=== PATIENT | male | born 1980 | race Caucasian/White ===

== ENCOUNTER 2019-08-28 22:25 | Emergency (ER) | payer MEDICARE, SELFPAY ==
--- NOTE | ~2019-08-28 | XR_ITS ---
XR chest 2V 08/28/2019 23:34 Indication: Cough and fever Procedure: 2 view chest Comparison: No prior studies for comparison. Findings: Patchy left-sided airspace disease, consistent with pneumonia. No pleural effusion. Heart s ize normal. No edema or pneumothorax. No acute osseous abnormality. There are cholecystectomy clips. Impression: 1: Patchy left-sided pneumonia. Reviewed, dictated and finalized at location A. Impression: 1: Patchy left-sided pneumonia.
[2019-08-28 22:31] VITALS: BP 158/85; PULSE 86; RESP 18; TEMP 37.4; O2SAT 100
[2019-08-28 22:55] LABS: Basophils Percent Auto 0.3 % (0.2-1.2); Eosinophils Percent Auto 0.3 % (0-4.4); Hematocrit 23.8 % (42.0-52.0); Hemoglobin 8.3 g/dL (14.0-18.0); Immature Granulocyte Absolute 0.06 K/mm3 (0.00-0.031); Immature Granulocyte Percent A 0.5 % (0-0.5); Lymphocytes Percent Auto 7.5 % (18.3-44.2); Mean Corpuscular HGB Conc 34.9 g/dl (32-36); Mean Corpuscular Hemoglobin 30.5 pg (26-34); Mean Corpuscular Volume 87.5 fl (80-100); Monocytes Absolute Auto 1.1 K/mm3 (0.1-0.6); Monocytes Percent Auto 9.4 % (2.6-8.5); Neutrophils Absolute Auto 9.9 K/mm3 (1.3-6.7); Platelet Count Result 229 k/mm3 (150-375); Red Blood Count 2.72 M/mm3 (4.6-6.20); Red Cell Distribution Width 12.7 % (11.5-14.5)
[2019-08-28 23:05] LABS: Alanine Aminotransferase 24 U/L (4-50); Alkaline Phosphatase 93 U/L (38-126); Aspartate Amino Transferase 25 U/L (17-59); Bilirubin,Total 0.4 mg/dL (0.2-1.3); Blood Urea Nitrogen 46 mg/dL (9-20); Calcium 8.3 mg/dL (8.4-10.2); Carbon Dioxide 28 mmol/L (22-30); Chloride 101 mmol/L (98-107); Estimated CRCL calculation 14 ml/min; Estimated Glomerular Filt Rate 10; Glucose 85 mg/dL (75-110); Potassium 3.9 mmol/L (3.4-5.0); Sodium 137 mmol/L (137-145)
[2019-08-28 23:06] LABS: Lactic Acid 1.2 mmol/L (0.7-2.1)
--- NOTE | 2019-08-29 00:08 | ED.FEVER ---
HPI - Fever General Chief Complaint: Fever Stated Complaint: fever Time Seen by Provider: 08/28/19 22:52 History of Present Illness HPI Narrative: Patient is a 38-year-old male who presents the ER with fever beginning yesterday. Associated with sinus congestion as well as productive cough. No dyspnea. Reports he has an 8-month-old son who recently had a URI and an ear infection. Patient has been practicing intense social distancing as there is a child in the home who is currently undergoing cancer treatments. Patient has not been treating his fevers because he does not know what medicine he can take. He is currently on peritoneal dialysis for end-stage renal disease related to diabetes. Related Data Allergies Allergy/AdvReac Type Severity Reaction Status Date / Time fluorescein Allergy Severe HIVES, BP Verified 05/30/16 17:43 DROPPED, SWELLING TONGUE Penicillins Allergy Unknown Unknown Verified 08/28/19 22:34 Sulfa (Sulfonamide Allergy Unknown Unknown Verified 08/28/19 22:34 Antibiotics) Review of Systems Review of Systems: All systems reviewed & are unremarkable except as noted in HPI and below Constitutional: Constitutional: Denies chills, Denies fatigue and Reports fever(s) ENT: Reports nasal congestion and Denies sore throat Cardiovascular: Cardiovascular: Denies chest pain and Denies radiating jaw, neck or arm pain Respiratory: Respiratory: Reports cough, Denies dyspnea and Denies wheezing PMFSH Past Medical History Medical History (Updated 08/29/19 @ 00:14 by Pascual Arevalo MD) End stage renal disease Type 1 diabetes Surgical History Surgical History (Updated 08/29/19 @ 00:13 by Pascual Arevalo MD) Presence of peritoneal dialysis catheter Previous back surgery Social History Social History (Updated 08/29/19 @ 00:13 by Pascual Arevalo MD) Smoking status: Never smoker Exam Narrative: Exam Narrative: GENERAL: Well-appearing, well-nourished, and in no acute distress. HEAD: Normocephalic, atraumatic. ENT: Mucous membranes moist. Pharyngeal erythema tonsillar exam. TMs normal bilaterally. CHEST: Clear to auscultation. No respiratory distress. HEART: Regular rate and rhythm. Normal peripheral pulses. ABDOMEN: Soft, nontender, nondistended, right side peritoneal dialysis catheter without tenderness. EXTREMITIES: Normal range of motion. No edema. SKIN: Warm, dry, no rash. NEURO: Alert and oriented x3. 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 Will prescribe azithromycin. Recommend Tylenol for fever. Vital Signs Vital signs: Vital Signs Temperature 99.4 F 08/28/19 22:31 Pulse Rate 86 08/28/19 22:31 Respiratory Rate 18 08/28/19 22:31 Blood Pressure 158/85 H 08/28/19 22:31 Pulse Oximetry 100 08/28/19 22:31 Temperature 99.4 F 08/28/19 22:31 Pulse Rate 86 08/28/19 22:31 Respiratory Rate 18 08/28/19 22:31 Blood Pressure 158/85 H 08/28/19 22:31 Pulse Oximetry 100 08/28/19 22:31 MDM - Fever Lab Data Result diagrams: 08/28/19 22:46 08/28/19 22:46 Labs: Lab Results 08/28/19 08/28/19 08/28/19 Range/Units 22:46 22:46 22:46 WBC 12.0 H (4.5-10.0) K/mm3 RBC 2.72 L (4.6-6.20) M/mm3 Hgb 8.3 L (14.0-18.0) g/dL Hct 23.8 L (42.0-52.0) % MCV 87.5 (80-100) fl MCH 30.5 (26-34) pg MCHC 34.9 (32-36) g/dl RDW 12.7 (11.5-14.5) % Plt Count 229 (150-375) k/mm3 MPV 10.0 (7.4-10.4) fl Immature Gran % (Auto) 0.5 (0-0.5) % Neut % (Auto) 82.0 H (45.5-73.1) % Lymph % (Auto) 7.5 L (18.3-44.2) % [place] % (Auto) 9.4 H (2.6-8.5) % Eos % (Auto) 0.3 (0-4.4) % Baso % (Auto) 0.3 (0.2-1.2) % Lymph # (Auto) 0.90 (0.9-3.2) K/mm3 [place] # (Auto) 1.1 H (0.1-0.6) K/mm3 Eos # (Auto) 0.0 (0-0.3) K/mm3 Baso # (Auto) 0.0 (0.0-0.1) K/mm3 Abs Immat Gran (auto) 0.06 H (0.00-0.031) K/mm3 Absolute Neuts (auto) 9.9 H
[2019-08-29] MEDS: ACETAMINOPHEN 500 MG TABLET PO (00:09)
[2019-08-29 00:13] VITALS: BP 149/84; PULSE 85; RESP 18; O2SAT 98
== END 2019-08-29 00:22 | disposition home or self-care (01) ==
PROVIDERS: Emergency Provider Emergency Medicine; PCP Physician Assistant
DX: E10.22 Type 1 diabetes mellitus with diabetic chronic kidney disease (principal); N18.6 End stage renal disease; Z99.2 Dependence on renal dialysis; J18.9 Pneumonia, unspecified organism
CPT/HCPCS: 36415; 71046; 80053; 83605; 85025; 99283; A9270

== ENCOUNTER 2019-11-04 16:36 | Emergency (ER) | payer MEDICARE, SELFPAY ==
[2019-11-04 16:48] VITALS: BP 142/88; PULSE 72; RESP 17; TEMP 36.3; O2SAT 96
[2019-11-04] MEDS: diphenhydrAMINE HCl INJ 50 MG/ML VIAL 25 MG IV PUSH (17:32)
[2019-11-04] MEDS: METOCLOPRAMIDE HCL INJ 10 MG/2 ML VIAL 5 MG IV PUSH (17:32)
[2019-11-04] MEDS: SODIUM CHLORIDE 0.9% IV 100 ML 400 ML (17:33)
--- NOTE | 2019-11-04 18:11 | ED.HA ---
HPI - Headache General Chief Complaint: Headache Stated Complaint: headaches x 2 weeks Time Seen by Provider: 11/04/19 16:56 History of Present Illness HPI Narrative: Patient is a 39-year-old male who presents the ER with headache. Reports he has had a headache since 10/18 when he had surgery on his diabetic eye. Symptoms worse over the last few days. He has been prescribed Fioricet which caused him to have diarrhea. No relief with Tylenol. No fevers or chills or sweats. Reports he has had some difficulty with depth perception over the last 24 hours but no flashers/floaters/blurred vision. No trauma to the eye. Headache is left-sided and aching but is occasionally sharp. Radiates backwards. Sensitive to light Related Data Home Medications Medication Instructions Recorded Confirmed albuterol sulfate [Ventolin HFA] INHALATION 11/04/19 alprazolam 11/04/19 amlodipine 11/04/19 frkuquaodq-axagksquubdoy-rfik cap 11/04/19 ergocalciferol (vitamin D2) 11/04/19 11/04/19 [Vitamin D2] escitalopram oxalate mg 11/04/19 furosemide 11/04/19 hydralazine 11/04/19 insulin lispro [Humalog U-100 11/04/19 Insulin] irbesartan mg 11/04/19 labetalol 11/04/19 metoprolol tartrate 11/04/19 naloxone [Narcan] INTRANASAL 11/04/19 terazosin mg 11/04/19 tramadol mg 11/04/19 Allergies Allergy/AdvReac Type Severity Reaction Status Date / Time fluorescein Allergy Severe HIVES, BP Verified 11/04/19 16:45 DROPPED, SWELLING TONGUE Penicillins Allergy Unknown Unknown Verified 11/04/19 16:45 Sulfa (Sulfonamide Allergy Unknown Unknown Verified 11/04/19 16:45 Antibiotics) Review of Systems Review of Systems: All systems reviewed & are unremarkable except as noted in HPI and below Constitutional: Constitutional: Denies chills, Denies fever(s) and Denies weakness Eyes: Eyes: Denies change in vision and Reports photophobia Neurologic: Reports headache(s), Denies focal weakness and Denies numbness PMFSH Past Medical History Medical History (Updated 11/04/19 @ 18:21 by Pascual Arevalo MD) End stage renal disease Type 1 diabetes Surgical History Surgical History (Updated 08/29/19 @ 00:13 by Pascual Arevalo MD) Presence of peritoneal dialysis catheter Previous back surgery Social History Social History (Updated 08/29/19 @ 00:13 by Pascual Arevalo MD) Smoking status: Never smoker Gender identity (if verbalized by the patient): Male Exam Narrative: Exam Narrative: GENERAL: Well-appearing, well-nourished, and in no acute distress. HEAD: Normocephalic, atraumatic. EYES: PERRL, EOMI ENT: Mucous membranes moist. CHEST: Clear to auscultation. No respiratory distress. HEART: Regular rate and rhythm. Normal peripheral pulses. EXTREMITIES: Normal range of motion. No edema. NEURO: Alert and oriented x3. Course Course Emergency Course: Headache is gone from 10/01 to 06/01 after Tylenol, Reglan, and Benadryl. Vital Signs Vital signs: Vital Signs Temperature 97.3 F L 11/04/19 16:48 Pulse Rate 72 11/04/19 16:48 Respiratory Rate 17 11/04/19 16:48 Blood Pressure 142/88 H 11/04/19 16:48 Pulse Oximetry 96 11/04/19 16:48 Temperature 97.3 F L 11/04/19 16:48 Pulse Rate 72 11/04/19 16:48 Respiratory Rate 17 11/04/19 16:48 Blood Pressure 142/88 H 11/04/19 16:48 Pulse Oximetry 96 11/04/19 16:48 Discharge Plan Discharge Clinical Impression: Headache Patient Disposition: Home, Self-Care Condition: Stable Instructions: Migraine Headache (ED) Additional Instructions: Return the ER if you have fever over 100.4 ?F, you cannot keep down food or water, you have chest pain with shortness of breath, you have additional concerns. Prescriptions: New metoclopramide HCl [Reglan] 5 mg tablet 5 mg PO BID Qty: 7 RF: 0 No Action labetalol 200 mg tablet RF: 0 tramadol 50 mg tablet RF: 0 alprazolam 0.5 mg tablet
[2019-11-04 18:38] VITALS: BP 139/90; PULSE 88; RESP 16; O2SAT 98
== END 2019-11-04 18:39 | disposition home or self-care (01) ==
PROVIDERS: Emergency Provider Emergency Medicine; PCP Physician Assistant
DX: R51 Headache (principal); E10.22 Type 1 diabetes mellitus with diabetic chronic kidney disease; N18.6 End stage renal disease; Z99.2 Dependence on renal dialysis
CPT/HCPCS: 96361; 96374; 96375; 99284; J0131; J1200; J2765

== ENCOUNTER 2019-11-08 10:27 | Emergency (ER) | payer MEDICARE, MEDICAID, SELFPAY ==
[2019-11-08] VITALS (9 sets, daily range): BP systolic 187–228; BP diastolic 94–122; PULSE 81–103; RESP 16–19; TEMP 36.7; O2SAT 95–97
--- NOTE | ~2019-11-08 | XR_ITS ---
EXAMINATION: XR chest 1V portable EXAM DATE: 11/08/2019 10:59 INDICATION: Chest pain, vomiting. Hiccups for 2 days. TECHNIQUE: Portable AP frontal chest x-ray was obtained. Comparison is made to prior examination from 08/28/2019. FINDINGS: Previously seen patchy left upper lobe infiltrate has resolved. The lungs are clear. There are no pleural effusions. The cardiomediastinal silhouette is within normal limits. There is no pn eumothorax suspected. The bones and soft tissues are unremarkable. IMPRESSION: No acute cardiopulmonary findings. Reviewed, dictated and finalized at location A.
--- NOTE | 2019-11-08 10:43 | ECG_ITS ---
Measurements Intervals [place] Rate: 88 P: 62 TN: 137 QRS: 27 QRSD: 93 T: 65 QT: 373 QTc: 454 Interpretive Statements SINUS RHYTHM LEFT ATRIAL ENLARGEMENT BORDERLINE R WAVE PROGRESSION, ANTERIOR LEADS BORDERLINE ECG Electronically Signed On 11-08-2019 11:20:52 CDT by Lokesh Luna D.O.
[2019-11-08] MEDS: FAMOTIDINE 20 MG/2 ML VIAL IV PUSH (10:59)
[2019-11-08] MEDS: METOCLOPRAMIDE HCL INJ 10 MG/2 ML VIAL IV PUSH (10:59)
[2019-11-08] MEDS: SODIUM CHLORIDE 0.9% IV 500 ML 999 ML IV CONT ×2 (10:59→13:56)
[2019-11-08 11:02] LABS: Alanine Aminotransferase 34 U/L (4-50); Albumin Level 3.2 g/dL (3.5-5.1); Alkaline Phosphatase 133 U/L (38-126); Anion Gap 10 mmol/L (8-16); Aspartate Amino Transferase 29 U/L (17-59); Basophils Percent Auto 0.3 % (0.2-1.2); Bilirubin,Total 0.5 mg/dL (0.2-1.3); Blood Urea Nitrogen 61 mg/dL (9-20); Calcium 8.6 mg/dL (8.4-10.2); Carbon Dioxide 29 mmol/L (22-30); Chloride 91 mmol/L (98-107); Eosinophils Absolute Auto 0.1 K/mm3 (0-0.3); Eosinophils Percent Auto 0.9 % (0-4.4); Estimated CRCL calculation 14 ml/min; Estimated Glomerular Filt Rate 9; Glucose 418 mg/dL (75-110); Hematocrit 50.5 % (42.0-52.0); Hemoglobin 17.2 g/dL (14.0-18.0); Immature Granulocyte Absolute 0.02 K/mm3 (0.00-0.031); Immature Granulocyte Percent A 0.2 % (0-0.5); Lipase 38 U/L (23-300); Lymphocytes Absolute Auto 0.82 K/mm3 (0.9-3.2); Lymphocytes Percent Auto 9.5 % (18.3-44.2); Mean Corpuscular HGB Conc 34.1 g/dl (32-36); Mean Corpuscular Hemoglobin 29.9 pg (26-34); Mean Corpuscular Volume 87.8 fl (80-100); Mean Platelet Volume 11.1 fl (7.4-10.4); Monocytes Absolute Auto 0.6 K/mm3 (0.1-0.6); Monocytes Percent Auto 6.6 % (2.6-8.5); Neutrophils Absolute Auto 7.1 K/mm3 (1.3-6.7); Neutrophils Percent Auto 82.5 % (45.5-73.1); Platelet Count Result 201 k/mm3 (150-375); Potassium 4.1 mmol/L (3.4-5.0); Red Blood Count 5.75 M/mm3 (4.6-6.20); Red Cell Distribution Width 13.4 % (11.5-14.5); Sodium 130 mmol/L (137-145); White Blood Count 8.6 K/mm3 (4.5-10.0)
[2019-11-08 11:06] LABS: INR 0.9; Prothrombin Time 11.9 Seconds (11.1-14.7)
[2019-11-08 11:07] LABS: Partial Thromboplastin Time 26.1 SECONDS (22.3-36.8)
[2019-11-08 11:13] LABS: Troponin I 0.025 ng/mL (0.000-0.034)
[2019-11-08] MEDS: METOPROLOL TARTRATE INJ 5 MG/5 ML VIAL IV PUSH ×2 (11:47→12:34)
[2019-11-08] MEDS: hydrALAZINE HCL 20 MG/ML VIAL 10 MG IV PUSH (11:47)
[2019-11-08 11:52] LABS: Lactic Acid Reflex 0.8 mmol/L (0.7-2.1)
--- NOTE | 2019-11-08 13:25 | ED.GENADULT ---
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 Patient notes some discomfort across the upper chest worse with hiccuping. Patient denies rectal bleeding or hematemesis. Patient denies any abdominal pain. Patient was seen yesterday at an urgent care and given Zofran which has not helped. Related Data Home Medications Medication Instructions Recorded Confirmed albuterol sulfate [Ventolin HFA] INHALATION 11/04/19 alprazolam 11/04/19 amlodipine 11/04/19 hthlncaymg-icbvnlicwqbaw-eqqb cap 11/04/19 ergocalciferol (vitamin D2) 11/04/19 11/04/19 [Vitamin D2] escitalopram oxalate mg 11/04/19 furosemide 11/04/19 hydralazine 11/04/19 insulin lispro [Humalog U-100 11/04/19 Insulin] irbesartan mg 11/04/19 labetalol 11/04/19 metoprolol tartrate 11/04/19 naloxone [Narcan] INTRANASAL 11/04/19 terazosin mg 11/04/19 tramadol mg 11/04/19 Allergies Allergy/AdvReac Type Severity Reaction Status Date / Time fluorescein Allergy Severe HIVES, BP Verified 11/08/19 11:12 DROPPED, SWELLING TONGUE Penicillins Allergy Unknown Unknown Verified 11/08/19 11:12 Sulfa (Sulfonamide Allergy Unknown Unknown Verified 11/08/19 11:12 Antibiotics) Review of Systems Review of Systems: All systems reviewed & are unremarkable except as noted in HPI and below PMFSH Past Medical History Medical History End stage renal disease Type 1 diabetes Surgical History Surgical History Presence of peritoneal dialysis catheter Previous back surgery Social History Social History Smoking status: Never smoker Gender identity (if verbalized by the patient): Male Exam Narrative: Exam Narrative: GENERAL: Well-appearing, well-nourished, and in no acute distress. HEAD: Normocephalic, atraumatic. EYES: PERRLA and EOMI. ENT: Nares clear, no rhinorrhea or epistaxis. Mucous membranes moist. CHEST: Clear to auscultation. No respiratory distress. No wheezes rales or rhonchi HEART: Regular rate and rhythm. No murmur heard. Normal peripheral pulses. ABDOMEN: Soft, nontender, nondistended EXTREMITIES: Normal range of motion. No edema. SKIN: Warm, dry, no rash. NEURO: No focal deficits. Alert and oriented x3. Cranial nerves II through XII grossly intact PSYCH: Normal mood and affect. Course Course Emergency Course: Patient in the room at this time in no distress feeling much better with interventions afebrile nontoxic-appearing aware of discussions and recommendations of his hand method lasting machine operator patient notes that his hiccups have resolved psoas is emesis blood pressure is much improved and he is tolerating p.o. intake Consultations Consultation #1: Discussed case with Dr. sourav schultz the hand method lasting machine operator who feels it is safe to send the patient home with outpatient follow-up Date: 11/08/19 Time: 14:09 Vital Signs Vital signs: Vital Signs Temperature 98.0 F 11/08/19 10:38 Pulse Rate 91 11/08/19 10:38 Respiratory Rate 18 11/08/19 10:38 Blood Pressure 213/119 H 11/08/19 10:38 Pulse Oximetry 97 11/08/19 10:38 Temperature 98.0 F 11/08/19 10:38 Pulse Rate 81 11/08/19 14:04 Respiratory Rate 16 11/08/19 14:04 Blood Pressure 191/94 H 11/08/19 14:04 Pulse Oximetry 95 11/08/19 14:04 Medical
[2019-11-08] MEDS: chlorproMAZINE HCL 25 MG TABLET PO (13:26)
== END 2019-11-08 15:04 | disposition home or self-care (01) ==
PROVIDERS: Emergency Medicine Emergency Medical Services; Emergency Provider Emergency Medicine; PCP Physician Assistant
DX: R11.2 Nausea with vomiting, unspecified (principal); E11.22 Type 2 diabetes mellitus with diabetic chronic kidney disease; N18.6 End stage renal disease; Z79.4 Long term (current) use of insulin; Z99.2 Dependence on renal dialysis
CPT/HCPCS: 36415; 71045; 80048; 80076; 83605; 83690; 84484; 85025; 85610; 85730; 87040; 93005; 96361; 96374; 96375; 96376; 99284; A9270; J0131; J0360; J2765; J7040

== ENCOUNTER 2019-11-12 20:53 | Emergency (ER) | payer MEDICARE, MEDICAID, SELFPAY ==
--- NOTE | ~2019-11-12 | XR_ITS ---
EXAMINATION: XR chest 2V DATE: 11/12/2019 21:39 INDICATION: Mid chest pain. Hiccups. TECHNIQUE: Frontal and lateral views of the chest were obtained. COMPARISON: Chest single view 11/08/2019, CT abdomen and pelvis 12/01/2015 FINDINGS: The chest demonstrates clear lungs without pneumonia, pleural effusion, or pneumothorax. Th e heart size is normal. Surgical clips in the right upper quadrant are likely from cholecystectomy. IMPRESSION: 1. No acute cardiopulmonary disease. Reviewed, dictated and finalized at location A.
[2019-11-12 20:56] VITALS: BP 194/103; PULSE 89; RESP 18; TEMP 36.8; O2SAT 98
--- NOTE | 2019-11-12 21:24 | ECG_ITS ---
Measurements Intervals [place] Rate: 82 P: 54 [place]: 144 QRS: 15 QRSD: 93 T: 50 QT: 400 QTc: 469 Interpretive Statements SINUS RHYTHM LEFT ATRIAL ENLARGEMENT BORDERLINE R WAVE PROGRESSION, ANTERIOR LEADS BASELINE ARTIFACT- I, II, III, V4-V6 BORDERLINE ECG Electronically Signed On 11-13-2019 6:52:30 CDT by Lokesh Luna D.O.
--- NOTE | 2019-11-12 21:33 | ED.GENADULT ---
HPI - General Adult General Chief complaint: Unspecified Stated complaint: indigestion real bad Time Seen by Provider: 11/12/19 21:03 Source: patient Mode of arrival: ambulatory Limitations: no limitations History of Present Illness HPI narrative: 49 years old white male presents with a cup for the last 7 days. Get better sometimes with vomiting, nothing make it worse. Patient denies any fever, chills, chest pain, shortness of breath, abdominal pain, back pain, headache, or similar symptoms. History of type 1 diabetes, hypertension, peritoneal dialysis. Patient denies smoking, drinking or using marijuana. Related Data Home Medications Medication Instructions Recorded Confirmed albuterol sulfate [Ventolin HFA] INHALATION 11/04/19 alprazolam 11/04/19 amlodipine 11/04/19 crkpixtevi-ioktcvdjqases-yuua cap 11/04/19 ergocalciferol (vitamin D2) 11/04/19 11/04/19 [Vitamin D2] escitalopram oxalate mg 11/04/19 furosemide 11/04/19 hydralazine 11/04/19 insulin lispro [Humalog U-100 11/04/19 Insulin] irbesartan mg 11/04/19 labetalol 11/04/19 metoprolol tartrate 11/04/19 naloxone [Narcan] INTRANASAL 11/04/19 terazosin mg 11/04/19 tramadol mg 11/04/19 Allergies Allergy/AdvReac Type Severity Reaction Status Date / Time fluorescein Allergy Severe HIVES, BP Verified 11/12/19 21:03 DROPPED, SWELLING TONGUE Penicillins Allergy Unknown Unknown Verified 11/12/19 21:03 Sulfa (Sulfonamide Allergy Unknown Unknown Verified 11/12/19 21:03 Antibiotics) Review of Systems Review of Systems: Narrative: CONSTITUTIONAL: Denies fever, chills, or sweats. EYES: Denies visual changes, redness, or discharge. ENT: Denies rhinorrhea, congestion, sore throat, or otalgia. CARDIOVASCULAR: Denies chest pain, palpitations, or edema. RESPIRATORY: Denies cough or dyspnea. GASTROINTESTINAL: Denies abdominal pain, nausea, vomiting, or diarrhea. GENITOURINARY: Denies dysuria or hematuria. SKIN: Denies rash or itching. MUSCULOSKELETAL: Denies back pain, joint pain, or myalgia. NEUROLOGIC: Denies headache, numbness, or weakness. PSYCHIATRIC: Denies anxiety or depression. [facility] Past Medical History Medical History End stage renal disease Type 1 diabetes Surgical History Surgical History Presence of peritoneal dialysis catheter Previous back surgery Social History Social History Smoking status: Never smoker Gender identity (if verbalized by the patient): Male Exam Narrative: Exam Narrative: General appearance: Well-developed, well-nourished Skin: Normal color Head: Normocephalic, nontraumatic Eyes: Clear conjunctiva ENT: Oropharynx normal, ears normal, nose normal Neck: Supple, nontender Chest and respiratory: Airway patent, no respiratory distress, no accessory muscle use Heart: Regular rate/rhythm Abdomen: Soft, nontender, no organomegaly, quiet bowel sounds Vascular: Normal peripheral pulses, normal capillary refill. Musculoskeletal: Normal range of motion, nontender back Neurologic: Alert and oriented ?3, SVP is normal as tested, no gross motor deficit Course Course Emergency Course: Stable Consultations Consultation #1: DR PANCHAL Date: 11/12/19 Time: 22:34 Vital Signs Vital signs: Vital Signs Temperature 36.8 C 11/12/19 20:56 Pulse Rate 89 11/12/19 20:56 Respiratory Rate 18 11/12/19 20:56 Blood Pressure 194/103 H 11/12/19 20:56 Pulse Oximetry 98 11/12/19 20:56 Temperature 36.8 C 11/12/19 20:56 Pulse Rate 89 11/12/19 20:56 R
[2019-11-12 21:39] LABS: Basophils Percent Auto 0.5 % (0.2-1.2); Eosinophils Absolute Auto 0.2 K/mm3 (0-0.3); Eosinophils Percent Auto 2.4 % (0-4.4); Hematocrit 48.1 % (42.0-52.0); Hemoglobin 16.5 g/dL (14.0-18.0); Immature Granulocyte Absolute 0.02 K/mm3 (0.00-0.031); Immature Granulocyte Percent A 0.3 % (0-0.5); Lymphocytes Absolute Auto 1.05 K/mm3 (0.9-3.2); Lymphocytes Percent Auto 13.8 % (18.3-44.2); Mean Corpuscular HGB Conc 34.3 g/dl (32-36); Mean Corpuscular Hemoglobin 29.8 pg (26-34); Mean Corpuscular Volume 86.8 fl (80-100); Mean Platelet Volume 10.2 fl (7.4-10.4); Monocytes Absolute Auto 0.7 K/mm3 (0.1-0.6); Monocytes Percent Auto 9.3 % (2.6-8.5); Neutrophils Absolute Auto 5.6 K/mm3 (1.3-6.7); Neutrophils Percent Auto 73.7 % (45.5-73.1); Platelet Count Result 253 k/mm3 (150-375); Red Blood Count 5.54 M/mm3 (4.6-6.20); Red Cell Distribution Width 13.2 % (11.5-14.5); White Blood Count 7.6 K/mm3 (4.5-10.0)
[2019-11-12 21:42] LABS: Add Urine Microscopic? YES; Appearance Urine Clear (Clear); Bacteria Urine Trace /hpf; Bilirubin Urine Negative (Negative); Blood Urine Negative (Negative); Color Urine Yellow (Yellow); Glucose Urine UA 3+ mg/dL (Negative); Ketones Urine Negative (Negative); Leukocyte Esterase Ur Negative LEU/UL (Negative); Mucus Urine Rare /lpf; Nitrate Urine Negative (Negative); Protein Urine 3+ mg/dL (Negative); RBC Urine 0-2 /hpf (0-2); Specific Grav Ur 1.013 (1.001-1.035); Squamous Epithelial Cell Urine Rare /hpf (Few); Urobilinogen Urine Negative mg/dL (<2.0); WBC Urine 0-3 /hpf
[2019-11-12] MEDS: METOCLOPRAMIDE HCL INJ 10 MG/2 ML VIAL IV PUSH (21:46)
[2019-11-12 21:50] LABS: Alanine Aminotransferase 35 U/L (4-50); Albumin Level 2.6 g/dL (3.5-5.1); Alkaline Phosphatase 101 U/L (38-126); Amylase 52 U/L (30-110); Anion Gap 4 mmol/L (8-16); Aspartate Amino Transferase 42 U/L (17-59); Bilirubin,Total 0.5 mg/dL (0.2-1.3); Blood Urea Nitrogen 54 mg/dL (9-20); Calcium 8.5 mg/dL (8.4-10.2); Carbon Dioxide 33 mmol/L (22-30); Chloride 95 mmol/L (98-107); Estimated CRCL calculation 13 ml/min; Estimated Glomerular Filt Rate 9; Glucose 153 mg/dL (75-110); Lipase 37 U/L (23-300); Potassium 3.1 mmol/L (3.4-5.0); Sodium 132 mmol/L (137-145)
[2019-11-12 22:09] LABS: Erythrocyte Sedimentation Rate 5 mm/hr (0-20)
[2019-11-12] MEDS: chlorproMAZINE HCL INJ 50 MG/2 ML AMP IM (22:47)
[2019-11-12 23:11] VITALS: BP 193/105; PULSE 88; RESP 18; O2SAT 98
== END 2019-11-12 23:12 | disposition home or self-care (01) ==
PROVIDERS: Emergency Provider Emergency Medicine; PCP Physician Assistant
DX: R06.6 Hiccough (principal); E10.22 Type 1 diabetes mellitus with diabetic chronic kidney disease; N18.6 End stage renal disease; Z79.4 Long term (current) use of insulin; Z99.2 Dependence on renal dialysis; E10.43 Type 1 diabetes mellitus with diabetic autonomic (poly)neuropathy; K31.84 Gastroparesis; R94.31 Abnormal electrocardiogram [ECG] [EKG]
CPT/HCPCS: 36415; 71046; 80053; 81001; 82150; 83690; 85025; 85652; 93005; 96372; 96374; 99284; J2765; J3230

== ENCOUNTER 2019-11-18 10:24 | Inpatient (IN) | payer MEDICARE, MEDICAID, SELFPAY ==
[2019-11-18] VITALS (19 sets, daily range): BP systolic 156–214; BP diastolic 88–114; PULSE 95–122; RESP 12–20; TEMP 36.1–37.2; O2SAT 94–100; BMI 21.3
--- NOTE | ~2019-11-18 | CT_ITS ---
EXAMINATION: CT BRAIN W/O DATE: 11/19/2019 06:34 INDICATION: Seizure TECHNIQUE: Computed tomography (CT) of the head was performed without intravenous contrast. The dose- length product was 605.33 mGy-cm. The mA was adjusted according to patient size. Iterative reconstruc tion technique was employed. COMPARISON: CT dated 05/30/2016 FINDINGS: Study degraded by motion artifact. Normal brain parenchymal volume for age. Normal kiser-whi te differentiation. No acute intracranial hemorrhage, infarction, mass or mass effect. No ventriculomegaly or midline shift. Midline sagittal images demonstrate a normal corpus callosum, c raniovertebral junction and sella turcica. Basilar cisterns are patent. Paranasal sinuses and mastoids are pneumatized. No depressed skull fractures. IMPRESSION: 1. No acute intracranial abnormality. Reviewed, dictated and finalized at location A.
--- NOTE | ~2019-11-18 | XR_ITS ---
EXAMINATION: XR chest 1V portable 11/18/2019 15:15 INDICATION: Chest pain. Leukocytosis. PROCEDURE: AP portable chest COMPARISON: 11/12/2019 FINDINGS: The lungs are clear. The cardiomediastinal silhouette is within normal limits. There are no pleural effusions. There is no pneumothorax suspected. IMPRESSION: 1: NO ACUTE CARDIOPULMONARY DISEASE. Reviewed, dictated and finalized at location A.
[2019-11-18 10:44] LABS: Glucose Point of Care > 500 (65-105)
--- NOTE | 2019-11-18 10:50 | ED.NAVMDI ---
HPI - Nausea/Vomiting/Diarrhea General Chief complaint: Nausea/Vomiting/Diarrhea Stated complaint: elevated blood suger, n/v Time Seen by Provider: 11/18/19 10:50 Source: patient Mode of arrival: ambulatory Limitations: no limitations History of Present Illness HPI Narrative: Pt c/o elev blood sugar accompanied by n/v and fatigue started yesterday. Pt denies any cp, sob, abd pain, diarrhea or fever. Related Data Home Medications Medication Instructions Recorded Confirmed albuterol sulfate [Ventolin HFA] INHALATION 11/04/19 alprazolam 11/04/19 amlodipine 11/04/19 qjstwjbsvc-rdijlngfczzzs-rvvz cap 11/04/19 ergocalciferol (vitamin D2) 11/04/19 11/04/19 [Vitamin D2] escitalopram oxalate mg 11/04/19 furosemide 11/04/19 hydralazine 11/04/19 insulin lispro [Humalog U-100 11/04/19 Insulin] irbesartan mg 11/04/19 labetalol 11/04/19 metoprolol tartrate 11/04/19 naloxone [Narcan] INTRANASAL 11/04/19 terazosin mg 11/04/19 tramadol mg 11/04/19 Allergies Allergy/AdvReac Type Severity Reaction Status Date / Time fluorescein Allergy Severe HIVES, BP Verified 11/18/19 10:34 DROPPED, SWELLING TONGUE Penicillins Allergy Unknown Unknown Verified 11/18/19 10:34 Sulfa (Sulfonamide Allergy Unknown Unknown Verified 11/18/19 10:34 Antibiotics) Review of Systems Review of Systems: All systems reviewed & are unremarkable except as noted in HPI and below Constitutional: Constitutional: Denies body ache(s), Denies chills, Denies excessive sweating, Denies fatigue, Denies fever(s), Denies headache(s), Denies lethargy, Denies malaise, Denies weakness and Denies weight loss Eyes: Eyes: Denies blurry vision, Denies change in vision and Denies loss of vision ENT: Denies dizziness, Denies ear discharge, Denies headache(s), Denies lip swelling, Denies epistaxis, Denies nasal congestion, Denies neck pain, Denies throat swelling and Denies tongue swelling Cardiovascular: Cardiovascular: Denies chest pain, Denies chest pain at rest, Denies chest pain with activity, Denies diaphoresis, Denies rapid heart rate, Denies edema, Denies irregular heart rhythm, Denies lightheadedness, Denies palpitations, Denies dyspnea and Denies dyspnea on exertion Respiratory: Respiratory: Denies chest congestion, Denies cough, Denies hemoptysis, Denies dyspnea and Denies dyspnea on exertion Gastrointestinal: Gastrointestinal: Denies abdominal pain, Denies melena, Denies hematochezia, Denies diarrhea and Denies hematemesis Musculoskeletal: Musculoskeletal: Denies abnormal gait, Denies deformity, Denies joint swelling, Denies limited range of motion, Denies neck pain and Denies numbness Neurologic: Denies Abnormal speech present, Denies abnormal gait, Denies confusion, Denies dizziness, Denies headache(s), Denies focal weakness, Denies loss of vision, Denies numbness, Denies Other visual disturbances, Denies Sensory deficit (Neuro) and Denies weakness Psychiatric: Psychiatric: Denies confusion, Denies depression, Denies auditory hallucinations, Denies homicidal ideation and Denies suicidal ideation Endocrine: Endocrine: Denies cold intolerance, Denies excessive sweating, Denies fatigue, Denies heat intolerance and Denies palpitations Hematologic/Lymphatic: Hematologic/Lymphatic: Denies easy bleeding and Denies easy bruising Allergic/Immunologic: Allergic/Immunologic: Denies lip swelling, Denies throat swelling and Denies tongue swelling PMF Social History Social History Smoking status: Never smoker Gender identity (if verbalized by the patient): Male Exam Const: General: cooperative, healthy appearing, comfortable, no acute distress, well developed, alert and awake; No confusion Orientation/consciousness: oriented to person, oriented to place, oriented to time, patient oriented x3 and No confusion Limitations: no limitations HENMT: Head: normal to inspection,
[2019-11-18 10:57] LABS: Basophils Percent Auto 0.3 % (0.2-1.2); Eosinophils Percent Auto 0.1 % (0-4.4); Hematocrit 44.5 % (42.0-52.0); Hemoglobin 15.5 g/dL (14.0-18.0); Immature Granulocyte Absolute 0.05 K/mm3 (0.00-0.031); Immature Granulocyte Percent A 0.4 % (0-0.5); Lymphocytes Absolute Auto 0.78 K/mm3 (0.9-3.2); Lymphocytes Percent Auto 6.5 % (18.3-44.2); Mean Corpuscular HGB Conc 34.8 g/dl (32-36); Mean Corpuscular Hemoglobin 29.2 pg (26-34); Mean Platelet Volume 10.6 fl (7.4-10.4); Monocytes Absolute Auto 0.8 K/mm3 (0.1-0.6); Monocytes Percent Auto 6.6 % (2.6-8.5); Neutrophils Absolute Auto 10.3 K/mm3 (1.3-6.7); Neutrophils Percent Auto 86.1 % (45.5-73.1); Platelet Count Result 264 k/mm3 (150-375); Red Cell Distribution Width 13.2 % (11.5-14.5); White Blood Count 11.9 K/mm3 (4.5-10.0)
[2019-11-18 11:04] LABS: Alveolar/Arterial O2 Gradient 15.6 mmHg; Base Excess ABG 4.6 mEq/l (+/-2.0); Carboxyhemoglobin 1.5 % THb (0-2.0); Fractional Inspired Oxygen 21 %; HCO3 ABG 28.2 mEq/l (22.0-26.0); Methemoglobin ABG 0.2 %THb (0-1.5); Oxygen Content ABG 20.4 %vol (16.0-22.0); Oxygen Saturation ABG 97.3 % (95.0-100.0); Oxyhemoglobin 95.1 % THb (90.0-100.0); PCO2 ABG 38.5 mmHg (35.0-45.0); PO2 FiO2 Ratio Arterial Blood 4.19 %; Reduced Hemoglobin 3.2 %THb (0-5.0); Total Hemoglobin 15.2 g/dL (12.0-18.0); pH ABG 7.483 (7.350-7.450)
[2019-11-18 11:05] LABS: Device ROOM AIR; Modified Allen's Test Pass; Site Drawn RIGHT RADIAL
[2019-11-18 11:18] LABS: Albumin Level 2.7 g/dL (3.5-5.1); Alkaline Phosphatase 107 U/L (38-126); Anion Gap 9 mmol/L (8-16); Aspartate Amino Transferase 47 U/L (17-59); Bilirubin,Total 0.5 mg/dL (0.2-1.3); Blood Urea Nitrogen 69 mg/dL (9-20); Calcium 8.8 mg/dL (8.4-10.2); Carbon Dioxide 33 mmol/L (22-30); Chloride 82 mmol/L (98-107); Estimated CRCL calculation 14 ml/min; Estimated Glomerular Filt Rate 9; Glucose 619 mg/dL (75-110); Magnesium 1.7 mg/dL (1.6-2.3); Phosphorus 4.3 mg/dL (2.5-4.5); Sodium 124 mmol/L (137-145)
[2019-11-18 11:20] LABS: Beta-Hydroxybutyrate/Acetoacetate 0.09 mmol/L (0.02-0.27)
[2019-11-18 11:21] LABS: Alanine Aminotransferase 42 U/L (4-50)
[2019-11-18] MEDS: METOCLOPRAMIDE HCL INJ 10 MG/2 ML VIAL IV PUSH (11:31)
[2019-11-18] MEDS: LACTATED RINGERS 1,000 ML 999 ML IV CONT (11:35)
--- NOTE | 2019-11-18 12:12 | PC.NURSE ---
Per verbal order of Dr. Archibald, only 500ml of lactated ringers was infused. Patient tolerated well.
[2019-11-18 12:25] LABS: Glucose Point of Care 452 (65-105)
[2019-11-18] MEDS: LABETALOL HCL INJ 100 MG/20 ML VIAL 20 MG IV PUSH ×2 (13:41→17:22)
[2019-11-18] MEDS: SODIUM CHLORIDE 0.9% IV 1,000 ML 100 ML IV CONT (13:43)
[2019-11-18 13:45] LABS: Add Urine Microscopic? YES; Appearance Urine Clear (Clear); Bilirubin Urine Negative (Negative); Blood Urine 1+ (Negative); Color Urine Yellow (Yellow); Glucose Urine UA 3+ mg/dL (Negative); Ketones Urine Negative (Negative); Leukocyte Esterase Ur Negative LEU/UL (Negative); Nitrate Urine Negative (Negative); Protein Urine 3+ mg/dL (Negative); RBC Urine 0-2 /hpf (0-2); Specific Grav Ur 1.015 (1.001-1.035); Urobilinogen Urine Negative mg/dL (<2.0); WBC Urine 0-3 /hpf
--- NOTE | 2019-11-18 14:17 | PM.IMHP ---
H&P: HPI History of Present Illness Date/Time: 11/18/19 14:17 Chief complaint: Severe Hyperglycemia/HTN URGENCY ESRD ON DIALYSIS Narrative: Ari Zuniga is a 39 year old male Who has end-stage renal disease. The patient does peritoneal dialysis. The patient does zone dialysis at home. On a nightly basis. The patient has diabetes type 1 that was diagnosed when he was about 10 years old. The patient stated he is on a list for a kidney transplant as well as a pancreas transplant. The patient came here with nausea vomiting and diarrhea. The patient has been very fatigued since yesterday. The patient has insulin pump and has been managing his own insulin until today. The patient stated that he feels too ill to be able to manage his insulin pump today. He has an anion gap of 9 and his blood sugar was greater than 500. His sodium was noted to be 124. His glucose was noted to be 452 with the last check. Creatinine 6.7 BUN 69 GFR is 14. The patient states that he does see Dr. Carmichael. Potassium was 3.0. He was not given any insulin but was given 2 500 mL boluses of LR in the emergency room. He was not given any insulin in ER due to fear of dropping his potassium even more. Patient's blood pressures are also running high. For 156/100 to 204/110 213/112 and last reading was 202/101. He was given Reglan IV push, IV potassium and oral potassium, and IV labetalol . Patient's beta hydroxybutyrate was noted to be normal at 0.09. Date of service 11/18/2019 Review of Systems Review of Systems: All systems reviewed & are unremarkable except as noted in HPI and below Constitutional: Constitutional: Reports as per HPI and Reports no additional constitutional complaints Eyes: Eyes: Reports as per HPI and Reports no additional eye complaints ENT: Reports system reviewed and no additional complaints, except as documented and Reports Normal hearing present Cardiovascular: Cardiovascular: Reports no additional cardiovascular complaints Respiratory: Respiratory: Reports as per HPI and Reports no additional respiratory complaints Gastrointestinal: Gastrointestinal: Reports as per HPI and Reports no additional gastrointestinal complaints Musculoskeletal: Musculoskeletal: Reports no additional musculoskeletal complaints Integumentary/Breasts: Skin/Breast: Reports system reviewed and no additional complaints, except as docu Neurologic: Reports system reviewed and no additional complaints, except as documented and Reports Normal hearing present Psychiatric: Psychiatric: Reports no additional psychiatric complaints and Reports as per HPI Endocrine: Endocrine: Reports no additional endocrine complaints Hematologic/Lymphatic: Hematologic/Lymphatic: Reports no additional hematologic/lymphatic complaints Allergic/Immunologic: Allergic/Immunologic: Reports no additional allergic/immunologic complaints [facility] Past Medical History Medical History (Updated 11/18/19 @ 14:43 by Savi Oleary NP) Anxiety Depression End stage renal disease End stage renal disease on dialysis peritoneal dialysis Hypertension Migraines Type 1 diabetes diagnosis at the age of 10 and has an insulin pump Surgical History Surgical History Presence of peritoneal dialysis catheter Previous back surgery Family History Family History (Updated 11/18/19 @ 14:44 by Savi Oleary NP) Mother Diabetes mellitus Social History Social History (Updated 11/18/19 @ 14:45 by Savi Oleary NP) Social History: the patient lives with his fiancee. He is disabled. The patient stated that he is on a transplant list for a kidney as well as pancreas. He has no biological children but is fiance has 1 child that he is raising. The patient is a lifelong nonsmoker. He denies any alcohol marijuana or illicit drug use. His fiancee is the durable power biological science technician fish for healthcare. He desires to be a full code. Smoking status:
[2019-11-18] MEDS: PROMETHAZINE HCL 25 MG/ML AMPUL 12.5 MG IV PUSH (15:02)
--- NOTE | 2019-11-18 15:10 | PC.NURSE ---
Receiving RN notified that patient is going to xray on the way to the floor. She is also notified that patient was given medication for nausea and vomiting.
--- NOTE | 2019-11-18 15:42 | ADMGEN ---
This patient, Ari Zuniga, was admitted to IMU Room 214-01. Patient/family oriented to hospital policies and general routines including ID bracelet, bed and alarms, visiting hours, pain management, procedures, bathroom and other care routines, personal items, smoking policy, room service/diet, and visiting hours. Valuables list has been completed. Information on how to activate the Rapid Response Team has been discussed. Patient/Family are encouraged to report perceived risks to care and to ask questions if they do not understand what they are told or what they should do.
[2019-11-18] MEDS: chlorproMAZINE HCL 10 MG TABLET PO (15:51)
[2019-11-18 16:21] LABS: Anion Gap 9 mmol/L (8-16); Blood Urea Nitrogen 71 mg/dL (9-20); Calcium 8.4 mg/dL (8.4-10.2); Carbon Dioxide 37 mmol/L (22-30); Chloride 82 mmol/L (98-107); Estimated CRCL calculation 14 ml/min; Estimated Glomerular Filt Rate 9; Glucose 534 mg/dL (75-110); Lipase 29 U/L (23-300); Potassium 3.1 mmol/L (3.4-5.0); Sodium 128 mmol/L (137-145)
[2019-11-18] MEDS: hydrALAZINE HCL 20 MG/ML VIAL 10 MG IV PUSH (16:35)
[2019-11-18 17:11] LABS: Glucose Point of Care > 500 (65-105)
--- NOTE | 2019-11-18 17:13 | ECG_ITS ---
Measurements Intervals Moore Rate: 112 P: 64 RI: 124 QRS: 51 QRSD: 93 T: 73 QT: 370 QTc: 507 Interpretive Statements SINUS TACHYCARDIA POSSIBLE LEFT ATRIAL ENLARGEMENT ABNORMAL ECG Electronically Signed On 11-19-2019 7:42:01 CDT by Lokesh Luna D.O.
[2019-11-18] MEDS: diphenhydrAMINE HCl INJ 50 MG/ML VIAL 25 MG IV PUSH (17:21)
[2019-11-18] MEDS: INSULIN ASPART (*BKC) 100 UNITS/ML 10 UNITS SUB-Q ×2 (17:22→19:25)
[2019-11-18 18:41] LABS: Glucose Point of Care > 500 (65-105)
[2019-11-18] MEDS: INSULIN GLARGINE (*BKC) 100 UNITS/ML 10 UNITS SUB-Q (19:26)
[2019-11-18] MEDS: ONDANSETRON INJ 4 MG/2 ML VIAL IV PUSH (20:04)
[2019-11-18 20:39] LABS: Glucose Point of Care 428 (65-105)
[2019-11-18] MEDS: METOPROLOL TARTRATE 50 MG TAB PO (21:04)
[2019-11-18] MEDS: hydrALAZINE HCL 50 MG TABLET PO (21:04)
[2019-11-18] MEDS: TERAZOSIN HCL 1 MG CAPSULE 2 MG PO (21:05)
[2019-11-18] MEDS: POTASSIUM CHLORIDE 20 MEQ TABLET 40 MEQ PO (21:05)
[2019-11-19] VITALS (22 sets, daily range): BP systolic 137–200; BP diastolic 63–110; PULSE 92–151; RESP 15–24; TEMP 36.3–37.7; O2SAT 78–99
[2019-11-19 00:03] LABS: Glucose Point of Care 329 (65-105)
[2019-11-19] MEDS: hydrALAZINE HCL 20 MG/ML VIAL 10 MG IV PUSH ×2 (00:16→08:39)
[2019-11-19] MEDS: ONDANSETRON INJ 4 MG/2 ML VIAL IV PUSH ×5 (00:17→18:04)
[2019-11-19 00:51] LABS: Anion Gap 4.99999 mmol/L (8-16); Blood Urea Nitrogen 68 mg/dL (9-20); Calcium 8.8 mg/dL (8.4-10.2); Carbon Dioxide > 40 mmol/L (22-30); Chloride 86 mmol/L (98-107); Estimated CRCL calculation 15 ml/min; Estimated Glomerular Filt Rate 10; Glucose 369 mg/dL (75-110); Potassium 3.1 mmol/L (3.4-5.0); Sodium 131 mmol/L (137-145)
[2019-11-19] MEDS: INSULIN ASPART (*BKC) 100 UNITS/ML 8 UNITS SUB-Q (01:14)
[2019-11-19] MEDS: LABETALOL HCL INJ 100 MG/20 ML VIAL 20 MG IV PUSH ×2 (01:14→04:46)
[2019-11-19] MEDS: KCL 20 MEQ/SW 100 ML 100 ML 50 MEQ IVPB (01:18)
[2019-11-19 04:23] LABS: Glucose Point of Care 337 (65-105)
[2019-11-19 05:34] LABS: Alanine Aminotransferase 42 U/L (4-50); Albumin Level 2.9 g/dL (3.5-5.1); Alkaline Phosphatase 100 U/L (38-126); Anion Gap 9.99999 mmol/L (8-16); Aspartate Amino Transferase 66 U/L (17-59); Bilirubin,Total 0.5 mg/dL (0.2-1.3); Blood Urea Nitrogen 70 mg/dL (9-20); Calcium 8.8 mg/dL (8.4-10.2); Carbon Dioxide > 40 mmol/L (22-30); Chloride 86 mmol/L (98-107); Estimated CRCL calculation 14 ml/min; Estimated Glomerular Filt Rate 10; Glucose 322 mg/dL (75-110); Magnesium 1.8 mg/dL (1.6-2.3); Potassium 3.3 mmol/L (3.4-5.0); Sodium 136 mmol/L (137-145)
[2019-11-19] MEDS: LORazepam INJ (*CRX) 2 MG/ML VIAL (06:14)
[2019-11-19 06:25] LABS: Glucose Point of Care 324 (65-105)
--- NOTE | 2019-11-19 06:38 | PM.EVENT ---
Event Note Event Note Event Note: Rapid Response Note This is a 39 year old male who is known to have ESRD on PD and who was admitted yesterday for hypertensive urgency and nursing staff found the patient seizing this morning around 6:02 am. Rapid Response was called and on my arrival to bedside the patient was exhibiting tonic-clonic generalized seizure activity, diaphoretic, grinding his teeth, and saturating in the mid 80s. The patient was placed on supplemental oxygen and Ativan 2 mg IV x 1 was administered. He stopped seizing shortly afterwards. I obtained a STAT CT brain. The patient will also be loaded with IV Depacon. I have consulted Neurology, Dr. Pritchard. Seizure precautions. Close monitoring. I have discussed the case in detail with the daytime provider today who will be taking care of him.
[2019-11-19 06:51] LABS: Phosphorus 4.3 mg/dL (2.5-4.5)
[2019-11-19 07:15] LABS: Free T4 Free Thyroxine Reflex 1.81 ng/dL (0.78-2.19)
[2019-11-19 07:58] LABS: Total Triiodothyronine (T3) 0.95 NG/ML (0.97-1.69)
[2019-11-19 08:28] LABS: Glucose Point of Care 400 (65-105)
[2019-11-19] MEDS: TERAZOSIN HCL 1 MG CAPSULE 2 MG PO ×2 (08:38→18:04)
[2019-11-19] MEDS: METOPROLOL TARTRATE 50 MG TAB PO ×2 (08:38→18:04)
[2019-11-19] MEDS: amLODIPine BESYLATE 5 MG TABLET 10 MG PO (08:39)
[2019-11-19] MEDS: hydrALAZINE HCL 50 MG TABLET PO ×2 (08:39→18:05)
[2019-11-19] MEDS: ESCITALOPRAM OXALATE 10 MG TABLET 20 MG PO (08:39)
[2019-11-19] MEDS: IRBESARTAN 150 MG TABLET 300 MG PO (08:39)
[2019-11-19] MEDS: INSULIN ASPART (*BKC) 100 UNITS/ML SUB-Q ×2 (08:40→12:05)
--- NOTE | 2019-11-19 08:42 | PC.NURSE ---
0601-Josselyn, CCT arrived to room to check Pt's blood sugar level per Dr. Hobbs's request. Upon CCTs arrival, Pt noted to be seizing. 0602-Rapid response called. Pt noted to be postictal upon arrival and noted to be grinding his teeth, LS-coarse, O2 sats 73% on RA. Pt placed on 5L NC with O2 sats increasing to 95-98%. Pt orally and endoesophageal suctioned. BP-200/91, HR-151 bmp, sinus tachycardia, blood sugar-324. Dr. Hobbs ordered 2mg IVP ativan x1 dose stat. Medication given as ordered. Stat brain CT w/o ordered. 0620-Pt's family called and updated with Pt's condition. 0625-Dr. Hobbs returned to bedside to assess Pt. 0650-Neurology consult called to exchange. Report and Pt care handed off to GISELLE Allan.
[2019-11-19 11:44] LABS: Glucose Point of Care 249 (65-105)
--- NOTE | 2019-11-19 11:52 | WPDNEURCNPN ---
Assessment and Plan Assessment and plan (1) Hyponatremia: Code(s): E87.1 - Hypo-osmolality and hyponatremia Status: Acute (2) End stage renal disease on dialysis: Code(s): N18.6 - End stage renal disease; Z99.2 - Dependence on renal dialysis Status: Chronic (3) Seizures due to metabolic disorder: Code(s): R56.9 - Unspecified convulsions; E88.9 - Metabolic disorder, unspecified Status: Acute Additional Plan considering that after the admission he was found to be seizing in the morning around 6:02 a.m. and was observed to have tonic clonic activity and was started on IV Depacon after the telephone conversation Consult date: 11/19/19 Time Seen: 11:15 HPI: Ari Zuniga is a 39 year old male has been admitted to the hospital with the ongoing diagnosis of 1. End-stage renal disease with peritoneal dialysis at home on nightly basis 2. Type 1 diabetes mellitus since the age of 10 years and 3. History of being on the list for the renal transplant as well as pancreas transplant. Patient reportedly came to the hospital with the complaint of nausea vomiting diarrhea generalized fatigue he was documented to have anion gap of 9 blood sugar of 500 sodium of 124 creatinine of 6.7 with BUN 69 GFR 14 he is under the care of juice packaging machines setter he received the bolus of IV fluids that is lactated Ringer's lactate in the emergency room no insulin was seen to have high blood pressure and did receive Reglan IV potassium oral potassium and IV labetalol Review of Systems Review of Systems: All systems reviewed & are unremarkable except as noted in HPI and below PMFSH Past Medical History Medical History (Updated 11/19/19 @ 11:59 by Gilles Pritchard MD) Anxiety Depression End stage renal disease End stage renal disease on dialysis peritoneal dialysis Hypertension Migraines Type 1 diabetes diagnosis at the age of 10 and has an insulin pump Surgical History Surgical History Presence of peritoneal dialysis catheter Previous back surgery Family History Family History (Updated 11/18/19 @ 15:38 by Sanjana Canas RN) Mother Diabetes mellitus Cerebrovascular accident Father Hypertension Social History Social History (Updated 11/18/19 @ 14:45 by Savi Oleary NP) Social History: the patient lives with his fiancee. He is disabled. The patient stated that he is on a transplant list for a kidney as well as pancreas. He has no biological children but is fiance has 1 child that he is raising. The patient is a lifelong nonsmoker. He denies any alcohol marijuana or illicit drug use. His fiancee is the durable power family law attorney for healthcare. He desires to be a full code. Smoking status: Never smoker Alcohol intake: never Substance use: never Substance use type: does not use Living arrangements: with family Occupation/Education: other Gender identity (if verbalized by the patient): Male Spiritual care concerns: No Meds Home Medications and Allergies Home Medications Medication Instructions Recorded Confirmed Type albuterol sulfate [Ventolin HFA] 2 puff INHALATION Q6H PRN 11/04/19 11/18/19 History alprazolam 0.5 mg PO BID PRN 11/04/19 11/18/19 History amlodipine 10 mg PO DAILY 11/04/19 11/18/19 History ergocalciferol (vitamin D2) 50,000 mcg PO WEEKLY 11/04/19 11/18/19 History [Vitamin D2] escitalopram oxalate 20 mg PO DAILY 11/04/19 11/18/19 History hydralazine 50 mg PO BID 11/04/19 11/18/19 History insulin lispro [Humalog U-100 See Rx Instructions .ROUTE .COMPLEX 11/04/19 11/18/19 History Insulin] irbesartan 300 mg PO DAILY 11/04/19 11/18/19 History metoprolol tartrate 50 mg PO BID 11/04/19 11/18/19 History terazosin 2 mg PO BID 11/04/19 11/18/19 History tramadol 50 mg PO BID PRN 11/04/19 11/18/19 History Allergies Allergy/AdvReac Type Severity Reaction Status Date / Time fluorescein Allergy Severe HIVES, BP Verified
[2019-11-19] MEDS: ALPRAZolam (*CRX) 0.5 MG TABLET PO (12:05)
--- NOTE | 2019-11-19 14:04 | PM.CNNEP ---
Assessment and Plan Assessment and plan (1) End stage renal disease: Code(s): N18.6 - End stage renal disease Status: Chronic Assessment and Plan: continue CCPD while hospitalized follow electroltyes, volume status, and clearance (2) Seizure disorder: Code(s): G40.909 - Epilepsy, unspecified, not intractable, without status epilepticus Status: Acute Assessment and Plan: etiology?? Neurology evaluating CT of head negative (3) Hypertension: Code(s): I10 - Essential (primary) hypertension Status: Chronic Assessment and Plan: quite elevated on admission doing better at this time (4) Hyponatremia: Code(s): E87.1 - Hypo-osmolality and hyponatremia Status: Acute Assessment and Plan: doing better suspect admission value was pseudohyponatremia given his elevated blood sugar follow trend (5) Hypokalemia: Code(s): E87.6 - Hypokalemia Status: Acute Assessment and Plan: due to poor intake, hyperglycemia, and dialysis replete as needed check magnesium (6) Hyperglycemia: Code(s): R73.9 - Hyperglycemia, unspecified Status: Acute Assessment and Plan: due to inability to manage insulin pump follow accuchecks on SSI Greater than 20 minutes was spent in detail discussion with the patient as well as his significant other at bedside with regard to the above medical issues and problems including his nausea/vomiting (suspected gastroparesis) and his recent seizure earlier today and ongoing neurological evaluation/follow-up. Will continue to follow. History of Present Illness Reason for Consult Consult date: 11/19/19 Reason for consult: end stage renal disease Chief Complaint Chief complaint: Severe Hyperglycemia/HTN URGENCY ESRD ON DIALYSIS History of Present Illness Narrative: The patient is a 39-year-old male with a past medical history as outlined below who presented to [facility] Emergency room with complaints of persistent nausea + vomiting and associated fatigue. The patient has had several ER visits to [facility] Emergency room for the same symptoms but usually they improve with supportive measures in the form of IV fluids, IV antiemetics, IV Reglan...etc. However, this time, he also noted significant hyperglycemia as he has been unable to manage his insulin pump given the symptoms. He denied any other subjective symptoms with regard to fevers, chills, palpitations, dizziness, lightheadedness, diarrhea, shortness of breath, or chest pain. Workup and evaluation emergency room demonstrated the patient to be quite hypertensive (presumably due to his inability to take his blood pressure medications) with routine blood test demonstrated labs consistent with his known history of end-stage renal disease but was significant for hyponatremia, hypokalemia, and significant hyperglycemia. He was given a combination of IV potassium as well as IV antihypertensives and was subsequent admitted to the hospital for further evaluation and therapy. Since admission, he received peritoneal dialysis overnight but he apparently had a seizure earlier this morning that responded to IV Ativan. He was started on IV Depakote with Neurology consultation and a CT scan of his head was done which demonstrated no acute inter cranial pathology. Renal consultation was requested due to his end-stage renal disease. The patient is quite familiar to me as I take care of his end-stage renal disease needs. He currently does peritoneal dialysis every evening via [facility] under my care. He was initiated on renal replacement therapy about a year ago with hemodialysis prior to transitioning over to peritoneal dialysis. He is currently being evaluated for both a kidney and pancreas transplant given his type 1 diabetes and his end-stage renal disease. The etiology of his kidney disease is likely du
[2019-11-19] MEDS: VALPROIC ACID INJ 500 MG in DEXTROSE 5% 100 ML 100 MG IVPB ×2 (14:57→21:06)
[2019-11-19] MEDS: traMADol HCL (*CRX) 50 MG TABLET PO (14:57)
[2019-11-19 16:48] LABS: Glucose Point of Care 159 (65-105)
--- NOTE | 2019-11-19 17:55 | PM.IMPN ---
Progress Note: A&P Assessment and Plan (1) Hypertensive urgency: Code(s): I16.0 - Hypertensive urgency Status: Acute Assessment and Plan: Patient was given a dose of labetalol in the emergency room. I did order some p.r.n. hydralazine. patient received his usual home medications this a.m. including ARB, beta-daria, hydralazine, amlodipine, and terazosin blood pressures come down nicely (2) Hypokalemia: Code(s): E87.6 - Hypokalemia Status: Acute Assessment and Plan: Patient is being supplement with potassium. So will go ahead and start him on some insulin. K 3.3 this a.m. (3) Anxiety: Code(s): F41.9 - Anxiety disorder, unspecified Status: Chronic Assessment and Plan: Patient is on Lexapro and alprazolam at home will continue with his home medications. (4) Depression: Code(s): F32.9 - Major depressive disorder, single episode, unspecified Status: Chronic Assessment and Plan: Continue with his home medications. (5) End stage renal disease on dialysis: Code(s): N18.6 - End stage renal disease; Z99.2 - Dependence on renal dialysis Status: Chronic Assessment and Plan: The patient sees Dr. Carmichael. He has peritoneal dialysis. seen by nephrology (6) Type 1 diabetes: Code(s): E10.9 - Type 1 diabetes mellitus without complications Status: Chronic Assessment and Plan: I will check his A1c. The patient has an insulin pump but feels too ill to be able to manage his blood sugars at this time. Will do a sliding scale insulin. Patient has Humalog and his insulin pump and has a basal rate. He stated that he would increase his basal rate if he were going to manage it but he would prefer to take his pump off at this time. His blood sugars of slowly fallen throughout the day (7) Hyponatremia: Code(s): E87.1 - Hypo-osmolality and hyponatremia Status: Acute Assessment and Plan: Dr. Carmichael has been consulted. Patient had nausea vomiting and diarrhea earlier. The patient could be dehydrated. He was given at least to 500 cc boluses of LR in the emergency room. at least part of the low sodium was pseudo hyponatremia from the elevated blood sugar (8) Seizure disorder: Code(s): G40.909 - Epilepsy, unspecified, not intractable, without status epilepticus Status: Acute Assessment and Plan: probably multifactorial, electrolyte abnormalities, hyperglycemia, and hypertension. CT negative. Continue antiseizure medication and neurology following Subjective Date/time seen: 11/19/19 17:55 Interval history: date of visit 11/18. 39-year-old type 1 diabetic with end-stage renal disease on peritoneal dialysis presented with elevated blood sugar, nausea vomiting diarrhea, and elevated blood pressure. Today early had grand mal seizure, feels slightly better at present time Exam Narrative: Exam Narrative: blood pressure 138/62 pulse is 92 saturating 93% on 2 L afebrile pupils equal reactive to light sclera anicteric lungs clear CV regular rate rhythm abdomen is soft nontender bowel sounds normal active Neuro alert coherent with no focal deficits Objective Data Vital Signs Vital Signs: Vital Signs - 24 hr 11/18/19 18:06 11/18/19 18:35 11/18/19 20:00 Temperature 36.3 C L Pulse Rate 111 H 114 H Respiratory Rate 20 Blood Pressure 197/97 H 194/91 H Pulse Oximetry 97 11/18/19 21:04 11/18/19 21:42 11/18/19 23:49 Temperature 36.2 C L Pulse Rate 118 H 106 H 109 H Respiratory Rate 16 Blood Pressure 214/114 H Pulse Oximetry 96 11/19/19 00:00 11/19/19 01:14 11/19/19 01:41 Temperature Pulse Rate 108 H 116 H 109 H Respiratory Rate 16 Blood Pressure Pulse Oximetry 96 11/19/19 04:00 11/19/19 04:46 11/19/19 06:00 Temperature 37.0 C Pulse Rate 114 H 118 H 110 H Respiratory Rate 16 Blood Pressure 188/102 H Pulse Oxim
[2019-11-19 20:04] LABS: Glucose Point of Care 276 (65-105)
[2019-11-20] VITALS (23 sets, daily range): BP systolic 95–198; BP diastolic 56–108; PULSE 74–107; RESP 12–24; TEMP 36–36.7; O2SAT 95–99
[2019-11-20 03:52] LABS: Amphetamine Screen Urine Negative (Negative); Barbiturate Screen Urine Negative (Negative); Benzodiazepines Screen Urine Positive (Negative); Cannabinoid Screen Urine Negative (Negative); Cocaine Screen Urine Negative (Negative); Methadone Screen Urine Negative (Negative); Opiate Screen Urine Negative (Negative); Phencyclidine Screen Urine Negative (Negative)
[2019-11-20 05:15] LABS: Basophils Percent Auto 0.1 % (0.2-1.2); Eosinophils Percent Auto 0.1 % (0-4.4); Hemoglobin 13.7 g/dL (14.0-18.0); Immature Granulocyte Absolute 0.05 K/mm3 (0.00-0.031); Immature Granulocyte Percent A 0.3 % (0-0.5); Lymphocytes Absolute Auto 0.88 K/mm3 (0.9-3.2); Lymphocytes Percent Auto 6.2 % (18.3-44.2); Mean Corpuscular HGB Conc 33.4 g/dl (32-36); Mean Corpuscular Hemoglobin 29.1 pg (26-34); Mean Corpuscular Volume 87.2 fl (80-100); Mean Platelet Volume 10.2 fl (7.4-10.4); Monocytes Percent Auto 7.3 % (2.6-8.5); Neutrophils Absolute Auto 12.3 K/mm3 (1.3-6.7); Platelet Count Result 230 k/mm3 (150-375); White Blood Count 14.3 K/mm3 (4.5-10.0)
[2019-11-20 05:28] LABS: Anion Gap 5 mmol/L (8-16); Blood Urea Nitrogen 64 mg/dL (9-20); Calcium 7.9 mg/dL (8.4-10.2); Carbon Dioxide 39 mmol/L (22-30); Chloride 86 mmol/L (98-107); Estimated CRCL calculation 12 ml/min; Estimated Glomerular Filt Rate 9; Glucose 463 mg/dL (75-110); Potassium 3.1 mmol/L (3.4-5.0); Sodium 130 mmol/L (137-145)
[2019-11-20] MEDS: VALPROIC ACID INJ 500 MG in DEXTROSE 5% 100 ML 100 MG IVPB ×3 (05:40→21:12)
[2019-11-20 08:27] LABS: Glucose Point of Care 450 (65-105)
[2019-11-20] MEDS: INSULIN GLARGINE (*BKC) 100 UNITS/ML 25 UNITS SUB-Q (09:30)
[2019-11-20] MEDS: INSULIN ASPART (*BKC) 100 UNITS/ML SUB-Q ×3 (09:30→18:38)
[2019-11-20] MEDS: amLODIPine BESYLATE 5 MG TABLET 10 MG PO (09:37)
[2019-11-20] MEDS: ESCITALOPRAM OXALATE 10 MG TABLET 20 MG PO (09:37)
[2019-11-20] MEDS: hydrALAZINE HCL 50 MG TABLET PO ×2 (09:37→18:33)
[2019-11-20] MEDS: METOPROLOL TARTRATE 50 MG TAB PO ×2 (09:37→18:33)
[2019-11-20] MEDS: IRBESARTAN 150 MG TABLET 300 MG PO (09:38)
[2019-11-20] MEDS: TERAZOSIN HCL 1 MG CAPSULE 2 MG PO ×2 (09:38→18:33)
--- NOTE | 2019-11-20 10:58 | WPDGICN ---
Assessment and Plan Assessment and plan (1) Nausea and vomiting in adult: Code(s): R11.2 - Nausea with vomiting, unspecified Status: Acute Assessment and Plan: improved but also persistent hiccups now will proceed with egd he never had gastric emptying study, probably can do one as outpatient to assess if dysmotility (2) Hiccups: Code(s): R06.6 - Hiccough Status: Acute Assessment and Plan: egd, consider bx (3) Seizures due to metabolic disorder: Code(s): R56.9 - Unspecified convulsions; E88.9 - Metabolic disorder, unspecified Status: Acute Assessment and Plan: probably multifactorial neurology on board and he is on medication now (4) End stage renal disease on dialysis: Code(s): N18.6 - End stage renal disease; Z99.2 - Dependence on renal dialysis Status: Chronic Assessment and Plan: on PD (5) Hypertension: Code(s): I10 - Essential (primary) hypertension Status: Chronic Assessment and Plan: better controlled, he came in with htn urgency (6) Severe hyperglycemia due to diabetes mellitus: Code(s): E11.65 - Type 2 diabetes mellitus with hyperglycemia Status: Acute Assessment and Plan: had several er visits, on insulin pump GI Consult Note Consult date/time: 11/20/19 10:58 Reason for consult: nausea, vomiting and diarrhea HPI: Ari Zuniga is a 39 year old male with history of end-stage renal disease about 1 year ago on hemodialysis then transitioned to peritoneal dialysis for last few months, diabetes type 1 that was diagnosed when he was about 12 years old on insulin pump. He came to the hospital with few days of nausea, vomiting and diarrhea. He was feeling too ill to be able to manage his insulin pump, on admission had anion gap of 9 and his blood sugar was greater than 500. Now diarrhea almost gone, nausea improved but he now has hiccup. Never had scopes. He also had an episode of seizure and now is seeing by neurologist (on admission had HTN urgency, hyponatremia, uncontrolled DM). CT head negative. Review of Systems Constitutional: Constitutional: Denies headache(s) and Denies weakness Eyes: Eyes: Denies blurry vision ENT: Reports Normal hearing present, Denies headache(s) and Denies neck pain Cardiovascular: Cardiovascular: Denies chest pain and Denies dyspnea Respiratory: Respiratory: Denies dyspnea Gastrointestinal: Gastrointestinal: Reports nausea and Reports vomiting Genitourinary: Genitourinary: Denies dysuria Musculoskeletal: Musculoskeletal: Denies neck pain Integumentary/Breasts: Skin/Breast: Denies dry skin Neurologic: Reports Normal hearing present and Denies weakness Comments: one episode of seizure Psychiatric: Psychiatric: Reports anxiety Endocrine: Endocrine: Denies change in body appearance Hematologic/Lymphatic: Hematologic/Lymphatic: Denies easy bleeding Allergic/Immunologic: Allergic/Immunologic: Denies urticaria PMFSH Past Medical History Medical History (Updated 11/20/19 @ 11:03 by Wilber Pop MD) Anxiety Depression End stage renal disease End stage renal disease on dialysis peritoneal dialysis Hiccups Hypertension Migraines Nausea and vomiting in adult Type 1 diabetes diagnosis at the age of 10 and has an insulin pump Surgical History Surgical History Presence of peritoneal dialysis catheter Previous back surgery Family History Family History (Updated 11/18/19 @ 15:38 by Sanjana Canas RN) Mother Diabetes mellitus Cerebrovascular accident Father Hypertension Social History Social History (Updated 11/18/19 @ 14:45 by Savi Oleary NP) Social History: the patient lives with his fiancee. He is disabled. The patient stated that he is on a transplant list for a kidney as well as pancreas. He has no biological children but is fiance has 1 child that he is raising.
[2019-11-20 11:51] LABS: Glucose Point of Care 390 (65-105)
[2019-11-20 12:45] LABS: Glucose Point of Care 331 (65-105)
[2019-11-20] MEDS: SODIUM CHLORIDE 0.9% IV 500 ML 10 ML IV CONT (12:46)
--- NOTE | 2019-11-20 12:46 | WPDANESEPPF ---
Anes - Initial Pre Proc Eval Procedure: Operation Date: 11/20/19 14:45 Proposed Procedures p Esophagogastroduodenoscopy - Wilber Pop MD Date/Time: 11/20/19 12:46 Surgeon: Sandeep Menon MD Pre Op Diagnosis: Severe Hyperglycemia/HTN URGENCY ESRD ON DIALYSIS Patient Data Age: 39 Gender: M Height: 5 ft 11 in Weight: 64.1 kg Last Vital Signs Temp 97.4 F L 11/20/19 12:35 Pulse 85 11/20/19 12:35 Resp 20 11/20/19 12:35 BP 152/81 H 11/20/19 12:35 Pulse Ox 99 11/20/19 12:35 Allergies Allergy/AdvReac Type Severity Reaction Status Date / Time fluorescein Allergy Severe HIVES, BP Verified 11/20/19 12:17 DROPPED, SWELLING TONGUE Penicillins Allergy Unknown Unknown Verified 11/20/19 12:17 Sulfa (Sulfonamide Allergy Unknown Unknown Verified 11/20/19 12:17 Antibiotics) chlorpromazine Allergy Rash Verified 11/20/19 12:17 [From Thorazine] Home Medications Medication Instructions Recorded Confirmed Type albuterol sulfate [Ventolin HFA] 2 puff INHALATION Q6H PRN 11/04/19 11/18/19 History alprazolam 0.5 mg PO BID PRN 11/04/19 11/18/19 History amlodipine 10 mg PO DAILY 11/04/19 11/18/19 History ergocalciferol (vitamin D2) 50,000 mcg PO WEEKLY 11/04/19 11/18/19 History [Vitamin D2] escitalopram oxalate 20 mg PO DAILY 11/04/19 11/18/19 History hydralazine 50 mg PO BID 11/04/19 11/18/19 History insulin lispro [Humalog U-100 See Rx Instructions .ROUTE .COMPLEX 11/04/19 11/18/19 History Insulin] irbesartan 300 mg PO DAILY 11/04/19 11/18/19 History metoprolol tartrate 50 mg PO BID 11/04/19 11/18/19 History terazosin 2 mg PO BID 11/04/19 11/18/19 History tramadol 50 mg PO BID PRN 11/04/19 11/18/19 History Laboratory Tests 11/19/19 11/19/1920 16:29 20:01 03:23 WBC RBC Hgb Hct MCV MCH MCHC RDW Plt Count MPV Immature Gran % (Auto) Neut % (Auto) Lymph % (Auto) [place] % (Auto) Eos % (Auto) Baso % (Auto) Lymph # (Auto) [place] # (Auto) Eos # (Auto) Baso # (Auto) Abs Immat Gran (auto) Absolute Neuts (auto) Absolute Nucleated RBC Nucleated RBC % Sodium Potassium Chloride Carbon Dioxide Anion Gap BUN Creatinine Estim Creat Clear Calc Estimated GFR Glucose POC Capillary Glucose 159 mg/dl H mg/dl 276 mg/dl H mg/dl (65-105) (65-105) Calcium Urine Opiates Screen Negative (Negative) Urine Methadone Screen Negative (Negative) Ur Barbiturates Screen Negative (Negative) Ur Phencyclidine Scrn Negative (Negative) Ur Amphetamine Screen Negative (Negative) U Benzodiazepines Scrn Positive A (Negative) Urine Cocaine Screen Negative (Negative) U Cannabinoids Screen Negative (Negative) 11/20/19 11/20/19 11/20/19 04:54 04:55 08:25 WBC 14.3 K/mm3 H K/mm3 (4.5-10.0) RBC 4.70 M/mm3 M/mm3 (4.6-6.20) Hgb 13.7 g/dL L g/dL (14.0-18.0) Hct 41.0 % L % (42.0-52.0) MCV 87.2 fl fl (80-100) MCH 29.1 pg pg (26-34) MCHC 33.4 g/dl g/dl (32-36) RDW 13.0 % % (11.5-14.5) Plt Count 230 k/mm3 k/mm3 (150-375) MPV 10.2 fl fl (7.4-10.4) Immature Gran % (Auto) 0.3 % % (0-0.5) Neut % (Auto) 86.0 % H % (45.5-73.1) Lymph % (Auto) 6.2 % L % (18.3-44.2) [place] % (Auto) 7.3 % % (2.6-8.5) Eos % (Auto) 0.1 % % (0-4.4) Baso % (Auto) 0.1 % L % (0.2-1.2) Lymph # (Auto) 0.88 K/mm
[2019-11-20 13:39] LABS: Glucose Point of Care 249 (65-105)
[2019-11-20 16:09] LABS: Glucose Point of Care 217 (65-105)
--- NOTE | 2019-11-20 17:39 | P.PNNP_ITS ---
Progress Note: A&P Assessment and Plan (1) End stage renal disease: Code(s): N18.6 - End stage renal disease Status: Chronic Assessment and Plan: * continue CCPD while hospitalized * follow electroltyes, volume status, and clearance * replete K+ PRN (2) Seizure disorder: Code(s): G40.909 - Epilepsy, unspecified, not intractable, without status epilepticus Status: Acute Assessment and Plan: * etiology?? * Neurology evaluating * CT of head negative (3) Hypertension: Code(s): I10 - Essential (primary) hypertension Status: Chronic Assessment and Plan: * quite elevated on admission * doing better at this time (4) Esophagitis with gastritis: Code(s): K29.70 - Gastritis, unspecified, without bleeding; K20.9 - Esophagitis, unspecified Status: Acute Assessment and Plan: * as noted by EGD * Gastroenterology following * etiology of hiccups? * follow-up on biopsies (5) Hyponatremia: Code(s): E87.1 - Hypo-osmolality and hyponatremia Status: Acute Assessment and Plan: * doing better * suspect admission value was pseudohyponatremia given his elevated blood sugar * follow trend (6) Hypokalemia: Code(s): E87.6 - Hypokalemia Status: Acute Assessment and Plan: * due to poor intake, hyperglycemia, and dialysis * replete as needed * check magnesium (7) Hyperglycemia: Code(s): R73.9 - Hyperglycemia, unspecified Status: Acute Assessment and Plan: * due to inability to manage insulin pump * follow accuchecks * on SSI Will continue to follow. Subjective Date/time seen: 11/20/19 17:39 Tolerated CCPD overnight without any issues or problems; see by Gastroenterology earlier today and now s/p EGD with findings noted; still with on/off nausea complicated by hiccups; Exam Narrative: Exam Narrative: General: WD/WN male in NAD Heart: normal S1 and S2; no rub Lungs: clear to auscultation Abdomen: soft, nontender, nondistended, positive bowel sounds Extremities: no cyanosis or clubbing; no edema Skin: warm and dry Objective Data Vital Signs Vital Signs: Vital Signs Temp Pulse Resp BP Pulse Ox 11/20/19 16:00 36.2 C L 89 12 149/77 H 95 11/20/19 14:31 97 11/20/19 14:00 82 11/20/19 13:51 105 H 11/20/19 13:35 80 21 H 104/67 98 11/20/19 13:25 76 21 H 107/66 97 11/20/19 13:15 74 24 H 110/66 95 11/20/19 12:35 36.3 C L 85 20 152/81 H 99 11/20/19 11:54 36.0 C L 90 14 169/89 H 98 11/20/19 10:00 107 H 11/20/19 09:37 107 H 11/20/19 08:00 36.4 C 105 H 20 198/108 H 99 11/20/19 06:00 103 H 11/20/19 04:00 36.4 C 98 18 174/92 H 96 11/20/19 02:00 88 11/20/19 00:00 36.1 C L 96 18 152/78 H 96 11/19/19 22:59 98 11/19/19 22:00 96 11/19/19 20:20 36.9 C 98 20 141/69 H 98 11/19/19 20:00 97 20 98 11/19/19 18:06 36.3 C L 98 20 137/63 11/19/19 18:04 106 H 11/19/19 18:00 108 H Intake/Output Intake/Output: Intake & Output 11/17/19 11/18/19 11/19/19 11/20/19 23:59 23:59 23:59 23:59 Intake Total 1655 310 505 Output
--- NOTE | 2019-11-20 17:39 | PM.PNNEP ---
Progress Note: A&P Assessment and Plan (1) End stage renal disease: Code(s): N18.6 - End stage renal disease Status: Chronic Assessment and Plan: continue CCPD while hospitalized follow electroltyes, volume status, and clearance replete K+ PRN (2) Seizure disorder: Code(s): G40.909 - Epilepsy, unspecified, not intractable, without status epilepticus Status: Acute Assessment and Plan: etiology?? Neurology evaluating CT of head negative (3) Hypertension: Code(s): I10 - Essential (primary) hypertension Status: Chronic Assessment and Plan: quite elevated on admission doing better at this time (4) Esophagitis with gastritis: Code(s): K29.70 - Gastritis, unspecified, without bleeding; K20.9 - Esophagitis, unspecified Status: Acute Assessment and Plan: as noted by EGD Gastroenterology following etiology of hiccups? follow-up on biopsies (5) Hyponatremia: Code(s): E87.1 - Hypo-osmolality and hyponatremia Status: Acute Assessment and Plan: doing better suspect admission value was pseudohyponatremia given his elevated blood sugar follow trend (6) Hypokalemia: Code(s): E87.6 - Hypokalemia Status: Acute Assessment and Plan: due to poor intake, hyperglycemia, and dialysis replete as needed check magnesium (7) Hyperglycemia: Code(s): R73.9 - Hyperglycemia, unspecified Status: Acute Assessment and Plan: due to inability to manage insulin pump follow accuchecks on SSI Will continue to follow. Subjective Date/time seen: 11/20/19 17:39 Tolerated CCPD overnight without any issues or problems; see by Gastroenterology earlier today and now s/p EGD with findings noted; still with on/off nausea complicated by hiccups; Exam Narrative: Exam Narrative: General: WD/WN male in NAD Heart: normal S1 and S2; no rub Lungs: clear to auscultation Abdomen: soft, nontender, nondistended, positive bowel sounds Extremities: no cyanosis or clubbing; no edema Skin: warm and dry Objective Data Vital Signs Vital Signs: Vital Signs Temp Pulse Resp BP Pulse Ox 11/20/19 16:00 36.2 C L 89 12 149/77 H 95 11/20/19 14:31 97 09/28/20 14:00 82 11/20/19 13:51 105 H 11/20/19 13:35 80 21 H 104/67 98 11/20/19 13:25 76 21 H 107/66 97 11/20/19 13:15 74 24 H 110/66 95 11/20/19 12:35 36.3 C L 85 20 152/81 H 99 11/20/19 11:54 36.0 C L 90 14 169/89 H 98 11/20/19 10:00 107 H 11/20/19 09:37 107 H 11/20/19 08:00 36.4 C 105 H 20 198/108 H 99 11/20/19 06:00 103 H 11/20/19 04:00 36.4 C 98 18 174/92 H 96 11/20/19 02:00 88 11/20/19 00:00 36.1 C L 96 18 152/78 H 96 11/19/19 22:59 98 11/19/19 22:00 96 11/19/19 20:20 36.9 C 98 20 141/69 H 98 11/19/19 20:00 97 20 98 11/19/19 18:06 36.3 C L 98 20 137/63 11/19/19 18:04 106 H 11/19/19 18:00 108 H Intake/Output Intake/Output: Intake & Output 11/17/19 11/18/19 11/19/19 11/20/19 23:59 23:59 23:59 23:59 Intake Total 1655 310 505 Output Total 695 333 6619 Balance 9089 -807 -928 Meds/Results Medications: Active Medications Generic Name Dose Route Start Last Admin Trade Name Freq PRN Reason Stop Dose Admin Albuterol 2 puff 11/18/19 18:38 Proventil Hfa INHALATION Q6H PRN Wheezing Alprazolam 0.5 mg 11/18/19 18:38 11/19/19 12:05 Xanax PO 0.5 mg BID PRN Administration Anxiety Amlodipine Besylate 10 mg 11/19/19 09:00 11/20/19 09:37 Norvasc PO 10 mg DAILY [facility] Administration Benzocaine 1 lozenge 11/19/19 15:36 Chloraseptic Lozenge PO PRN PRN Sore Throat Dextrose 12.5 gm 11/18/19 14:32 Dextrose 50% Syringe IV PUSH PRN PRN Hypoglycemia Protocol Ergocalciferol 50,000 unit 11/24/19 09:00 Drisdol PO
[2019-11-20] MEDS: SUCRALFATE SUSP 100 MG/ML 10 ML UDC 1000 MG PO ×2 (18:32→21:12)
[2019-11-20 20:47] LABS: Glucose Point of Care 45 (65-105)
[2019-11-20 21:05] LABS: Glucose Point of Care 35 (65-105)
[2019-11-20] MEDS: ONDANSETRON INJ 4 MG/2 ML VIAL IV PUSH (21:12)
[2019-11-20] MEDS: PANTOPRAZOLE SODIUM IV 40 MG VIAL IV PUSH (21:12)
[2019-11-20 21:28] LABS: Glucose Point of Care 144 (65-105)
--- NOTE | 2019-11-20 22:36 | P.PNIM_ITS ---
Progress Note: A&P Assessment and Plan (1) Hypertensive urgency: Code(s): I16.0 - Hypertensive urgency Status: Acute Assessment and Plan: Patient was given a dose of labetalol in the emergency room. I did order some p.r.n. hydralazine. patient receiving his usual home medications . including ARB, beta-adria, hydralazine, amlodipine, and terazosin blood pressures come down nicely (2) Hypokalemia: Code(s): E87.6 - Hypokalemia Status: Acute Assessment and Plan: Patient is being supplement with potassium. . K 3.1 this a.m. (3) Anxiety: Code(s): F41.9 - Anxiety disorder, unspecified Status: Chronic Assessment and Plan: Patient is on Lexapro and alprazolam at home will continue with his home medications. (4) Depression: Code(s): F32.9 - Major depressive disorder, single episode, unspecified Status: Chronic Assessment and Plan: Continue with his home medications. (5) End stage renal disease on dialysis: Code(s): N18.6 - End stage renal disease; Z99.2 - Dependence on renal dialysis Status: Chronic Assessment and Plan: The patient sees Dr. Carmichael. He has peritoneal dialysis. seen by nephrology (6) Type 1 diabetes: Code(s): E10.9 - Type 1 diabetes mellitus without complications Status: Chronic Assessment and Plan: his A1c.9.0 The patient has an insulin pump but feels too ill to be able to manage his blood sugars at this time.and he dose not know his basal rate Will do a sliding scale insulin. Gave 25 units of lantus this am with bs >400 again but has slowly fallen throughout the day and after EGD clear liquids so decrease to 15 units 11/20 (7) Hyponatremia: Code(s): E87.1 - Hypo-osmolality and hyponatremia Status: Acute Assessment and Plan: Dr. Carmichael has been consulted. Patient had nausea vomiting and diarrhea earlier. The patient could be dehydrated. He was given at least to 500 cc boluses of LR in the emergency room. at least part of the low sodium was pseudo hyponatremia from the elevated blood sugar. 130 again today with elevated bs (8) Seizure disorder: Code(s): G40.909 - Epilepsy, unspecified, not intractable, without status epilepticus Status: Acute Assessment and Plan: probably multifactorial, electrolyte abnormalities, hyperglycemia, and hypertension. CT negative. Continue antiseizure medication and neurology following (9) Esophagitis with gastritis: Code(s): K29.70 - Gastritis, unspecified, without bleeding; K20.9 - Esophagitis, unspecified Status: Acute Assessment and Plan: found at EGD today , may be source of hiccups. PPI started and clear liquids Subjective Date/time seen: 11/20/19 22:36 Interval history: date of visit 11/19. 39-year-old type 1 diabetic with end- stage renal disease on peritoneal dialysis presented with elevated blood sugar, nausea vomiting diarrhea, and elevated blood pressure. 11/18 early am had grand mal seizure, feels slightly better at present time. Still hiccups and sore throat but overall better Exam Narrative: Exam Narrative: blood pressure 152/84 pulse is 74 saturating 95% on 2 L afebrile pupils equal reactive to light sclera anicteric lungs clear CV regular rate rhythm abdomen is soft nontender bowel sounds normal active Neuro alert coherent with no focal deficits Objective Data Vital Signs Vital Signs: Vital Signs - 24 hr 11/19/19 22:59 11/20/19 00:0
--- NOTE | 2019-11-20 22:46 | PM.IMPN ---
Progress Note: A&P Assessment and Plan (1) Hypertensive urgency: Code(s): I16.0 - Hypertensive urgency Status: Acute Assessment and Plan: Patient was given a dose of labetalol in the emergency room. I did order some p.r.n. hydralazine. patient receiving his usual home medications . including ARB, beta-daria, hydralazine, amlodipine, and terazosin blood pressures come down nicely (2) Hypokalemia: Code(s): E87.6 - Hypokalemia Status: Acute Assessment and Plan: Patient is being supplement with potassium. . K 3.1 this a.m. (3) Anxiety: Code(s): F41.9 - Anxiety disorder, unspecified Status: Chronic Assessment and Plan: Patient is on Lexapro and alprazolam at home will continue with his home medications. (4) Depression: Code(s): F32.9 - Major depressive disorder, single episode, unspecified Status: Chronic Assessment and Plan: Continue with his home medications. (5) End stage renal disease on dialysis: Code(s): N18.6 - End stage renal disease; Z99.2 - Dependence on renal dialysis Status: Chronic Assessment and Plan: The patient sees Dr. Carmichael. He has peritoneal dialysis. seen by nephrology (6) Type 1 diabetes: Code(s): E10.9 - Type 1 diabetes mellitus without complications Status: Chronic Assessment and Plan: his A1c.9.0 The patient has an insulin pump but feels too ill to be able to manage his blood sugars at this time.and he dose not know his basal rate Will do a sliding scale insulin. Gave 25 units of lantus this am with bs >400 again but has slowly fallen throughout the day and after EGD clear liquids so decrease to 15 units 11/20 (7) Hyponatremia: Code(s): E87.1 - Hypo-osmolality and hyponatremia Status: Acute Assessment and Plan: Dr. Carmichael has been consulted. Patient had nausea vomiting and diarrhea earlier. The patient could be dehydrated. He was given at least to 500 cc boluses of LR in the emergency room. at least part of the low sodium was pseudo hyponatremia from the elevated blood sugar. 130 again today with elevated bs (8) Seizure disorder: Code(s): G40.909 - Epilepsy, unspecified, not intractable, without status epilepticus Status: Acute Assessment and Plan: probably multifactorial, electrolyte abnormalities, hyperglycemia, and hypertension. CT negative. Continue antiseizure medication and neurology following (9) Esophagitis with gastritis: Code(s): K29.70 - Gastritis, unspecified, without bleeding; K20.9 - Esophagitis, unspecified Status: Acute Assessment and Plan: found at EGD today , may be source of hiccups. PPI started with carafate and clear liquids Subjective Date/time seen: 11/20/19 22:46 Interval history: date of visit 11/19. 39-year-old type 1 diabetic with end-stage renal disease on peritoneal dialysis presented with elevated blood sugar, nausea vomiting diarrhea, and elevated blood pressure. 11/18 early am had grand mal seizure, feels slightly better at present time. Still hiccups and sore throat but overall better Exam Narrative: Exam Narrative: blood pressure 152/84 pulse is 74 saturating 95% on 2 L afebrile pupils equal reactive to light sclera anicteric lungs clear CV regular rate rhythm abdomen is soft nontender bowel sounds normal active Neuro alert coherent with no focal deficits Objective Data Vital Signs Vital Signs: Vital Signs - 24 hr 11/19/19 22:59 11/20/19 00:00 11/20/19 02:00 Temperature 36.1 C L Pulse Rate 96 88 Respiratory Rate 18 Blood Pressure 152/78 H Pulse Oximetry 98 96 11/20/19 04:00 11/20/19 06:00 11/20/19 08:00 Temperature 36.4 C 36.4 C Pulse Rate 98 103 H 105 H Respiratory Rate 18 20 Blood Pressure 174/92 H 198/108 H Pulse Oximetry 96 99 11/20/19 08:14 11/20/19 09:37 11/20/19 10:00 Temperature 36.3 C L Pulse Rate 9
[2019-11-20 23:27] LABS: Glucose Point of Care 151 (65-105)
[2019-11-21] VITALS (17 sets, daily range): BP systolic 122–146; BP diastolic 61–74; PULSE 72–103; RESP 17–20; TEMP 36.2–36.7; O2SAT 95–99
[2019-11-21] MEDS: VALPROIC ACID INJ 500 MG in DEXTROSE 5% 100 ML 100 MG IVPB ×3 (05:24→21:14)
[2019-11-21] MEDS: SUCRALFATE SUSP 100 MG/ML 10 ML UDC 1000 MG PO ×2 (05:24→12:59)
[2019-11-21 05:32] LABS: Basophils Percent Auto 0.1 % (0.2-1.2); Eosinophils Absolute Auto 0.1 K/mm3 (0-0.3); Eosinophils Percent Auto 0.6 % (0-4.4); Hematocrit 38.7 % (42.0-52.0); Hemoglobin 12.9 g/dL (14.0-18.0); Immature Granulocyte Percent A 0.7 % (0-0.5); Lymphocytes Absolute Auto 0.75 K/mm3 (0.9-3.2); Lymphocytes Percent Auto 5.2 % (18.3-44.2); Mean Corpuscular HGB Conc 33.3 g/dl (32-36); Mean Platelet Volume 9.6 fl (7.4-10.4); Monocytes Absolute Auto 0.9 K/mm3 (0.1-0.6); Monocytes Percent Auto 6.2 % (2.6-8.5); Neutrophils Absolute Auto 12.6 K/mm3 (1.3-6.7); Neutrophils Percent Auto 87.2 % (45.5-73.1); Platelet Count Result 231 k/mm3 (150-375); Red Blood Count 4.45 M/mm3 (4.6-6.20); Red Cell Distribution Width 12.8 % (11.5-14.5); White Blood Count 14.5 K/mm3 (4.5-10.0)
[2019-11-21 05:56] LABS: Anion Gap 5.99999 mmol/L (8-16); Blood Urea Nitrogen 74 mg/dL (9-20); Calcium 7.5 mg/dL (8.4-10.2); Carbon Dioxide > 40 mmol/L (22-30); Chloride 88 mmol/L (98-107); Estimated CRCL calculation 11 ml/min; Estimated Glomerular Filt Rate 8; Glucose 237 mg/dL (75-110); Potassium 3.1 mmol/L (3.4-5.0); Sodium 134 mmol/L (137-145)
[2019-11-21 07:42] LABS: Glucose Point of Care 261 (65-105)
[2019-11-21] MEDS: IRBESARTAN 150 MG TABLET 300 MG PO (10:16)
[2019-11-21] MEDS: METOPROLOL TARTRATE 50 MG TAB PO ×2 (10:16→18:12)
[2019-11-21] MEDS: amLODIPine BESYLATE 5 MG TABLET 10 MG PO (10:17)
[2019-11-21] MEDS: ESCITALOPRAM OXALATE 10 MG TABLET 20 MG PO (10:17)
[2019-11-21] MEDS: hydrALAZINE HCL 50 MG TABLET PO ×2 (10:18→18:14)
[2019-11-21] MEDS: TERAZOSIN HCL 1 MG CAPSULE 2 MG PO ×2 (10:18→18:13)
[2019-11-21] MEDS: PANTOPRAZOLE SODIUM IV 40 MG VIAL IV PUSH ×2 (10:19→21:14)
[2019-11-21] MEDS: INSULIN GLARGINE (*BKC) 100 UNITS/ML 15 UNITS SUB-Q (10:20)
[2019-11-21] MEDS: INSULIN ASPART (*BKC) 100 UNITS/ML SUB-Q (10:22)
[2019-11-21 12:21] LABS: Glucose Point of Care 192 (65-105)
[2019-11-21] MEDS: ALPRAZolam (*CRX) 0.5 MG TABLET PO (13:39)
[2019-11-21 16:21] LABS: Glucose Point of Care 91 (65-105)
--- NOTE | 2019-11-21 16:39 | WPDGIPROGNO ---
Progress Note: A&P Assessment and Plan (1) Esophagitis with gastritis: Code(s): K29.70 - Gastritis, unspecified, without bleeding; K20.9 - Esophagitis, unspecified Status: Acute Assessment and Plan: severe esophagitis, also had small DU without bleeding he will need alf PPI bid, he is eating more and feeling better will discontinue carafate because it is making him feel sick (2) Nausea and vomiting in adult: Code(s): R11.2 - Nausea with vomiting, unspecified Status: Acute Assessment and Plan: improving he may also have dysmotility, probably as outpatient he can have gastric emptying study after resolution of esophagitis antiemetics prn (3) End stage renal disease: Code(s): N18.6 - End stage renal disease Status: Chronic Assessment and Plan: on PD (4) Type 1 diabetes: Code(s): E10.9 - Type 1 diabetes mellitus without complications Status: Chronic (5) Hypertensive urgency: Code(s): I16.0 - Hypertensive urgency Status: Acute Assessment and Plan: improved with medical treatment Subjective Date/time seen: 11/21/19 16:39 Interval history: he thinks that is feeling better but still nauseous, no more diarrhea EGD yesterday with severe esophagitis, also ulcer duodenum noted that carafate is making him more nauseous. Review of Systems Review of Systems: All systems reviewed & are unremarkable except as noted in HPI and below Exam Const: General: comfortable and no acute distress HENMT: General nose exam: Normal nares present Eyes: General: appearance normal, both eyes and all related structures Neck: Neck: no JVD Resp: Auscultation: clear to auscultation bilaterally Cardio: Rate: regular rate Rhythm: regular rhythm GI: Inspection: non-distended GI Palp: Yes Soft to palpation Auscultation: normal bowel sounds Other: PD catheter in place Skin: General skin exam: normal color Neuro: General: gait normal Speech: normal speech Extrem: General: normal to inspection Psych: Mental Status: mental status grossly normal Objective Data Vital Signs Vital Signs: Vital Signs - 24 hr 11/20/19 18:00 11/20/19 18:33 11/20/19 19:59 Temperature 98.0 F Pulse Rate 76 85 75 Respiratory Rate 18 Blood Pressure 95/56 L Pulse Oximetry 99 11/20/19 20:00 11/20/19 22:00 11/20/19 23:36 Temperature 97.7 F Pulse Rate 75 75 81 Respiratory Rate 18 18 Blood Pressure 108/59 L Pulse Oximetry 99 99 11/21/19 00:00 11/21/19 02:00 11/21/19 04:00 Temperature 97.9 F Pulse Rate 78 88 91 Respiratory Rate 18 20 Blood Pressure 144/74 H Pulse Oximetry 99 97 11/21/19 05:39 11/21/19 08:25 11/21/19 08:30 Temperature 98.1 F Pulse Rate 88 93 88 Respiratory Rate 17 Blood Pressure 138/68 Pulse Oximetry 96 11/21/19 10:00 11/21/19 10:16 11/21/19 12:00 Temperature 97.2 F L Pulse Rate 95 103 H 85 Respiratory Rate 18 Blood Pressure 128/61 Pulse Oximetry 96 Intake/Output Intake/Output: Intake & Output 11/18/19 11/19/19 11/20/19 11/21/19 23:59 23:59 23:59 23:59 Intake Total 1655 764 543 4478 Output Total 136 201 5868 3728 Balance 2585 -395 -1012 -2663 Meds/Results Medications: Active Medications Generic Name Dose Route Start Last Admin Trade Name Freq PRN Reason Stop Dose Admin Albuterol 2 puff 11/18/19 18:38 Proventil Hfa INHALATION Q6H PRN Wheezing Alprazolam 0.5 mg 11/18/19 18:38 11/21/19 13:39 Xanax PO 0.5 mg BID PRN Administration Anxiety Amlodipine Besylate 10 mg 11/19/19 09:00 11/21/19 10:17 Norvasc PO 10 mg DAILY [facility] Administration Benzocaine 1 lozenge 11/19/19 15:36 Chloraseptic Lozenge PO PRN PRN Sore Throat Dextrose 12.5 gm 11/18/19 14:32 Dextrose 50% Syringe IV PUSH PRN PRN Hypoglycemia Protocol Ergocalciferol 50,000 unit 11/24/19 09:00 Drisdol PO Fr@0900 [facility]
[2019-11-21 17:00] LABS: Glucose Point of Care 74 (65-105)
--- NOTE | 2019-11-21 17:14 | P.PNNP_ITS ---
Progress Note: A&P Assessment and Plan (1) End stage renal disease: Code(s): N18.6 - End stage renal disease Status: Chronic Assessment and Plan: * continue CCPD while hospitalized * follow electroltyes, volume status, and clearance (2) Hypokalemia: Code(s): E87.6 - Hypokalemia Status: Acute Assessment and Plan: * presumably due to a combination of GI loss, total body store depletion, and dialysis * replete K+ PRN - if this persists, would not be opposed to liberalizing diet * magnesium okay * follow trend (3) Seizure disorder: Code(s): G40.909 - Epilepsy, unspecified, not intractable, without status epilepticus Status: Acute Assessment and Plan: * etiology?? * Neurology evaluating * related to tramadol -- has since been discontinued... * CT of head negative (4) Hypertension: Code(s): I10 - Essential (primary) hypertension Status: Chronic Assessment and Plan: * quite elevated on admission * doing better at this time (5) Esophagitis with gastritis: Code(s): K29.70 - Gastritis, unspecified, without bleeding; K20.9 - Esophagitis, unspecified Status: Acute Assessment and Plan: * as noted by EGD * Gastroenterology following * etiology of hiccups? * follow-up on biopsies * on IV PPI (6) Hyponatremia: Code(s): E87.1 - Hypo-osmolality and hyponatremia Status: Acute Assessment and Plan: * doing better * suspect admission value was pseudohyponatremia given his elevated blood sugar * follow trend (7) Hyperglycemia: Code(s): R73.9 - Hyperglycemia, unspecified Status: Acute Assessment and Plan: * due to inability to manage insulin pump * follow accuchecks * on SSI Will continue to follow. Subjective Date/time seen: 11/21/19 17:14 Appears to be doing better; diet being advanced slowly; still with some mild nausea/vomiting but doing significantly better with current therapy; no acute distress noted. Exam Narrative: Exam Narrative: General: WD/WN male in NAD Heart: normal S1 and S2; no rub Lungs: clear to auscultation Abdomen: soft, nontender, nondistended, positive bowel sounds Extremities: no cyanosis or clubbing; no edema Skin: warm and intact Objective Data Vital Signs Vital Signs: Vital Signs Temp Pulse Resp BP Pulse Ox 11/21/19 16:46 36.3 C L 85 20 146/68 H 95 11/21/19 16:00 90 11/21/19 12:00 36.2 C L 88 18 128/61 96 11/21/19 10:16 103 H 11/21/19 10:00 95 11/21/19 08:30 88 11/21/19 08:25 36.7 C 93 17 138/68 96 11/21/19 05:39 88 11/21/19 04:00 36.6 C 91 20 144/74 H 97 11/21/19 02:00 88 11/21/19 00:00 78 18 99 11/20/19 23:36 36.5 C 81 18 108/59 L 99 11/20/19 22:00 75 11/20/19 20:00 75 18 99 11/20/19 19:59 36.7 C 75 18 95/56 L 99 11/20/19 18:33 85 11/20/19 18:00 76 Intake/Output Intake/Output: Intake & Output 11/18/19 11/19/19 11/20/19 11/21/19 23:59 23:59 23:59 23:59 Intake Total 1655 993 253 5686 Output Total 290 831 9702 3726 Balance 4827 -334 -3470 -3913 Meds/Results Medications: Active Medi
--- NOTE | 2019-11-21 17:14 | PM.PNNEP ---
Progress Note: A&P Assessment and Plan (1) End stage renal disease: Code(s): N18.6 - End stage renal disease Status: Chronic Assessment and Plan: continue CCPD while hospitalized follow electroltyes, volume status, and clearance (2) Hypokalemia: Code(s): E87.6 - Hypokalemia Status: Acute Assessment and Plan: presumably due to a combination of GI loss, total body store depletion, and dialysis replete K+ PRN - if this persists, would not be opposed to liberalizing diet magnesium okay follow trend (3) Seizure disorder: Code(s): G40.909 - Epilepsy, unspecified, not intractable, without status epilepticus Status: Acute Assessment and Plan: etiology?? Neurology evaluating related to tramadol -- has since been discontinued... CT of head negative (4) Hypertension: Code(s): I10 - Essential (primary) hypertension Status: Chronic Assessment and Plan: quite elevated on admission doing better at this time (5) Esophagitis with gastritis: Code(s): K29.70 - Gastritis, unspecified, without bleeding; K20.9 - Esophagitis, unspecified Status: Acute Assessment and Plan: as noted by EGD Gastroenterology following etiology of hiccups? follow-up on biopsies on IV PPI (6) Hyponatremia: Code(s): E87.1 - Hypo-osmolality and hyponatremia Status: Acute Assessment and Plan: doing better suspect admission value was pseudohyponatremia given his elevated blood sugar follow trend (7) Hyperglycemia: Code(s): R73.9 - Hyperglycemia, unspecified Status: Acute Assessment and Plan: due to inability to manage insulin pump follow accuchecks on SSI Will continue to follow. Subjective Date/time seen: 11/21/19 17:14 Appears to be doing better; diet being advanced slowly; still with some mild nausea/vomiting but doing significantly better with current therapy; no acute distress noted. Exam Narrative: Exam Narrative: General: WD/WN male in NAD Heart: normal S1 and S2; no rub Lungs: clear to auscultation Abdomen: soft, nontender, nondistended, positive bowel sounds Extremities: no cyanosis or clubbing; no edema Skin: warm and intact Objective Data Vital Signs Vital Signs: Vital Signs Temp Pulse Resp BP Pulse Ox 11/21/19 16:46 36.3 C L 85 20 146/68 H 95 11/21/19 16:00 90 11/21/19 12:00 36.2 C L 88 18 128/61 96 11/21/19 10:16 103 H 11/21/19 10:00 95 11/21/19 08:30 88 11/21/19 08:25 36.7 C 93 17 138/68 96 11/21/19 05:39 88 11/21/19 04:00 36.6 C 91 20 144/74 H 97 11/21/19 02:00 88 11/21/19 00:00 78 18 99 11/20/19 23:36 36.5 C 81 18 108/59 L 99 11/20/19 22:00 75 11/20/19 20:00 75 18 99 11/20/19 19:59 36.7 C 75 18 95/56 L 99 11/20/19 18:33 85 11/20/19 18:00 76 Intake/Output Intake/Output: Intake & Output 11/18/19 11/19/19 11/20/19 11/21/19 23:59 23:59 23:59 23:59 Intake Total 1655 550 625 0250 Output Total 640 685 8962 3728 Balance 6362 [phone] Meds/Results Medications: Active Medications Generic Name Dose Route Start Last Admin Trade Name Freq PRN Reason Stop Dose Admin Albuterol 2 puff 11/18/19 18:38 Proventil Hfa INHALATION Q6H PRN Wheezing Alprazolam 0.5 mg 11/18/19 18:38 11/21/19 13:39 Xanax PO 0.5 mg BID PRN Administration Anxiety Amlodipine Besylate 10 mg 11/19/19 09:00 11/21/19 10:17 Norvasc PO 10 mg DAILY BELKYS Administration Benzocaine 1 lozenge 11/19/19 15:36 Chloraseptic Lozenge PO PRN PRN Sore Throat Dextrose 12.5 gm 11/18/19 14:32 Dextrose 50% Syringe IV PUSH PRN PRN Hypoglycemia Protocol Ergocalciferol 50,000 unit 11/24/19 09:00 Drisdol PO Fr@0900 BELKYS Escitalopram Oxalate 20 mg 11/19/19 09:00 11/21/19 10:17 Lexapro PO
--- NOTE | 2019-11-21 19:12 | PM.IMPN ---
Progress Note: A&P Assessment and Plan (1) Seizure disorder: Code(s): G40.909 - Epilepsy, unspecified, not intractable, without status epilepticus Status: Acute Assessment and Plan: Probably multifactorial with electrolyte abnormalities, hyperglycemia, and hypertension. Hx of alcohol use but none for over 1 year. He is on Tramadol. CT braini negative. Continue valproate. Neurology following and appreciate their input. Increase activity level. Continue seizure precautions. Stop tramadol. (2) Esophagitis with gastritis: Code(s): K29.70 - Gastritis, unspecified, without bleeding; K20.9 - Esophagitis, unspecified Status: Acute Assessment and Plan: EGD on 11/20/2019 showing severe diffuse esophagitis involving most of the esophagus. Esophagus had severe erythema edema and was friable. Biopsies were taken. There is evidence of moderate amount of clear fluid in the stomach which was suctioned; possible gastroparesis. Also was noted to have a few superficial benign-appearing duodenal ulcers without active bleeding. Patient was on Carafate but this is been stopped. He continues on the Protonix. GI is following. Appreciate their input. Patient to advance his diet as he tolerates. (3) Hypertensive urgency: Code(s): I16.0 - Hypertensive urgency Status: Acute Assessment and Plan: Patient was given a dose of labetalol in the emergency room. PRN hydralazine ordered. Patient started on his home medications including ARB, beta-daria, hydralazine, amlodipine, and terazosin. BP better controlled with just his home medications. Continue to follow. (4) Hypokalemia: Code(s): E87.6 - Hypokalemia Status: Acute Assessment and Plan: Potassium low at times. Nephrology following. May need adjustment of dialysate. (5) Anxiety: Code(s): F41.9 - Anxiety disorder, unspecified Status: Chronic Assessment and Plan: Patient is on Lexapro and alprazolam at home which was continued here. Mood stable. (6) Depression: Code(s): F32.9 - Major depressive disorder, single episode, unspecified Status: Chronic Assessment and Plan: As above (7) End stage renal disease on dialysis: Code(s): N18.6 - End stage renal disease; Z99.2 - Dependence on renal dialysis Status: Chronic Assessment and Plan: Stable. Continue peritoneal dialysis. Nephrology following. Appreciate their input. (8) Type 1 diabetes: Code(s): E10.9 - Type 1 diabetes mellitus without complications Status: Chronic Assessment and Plan: A1c.9.0 The patient has an insulin pump but feels too ill to be able to manage his blood sugars at this time and he dose not know his basal rate. Patient started on Lantus 15 units and sliding scale. The patient's blood glucose was reviewed on 11/20 Glucose remains well controlled related to his poor oral intake. Watch for low glucoses. (9) Hyponatremia: Code(s): E87.1 - Hypo-osmolality and hyponatremia Status: Acute Assessment and Plan: Sodium 124 on admission. Patient had nausea vomiting and diarrhea earlier. The patient could be dehydrated and/or SIADH. Consider also pseudo-hyponatremia. He was given at least to 500 cc boluses of LR in the emergency room. Sodium has improved up to 134 today. Appreciate Nephrology input. (10) DVT prophylaxis: Code(s): Z29.9 - Encounter for prophylactic measures, unspecified Status: Acute Assessment and Plan: Heparin Subjective Date/time seen: 11/21/19 19:13 Interval history: Date of visit 11/20 39yo male with Type 1 DM and ESRD on peritoneal dialysis here for elevated blood sugar, nausea, vomiting, diarrhea, and elevated blood pressure. In the hat binder 11/18, patient had a grand mal seizure. Assuming care. Chart reviewed. Patient denies alcohol use. He quit 1 year ago. No histor
[2019-11-21 20:44] LABS: Glucose Point of Care 150 (65-105)
[2019-11-21] MEDS: HEPARIN SODIUM 5,000 UNITS/ML VIAL 5000 UNITS SUB-Q (21:14)
[2019-11-22] VITALS (18 sets, daily range): BP systolic 115–161; BP diastolic 64–92; PULSE 63–96; RESP 18–22; TEMP 36.1–36.6; O2SAT 96–97
[2019-11-22] MEDS: VALPROIC ACID INJ 500 MG in DEXTROSE 5% 100 ML 100 MG IVPB ×2 (05:19→13:40)
[2019-11-22 06:32] LABS: Hemoglobin 13.5 g/dL (14.0-18.0); Mean Corpuscular HGB Conc 32.9 g/dl (32-36); Mean Corpuscular Hemoglobin 28.5 pg (26-34); Mean Corpuscular Volume 86.5 fl (80-100); Platelet Count Result 266 k/mm3 (150-375); Red Blood Count 4.74 M/mm3 (4.6-6.20); Red Cell Distribution Width 12.6 % (11.5-14.5); White Blood Count 10.5 K/mm3 (4.5-10.0)
[2019-11-22 06:53] LABS: Alanine Aminotransferase 29 U/L (4-50); Albumin Level 2.4 g/dL (3.5-5.1); Alkaline Phosphatase 93 U/L (38-126); Anion Gap 7.99999 mmol/L (8-16); Aspartate Amino Transferase 30 U/L (17-59); Bilirubin,Total 0.3 mg/dL (0.2-1.3); Blood Urea Nitrogen 68 mg/dL (9-20); Calcium 7.6 mg/dL (8.4-10.2); Carbon Dioxide > 40 mmol/L (22-30); Chloride 89 mmol/L (98-107); Estimated CRCL calculation 10 ml/min; Estimated Glomerular Filt Rate 7; Glucose 138 mg/dL (75-110); Magnesium 2.3 mg/dL (1.6-2.3); Phosphorus 5.2 mg/dL (2.5-4.5); Potassium 2.4 mmol/L (3.4-5.0); Sodium 137 mmol/L (137-145)
[2019-11-22 07:57] LABS: Glucose Point of Care 126 (65-105)
[2019-11-22] MEDS: POTASSIUM CHLORIDE 20 MEQ TABLET 40 MEQ PO ×2 (08:29→21:02)
[2019-11-22] MEDS: ESCITALOPRAM OXALATE 10 MG TABLET 20 MG PO (08:30)
[2019-11-22] MEDS: METOPROLOL TARTRATE 50 MG TAB PO ×2 (08:30→17:39)
[2019-11-22] MEDS: IRBESARTAN 150 MG TABLET 300 MG PO (08:30)
[2019-11-22] MEDS: HEPARIN SODIUM 5,000 UNITS/ML VIAL 5000 UNITS SUB-Q ×2 (08:31→21:03)
[2019-11-22] MEDS: amLODIPine BESYLATE 5 MG TABLET 10 MG PO (08:31)
[2019-11-22] MEDS: PANTOPRAZOLE SODIUM IV 40 MG VIAL IV PUSH ×2 (08:32→21:03)
[2019-11-22] MEDS: hydrALAZINE HCL 50 MG TABLET PO ×2 (08:32→17:40)
[2019-11-22] MEDS: TERAZOSIN HCL 1 MG CAPSULE 2 MG PO ×2 (08:32→17:38)
[2019-11-22] MEDS: INSULIN GLARGINE (*BKC) 100 UNITS/ML 15 UNITS SUB-Q (08:35)
[2019-11-22] MEDS: KCL 20 MEQ/SW 100 ML 100 ML 50 MEQ IVPB ×2 (09:11→21:01)
[2019-11-22 11:39] LABS: Glucose Point of Care 238 (65-105)
[2019-11-22] MEDS: INSULIN ASPART (*BKC) 100 UNITS/ML SUB-Q (12:25)
--- NOTE | 2019-11-22 15:23 | WPDGIPROGNO ---
Progress Note: A&P Assessment and Plan (1) Esophagitis with gastritis: Code(s): K29.70 - Gastritis, unspecified, without bleeding; K20.9 - Esophagitis, unspecified Status: Acute Assessment and Plan: severe esophagitis, also had small DU without bleeding continue care home PPI bid, he is feeling better he did not like carafate therefore discontinued can go home soon by gi standpoint will need egd in 6 months to assess for healing (2) Nausea and vomiting in adult: Code(s): R11.2 - Nausea with vomiting, unspecified Status: Acute Assessment and Plan: improving he may also have dysmotility, probably as outpatient he can have gastric emptying study after resolution of esophagitis antiemetics prn (3) End stage renal disease: Code(s): N18.6 - End stage renal disease Status: Chronic Assessment and Plan: on PD (4) Type 1 diabetes: Code(s): E10.9 - Type 1 diabetes mellitus without complications Status: Chronic (5) Hypertensive urgency: Code(s): I16.0 - Hypertensive urgency Status: Acute Assessment and Plan: improved with medical treatment Subjective Date/time seen: 11/22/19 15:23 Interval history: he is feeling better, eating more and less nauseous Review of Systems Review of Systems: All systems reviewed & are unremarkable except as noted in HPI and below Exam Const: General: comfortable and no acute distress HENMT: General nose exam: Normal nares present Eyes: General: appearance normal, both eyes and all related structures Neck: Neck: no JVD Resp: Auscultation: clear to auscultation bilaterally Cardio: Rate: regular rate Rhythm: regular rhythm GI: Inspection: non-distended GI Palp: Yes Soft to palpation Auscultation: normal bowel sounds Other: PD catheter in place Skin: General skin exam: normal color Neuro: General: gait normal Speech: normal speech Extrem: General: normal to inspection Psych: Mental Status: mental status grossly normal Objective Data Vital Signs Vital Signs: Vital Signs - 24 hr 11/21/19 16:00 11/21/19 16:46 11/21/19 18:00 Temperature 97.4 F L Pulse Rate 90 85 84 Respiratory Rate 20 Blood Pressure 146/68 H Pulse Oximetry 95 11/21/19 18:12 11/21/19 19:51 11/21/19 20:00 Temperature 97.7 F Pulse Rate 82 75 75 Respiratory Rate 20 20 Blood Pressure 122/67 Pulse Oximetry 97 97 11/21/19 21:38 11/21/19 23:49 11/22/19 00:00 Temperature 97.7 F Pulse Rate 77 72 71 Respiratory Rate 18 18 Blood Pressure 125/68 Pulse Oximetry 97 97 11/22/19 02:00 11/22/19 04:00 11/22/19 06:00 Temperature 97.8 F Pulse Rate 76 84 86 Respiratory Rate 20 Blood Pressure 155/81 H Pulse Oximetry 97 11/22/19 08:00 11/22/19 08:30 11/22/19 10:00 Temperature 97.2 F L Pulse Rate 87 89 79 Respiratory Rate 20 Blood Pressure 161/92 H Pulse Oximetry 97 11/22/19 12:08 Temperature 97.4 F L Pulse Rate 78 Respiratory Rate 22 H Blood Pressure 143/86 H Pulse Oximetry 96 Intake/Output Intake/Output: Intake & Output 11/19/19 11/20/19 11/21/19 11/22/19 23:59 23:59 23:59 23:59 Intake Total 559 541 2928 1125 Output Total 705 1378 5300 9736 [facility] [place] -[phone] Meds/Results Medications: Active Medications Generic Name Dose Route Start Last Admin Trade Name Freq PRN Reason Stop Dose Admin Albuterol 2 puff 11/18/19 18:38 Proventil Hfa INHALATION Q6H PRN Wheezing Alprazolam 0.5 mg 11/18/19 18:38 11/21/19 13:39 Xanax PO 0.5 mg BID PRN Administration Anxiety Amlodipine Besylate 10 mg 11/19/19 09:00 11/22/19 08:31 Norvasc PO 10 mg DAILY BELKYS Administration Benzocaine 1 lozenge 11/19/19 15:36 Chloraseptic Lozenge PO PRN PRN Sore Throat Dextrose 12.5 gm 11/18/19 14:32 Dextrose 50% Syringe IV PUSH PRN PRN Hypoglycemia Protocol Ergocalciferol 50,000 unit
--- NOTE | 2019-11-22 15:25 | P.PNNP_ITS ---
Progress Note: A&P Assessment and Plan (1) End stage renal disease: Code(s): N18.6 - End stage renal disease Status: Chronic Assessment and Plan: * continue CCPD while hospitalized * follow electroltyes, volume status, and clearance (2) Hypokalemia: Code(s): E87.6 - Hypokalemia Status: Acute Assessment and Plan: * presumably due to a combination of GI loss, total body store depletion, and dialysis * replete K+ PRN - if this persists, would not be opposed to liberalizing diet - may need chronic po supplementation * magnesium okay * follow trend (3) Seizure disorder: Code(s): G40.909 - Epilepsy, unspecified, not intractable, without status epilepticus Status: Acute Assessment and Plan: * etiology?? * Neurology evaluating * related to tramadol(?) -- has since been discontinued... * CT of head negative (4) Hypertension: Code(s): I10 - Essential (primary) hypertension Status: Chronic Assessment and Plan: * quite elevated on admission * doing better at this time * continue home BP medications (5) Esophagitis with gastritis: Code(s): K29.70 - Gastritis, unspecified, without bleeding; K20.9 - Esophagitis, unspecified Status: Acute Assessment and Plan: * as noted by EGD * Gastroenterology following * etiology of hiccups? * follow-up on biopsies * on IV PPI (6) Hyponatremia: Code(s): E87.1 - Hypo-osmolality and hyponatremia Status: Acute Assessment and Plan: * doing better * suspect admission value was pseudohyponatremia given his elevated blood sugar * follow trend (7) Hyperglycemia: Code(s): R73.9 - Hyperglycemia, unspecified Status: Acute Assessment and Plan: * due to inability to manage insulin pump * follow accuchecks * on SSI Will continue to follow. Subjective Date/time seen: 11/22/19 15:25 Continues to tolerated CCPD well overnight without any problems or issues; still with some on/off nausea/emesis; K+ low again and getting replaced; asking me about going home. Exam Narrative: Exam Narrative: General: WD/WN male in NAD Heart: normal S1 and S2; no rub Lungs: clear to auscultation Abdomen: soft, nontender, nondistended, positive bowel sounds Extremities: no cyanosis or clubbing; no edema Skin: no nodules Objective Data Vital Signs Vital Signs: Vital Signs Temp Pulse Resp BP Pulse Ox 11/22/19 12:08 36.3 C L 78 22 H 143/86 H 96 11/22/19 10:00 79 11/22/19 08:30 36.2 C L 89 20 161/92 H 97 11/22/19 08:00 87 11/22/19 06:00 86 11/22/19 04:00 36.6 C 84 20 155/81 H 97 11/22/19 02:00 76 11/22/19 00:00 71 18 97 11/21/19 23:49 36.5 C 72 18 125/68 97 11/21/19 21:38 77 11/21/19 20:00 75 20 97 11/21/19 19:51 36.5 C 75 20 122/67 97 11/21/19 18:12 82 11/21/19 18:00 84 11/21/19 16:46 36.3 C L 85 20 146/68 H 95 11/21/19 16:00 90 Intake/Output Intake/Output: Intake & Output 11/19/19 11/20/19 11/21/19 11/22/19 23:59 23:59 23:59 23:59 Intake Total 818 338 4579 1125 Output Total 180 3174 8811 3272 [facility] [phone]
--- NOTE | 2019-11-22 15:25 | PM.PNNEP ---
Progress Note: A&P Assessment and Plan (1) End stage renal disease: Code(s): N18.6 - End stage renal disease Status: Chronic Assessment and Plan: continue CCPD while hospitalized follow electroltyes, volume status, and clearance (2) Hypokalemia: Code(s): E87.6 - Hypokalemia Status: Acute Assessment and Plan: presumably due to a combination of GI loss, total body store depletion, and dialysis replete K+ PRN - if this persists, would not be opposed to liberalizing diet - may need chronic po supplementation magnesium okay follow trend (3) Seizure disorder: Code(s): G40.909 - Epilepsy, unspecified, not intractable, without status epilepticus Status: Acute Assessment and Plan: etiology?? Neurology evaluating related to tramadol(?) -- has since been discontinued... CT of head negative (4) Hypertension: Code(s): I10 - Essential (primary) hypertension Status: Chronic Assessment and Plan: quite elevated on admission doing better at this time continue home BP medications (5) Esophagitis with gastritis: Code(s): K29.70 - Gastritis, unspecified, without bleeding; K20.9 - Esophagitis, unspecified Status: Acute Assessment and Plan: as noted by EGD Gastroenterology following etiology of hiccups? follow-up on biopsies on IV PPI (6) Hyponatremia: Code(s): E87.1 - Hypo-osmolality and hyponatremia Status: Acute Assessment and Plan: doing better suspect admission value was pseudohyponatremia given his elevated blood sugar follow trend (7) Hyperglycemia: Code(s): R73.9 - Hyperglycemia, unspecified Status: Acute Assessment and Plan: due to inability to manage insulin pump follow accuchecks on SSI Will continue to follow. Subjective Date/time seen: 11/22/19 15:25 Continues to tolerated CCPD well overnight without any problems or issues; still with some on/off nausea/emesis; K+ low again and getting replaced; asking me about going home. Exam Narrative: Exam Narrative: General: WD/WN male in NAD Heart: normal S1 and S2; no rub Lungs: clear to auscultation Abdomen: soft, nontender, nondistended, positive bowel sounds Extremities: no cyanosis or clubbing; no edema Skin: no nodules Objective Data Vital Signs Vital Signs: Vital Signs Temp Pulse Resp BP Pulse Ox 11/22/19 12:08 36.3 C L 78 22 H 143/86 H 96 11/22/19 10:00 79 11/22/19 08:30 36.2 C L 89 20 161/92 H 97 11/22/19 08:00 87 11/22/19 06:00 86 11/22/19 04:00 36.6 C 84 20 155/81 H 97 11/22/19 02:00 76 11/22/19 00:00 71 18 97 11/21/19 23:49 36.5 C 72 18 125/68 97 11/21/19 21:38 77 11/21/19 20:00 75 20 97 11/21/19 19:51 36.5 C 75 20 122/67 97 11/21/19 18:12 82 11/21/19 18:00 84 11/21/19 16:46 36.3 C L 85 20 146/68 H 95 11/21/19 16:00 90 Intake/Output Intake/Output: Intake & Output 11/19/19 11/20/19 11/21/19 11/22/19 23:59 23:59 23:59 23:59 Intake Total 946 786 2645 1125 Output Total 708 7991 6130 2793 [facility] -[phone] Meds/Results Medications: Active Medications Generic Name Dose Route Start Last Admin Trade Name Freq PRN Reason Stop Dose Admin Albuterol 2 puff 11/18/19 18:38 Proventil Hfa INHALATION Q6H PRN Wheezing Alprazolam 0.5 mg 11/18/19 18:38 11/21/19 13:39 Xanax PO 0.5 mg BID PRN Administration Anxiety Amlodipine Besylate 10 mg 11/19/19 09:00 11/22/19 08:31 Norvasc PO 10 mg DAILY BELKYS Administration Benzocaine 1 lozenge 11/19/19 15:36 Chloraseptic Lozenge PO PRN PRN Sore Throat Dextrose 12.5 gm 11/18/19 14:32 Dextrose 50% Syringe IV PUSH PRN PRN Hypoglycemia Protocol Ergocalciferol 50,000 unit 11/24/19 09:00 Drisdol PO Fr@0900 BELKYS Escitalopram O
[2019-11-22 16:26] LABS: Glucose Point of Care 113 (65-105)
--- NOTE | 2019-11-22 18:41 | PM.IMPN ---
Progress Note: A&P Assessment and Plan (1) Seizure disorder: Code(s): G40.909 - Epilepsy, unspecified, not intractable, without status epilepticus Status: Acute Assessment and Plan: Probably multifactorial with electrolyte abnormalities, hyperglycemia, and hypertension. Hx of alcohol use but none for over 1 year. He is on Tramadol which was stopped. CT brain negative. Continue valproate but change to oral. Neurology following and appreciate their input. Increase activity level. Continue seizure precautions. (2) Esophagitis with gastritis: Code(s): K29.70 - Gastritis, unspecified, without bleeding; K20.9 - Esophagitis, unspecified Status: Acute Assessment and Plan: EGD on 11/20/2019 showing severe diffuse esophagitis involving most of the esophagus. Esophagus had severe erythema edema and was friable. Biopsies were taken showing benign acute ulcer and negative for fungal elements. There is evidence of moderate amount of clear fluid in the stomach which was suctioned; possible gastroparesis. Also was noted to have a few superficial benign-appearing duodenal ulcers without active bleeding. Patient was on Carafate but this was stopped. He continues on the Protonix. GI is following. Appreciate their input. Patient continues to eat poorly. Will have dietary consulted. (3) Hypertensive urgency: Code(s): I16.0 - Hypertensive urgency Status: Acute Assessment and Plan: Patient was given a dose of labetalol in the emergency room. PRN hydralazine ordered. Patient started on his home medications including ARB, beta-daria, hydralazine, amlodipine, and terazosin. BP reviewed on 11/21 and is better controlled with just his home medications. Continue to follow. (4) Hypokalemia: Code(s): E87.6 - Hypokalemia Status: Acute Assessment and Plan: Potassium low again today. Nephrology informed with plans to adjust dialysis. (5) Anxiety: Code(s): F41.9 - Anxiety disorder, unspecified Status: Chronic Assessment and Plan: Patient is on Lexapro and alprazolam at home which was continued here. Mood stable. (6) Depression: Code(s): F32.9 - Major depressive disorder, single episode, unspecified Status: Chronic Assessment and Plan: As above (7) End stage renal disease on dialysis: Code(s): N18.6 - End stage renal disease; Z99.2 - Dependence on renal dialysis Status: Chronic Assessment and Plan: Stable. Continue peritoneal dialysis. Nephrology following. Appreciate their input. (8) Type 1 diabetes: Code(s): E10.9 - Type 1 diabetes mellitus without complications Status: Chronic Assessment and Plan: A1c.9.0 The patient has an insulin pump but feels too ill to be able to manage his blood sugars at this time and he dose not know his basal rate. Patient started on Lantus 15 units and sliding scale. The patient's blood glucose was reviewed on 11/21 Glucose remains reasonably well controlled related to his poor oral intake. Watch for low glucoses. Intensive Care Unit Registered Nurse to see (9) Hyponatremia: Code(s): E87.1 - Hypo-osmolality and hyponatremia Status: Acute Assessment and Plan: Sodium 124 on admission. Patient had nausea, vomiting and diarrhea earlier. The patient could be dehydrated and/or SIADH. Consider also pseudo-hyponatremia. He was given at least to 500 cc boluses of LR in the emergency room. Sodium has normalized to 137 today. Appreciate Nephrology input. (10) DVT prophylaxis: Code(s): Z29.9 - Encounter for prophylactic measures, unspecified Status: Acute Assessment and Plan: Heparin Subjective Date/time seen: 11/22/19 18:41 Interval history: Date of visit 11/21 39yo male with Type 1 DM and ESRD on peritoneal dialysis here for elevated blood sugar, nausea, vomiting, diarrhea, and elevated blood pressure. In
[2019-11-22 20:06] LABS: Glucose Point of Care 174 (65-105)
[2019-11-22 20:13] LABS: Potassium 2.7 mmol/L (3.4-5.0)
[2019-11-23] VITALS (9 sets, daily range): BP systolic 165–174; BP diastolic 81–101; PULSE 77–88; RESP 18–20; TEMP 36.1–36.3; O2SAT 98–99
[2019-11-23 05:29] LABS: Albumin Level 2.3 g/dL (3.5-5.1); Anion Gap 7 mmol/L (8-16); Blood Urea Nitrogen 75 mg/dL (9-20); Carbon Dioxide 34 mmol/L (22-30); Chloride 89 mmol/L (98-107); Estimated CRCL calculation 10 ml/min; Estimated Glomerular Filt Rate 7; Glucose 208 mg/dL (75-110); Magnesium 2.2 mg/dL (1.6-2.3); Sodium 130 mmol/L (137-145)
[2019-11-23 07:38] LABS: Glucose Point of Care 182 (65-105)
--- NOTE | 2019-11-23 09:42 | P.PNNP_ITS ---
Progress Note: A&P Assessment and Plan (1) End stage renal disease: Code(s): N18.6 - End stage renal disease Status: Chronic Assessment and Plan: * continue CCPD while hospitalized - resume tonight * follow electroltyes, volume status, and clearance (2) Hypokalemia: Code(s): E87.6 - Hypokalemia Status: Acute Assessment and Plan: * presumably due to a combination of GI loss, total body store depletion, and dialysis * replete K+ PRN - if this persists, would not be opposed to liberalizing diet - may need chronic po supplementation * magnesium okay * follow trend (3) Seizure disorder: Code(s): G40.909 - Epilepsy, unspecified, not intractable, without status epilepticus Status: Acute Assessment and Plan: * etiology?? * Neurology evaluating * related to tramadol(?) -- has since been discontinued... * CT of head negative (4) Hypertension: Code(s): I10 - Essential (primary) hypertension Status: Chronic Assessment and Plan: * quite elevated on admission * doing better at this time * continue home BP medications (5) Esophagitis with gastritis: Code(s): K29.70 - Gastritis, unspecified, without bleeding; K20.9 - Esophagitis, unspecified Status: Acute Assessment and Plan: * as noted by EGD * Gastroenterology following * etiology of hiccups? * follow-up on biopsies * on IV PPI (6) Hyponatremia: Code(s): E87.1 - Hypo-osmolality and hyponatremia Status: Acute Assessment and Plan: * doing better * suspect admission value was pseudohyponatremia given his elevated blood sugar * follow trend (7) Hyperglycemia: Code(s): R73.9 - Hyperglycemia, unspecified Status: Acute Assessment and Plan: * due to inability to manage insulin pump * follow accuchecks * on SSI Will continue to follow - not opposed to discharge from renal perspective if otherwise medically stable. Subjective Date/time seen: 11/23/19 09:42 Held CCPD treatment last night due to ongoing issues with hypokalemia; up and walking around; tolerating oral intake; no distress voiced. Exam Narrative: Exam Narrative: General: WD/WN male in NAD Heart: normal S1 and S2; no rub Lungs: clear to auscultation Abdomen: soft, nontender, nondistended, positive bowel sounds Extremities: no cyanosis or clubbing; no edema Skin: warm and dry Objective Data Vital Signs Vital Signs: Vital Signs Temp Pulse Resp BP Pulse Ox 11/23/19 08:19 36.1 C L 81 20 173/101 H 99 11/23/19 06:00 78 11/23/19 04:00 77 11/23/19 03:46 36.3 C L 77 18 165/81 H 99 11/23/19 00:00 80 11/22/19 23:57 36.1 C L 82 20 154/86 H 97 11/22/19 22:00 82 11/22/19 20:00 77 11/22/19 19:50 36.6 C 77 18 115/64 97 11/22/19 18:00 83 11/22/19 17:39 89 11/22/19 16:20 82 11/22/19 16:00 36.3 C L 81 20 148/64 H 97 11/22/19 14:00 78 11/22/19 12:30 63 11/22/19 12:08 36.3 C L 78 22 H 143/86 H 96 11/22/19 10:00 79 Intake/Output Intake/Output: Intake & Output 11/20/19 11/21/19 11/22/19 11/23/19 23:59 23:59 23:59 23:59 Intake Total 715 1994 1365 810 Output
--- NOTE | 2019-11-23 09:42 | PM.PNNEP ---
Progress Note: A&P Assessment and Plan (1) End stage renal disease: Code(s): N18.6 - End stage renal disease Status: Chronic Assessment and Plan: continue CCPD while hospitalized - resume tonight follow electroltyes, volume status, and clearance (2) Hypokalemia: Code(s): E87.6 - Hypokalemia Status: Acute Assessment and Plan: presumably due to a combination of GI loss, total body store depletion, and dialysis replete K+ PRN - if this persists, would not be opposed to liberalizing diet - may need chronic po supplementation magnesium okay follow trend (3) Seizure disorder: Code(s): G40.909 - Epilepsy, unspecified, not intractable, without status epilepticus Status: Acute Assessment and Plan: etiology?? Neurology evaluating related to tramadol(?) -- has since been discontinued... CT of head negative (4) Hypertension: Code(s): I10 - Essential (primary) hypertension Status: Chronic Assessment and Plan: quite elevated on admission doing better at this time continue home BP medications (5) Esophagitis with gastritis: Code(s): K29.70 - Gastritis, unspecified, without bleeding; K20.9 - Esophagitis, unspecified Status: Acute Assessment and Plan: as noted by EGD Gastroenterology following etiology of hiccups? follow-up on biopsies on IV PPI (6) Hyponatremia: Code(s): E87.1 - Hypo-osmolality and hyponatremia Status: Acute Assessment and Plan: doing better suspect admission value was pseudohyponatremia given his elevated blood sugar follow trend (7) Hyperglycemia: Code(s): R73.9 - Hyperglycemia, unspecified Status: Acute Assessment and Plan: due to inability to manage insulin pump follow accuchecks on SSI Will continue to follow - not opposed to discharge from renal perspective if otherwise medically stable. Subjective Date/time seen: 11/23/19 09:42 Held CCPD treatment last night due to ongoing issues with hypokalemia; up and walking around; tolerating oral intake; no distress voiced. Exam Narrative: Exam Narrative: General: WD/WN male in NAD Heart: normal S1 and S2; no rub Lungs: clear to auscultation Abdomen: soft, nontender, nondistended, positive bowel sounds Extremities: no cyanosis or clubbing; no edema Skin: warm and dry Objective Data Vital Signs Vital Signs: Vital Signs Temp Pulse Resp BP Pulse Ox 11/23/19 08:19 36.1 C L 81 20 173/101 H 99 11/23/19 06:00 78 11/23/19 04:00 77 11/23/19 03:46 36.3 C L 77 18 165/81 H 99 11/23/19 00:00 80 11/22/19 23:57 36.1 C L 82 20 154/86 H 97 11/22/19 22:00 82 11/22/19 20:00 77 11/22/19 19:50 36.6 C 77 18 115/64 97 11/22/19 18:00 83 11/22/19 17:39 89 11/22/19 16:20 82 11/22/19 16:00 36.3 C L 81 20 148/64 H 97 11/22/19 14:00 78 11/22/19 12:30 63 11/22/19 12:08 36.3 C L 78 22 H 143/86 H 96 11/22/19 10:00 79 Intake/Output Intake/Output: Intake & Output 11/20/19 11/21/19 11/22/19 11/23/19 23:59 23:59 23:59 23:59 Intake Total 715 1488 1365 810 Output Total 7378 6804 0285 600 [facility]6494 [phone] [id number] Meds/Results Medications: Active Medications Generic Name Dose Route Start Last Admin Trade Name Freq PRN Reason Stop Dose Admin Albuterol 2 puff 11/18/19 18:38 Proventil Hfa INHALATION Q6H PRN Wheezing Alprazolam 0.5 mg 11/18/19 18:38 11/21/19 13:39 Xanax PO 0.5 mg BID PRN Administration Anxiety Amlodipine Besylate 10 mg 11/19/19 09:00 11/22/19 08:31 Norvasc PO 10 mg DAILY BELKYS Administration Benzocaine 1 lozenge 11/19/19 15:36 Chloraseptic Lozenge PO PRN PRN Sore Throat Dextrose 12.5 gm 11/18/19 14:32 Dextrose 50% Syringe IV PUSH PRN PRN Hypoglycemia Protocol Ergocalciferol
[2019-11-23] MEDS: POTASSIUM CHLORIDE 20 MEQ TABLET 40 MEQ PO (09:52)
[2019-11-23] MEDS: hydrALAZINE HCL 50 MG TABLET PO (09:53)
[2019-11-23] MEDS: METOPROLOL TARTRATE 50 MG TAB PO (09:53)
[2019-11-23] MEDS: amLODIPine BESYLATE 5 MG TABLET 10 MG PO (09:53)
[2019-11-23] MEDS: ESCITALOPRAM OXALATE 10 MG TABLET 20 MG PO (09:53)
[2019-11-23] MEDS: TERAZOSIN HCL 1 MG CAPSULE 2 MG PO (09:53)
[2019-11-23] MEDS: IRBESARTAN 150 MG TABLET 300 MG PO (09:53)
[2019-11-23] MEDS: INSULIN GLARGINE (*BKC) 100 UNITS/ML 15 UNITS SUB-Q (09:54)
[2019-11-23] MEDS: PANTOPRAZOLE SODIUM IV 40 MG VIAL IV PUSH (09:54)
--- NOTE | 2019-11-23 11:11 | PM.DS ---
DS: Admitting Diagnosis Admitting Diagnosis Admitting Diagnosis: Severe Hyperglycemia/HTN URGENCY ESRD ON DIALYSIS DS: Discharge Diagnosis Discharge Diagnosis (1) Seizure disorder: Code(s): G40.909 - Epilepsy, unspecified, not intractable, without status epilepticus Status: Acute Assessment and Plan: Probably multifactorial with electrolyte abnormalities, hyperglycemia, and hypertension. Hx of alcohol use but none for over 1 year. He is on Tramadol. CT braini negative. He was started on valproate. Neurology was involved in his care. Tramadol was stopped. No further seizure activity. Patient was instructed not to drive and he voiced understanding of this. (2) Esophagitis with gastritis: Code(s): K29.70 - Gastritis, unspecified, without bleeding; K20.9 - Esophagitis, unspecified Status: Acute Assessment and Plan: GI consulted and had EGD on 11/20/2019 showing severe diffuse esophagitis involving most of the esophagus. Esophagus had severe erythema, edema and was friable. Biopsies were taken. There is evidence of moderate amount of clear fluid in the stomach which was suctioned; possible gastroparesis. Also was noted to have a few superficial benign-appearing duodenal ulcers without active bleeding. Patient was on Carafate but had trouble tolerating this so this it was stopped. He was started on Protonix. Biopsies results showing benign acute ulcer and negative for fungal elements. (3) Hypertensive urgency: Code(s): I16.0 - Hypertensive urgency Status: Acute Assessment and Plan: Patient was given a dose of labetalol in the emergency room. PRN hydralazine ordered. Patient started on his home medications including ARB, beta-daria, hydralazine, amlodipine, and terazosin. BP rmonitored closely and became better controlled with just his home medications. (4) Hypokalemia: Code(s): E87.6 - Hypokalemia Status: Acute Assessment and Plan: Potassium low at times. Not uncommon for patients on peritoneal dialysis. Discussed with Nephrology. Potassium supplemented with improvement. Plan for continued daily PD at home with yellow bag and oral supplementation - patient informed. . (5) Anxiety: Code(s): F41.9 - Anxiety disorder, unspecified Status: Chronic Assessment and Plan: Patient is on Lexapro and alprazolam at home which was continued here. Mood stable. (6) Depression: Code(s): F32.9 - Major depressive disorder, single episode, unspecified Status: Chronic Assessment and Plan: As above (7) End stage renal disease on dialysis: Code(s): N18.6 - End stage renal disease; Z99.2 - Dependence on renal dialysis Status: Chronic Assessment and Plan: Stable. We continued peritoneal dialysis. (8) Type 1 diabetes: Code(s): E10.9 - Type 1 diabetes mellitus without complications Status: Chronic Assessment and Plan: A1c.9.0 The patient has an insulin pump but feels too ill to be able to manage his blood sugars at this time and he dose not know his basal rate. Patient started on Lantus 15 units and sliding scale. The patient's blood glucose was monitored closely. Glucose remained reasonably well controlled related to his poor oral intake. He is eating better. he plans to resume his insulin pump. He did receive Lantus today so he can resume pump tomorrow nmorning. He voices understanding. He will have insulin needles to provide slidinig scale for later today. (9) Hyponatremia: Code(s): E87.1 - Hypo-osmolality and hyponatremia Status: Acute Assessment and Plan: Sodium 124 on admission. Patient had nausea, vomiting and diarrhea earlier. The patient could be dehydrated and/or SIADH. Consider also pseudo-hyponatremia. He was given at least to 500 cc boluses of LR in the emergency room. Sodium improved. DS: Summary Ho
[2019-11-23 12:21] LABS: Glucose Point of Care 267 (65-105)
[2019-11-23] MEDS: hydrALAZINE HCL 25 MG TABLET PO (12:24)
[2019-11-23] MEDS: POTASSIUM CHLORIDE 20 MEQ TABLET PO (12:24)
[2019-11-23] MEDS: INSULIN ASPART (*BKC) 100 UNITS/ML SUB-Q (12:24)
--- NOTE | 2019-11-23 13:14 | PC.NURSE ---
I was going through discharge paperwork with the patient after administering his noon medications when he suddenly vomited. Emesis output was 500mL. The patient stated he felt much better and I informed Dr. Foley who reported to the room to assess the patient. Dr. Foley spoke with the patient and agreed to continue with discharge. Patient informed by MD to call Dr. Thomas and schedule an appointment to followup for his gastroparesis and to return to the hospital if he had further worrisome symptoms. The patient stated understanding.
== END 2019-11-23 12:40 | disposition home or self-care (01) | DRG 304 ==
LOC: ANHED 13:14 → ANHIMU 13:40
PROVIDERS: Family Medicine; Internal Medicine; Internal Medicine Gastroenterology; Nurse Practitioner; Admitting Provider Family Medicine; Emergency Provider Emergency Medicine; PCP Physician Assistant; Visit Provider Internal Medicine
PROC: 0DJ08ZZ Inspection of Upper Intestinal Tract, Via Natural or Artificial Opening Endoscopic (ICD-10-PCS; CPT 43235; principal; 2019-11-20 14:45)
DX: I16.0 Hypertensive urgency (principal); N18.6 End stage renal disease; E87.1 Hypo-osmolality and hyponatremia; E10.22 Type 1 diabetes mellitus with diabetic chronic kidney disease; I12.0 Hypertensive chronic kidney disease with stage 5 chronic kidney disease or end stage renal disease; K20.90 Esophagitis, unspecified without bleeding; K31.89 Other diseases of stomach and duodenum; K26.9 Duodenal ulcer, unspecified as acute or chronic, without hemorrhage or perforation; K29.70 Gastritis, unspecified, without bleeding; R06.6 Hiccough; E10.65 Type 1 diabetes mellitus with hyperglycemia; Z99.2 Dependence on renal dialysis; G40.909 Epilepsy, unspecified, not intractable, without status epilepticus; E87.6 Hypokalemia; E88.9 Metabolic disorder, unspecified; F41.9 Anxiety disorder, unspecified; F32.9 Major depressive disorder, single episode, unspecified; Z96.41 Presence of insulin pump (external) (internal); Z79.4 Long term (current) use of insulin; Z79.899 Other long term (current) drug therapy
CPT/HCPCS: 36415; 36600; 70450; 71045; 80048; 80053; 80069; 80307; 81001; 82010; 82375; 82805; 82948; 83036; 83050; 83690; 83735; 84100; 84132; 84439; 84443; 84480; 85025; 85027; 87081; 88305; 88312; 90945; 93005; 96361; 96365; 96366; 96375; 96376; 99285; A9270; C9113; G0378; J0360; J1200; J1644; J1815; J2060; J2405; J2550; J2704; J2765; J3480; J7030; J7040; J7120

== ENCOUNTER 2020-06-01 14:23 | Observation (INO) | payer MEDICARE, MEDICAID, SELFPAY ==
[2020-06-01] VITALS (39 sets, daily range): BP systolic 125–194; BP diastolic 78–117; PULSE 91–99; RESP 10–20; TEMP 35.9–36.5; O2SAT 96–100
[2020-06-01 15:25] LABS: Basophils Absolute Auto 0.1 K/mm3 (0.0-0.1); Basophils Percent Auto 0.4 % (0.2-1.2); Eosinophils Absolute Auto 0.3 K/mm3 (0-0.3); Eosinophils Percent Auto 2.5 % (0-4.4); Immature Granulocyte Absolute 0.44 K/mm3 (0.00-0.031); Immature Granulocyte Percent A 3.6 % (0-0.5); Lymphocytes Percent Auto 9.8 % (18.3-44.2); Mean Corpuscular HGB Conc 31.3 g/dl (32-36); Mean Corpuscular Hemoglobin 30.8 pg (26-34); Mean Corpuscular Volume 98.5 fl (80-100); Mean Platelet Volume 9.2 fl (7.4-10.4); Monocytes Absolute Auto 0.8 K/mm3 (0.1-0.6); Monocytes Percent Auto 6.4 % (2.6-8.5); Neutrophils Absolute Auto 9.4 K/mm3 (1.3-6.7); Neutrophils Percent Auto 77.3 % (45.5-73.1); Platelet Count Result 305 k/mm3 (150-375); Red Blood Count 1.98 M/mm3 (4.6-6.20); White Blood Count 12.2 K/mm3 (4.5-10.0)
[2020-06-01 15:29] LABS: Hematocrit 19.5 % (42.0-52.0); Hemoglobin 6.1 g/dL (14.0-18.0)
[2020-06-01 15:37] LABS: Alanine Aminotransferase 89 U/L (4-50); Albumin Level 3.2 g/dL (3.5-5.1); Alkaline Phosphatase 377 U/L (38-126); Anion Gap 4 mmol/L (8-16); Aspartate Amino Transferase 80 U/L (17-59); Bilirubin,Total 0.2 mg/dL (0.2-1.3); Blood Urea Nitrogen 28 mg/dL (9-20); Calcium 8.4 mg/dL (8.4-10.2); Carbon Dioxide 33 mmol/L (22-30); Chloride 99 mmol/L (98-107); Estimated Glomerular Filt Rate 19; Glucose 118 mg/dL (75-110); Potassium 3.7 mmol/L (3.4-5.0); Sodium 136 mmol/L (137-145)
[2020-06-01 15:42] LABS: Platelet Estimate Adequate (Adequate)
[2020-06-01 15:43] LABS: Anisocytosis 2+ (NORMAL); Hypochromasia 1+ (NORMAL)
--- NOTE | 2020-06-01 15:46 | ED.GENADULT ---
HPI - General Adult General Chief complaint: Recheck/Abnormal Lab/Rx <Berto Courtney PA-C - Last Filed: 06/01/20 17:48> Stated complaint: need blood transfusion <Berto Courtney PA-C - Last Filed: 06/01/20 17:48> Time Seen by Provider: 06/01/20 15:43 <Berto Courtney PA-C - Last Filed: 06/01/20 17:48> History of Present Illness HPI narrative: Patient is a 39 YO male with ESRD on HD sent in for low blood counts. His HD center was doing routine blood work which they do frequently. Patient reports he has been SOB recently and also feeling anxious for about a week. Having orthopnea and HUSSEIN. Getting fatigued easily. He has need a transfusion once before and that was about 5 months ago. Admits to diarrhea - it stopped 2 days ago but before that he had diarrhea about a week, he was having 6-7 bowel movments a day. No blood in stool. Black stools. No vomiting. No abdominal pain. He does have diarrhea often for the last 3-4 years though - he is followed by GI Dr. Mcclure out of [facility]. HD schedule - , , Wed. He had HD this morning. Laundry Routeman to Dr. Carmichael. <Berto Courtney PA-C - Last Filed: 06/01/20 17:48> Related Data Home medications: Home Medications Medication Instructions Recorded Confirmed albuterol sulfate [Ventolin HFA] 2 puff INHALATION Q6H PRN 11/04/19 11/18/19 alprazolam 0.5 mg PO BID PRN 11/04/19 11/18/19 amlodipine 10 mg PO DAILY 11/04/19 11/18/19 ergocalciferol (vitamin D2) 50,000 mcg PO WEEKLY 11/04/19 11/18/19 [Vitamin D2] escitalopram oxalate 20 mg PO DAILY 11/04/19 11/18/19 hydralazine 50 mg PO BID 11/04/19 11/18/19 insulin lispro [Humalog U-100 See Rx Instructions .ROUTE .COMPLEX 11/04/19 11/18/19 Insulin] irbesartan 300 mg PO DAILY 11/04/19 11/18/19 metoprolol tartrate 50 mg PO BID 11/04/19 11/18/19 terazosin 2 mg PO BID 11/04/19 11/18/19 <SABAS Galdamez Last Filed: 06/01/20 17:48> Allergies/adverse reactions: Allergies Allergy/AdvReac Type Severity Reaction Status Date / Time fluorescein Allergy Severe HIVES, BP Verified 06/01/20 15:12 DROPPED, SWELLING TONGUE Penicillins Allergy Unknown Unknown Verified 06/01/20 15:12 Sulfa (Sulfonamide Allergy Unknown Unknown Verified 06/01/20 15:12 Antibiotics) chlorpromazine Allergy Rash Verified 06/01/20 15:12 [From Thorazine] <SABAS Galdamez Last Filed: 06/01/20 17:48> Review of Systems Constitutional: Constitutional: Reports as per HPI, Denies fever(s), Denies night sweats and Denies weakness <SABAS Galdamez Last Filed: 06/01/20 17:48> Cardiovascular: Cardiovascular: Denies chest pain, Denies edema, Denies leg edema, Denies dyspnea and Denies orthopnea <SABAS Galdamez Last Filed: 06/01/20 17:48> Respiratory: Respiratory: Reports cough, Reports dyspnea and Reports dyspnea on exertion <SABAS Galdamez Last Filed: 06/01/20 17:48> Gastrointestinal: Gastrointestinal: Reports as per HPI, Denies abdominal pain, Denies constipation, Reports diarrhea, Denies nausea and Denies vomiting <SABAS Galdamez Last Filed: 06/01/20 17:48> Musculoskeletal: Musculoskeletal: Denies abnormal gait, Denies back pain, Denies numbness and Denies tingling <SABAS Galdamez Last Filed: 06/01/20 17:48> Neurologic: Denies Abnormal speech present, Denies abnormal gait, Denies numbness, Denies tingling and Denies weakness <SABAS Galdamez Last Filed: 06/01/20 17:48> Psychiatric: Psychiatric: Denies homicidal ideation and Denies suicidal ideation <Berto Courtney PA-C - Last Filed: 06/01/20 17:48> [facility], [facility] Past Medical History Medical History: Medical History (Updated 06/01/20 @ 17:48 by Berto Courtney PA-C) Anxiety Depression End stage renal disease End stage renal disease on dialysis peritoneal dialysis Hiccups Hypertension Migraines Nausea and vomiting i
[2020-06-01 17:42] LABS: Immature Reticulocyte Fraction 31.7 % (3.0-15.9); Reticulocyte Percent 2.91 % (0.7-4.3); Reticulocytes Absolute 0.06 B/L (32.2-175.7)
[2020-06-01 17:48] LABS: Iron 97 ug/dL (49-181)
[2020-06-01 17:57] LABS: Percent Iron Saturation 38 % (20-50)
[2020-06-01] MEDS: hydrALAZINE HCL 20 MG/ML VIAL 10 MG IV PUSH (19:25)
--- NOTE | 2020-06-01 20:45 | PC.NURSE ---
This patient, Ari Zuniga, was admitted to 3 [facility] Surg Room 322-01. Patient/family oriented to hospital policies and general routines including ID bracelet, bed and alarms, visiting hours, pain management, procedures, bathroom and other care routines, personal items, smoking policy, room service/diet, and visiting hours. Information on how to activate the Rapid Response Team has been discussed. Patient/Family are encouraged to report perceived risks to care and to ask questions if they do not understand what they are told or what they should do.
[2020-06-01 21:27] LABS: Glucose Point of Care 96 (65-105)
[2020-06-02] VITALS (11 sets, daily range): BP systolic 164–203; BP diastolic 94–110; PULSE 96–106; RESP 14–20; TEMP 36.9–37.1; O2SAT 91–96; BMI 24.6
--- NOTE | 2020-06-02 01:17 | PM.IMHP ---
H&P: HPI History of Present Illness Date/Time: 06/02/20 01:17 this is a 39-year-old male patient who has end-stage renal disease and is on hemodialysis Wednesday. The patient stated that he did have dialysis on this Wednesday. The patient said that he was sent into the emergency room due to low blood counts. He is on room air and is not complaining of any chest pain or shortness of breath. 19.5. His white count is 12.2. His blood pressure is 183/105. His glucose was 19. His TIBC is 254. AST is 80 ALT is 89 alkaline phosphatase is 377. The patient stated that he had a blood transfusion approximately 5 months ago. He also stated that he received Epogen shots in the past. 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 2 units of packed red blood cells has been ordered For the patient and the patient has received 1 so far. The patient stated that he just feels cold and that is normal for him. To ER that he had been short of breath recently and feeling anxious for the last week. He had orthopnea and dyspnea on exertion.. The patient did not notice any blood in his stool and he sees a GI specialist and [place] by the name of Dr. Mcclure. In the emergency room. Patient is being admitted to observation the date of service that I saw the patient was 06/03/2019 Chief Complaint: Abnormal labs Review of Systems Review of Systems: All systems reviewed & are unremarkable except as noted in HPI and below Constitutional: Constitutional: Reports as per HPI and Reports no additional constitutional complaints Eyes: Eyes: Reports as per HPI and Reports no additional eye complaints ENT: Reports system reviewed and no additional complaints, except as documented and Reports Normal hearing present Cardiovascular: Cardiovascular: Reports no additional cardiovascular complaints Respiratory: Respiratory: Reports no additional respiratory complaints and Reports no additional respiratory complaints Gastrointestinal: Gastrointestinal: Reports as per HPI and Reports no additional gastrointestinal complaints Musculoskeletal: Musculoskeletal: Reports no additional musculoskeletal complaints Integumentary/Breasts: Skin/Breast: Reports system reviewed and no additional complaints, except as docu and Reports as per HPI Neurologic: Reports system reviewed and no additional complaints, except as documented, Reports as per HPI and Reports Normal hearing present Psychiatric: Psychiatric: Reports no additional psychiatric complaints and Reports as per HPI Endocrine: Endocrine: Reports no additional endocrine complaints Hematologic/Lymphatic: Hematologic/Lymphatic: Reports no additional hematologic/lymphatic complaints Allergic/Immunologic: Allergic/Immunologic: Reports no additional allergic/immunologic complaints [facility] Past Medical History Medical History (Updated 06/02/20 @ 01:32 by Savi Oleary NP) Anemia requiring transfusions Anxiety Asthma Depression End stage renal disease End stage renal disease on dialysis peritoneal dialysis Hiccups Hypertension Migraines Nausea and vomiting in adult Type 1 diabetes diagnosis at the age of 14 and has an insulin pump Surgical History Surgical History (Updated 06/02/20 @ 01:24 by Savi Oleary NP) History of appendectomy Hx of cholecystectomy Presence of peritoneal dialysis catheter Previous back surgery S/P dialysis catheter insertion Right upper chest Status post LASIK surgery of both eyes Family History Family History Mother Diabetes mellitus Cerebrovascular accident Father Hypertension Social History Social History (Updated 06/02/20 @ 01:25 by Savi Oleary NP) Social History: the patient lives with his . He is disabled. The patient stated that he is on a transplant list for a kidney as well as pancreas but is currently on hold due to his illness. He has no biological children but is has
[2020-06-02 02:44] LABS: Hemoglobin A1C 7.5 % (<5.7)
[2020-06-02 03:08] LABS: Phenytoin Dilantin < 3 ug/mL (10-20)
[2020-06-02 03:22] LABS: Valproic Acid 14.6 ug/mL (50-120)
[2020-06-02] MEDS: PHENYTOIN SODIUM 100 MG CAP PO ×3 (03:34→14:30)
[2020-06-02] MEDS: SODIUM CHLORIDE 0.9% IV 250 ML 30 ML IV CONT (03:35)
[2020-06-02] MEDS: TUBING, BLOOD PLUM PUMP TUBING 1 EACH XX (03:36)
[2020-06-02] MEDS: METOPROLOL TARTRATE 50 MG TAB PO (06:34)
[2020-06-02] MEDS: hydrALAZINE HCL 50 MG TABLET PO (06:34)
[2020-06-02 07:25] LABS: Glucose Point of Care 276 (65-105)
[2020-06-02] MEDS: INSULIN ASPART (*BKC) 100 UNITS/ML SUB-Q (07:26)
[2020-06-02] MEDS: INSULIN ASPART (*BKC) 100 UNITS/ML 15 UNITS SUB-Q ×2 (07:27→12:23)
[2020-06-02 08:37] LABS: Basophils Absolute Auto 0.1 K/mm3 (0.0-0.1); Basophils Percent Auto 0.6 % (0.2-1.2); Eosinophils Absolute Auto 0.3 K/mm3 (0-0.3); Eosinophils Percent Auto 2.8 % (0-4.4); Hematocrit 26.8 % (42.0-52.0); Hemoglobin 8.7 g/dL (14.0-18.0); Immature Granulocyte Absolute 0.18 K/mm3 (0.00-0.031); Immature Granulocyte Percent A 1.8 % (0-0.5); Lymphocytes Absolute Auto 0.82 K/mm3 (0.9-3.2); Lymphocytes Percent Auto 8.4 % (18.3-44.2); Mean Corpuscular HGB Conc 32.5 g/dl (32-36); Mean Corpuscular Hemoglobin 31.1 pg (26-34); Mean Corpuscular Volume 95.7 fl (80-100); Mean Platelet Volume 9.4 fl (7.4-10.4); Monocytes Absolute Auto 0.5 K/mm3 (0.1-0.6); Monocytes Percent Auto 5.2 % (2.6-8.5); Neutrophils Percent Auto 81.2 % (45.5-73.1); Nucleated Red Blood Cells Perc 0.2 % (0.0-0.2); Platelet Count Result 277 k/mm3 (150-375); Red Cell Distribution Width 15.2 % (11.5-14.5); White Blood Count 9.8 K/mm3 (4.5-10.0)
[2020-06-02 08:53] LABS: Alanine Aminotransferase 62 U/L (4-50); Albumin Level 2.8 g/dL (3.5-5.1); Alkaline Phosphatase 301 U/L (38-126); Anion Gap 5 mmol/L (8-16); Aspartate Amino Transferase 43 U/L (17-59); Bilirubin,Total 0.2 mg/dL (0.2-1.3); Blood Urea Nitrogen 41 mg/dL (9-20); Calcium 8.1 mg/dL (8.4-10.2); Carbon Dioxide 27 mmol/L (22-30); Chloride 104 mmol/L (98-107); Estimated CRCL calculation 22 ml/min; Estimated Glomerular Filt Rate 14; Glucose 260 mg/dL (75-110); Magnesium 1.9 mg/dL (1.6-2.3); Sodium 136 mmol/L (137-145)
--- NOTE | 2020-06-02 09:03 | PM.IMPN ---
Progress Note: A&P Assessment and Plan (1) Anemia requiring transfusions: Code(s): D64.9 - Anemia, unspecified Status: Chronic Assessment and Plan: Likely anemia chronic disease. Normocytic. No s/sx of blood loss per patient. He does have history of severe esophagitis from EGD on 11/20/19; he has been compliant with his BID PPI. Stool occult negative. Iron panel shows normal iron, mildly low TIBC, normal %sat. Received 2 u pRBC since arrival. Hgb now up to 8.7 this morning. Symptoms have overall improved. Eager to be discharged Will check H&H this afternoon Possibly discharged if H&H stable and BP improved F/u with PCP and GI specialist, Dr. Mcclure at [place] [facility] for now (2) Asthma: Code(s): J45.909 - Unspecified asthma, uncomplicated Status: Chronic Assessment and Plan: No acute issues Continue with home albuterol (3) End stage renal disease: Code(s): N18.6 - End stage renal disease Status: Chronic Assessment and Plan: Recently started HD TTS; was on PD prior to this. Follows Dr. Carmichael. Dr. Sage consulted but may discharge prior to need of HD F/u with Dr. Carmichael Continue HD TTS Will d/c Nephrology consultation (4) Anxiety: Code(s): F41.9 - Anxiety disorder, unspecified Status: Chronic Assessment and Plan: No acute issues Continue home medications (5) Depression: Code(s): F32.9 - Major depressive disorder, single episode, unspecified Status: Chronic Assessment and Plan: No acute issues Continue home medications (6) Hypertension: Code(s): I10 - Essential (primary) hypertension Status: Chronic Assessment and Plan: BP elevated into 200s prior to morning medications; these have been given at around 0700. Recheck BP Continue home antihypertensives (7) Elevated liver enzymes: Code(s): R74.8 - Abnormal levels of other serum enzymes Status: Acute Assessment and Plan: Unclear etiology; possibly poor liver perfusion due to severe anemia? Improving today F/u with PCP (8) Type 1 diabetes: Code(s): E10.9 - Type 1 diabetes mellitus without complications Status: Chronic Assessment and Plan: A1c 7.5 Continue home regimen Accuchecks ACHS, hypoglycemia protocol, correctional insulin, diabetic diet (9) Seizures due to metabolic disorder: Code(s): R56.9 - Unspecified convulsions; E88.9 - Metabolic disorder, unspecified Status: Acute Assessment and Plan: No acute issues Continue with home regimen Subjective Date/time seen: 06/02/20 09:03 Interval history: Patient is a 39 yo M with history of ESRD now on HD TTS, HTN, DMI, anxiety, and anemia requiring transfusions who is seen in follow up for symptomatic anemia; he has received 2 u pRBC since arrival. Patient states he feels much better today, less fatigued, less SOB and nursing notes he has been walking the halls today with ease. He again denies any s/sx of blood loss including hematuria, bloody stools, melena. He is eager to be discharged today if blood counts are stable. No other complaints. Denies f/c/s, headaches, dizziness, lightheadedness, cp/palpitations, current sob, n/v/d/c, abd pain, changes in BMs, dysuria, cloudy urine, calf pain/swelling. Review of Systems Review of Systems: All systems reviewed & are unremarkable except as noted in HPI and below Exam Narrative: Exam Narrative: General: Patient sleeping on left side in bed in no acute distress. Easily arousable to verbal stimuli. HEENT: Normocephalic, EOMI, oral mucosa moist. Cardiovascular
[2020-06-02 09:13] LABS: IFOB Positive Control Positive; Immunochemical Fecal Occult Bl Negative (N)
[2020-06-02] MEDS: FUROSEMIDE 80 MG TABLET PO (09:58)
[2020-06-02] MEDS: LOSARTAN POTASSIUM 100 MG TABLET PO (09:58)
[2020-06-02] MEDS: PANTOPRAZOLE 40 MG TABLET PO (09:58)
[2020-06-02] MEDS: VITAMIN B CMPLX/VIT C/FOLIC AC 1 CAPSULE 1 CAP PO (09:58)
[2020-06-02] MEDS: CALCIUM ACETATE 667 MG TABLET 1334 MG PO (09:59)
[2020-06-02] MEDS: ESCITALOPRAM OXALATE 10 MG TABLET 20 MG PO (09:59)
[2020-06-02] MEDS: diazePAM (*CRX) 5 MG TABLET PO (10:02)
[2020-06-02] MEDS: METOCLOPRAMIDE HCL 10 MG TABLET PO ×2 (10:03→14:30)
[2020-06-02] MEDS: INSULIN GLARGINE (*BKC) 100 UNITS/ML 15 UNITS SUB-Q (10:07)
[2020-06-02] MEDS: TERAZOSIN HCL 1 MG CAPSULE 4 MG PO (10:19)
[2020-06-02 11:51] LABS: Glucose Point of Care 104 (65-105)
[2020-06-02] MEDS: SEVELAMER CARBONATE 800 MG TABLET PO (12:35)
[2020-06-02 14:20] LABS: Glucose Point of Care 51 (65-105)
[2020-06-02] MEDS: GLUCOSE ORAL GEL 15 GM OF GLUCSE IN 37.5 GM TUBE PO (14:29)
[2020-06-02 14:36] LABS: Hematocrit 27.7 % (42.0-52.0); Hemoglobin 9.2 g/dL (14.0-18.0)
--- NOTE | 2020-06-02 14:52 | PM.DS ---
DS: Admitting Diagnosis Admitting Diagnosis Admitting Diagnosis: Anemia requiring transfusions DS: Discharge Diagnosis Discharge Diagnosis (1) Anemia requiring transfusions: Code(s): D64.9 - Anemia, unspecified Status: Chronic Assessment and Plan: Likely anemia chronic disease. Normocytic. No s/sx of blood loss per patient. He does have history of severe esophagitis from EGD on 11/20/19; he has been compliant with his BID PPI. Stool occult negative. Iron panel shows normal iron, mildly low TIBC, normal %sat. Received 2 u pRBC since arrival. Hgb now up to 8.7 this morning; repeat 9.2 this afternoon. Symptoms have overall improved. Eager to be discharged. F/u with PCP and GI specialist, [facility] next week (2) Asthma: Code(s): J45.909 - Unspecified asthma, uncomplicated Status: Chronic Assessment and Plan: No acute issues Continue with home albuterol (3) End stage renal disease: Code(s): N18.6 - End stage renal disease Status: Chronic Assessment and Plan: Recently started HD TTS; was on PD prior to this. Follows Dr. Carmichael. Dr. Sage consulted but may discharge prior to need of HD F/u with Dr. Carmichael Continue HD TTS Will d/c Nephrology consultation (4) Anxiety: Code(s): F41.9 - Anxiety disorder, unspecified Status: Chronic Assessment and Plan: No acute issues Continue home medications (5) Depression: Code(s): F32.9 - Major depressive disorder, single episode, unspecified Status: Chronic Assessment and Plan: No acute issues Continue home medications (6) Hypertension: Code(s): I10 - Essential (primary) hypertension Status: Chronic Assessment and Plan: BP better but still elevated; 170s sys most recently. BP to be monitored at home F/u with PCP Continue home antihypertensives (7) Elevated liver enzymes: Code(s): R74.8 - Abnormal levels of other serum enzymes Status: Acute Assessment and Plan: Unclear etiology; possibly poor liver perfusion due to severe anemia? Improving today F/u with PCP (8) Type 1 diabetes: Code(s): E10.9 - Type 1 diabetes mellitus without complications Status: Chronic Assessment and Plan: A1c 7.5 Continue home regimen Accuchecks ACHS, hypoglycemia protocol, correctional insulin, diabetic diet (9) Seizures due to metabolic disorder: Code(s): R56.9 - Unspecified convulsions; E88.9 - Metabolic disorder, unspecified Status: Acute Assessment and Plan: No acute issues Continue with home regimen DS: Summary Hospital Course Reason for hospitalization: Anemia requiring transfusions Hospital Course: Date of arrival: 06/01/20 Date of discharge: 06/02/20 Patient is a 39 yo M with history of ESRD now on HD TTS, HTN, DMI, anxiety, and anemia requiring transfusions who presented to the ED from his HD center on 06/01 with reports of low blood counts on routine labs that day. Patient reported recent increasing SOB, with HUSSEIN and orthopnea, as well as, associated fatigue. He denied any blood in stool/black stool or any other reports of signs/symptoms of blood loss. Hgb at HD center was reportedly 5.9; on arrival to ED, Hgb was 6.1. 2 u pRBC were ordered; 1 was transfused in ED. Nephrology consulted from the ED. After admission, Patient received his second pRBC. He underwent his normal HD on 06/01. His symptoms largely resolved with the 2 u pRBC. His Hgb was stable at 9.2 on 06/02. His blood pressure was noted to be elevated into 200s systolic, however, this was prior to his morning me
[2020-06-02 15:04] LABS: Glucose Point of Care 108 (65-105)
[2020-06-04 14:46] LABS: Red Blood Cell Folate >1000 ng/mL RBC (>280)
== END 2020-06-02 15:40 | disposition home or self-care (01) ==
LOC: ANHED 17:48 → ANH3MEDSUR 19:11
PROVIDERS: Emergency Medicine; Nurse Practitioner; Physician Assistant; Physician Assistant Medical; Admitting Provider Internal Medicine; Emergency Provider General Practice; PCP Physician Assistant; Visit Provider Internal Medicine
DX: D64.9 Anemia, unspecified (principal); R06.09 Other forms of dyspnea; J45.909 Unspecified asthma, uncomplicated; I12.0 Hypertensive chronic kidney disease with stage 5 chronic kidney disease or end stage renal disease; E10.22 Type 1 diabetes mellitus with diabetic chronic kidney disease; N18.6 End stage renal disease; Z99.2 Dependence on renal dialysis; R74.8 Abnormal levels of other serum enzymes; R56.9 Unspecified convulsions; E88.9 Metabolic disorder, unspecified; Z79.4 Long term (current) use of insulin; F41.8 Other specified anxiety disorders; Z96.41 Presence of insulin pump (external) (internal); Z79.51 Long term (current) use of inhaled steroids
CPT/HCPCS: 36415; 36430; 80053; 80164; 80185; 82274; 82607; 82747; 82948; 83036; 83540; 83550; 83735; 85014; 85018; 85025; 85046; 86850; 86900; 86901; 86923; 96374; 99285; A9270; G0378; J0360; J1815; J7050; P9016

== ENCOUNTER 2020-07-08 15:27 | Inpatient (IN) | payer MEDICARE, MEDICAID, SELFPAY ==
[2020-07-08] VITALS (18 sets, daily range): BP systolic 175–214; BP diastolic 101–123; PULSE 88–104; RESP 9–22; TEMP 36.5–36.8; O2SAT 90–99; BMI 23.4
--- NOTE | ~2020-07-08 | US_ITS ---
EXAMINATION: US venous doppler [facility] DATE: 07/08/2020 17:12 INDICATION: Lower extremity pain TECHNIQUE: Garcia scale images without and with compression and Doppler images of the bilateral lower e xtremity veins were obtained. COMPARISON: None FINDINGS: The right common femoral vein, profunda femoral vein, femoral vein, popliteal vein, peroneal trunk, p osterior tibial veins, and greater saphenous vein are patent. The left common femoral vein, profunda femoral vein, femoral vein, popliteal vein, peroneal trunk, po sterior tibial veins, and greater saphenous vein are patent. IMPRESSION: 1. Patent bilateral lower extremity veins. No evidence of deep venous thrombosis. Reviewed, dictated and finalized at location A. IMPRESSION: 1. Patent bilateral lower extremity veins. No evidence of deep venous thrombosi s.
--- NOTE | ~2020-07-08 | XR_ITS ---
EXAMINATION: XR chest 2V EXAM DATE: 07/09/2020 15:36 INDICATION: Shortness of breath. TECHNIQUE: Frontal and lateral projections of the chest obtained and reviewed. Comparison is made to prior examination from 07/08/2020. FINDINGS: There is a right-sided double-lumen dialysis catheter, tip projecting over the cavoatrial junction. There are small bilateral pleural effusions. Bibasilar posterior sulcus airspace disease wh ich is nonspecific, unchanged compared to prior study. Mild cardiomegaly. No pneumothorax. IMPRESSION: 1. Cardiomegaly, small pleural effusions. 2. Bibasilar atelectasis, edema or pneumonia. Reviewed, dictated and finalized at location A.
--- NOTE | ~2020-07-08 | XR_ITS ---
EXAMINATION: XR chest 2V DATE: 07/08/2020 16:40 INDICATION: Cough and shortness of breath TECHNIQUE: PA and lateral views of the chest are obtained. COMPARISON: 11/18/2019 FINDINGS: There is a mild interstitial pattern. Minimal opacities are present in the lung bases. Ther e are small pleural effusions. No pneumothorax is identified. Cardiomegaly is noted. The visualized b ones and soft tissues are unremarkable. A large bore right internal jugular catheter ends with its ti p in the distal superior vena cava. IMPRESSION: 1. Cardiomegaly with mild pulmonary edema. 2. Small pleural effusions. 3. Normal bibasilar airspace opacities, likely atelectasis. Reviewed, dictated and finalized at location A.
--- NOTE | 2020-07-08 15:33 | ECG_ITS ---
Measurements Intervals [place] Rate: 103 P: 57 WA: 136 QRS: 29 QRSD: 94 T: 117 QT: 373 QTc: 489 Interpretive Statements SINUS TACHYCARDIA LEFT ATRIAL ENLARGEMENT DELAYED PRECORDIAL R/S TRANSITION NONSPECIFIC ST & T-WAVE ABNORMALITY- HIGH LATERAL LEADS BORDERLINE ECG Electronically Signed On 07-08-2020 18:53:05 CDT by Lokesh Luna D.O.
[2020-07-08 16:00] LABS: Basophils Absolute Auto 0.1 K/mm3 (0.0-0.1); Basophils Percent Auto 0.8 % (0.2-1.2); Eosinophils Absolute Auto 0.3 K/mm3 (0-0.3); Eosinophils Percent Auto 4.4 % (0-4.4); Hematocrit 32.8 % (42.0-52.0); Hemoglobin 10.7 g/dL (14.0-18.0); Immature Granulocyte Absolute 0.01 K/mm3 (0.00-0.031); Immature Granulocyte Percent A 0.2 % (0-0.5); Lymphocytes Absolute Auto 0.55 K/mm3 (0.9-3.2); Lymphocytes Percent Auto 8.7 % (18.3-44.2); Mean Corpuscular HGB Conc 32.6 g/dl (32-36); Mean Corpuscular Hemoglobin 33.1 pg (26-34); Mean Corpuscular Volume 101.5 fl (80-100); Mean Platelet Volume 9.3 fl (7.4-10.4); Monocytes Absolute Auto 0.6 K/mm3 (0.1-0.6); Neutrophils Absolute Auto 4.8 K/mm3 (1.3-6.7); Neutrophils Percent Auto 75.9 % (45.5-73.1); Platelet Count Result 234 k/mm3 (150-375); Red Blood Count 3.23 M/mm3 (4.6-6.20); Red Cell Distribution Width 15.5 % (11.5-14.5); White Blood Count 6.3 K/mm3 (4.5-10.0)
[2020-07-08 16:10] LABS: Anion Gap 2 mmol/L (8-16); Blood Urea Nitrogen 25 mg/dL (9-20); Calcium 8.8 mg/dL (8.4-10.2); Carbon Dioxide 37 mmol/L (22-30); Chloride 95 mmol/L (98-107); Estimated CRCL calculation 23 ml/min; Estimated Glomerular Filt Rate 15; Glucose 130 mg/dL (75-110); INR 0.9; Potassium 4.7 mmol/L (3.4-5.0); Prothrombin Time 12.6 Seconds (11.1-14.7); Sodium 134 mmol/L (137-145)
[2020-07-08 16:11] LABS: Partial Thromboplastin Time 24.5 SECONDS (22.3-36.8)
[2020-07-08 16:22] LABS: NT Pro B Type Natriuretic Pept > 35000 pg/mL (5-100); Troponin I 0.034 ng/mL (0.000-0.034)
--- NOTE | 2020-07-08 17:01 | PC.NURSE ---
pt to ultrasound via stretcher.
--- NOTE | 2020-07-08 17:04 | ED.SOB ---
HPI - SOB/Dyspnea General Chief Complaint: Shortness of Breath/Dyspnea Stated Complaint: sob Time Seen by Provider: 07/08/20 16:36 Source: patient, RN notes reviewed and old records reviewed Mode of arrival: ambulatory Limitations: no limitations History of Present Illness HPI Narrative: This is a 39 year old male with history hypertension, DM, ESRD on dialysis who presents for evaluation of shortness of breath. He states he has been having difficulty breathing for the past 3-4 weeks. He states he is unable to lay flat at night due to shortness of breath. He denies fever, chest pain or cough. He states he has been going to dialysis Wednesday, wednesday, Wednesday as scheduled. He states he has gained 20 pounds over the past 3-4 months. He denies increase fluid in his legs. He was evaluated at [facility] yesterday and he was told he had an elevated d dimer and fluid on his lungs. He states they wanted to admit him and get him dialysis but he left. He went to dialysis today and he states he was unable to tolerate the entire treatment because he developed severe body cramping. His study lead is Dr. Page. Related Data Home Medications Medication Instructions Recorded Confirmed albuterol sulfate [Ventolin HFA] 2 puff INHALATION Q6H PRN 11/04/19 07/08/20 hydralazine 50 mg PO BID 11/04/19 07/08/20 metoprolol tartrate 50 mg PO BID 11/04/19 07/08/20 terazosin 2 mg PO BID 11/04/19 07/08/20 Lantus U-100 Insulin 15 unit SUBCUT QA 06/01/20 07/08/20 Lexapro 20 mg PO DAILY 06/01/20 07/08/20 Zoie-Zhanna Rx 1 tablet PO DAILY 06/01/20 07/08/20 amitriptyline 50 mg PO HS 06/01/20 07/08/20 calcium acetate 2 tablet PO TIDWMEAL 06/01/20 07/08/20 diazepam 5 mg PO DAILY 06/01/20 07/08/20 famotidine 20 mg PO BID 06/01/20 07/08/20 furosemide 80 mg PO BID 06/01/20 07/08/20 losartan 100 mg PO DAILY 06/01/20 07/08/20 metoclopramide HCl 5 mg PO TIDWMEAL 06/01/20 07/08/20 diazepam 5 mg PO HS 06/02/20 07/08/20 ergocalciferol (vitamin D2) 1,250 mcg PO WEEKLY 06/02/20 07/08/20 insulin lispro [Humalog U-100 See Rx Instructions .ROUTE .COMPLEX 06/02/20 07/08/20 Insulin] phenytoin sodium extended 100 mg PO TID 06/02/20 07/08/20 [Dilantin Extended] sevelamer HCl 800 mg PO TID 06/02/20 07/08/20 Allergies Allergy/AdvReac Type Severity Reaction Status Date / Time fluorescein Allergy Severe HIVES, BP Verified 06/01/20 15:12 DROPPED, SWELLING TONGUE Penicillins Allergy Unknown Unknown Verified 06/01/20 15:12 Sulfa (Sulfonamide Allergy Unknown Unknown Verified 06/01/20 15:12 Antibiotics) chlorpromazine Allergy Rash Verified 06/01/20 15:12 [From Thorazine] divalproex sodium AdvReac Confusion Verified 06/01/20 20:55 [From Depakote] Review of Systems Review of Systems: All systems reviewed & are unremarkable except as noted in HPI and below PMFSH Past Medical History Medical History (Updated 07/09/20 @ 01:17 by Mouna Ulrich MD) Anemia requiring transfusions Anxiety Asthma Depression End stage renal disease End stage renal disease on dialysis peritoneal dialysis Hiccups Hypertension Migraines Nausea and vomiting in adult Type 1 diabetes diagnosis at the age of 14 and has an insulin pump Surgical History Surgical History (Updated 06/02/20 @ 01:24 by Savi Oleary NP) History of appendectomy Hx of cholecystectomy Presence of peritoneal dialysis catheter Previous back surgery S/P dialysis catheter insertion Right upper chest Status post LASIK surgery of both eyes Family History Family History Mother Diabetes mellitus Cerebrovascular accident Father Hypertension Social History Social History (Updated 06/02/20 @ 01:25 by Savi Oleary NP) Social History: the patient lives with his . He is disabled. The patient stated that he is on a transplant list for a kidney as well as pancreas but is currently on hold due to hi
[2020-07-08] MEDS: hydrALAZINE HCL 20 MG/ML VIAL IV PUSH (17:59)
[2020-07-08] MEDS: METOPROLOL TARTRATE 50 MG TAB PO (18:00)
[2020-07-08] MEDS: ENOXAPARIN 80 MG/0.8 ML SYRINGE SUB-Q (18:33)
[2020-07-08] MEDS: FUROSEMIDE INJ 40 MG/4 ML VIAL IV PUSH (19:24)
[2020-07-08] MEDS: hydrALAZINE HCL 50 MG TABLET PO (19:42)
--- NOTE | 2020-07-08 21:20 | ADMGEN ---
This patient, Ari Zuniga, was admitted to IMU Room 205-02. Patient/family oriented to hospital policies and general routines including ID bracelet, bed and alarms, visiting hours, pain management, procedures, bathroom and other care routines, personal items, smoking policy, room service/diet, and visiting hours. Information on how to activate the Rapid Response Team has been discussed. Patient/Family are encouraged to report perceived risks to care and to ask questions if they do not understand what they are told or what they should do.
[2020-07-08] MEDS: TERAZOSIN HCL 1 MG CAPSULE 2 MG PO (21:27)
[2020-07-09] VITALS (33 sets, daily range): BP systolic 140–247; BP diastolic 47–125; PULSE 73–99; RESP 14–20; TEMP 36–37.1; O2SAT 90–99
--- NOTE | 2020-07-09 | ECHO_ITS ---
Patient Info Name: Ari Zuniga Age: 39 years : 1980 Gender: Male Ht: 73 in Wt: 177 lbs BSA: 2.03 m2 HR: 95 bpm BP: 210 / 82 mmHg Heart Rhythm: Sinus Rhythm Technical Quality: Good Exam Date: 07/09/2020 2:48 PM Exam Location: [facility] Pulmonary Patient Status: Inpatient Admit Date: 07/08/2020 Staff Ordering Physician: Antonio Sage MD Material Control Supervisor: Duke Calvin RDCS, RT Attending Provider: Sadneep Menon MD Referring Physician: Chu STEWART; Exam Type: CA echo doppler color flow Study Info Indications R06.02 - Shortness of breath Complete two-dimensional, color flow and Doppler transthoracic echocardiogram is performed. Strain analysis performed. Summary 1. Complete two-dimensional, color flow and Doppler transthoracic echocardiogram is performed. 2. Left ventricular systolic function is normal, estimated at 55%. 3. There is moderately increased left ventricular wall thickness. 4. The left ventricular diastolic function is normal. 5. Left ventricular chamber dimension is normal. 6. Left atrial chamber dimension is mildly enlarged. 7. There is trace mitral valve regurgitation. 8. There is trace tricuspid valve regurgitation. 9. Unable to estimate PA systolic pressure due to poor spectral resolution of tricuspid regurgitant jet velocity. 10. There is small pericardial effusion with slight invagination of the right atrial free wall suggestive of increased intrapericardial pressures. No evidence for tamponade physiology with mitral or tricuspid valve inflow velocity variation. Left Ventricle Left ventricular chamber dimension is normal. Left ventricular systolic function is normal, estimated at 55%. There is moderately increased left ventricular wall thickness. The left ventricular diastolic function is normal. Global longitudinal strain is mildly elevated at -13 %. Right Ventricle Right ventricular chamber dimension is normal. Right ventricular systolic function is normal. Left Atria Left atrial chamber dimension is mildly enlarged. Right Atria Right atrial chamber dimension is normal. Aortic Valve The aortic valve is trileaflet. There is no aortic valve stenosis. There is no aortic valve regurgitation. Pulmonic Valve The pulmonic valve is normal. There is trace pulmonic regurgitation. Mitral Valve The mitral valve has normal leaflets. There is trace mitral valve regurgitation. Tricuspid Valve The tricuspid valve leaflets are normal. There is trace tricuspid valve regurgitation. Unable to estimate PA systolic pressure due to poor spectral resolution of tricuspid regurgitant jet velocity. Pericardium/Pleural The pericardium appears normal. There is small pericardial effusion with slight invagination of the right atrial free wall suggestive of increased intrapericardial pressures. No evidence for tamponade physiology with mitral or tricuspid valve inflow velocity variation. Inferior Vena Cava Normal inferior vena cava with >50% collapse upon inspiration consistent with normal right atrial pressure, 5 mmHg. Aorta The aortic root size at the sinus of Valsalva is normal. Left Ventricular Outflow Tract Name Value Normal LVOT 2D LVOT Diameter
[2020-07-09] MEDS: METOPROLOL TARTRATE 50 MG TAB PO ×2 (01:18→08:15)
[2020-07-09] MEDS: PHENYTOIN SODIUM 100 MG CAP PO ×4 (01:18→20:44)
[2020-07-09] MEDS: hydrALAZINE HCL 50 MG TABLET PO ×2 (01:18→08:14)
[2020-07-09] MEDS: AMITRIPTYLINE HCL 25 MG TABLET 50 MG PO ×2 (01:19→20:44)
--- NOTE | 2020-07-09 01:33 | PM.IMHP ---
H&P: HPI History of Present Illness Date/Time: 07/09/20 01:33 Chief Complaint: Shortness of breath Narrative: This is a 39-year-old male with past medical history significant for end-stage renal disease on hemodialysis Wednesday, hypertension, insulin-dependent diabetes mellitus peripheral diabetic neuropathy. Patient had dialysis yesterday however he came to the emergency room complaining of shortness of breath according to patient this has been present for the last month or so patient has been compliant with his dialysis treatments he states that he has felt chills but no fevers no rigors no cough no sputum production. Preliminary workup was essentially nonrevealing for any acute abnormality. Patient was at [facility] where a D-dimer was elevated however due to patient's still been able to make some urine it was decided against CT angio for PE protocol to avoid contrast nephropathy. Bilateral lower extremity venous Dopplers were negative for DVTs. A V/Q scan will be done in the morning. Review of Systems Review of Systems: Narrative: Patient presented to the emergency room due to shortness of breath. Constitutional: Constitutional: Reports chills, Reports fatigue, Denies fever(s), Reports lethargy and Reports weakness Eyes: Eyes: Denies change in vision ENT: Denies nasal congestion, Denies nasal discharge and Denies nasal obstruction Cardiovascular: Cardiovascular: Denies rapid heart rate, Denies edema, Denies palpitations and Reports dyspnea Respiratory: Respiratory: Denies cough, Denies hemoptysis, Reports dyspnea and Denies wheezing Gastrointestinal: Gastrointestinal: Denies abdominal pain and Denies nausea Genitourinary: Genitourinary: Denies dysuria Musculoskeletal: Musculoskeletal: Denies deformity, Denies arthralgias and Denies joint swelling Integumentary/Breasts: Skin/Breast: Denies rash Neurologic: Denies focal weakness, Denies Sensory deficit (Neuro) and Reports paresthesias Psychiatric: Psychiatric: Denies no additional psychiatric complaints Endocrine: Endocrine: Denies no additional endocrine complaints Hematologic/Lymphatic: Hematologic/Lymphatic: Denies no additional hematologic/lymphatic complaints Allergic/Immunologic: Allergic/Immunologic: Denies no additional allergic/immunologic complaints [facility] Past Medical History Medical History (Updated 07/09/20 @ 01:17 by Mouna Ulrich MD) Anemia requiring transfusions Anxiety Asthma Depression End stage renal disease End stage renal disease on dialysis peritoneal dialysis Hiccups Hypertension Migraines Nausea and vomiting in adult Type 1 diabetes diagnosis at the age of 14 and has an insulin pump Surgical History Surgical History (Updated 06/02/20 @ 01:24 by Savi Oleary NP) History of appendectomy Hx of cholecystectomy Presence of peritoneal dialysis catheter Previous back surgery S/P dialysis catheter insertion Right upper chest Status post LASIK surgery of both eyes Family History Family History Mother Diabetes mellitus Cerebrovascular accident Father Hypertension Social History Social History (Updated 06/02/20 @ 01:25 by Savi Oleary NP) Social History: the patient lives with his . He is disabled. The patient stated that he is on a transplant list for a kidney as well as pancreas but is currently on hold due to his illness. He has no biological children but is has 1 child that he is raising. He adopted a child. The patient is a lifelong nonsmoker. He denies any alcohol marijuana or illicit drug use. His is the durable power deputy county attorney for healthcare. He desires to be a full code. Smoking status: Never smoker Alcohol intake: never Substance use: never Substance use type: does not use Last use: 04/23/2019 Gender identity (if verbalized by the patient): Male Spiritual care concerns: No Meds Home Medica
[2020-07-09] MEDS: ALPRAZolam (*CRX) 0.5 MG TABLET PO ×2 (02:27→20:45)
[2020-07-09 05:29] LABS: Potassium 5.5 mmol/L (3.4-5.0)
[2020-07-09 05:30] LABS: Basophils Absolute Auto 0.1 K/mm3 (0.0-0.1); Eosinophils Absolute Auto 0.3 K/mm3 (0-0.3); Hematocrit 31.5 % (42.0-52.0); Hemoglobin 10.2 g/dL (14.0-18.0); Immature Granulocyte Absolute 0.02 K/mm3 (0.00-0.031); Immature Granulocyte Percent A 0.4 % (0-0.5); Lymphocytes Absolute Auto 0.77 K/mm3 (0.9-3.2); Lymphocytes Percent Auto 15.3 % (18.3-44.2); Mean Corpuscular HGB Conc 32.4 g/dl (32-36); Mean Corpuscular Hemoglobin 32.8 pg (26-34); Mean Corpuscular Volume 101.3 fl (80-100); Mean Platelet Volume 9.7 fl (7.4-10.4); Monocytes Absolute Auto 0.6 K/mm3 (0.1-0.6); Monocytes Percent Auto 11.7 % (2.6-8.5); Neutrophils Absolute Auto 3.3 K/mm3 (1.3-6.7); Neutrophils Percent Auto 65.6 % (45.5-73.1); Platelet Count Result 214 k/mm3 (150-375); Red Blood Count 3.11 M/mm3 (4.6-6.20); Red Cell Distribution Width 15.3 % (11.5-14.5)
[2020-07-09 05:34] LABS: Anion Gap 2 mmol/L (8-16); Blood Urea Nitrogen 31 mg/dL (9-20); Calcium 8.5 mg/dL (8.4-10.2); Carbon Dioxide 37 mmol/L (22-30); Chloride 95 mmol/L (98-107); Estimated CRCL calculation 19 ml/min; Estimated Glomerular Filt Rate 11; Glucose 192 mg/dL (75-110); Sodium 134 mmol/L (137-145)
--- NOTE | 2020-07-09 06:49 | PM.CNNEP ---
Assessment and Plan Assessment and plan (1) End stage renal disease: Code(s): N18.6 - End stage renal disease Status: Chronic Assessment and Plan: Ari has end-stage renal disease. He gets dialysis Wednesdays and Fridays. He received dialysis yesterday but did not get to his dry weight. He needs more fluid off today. I have arranged for dialysis to come in and do a treatment. Because he cramps he might do better with dry ultrafiltration to get extra fluid off; however, his potassium is 5.5 this morning so will do a regular treatment. He is in a difficult situation because he cramps so much that they cannot get to his dry weight. Perhaps he needs a 4th treatment per week. He does make some urine and so is already on furosemide 80 mg b.i.d.. To see if we can get a little extra fluid off using his kidneys. His potassium is high so we will use a 2 potassium bath. (2) Pulmonary edema: Code(s): J81.1 - Chronic pulmonary edema Status: Acute Assessment and Plan: The patient has volume overload. Most likely this is because he is not getting to his dry weight in dialysis. We will check a 2D echo be sure he does not have heart failure as well. He has a positive D-dimer. It is relatively unlikely that he has a pulmonary embolus. He did receive some Lovenox from the ER last night to tide him over. Will check another chest x-ray this afternoon after dialysis. If it is cleared substantially then we can get a V/Q scan. Be nice if we could avoid giving contrast because he still makes urine and preserving residual renal function is important for dialysis patients. (3) Hypertension: Code(s): I10 - Essential (primary) hypertension Status: Chronic Assessment and Plan: The patient has hypertension. This is mostly because of his volume overload. Will get him back on his home medication regimen and remove fluid in dialysis today. (4) Elevated liver enzymes: Code(s): R74.8 - Abnormal levels of other serum enzymes Status: Acute Assessment and Plan: Patient has an elevated AST. This is probably related to volume overload. (5) Hyponatremia: Code(s): E87.1 - Hypo-osmolality and hyponatremia Status: Acute Assessment and Plan: Sodium is slightly low. This is due to his high sugar. (6) Erythropoietin deficiency anemia: Code(s): D63.1 - Anemia in chronic kidney disease Status: Acute Assessment and Plan: The patient has a hemoglobin just above 10. This is target. Because his blood pressure is high will hold off on Epogen today. (7) Renal osteodystrophy: Code(s): N25.0 - Renal osteodystrophy Status: Acute Assessment and Plan: Will check a phosphorus level in the morning (8) Type 1 diabetes: Code(s): E10.9 - Type 1 diabetes mellitus without complications Status: Chronic Assessment and Plan: On Accu-Cheks and sliding-scale insulin History of Present Illness Reason for Consult Consult date: 07/09/20 Chief Complaint Chief complaint: Malignant hypertension, ESRD on dialysis, History of Present Illness Narrative: Ari is a very pleasant 39-year-old gentleman who has multiple medical problems including diabetes, hypertension, end-stage renal disease on dialysis 3 times a week, anemia, renal osteodystrophy, who came into the hospital because of shortness of breath. He has had problems with shortness of breath often on over the last few months. Dialysis has a problem getting fluid off enough to get to his dry weight because he cramps frequently. He went to dialysis on Wednesday and was feeling fine. He then became will short of breath over the weekend gradually. He went to dialysis Wednesday. They tried to get fluid off but did not get down to his dry weight. He was still short of breath after dialysis so decided to come to the emergency room. He has not had any fevers chills or cough. No ch
[2020-07-09 08:00] LABS: Glucose Point of Care 198 (65-105)
[2020-07-09] MEDS: FUROSEMIDE INJ 100 MG/10 ML VIAL 80 MG IV PUSH ×2 (08:13→17:22)
[2020-07-09] MEDS: METOCLOPRAMIDE HCL 5 MG TABLET PO ×3 (08:14→17:22)
[2020-07-09] MEDS: ESCITALOPRAM OXALATE 10 MG TABLET 20 MG PO (08:14)
[2020-07-09] MEDS: PANTOPRAZOLE 40 MG TABLET PO ×2 (08:14→20:45)
[2020-07-09] MEDS: CALCIUM ACETATE 667 MG TABLET 1334 MG PO ×3 (08:14→16:04)
[2020-07-09] MEDS: FAMOTIDINE 20 MG TABLET PO ×2 (08:14→17:22)
[2020-07-09] MEDS: INSULIN GLARGINE (*BKC) 100 UNITS/ML 15 UNITS SUB-Q (08:15)
[2020-07-09] MEDS: LOSARTAN POTASSIUM 100 MG TABLET PO (08:15)
--- NOTE | 2020-07-09 08:38 | PC.NURSE ---
Patient to dialysis via bed. Report given to GISELLE Crocker.
[2020-07-09 10:19] LABS: Hepatitis B Surface Antigen Negative (Negative)
[2020-07-09 10:41] LABS: Hepatitis B Surface Anti Res Positive
[2020-07-09 12:30] LABS: Glucose Point of Care 93 (65-105)
--- NOTE | 2020-07-09 12:37 | PC.NURSE ---
Patient returned from dialysis via bed. Report received from GISELLE Crocker.
[2020-07-09 14:04] LABS: D Dimer 1.58 ug/mL (<0.48)
[2020-07-09] MEDS: VITAMIN B CMPLX/VIT C/FOLIC AC 1 CAPSULE 1 CAP PO (14:15)
[2020-07-09] MEDS: TERAZOSIN HCL 1 MG CAPSULE 2 MG PO ×2 (14:15→20:44)
[2020-07-09] MEDS: cloNIDine HCL 0.2 MG TABLET PO (14:15)
[2020-07-09 15:54] LABS: Glucose Point of Care 115 mg/dl (65-105)
--- NOTE | 2020-07-09 16:38 | PM.IMPN ---
Progress Note: A&P Assessment and Plan (1) Dyspnea: Code(s): R06.00 - Dyspnea, unspecified Status: Acute Assessment and Plan: Patient is compliant with his hemodialysis Last hemodialysis treatment was on Wednesday had 4 L removed Venous Dopplers negative for DVT V/Q scan in am Supportive care 07/09/20 16:38 Chief Complaint: Shortness of breath Narrative: This is a 39-year-old male with past medical history significant for end-stage renal disease on hemodialysis Wednesday, hypertension, insulin-dependent diabetes mellitus peripheral diabetic neuropathy. Patient had dialysis yesterday however he came to the emergency room complaining of shortness of breath according to patient this has been present for the last month or so patient has been compliant with his dialysis treatments he states that he has felt chills but no fevers no rigors no cough no sputum production. Preliminary workup was essentially nonrevealing for any acute abnormality. Patient was at [facility] where a D-dimer was elevated however due to patient's still been able to make some urine it was decided against CT angio for PE protocol to avoid contrast nephropathy. Bilateral lower extremity venous Dopplers were negative for DVTs. A V/Q scan will be done in the morning. 07/09 Patient with end-stage renal disease on hemodialysis Wednesday and Wednesday, patient had received hemodialysis yesterday however he presented emergency department with a complaint shortness of breath, patient is seen by ice crusher, patient develops cramping during dialysis and unable to complete his dialysis, his ice crusher recommending ultrafiltration and remove the fluid no electrolyte however today's potassium is 5.5 and patient will have regular hemodialysis, because of his persistent shortness of breath there was a concerned patient may have a PE, his is D-dimer is elevated, unable to do CTA as patient is making some urine and did not want to expose him to contrast, his lower extremity Doppler are negative for DVT, however today patient on room air, does not appear any respiratory distress I do not suspect patient has a PE. Is checks x-ray is clear, If needed we could do V/Q which will order and further recommendation to follow. (2) End stage renal disease: Code(s): N18.6 - End stage renal disease Status: Chronic Assessment and Plan: On hemodialysis Wednesday Nephrology consult Continue to monitor Supportive care (3) Asthma: Code(s): J45.909 - Unspecified asthma, uncomplicated Status: Chronic Assessment and Plan: Patient not actively wheezing On albuterol sulfate puffs Q 6 p.r.n. Continue to monitor (4) Hypertension: Code(s): I10 - Essential (primary) hypertension Status: Chronic Assessment and Plan: Restart home meds Continue to monitor (5) Type 1 diabetes: Code(s): E10.9 - Type 1 diabetes mellitus without complications Status: Chronic Assessment and Plan: Continue insulin patient is on lispro on Lantus Accu-Cheks AC and HS 1800 calorie restricted diet carb consistent (6) Anemia requiring transfusions: Code(s): D64.9 - Anemia, unspecified Status: Chronic Assessment and Plan: Transfuse as needed Likely secondary to kidney disease Continue to monitor Subjective Date/time seen: 07/09/20 16:38 Chief Complaint: Shortness of breath Narrative: This is a 39-year-old male with past medical history significant for end-stage renal disease on hemodialysis Wednesday, hypertension, insulin-dependent diabetes mellitus peripheral diabetic neuropathy. Patient had dialysis yesterday however he came to the emergency room complaining of shortness of breath according to patient this has been present for the last month or so patient has been compliant with his dialysis treatments he states that he has felt chills but no fevers no rigors no cough no
[2020-07-09] MEDS: hydrALAZINE HCL 50 MG TABLET 100 MG PO (17:22)
[2020-07-09 19:54] LABS: Glucose Point of Care 122 mg/dl (65-105)
[2020-07-09] MEDS: METOPROLOL TARTRATE 50 MG TAB 100 MG PO (20:48)
[2020-07-10] VITALS (29 sets, daily range): BP systolic 144–195; BP diastolic 85–122; PULSE 77–92; RESP 16–20; TEMP 35.9–37; O2SAT 92–100
[2020-07-10 05:32] LABS: Hematocrit 30.9 % (42.0-52.0); Hemoglobin 9.9 g/dL (14.0-18.0); Mean Corpuscular Hemoglobin 32.2 pg (26-34); Mean Corpuscular Volume 100.7 fl (80-100); Mean Platelet Volume 9.5 fl (7.4-10.4); Platelet Count Result 233 k/mm3 (150-375); Red Blood Count 3.07 M/mm3 (4.6-6.20); White Blood Count 4.6 K/mm3 (4.5-10.0)
[2020-07-10 05:45] LABS: Albumin Level 2.8 g/dL (3.5-5.1); Anion Gap 4 mmol/L (8-16); Blood Urea Nitrogen 22 mg/dL (9-20); Calcium 8.6 mg/dL (8.4-10.2); Carbon Dioxide 36 mmol/L (22-30); Chloride 96 mmol/L (98-107); Estimated CRCL calculation 23 ml/min; Estimated Glomerular Filt Rate 14; Glucose 175 mg/dL (75-110); Phosphorus 5.3 mg/dL (2.5-4.5); Potassium 4.8 mmol/L (3.4-5.0); Sodium 136 mmol/L (137-145)
[2020-07-10] MEDS: PHENYTOIN SODIUM 100 MG CAP PO ×3 (08:53→20:56)
[2020-07-10] MEDS: PANTOPRAZOLE 40 MG TABLET PO ×2 (08:53→20:56)
[2020-07-10] MEDS: ESCITALOPRAM OXALATE 10 MG TABLET 20 MG PO (08:54)
[2020-07-10] MEDS: CALCIUM ACETATE 667 MG TABLET 1334 MG PO ×3 (08:54→16:59)
[2020-07-10] MEDS: TERAZOSIN HCL 1 MG CAPSULE 2 MG PO ×2 (08:54→20:56)
[2020-07-10] MEDS: VITAMIN B CMPLX/VIT C/FOLIC AC 1 CAPSULE 1 CAP PO (08:54)
[2020-07-10] MEDS: FUROSEMIDE INJ 100 MG/10 ML VIAL 80 MG IV PUSH ×2 (08:54→17:00)
[2020-07-10] MEDS: METOCLOPRAMIDE HCL 5 MG TABLET PO ×3 (08:54→17:01)
[2020-07-10] MEDS: hydrALAZINE HCL 50 MG TABLET 100 MG PO ×3 (08:55→17:00)
[2020-07-10] MEDS: FAMOTIDINE 20 MG TABLET PO ×2 (08:55→17:01)
[2020-07-10] MEDS: INSULIN GLARGINE (*BKC) 100 UNITS/ML 15 UNITS SUB-Q (08:55)
[2020-07-10] MEDS: LOSARTAN POTASSIUM 100 MG TABLET PO (08:55)
[2020-07-10] MEDS: METOPROLOL TARTRATE 50 MG TAB 100 MG PO ×2 (08:57→20:53)
[2020-07-10 09:14] LABS: Glucose Point of Care 178 mg/dl (65-105)
--- NOTE | 2020-07-10 10:54 | PM.PNNEP ---
Progress Note: A&P Assessment and Plan (1) End stage renal disease: Code(s): N18.6 - End stage renal disease Status: Chronic Assessment and Plan: Ari has end-stage renal disease. He gets dialysis Wednesdays and Fridays. due for dialysis today. Potassium okay. Will use a 3K bath. (2) Pulmonary edema: Code(s): J81.1 - Chronic pulmonary edema Status: Acute Assessment and Plan: The patient has volume overload. Most likely this is because he is not getting to his dry weight in dialysis. He had an echocardiogram which showed normal LV function however he does have some diastolic dysfunction and a small pericardial effusion. Discussed with the patient at length. He had the nurse stop taking fluid off after 2L were removed. This is because he tends to cramp because of fluid removal. The patient still has swelling and still has fluid on his chest x-ray. In addition his blood pressure is high. These are all signs of volume overload. He came in the hospital because of fluid and so we should try to get as much office possible. Will give some albumin to see if we can get more fluid off. Perhaps 4 days a week dialysis might be prudent in this patient if he cannot get enough fluid off with the 3 days a week schedule he is on. (3) Hypertension: Code(s): I10 - Essential (primary) hypertension Status: Chronic Assessment and Plan: The patient has hypertension. This is mostly because of his volume overload. He had meds adjusted to what his true outpatient doses are. Will remove more fluid today. We may need a dry ultrafiltration tomorrow. (4) Elevated liver enzymes: Code(s): R74.8 - Abnormal levels of other serum enzymes Status: Acute Assessment and Plan: Patient has an elevated AST. This is probably related to volume overload. Check another tomorrow. (5) Hyponatremia: Code(s): E87.1 - Hypo-osmolality and hyponatremia Status: Acute Assessment and Plan: Sodium is slightly low. This is due to his high sugar. (6) Erythropoietin deficiency anemia: Code(s): D63.1 - Anemia in chronic kidney disease Status: Acute Assessment and Plan: The patient has a hemoglobin just above 10. This is target. Because his blood pressure is high will hold off on Epogen today again. (7) Renal osteodystrophy: Code(s): N25.0 - Renal osteodystrophy Status: Acute Assessment and Plan: Will check a phosphorus level in the morning (8) Type 1 diabetes: Code(s): E10.9 - Type 1 diabetes mellitus without complications Status: Chronic Assessment and Plan: On Accu-Cheks and sliding-scale insulin Subjective Date/time seen: 07/10/20 10:54 Interval history: Patient is comfortably sitting up at the side of the bed. No shortness of breath due for dialysis today Review of Systems Cardiovascular: Cardiovascular: Reports no additional cardiovascular complaints Respiratory: Respiratory: Reports no additional respiratory complaints Gastrointestinal: Gastrointestinal: Reports no additional gastrointestinal complaints Genitourinary: Genitourinary: Reports no additional male genitourinary complaints Exam Narrative: Exam Narrative: WDWN in NAD skin no rash or subcu nodules head ncat lungs clear cor reg no rub or gallop abd BS+ nontender and soft ext 1+ edema. Objective Data Vital Signs Vital Signs: Vital Signs - 24 hr 07/09/20 11:00 07/09/20 11:15 07/09/20 11:30 Temperature Pulse Rate 87 94 93 Respiratory Rate Blood Pressure 202/87 H 164/123 H 204/81 H Pulse Oximetry 07/09/20 12:00 07/09/20 12:30 07/09/20 12:39 Temperature 36.9 C 37.0 C Pulse Rate 93 92 Respiratory Rate 18 20 Blood Pressure 199/106 H 210/82 H Pulse Oximetry 91 94 07/09/20 14:00 07/09/20 16:00 07/09/20 16:20 Temperature 36.8 C 36.8 C Pulse Rate 95 94 97 Respi
[2020-07-10 11:30] LABS: Glucose Point of Care 266 mg/dl (65-105)
[2020-07-10] MEDS: INSULIN ASPART (*BKC) 100 UNITS/ML SUB-Q (11:48)
--- NOTE | 2020-07-10 13:31 | PM.EVENT ---
Event Note Event Note Event Note: Patient is on dialysis and tolerating it well. fluid coming off well so far. He was seen at 12:50 p.m.
--- NOTE | 2020-07-10 14:58 | P.PNIM_ITS ---
Progress Note: A&P Assessment and Plan (1) Dyspnea: Qualifiers: Dyspnea type: shortness of breath Qualified Code(s): R06.02 - Shortness of breath Code(s): R06.00 - Dyspnea, unspecified Status: Acute Assessment and Plan: * Patient is compliant with his hemodialysis * Last hemodialysis treatment was on today and 2.5L was removed * Venous Dopplers negative for DVT * 2L for shortness of breath * keep sats above 92% * Patient stated that the shortness of breath is getting better with dialysis * Trend saturation * Supportive care (2) End stage renal disease: Code(s): N18.6 - End stage renal disease Status: Chronic Assessment and Plan: * On hemodialysis Wednesday * Nephrology consult, recommendations appreciated * Trend labs * Labs in the am * Dialysis to be managed by nephrology * Continue home lasix 80mg PO BID * Tamsulosin 0.2 PO daily * Supportive care (3) Hypertension: Qualifiers: Hypertension type: essential hypertension Qualified Code(s): I10 - Essential (primary) hypertension Code(s): I10 - Essential (primary) hypertension Status: Chronic Assessment and Plan: * Current blood pressure 158/90 * Blood pressure getting better with fluid removal * Continue home losartan 100mg PO daily * Continue home metoprolol 100 PO daily, * Trend blood pressures * Make medication adjustments as needed (4) Type 1 diabetes: Qualifiers: Chronic kidney disease stage: on chronic dialysis Diabetes mellitus complication detail: with chronic kidney disease Diabetes mellitus complication status: with kidney complications Qualified Code(s): E10.22 - Type 1 diabetes mellitus with diabetic chronic kidney disease; N18.6 - End stage renal disease; Z99.2 - Dependence on renal dialysis Code(s): E10.9 - Type 1 diabetes mellitus without complications Status: Chronic Assessment and Plan: * Glucose on labs is 175 * Continue insulin patient is on lispro on Lantus * Accu-Cheks AC and HS * Sliding scale and lantus ordered * 1800 calorie restricted diet carb consistent (5) Anemia requiring transfusions: Code(s): D64.9 - Anemia, unspecified Status: Chronic Assessment and Plan: * Hgb 9.9 and HCt 30.9 today on labs * Transfuse as needed * Likely secondary to kidney disease * Trend H&H * Labs in the am (6) Asthma: Qualifiers: Asthma complication type: uncomplicated Asthma persistence: intermittent Asthma severity: mild Qualified Code(s): J45.20 - Mild intermittent asthma, uncomplicated Code(s): J45.909 - Unspecified asthma, uncomplicated Status: Chronic Assessment and Plan: * Patient not actively wheezing * On albuterol sulfate puffs Q 6 p.r.n. (7) Anxiety and depression: Code(s): F41.9 - Anxiety disorder, unspecified; F32.9 - Major depressive disorder, single episode, unspecified Status: Acute Assessment and Plan: * Continue home Elavil 50 mg p.o. * Alprazolam 0.5mg Po HS * Trend mood Time Spent With Patient Time with patient: 25 - 35 minutes Subjective Date/time seen: 07/10/20 14:58 patient is a 39-year-old male with history of diabetes, hypertension, end-stage renal disease who was seen in the ED for shortness of breath. Patient stated that he goes to [facility]
--- NOTE | 2020-07-10 14:58 | PM.IMPN ---
Progress Note: A&P Assessment and Plan (1) Dyspnea: Qualifiers: Dyspnea type: shortness of breath Qualified Code(s): R06.02 - Shortness of breath Code(s): R06.00 - Dyspnea, unspecified Status: Acute Assessment and Plan: Patient is compliant with his hemodialysis Last hemodialysis treatment was on today and 2.5L was removed Venous Dopplers negative for DVT 2L for shortness of breath keep sats above 92% Patient stated that the shortness of breath is getting better with dialysis Trend saturation Supportive care (2) End stage renal disease: Code(s): N18.6 - End stage renal disease Status: Chronic Assessment and Plan: On hemodialysis Wednesday Nephrology consult, recommendations appreciated Trend labs Labs in the am Dialysis to be managed by nephrology Continue home lasix 80mg PO BID Tamsulosin 0.2 PO daily Supportive care (3) Hypertension: Qualifiers: Hypertension type: essential hypertension Qualified Code(s): I10 - Essential (primary) hypertension Code(s): I10 - Essential (primary) hypertension Status: Chronic Assessment and Plan: Current blood pressure 158/90 Blood pressure getting better with fluid removal Continue home losartan 100mg PO daily Continue home metoprolol 100 PO daily, Trend blood pressures Make medication adjustments as needed (4) Type 1 diabetes: Qualifiers: Chronic kidney disease stage: on chronic dialysis Diabetes mellitus complication detail: with chronic kidney disease Diabetes mellitus complication status: with kidney complications Qualified Code(s): E10.22 - Type 1 diabetes mellitus with diabetic chronic kidney disease; N18.6 - End stage renal disease; Z99.2 - Dependence on renal dialysis Code(s): E10.9 - Type 1 diabetes mellitus without complications Status: Chronic Assessment and Plan: Glucose on labs is 175 Continue insulin patient is on lispro on Lantus Accu-Cheks AC and HS Sliding scale and lantus ordered 1800 calorie restricted diet carb consistent (5) Anemia requiring transfusions: Code(s): D64.9 - Anemia, unspecified Status: Chronic Assessment and Plan: Hgb 9.9 and HCt 30.9 today on labs Transfuse as needed Likely secondary to kidney disease Trend H&H Labs in the am (6) Asthma: Qualifiers: Asthma complication type: uncomplicated Asthma persistence: intermittent Asthma severity: mild Qualified Code(s): J45.20 - Mild intermittent asthma, uncomplicated Code(s): J45.909 - Unspecified asthma, uncomplicated Status: Chronic Assessment and Plan: Patient not actively wheezing On albuterol sulfate puffs Q 6 p.r.n. (7) Anxiety and depression: Code(s): F41.9 - Anxiety disorder, unspecified; F32.9 - Major depressive disorder, single episode, unspecified Status: Acute Assessment and Plan: Continue home Elavil 50 mg p.o. Alprazolam 0.5mg Po HS Trend mood Time Spent With Patient Time with patient: 25 - 35 minutes Subjective Date/time seen: 07/10/20 14:58 patient is a 39-year-old male with history of diabetes, hypertension, end-stage renal disease who was seen in the ED for shortness of breath. Patient stated that he goes to dialysis Wednesday. His last dialysis session he was having severe cramping in his legs, he contributed that to them trying to take off too much fluid. He stated they were trying to take off 4 L. He has not had a cramping when they are trying to take off 2 L. patient told me that they are trying to take off just 2.5 L today. Patient also stated that he is on a fluid restriction that was started about 5 weeks ago. He does not know the amount of the fluid restriction but does it is low. Patient also stated that he used to do PD at home and was [facility]
[2020-07-10 17:04] LABS: Glucose Point of Care 72 mg/dl (65-105)
[2020-07-10] MEDS: AMITRIPTYLINE HCL 25 MG TABLET 50 MG PO (20:56)
[2020-07-10] MEDS: ALPRAZolam (*CRX) 0.5 MG TABLET PO (20:56)
[2020-07-10 21:28] LABS: Glucose Point of Care 149 mg/dl (65-105)
[2020-07-11] VITALS (25 sets, daily range): BP systolic 140–199; BP diastolic 90–122; PULSE 68–91; RESP 16–18; TEMP 35.8–36.8; O2SAT 95–99
[2020-07-11 05:43] LABS: Hematocrit 31.3 % (42.0-52.0); Hemoglobin 10.1 g/dL (14.0-18.0); Mean Corpuscular HGB Conc 32.3 g/dl (32-36); Mean Corpuscular Hemoglobin 32.8 pg (26-34); Mean Corpuscular Volume 101.6 fl (80-100); Mean Platelet Volume 9.4 fl (7.4-10.4); Platelet Count Result 218 k/mm3 (150-375); Red Blood Count 3.08 M/mm3 (4.6-6.20); Red Cell Distribution Width 14.7 % (11.5-14.5); White Blood Count 4.9 K/mm3 (4.5-10.0)
[2020-07-11 06:01] LABS: Alanine Aminotransferase 33 U/L (4-50); Alkaline Phosphatase 240 U/L (38-126); Anion Gap 2 mmol/L (8-16); Aspartate Amino Transferase 29 U/L (17-59); Bilirubin,Total 0.2 mg/dL (0.2-1.3); Blood Urea Nitrogen 22 mg/dL (9-20); Calcium 8.4 mg/dL (8.4-10.2); Carbon Dioxide 35 mmol/L (22-30); Chloride 96 mmol/L (98-107); Estimated CRCL calculation 25 ml/min; Estimated Glomerular Filt Rate 16; Glucose 228 mg/dL (75-110); Phosphorus 4.6 mg/dL (2.5-4.5); Potassium 4.8 mmol/L (3.4-5.0); Sodium 133 mmol/L (137-145)
--- NOTE | 2020-07-11 07:32 | PM.IMPN ---
Progress Note: A&P Assessment and Plan (1) Dyspnea: Qualifiers: Dyspnea type: shortness of breath Qualified Code(s): R06.02 - Shortness of breath Code(s): R06.00 - Dyspnea, unspecified Status: Acute Assessment and Plan: Patient is compliant with his hemodialysis Last hemodialysis treatment was on yesterday and 2.5L was removed Venous Dopplers negative for DVT On room air saturation were 98% Supplemental oxygen to keep sats above 92% Patient stated that the shortness of breath is getting better with dialysis Trend saturation Supportive care (2) End stage renal disease: Code(s): N18.6 - End stage renal disease Status: Chronic Assessment and Plan: On hemodialysis Wednesday Nephrology consult, recommendations appreciated Trend labs Labs in the am Dialysis to be managed by nephrology Continue home lasix 80mg PO BID Tamsulosin 0.2 PO daily Supportive care (3) Hypertension: Qualifiers: Hypertension type: essential hypertension Qualified Code(s): I10 - Essential (primary) hypertension Code(s): I10 - Essential (primary) hypertension Status: Chronic Assessment and Plan: Current blood pressure 165/98 Blood pressure getting better with fluid removal Continue home losartan 100mg PO daily Continue home metoprolol 100 PO daily, Trend blood pressures Make medication adjustments as needed (4) Type 1 diabetes: Qualifiers: Diabetes mellitus complication status: with kidney complications Diabetes mellitus complication detail: with chronic kidney disease Chronic kidney disease stage: on chronic dialysis Qualified Code(s): E10.22 - Type 1 diabetes mellitus with diabetic chronic kidney disease; N18.6 - End stage renal disease; Z99.2 - Dependence on renal dialysis Code(s): E10.9 - Type 1 diabetes mellitus without complications Status: Chronic Assessment and Plan: Glucose on labs is elevated at 228 Continue insulin patient is on lispro on Lantus Accu-Cheks AC and HS Sliding scale and lantus ordered Renal dialysis diet (5) Anemia requiring transfusions: Code(s): D64.9 - Anemia, unspecified Status: Chronic Assessment and Plan: Hgb 10.1 and HCt 31.3 today on labs Been stable this admission Transfuse as needed Likely secondary to kidney disease Trend H&H Labs in the am (6) Asthma: Qualifiers: Asthma severity: mild Asthma persistence: intermittent Asthma complication type: uncomplicated Qualified Code(s): J45.20 - Mild intermittent asthma, uncomplicated Code(s): J45.909 - Unspecified asthma, uncomplicated Status: Chronic Assessment and Plan: Patient not actively wheezing On albuterol sulfate puffs Q 6 p.r.n. Productive cough with clear sputum (7) Anxiety and depression: Code(s): F41.9 - Anxiety disorder, unspecified; F32.9 - Major depressive disorder, single episode, unspecified Status: Acute Assessment and Plan: Continue home Elavil 50 mg p.o. Alprazolam 0.5mg Po HS Trend mood (8) Seizure disorder: Code(s): G40.909 - Epilepsy, unspecified, not intractable, without status epilepticus Status: Acute Assessment and Plan: Patient stated that the seizures started about 3 months ago Continue home Depakene 250mg Q8hr and Dilantin 100mg PO TID Monitor for seizure activity Subjective Date/time seen: 07/11/20 07:32 patient is a 39-year-old male with history of diabetes, hypertension, end-stage renal disease who was seen in the ED for shortness of breath. Patient stated that he goes to dialysis Wednesday. Yesterday were able to take off 2.5 L. He is sating okay current blood pressure and dialysis was 165/98. Patient also stated he was having cough with sputum production that is clear in
[2020-07-11] MEDS: CALCIUM ACETATE 667 MG TABLET 1334 MG PO ×2 (07:53→13:15)
[2020-07-11 07:54] LABS: Glucose Point of Care 242 mg/dl (65-105)
[2020-07-11] MEDS: hydrALAZINE HCL 50 MG TABLET 100 MG PO ×2 (07:55→13:15)
[2020-07-11] MEDS: FAMOTIDINE 20 MG TABLET PO (07:55)
[2020-07-11] MEDS: TERAZOSIN HCL 1 MG CAPSULE 2 MG PO (07:55)
[2020-07-11] MEDS: PANTOPRAZOLE 40 MG TABLET PO (07:55)
[2020-07-11] MEDS: PHENYTOIN SODIUM 100 MG CAP PO ×2 (07:55→13:15)
[2020-07-11] MEDS: ESCITALOPRAM OXALATE 10 MG TABLET 20 MG PO (07:55)
[2020-07-11] MEDS: METOCLOPRAMIDE HCL 5 MG TABLET PO ×2 (07:55→13:15)
[2020-07-11] MEDS: LOSARTAN POTASSIUM 100 MG TABLET PO (07:56)
[2020-07-11] MEDS: METOPROLOL TARTRATE 50 MG TAB 100 MG PO (07:58)
[2020-07-11] MEDS: VITAMIN B CMPLX/VIT C/FOLIC AC 1 CAPSULE 1 CAP PO (07:58)
[2020-07-11] MEDS: INSULIN GLARGINE (*BKC) 100 UNITS/ML 15 UNITS SUB-Q (08:01)
[2020-07-11] MEDS: INSULIN ASPART (*BKC) 100 UNITS/ML SUB-Q (08:02)
[2020-07-11] MEDS: FUROSEMIDE INJ 100 MG/10 ML VIAL 80 MG IV PUSH (08:16)
--- NOTE | 2020-07-11 08:30 | PC.NURSE ---
Health Technician called [facility] answering service to schedule dialysis as ordered today.
--- NOTE | 2020-07-11 08:45 | PC.NURSE ---
Pt to dialysis per bed report given to Obi DESAI
--- NOTE | 2020-07-11 09:01 | PM.PNNEP ---
Progress Note: A&P Assessment and Plan (1) End stage renal disease: Code(s): N18.6 - End stage renal disease Status: Chronic Assessment and Plan: Ari has end-stage renal disease. He gets dialysis Wednesdays and Fridays. he still seems to have excess volume. His blood pressure still a bit high. Will do a dry ultrafiltration today. (2) Pulmonary edema: Code(s): J81.1 - Chronic pulmonary edema Status: Acute Assessment and Plan: The patient has volume overload. Will do another dry ultrafiltration today. After this he can be discharged if okay with everybody else. (3) Hypertension: Qualifiers: Hypertension type: essential hypertension Qualified Code(s): I10 - Essential (primary) hypertension Code(s): I10 - Essential (primary) hypertension Status: Chronic Assessment and Plan: The patient has hypertension. This is mostly because of his volume overload. He had meds adjusted to what his true outpatient doses are. Will remove more fluid today. (4) Elevated liver enzymes: Code(s): R74.8 - Abnormal levels of other serum enzymes Status: Acute Assessment and Plan: Patient had an elevated AST. Improved with fluid removal (5) Hyponatremia: Code(s): E87.1 - Hypo-osmolality and hyponatremia Status: Acute Assessment and Plan: Sodium is slightly low. This is due to his high sugar. (6) Erythropoietin deficiency anemia: Code(s): D63.1 - Anemia in chronic kidney disease Status: Acute Assessment and Plan: will give some EPO today. (7) Renal osteodystrophy: Code(s): N25.0 - Renal osteodystrophy Status: Acute Assessment and Plan: Phosphorus in range for dialysis patient. (8) Type 1 diabetes: Qualifiers: Diabetes mellitus complication status: with kidney complications Diabetes mellitus complication detail: with chronic kidney disease Chronic kidney disease stage: on chronic dialysis Qualified Code(s): E10.22 - Type 1 diabetes mellitus with diabetic chronic kidney disease; N18.6 - End stage renal disease; Z99.2 - Dependence on renal dialysis Code(s): E10.9 - Type 1 diabetes mellitus without complications Status: Chronic Assessment and Plan: On Accu-Cheks and sliding-scale insulin Subjective Date/time seen: 07/11/20 09:01 Interval history: Patient is comfortably sitting up at the side of the bed. No shortness of breath The still has some swelling eager for discharge Exam Narrative: Exam Narrative: WDWN in NAD skin no rash or subcu nodules head ncat lungs decreased breath sounds at the bases cor reg no rub or gallop abd BS+ nontender and soft ext 1+ edema. Objective Data Vital Signs Vital Signs: Vital Signs - 24 hr 07/10/20 10:00 07/10/20 10:23 07/10/20 12:00 Temperature 35.9 C L Pulse Rate 88 84 Pulse Rate [Right] Respiratory Rate 18 Blood Pressure 192/122 H Pulse Oximetry 93 100 07/10/20 12:15 07/10/20 12:30 07/10/20 12:45 Temperature Pulse Rate 82 81 80 Pulse Rate [Right] Respiratory Rate Blood Pressure 184/112 H 184/115 H 187/108 H Pulse Oximetry 07/10/20 13:00 07/10/20 13:13 07/10/20 13:15 Temperature 36.7 C Pulse Rate 78 79 Pulse Rate [Right] 83 Respiratory Rate 20 Blood Pressure 165/96 H 160/92 H Pulse Oximetry 07/10/20 13:19 07/10/20 13:25 07/10/20 13:30 Temperature 36.7 C 36.7 C Pulse Rate 83 78 Pulse Rate [Right] Respiratory Rate 20 Blood Pressure 179/116 H 165/92 H Pulse Oximetry 07/10/20 13:45 07/10/20 14:00 07/10/20 14:15 Temperature Pulse Rate 78 78 78 Pulse Rate [Right] Respiratory Rate Blood Pressure 159/90 H 147/88 H 161/88 H Pulse Oximetry 07/10/20 14:30 07/10/20 14:45 07/10/20 15:00 Temperature Pulse Rate 78 77 78 Pulse Rate [Right] Respiratory Rate
--- NOTE | 2020-07-11 12:30 | PC.NURSE ---
Pt returned from Dialysis reports received from Obi who reports 2Liters was taken off, pt tolerated well.
[2020-07-11 12:44] LABS: Glucose Point of Care 197 mg/dl (65-105)
--- NOTE | 2020-07-11 15:23 | P.DS_ITS ---
DS: Admitting Diagnosis Admitting Diagnosis Admitting Diagnosis: Shortness of breath DS: Discharge Diagnosis Discharge Diagnosis (1) Dyspnea: Qualifiers: Dyspnea type: shortness of breath Qualified Code(s): R06.02 - Shortness of breath Code(s): R06.00 - Dyspnea, unspecified Status: Acute Assessment and Plan: * Patient is compliant with his hemodialysis * Last hemodialysis treatment was on yesterday and 2.5L was removed * Venous Dopplers negative for DVT * On room air saturation were 98% * Supplemental oxygen to keep sats above 92% * Patient stated that the shortness of breath is getting better with dialysis * Trend saturation * Supportive care (2) End stage renal disease: Code(s): N18.6 - End stage renal disease Status: Chronic Assessment and Plan: * On hemodialysis Wednesday * Nephrology consult, recommendations appreciated * Trend labs * Labs in the am * Dialysis to be managed by nephrology * Continue home lasix 80mg PO BID * Tamsulosin 0.2 PO daily * Supportive care (3) Hypertension: Qualifiers: Hypertension type: essential hypertension Qualified Code(s): I10 - Essential (primary) hypertension Code(s): I10 - Essential (primary) hypertension Status: Chronic Assessment and Plan: * Current blood pressure 165/98 * Blood pressure getting better with fluid removal * Continue home losartan 100mg PO daily * Continue home metoprolol 100 PO daily, * Trend blood pressures * Make medication adjustments as needed (4) Type 1 diabetes: Qualifiers: Diabetes mellitus complication status: with kidney complications Diabetes mellitus complication detail: with chronic kidney disease Chronic kidney disease stage: on chronic dialysis Qualified Code(s): E10.22 - Type 1 diabetes mellitus with diabetic chronic kidney disease; N18.6 - End stage renal disease; Z99.2 - Dependence on renal dialysis Code(s): E10.9 - Type 1 diabetes mellitus without complications Status: Chronic Assessment and Plan: * Glucose on labs is elevated at 228 * Continue insulin patient is on lispro on Lantus * Accu-Cheks AC and HS * Sliding scale and lantus ordered * Renal dialysis diet (5) Anemia requiring transfusions: Code(s): D64.9 - Anemia, unspecified Status: Chronic Assessment and Plan: * Hgb 10.1 and HCt 31.3 today on labs * Been stable this admission * Transfuse as needed * Likely secondary to kidney disease * Trend H&H * Labs in the am (6) Asthma: Qualifiers: Asthma severity: mild Asthma persistence: intermittent Asthma complication type: uncomplicated Qualified Code(s): J45.20 - Mild intermittent asthma, uncomplicated Code(s): J45.909 - Unspecified asthma, uncomplicated Status: Chronic Assessment and Plan: * Patient not actively wheezing * On albuterol sulfate puffs Q 6 p.r.n. * Productive cough with clear sputum (7) Anxiety and depression: Code(s): F41.9 - Anxiety disorder, unspecified; F32.9 - Major depressive disorder, single episode, unspecified Status: Acute Assessment and Plan: * Continue home Elavil 50 mg p.o. * Alprazolam 0.5mg Po HS * Trend mood (8) Seizure disorder: Code(s): G40.909 - Epilepsy, unspecified, not intractable, without s
--- NOTE | 2020-07-11 15:23 | PM.DS ---
DS: Admitting Diagnosis Admitting Diagnosis Admitting Diagnosis: Shortness of breath DS: Discharge Diagnosis Discharge Diagnosis (1) Dyspnea: Qualifiers: Dyspnea type: shortness of breath Qualified Code(s): R06.02 - Shortness of breath Code(s): R06.00 - Dyspnea, unspecified Status: Acute Assessment and Plan: Patient is compliant with his hemodialysis Last hemodialysis treatment was on yesterday and 2.5L was removed Venous Dopplers negative for DVT On room air saturation were 98% Supplemental oxygen to keep sats above 92% Patient stated that the shortness of breath is getting better with dialysis Trend saturation Supportive care (2) End stage renal disease: Code(s): N18.6 - End stage renal disease Status: Chronic Assessment and Plan: On hemodialysis Wednesday Nephrology consult, recommendations appreciated Trend labs Labs in the am Dialysis to be managed by nephrology Continue home lasix 80mg PO BID Tamsulosin 0.2 PO daily Supportive care (3) Hypertension: Qualifiers: Hypertension type: essential hypertension Qualified Code(s): I10 - Essential (primary) hypertension Code(s): I10 - Essential (primary) hypertension Status: Chronic Assessment and Plan: Current blood pressure 165/98 Blood pressure getting better with fluid removal Continue home losartan 100mg PO daily Continue home metoprolol 100 PO daily, Trend blood pressures Make medication adjustments as needed (4) Type 1 diabetes: Qualifiers: Diabetes mellitus complication status: with kidney complications Diabetes mellitus complication detail: with chronic kidney disease Chronic kidney disease stage: on chronic dialysis Qualified Code(s): E10.22 - Type 1 diabetes mellitus with diabetic chronic kidney disease; N18.6 - End stage renal disease; Z99.2 - Dependence on renal dialysis Code(s): E10.9 - Type 1 diabetes mellitus without complications Status: Chronic Assessment and Plan: Glucose on labs is elevated at 228 Continue insulin patient is on lispro on Lantus Accu-Cheks AC and HS Sliding scale and lantus ordered Renal dialysis diet (5) Anemia requiring transfusions: Code(s): D64.9 - Anemia, unspecified Status: Chronic Assessment and Plan: Hgb 10.1 and HCt 31.3 today on labs Been stable this admission Transfuse as needed Likely secondary to kidney disease Trend H&H Labs in the am (6) Asthma: Qualifiers: Asthma severity: mild Asthma persistence: intermittent Asthma complication type: uncomplicated Qualified Code(s): J45.20 - Mild intermittent asthma, uncomplicated Code(s): J45.909 - Unspecified asthma, uncomplicated Status: Chronic Assessment and Plan: Patient not actively wheezing On albuterol sulfate puffs Q 6 p.r.n. Productive cough with clear sputum (7) Anxiety and depression: Code(s): F41.9 - Anxiety disorder, unspecified; F32.9 - Major depressive disorder, single episode, unspecified Status: Acute Assessment and Plan: Continue home Elavil 50 mg p.o. Alprazolam 0.5mg Po HS Trend mood (8) Seizure disorder: Code(s): G40.909 - Epilepsy, unspecified, not intractable, without status epilepticus Status: Acute Assessment and Plan: Patient stated that the seizures started about 3 months ago Continue home Depakene 250mg Q8hr and Dilantin 100mg PO TID Monitor for seizure activity DS: Summary Hospital Course Hospital Course: patient is a 39-year-old male with history of diabetes, hypertension, end-stage renal disease who was seen in the ED for shortness of breath. Patient stated that he goes to dialysis Wednesday. Yesterday were able to take off 2.5 L. He is sating okay current blood pressure and estefani
[2020-07-11] MEDS: hydrALAZINE HCL 20 MG/ML VIAL IV PUSH (16:08)
== END 2020-07-11 17:00 | disposition home or self-care (01) | DRG 640 ==
LOC: ANHED 17:20 → ANHIMU 19:39 → ANH2MED 07-11 10:31 → ANHIMU 07-15 09:57
PROVIDERS: Emergency Medicine; Internal Medicine Nephrology; Admitting Provider Family Medicine; Emergency Provider General Practice; PCP Physician Assistant; Visit Provider Nurse Practitioner
DX: E87.79 Other fluid overload (principal); N18.6 End stage renal disease; I12.0 Hypertensive chronic kidney disease with stage 5 chronic kidney disease or end stage renal disease; J81.1 Chronic pulmonary edema; E87.1 Hypo-osmolality and hyponatremia; E10.22 Type 1 diabetes mellitus with diabetic chronic kidney disease; J45.909 Unspecified asthma, uncomplicated; F41.9 Anxiety disorder, unspecified; F32.9 Major depressive disorder, single episode, unspecified; G40.909 Epilepsy, unspecified, not intractable, without status epilepticus; Z99.2 Dependence on renal dialysis; D63.1 Anemia in chronic kidney disease; N25.0 Renal osteodystrophy
CPT/HCPCS: 36415; 71046; 80048; 80053; 80069; 82948; 83735; 83880; 84100; 84484; 85025; 85027; 85380; 85610; 85730; 86706; 87040; 87340; 93005; 93306; 93970; 96372; 96374; 96375; 96376; 99285; A9270; G0257; G0378; J0360; J1644; J1650; J1815; J1940; J7030; P9047

== ENCOUNTER 2020-08-09 21:38 | Emergency (ER) | payer MEDICARE, MEDICAID, SELFPAY ==
[2020-08-09 21:57] VITALS: BP 168/95; PULSE 88; RESP 18; TEMP 36.6; O2SAT 97
--- NOTE | 2020-08-09 22:29 | ED.GENADULT ---
HPI - General Adult General Chief complaint: Unspecified Stated complaint: Trouble sleeping- delirious Time Seen by Provider: 08/09/20 22:29 History of Present Illness HPI narrative: 39 yo dialysis patient presents to the ED for insomnia and confusion. He reports that he has been anxious and unable to sleep for 4-5 days. He has apparently been acting confused and got pulled over for driving erratically earlier today and was reportedly having trouble using the phone this evening. He reports similar issues when he had low potassium in the past. He las had dialysis today. Related Data Home Medications Medication Instructions Recorded Confirmed albuterol sulfate [Ventolin HFA] 2 puff INHALATION Q6H PRN 11/04/19 07/08/20 hydralazine 100 mg PO TID 11/04/19 07/09/20 metoprolol tartrate 100 mg PO BID 11/04/19 07/09/20 terazosin 2 mg PO BID 11/04/19 07/08/20 Lantus U-100 Insulin 15 unit SUBCUT QAM 06/01/20 07/08/20 Zoie-Zhanna Rx 1 tablet PO DAILY 06/01/20 07/08/20 amitriptyline 50 mg PO HS 06/01/20 07/08/20 calcium acetate 2 tablet PO TIDWMEAL 06/01/20 07/08/20 diazepam 5 mg PO DAILY 06/01/20 07/08/20 escitalopram oxalate 20 mg PO DAILY #0 06/01/20 07/08/20 famotidine 20 mg PO BID 06/01/20 07/08/20 furosemide 80 mg PO BID 06/01/20 07/08/20 losartan 100 mg PO DAILY 06/01/20 07/08/20 metoclopramide HCl 5 mg PO TIDWMEAL 06/01/20 07/08/20 diazepam 5 mg PO HS 06/02/20 07/08/20 ergocalciferol (vitamin D2) 1,250 mcg PO WEEKLY 06/02/20 07/08/20 insulin lispro [Humalog U-100 See Rx Instructions .ROUTE .COMPLEX 06/02/20 07/08/20 Insulin] phenytoin sodium extended 100 mg PO TID 06/02/20 07/08/20 [Dilantin Extended] sevelamer HCl 800 mg PO TID 06/02/20 07/08/20 alprazolam 0.5 mg PO HS 07/09/20 07/09/20 Allergies Allergy/AdvReac Type Severity Reaction Status Date / Time fluorescein Allergy Severe HIVES, BP Verified 08/09/20 21:40 DROPPED, SWELLING TONGUE Penicillins Allergy Unknown Unknown Verified 08/09/20 21:40 Sulfa (Sulfonamide Allergy Unknown Unknown Verified 08/09/20 21:40 Antibiotics) chlorpromazine Allergy Rash Verified 08/09/20 21:40 [From Thorazine] divalproex sodium AdvReac Confusion Verified 08/09/20 21:40 [From Depakote] Review of Systems Review of Systems: All systems reviewed & are unremarkable except as noted in HPI and below Constitutional: Constitutional: Denies fever(s) Eyes: Eyes: Reports as per HPI Cardiovascular: Cardiovascular: Denies chest pain Respiratory: Respiratory: Reports dyspnea Gastrointestinal: Gastrointestinal: Reports diarrhea and Denies nausea Genitourinary: Genitourinary: Reports no additional male genitourinary complaints Musculoskeletal: Musculoskeletal: Reports no additional musculoskeletal complaints FORMERLY [facility], [facility] Past Medical History Medical History (Updated 08/11/20 @ 00:01 by Jose Arredondo) Anemia requiring transfusions Anxiety Anxiety and depression Asthma Depression End stage renal disease End stage renal disease on dialysis peritoneal dialysis Erythropoietin deficiency anemia Hiccups Hypertension Migraines Nausea and vomiting in adult Renal osteodystrophy Type 1 diabetes diagnosis at the age of 14 and has an insulin pump Surgical History Surgical History History of appendectomy Hx of cholecystectomy Presence of peritoneal dialysis catheter Previous back surgery S/P dialysis catheter insertion Right upper chest Status post LASIK surgery of both eyes Family History Family History Mother Diabetes mellitus Cerebrovascular accident Father Hypertension Social History Social History Social History: the patient lives with his . He is disabled. The patient stated that he is on a transplant list for a kidney as well as pancreas but is currently on hold due to his illne
[2020-08-09 23:17] LABS: Basophils Percent Auto 0.4 % (0.2-1.2); Eosinophils Absolute Auto 0.4 K/mm3 (0-0.3); Eosinophils Percent Auto 6.2 % (0-4.4); Hematocrit 31.9 % (42.0-52.0); Hemoglobin 10.4 g/dL (14.0-18.0); Immature Granulocyte Absolute 0.02 K/mm3 (0.00-0.031); Immature Granulocyte Percent A 0.3 % (0-0.5); Lymphocytes Absolute Auto 1.34 K/mm3 (0.9-3.2); Lymphocytes Percent Auto 18.8 % (18.3-44.2); Mean Corpuscular HGB Conc 32.6 g/dl (32-36); Mean Corpuscular Hemoglobin 32.8 pg (26-34); Mean Corpuscular Volume 100.6 fl (80-100); Mean Platelet Volume 9.9 fl (7.4-10.4); Monocytes Absolute Auto 0.8 K/mm3 (0.1-0.6); Monocytes Percent Auto 11.1 % (2.6-8.5); Neutrophils Absolute Auto 4.5 K/mm3 (1.3-6.7); Neutrophils Percent Auto 63.2 % (45.5-73.1); Platelet Count Result 228 k/mm3 (150-375); Red Blood Count 3.17 M/mm3 (4.6-6.20); Red Cell Distribution Width 15.5 % (11.5-14.5); White Blood Count 7.1 K/mm3 (4.5-10.0)
[2020-08-09 23:38] LABS: INR 0.8; Prothrombin Time 12.1 Seconds (11.1-14.7)
[2020-08-09 23:39] LABS: Partial Thromboplastin Time 26.6 SECONDS (22.3-36.8)
[2020-08-09 23:42] LABS: Alanine Aminotransferase 29 U/L (4-50); Albumin Level 3.6 g/dL (3.5-5.1); Alkaline Phosphatase 166 U/L (38-126); Anion Gap 7 mmol/L (8-16); Aspartate Amino Transferase 31 U/L (17-59); Bilirubin,Total 0.3 mg/dL (0.2-1.3); Blood Urea Nitrogen 34 mg/dL (9-20); Calcium 9.1 mg/dL (8.4-10.2); Carbon Dioxide 35 mmol/L (22-30); Chloride 95 mmol/L (98-107); Estimated Glomerular Filt Rate 15; Glucose 95 mg/dL (75-110); Lipase 58 U/L (23-300); Potassium 4.7 mmol/L (3.4-5.0); Sodium 137 mmol/L (137-145)
[2020-08-09 23:49] LABS: Valproic Acid 18.6 ug/mL (50-120)
[2020-08-10] MEDS: LORazepam (*CRX) 1 MG TABLET 2 MG PO (00:42)
[2020-08-10 00:45] VITALS: BP 150/81; PULSE 75; RESP 16; O2SAT 98
== END 2020-08-10 00:47 | disposition home or self-care (01) ==
PROVIDERS: Emergency Provider Emergency Medicine; PCP Physician Assistant
DX: G47.00 Insomnia, unspecified (principal); E10.22 Type 1 diabetes mellitus with diabetic chronic kidney disease; I12.0 Hypertensive chronic kidney disease with stage 5 chronic kidney disease or end stage renal disease; N18.6 End stage renal disease; Z99.2 Dependence on renal dialysis; J45.909 Unspecified asthma, uncomplicated; F41.9 Anxiety disorder, unspecified; F32.9 Major depressive disorder, single episode, unspecified; Z79.4 Long term (current) use of insulin; N25.0 Renal osteodystrophy
CPT/HCPCS: 36415; 80053; 80164; 83690; 85025; 85610; 85730; 99283; A9270

== ENCOUNTER 2020-08-16 13:31 | Emergency (ER) | payer MEDICARE, MEDICAID, SELFPAY ==
[2020-08-16 14:00] VITALS: BP 181/105; PULSE 77; RESP 18; TEMP 36.6; O2SAT 99
[2020-08-16 14:42] LABS: Basophils Percent Auto 0.4 % (0.2-1.2); Eosinophils Absolute Auto 0.3 K/mm3 (0-0.3); Eosinophils Percent Auto 5.7 % (0-4.4); Hemoglobin 9.5 g/dL (14.0-18.0); Immature Granulocyte Absolute 0.03 K/mm3 (0.00-0.031); Immature Granulocyte Percent A 0.5 % (0-0.5); Lymphocytes Absolute Auto 0.83 K/mm3 (0.9-3.2); Lymphocytes Percent Auto 14.8 % (18.3-44.2); Mean Corpuscular HGB Conc 32.8 g/dl (32-36); Mean Corpuscular Hemoglobin 32.5 pg (26-34); Mean Corpuscular Volume 99.3 fl (80-100); Mean Platelet Volume 9.6 fl (7.4-10.4); Monocytes Absolute Auto 0.4 K/mm3 (0.1-0.6); Monocytes Percent Auto 7.8 % (2.6-8.5); Neutrophils Percent Auto 70.8 % (45.5-73.1); Platelet Count Result 208 k/mm3 (150-375); Red Blood Count 2.92 M/mm3 (4.6-6.20); Red Cell Distribution Width 14.4 % (11.5-14.5); White Blood Count 5.6 K/mm3 (4.5-10.0)
[2020-08-16 15:00] LABS: Alanine Aminotransferase 23 U/L (4-50); Albumin Level 3.5 g/dL (3.5-5.1); Alkaline Phosphatase 134 U/L (38-126); Anion Gap 7 mmol/L (8-16); Aspartate Amino Transferase 32 U/L (17-59); Bilirubin,Total 0.3 mg/dL (0.2-1.3); Blood Urea Nitrogen 45 mg/dL (9-20); Calcium 8.7 mg/dL (8.4-10.2); Carbon Dioxide 32 mmol/L (22-30); Chloride 95 mmol/L (98-107); Estimated CRCL calculation 16 ml/min; Estimated Glomerular Filt Rate 10; Glucose 138 mg/dL (75-110); Lipase 70 U/L (23-300); Potassium 4.6 mmol/L (3.4-5.0); Sodium 134 mmol/L (137-145)
== END 2020-08-16 14:00 | disposition left against medical advice (07) ==
PROVIDERS: Emergency Provider Emergency Medicine; PCP Physician Assistant
DX: Z53.21 Procedure and treatment not carried out due to patient leaving prior to being seen by health care provider (principal)
CPT/HCPCS: 36415; 80053; 83690; 85025; 99199

== ENCOUNTER 2020-08-25 15:50 | Inpatient (IN) | payer MEDICARE, MEDICAID, SELFPAY ==
[2020-08-25] VITALS (29 sets, daily range): BP systolic 170–237; BP diastolic 116–138; PULSE 86–98; RESP 7–23; TEMP 36.3–37.4; O2SAT 90–99; BMI 24.5
--- NOTE | ~2020-08-25 | US_ITS ---
EXAMINATION: US venous doppler [facility] DATE: 08/26/2020 13:11 INDICATION: Bilateral lower limb edema TECHNIQUE: Garcia scale images without and with compression and Doppler images of the bilateral lower e xtremity veins were obtained. COMPARISON: 07/08/2020 FINDINGS: The right common femoral vein, profunda femoral vein, femoral vein, popliteal vein, peroneal trunk, p osterior tibial veins, and greater saphenous vein are patent. The left common femoral vein, profunda femoral vein, femoral vein, popliteal vein, peroneal trunk, po sterior tibial veins, and greater saphenous vein are patent. IMPRESSION: 1. Patent bilateral lower extremity veins. No evidence of deep venous thrombosis. Reviewed, dictated and finalized at location A. IMPRESSION: 1. Patent bilateral lower extremity veins. No evidence of deep venous thrombosi s.
--- NOTE | ~2020-08-25 | XR_ITS ---
EXAMINATION: XR chest 2V EXAM DATE: 08/25/2020 16:19 INDICATION: Shortness of breath. TECHNIQUE: Portable AP frontal chest x-ray was obtained. Comparison is made to prior examination from 07/09/2020. FINDINGS: Double-lumen dialysis catheter in position. There is cardiomegaly. There is indistinct reti culation with a bibasal predominance which may indicate pulmonary edema. No confluent consolidation, pneumothorax or pleural effusion suspected. There are no osseous abnormalities identified. IMPRESSION: Cardiomegaly and indistinct basilar reticulation most contrast with pulmonary edema. Pneu monia not excludable. Reviewed, dictated and finalized at location A. IMPRESSION: Cardiomegaly and indistinct basilar reticulation most contrast with pulmonary edema. Pneumonia not excludable.
--- NOTE | 2020-08-25 16:00 | ECG_ITS ---
Measurements Intervals [place] Rate: 92 P: 55 CA: 149 QRS: 25 QRSD: 95 T: 81 QT: 381 QTc: 472 Interpretive Statements SINUS RHYTHM POSSIBLE LEFT ATRIAL ENLARGEMENT BORDERLINE ECG Electronically Signed On 08-25-2020 21:47:41 CDT by Lokesh Luna D.O.
[2020-08-25 16:12] LABS: Basophils Percent Auto 0.3 % (0.2-1.2); Eosinophils Absolute Auto 0.3 K/mm3 (0-0.3); Eosinophils Percent Auto 4.9 % (0-4.4); Hematocrit 28.5 % (42.0-52.0); Hemoglobin 9.2 g/dL (14.0-18.0); Immature Granulocyte Absolute 0.02 K/mm3 (0.00-0.031); Immature Granulocyte Percent A 0.3 % (0-0.5); Lymphocytes Absolute Auto 0.77 K/mm3 (0.9-3.2); Lymphocytes Percent Auto 11.8 % (18.3-44.2); Mean Corpuscular HGB Conc 32.3 g/dl (32-36); Mean Corpuscular Hemoglobin 32.6 pg (26-34); Mean Corpuscular Volume 101.1 fl (80-100); Mean Platelet Volume 9.4 fl (7.4-10.4); Monocytes Absolute Auto 0.4 K/mm3 (0.1-0.6); Monocytes Percent Auto 6.5 % (2.6-8.5); Neutrophils Percent Auto 76.2 % (45.5-73.1); Platelet Count Result 258 k/mm3 (150-375); Red Blood Count 2.82 M/mm3 (4.6-6.20); Red Cell Distribution Width 14.7 % (11.5-14.5); White Blood Count 6.5 K/mm3 (4.5-10.0)
[2020-08-25 16:20] LABS: INR 0.9
[2020-08-25 16:21] LABS: Partial Thromboplastin Time 26.1 SECONDS (22.3-36.8)
[2020-08-25 16:22] LABS: Anion Gap 15 mmol/L (8-16); Blood Urea Nitrogen 71 mg/dL (9-20); Calcium 8.6 mg/dL (8.4-10.2); Carbon Dioxide 26 mmol/L (22-30); Chloride 92 mmol/L (98-107); Estimated CRCL calculation 13 ml/min; Estimated Glomerular Filt Rate 7; Glucose 337 mg/dL (75-110); Potassium 5.6 mmol/L (3.4-5.0); Sodium 133 mmol/L (137-145)
[2020-08-25 16:37] LABS: NT Pro B Type Natriuretic Pept > 35000 pg/mL (5-100); Troponin I 0.046 ng/mL (0.000-0.034)
--- NOTE | 2020-08-25 17:18 | ED.GENADULT ---
HPI - General Adult General Chief complaint: Shortness of Breath/Dyspnea Stated complaint: fluid overload Time Seen by Provider: 08/25/20 16:00 Source: patient History of Present Illness HPI narrative: Patient is a 39 y/o male complaining of moderate bilateral leg swelling for last 2 days. He states that he may have had too much fluid intake causing his swelling to worse. He also has some SOB. He denies any chest pain. Related Data Home Medications Medication Instructions Recorded Confirmed albuterol sulfate [Ventolin HFA] 2 puff INHALATION Q6H PRN 11/04/19 07/08/20 hydralazine 100 mg PO TID 11/04/19 07/09/20 metoprolol tartrate 100 mg PO BID 11/04/19 07/09/20 terazosin 2 mg PO BID 11/04/19 07/08/20 Lantus U-100 Insulin 15 unit SUBCUT QAM 06/01/20 07/08/20 Zoie-Zhanna Rx 1 tablet PO DAILY 06/01/20 07/08/20 amitriptyline 50 mg PO HS 06/01/20 07/08/20 calcium acetate 2 tablet PO TIDWMEAL 06/01/20 07/08/20 diazepam 5 mg PO DAILY 06/01/20 07/08/20 escitalopram oxalate 20 mg PO DAILY #0 06/01/20 07/08/20 famotidine 20 mg PO BID 06/01/20 07/08/20 furosemide 80 mg PO BID 06/01/20 07/08/20 losartan 100 mg PO DAILY 06/01/20 07/08/20 metoclopramide HCl 5 mg PO TIDWMEAL 06/01/20 07/08/20 diazepam 5 mg PO HS 06/02/20 07/08/20 ergocalciferol (vitamin D2) 1,250 mcg PO WEEKLY 06/02/20 07/08/20 insulin lispro [Humalog U-100 See Rx Instructions .ROUTE .COMPLEX 06/02/20 07/08/20 Insulin] phenytoin sodium extended 100 mg PO TID 06/02/20 07/08/20 [Dilantin Extended] sevelamer HCl 800 mg PO TID 06/02/20 07/08/20 alprazolam 0.5 mg PO HS 05/18/21 05/18/21 Allergies Allergy/AdvReac Type Severity Reaction Status Date / Time fluorescein Allergy Severe HIVES, BP Verified 08/25/20 18:59 DROPPED, SWELLING TONGUE Penicillins Allergy Unknown Unknown Verified 08/25/20 18:59 Sulfa (Sulfonamide Allergy Unknown Unknown Verified 08/25/20 18:59 Antibiotics) chlorpromazine Allergy Rash Verified 08/25/20 18:59 [From Thorazine] divalproex sodium AdvReac Confusion Verified 08/25/20 18:59 [From Depakote] Review of Systems Constitutional: Constitutional: Denies chills, Denies fever(s), Denies headache(s) and Denies weakness Eyes: Eyes: Denies blurry vision ENT: Denies headache(s) and Denies neck pain Cardiovascular: Cardiovascular: Denies chest pain, Reports leg edema and Reports dyspnea Respiratory: Respiratory: Denies cough and Reports dyspnea Gastrointestinal: Gastrointestinal: Denies abdominal pain, Denies diarrhea, Denies nausea and Denies vomiting Genitourinary: Genitourinary: Denies hematuria and Denies dysuria Musculoskeletal: Musculoskeletal: Denies back pain and Denies neck pain Neurologic: Denies headache(s) and Denies weakness PMFSH Past Medical History Medical History Anemia requiring transfusions Anxiety Anxiety and depression Asthma Depression End stage renal disease End stage renal disease on dialysis peritoneal dialysis Erythropoietin deficiency anemia Hiccups Hypertension Migraines Nausea and vomiting in adult Renal osteodystrophy Type 1 diabetes diagnosis at the age of 14 and has an insulin pump Surgical History Surgical History History of appendectomy Hx of cholecystectomy Presence of peritoneal dialysis catheter Previous back surgery S/P dialysis catheter insertion Right upper chest Status post LASIK surgery of both eyes Family History Family History Mother Diabetes mellitus Cerebrovascular accident Father Hypertension Social History Social History Social History: the patient lives with his . He is disabled. The patient stated that he is on a transplant list for a kidney as well as pancreas but is currently on hold due to his illness. He has no biological childr
[2020-08-25] MEDS: cloNIDine HCL 0.1 MG TABLET PO (18:31)
--- NOTE | 2020-08-25 18:52 | ADMGEN ---
This patient, Ari Zuniga, was admitted to IMU Room 213-01. Patient/family oriented to hospital policies and general routines including ID bracelet, bed and alarms, visiting hours, pain management, procedures, bathroom and other care routines, personal items, smoking policy, room service/diet, and visiting hours. Information on how to activate the Rapid Response Team has been discussed. Patient/Family are encouraged to report perceived risks to care and to ask questions if they do not understand what they are told or what they should do.
--- NOTE | 2020-08-25 21:33 | PM.IMHP ---
H&P: HPI History of Present Illness Date/Time: 08/25/20 21:33 this is a 39-year-old male patient who has diabetes type 1 and end-stage renal disease. He has been on dialysis since January of 2019. The patient typically goes to dialysis on Wednesday. His last dialysis was on Wednesday. The patient stated that he has had swelling for 2 days. He feels like he consumed To many fluids. He is on p.o. Lasix but does not urinate. He is an uric. the patient has anasarca and is short of breath. He denies any chest pain. Nephrology has been consulted. The patient does have a PermCath to the right side of his chest. The patient was diagnosed with diabetes type 1 at the age of 14 and does not have an insulin Pump at this time. chest x-ray was read as cardiomegaly and indistinct basilar reticulation Mohs contrast with pulmonary edema. Pneumonia not excluded. Patient was given Catapres x1 in the emergency room. The patient is being admitted to observation status on the date of service of 08/25/2020. Chief Complaint: Edema to lower extremity Review of Systems Review of Systems: All systems reviewed & are unremarkable except as noted in HPI and below Constitutional: Constitutional: Reports as per HPI and Reports no additional constitutional complaints Eyes: Eyes: Reports as per HPI and Reports no additional eye complaints ENT: Reports system reviewed and no additional complaints, except as documented and Reports Normal hearing present Cardiovascular: Cardiovascular: Reports no additional cardiovascular complaints Respiratory: Respiratory: Reports no additional respiratory complaints and Reports no additional respiratory complaints Gastrointestinal: Gastrointestinal: Reports as per HPI and Reports no additional gastrointestinal complaints Musculoskeletal: Musculoskeletal: Reports no additional musculoskeletal complaints Integumentary/Breasts: Skin/Breast: Reports system reviewed and no additional complaints, except as docu and Reports as per HPI Neurologic: Reports system reviewed and no additional complaints, except as documented, Reports as per HPI and Reports Normal hearing present Psychiatric: Psychiatric: Reports no additional psychiatric complaints and Reports as per HPI Endocrine: Endocrine: Reports no additional endocrine complaints Hematologic/Lymphatic: Hematologic/Lymphatic: Reports no additional hematologic/lymphatic complaints Allergic/Immunologic: Allergic/Immunologic: Reports no additional allergic/immunologic complaints [facility] Past Medical History Medical History (Updated 08/25/20 @ 21:47 by Savi A. Benhoff, FOREIGN POLICY OFFICER) Anemia requiring transfusions Anxiety Anxiety and depression Asthma Depression End stage renal disease End stage renal disease on dialysis peritoneal dialysis Erythropoietin deficiency anemia Hiccups Hypertension Migraines Nausea and vomiting in adult Renal osteodystrophy Type 1 diabetes diagnosis at the age of 14 Surgical History Surgical History History of appendectomy Hx of cholecystectomy Presence of peritoneal dialysis catheter Previous back surgery S/P dialysis catheter insertion Right upper chest Status post LASIK surgery of both eyes Family History Family History Mother Diabetes mellitus Cerebrovascular accident Father Hypertension Social History Social History Social History: the patient lives with his . He is disabled. The patient stated that he is on a transplant list for a kidney as well as pancreas but is currently on hold due to his illness. He has no biological children but is has 1 child that he is raising. He adopted a child. The patient is a lifelong nonsmoker. He denies any alcohol marijuana or illicit drug use. His is the durable power civil rights attorney for healthcare. He desires to be
[2020-08-25] MEDS: HEPARIN SODIUM 5,000 UNITS/ML VIAL 5000 UNITS SUB-Q (22:37)
[2020-08-25] MEDS: hydrALAZINE HCL 50 MG TABLET 100 MG PO (22:37)
[2020-08-25] MEDS: FUROSEMIDE INJ 40 MG/4 ML VIAL 20 MG IV PUSH (22:37)
[2020-08-25] MEDS: AMITRIPTYLINE HCL 25 MG TABLET 50 MG PO (22:38)
[2020-08-25] MEDS: METOPROLOL TARTRATE 50 MG TAB 100 MG PO (22:38)
[2020-08-25] MEDS: VALPROIC ACID 250 MG CAPSULE PO (22:39)
[2020-08-25] MEDS: ALPRAZolam (*CRX) 0.5 MG TABLET PO (22:39)
[2020-08-25] MEDS: ERGOCALCIFEROL 50,000 UNIT CAPSULE 50000 UNITS PO (22:39)
[2020-08-26] VITALS (36 sets, daily range): BP systolic 167–215; BP diastolic 96–151; PULSE 75–97; RESP 16–22; TEMP 35.5–36.6; O2SAT 97–100
[2020-08-26] MEDS: ALPRAZolam (*CRX) 0.5 MG TABLET PO (01:37)
[2020-08-26] MEDS: MELATONIN 5 MG TABLET PO ×2 (01:37→22:21)
--- NOTE | 2020-08-26 02:22 | PC.NURSE ---
called dr garcia to inform him that the patient is still having extreme anxiety. unable to lie down because of it. patient denies any chest pain, sob, or pain of any kind. requested dr garcia to come see the patient. dr garcia asked questions and gave orders for meds.
[2020-08-26] MEDS: FUROSEMIDE INJ 100 MG/10 ML VIAL 80 MG IV PUSH (02:37)
[2020-08-26] MEDS: MORPHINE SULFATE (*CRX) 2 MG/ML INJ IV PUSH (02:59)
[2020-08-26] MEDS: hydrALAZINE HCL 20 MG/ML VIAL 10 MG IV PUSH (03:00)
--- NOTE | 2020-08-26 03:00 | PC.NURSE ---
patient is having severe muscle crams, all over his body. dr garcia is aware and has seen the patient.
--- NOTE | 2020-08-26 03:09 | PC.NURSE ---
patient was incontinent of stool earlier, patient did not want staff to know and tried to hide it. patient is cleaned up now.
[2020-08-26 03:17] LABS: Basophils Percent Auto 0.3 % (0.2-1.2); Eosinophils Absolute Auto 0.3 K/mm3 (0-0.3); Eosinophils Percent Auto 4.4 % (0-4.4); Hematocrit 28.6 % (42.0-52.0); Hemoglobin 9.2 g/dL (14.0-18.0); Immature Granulocyte Absolute 0.04 K/mm3 (0.00-0.031); Immature Granulocyte Percent A 0.6 % (0-0.5); Lymphocytes Absolute Auto 0.97 K/mm3 (0.9-3.2); Lymphocytes Percent Auto 13.7 % (18.3-44.2); Mean Corpuscular HGB Conc 32.2 g/dl (32-36); Mean Corpuscular Hemoglobin 32.4 pg (26-34); Mean Corpuscular Volume 100.7 fl (80-100); Mean Platelet Volume 9.7 fl (7.4-10.4); Monocytes Absolute Auto 0.4 K/mm3 (0.1-0.6); Monocytes Percent Auto 5.8 % (2.6-8.5); Neutrophils Absolute Auto 5.3 K/mm3 (1.3-6.7); Neutrophils Percent Auto 75.2 % (45.5-73.1); Platelet Count Result 220 k/mm3 (150-375); Red Blood Count 2.84 M/mm3 (4.6-6.20); Red Cell Distribution Width 14.6 % (11.5-14.5); White Blood Count 7.1 K/mm3 (4.5-10.0)
--- NOTE | 2020-08-26 03:20 | PC.NURSE ---
patient still having lots of muscle spasm/cramping, extremely restless. cannot stay in one place. is consistently standing and sitting and trying to lie down.
[2020-08-26 03:27] LABS: Alanine Aminotransferase 30 U/L (4-50); Albumin Level 3.6 g/dL (3.5-5.1); Alkaline Phosphatase 159 U/L (38-126); Anion Gap 14 mmol/L (8-16); Aspartate Amino Transferase 34 U/L (17-59); Bilirubin,Total 0.3 mg/dL (0.2-1.3); Blood Urea Nitrogen 76 mg/dL (9-20); Calcium 8.4 mg/dL (8.4-10.2); Carbon Dioxide 24 mmol/L (22-30); Chloride 93 mmol/L (98-107); Estimated CRCL calculation 12 ml/min; Estimated Glomerular Filt Rate 7; Glucose 435 mg/dL (75-110); Magnesium 2.1 mg/dL (1.6-2.3); Phosphorus 8.8 mg/dL (2.5-4.5); Potassium 5.9 mmol/L (3.4-5.0); Sodium 131 mmol/L (137-145)
[2020-08-26 03:28] LABS: Lactic Acid Reflex 0.8 mmol/L (0.7-2.1)
[2020-08-26 03:30] LABS: Hemoglobin A1C 7.4 % (<5.7)
[2020-08-26 03:45] LABS: Troponin I 0.044 ng/mL (0.000-0.034)
[2020-08-26] MEDS: INSULIN ASPART (*BKC) 100 UNITS/ML 10 UNITS SUB-Q (03:50)
[2020-08-26] MEDS: SODIUM POLYSTYRENE SULFONONATE 15 GM/60 ML BTL PO (03:50)
[2020-08-26 05:12] LABS: Hepatitis B Surface Antigen Negative (Negative)
[2020-08-26 05:18] LABS: HAV RESULT Negative (Negative); Hepatitis B Core IgM Result Negative (Negative)
[2020-08-26 05:41] LABS: Hepatitis B Surface Anti Res Positive
[2020-08-26] MEDS: HEPARIN SODIUM 5,000 UNITS/ML VIAL 5000 UNITS SUB-Q ×3 (06:20→22:21)
[2020-08-26] MEDS: VALPROIC ACID 250 MG CAPSULE PO ×3 (06:20→22:23)
[2020-08-26 07:42] LABS: Hepatitis C Virus Antibody Negative (Negative)
[2020-08-26 07:49] LABS: Free T4 Free Thyroxine Reflex 1.31 ng/dL (0.78-2.19)
[2020-08-26] MEDS: hydrALAZINE HCL 50 MG TABLET 100 MG PO ×3 (08:30→16:31)
[2020-08-26] MEDS: LOSARTAN POTASSIUM 100 MG TABLET PO (08:31)
[2020-08-26] MEDS: TERAZOSIN HCL 1 MG CAPSULE 2 MG PO ×2 (08:31→16:31)
[2020-08-26] MEDS: CALCIUM ACETATE 667 MG TABLET 1334 MG PO ×3 (08:31→16:31)
[2020-08-26] MEDS: ESCITALOPRAM OXALATE 10 MG TABLET 20 MG PO (08:31)
[2020-08-26] MEDS: METOCLOPRAMIDE HCL 5 MG TABLET PO ×3 (08:31→16:31)
[2020-08-26] MEDS: PHENYTOIN SODIUM 100 MG CAP PO ×3 (08:31→22:22)
[2020-08-26] MEDS: FAMOTIDINE 20 MG TABLET PO ×2 (08:31→16:31)
[2020-08-26] MEDS: PANTOPRAZOLE 40 MG TABLET PO ×2 (08:32→22:21)
[2020-08-26] MEDS: FUROSEMIDE 80 MG TABLET PO ×2 (08:32→16:31)
[2020-08-26] MEDS: VITAMIN B CMPLX/VIT C/FOLIC AC 1 CAPSULE 1 CAP PO (08:32)
[2020-08-26] MEDS: INSULIN ASPART (*BKC) 100 UNITS/ML SUB-Q ×2 (08:32→12:17)
[2020-08-26] MEDS: METOPROLOL TARTRATE 50 MG TAB 100 MG PO ×2 (08:32→22:22)
[2020-08-26] MEDS: diazePAM (*CRX) 5 MG TABLET PO (08:34)
[2020-08-26] MEDS: INSULIN GLARGINE (*BKC) 100 UNITS/ML 15 UNITS SUB-Q (08:34)
[2020-08-26 08:35] LABS: Glucose Point of Care 328 mg/dl (65-105)
[2020-08-26 08:43] LABS: Total Triiodothyronine (T3) 0.96 NG/ML (0.97-1.69)
--- NOTE | 2020-08-26 09:56 | PM.CNNEP ---
Assessment and Plan Assessment and plan (1) ESRD (end stage renal disease) on dialysis: Code(s): N18.6 - End stage renal disease; Z99.2 - Dependence on renal dialysis Status: Acute Assessment and Plan: the patient has end-stage renal disease. He has been on dialysis since 2019. This is due to hypertension and diabetes. He has gone to dialysis routinely. Will get dialysis today. (2) Severe hypertension: Code(s): I10 - Essential (primary) hypertension Status: Acute Assessment and Plan: Blood pressure is very high. Part of this is volume overload. He is currently on losartan, metoprolol. will remove fluid with dialysis today. If his blood pressure does not come down we can add amlodipine. (3) Volume overload: Qualifiers: Hypervolemia type: unspecified Qualified Code(s): E87.70 - Fluid overload, unspecified Code(s): E87.70 - Fluid overload, unspecified Status: Acute Assessment and Plan: The patient has volume overload. Chest x-ray shows pulmonary edema. Echocardiogram showed normal LV systolic function but he does have some diastolic dysfunction. He drink too much over the weekend. He has too much fluid on. (4) Erythropoietin deficiency anemia: Code(s): D63.1 - Anemia in chronic kidney disease Status: Acute Assessment and Plan: Hemoglobin is 9.2 which is below target. His blood pressure is very high though so we might hold EPO and give him a subcu dose tomorrow if the blood pressure is better. He did get a dose yesterday. Will check iron levels as well. (5) Renal osteodystrophy: Code(s): N25.0 - Renal osteodystrophy Status: Acute Assessment and Plan: Will check a phosphorus level in the morning (6) Type 1 diabetes: Qualifiers: Diabetes mellitus complication status: with kidney complications Diabetes mellitus complication detail: with chronic kidney disease Chronic kidney disease stage: on chronic dialysis Qualified Code(s): E10.22 - Type 1 diabetes mellitus with diabetic chronic kidney disease; N18.6 - End stage renal disease; Z99.2 - Dependence on renal dialysis Code(s): E10.9 - Type 1 diabetes mellitus without complications Status: Chronic Assessment and Plan: on Accu-Cheks and sliding-scale insulin. History of Present Illness Reason for Consult Consult date: 08/26/20 Chief Complaint Chief complaint: volume overload, elevated troponin History of Present Illness Narrative: Ari is a very pleasant 39-year-old gentleman who has multiple medical problems including end-stage renal disease on dialysis Wednesdays and Fridays under Dr. Carmichael, diabetes, renal osteodystrophy, anemia of chronic kidney disease, depression, asthma, anxiety and depression, migraines. patient went to dialysis on Wednesday and apparently had a good treatment. He gained a lot a weight over the weekend because of the holidays. He had gradually worsening shortness of breath over the last couple of days and came into the ER last night. He was seen and evaluated. He is found to be volume overloaded. He does not make any urine. He received some oxygen and feels better. He has no cough fever or chest pain. He does not smoke or drink. Review of Systems Constitutional: Constitutional: Reports no additional constitutional complaints Eyes: Eyes: Reports no additional eye complaints ENT: Reports system reviewed and no additional complaints, except as documented Cardiovascular: Cardiovascular: Reports no additional cardiovascular complaints Respiratory: Respiratory: Reports no additional respiratory complaints Gastrointestinal: Gastrointestinal: Reports no additional gastrointestinal complaints Genitourinary: Genitourinary: Reports no additional male genitourinary complaints Musculoskeletal: Musculoskeletal: Reports no additional musculoskeletal com
--- NOTE | 2020-08-26 10:59 | PM.IMPN ---
Progress Note: A&P Assessment and Plan (1) Volume overload: Qualifiers: Hypervolemia type: unspecified Qualified Code(s): E87.70 - Fluid overload, unspecified Code(s): E87.70 - Fluid overload, unspecified Status: Acute Assessment and Plan: continue to monitor intake and output The patient is on Lasix at home. And will continue with that and will give him a little bit extra Lasix tonight IV as well. The patient does void very little. Nephrology has been consulted. The patient has dialysis on Wednesday. The patient has anasarca at this time has some pulmonary edema. Patient is admitted to observation and hopefully will received dialysis in the morning. The patient admits to taking in too much oral fluids. (2) ESRD (end stage renal disease) on dialysis: Code(s): N18.6 - End stage renal disease; Z99.2 - Dependence on renal dialysis Status: Acute Assessment and Plan: continue hemodialysis The patient has end-stage renal disease and has dialysis on Wednesday and Wednesday. The last time he had dialysis was on Wednesday. Continue with patient's Renvela (3) Severe hypertension: Code(s): I10 - Essential (primary) hypertension Status: Acute Assessment and Plan: continue to monitor continue with patient's metoprolol and hydralazine. He was given clonidine x1 in the emergency room. He is also on Lasix. continue losartan. Continue with Hytrin (4) Anxiety and depression: Code(s): F41.9 - Anxiety disorder, unspecified; F32.9 - Major depressive disorder, single episode, unspecified Status: Acute Assessment and Plan: continue to monitor Continue with patient's home medications Continue with Lexapro and Elavil (5) Asthma: Qualifiers: Asthma severity: mild Asthma persistence: intermittent Asthma complication type: uncomplicated Qualified Code(s): J45.20 - Mild intermittent asthma, uncomplicated Code(s): J45.909 - Unspecified asthma, uncomplicated Status: Chronic Assessment and Plan: continue with albuterol. stable (6) Seizure disorder: Code(s): G40.909 - Epilepsy, unspecified, not intractable, without status epilepticus Status: Acute Assessment and Plan: continue with home medications of Dilantin. stable continue to monitor (7) Type 1 diabetes: Qualifiers: Diabetes mellitus complication status: with kidney complications Diabetes mellitus complication detail: with chronic kidney disease Chronic kidney disease stage: on chronic dialysis Qualified Code(s): E10.22 - Type 1 diabetes mellitus with diabetic chronic kidney disease; N18.6 - End stage renal disease; Z99.2 - Dependence on renal dialysis Code(s): E10.9 - Type 1 diabetes mellitus without complications Status: Chronic Assessment and Plan: Continue patient's Lantus and do sliding scale insulin. The patient no longer has an insulin pump. The patient was diagnosed with diabetes at the age of 14. Will check A1c. Accu-Cheks AC and HS insulin sliding scale as needed Subjective Date/time seen: 08/26/20 10:59 I feel much better Review of Systems Review of Systems: All systems reviewed & are unremarkable except as noted in HPI and below Constitutional: Constitutional: Reports as per HPI and Reports no additional constitutional complaints Eyes: Eyes: Reports as per HPI and Reports no additional eye complaints ENT: Reports system reviewed and no additional complaints, except as documented and Reports Normal hearing present Cardiovascular: Cardiovascular: Reports no additional cardiovascular complaints Respiratory: Respiratory: Reports no additional respiratory complaints and Reports no additional respiratory complaints Gastrointestinal: Gastrointestinal: Reports as per HPI and Reports no additional gastrointestinal complaints Musculoskeletal: Musculoskeletal: Reports no
[2020-08-26 12:01] LABS: Glucose Point of Care 216 mg/dl (65-105)
[2020-08-26 16:40] LABS: Glucose Point of Care 131 mg/dl (65-105)
--- NOTE | 2020-08-26 18:34 | PC.NURSE ---
Patient to dialysis via bed.
[2020-08-26] MEDS: SODIUM CHLORIDE 0.9% IV 1,000 ML 999 ML IV CONT (19:27)
[2020-08-26] MEDS: EPOETIN ALFA-EPBX 10,000 UNITS/ML VIAL 10000 UNITS IV PUSH (20:28)
[2020-08-26] MEDS: LORazepam INJ (*CRX) 2 MG/ML VIAL 0.5 MG IV PUSH (22:20)
[2020-08-26] MEDS: ACETAMINOPHEN 325 MG TABLET 650 MG PO (22:21)
[2020-08-26] MEDS: AMITRIPTYLINE HCL 25 MG TABLET 50 MG PO (22:21)
[2020-08-26 22:22] LABS: Glucose Point of Care 96 mg/dl (65-105)
[2020-08-27] VITALS (16 sets, daily range): BP systolic 157–203; BP diastolic 79–116; PULSE 76–97; RESP 12–22; TEMP 36.5–36.7; O2SAT 93–99
[2020-08-27 04:56] LABS: Hematocrit 27.8 % (42.0-52.0); Hemoglobin 8.9 g/dL (14.0-18.0); Mean Corpuscular Hemoglobin 32.4 pg (26-34); Mean Corpuscular Volume 101.1 fl (80-100); Mean Platelet Volume 9.7 fl (7.4-10.4); Platelet Count Result 204 k/mm3 (150-375); Red Blood Count 2.75 M/mm3 (4.6-6.20); Red Cell Distribution Width 14.9 % (11.5-14.5); White Blood Count 5.4 K/mm3 (4.5-10.0)
[2020-08-27 05:13] LABS: Albumin Level 3.4 g/dL (3.5-5.1); Anion Gap 10 mmol/L (8-16); Blood Urea Nitrogen 42 mg/dL (9-20); Calcium 8.8 mg/dL (8.4-10.2); Carbon Dioxide 30 mmol/L (22-30); Chloride 99 mmol/L (98-107); Estimated CRCL calculation 17 ml/min; Estimated Glomerular Filt Rate 11; Glucose 89 mg/dL (75-110); Phosphorus 6.4 mg/dL (2.5-4.5); Potassium 4.1 mmol/L (3.4-5.0); Sodium 139 mmol/L (137-145)
[2020-08-27] MEDS: VALPROIC ACID 250 MG CAPSULE PO ×3 (05:52→20:31)
[2020-08-27] MEDS: HEPARIN SODIUM 5,000 UNITS/ML VIAL 5000 UNITS SUB-Q ×3 (05:52→20:31)
[2020-08-27 05:53] LABS: Iron 41 ug/dL (49-181)
[2020-08-27 06:02] LABS: Percent Iron Saturation 17 % (20-50)
[2020-08-27 07:48] LABS: Glucose Point of Care 113 mg/dl (65-105)
[2020-08-27] MEDS: CALCIUM ACETATE 667 MG TABLET 1334 MG PO ×3 (08:31→17:06)
[2020-08-27] MEDS: hydrALAZINE HCL 50 MG TABLET 100 MG PO ×3 (08:32→17:07)
[2020-08-27] MEDS: METOCLOPRAMIDE HCL 5 MG TABLET PO ×3 (08:33→17:08)
[2020-08-27] MEDS: LOSARTAN POTASSIUM 100 MG TABLET PO (08:33)
[2020-08-27] MEDS: PHENYTOIN SODIUM 100 MG CAP PO ×3 (08:33→20:32)
[2020-08-27] MEDS: PANTOPRAZOLE 40 MG TABLET PO ×2 (08:33→20:31)
[2020-08-27] MEDS: TERAZOSIN HCL 1 MG CAPSULE 2 MG PO ×2 (08:34→17:08)
[2020-08-27] MEDS: ESCITALOPRAM OXALATE 10 MG TABLET 20 MG PO (08:34)
[2020-08-27] MEDS: FUROSEMIDE 80 MG TABLET PO ×2 (08:34→17:07)
[2020-08-27] MEDS: METOPROLOL TARTRATE 50 MG TAB 100 MG PO ×2 (08:35→20:31)
[2020-08-27] MEDS: VITAMIN B CMPLX/VIT C/FOLIC AC 1 CAPSULE 1 CAP PO (08:35)
[2020-08-27] MEDS: FAMOTIDINE 20 MG TABLET PO ×2 (08:35→17:07)
[2020-08-27] MEDS: INSULIN GLARGINE (*BKC) 100 UNITS/ML 15 UNITS SUB-Q (08:36)
[2020-08-27] MEDS: diazePAM (*CRX) 5 MG TABLET PO (08:46)
[2020-08-27] MEDS: minoxidiL 2.5 MG TABLET PO (10:33)
[2020-08-27] MEDS: IRON SUCROSE COMPLEX 200 MG in SODIUM CHLORIDE 0.9% IV 50 ML 120 MG IVPB (10:33)
[2020-08-27 12:19] LABS: Glucose Point of Care 157 mg/dl (65-105)
--- NOTE | 2020-08-27 14:39 | PM.IMPN ---
Progress Note: A&P Assessment and Plan (1) Volume overload: Qualifiers: Hypervolemia type: unspecified Qualified Code(s): E87.70 - Fluid overload, unspecified Code(s): E87.70 - Fluid overload, unspecified Status: Acute Assessment and Plan: PATIENT DIALYZES Wednesday AND WEDNESDAY HAD DIALYSIS YESTERDAY STARTED ON MINOXIDIL LONGSTANDING UNCONTROLLED HYPERTENSION BLOOD PRESSURE IS BETTER CONTROLLED continue to monitor intake and output The patient is on Lasix at home. And will continue with that and will give him a little bit extra Lasix tonight IV as well. The patient does void very little. Nephrology has been consulted. The patient has dialysis on Wednesday. The patient has anasarca at this time has some pulmonary edema. Patient is admitted to observation and hopefully will received dialysis in the morning. The patient admits to taking in too much oral fluids. (2) ESRD (end stage renal disease) on dialysis: Code(s): N18.6 - End stage renal disease; Z99.2 - Dependence on renal dialysis Status: Acute Assessment and Plan: continue hemodialysis The patient has end-stage renal disease and has dialysis on Wednesday and Wednesday. The last time he had dialysis was on Wednesday. Continue with patient's Renvela (3) Severe hypertension: Code(s): I10 - Essential (primary) hypertension Status: Acute Assessment and Plan: continue to monitor continue with patient's metoprolol and hydralazine. He was given clonidine x1 in the emergency room. He is also on Lasix. continue losartan. Continue with Hytrin IS STARTED ON MINOXIDIL (4) Anxiety and depression: Code(s): F41.9 - Anxiety disorder, unspecified; F32.9 - Major depressive disorder, single episode, unspecified Status: Acute Assessment and Plan: continue to monitor Continue with patient's home medications Continue with Lexapro and Elavil (5) Asthma: Qualifiers: Asthma severity: mild Asthma persistence: intermittent Asthma complication type: uncomplicated Qualified Code(s): J45.20 - Mild intermittent asthma, uncomplicated Code(s): J45.909 - Unspecified asthma, uncomplicated Status: Chronic Assessment and Plan: continue with albuterol. stable NOT ACTIVELY WHEEZING (6) Seizure disorder: Code(s): G40.909 - Epilepsy, unspecified, not intractable, without status epilepticus Status: Acute Assessment and Plan: continue with home medications of Dilantin. stable continue to monitor (7) Type 1 diabetes: Qualifiers: Diabetes mellitus complication status: with kidney complications Diabetes mellitus complication detail: with chronic kidney disease Chronic kidney disease stage: on chronic dialysis Qualified Code(s): E10.22 - Type 1 diabetes mellitus with diabetic chronic kidney disease; N18.6 - End stage renal disease; Z99.2 - Dependence on renal dialysis Code(s): E10.9 - Type 1 diabetes mellitus without complications Status: Chronic Assessment and Plan: Continue patient's Lantus and do sliding scale insulin. The patient no longer has an insulin pump. The patient was diagnosed with diabetes at the age of 14. Will check A1c. Accu-Cheks AC and HS insulin sliding scale as needed Subjective Date/time seen: 08/27/20 14:39 I FEEL WELL Review of Systems Review of Systems: All systems reviewed & are unremarkable except as noted in HPI and below Constitutional: Constitutional: Reports as per HPI and Reports no additional constitutional complaints Eyes: Eyes: Reports as per HPI and Reports no additional eye complaints ENT: Reports system reviewed and no additional complaints, except as documented and Reports Normal hearing present Cardiovascular: Cardiovascular: Reports no additional cardiovascular complaints Respiratory: Respiratory: Reports no additional resp
[2020-08-27 17:02] LABS: Glucose Point of Care 161 mg/dl (65-105)
[2020-08-27 20:30] LABS: Glucose Point of Care 202 mg/dl (65-105)
[2020-08-27] MEDS: MELATONIN 5 MG TABLET PO (20:32)
[2020-08-27] MEDS: AMITRIPTYLINE HCL 25 MG TABLET 50 MG PO (20:32)
[2020-08-28] VITALS (19 sets, daily range): BP systolic 150–192; BP diastolic 85–113; PULSE 75–95; RESP 16–20; TEMP 36–37; O2SAT 95–100
[2020-08-28 05:35] LABS: Hematocrit 29.4 % (42.0-52.0); Hemoglobin 9.2 g/dL (14.0-18.0); Mean Corpuscular HGB Conc 31.3 g/dl (32-36); Mean Corpuscular Hemoglobin 32.7 pg (26-34); Mean Corpuscular Volume 104.6 fl (80-100); Platelet Count Result 195 k/mm3 (150-375); Red Blood Count 2.81 M/mm3 (4.6-6.20); White Blood Count 5.4 K/mm3 (4.5-10.0)
[2020-08-28] MEDS: HEPARIN SODIUM 5,000 UNITS/ML VIAL 5000 UNITS SUB-Q ×2 (05:45→14:06)
[2020-08-28] MEDS: VALPROIC ACID 250 MG CAPSULE PO ×2 (05:45→14:02)
[2020-08-28 06:05] LABS: Albumin Level 3.5 g/dL (3.5-5.1); Anion Gap 13 mmol/L (8-16); Blood Urea Nitrogen 53 mg/dL (9-20); Calcium 9.1 mg/dL (8.4-10.2); Carbon Dioxide 24 mmol/L (22-30); Chloride 98 mmol/L (98-107); Estimated CRCL calculation 14 ml/min; Estimated Glomerular Filt Rate 8; Glucose 185 mg/dL (75-110); Phosphorus 7.9 mg/dL (2.5-4.5); Potassium 4.8 mmol/L (3.4-5.0); Sodium 135 mmol/L (137-145)
[2020-08-28 07:24] LABS: Glucose Point of Care 189 mg/dl (65-105)
--- NOTE | 2020-08-28 08:09 | PM.PNNEP ---
Progress Note: A&P Assessment and Plan (1) ESRD (end stage renal disease) on dialysis: Code(s): N18.6 - End stage renal disease; Z99.2 - Dependence on renal dialysis Status: Acute Assessment and Plan: the patient has end-stage renal disease. He has been on dialysis since 2019. This is due to hypertension and diabetes. He has gone to dialysis routinely. Will get dialysis tomorrow. Continue Wednesday treatments. (2) Severe hypertension: Code(s): I10 - Essential (primary) hypertension Status: Acute Assessment and Plan: Blood pressure is very high. Part of this is volume overload. He is currently on losartan, terazosin, hydralazine,metoprolol. (3) Volume overload: Qualifiers: Hypervolemia type: unspecified Qualified Code(s): E87.70 - Fluid overload, unspecified Code(s): E87.70 - Fluid overload, unspecified Status: Acute Assessment and Plan: this is improved with fluid removal last night. Will take off more fluid today. (4) Erythropoietin deficiency anemia: Code(s): D63.1 - Anemia in chronic kidney disease Status: Acute Assessment and Plan: Once blood pressure is down we can restart the EPO. (5) Renal osteodystrophy: Code(s): N25.0 - Renal osteodystrophy Status: Acute Assessment and Plan: Phosphorus was 6.4. Not too bad for this patient. He is getting Calcium Acetate and is on a renal diet now. (6) Type 1 diabetes: Qualifiers: Diabetes mellitus complication status: with kidney complications Diabetes mellitus complication detail: with chronic kidney disease Chronic kidney disease stage: on chronic dialysis Qualified Code(s): E10.22 - Type 1 diabetes mellitus with diabetic chronic kidney disease; N18.6 - End stage renal disease; Z99.2 - Dependence on renal dialysis Code(s): E10.9 - Type 1 diabetes mellitus without complications Status: Chronic Assessment and Plan: on Accu-Cheks and sliding-scale insulin. Subjective Date/time seen: 08/28/20 08:09 Interval history: this is a late entry. I was unable to get in to the system remotely to do my note last evening. Patient was seen at 7:50 a.m. on 08/27/2020 the patient feels better today. He is still tired but not as sleepy. He slept well last night. He had dialysis last evening and they removed some fluid. He feels better today. He is due for another treatment tomorrow Review of Systems Cardiovascular: Cardiovascular: Reports no additional cardiovascular complaints Respiratory: Respiratory: Reports no additional respiratory complaints Gastrointestinal: Gastrointestinal: Reports no additional gastrointestinal complaints Genitourinary: Genitourinary: Reports no additional male genitourinary complaints Exam Narrative: Exam Narrative: WDWN in NAD skin no rash head ncat lungs clear cor reg no rub abd BS+ nontender and soft ext 1+ edema. Objective Data Vital Signs Vital Signs: Vital Signs - 24 hr 08/27/20 08:35 08/27/20 10:00 08/27/20 12:00 Temperature 36.6 C Pulse Rate 93 81 76 Respiratory Rate 16 Blood Pressure 157/79 H Pulse Oximetry 93 96 08/27/20 14:00 08/27/20 16:00 08/27/20 18:00 Temperature 36.6 C Pulse Rate 83 90 92 Respiratory Rate 16 Blood Pressure 175/107 H Pulse Oximetry 95 08/27/20 19:31 08/27/20 20:00 08/27/20 20:31 Temperature 36.5 C Pulse Rate 95 97 95 Respiratory Rate 18 18 Blood Pressure 179/101 H Pulse Oximetry 95 95 08/27/20 22:00 08/27/20 23:25 08/28/20 00:00 Temperature 36.7 C Pulse Rate 77 80 81 Respiratory Rate 20 20 Blood Pressure 175/108 H Pulse Oximetry 96 96 08/28/20 02:00 08/28/20 04:00 08/28/20 06:00 Temperature 36.7 C Pulse Rate 83 81 83 Respiratory Rate 18 Blood Pressure 150/95 H Pulse Oximetry 100 Intake/Output Intake/Output: Intake & Output
[2020-08-28] MEDS: ESCITALOPRAM OXALATE 10 MG TABLET 20 MG PO (08:11)
[2020-08-28] MEDS: PHENYTOIN SODIUM 100 MG CAP PO ×2 (08:11→14:03)
[2020-08-28] MEDS: FAMOTIDINE 20 MG TABLET PO ×2 (08:11→17:52)
[2020-08-28] MEDS: diazePAM (*CRX) 5 MG TABLET PO (08:11)
[2020-08-28] MEDS: hydrALAZINE HCL 50 MG TABLET 100 MG PO ×3 (08:12→17:54)
[2020-08-28] MEDS: PANTOPRAZOLE 40 MG TABLET PO (08:12)
[2020-08-28] MEDS: CALCIUM ACETATE 667 MG TABLET 1334 MG PO ×3 (08:12→17:52)
[2020-08-28] MEDS: TERAZOSIN HCL 1 MG CAPSULE 2 MG PO ×2 (08:12→17:57)
[2020-08-28] MEDS: METOCLOPRAMIDE HCL 5 MG TABLET PO ×3 (08:12→17:54)
[2020-08-28] MEDS: minoxidiL 2.5 MG TABLET PO ×2 (08:12→17:55)
[2020-08-28] MEDS: VITAMIN B CMPLX/VIT C/FOLIC AC 1 CAPSULE 1 CAP PO (08:12)
[2020-08-28] MEDS: LOSARTAN POTASSIUM 100 MG TABLET PO (08:13)
[2020-08-28] MEDS: FUROSEMIDE 80 MG TABLET PO ×2 (08:13→17:54)
[2020-08-28] MEDS: METOPROLOL TARTRATE 50 MG TAB 100 MG PO (08:13)
[2020-08-28] MEDS: INSULIN GLARGINE (*BKC) 100 UNITS/ML 15 UNITS SUB-Q (08:18)
[2020-08-28] MEDS: IRON SUCROSE COMPLEX 200 MG in SODIUM CHLORIDE 0.9% IV 50 ML 120 MG IVPB (08:18)
[2020-08-28 13:32] LABS: Glucose Point of Care 100 mg/dl (65-105)
--- NOTE | 2020-08-28 13:32 | PM.PNNEP ---
Progress Note: A&P Assessment and Plan (1) ESRD (end stage renal disease) on dialysis: Code(s): N18.6 - End stage renal disease; Z99.2 - Dependence on renal dialysis Status: Acute Assessment and Plan: the patient has end-stage renal disease. He has been on dialysis since 2019. This is due to hypertension and diabetes. He has gone to dialysis routinely. on dialysis now. (2) Severe hypertension: Code(s): I10 - Essential (primary) hypertension Status: Acute Assessment and Plan: Blood pressure is very high. Part of this is volume overload. He is currently on losartan, terazosin, hydralazine,metoprolol. Will add minoxidil (3) Volume overload: Qualifiers: Hypervolemia type: unspecified Qualified Code(s): E87.70 - Fluid overload, unspecified Code(s): E87.70 - Fluid overload, unspecified Status: Acute Assessment and Plan: this is improved with fluid removal last night. Will take off more fluid today. (4) Erythropoietin deficiency anemia: Code(s): D63.1 - Anemia in chronic kidney disease Status: Acute Assessment and Plan: Once blood pressure is down we can restart the EPO. hemoglobin is stable (5) Renal osteodystrophy: Code(s): N25.0 - Renal osteodystrophy Status: Acute Assessment and Plan: Phosphorus was 6.4. Not too bad for this patient. He is getting Calcium Acetate and is on a renal diet now. (6) Type 1 diabetes: Qualifiers: Diabetes mellitus complication status: with kidney complications Diabetes mellitus complication detail: with chronic kidney disease Chronic kidney disease stage: on chronic dialysis Qualified Code(s): E10.22 - Type 1 diabetes mellitus with diabetic chronic kidney disease; N18.6 - End stage renal disease; Z99.2 - Dependence on renal dialysis Code(s): E10.9 - Type 1 diabetes mellitus without complications Status: Chronic Assessment and Plan: on Accu-Cheks and sliding-scale insulin. Subjective Date/time seen: 08/28/20 13:32 Interval history: On dialysis and tolerating it well. His blood pressures come down some and is in the 160s now. He was seen at 12:10 p.m. breathing is better. No cramps or shortness of breath. Exam Narrative: Exam Narrative: WDWN in NAD skin no rash or subcu nodules head ncat lungs clear bilaterally cor reg no rub abd BS+ nontender and soft ext 1+ edema. Objective Data Vital Signs Vital Signs: Vital Signs - 24 hr 08/27/20 14:00 08/27/20 16:00 08/27/20 18:00 Temperature 36.6 C Pulse Rate 83 90 92 Pulse Rate [Bilateral] Respiratory Rate 16 Blood Pressure 175/107 H Pulse Oximetry 95 08/27/20 19:31 08/27/20 20:00 08/27/20 20:31 Temperature 36.5 C Pulse Rate 95 97 95 Pulse Rate [Bilateral] Respiratory Rate 18 18 Blood Pressure 179/101 H Pulse Oximetry 95 95 08/27/20 22:00 08/27/20 23:25 08/28/20 00:00 Temperature 36.7 C Pulse Rate 77 80 81 Pulse Rate [Bilateral] Respiratory Rate 20 20 Blood Pressure 175/108 H Pulse Oximetry 96 96 08/28/20 02:00 08/28/20 04:00 08/28/20 06:00 Temperature 36.7 C Pulse Rate 83 81 83 Pulse Rate [Bilateral] Respiratory Rate 18 Blood Pressure 150/95 H Pulse Oximetry 100 08/28/20 08:00 08/28/20 08:13 08/28/20 09:10 Temperature 36.8 C 36.6 C Pulse Rate 87 90 76 Pulse Rate [Bilateral] 76 Respiratory Rate 18 16 Blood Pressure 183/108 H 184/108 H Pulse Oximetry 96 08/28/20 10:00 08/28/20 11:06 08/28/20 12:00 Temperature Pulse Rate 95 76 79 Pulse Rate [Bilateral] Respiratory Rate Blood Pressure 184/108 H Pulse Oximetry 08/28/20 13:24 Temperature 36.9 C Pulse Rate 87 Pulse Rate [Bilateral] Respiratory Rate 17 Blood Pressure 178/99 H Pulse Oximetry 97 Intake/Output Intake/Output: Intake & Output 08/25/20 08/26/20 08/27/20 08/28/20 23:5
--- NOTE | 2020-08-28 15:51 | PM.IMPN ---
Progress Note: A&P Assessment and Plan (1) Volume overload: Qualifiers: Hypervolemia type: unspecified Qualified Code(s): E87.70 - Fluid overload, unspecified Code(s): E87.70 - Fluid overload, unspecified Status: Acute Assessment and Plan: PATIENT DIALYZES Wednesday AND WEDNESDAY HAVING DIALYSIS STARTED ON MINOXIDIL LONGSTANDING UNCONTROLLED HYPERTENSION BLOOD PRESSURE IS BETTER CONTROLLED IMPROVED continue to monitor intake and output The patient is on Lasix at home. And will continue with that and will give him a little bit extra Lasix tonight IV as well. The patient does void very little. Nephrology has been consulted. The patient has dialysis on Wednesday. The patient has anasarca at this time has some pulmonary edema. Patient is admitted to observation and hopefully will received dialysis in the morning. The patient admits to taking in too much oral fluids. (2) ESRD (end stage renal disease) on dialysis: Code(s): N18.6 - End stage renal disease; Z99.2 - Dependence on renal dialysis Status: Acute Assessment and Plan: continue hemodialysis UNDERGOING DIALYSIS FOLLOW NEPHROLOGY RECOMMENDATIONS The patient has end-stage renal disease and has dialysis on Wednesday and Wednesday. The last time he had dialysis was on Wednesday. Continue with patient's Renvela (3) Severe hypertension: Code(s): I10 - Essential (primary) hypertension Status: Acute Assessment and Plan: continue to monitor continue with patient's metoprolol and hydralazine. He was given clonidine x1 in the emergency room. He is also on Lasix. continue losartan. Continue with Hytrin STARTED ON MINOXIDIL IMPROVED (4) Anxiety and depression: Code(s): F41.9 - Anxiety disorder, unspecified; F32.9 - Major depressive disorder, single episode, unspecified Status: Acute Assessment and Plan: continue to monitor Continue with patient's home medications Continue with Lexapro and Elavil (5) Asthma: Qualifiers: Asthma severity: mild Asthma persistence: intermittent Asthma complication type: uncomplicated Qualified Code(s): J45.20 - Mild intermittent asthma, uncomplicated Code(s): J45.909 - Unspecified asthma, uncomplicated Status: Chronic Assessment and Plan: continue with albuterol. stable NOT ACTIVELY WHEEZING (6) Seizure disorder: Code(s): G40.909 - Epilepsy, unspecified, not intractable, without status epilepticus Status: Acute Assessment and Plan: continue with home medications of Dilantin. stable continue to monitor (7) Type 1 diabetes: Qualifiers: Diabetes mellitus complication status: with kidney complications Diabetes mellitus complication detail: with chronic kidney disease Chronic kidney disease stage: on chronic dialysis Qualified Code(s): E10.22 - Type 1 diabetes mellitus with diabetic chronic kidney disease; N18.6 - End stage renal disease; Z99.2 - Dependence on renal dialysis Code(s): E10.9 - Type 1 diabetes mellitus without complications Status: Chronic Assessment and Plan: Continue patient's Lantus and do sliding scale insulin. The patient no longer has an insulin pump. The patient was diagnosed with diabetes at the age of 14. Will check A1c. Accu-Cheks AC and HS insulin sliding scale as needed CONTINUE TO MONITOR Subjective Date/time seen: 08/28/20 15:51 I AM OKAY Interval history: On dialysis and tolerating it well. His blood pressures come down some and is in the 160s now. He was seen at 12:10 p.m. breathing is better. No cramps or shortness of breath. Review of Systems Review of Systems: All systems reviewed & are unremarkable except as noted in HPI and below Constitutional: Constitutional: Reports as per HPI and Reports no additional constitutional complaints Eyes: Eyes: Reports as per HPI
[2020-08-28 16:27] LABS: Glucose Point of Care 111 mg/dl (65-105)
--- NOTE | 2020-09-24 18:39 | PM.DS ---
DS: Admitting Diagnosis Admitting Diagnosis (1) Volume overload: Qualifiers: Hypervolemia type: unspecified Qualified Code(s): E87.70 - Fluid overload, unspecified Code(s): E87.70 - Fluid overload, unspecified Status: Acute Assessment and Plan: The patient is on Lasix at home. And will continue with that and will give him a little bit extra Lasix tonight IV as well. The patient does void very little. Nephrology has been consulted. The patient has dialysis on Wednesday. The patient has anasarca at this time has some pulmonary edema. Patient is admitted to observation and hopefully will received dialysis in the morning. The patient admits to taking in too much oral fluids. (2) ESRD (end stage renal disease) on dialysis: Code(s): N18.6 - End stage renal disease; Z99.2 - Dependence on renal dialysis Status: Acute Assessment and Plan: The patient has end-stage renal disease and has dialysis on Wednesday and Wednesday. The last time he had dialysis was on Wednesday. Continue with patient's Renvela (3) Severe hypertension: Code(s): I10 - Essential (primary) hypertension Status: Acute Assessment and Plan: continue with patient's metoprolol and hydralazine. He was given clonidine x1 in the emergency room. He is also on Lasix. continue losartan. Continue with Hytrin (4) Anxiety and depression: Code(s): F41.9 - Anxiety disorder, unspecified; F32.9 - Major depressive disorder, single episode, unspecified Status: Acute Assessment and Plan: Continue with patient's home medications Continue with Lexapro and Elavil (5) Asthma: Qualifiers: Asthma severity: mild Asthma persistence: intermittent Asthma complication type: uncomplicated Qualified Code(s): J45.20 - Mild intermittent asthma, uncomplicated Code(s): J45.909 - Unspecified asthma, uncomplicated Status: Chronic Assessment and Plan: continue with albuterol. (6) Seizure disorder: Code(s): G40.909 - Epilepsy, unspecified, not intractable, without status epilepticus Status: Acute Assessment and Plan: continue with home medications of Dilantin. (7) Type 1 diabetes: Qualifiers: Diabetes mellitus complication status: with kidney complications Diabetes mellitus complication detail: with chronic kidney disease Chronic kidney disease stage: on chronic dialysis Qualified Code(s): E10.22 - Type 1 diabetes mellitus with diabetic chronic kidney disease; N18.6 - End stage renal disease; Z99.2 - Dependence on renal dialysis Code(s): E10.9 - Type 1 diabetes mellitus without complications Status: Chronic Assessment and Plan: Continue patient's Lantus and do sliding scale insulin. The patient no longer has an insulin pump. The patient was diagnosed with diabetes at the age of 14. Will check A1c. DS: Discharge Diagnosis Discharge Diagnosis (1) Volume overload: Qualifiers: Hypervolemia type: unspecified Qualified Code(s): E87.70 - Fluid overload, unspecified Code(s): E87.70 - Fluid overload, unspecified Status: Acute Assessment and Plan: PATIENT DIALYZES Wednesday AND WEDNESDAY HAVING DIALYSIS STARTED ON MINOXIDIL LONGSTANDING UNCONTROLLED HYPERTENSION BLOOD PRESSURE IS BETTER CONTROLLED IMPROVED continue to monitor intake and output The patient is on Lasix at home. And will continue with that and will give him a little bit extra Lasix tonight IV as well. The patient does void very little. Nephrology has been consulted. The patient has dialysis on Wednesday. The patient has anasarca at this time has some pulmonary edema. Patient is admitted to observation and hopefully will received dialysis in the morning. The patient admits to taking in too much oral fluids. (2) ESRD (end stage renal disease) on dialysis: Code(s): N18.6 - End stage
== END 2020-08-28 07:02 | disposition home or self-care (01) | DRG 682 ==
LOC: ANHED 17:07 → ANHIMU 18:30
PROVIDERS: Emergency Medicine; Internal Medicine; Internal Medicine Nephrology; Nurse Practitioner; Admitting Provider Internal Medicine; Emergency Provider Emergency Medicine; PCP Physician Assistant; Visit Provider Family Medicine
DX: I12.0 Hypertensive chronic kidney disease with stage 5 chronic kidney disease or end stage renal disease (principal); N18.6 End stage renal disease; R77.8 Other specified abnormalities of plasma proteins; E87.70 Fluid overload, unspecified; E10.22 Type 1 diabetes mellitus with diabetic chronic kidney disease; Z99.2 Dependence on renal dialysis; D63.1 Anemia in chronic kidney disease; N25.0 Renal osteodystrophy; F41.9 Anxiety disorder, unspecified; F32.9 Major depressive disorder, single episode, unspecified; J45.20 Mild intermittent asthma, uncomplicated; G40.909 Epilepsy, unspecified, not intractable, without status epilepticus; Z79.4 Long term (current) use of insulin; Z79.899 Other long term (current) drug therapy; Z87.891 Personal history of nicotine dependence
CPT/HCPCS: 36415; 71046; 80048; 80053; 80069; 80074; 82948; 83036; 83540; 83550; 83605; 83735; 83880; 84100; 84439; 84443; 84480; 84484; 85025; 85027; 85610; 85730; 86706; 93005; 93970; 96372; 96374; 96375; 96376; 99285; A9270; G0257; G0378; J0360; J1644; J1756; J1815; J1940; J2060; J2270; J7030; Q5106

== ENCOUNTER 2020-09-23 12:36 | Inpatient (IN) | payer MEDICARE, MEDICAID, SELFPAY ==
[2020-09-23] VITALS (14 sets, daily range): BP systolic 169–220; BP diastolic 97–113; PULSE 79–100; RESP 13–22; TEMP 36.6–38.2; O2SAT 86–99
--- NOTE | ~2020-09-23 | XR_ITS ---
EXAMINATION: XR chest 2V DATE: 09/23/2020 13:28 INDICATION: Weakness, shortness of breath TECHNIQUE: AP and lateral views of the chest are obtained. COMPARISON: 08/25/2020 FINDINGS: A large bore right internal jugular catheter ends with its tip in the proximal right atrium . There are patchy bilateral interstitial opacities. Cardiomegaly is noted. There is no pleural effus ion or pneumothorax. IMPRESSION: 1. Cardiomegaly. 2. Patchy bilateral interstitial opacities, favor pulmonary edema over pneumonia. Reviewed, dictated and finalized at location A. IMPRESSION: 1. Cardiomegaly. 2. Patchy bilateral interstitial opacities, favor pulmonary edema over pneumoni a.
--- NOTE | ~2020-09-23 | XR_ITS ---
EXAMINATION: XR chest 1V portable INDICATION: Shortness of breath TECHNIQUE: Portable AP chest at 1451 hours COMPARISON: 09/23/2020 FINDINGS: A large bore right internal jugular catheter ends with its tip in the proximal right atrium . Cardiomegaly is noted. A mild diffuse interstitial pattern persists but has improved. There is no p leural effusion or pneumothorax. IMPRESSION: 1. Improving diffuse interstitial pattern, likely resolving pulmonary edema. 2. Cardiomegaly. Reviewed, dictated and finalized at location A.
--- NOTE | 2020-09-23 13:11 | ECG_ITS ---
Measurements Intervals [place] Rate: 97 P: 60 CA: 141 QRS: 38 QRSD: 96 T: 94 QT: 380 QTc: 484 Interpretive Statements SINUS RHYTHM POSSIBLE LEFT ATRIAL ENLARGEMENT DELAYED PRECORDIAL R/S TRANSITION BORDERLINE ST-T WAVE ABNORMALITY- HIGH LATERA LEADS BASELINE ARTIFACT- I, III, AVL, V4 BORDERLINE ECG Electronically Signed On 09-23-2020 13:15:12 CDT by Lokesh Luna D.O.
[2020-09-23 13:20] LABS: Basophils Percent Auto 0.4 % (0.2-1.2); Eosinophils Percent Auto 0.8 % (0-4.4); Hematocrit 27.7 % (42.0-52.0); Hemoglobin 9.1 g/dL (14.0-18.0); Immature Granulocyte Absolute 0.03 K/mm3 (0.00-0.031); Immature Granulocyte Percent A 0.6 % (0-0.5); Lymphocytes Absolute Auto 0.26 K/mm3 (0.9-3.2); Lymphocytes Percent Auto 5.1 % (18.3-44.2); Mean Corpuscular HGB Conc 32.9 g/dl (32-36); Mean Corpuscular Hemoglobin 32.3 pg (26-34); Mean Corpuscular Volume 98.2 fl (80-100); Mean Platelet Volume 9.5 fl (7.4-10.4); Monocytes Absolute Auto 0.4 K/mm3 (0.1-0.6); Neutrophils Absolute Auto 4.4 K/mm3 (1.3-6.7); Neutrophils Percent Auto 85.1 % (45.5-73.1); Platelet Count Result 175 k/mm3 (150-375); Red Blood Count 2.82 M/mm3 (4.6-6.20); White Blood Count 5.1 K/mm3 (4.5-10.0)
[2020-09-23 13:50] LABS: Alanine Aminotransferase 42 U/L (4-50); Albumin Level 3.8 g/dL (3.5-5.1); Alkaline Phosphatase 220 U/L (38-126); Anion Gap 11 mmol/L (8-16); Aspartate Amino Transferase 68 U/L (17-59); Bilirubin,Total 0.6 mg/dL (0.2-1.3); Blood Urea Nitrogen 33 mg/dL (9-20); Calcium 9.5 mg/dL (8.4-10.2); Carbon Dioxide 33 mmol/L (22-30); Chloride 89 mmol/L (98-107); Estimated CRCL calculation 21 ml/min; Estimated Glomerular Filt Rate 13; Glucose 185 mg/dL (65-110); Potassium 4.3 mmol/L (3.4-5.0); Sodium 133 mmol/L (137-145)
[2020-09-23] MEDS: ACETAMINOPHEN 325 MG TABLET 650 MG PO (14:17)
[2020-09-23 14:57] LABS: Add Urine Microscopic? YES; Appearance Urine Clear (Clear); Bilirubin Urine Negative (Negative); Blood Urine Negative (Negative); Color Urine Yellow (Yellow); Glucose Urine UA 3+ mg/dL (Negative); Ketones Urine 1+ mg/dL (Negative); Leukocyte Esterase Ur Negative LEU/UL (Negative); Nitrate Urine Negative (Negative); Protein Urine 3+ mg/dL (Negative); Specific Grav Ur 1.024 (1.001-1.035); Urobilinogen Urine Negative mg/dL (<2.0); WBC Urine 0-3 /hpf
[2020-09-23 15:23] LABS: Glucose Point of Care 211 mg/dl (65-105)
--- NOTE | 2020-09-23 15:40 | ED.GENADULT ---
HPI - General Adult General Chief complaint: Dizziness Stated complaint: lightheaded Time Seen by Provider: 09/23/20 13:08 History of Present Illness HPI narrative: Patient is a 40-year-old male who presents ER with lightheadedness and dizziness after dialysis. Patient also found to be hypoxic and febrile. Reports he had his Covid vaccination for the first time 2 days ago. Denies chest pain or chest pressure. Patient is falling asleep regularly. Apparently he had some anxiety and took a Valium prior to his arrival here. No known sick contacts. No chest pain or chest pressure. Related Data Home Medications Medication Instructions Recorded Confirmed albuterol sulfate [Ventolin HFA] 2 puff INHALATION Q6H PRN 11/04/19 09/23/20 hydralazine 100 mg PO TID 11/04/19 09/23/20 metoprolol tartrate 100 mg PO BID 11/04/19 09/23/20 terazosin 2 mg PO BID 11/04/19 09/23/20 Lantus U-100 Insulin 15 unit SUBCUT QA 06/01/20 09/23/20 Zoie-Zhanna Rx 1 tablet PO DAILY 06/01/20 09/23/20 amitriptyline 50 mg PO HS 06/01/20 09/23/20 calcium acetate 2 tablet PO TIDWMEAL 06/01/20 09/23/20 diazepam 5 mg PO DAILY 06/01/20 09/23/20 escitalopram oxalate 20 mg PO DAILY #0 06/01/20 09/23/20 famotidine 20 mg PO BID 06/01/20 09/23/20 furosemide 80 mg PO BID 06/01/20 09/23/20 losartan 100 mg PO DAILY 06/01/20 09/23/20 metoclopramide HCl 5 mg PO TIDWMEAL 06/01/20 09/23/20 ergocalciferol (vitamin D2) 1,250 mcg PO WEEKLY 06/02/20 09/23/20 insulin lispro [Humalog U-100 See Rx Instructions .ROUTE .COMPLEX 06/02/20 09/23/20 Insulin] phenytoin sodium extended 100 mg PO TID 06/02/20 09/23/20 [Dilantin Extended] alprazolam 0.5 mg PO HS 07/09/20 09/23/20 Allergies Allergy/AdvReac Type Severity Reaction Status Date / Time fluorescein Allergy Severe HIVES, BP Verified 09/23/20 15:30 DROPPED, SWELLING TONGUE Penicillins Allergy Unknown Unknown Verified 09/23/20 15:30 Sulfa (Sulfonamide Allergy Unknown Unknown Verified 09/23/20 15:30 Antibiotics) chlorpromazine Allergy Rash Verified 09/23/20 15:30 [From Thorazine] divalproex sodium AdvReac Confusion Verified 09/23/20 15:30 [From Depakote] Review of Systems Review of Systems: All systems reviewed & are unremarkable except as noted in HPI and below Constitutional: Constitutional: Denies chills, Reports fatigue, Reports fever(s) and Reports weakness ENT: Denies nasal congestion and Denies sore throat Cardiovascular: Cardiovascular: Denies chest pain, Denies rapid heart rate and Denies radiating jaw, neck or arm pain Respiratory: Respiratory: Denies cough, Denies dyspnea and Denies wheezing Gastrointestinal: Gastrointestinal: Denies abdominal pain, Denies nausea and Denies vomiting PMFSH Past Medical History Medical History Anemia requiring transfusions Anxiety Anxiety and depression Asthma Depression End stage renal disease End stage renal disease on dialysis peritoneal dialysis Erythropoietin deficiency anemia Hiccups Hypertension Migraines Nausea and vomiting in adult Renal osteodystrophy Type 1 diabetes diagnosis at the age of 14 Surgical History Surgical History History of appendectomy Hx of cholecystectomy Presence of peritoneal dialysis catheter Previous back surgery S/P dialysis catheter insertion Right upper chest Status post LASIK surgery of both eyes Family History Family History Mother Diabetes mellitus Cerebrovascular accident Father Hypertension Social History Social History Social History: the patient lives with his . He is disabled. The patient stated that he is on a transplant list for a kidney as well as pancreas but is currently on hold due to his illness. He has no biological children but is has 1 child that h
[2020-09-23 16:06] LABS: NT Pro B Type Natriuretic Pept > 35000 pg/mL (5-100)
--- NOTE | 2020-09-23 19:14 | PC.NURSE ---
Pt given dinner tray
--- NOTE | 2020-09-23 19:54 | PCDIET ---
This patient, Ari Zuniga, was admitted to [address] [facility] Surg Room 302-01. Patient/family oriented to hospital policies and general routines including ID bracelet, bed and alarms, visiting hours, pain management, procedures, bathroom and other care routines, personal items, smoking policy, room service/diet, and visiting hours. Information on how to activate the Rapid Response Team has been discussed. Patient/Family are encouraged to report perceived risks to care and to ask questions if they do not understand what they are told or what they should do.
--- NOTE | 2020-09-23 23:20 | PM.IMHP ---
H&P: HPI History of Present Illness Date/Time: 09/23/20 23:20 Chief Complaint: weakness Narrative: Source of information is ER records and past medical records. The patient was difficult to arouse in a poor historian. 40-year-old male with past medical history of end-stage renal disease due to uncontrolled type 1 diabetes mellitus and hypertension who presented to the ER via private vehicle after hemodialysis due to weakness , lightheadedness and dizziness. The patient had approximately 4 L of fluid removed during hemodialysis. Patient's had reported the patient had not been sleeping well at night and had been more anxious during the day so he took a dose of volume prior to coming to the ER. Since that time the patient had been lethargic. The patient reported that he has been having a cough for about 24 hours with some increased shortness of breath. When the patient arrived to the ER his oxygen saturations were ranging between 80-91% on room air. The patient was noted to be febrile with a temperature of 100.8?. The patient had received his 2nd COVID vaccine 2 days ago. he denied having any chest pain or chest pressure. He reported that his cough was nonproductive. He does not produce much urine. Review of Systems Review of Systems: 12 systems were reviewed with pertinent positives and negatives per HPI. Except as documented in the HPI, all other systems were reviewed and are negative. however the patient was a poor historian due to somnolence. [facility] Past Medical History Medical History (Updated 09/24/20 @ 00:08 by Shannon Dorado DO) Anemia requiring transfusions Anxiety Anxiety and depression Asthma Depression End stage renal disease on dialysis Erythropoietin deficiency anemia Hiccups Hypertension Migraines Nausea and vomiting in adult Renal osteodystrophy Seizure disorder (10/2019) Type 1 diabetes diagnosis at the age of 14 Surgical History Surgical History History of appendectomy Hx of cholecystectomy Presence of peritoneal dialysis catheter Previous back surgery S/P dialysis catheter insertion Right upper chest Status post LASIK surgery of both eyes Family History Family History Mother Diabetes mellitus Cerebrovascular accident Father Hypertension Social History Social History (Updated 09/23/20 @ 23:22 by Shannon Dorado DO) Social History: The patient lives with his . He is disabled. The patient stated that he is on a transplant list for a kidney as well as pancreas but is currently on hold due to his illness. He has no biological children but is has 1 child that he is raising. He adopted a child. The patient is a lifelong nonsmoker. He denies any alcohol marijuana or illicit drug use. His is the durable power county attorney for healthcare. He desires to be a full code. Smoking packs per day: 0.5 Smoking cigarettes per day: 10.0 Years smoked: 6 Smoking pack-years: 3.00 Smoking status: Former smoker Tobacco type: cigarettes Smokeless tobacco user: chewing tobacco Second hand tobacco smoke exposure: Yes Alcohol intake: former Drinks per week: 10 Substance use: never Substance use type: does not use Last use: 04/23/2019 Gender identity (if verbalized by the patient): Male Spiritual care concerns: No Meds Home Medications and Allergies Home Medications Medication Instructions Recorded Confirmed Type albuterol sulfate [Ventolin HFA] 2 puff INHALATION Q6H PRN 11/04/19 09/23/20 History hydralazine 100 mg PO TID 11/04/19 09/23/20 History terazosin 2 mg PO BID 11/04/19 09/23/20 History pantoprazole 40 mg PO Q12HR #60 tablet 11/23/19 09/23/20 Rx valproic acid 250 mg PO Q8HR #90 cap 11/23/19 09/23/20 Rx Lantus U-100 Insulin 15 unit SUBCUT QAM 06/01/20 09/23/20 History Zoie-Zhanna Rx 1 tablet PO DAILY 06/01/20 09/23/20 History ami
[2020-09-23] MEDS: carvediloL 25 MG TABLET PO (23:53)
[2020-09-23] MEDS: VALPROIC ACID 250 MG CAPSULE PO (23:53)
[2020-09-23] MEDS: AMITRIPTYLINE HCL 25 MG TABLET 50 MG PO (23:53)
[2020-09-23] MEDS: PANTOPRAZOLE 40 MG TABLET PO (23:54)
[2020-09-23] MEDS: PHENYTOIN SODIUM 100 MG CAP PO (23:54)
[2020-09-23] MEDS: TERAZOSIN HCL 1 MG CAPSULE 2 MG PO (23:54)
[2020-09-24] VITALS (14 sets, daily range): BP systolic 149–182; BP diastolic 65–110; PULSE 61–96; RESP 18–20; TEMP 0–37.2; O2SAT 93–100
[2020-09-24] MEDS: ALPRAZolam (*CRX) 0.5 MG TABLET PO ×2 (00:06→20:30)
[2020-09-24] MEDS: INSULIN GLARGINE (*BKC) 100 UNITS/ML 10 UNITS SUB-Q (00:07)
[2020-09-24] MEDS: INSULIN ASPART (*BKC) 100 UNITS/ML 6 UNITS SUB-Q (00:07)
[2020-09-24 01:37] LABS: Glucose Point of Care 325 mg/dl (65-105)
[2020-09-24] MEDS: VALPROIC ACID 250 MG CAPSULE PO ×3 (05:54→20:30)
--- NOTE | 2020-09-24 07:36 | PM.CNNEP ---
Assessment and Plan Assessment and plan (1) ESRD (end stage renal disease) on dialysis: Code(s): N18.6 - End stage renal disease; Z99.2 - Dependence on renal dialysis Status: Acute Assessment and Plan: Ari has end-stage renal disease. He gets dialysis 3 times a week. He has a lot of trouble with fluids and salt intake and so has large weight gains between treatments. He has not been to his dry weight for a little while. It has never really clear if the dry weight is really accurate or not because he always has some swelling. Currently he looks volume overloaded. We will take fluid off today. (2) Person under investigation for COVID-19: Code(s): Z20.822 - Contact with and (suspected) exposure to COVID-19 Status: Acute Assessment and Plan: The patient had a temperature a 100.8? and he has chills with infiltrates. This could be traditional pneumonia but could also be COVID. He is on isolation right now. (3) Hypoxia: Code(s): R09.02 - Hypoxemia Status: Acute Assessment and Plan: His O2 sats dropped below 90 a couple of times overnight. He is on oxygen now. (4) Uncontrolled hypertension: Code(s): I10 - Essential (primary) hypertension Status: Acute Assessment and Plan: His blood pressure has been difficult to control. Part of this might be the volume overload. He will get his routine medications and we will take more fluid off today and reassess tomorrow. (5) Volume overload: Qualifiers: Hypervolemia type: unspecified Qualified Code(s): E87.70 - Fluid overload, unspecified Code(s): E87.70 - Fluid overload, unspecified Status: Acute Assessment and Plan: The patient has volume overload. He left 2 kilos above his dry weight from dialysis yesterday. We will take more fluid off today and do a dialysis again tomorrow to keep him on schedule. (6) Renal osteodystrophy: Code(s): N25.0 - Renal osteodystrophy Status: Acute Assessment and Plan: Will check a renal panel in the morning (7) Erythropoietin deficiency anemia: Code(s): D63.1 - Anemia in chronic kidney disease Status: Acute Assessment and Plan: hemoglobin is 9.1. He will get Epogen On Wednesday. (8) Type 1 diabetes mellitus: Qualifiers: Diabetes mellitus complication status: with kidney complications Diabetes mellitus complication detail: with chronic kidney disease Chronic kidney disease stage: on chronic dialysis Qualified Code(s): E10.22 - Type 1 diabetes mellitus with diabetic chronic kidney disease; N18.6 - End stage renal disease; Z99.2 - Dependence on renal dialysis Code(s): E10.9 - Type 1 diabetes mellitus without complications Status: Acute Assessment and Plan: on Accu-Cheks and sliding-scale insulin History of Present Illness Reason for Consult Consult date: 09/24/20 Chief Complaint Chief complaint: COVID PUI, Hypoxia, Pneumonia History of Present Illness Narrative: Ari is a very pleasant 40-year-old gentleman who has multiple medical problems including diabetes type 1 with frequent episodes of DKA and general poor control of his sugars, end-stage renal disease on dialysis 3 times a week, chronic volume overload because of excessive water drinking and salt intake, anemia, anxiety, depression, anemia, renal osteodystrophy, seizure disorder in the past, migraines, hypertension. The patient went to dialysis yesterday. He was 6L over his dry weight. They were able to get 4L off but still left above his dry weight. On the way home the patient was still short of breath and he developed some chilling. His drove him to the emergency room. He had a temperature a 100.8?. Chest x-ray showed infiltrates. He was swabbed for COVID and admitted to the floor. He is on respiratory isolation. Patient is chilling right now. He says he is not short of og
[2020-09-24 08:24] LABS: Glucose Point of Care 324 mg/dl (65-105)
[2020-09-24] MEDS: diazePAM (*CRX) 5 MG TABLET PO (09:08)
[2020-09-24] MEDS: HEPARIN SODIUM 5,000 UNITS/ML VIAL 5000 UNITS SUB-Q ×2 (09:09→20:31)
[2020-09-24] MEDS: PHENYTOIN SODIUM 100 MG CAP PO ×3 (09:09→20:30)
[2020-09-24] MEDS: TERAZOSIN HCL 1 MG CAPSULE 2 MG PO ×2 (09:09→20:30)
[2020-09-24] MEDS: carvediloL 25 MG TABLET PO ×2 (09:09→20:30)
[2020-09-24] MEDS: FUROSEMIDE 80 MG TABLET PO ×2 (09:10→17:46)
[2020-09-24] MEDS: ESCITALOPRAM OXALATE 10 MG TABLET 20 MG PO (09:10)
[2020-09-24] MEDS: METOCLOPRAMIDE HCL 5 MG TABLET PO ×3 (09:10→17:46)
[2020-09-24] MEDS: hydrALAZINE HCL 50 MG TABLET 100 MG PO ×3 (09:10→17:45)
[2020-09-24] MEDS: PANTOPRAZOLE 40 MG TABLET PO ×2 (09:10→20:30)
[2020-09-24] MEDS: CALCIUM ACETATE 667 MG TABLET 1334 MG PO ×3 (09:10→17:51)
[2020-09-24] MEDS: LOSARTAN POTASSIUM 100 MG TABLET PO (09:11)
[2020-09-24] MEDS: VITAMIN B CMPLX/VIT C/FOLIC AC 1 CAPSULE 1 CAP PO (09:11)
[2020-09-24] MEDS: INSULIN ASPART (*BKC) 100 UNITS/ML SUB-Q (09:16)
[2020-09-24] MEDS: INSULIN ASPART (*BKC) 100 UNITS/ML 15 UNITS SUB-Q ×2 (09:16→12:16)
[2020-09-24] MEDS: INSULIN GLARGINE (*BKC) 100 UNITS/ML 15 UNITS SUB-Q (09:17)
[2020-09-24] MEDS: FAMOTIDINE 20 MG TABLET PO ×2 (09:18→17:46)
[2020-09-24 12:15] LABS: Glucose Point of Care 135 mg/dl (65-105)
--- NOTE | 2020-09-24 13:55 | PC.NURSE ---
patient to dialysis room 308 by bed
[2020-09-24] MEDS: DEXTROSE 50% 25 GM/50 ML SYRINGE IV PUSH (16:22)
--- NOTE | 2020-09-24 16:26 | PM.IMPN ---
Progress Note: A&P Assessment and Plan (1) Pneumonia: Qualifiers: Laterality: bilateral Lung location: unspecified part of lung Pneumonia type: due to unspecified organism Qualified Code(s): J18.9 - Pneumonia, unspecified organism Code(s): J18.9 - Pneumonia, unspecified organism Status: Acute Assessment and Plan: patient's x-ray demonstrated pneumonia versus pulmonary edema. Radiology interpretation suggest more pulmonary edema but given the patient's presence of fever clinical picture favors pneumonia. The patient could certainly be having fever from his recent 2nd COVID vaccine. Either way of treat the patient with empiric antibiotic therapy with Rocephin and doxycycline. Patient did not receive azithromycin due to his QTC that was at the upper limit of normal. Blood cultures are pending. (2) Person under investigation for COVID-19: Code(s): Z20.822 - Contact with and (suspected) exposure to COVID-19 Status: Acute Assessment and Plan: 09/24/20 16:26 patient with history of end-stage renal disease on hemodialysis, type 1 diabetes,being tired more fatigue and anxious, and shortness of breath, with concern the patient may COVID-19 as his oxygen saturation 80-19 room, patient seen in dialysis currently remains stable has no complaint, follow-up on COVID-19 test and further recommendation to follow. (3) Hypoxia: Code(s): R09.02 - Hypoxemia Status: Acute Assessment and Plan: Likely multifactorial due to the patient taking his home volume prior to coming to the ER in addition to pneumonia and or volume overload. Will treat empirically for pneumonia. Nephrology has been consulted for dialysis management. The patient does have generalized anasarca and may still be volume overloaded despite having 4 L removed in hemodialysis today. Will defer management to Nephrology. (4) ESRD (end stage renal disease) on dialysis: Code(s): N18.6 - End stage renal disease; Z99.2 - Dependence on renal dialysis Status: Acute Assessment and Plan: Nephrology has been consulted for dialysis management. (5) Uncontrolled hypertension: Code(s): I10 - Essential (primary) hypertension Status: Acute Assessment and Plan: it is unclear if the patient had his antihypertensive prior to hemodialysis. Will resume the patient's home antihypertensive regimen. Will provide p.r.n. IV hydralazine. (6) Type 1 diabetes mellitus: Qualifiers: Diabetes mellitus complication status: with kidney complications Diabetes mellitus complication detail: with chronic kidney disease Chronic kidney disease stage: on chronic dialysis Qualified Code(s): E10.22 - Type 1 diabetes mellitus with diabetic chronic kidney disease; N18.6 - End stage renal disease; Z99.2 - Dependence on renal dialysis Code(s): E10.9 - Type 1 diabetes mellitus without complications Status: Acute Assessment and Plan: patient is significantly hyperglycemic. Will give the patient 1 extra dose of Lantus 10 units subq now and will resume patient's home Lantus in a.m.. Will resume mealtime bolus insulin as well as sliding scale insulin with meals. Accu-Cheks and hypoglycemia protocol have been ordered. Time Spent With Patient Time with patient: 15 - 25 minutes Subjective Date/time seen: 09/24/20 16:26 patient with history of end-stage renal disease on hemodialysis, type 1 diabetes,being tired more fatigue and anxious, and shortness of breath, with concern the patient may COVID-19 as his oxygen saturation 80-19 room, patient seen in dialysis currently remains stable has no complaint, follow-up on COVID-19 test and further recommendation to follow. Review of Systems Review of Systems: All systems reviewed & are unremarkable except as noted in HPI and below Exam Narrative: Patient is comfortable, NAD HEENT: eyes are clear and none icter
[2020-09-24 16:30] LABS: Glucose Point of Care 35 mg/dl (65-105)
--- NOTE | 2020-09-24 16:41 | PC.NURSE ---
Patient in dialysis. The RN called to check blood sugar since patient felt low . blood sugar was 35. Gave dextrose IVP per protocol.
[2020-09-24 16:44] LABS: Glucose Point of Care 93 mg/dl (65-105)
[2020-09-24 17:27] LABS: Glucose Point of Care 88 mg/dl (65-105)
[2020-09-24 18:17] LABS: SARS-CoV-2 RNA PCR Negative
[2020-09-24] MEDS: AMITRIPTYLINE HCL 25 MG TABLET 50 MG PO (20:30)
[2020-09-24 20:37] LABS: Glucose Point of Care 115 mg/dl (65-105)
[2020-09-25] VITALS (20 sets, daily range): BP systolic 160–191; BP diastolic 85–111; PULSE 68–98; RESP 16–20; TEMP 36–36.7; O2SAT 96–100
[2020-09-25] MEDS: VALPROIC ACID 250 MG CAPSULE PO ×2 (04:29→14:23)
[2020-09-25 06:48] LABS: Hematocrit 27.2 % (42.0-52.0); Hemoglobin 8.9 g/dL (14.0-18.0); Mean Corpuscular HGB Conc 32.7 g/dl (32-36); Mean Corpuscular Hemoglobin 32.2 pg (26-34); Mean Corpuscular Volume 98.6 fl (80-100); Mean Platelet Volume 10.4 fl (7.4-10.4); Platelet Count Result 186 k/mm3 (150-375); Red Blood Count 2.76 M/mm3 (4.6-6.20); Red Cell Distribution Width 13.7 % (11.5-14.5); White Blood Count 3.5 K/mm3 (4.5-10.0)
[2020-09-25 07:13] LABS: Anion Gap 10 mmol/L (8-16); Blood Urea Nitrogen 61 mg/dL (9-20); Calcium 8.7 mg/dL (8.4-10.2); Carbon Dioxide 29 mmol/L (22-30); Chloride 92 mmol/L (98-107); Estimated CRCL calculation 14 ml/min; Estimated Glomerular Filt Rate 8; Glucose 104 mg/dL (65-110); Phosphorus 7.6 mg/dL (2.5-4.5); Potassium 4.8 mmol/L (3.4-5.0); Sodium 131 mmol/L (137-145)
[2020-09-25 07:43] LABS: Glucose Point of Care 173 mg/dl (65-105)
[2020-09-25] MEDS: CALCIUM ACETATE 667 MG TABLET 1334 MG PO ×2 (08:43→11:36)
[2020-09-25] MEDS: LOSARTAN POTASSIUM 100 MG TABLET PO (08:43)
[2020-09-25] MEDS: PANTOPRAZOLE 40 MG TABLET PO (08:43)
[2020-09-25] MEDS: ESCITALOPRAM OXALATE 10 MG TABLET 20 MG PO (08:43)
[2020-09-25] MEDS: hydrALAZINE HCL 50 MG TABLET 100 MG PO ×2 (08:43→11:36)
[2020-09-25] MEDS: METOCLOPRAMIDE HCL 5 MG TABLET PO ×2 (08:43→11:36)
[2020-09-25] MEDS: FUROSEMIDE 80 MG TABLET PO (08:43)
[2020-09-25] MEDS: TERAZOSIN HCL 1 MG CAPSULE 2 MG PO (08:43)
[2020-09-25] MEDS: carvediloL 25 MG TABLET PO (08:44)
[2020-09-25] MEDS: diazePAM (*CRX) 5 MG TABLET PO (08:44)
[2020-09-25] MEDS: PHENYTOIN SODIUM 100 MG CAP PO ×2 (08:44→14:23)
[2020-09-25] MEDS: INSULIN GLARGINE (*BKC) 100 UNITS/ML 15 UNITS SUB-Q (08:44)
[2020-09-25] MEDS: HEPARIN SODIUM 5,000 UNITS/ML VIAL 5000 UNITS SUB-Q (08:45)
[2020-09-25] MEDS: minoxidiL 2.5 MG TABLET PO (10:11)
[2020-09-25] MEDS: VITAMIN B CMPLX/VIT C/FOLIC AC 1 CAPSULE 1 CAP PO (10:11)
--- NOTE | 2020-09-25 11:09 | PM.PNNEP ---
Progress Note: A&P Assessment and Plan (1) ESRD (end stage renal disease) on dialysis: Code(s): N18.6 - End stage renal disease; Z99.2 - Dependence on renal dialysis Status: Acute Assessment and Plan: Ari has end-stage renal disease. He gets dialysis 3 times a week. he has had a lot of fluid taken off. We will do another dialysis today and take more fluid off. (2) Person under investigation for COVID-19: Code(s): Z20.822 - Contact with and (suspected) exposure to COVID-19 Status: Acute Assessment and Plan: This was negative (3) Hypoxia: Code(s): R09.02 - Hypoxemia Status: Acute Assessment and Plan: His O2 sats dropped below 90 a couple of times overnight. He is on oxygen now. (4) Uncontrolled hypertension: Code(s): I10 - Essential (primary) hypertension Status: Acute Assessment and Plan: His blood pressure has been difficult to control. fluid removal did not help although he still has a little bit to go. Will start minoxidil 2.5 mg twice a day. If the blood pressure goes too low we can always stop something else that he is on. (5) Volume overload: Qualifiers: Hypervolemia type: unspecified Qualified Code(s): E87.70 - Fluid overload, unspecified Code(s): E87.70 - Fluid overload, unspecified Status: Acute Assessment and Plan: The patient has volume overload. Continued to encourage patient not to drink as much fluid and eat as much salt between treatments. (6) Renal osteodystrophy: Code(s): N25.0 - Renal osteodystrophy Status: Acute Assessment and Plan: phosphorus level very high. We discussed low phosphorus diet and compliance with binders. He is on calcium acetate two pills with each meal. (7) Erythropoietin deficiency anemia: Code(s): D63.1 - Anemia in chronic kidney disease Status: Acute Assessment and Plan: hemoglobin is 9.1. He will get Epogen on Wednesday. (8) Type 1 diabetes mellitus: Qualifiers: Diabetes mellitus complication status: with kidney complications Diabetes mellitus complication detail: with chronic kidney disease Chronic kidney disease stage: on chronic dialysis Qualified Code(s): E10.22 - Type 1 diabetes mellitus with diabetic chronic kidney disease; N18.6 - End stage renal disease; Z99.2 - Dependence on renal dialysis Code(s): E10.9 - Type 1 diabetes mellitus without complications Status: Acute Assessment and Plan: on Accu-Cheks and sliding-scale insulin Subjective Date/time seen: 09/25/20 11:09 Interval history: Ari feels better today. No more chills overnight. His breathing is better. Review of Systems Cardiovascular: Cardiovascular: Reports no additional cardiovascular complaints Respiratory: Respiratory: Reports no additional respiratory complaints Gastrointestinal: Gastrointestinal: Reports no additional gastrointestinal complaints Genitourinary: Genitourinary: Reports no additional male genitourinary complaints Exam Narrative: WDWN in NAD skin no rash head ncat lungs clear cor reg no rub or gallop abd BS+ nontender and soft ext One to 2+ bilateral edema. Objective Data Vital Signs Vital Signs: Vital Signs - 24 hr 09/24/20 12:00 09/24/20 13:55 09/24/20 14:00 Temperature 37.2 C 36.8 C Pulse Rate 78 71 73 Respiratory Rate 20 20 Blood Pressure 151/88 H 166/73 H 158/74 H Pulse Oximetry 98 09/24/20 15:00 09/24/20 16:00 09/24/20 16:30 Temperature 36.3 C L Pulse Rate 70 66 64 Respiratory Rate 20 Blood Pressure 178/65 H 161/71 H 164/71 H Pulse Oximetry 100 09/24/20 17:00 09/24/20 17:41 09/24/20 20:00 Temperature 37.0 C 36.4 C L Pulse Rate 62 61 64 Respiratory Rate 20 18 Blood Pressure 161/75 H 164/70 H 149/90 H Pulse Oximetry 100 09/24/20 20:30 09/25/20 00:00 09/25/20 06:00 Temperature 36.3
[2020-09-25 11:16] LABS: Glucose Point of Care 228 mg/dl (65-105)
[2020-09-25] MEDS: INSULIN GLARGINE (*BKC) 100 UNITS/ML SUB-Q (11:34)
[2020-09-25] MEDS: INSULIN ASPART (*BKC) 100 UNITS/ML 10 UNITS SUB-Q (11:34)
--- NOTE | 2020-09-25 12:35 | PCCDE ---
Chart reviewed due notification received of BG <40mg/dl yesterday. Pt with T1DM and ESRD. Weight is 85.6kg. Current insulin orders: 09/23 moderate dose correction 09/24 15 units Lantus AM, 15 units Novolog TID WM Using 0.3 units/kg for ESRD to calculate Total daily insulin dose. TDD=25 units, 50% basal=13 units, other 50% divided for meals=4 units Novolog. Called and spoke to Dr Menon with recommendations and he agreed to decrease Novolog to 4 units TID WM. Also discussed with GISELLE Olmos.
[2020-09-25 14:49] LABS: Glucose Point of Care 222 mg/dl (65-105)
--- NOTE | 2020-09-25 15:23 | PM.DS ---
DS: Admitting Diagnosis Admitting Diagnosis Chief Complaint: weakness DS: Discharge Diagnosis Discharge Diagnosis (1) Pneumonia: Qualifiers: Laterality: bilateral Lung location: unspecified part of lung Pneumonia type: due to unspecified organism Qualified Code(s): J18.9 - Pneumonia, unspecified organism Code(s): J18.9 - Pneumonia, unspecified organism Status: Acute Assessment and Plan: patient's x-ray demonstrated pneumonia versus pulmonary edema. Radiology interpretation suggest more pulmonary edema but given the patient's presence of fever clinical picture favors pneumonia. The patient could certainly be having fever from his recent 2nd COVID vaccine. Either way of treat the patient with empiric antibiotic therapy with Rocephin and doxycycline. Patient did not receive azithromycin due to his QTC that was at the upper limit of normal. Blood cultures are pending. (2) Person under investigation for COVID-19: Code(s): Z20.822 - Contact with and (suspected) exposure to COVID-19 Status: Acute Assessment and Plan: 09/24/20 16:26 patient with history of end-stage renal disease on hemodialysis, type 1 diabetes,being tired more fatigue and anxious, and shortness of breath, with concern the patient may COVID-19 as his oxygen saturation 80-19 room, patient seen in dialysis currently remains stable has no complaint, follow-up on COVID-19 test and further recommendation to follow. (3) Hypoxia: Code(s): R09.02 - Hypoxemia Status: Acute Assessment and Plan: Likely multifactorial due to the patient taking his home volume prior to coming to the ER in addition to pneumonia and or volume overload. Will treat empirically for pneumonia. Nephrology has been consulted for dialysis management. The patient does have generalized anasarca and may still be volume overloaded despite having 4 L removed in hemodialysis today. Will defer management to Nephrology. (4) ESRD (end stage renal disease) on dialysis: Code(s): N18.6 - End stage renal disease; Z99.2 - Dependence on renal dialysis Status: Acute Assessment and Plan: Nephrology has been consulted for dialysis management. (5) Uncontrolled hypertension: Code(s): I10 - Essential (primary) hypertension Status: Acute Assessment and Plan: it is unclear if the patient had his antihypertensive prior to hemodialysis. Will resume the patient's home antihypertensive regimen. Will provide p.r.n. IV hydralazine. (6) Type 1 diabetes mellitus: Qualifiers: Diabetes mellitus complication status: with kidney complications Diabetes mellitus complication detail: with chronic kidney disease Chronic kidney disease stage: on chronic dialysis Qualified Code(s): E10.22 - Type 1 diabetes mellitus with diabetic chronic kidney disease; N18.6 - End stage renal disease; Z99.2 - Dependence on renal dialysis Code(s): E10.9 - Type 1 diabetes mellitus without complications Status: Acute Assessment and Plan: patient is significantly hyperglycemic. Will give the patient 1 extra dose of Lantus 10 units subq now and will resume patient's home Lantus in a.m.. Will resume mealtime bolus insulin as well as sliding scale insulin with meals. Accu-Cheks and hypoglycemia protocol have been ordered. DS: Summary Hospital Course Reason for hospitalization: Chief Complaint: weakness Narrative: Source of information is ER records and past medical records. The patient was difficult to arouse in a poor historian. 40-year-old male with past medical history of end-stage renal disease due to uncontrolled type 1 diabetes mellitus and hypertension who presented to the ER via private vehicle after hemodialysis due to weakness , lightheadedness and dizziness. The patient had approximately 4 L of fluid removed during hemodialysis. Patient's had reported the patient had
[2020-09-25] MEDS: EPOETIN ALFA-EPBX 10,000 UNITS/ML VIAL 10000 UNITS IV PUSH (16:25)
--- NOTE | 2020-09-25 16:59 | PM.EVENT ---
Event Note Event Note Event Note: on HD deb it well. bp still high. will continue to remove fluid. seen at 4:40pm
== END 2020-09-25 19:45 | disposition home or self-care (01) | DRG 193 ==
LOC: ANHED 13:26 → ANH3MEDSUR 17:45
PROVIDERS: Internal Medicine Nephrology; Admitting Provider Internal Medicine; Emergency Provider Emergency Medicine; PCP Physician Assistant; Visit Provider Family Medicine
DX: J18.9 Pneumonia, unspecified organism (principal); N18.6 End stage renal disease; I12.0 Hypertensive chronic kidney disease with stage 5 chronic kidney disease or end stage renal disease; Z20.822 Contact with and (suspected) exposure to COVID-19; R09.02 Hypoxemia; E10.22 Type 1 diabetes mellitus with diabetic chronic kidney disease; D63.1 Anemia in chronic kidney disease; E10.65 Type 1 diabetes mellitus with hyperglycemia; Z99.2 Dependence on renal dialysis; E87.70 Fluid overload, unspecified; N25.0 Renal osteodystrophy; F17.220 Nicotine dependence, chewing tobacco, uncomplicated; F41.9 Anxiety disorder, unspecified; F32.9 Major depressive disorder, single episode, unspecified; G40.909 Epilepsy, unspecified, not intractable, without status epilepticus; G43.909 Migraine, unspecified, not intractable, without status migrainosus; J45.909 Unspecified asthma, uncomplicated; Z79.4 Long term (current) use of insulin; Z79.899 Other long term (current) drug therapy
CPT/HCPCS: 36415; 71045; 71046; 80053; 80069; 81001; 82948; 83880; 85025; 85027; 86140; 87040; 93005; 96365; 96368; 99285; A9270; C9803; G0257; G0378; J0696; J1644; J1815; J7030; Q5106; U0003; U0005

== ENCOUNTER 2020-11-06 17:21 | Inpatient (IN) | payer MEDICARE, MEDICAID, SELFPAY ==
--- NOTE | ~2020-11-06 | XR_ITS ---
XR chest 1V portable DATE: 11/06/2020 18:21 INDICATION: Pneumonia. Asthma. Hypertension. Diabetes mellitus. TECHNIQUE: Portable AP chest on 11/06/2020 at 1813 hours COMPARISON: 09/25/2020 portable AP chest on 1451 hours FINDINGS: There is a right central venous line with distal tip overlying the upper right atrium. No pneumothorax. There are patchy bilateral pulmonary infiltrates of the mid and lower lung zones. No pleural effusi on. Borderline heart size. IMPRESSION: Patchy bilateral pulmonary infiltrates, increased since 09/22/2020 Reviewed, dictated and finalized at location A.
[2020-11-06 17:31] VITALS: BMI 26.0
[2020-11-06 17:32] VITALS: BP 167/97; PULSE 92; RESP 20; TEMP 37.9; O2SAT 92
[2020-11-06 17:55] VITALS: BMI 26.2
--- NOTE | 2020-11-06 17:57 | ADMGEN ---
This patient, Ari Zuniga, was admitted to 3 [facility] Surg Room 330-01. Patient/family oriented to hospital policies and general routines including ID bracelet, bed and alarms, visiting hours, pain management, procedures, bathroom and other care routines, personal items, smoking policy, room service/diet, and visiting hours. Information on how to activate the Rapid Response Team has been discussed. Patient/Family are encouraged to report perceived risks to care and to ask questions if they do not understand what they are told or what they should do.
--- NOTE | 2020-11-06 18:00 | PM.IMHP ---
H&P: HPI History of Present Illness Date/Time: 11/06/20 18:00 this is a 40-year-old female patient who has end-stage renal disease and is typically on dialysis Wednesday and Wednesday. The patient went to [facility] and complained of shortness of breath. The patient has been lethargic. The patient had his last dialysis on Wednesday but did not go to dialysis today because he was so short of breath. The patient had a low white count of 4.1. Glucose 134. BUN 38 creatinine 7.49. Potassium 4.4. Magnesium 2.2 CT of the brain at [facility] no is suggestion of acute intracranial bleed. White matter changes old lacunar infarct left central basal ganglia. Paranasal sinus disease. Chest x-ray was read as cardiomegaly right IJ dialysis catheter tip at the caval atrial junction. Patchy infiltrates in the orifice of the left lung cannot exclude underlining pneumonia. No significant pleural effusion no pneumothorax. Lactic was normal bowel pork acid 19.9 and fentanyl 2.2 which both are low. The patient was given antibiotics at [facility] for possibility of pneumonia. Patient was requiring oxygen at 2 L at [facility] [place]. Nephrology had been consulted. Nephrology agreed to consult on the patient if he was brought to [facility]. The patient was given Tylenol, hydralazine and Lasix at [facility]. The patient is being admitted to inpatient status on the date of service of 11/06/2020. Chief Complaint: Shortness of breath Review of Systems Review of Systems: All systems reviewed & are unremarkable except as noted in HPI and below Constitutional: Constitutional: Reports as per HPI and Reports no additional constitutional complaints Eyes: Eyes: Reports as per HPI and Reports no additional eye complaints ENT: Reports system reviewed and no additional complaints, except as documented and Reports Normal hearing present Cardiovascular: Cardiovascular: Reports no additional cardiovascular complaints Respiratory: Respiratory: Reports no additional respiratory complaints and Reports no additional respiratory complaints Gastrointestinal: Gastrointestinal: Reports as per HPI and Reports no additional gastrointestinal complaints Musculoskeletal: Musculoskeletal: Reports no additional musculoskeletal complaints Integumentary/Breasts: Skin/Breast: Reports system reviewed and no additional complaints, except as docu and Reports as per HPI Neurologic: Reports system reviewed and no additional complaints, except as documented, Reports as per HPI and Reports Normal hearing present Psychiatric: Psychiatric: Reports no additional psychiatric complaints and Reports as per HPI Endocrine: Endocrine: Reports no additional endocrine complaints Hematologic/Lymphatic: Hematologic/Lymphatic: Reports no additional hematologic/lymphatic complaints Allergic/Immunologic: Allergic/Immunologic: Reports no additional allergic/immunologic complaints PMFSH Past Medical History Medical History Anemia requiring transfusions Anxiety Anxiety and depression Asthma Depression End stage renal disease on dialysis 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
[2020-11-06 18:19] VITALS: O2SAT 92
[2020-11-06 19:08] LABS: Anion Gap 18 mmol/L (8-16); Blood Urea Nitrogen 48 mg/dL (9-20); Calcium 8.7 mg/dL (8.4-10.2); Carbon Dioxide 24 mmol/L (22-30); Chloride 92 mmol/L (98-107); Estimated CRCL calculation 13 ml/min; Estimated Glomerular Filt Rate 8; Glucose 150 mg/dL (65-110); Lactic Acid Reflex 0.7 mmol/L (0.7-2.1); Magnesium 2.2 mg/dL (1.6-2.3); Phosphorus 8.1 mg/dL (2.5-4.5); Potassium 4.9 mmol/L (3.4-5.0); Sodium 134 mmol/L (137-145)
[2020-11-06 20:00] VITALS: BP 186/96; PULSE 91; RESP 20; TEMP 36.5; O2SAT 90
[2020-11-06] MEDS: VALPROIC ACID 250 MG CAPSULE PO (21:28)
[2020-11-06] MEDS: PHENYTOIN SODIUM 100 MG CAP PO (21:28)
[2020-11-06] MEDS: AMITRIPTYLINE HCL 25 MG TABLET 50 MG PO (21:28)
[2020-11-06 21:51] LABS: Hemoglobin A1C 6.6 % (<5.7)
[2020-11-06 22:33] LABS: Glucose Point of Care 146 mg/dl (65-105)
[2020-11-07] VITALS (27 sets, daily range): BP systolic 160–205; BP diastolic 80–108; PULSE 87–111; RESP 20–24; TEMP 35.8–37.2; O2SAT 90–97
[2020-11-07] MEDS: VALPROIC ACID 250 MG CAPSULE PO ×3 (05:32→21:10)
[2020-11-07 07:02] LABS: Basophils Percent Auto 0.4 % (0.2-1.2); Eosinophils Absolute Auto 0.1 K/mm3 (0-0.3); Eosinophils Percent Auto 1.9 % (0-4.4); Hemoglobin 8.2 g/dL (14.0-18.0); Immature Granulocyte Absolute 0.03 K/mm3 (0.00-0.031); Immature Granulocyte Percent A 0.6 % (0-0.5); Lymphocytes Absolute Auto 0.42 K/mm3 (0.9-3.2); Lymphocytes Percent Auto 7.9 % (18.3-44.2); Mean Corpuscular HGB Conc 32.8 g/dl (32-36); Mean Corpuscular Hemoglobin 32.4 pg (26-34); Mean Corpuscular Volume 98.8 fl (80-100); Mean Platelet Volume 9.5 fl (7.4-10.4); Monocytes Absolute Auto 0.4 K/mm3 (0.1-0.6); Monocytes Percent Auto 7.2 % (2.6-8.5); Neutrophils Absolute Auto 4.4 K/mm3 (1.3-6.7); Platelet Count Result 173 k/mm3 (150-375); Red Blood Count 2.53 M/mm3 (4.6-6.20); Red Cell Distribution Width 15.5 % (11.5-14.5); White Blood Count 5.3 K/mm3 (4.5-10.0)
[2020-11-07 07:30] LABS: Anion Gap 19 mmol/L (8-16); Blood Urea Nitrogen 54 mg/dL (9-20); Calcium 8.4 mg/dL (8.4-10.2); Carbon Dioxide 24 mmol/L (22-30); Chloride 93 mmol/L (98-107); Estimated CRCL calculation 12 ml/min; Estimated Glomerular Filt Rate 7; Glucose 170 mg/dL (65-110); Lactate Dehydrogenase 690 U/L (313-618); Phosphorus 8.2 mg/dL (2.5-4.5); Potassium 5.1 mmol/L (3.4-5.0); Sodium 136 mmol/L (137-145)
[2020-11-07 08:00] LABS: Glucose Point of Care 182 mg/dl (65-105)
--- NOTE | 2020-11-07 08:16 | P.PNIM_ITS ---
Progress Note: A&P Assessment and Plan (1) Person under investigation for COVID-19: Code(s): Z20.822 - Contact with and (suspected) exposure to COVID-19 Status: Acute Assessment and Plan: * rapid COVID at [facility] was negative. * PCR here pending * contact and droplet isolation until results to rule out * Complaints of SOB * Chest xray shows patchy bilateral infiltrates increased since 10/12 * Supplemental oxygen to maintain saturations >92% (2) Volume overload: Qualifiers: Hypervolemia type: unspecified Qualified Code(s): E87.70 - Fluid overload, unspecified Code(s): E87.70 - Fluid overload, unspecified Status: Acute Assessment and Plan: * dialysis on Wednesday. * Nephrology has been consulted thank you * Trend electrolytes. * IV Lasix, p.o. Lasix at home * makes very little urine * Strict I&Os (3) Type 1 diabetes mellitus: Qualifiers: Chronic kidney disease stage: on chronic dialysis Diabetes mellitus complication detail: with chronic kidney disease Diabetes mellitus complication status: with kidney complications Qualified Code(s): E10.22 - Type 1 diabetes mellitus with diabetic chronic kidney disease; N18.6 - End stage renal disease; Z99.2 - Dependence on renal dialysis Code(s): E10.9 - Type 1 diabetes mellitus without complications Status: Acute Assessment and Plan: * Current glucose 170 * Accu-Cheks AC and HS. * Sliding scale insulin. * A1c 6.6 * Continue home Lantus 15 units HS, hold lispro for now * Trend labs * Adjust medications as needed (4) Asthma: Qualifiers: Asthma complication type: uncomplicated Asthma persistence: intermittent Asthma severity: mild Qualified Code(s): J45.20 - Mild intermittent asthma, uncomplicated Code(s): J45.909 - Unspecified asthma, uncomplicated Status: Chronic Assessment and Plan: * Continue with albuterol PRN (5) Seizure disorder: Code(s): G40.909 - Epilepsy, unspecified, not intractable, without status epilepticus Status: Acute Assessment and Plan: * Continue home medications valproic acid 250mg PO Q8hr, phenytoin 100mg PO TID * Lab indicate levels are low. * follow-up neurology outpatient * Seizure precautions * possible medication adjustments (6) End stage renal disease: Code(s): N18.6 - End stage renal disease Status: Chronic Assessment and Plan: * dialysis Wednesday and Wednesday missed 11/06/20 * Last treatment 11/04/20 * repeat his chest x-ray shows increase infiltrates. * Nephrology consulted thank you * K 5.1, PHos 8.2, BUN 54, Creatinine 8.50 (11/07/20) * Trend labs (7) Anxiety: Code(s): F41.9 - Anxiety disorder, unspecified Status: Chronic Assessment and Plan: * Continue with patient's home medications * Alprazolam filled in July will continue this (8) Depression: Code(s): F32.9 - Major depressive disorder, single episode, unspecified Status: Chronic Assessment and Plan: * Continue with home medication of Lexapro (9) Hypertension: Qualifiers: Hypertension type: essential hypertension Qualified Code(s): I10 - Essential (primary) hypertension Code(s): I10 - Essential (primary) hypertension Status: Chronic As
--- NOTE | 2020-11-07 08:16 | PM.IMPN ---
Progress Note: A&P Assessment and Plan (1) Person under investigation for COVID-19: Code(s): Z20.822 - Contact with and (suspected) exposure to COVID-19 Status: Acute Assessment and Plan: rapid COVID at [facility] was negative. PCR here pending contact and droplet isolation until results to rule out Complaints of SOB Chest xray shows patchy bilateral infiltrates increased since 10/12 Supplemental oxygen to maintain saturations >92% (2) Volume overload: Qualifiers: Hypervolemia type: unspecified Qualified Code(s): E87.70 - Fluid overload, unspecified Code(s): E87.70 - Fluid overload, unspecified Status: Acute Assessment and Plan: dialysis on Wednesday. Nephrology has been consulted thank you Trend electrolytes. IV Lasix, p.o. Lasix at home makes very little urine Strict I&Os (3) Type 1 diabetes mellitus: Qualifiers: Chronic kidney disease stage: on chronic dialysis Diabetes mellitus complication detail: with chronic kidney disease Diabetes mellitus complication status: with kidney complications Qualified Code(s): E10.22 - Type 1 diabetes mellitus with diabetic chronic kidney disease; N18.6 - End stage renal disease; Z99.2 - Dependence on renal dialysis Code(s): E10.9 - Type 1 diabetes mellitus without complications Status: Acute Assessment and Plan: Current glucose 170 Accu-Cheks AC and HS. Sliding scale insulin. A1c 6.6 Continue home Lantus 15 units HS, hold lispro for now Trend labs Adjust medications as needed (4) Asthma: Qualifiers: Asthma complication type: uncomplicated Asthma persistence: intermittent Asthma severity: mild Qualified Code(s): J45.20 - Mild intermittent asthma, uncomplicated Code(s): J45.909 - Unspecified asthma, uncomplicated Status: Chronic Assessment and Plan: Continue with albuterol PRN (5) Seizure disorder: Code(s): G40.909 - Epilepsy, unspecified, not intractable, without status epilepticus Status: Acute Assessment and Plan: Continue home medications valproic acid 250mg PO Q8hr, phenytoin 100mg PO TID Lab indicate levels are low. follow-up neurology outpatient Seizure precautions possible medication adjustments (6) End stage renal disease: Code(s): N18.6 - End stage renal disease Status: Chronic Assessment and Plan: dialysis Wednesday and Wednesday missed 11/06/20 Last treatment 11/04/20 repeat his chest x-ray shows increase infiltrates. Nephrology consulted thank you K 5.1, PHos 8.2, BUN 54, Creatinine 8.50 (11/07/20) Trend labs (7) Anxiety: Code(s): F41.9 - Anxiety disorder, unspecified Status: Chronic Assessment and Plan: Continue with patient's home medications Alprazolam filled in July will continue this (8) Depression: Code(s): F32.9 - Major depressive disorder, single episode, unspecified Status: Chronic Assessment and Plan: Continue with home medication of Lexapro (9) Hypertension: Qualifiers: Hypertension type: essential hypertension Qualified Code(s): I10 - Essential (primary) hypertension Code(s): I10 - Essential (primary) hypertension Status: Chronic Assessment and Plan: Current BP 196/103 Continue with home medication looks like he is on amlodipine 10mg, hydralazine 50mg, labetalol 300mg, carvedilol 25mg, minoxidil 2.5, clonidine 0.2mg trend BP adjust medication Time Spent With Patient Time with patient: 25 - 35 minutes Subjective Date/time seen: 11/07/20 08:16 Interval history: Patient is a 40 year old male who is here for fluid overload. Patient stated that he is feeling better today. He stated that he is ready to go home and does not know why he is got admitted. He does com
[2020-11-07] MEDS: hydrALAZINE HCL 20 MG/ML VIAL 10 MG IV PUSH (08:31)
[2020-11-07] MEDS: PHENYTOIN SODIUM 100 MG CAP PO ×3 (08:32→21:10)
[2020-11-07] MEDS: TERAZOSIN HCL 1 MG CAPSULE 2 MG PO ×2 (08:32→21:10)
[2020-11-07] MEDS: ESCITALOPRAM OXALATE 10 MG TABLET 20 MG PO (08:33)
[2020-11-07] MEDS: CALCIUM ACETATE 667 MG TABLET 1334 MG PO ×2 (08:33→13:01)
[2020-11-07] MEDS: hydrALAZINE HCL 50 MG TABLET 100 MG PO ×2 (08:34→13:00)
[2020-11-07] MEDS: FUROSEMIDE INJ 100 MG/10 ML VIAL 80 MG IV PUSH (08:34)
[2020-11-07] MEDS: FAMOTIDINE 20 MG TABLET PO (08:35)
[2020-11-07] MEDS: minoxidiL 2.5 MG TABLET PO (08:35)
[2020-11-07 09:11] LABS: Glucose Point of Care 175 mg/dl (65-105)
--- NOTE | 2020-11-07 10:11 | PCAUD ---
Md Carmichael informed for HTN, all b/p meds and prn's given @ 830am b/p still elevated 209/115, awaiting orders. N.o for dialysis recieved, MD Carmichael reviewing b/p meds now.
[2020-11-07] MEDS: cloNIDine HCL 0.2 MG TABLET PO (11:25)
[2020-11-07 11:37] LABS: Glucose Point of Care 158 mg/dl (65-105)
--- NOTE | 2020-11-07 13:23 | PCAUD ---
Messaged left with dialysis nurse Cookie Philip.
[2020-11-07 15:57] LABS: Glucose Point of Care 174 mg/dl (65-105)
--- NOTE | 2020-11-07 17:00 | PM.PNNEP ---
Progress Note: A&P Assessment and Plan (1) End stage renal disease: Code(s): N18.6 - End stage renal disease Status: Chronic Assessment and Plan: HD today and likely tomorrow to resume his M/W/F schedule follow electrolytes, volume, status, and clearance (2) Hypertension: Qualifiers: Hypertension type: essential hypertension Qualified Code(s): I10 - Essential (primary) hypertension Code(s): I10 - Essential (primary) hypertension Status: Chronic Assessment and Plan: poor control at baseline several hospitalizations with multiple medication changes in the last several months suspect some compliance issues per last hospitalization at [facility] in [place] - he was discharged on labetalol, hydralazine, clonidine, and nifedipine perhaps an element of rebound HTN from missing clonidine.... FULL CONSULT to follow Subjective Date/time seen: 11/07/20 17:00 Tolerating dialysis at the time of my visit (seen on HD at 4:55pm); sleeping comfortably when seen; BP has been quite high/erratic since admission (BP control has been difficult as an outpatient as well). Exam Narrative: General: WD/WN male in NAD Heart: normal S1 and S2; no rub Lungs: coarse and decreased at bases Abdomen: soft, nontender, nondistended, positive bowel sounds Extremities: no cyanosis or clubbing; 1+ edema Skin: warm and dry Objective Data Vital Signs Vital Signs: Vital Signs Temp Pulse Resp BP Pulse Ox 11/07/20 17:00 88 177/98 H 11/07/20 16:45 88 184/99 H 11/07/20 16:36 88 187/103 H 11/07/20 16:30 36.8 C 88 22 H 186/101 H 11/07/20 16:00 35.8 C L 89 24 H 160/95 H 97 11/07/20 12:00 36.4 C 104 H 24 H 176/96 H 91 11/07/20 08:00 36.9 C 111 H 24 H 204/107 H 96 11/07/20 04:00 37.2 C 105 H 20 196/103 H 96 11/07/20 00:00 36.6 C 103 H 20 170/90 H 90 11/06/20 20:00 36.5 C 91 20 186/96 H 90 Intake/Output Intake/Output: Intake & Output 11/04/20 11/05/20 11/06/20 11/07/20 23:59 23:59 23:59 23:59 Intake Total 1780 Balance 1780 Meds/Results Medications: Active Medications Generic Name Dose Route Start Last Admin Trade Name Freq PRN Reason Stop Dose Admin Albuterol 2 puff 11/06/20 20:00 Albuterol Sulfate (*Sp) Aerosol 1 Puff INHALATION Q6H PRN Wheezing Alprazolam 0.5 mg 11/06/20 20:00 Alprazolam (*Crx) 0.5 Mg Tablet PO HS PRN Sleep Amitriptyline HCl 50 mg 11/06/20 21:00 11/06/20 21:28 Amitriptyline Hcl 25 Mg Tablet PO 50 mg HS BELKYS Administration Calcium Acetate 1,334 mg 11/07/20 08:00 11/07/20 17:22 Calcium Acetate 667 Mg Tablet PO Not Given TIDWM BELKYS Dextrose 12.5 gm 11/06/20 17:55 Dextrose 50% 25 Gm/50 Ml Syringe IV PUSH PRN PRN Hypoglycemia Protocol Epoetin Damion-epbx 10,000 units 11/07/20 19:05 11/07/20 18:06 Epoetin Damion-Epbx 10,000 Units/Ml Vial IV PUSH 11/07/20 19:06 10,000 units ONCE ONE Administration Escitalopram Oxalate 20 mg 11/07/20 09:00 11/07/20 08:33 Escitalopram Oxalate 10 Mg Tablet PO 20 mg DAILY BELKYS Administration Famotidine 20 mg 11/07/20 09:00 11/07/20 17:22 Famotidine 20 Mg Tablet PO Not Given BID BELKYS Furosemide 80 mg 11/07/20 09:00 11/07/20 17:22 Furosemide Inj 100 Mg/10 Ml Vial IV PUSH Not Given BID BELKYS Glucagon 1 mg 11/06/20 17:55 Glucagon For Inj 1 Mg Vial IM PRN PRN Hypoglycemia Protocol Glucose 15 gm 11/06/20 17:55 Glucose Oral Gel 15 Gm Of Glucse In 37.5 Gm Tube PO PRN PRN Hypoglycemia Protocol Hydralazine HCl 10 mg 11/06/20 18:19 11/07/20 08:31 Hydralazine Hcl 20 Mg/Ml Vial IV PUSH 10 mg Q8H PRN Administration Blood Pressure - High Hydralazine HCl 100 mg 11/07/20 09:00 11/07/20 13:00 Hydralazine Hcl 50 Mg Tablet PO 100 mg TID BELKYS Administration Dextrose 1,000 mls @ 100 mls/hr 11/06/20 1
[2020-11-07] MEDS: EPOETIN ALFA-EPBX 10,000 UNITS/ML VIAL 10000 UNITS IV PUSH (18:06)
[2020-11-07 19:41] LABS: Hepatitis B Surface Antigen Negative (Negative)
[2020-11-07 19:52] LABS: SARS-CoV-2 RNA PCR Negative
[2020-11-07] MEDS: AMITRIPTYLINE HCL 25 MG TABLET 50 MG PO (21:10)
[2020-11-07 21:28] LABS: Glucose Point of Care 116 mg/dl (65-105)
[2020-11-08] VITALS (16 sets, daily range): BP systolic 141–204; BP diastolic 81–104; PULSE 78–104; RESP 18–20; TEMP 36.7–37; O2SAT 92–100
--- NOTE | 2020-11-08 03:41 | PC.NURSE ---
2100 medications were logged under wrong nurse. Stuart Fuller RN passed and logged medications from 2100 on 11/07/2020 until 0700 on 11/08/2020.
[2020-11-08] MEDS: VALPROIC ACID 250 MG CAPSULE PO ×2 (05:51→14:32)
[2020-11-08 06:50] LABS: Basophils Percent Auto 0.7 % (0.2-1.2); Eosinophils Absolute Auto 0.3 K/mm3 (0-0.3); Eosinophils Percent Auto 8.2 % (0-4.4); Hematocrit 25.4 % (42.0-52.0); Hemoglobin 7.9 g/dL (14.0-18.0); Immature Granulocyte Absolute 0.03 K/mm3 (0.00-0.031); Immature Platelet Fraction Pct 2.5 % (0.9-11.2); Lymphocytes Absolute Auto 0.67 K/mm3 (0.9-3.2); Mean Corpuscular HGB Conc 31.1 g/dl (32-36); Mean Corpuscular Hemoglobin 32.6 pg (26-34); Mean Platelet Volume 10.5 fl (7.4-10.4); Monocytes Absolute Auto 0.3 K/mm3 (0.1-0.6); Monocytes Percent Auto 8.6 % (2.6-8.5); Neutrophils Absolute Auto 1.8 K/mm3 (1.3-6.7); Neutrophils Percent Auto 59.5 % (45.5-73.1); Platelet Count Result 205 k/mm3 (150-375); Red Blood Count 2.42 M/mm3 (4.6-6.20); Red Cell Distribution Width 15.5 % (11.5-14.5)
[2020-11-08 07:14] LABS: Alanine Aminotransferase 34 U/L (4-50); Albumin Level 3.4 g/dL (3.5-5.1); Alkaline Phosphatase 145 U/L (38-126); Anion Gap 12 mmol/L (8-16); Aspartate Amino Transferase 48 U/L (17-59); Bilirubin,Total 0.7 mg/dL (0.2-1.3); Blood Urea Nitrogen 31 mg/dL (9-20); Calcium 8.4 mg/dL (8.4-10.2); Carbon Dioxide 25 mmol/L (22-30); Chloride 100 mmol/L (98-107); Estimated CRCL calculation 18 ml/min; Estimated Glomerular Filt Rate 11; Glucose 246 mg/dL (65-110); Magnesium 2.4 mg/dL (1.6-2.3); Phosphorus 5.6 mg/dL (2.5-4.5); Potassium 4.4 mmol/L (3.4-5.0); Sodium 137 mmol/L (137-145)
[2020-11-08 07:52] LABS: Glucose Point of Care 234 mg/dl (65-105)
[2020-11-08] MEDS: TERAZOSIN HCL 1 MG CAPSULE 2 MG PO (08:32)
[2020-11-08] MEDS: hydrALAZINE HCL 50 MG TABLET 100 MG PO ×2 (08:32→12:37)
[2020-11-08] MEDS: PHENYTOIN SODIUM 100 MG CAP PO ×2 (08:33→12:34)
[2020-11-08] MEDS: FUROSEMIDE INJ 100 MG/10 ML VIAL 80 MG IV PUSH (08:33)
[2020-11-08] MEDS: ESCITALOPRAM OXALATE 10 MG TABLET 20 MG PO (08:33)
[2020-11-08] MEDS: FAMOTIDINE 20 MG TABLET PO (08:33)
[2020-11-08] MEDS: minoxidiL 2.5 MG TABLET PO (08:34)
[2020-11-08] MEDS: CALCIUM ACETATE 667 MG TABLET 1334 MG PO ×2 (08:34→12:33)
[2020-11-08] MEDS: INSULIN ASPART (*BKC) 100 UNITS/ML SUB-Q ×2 (09:32→12:52)
[2020-11-08] MEDS: METOPROLOL TARTRATE 50 MG TAB 100 MG PO (11:36)
[2020-11-08 11:47] LABS: Platelet Estimate Adequate (Adequate)
[2020-11-08 11:48] LABS: Acanthocytes 1+ (NORMAL); Anisocytosis 1+ (NORMAL); Hypochromasia 2+ (NORMAL)
[2020-11-08 12:03] LABS: Glucose Point of Care 257 mg/dl (65-105)
[2020-11-08 12:12] LABS: Glucose Point of Care 258 mg/dl (65-105)
[2020-11-08 12:28] LABS: Glucose Point of Care 252 mg/dl (65-105)
--- NOTE | 2020-11-08 13:28 | P.CONNP_ITS ---
Assessment and Plan Assessment and plan (1) End stage renal disease: Code(s): N18.6 - End stage renal disease Status: Chronic Assessment and Plan: * HD today to resume his M// schedule * follow electrolytes, volume, status, and clearance (2) Hypertension: Qualifiers: Hypertension type: essential hypertension Qualified Code(s): I10 - Essential (primary) hypertension Code(s): I10 - Essential (primary) hypertension Status: Chronic Assessment and Plan: * poor control at baseline * several hospitalizations with multiple medication changes in the last several months * suspect some compliance issues may be playing a role * per last hospitalization at [facility] - he was discharged on labetalol, hydralazine, clonidine, and nifedipine; however, he was started on hydralazine, terazosin, minoxidil...unclear what regimen he was taking at home - perhaps an element of rebound HTN from missing clonidine also playing a role with high BP * will need to clarify home regimen of BP meds and adjust as necessary (3) Hypoxia: Code(s): R09.02 - Hypoxemia Status: Acute Assessment and Plan: * presented to OSH with shortness of breath * apparently hypoxic but improved with supplemental oxygen * COVID-19 testing at OSH ER and here is negative * clinically better at this time (4) Volume overload: Qualifiers: Hypervolemia type: unspecified Qualified Code(s): E87.70 - Fluid overload, unspecified Code(s): E87.70 - Fluid overload, unspecified Status: Acute Assessment and Plan: * apparently 11kg about his dry weight per his outpatient dialysis unit * fluid removal challenging due to issues with severe cramping * HD yesterday with 4L fluid removal * HD with further fluid removal as tolerated today (5) Seizure disorder: Code(s): G40.909 - Epilepsy, unspecified, not intractable, without status epilepticus Status: Chronic Assessment and Plan: * likely needs Neurology follow-up * continue home antiepileptics * known history of CVA with last hospitalization at [facility] (6) Type 1 diabetes mellitus: Qualifiers: Chronic kidney disease stage: on chronic dialysis Diabetes mellitus complication detail: with chronic kidney disease Diabetes mellitus complication status: with kidney complications Qualified Code(s): E10.22 - Type 1 diabetes mellitus with diabetic chronic kidney disease; N18.6 - End stage renal disease; Z99.2 - Dependence on renal dialysis Code(s): E10.9 - Type 1 diabetes mellitus without complications Status: Acute Assessment and Plan: * follow accuchecks * glycemic control Will continue to follow. History of Present Illness Reason for Consult Consult date: 11/08/20 Reason for consult: end stage renal disease Chief Complaint Chief complaint: Fluid overload; PUI History of Present Illness Narrative: The patient is a 40-year-old male with a past medical history as outlined below who was transferred from [facility] for further treatment of his shortness of breath / fluid overload. The patient issue presented to [facility] with shortness of breath and lethargy. He was due for dialysis on the day of admission presented to the hospital emergency room for further evaluation of the symptoms. Routine blood test done in the emergency room demonstrated labs consistent with his known history of end-stage renal disease and no other significant fin
--- NOTE | 2020-11-08 13:28 | PM.CNNEP ---
Assessment and Plan Assessment and plan (1) End stage renal disease: Code(s): N18.6 - End stage renal disease Status: Chronic Assessment and Plan: HD today to resume his M/W/ schedule follow electrolytes, volume, status, and clearance (2) Hypertension: Qualifiers: Hypertension type: essential hypertension Qualified Code(s): I10 - Essential (primary) hypertension Code(s): I10 - Essential (primary) hypertension Status: Chronic Assessment and Plan: poor control at baseline several hospitalizations with multiple medication changes in the last several months suspect some compliance issues may be playing a role per last hospitalization at [facility] - he was discharged on labetalol, hydralazine, clonidine, and nifedipine; however, he was started on hydralazine, terazosin, minoxidil...unclear what regimen he was taking at home - perhaps an element of rebound HTN from missing clonidine also playing a role with high BP will need to clarify home regimen of BP meds and adjust as necessary (3) Hypoxia: Code(s): R09.02 - Hypoxemia Status: Acute Assessment and Plan: presented to OSH with shortness of breath apparently hypoxic but improved with supplemental oxygen COVID-19 testing at OSH ER and here is negative clinically better at this time (4) Volume overload: Qualifiers: Hypervolemia type: unspecified Qualified Code(s): E87.70 - Fluid overload, unspecified Code(s): E87.70 - Fluid overload, unspecified Status: Acute Assessment and Plan: apparently 11kg about his dry weight per his outpatient dialysis unit fluid removal challenging due to issues with severe cramping HD yesterday with 4L fluid removal HD with further fluid removal as tolerated today (5) Seizure disorder: Code(s): G40.909 - Epilepsy, unspecified, not intractable, without status epilepticus Status: Chronic Assessment and Plan: likely needs Neurology follow-up continue home antiepileptics known history of CVA with last hospitalization at [facility] (6) Type 1 diabetes mellitus: Qualifiers: Chronic kidney disease stage: on chronic dialysis Diabetes mellitus complication detail: with chronic kidney disease Diabetes mellitus complication status: with kidney complications Qualified Code(s): E10.22 - Type 1 diabetes mellitus with diabetic chronic kidney disease; N18.6 - End stage renal disease; Z99.2 - Dependence on renal dialysis Code(s): E10.9 - Type 1 diabetes mellitus without complications Status: Acute Assessment and Plan: follow accuchecks glycemic control Will continue to follow. History of Present Illness Reason for Consult Consult date: 11/08/20 Reason for consult: end stage renal disease Chief Complaint Chief complaint: Fluid overload; PUI History of Present Illness Narrative: The patient is a 40-year-old male with a past medical history as outlined below who was transferred from [facility] for further treatment of his shortness of breath / fluid overload. The patient issue presented to [facility] with shortness of breath and lethargy. He was due for dialysis on the day of admission presented to the hospital emergency room for further evaluation of the symptoms. Routine blood test done in the emergency room demonstrated labs consistent with his known history of end-stage renal disease and no other significant findings. CT scan of his head did not demonstrate any type of acute intracranial pathology and his chest x-ray demonstrated cardiomegaly with patchy infiltrates in the left lung but no significant pleural effusions or pneumothorax. appropriate cultures were obtained on the concern for the possibility of pneumonia and he was started on IV antibiotic therapy. As they do not have dialysis cap
--- NOTE | 2020-11-08 13:59 | P.DS_ITS ---
DS: Admitting Diagnosis Discharge Date Date of service 11/08/2020 at 10:30 a.m. Admitting Diagnosis weakness and fatigue DS: Discharge Diagnosis Discharge Diagnosis (1) Person under investigation for COVID-19: Code(s): Z20.822 - Contact with and (suspected) exposure to COVID-19 Status: Acute Assessment and Plan: * rapid COVID at [facility] was negative. * PCR here negative * contact and droplet isolation until results to rule out * Complaints of SOB * Chest xray shows patchy bilateral infiltrates increased since 10/12 * Supplemental oxygen to maintain saturations >92% (2) Volume overload: Qualifiers: Hypervolemia type: unspecified Qualified Code(s): E87.70 - Fluid overload, unspecified Code(s): E87.70 - Fluid overload, unspecified Status: Acute Assessment and Plan: * dialysis on Wednesday. * Nephrology has been consulted thank you * Trend electrolytes. * IV Lasix, p.o. Lasix at home * makes very little urine * Strict I&Os * patient received dialysis on 11/07 and 11/08/2020 (3) Type 1 diabetes mellitus: Qualifiers: Chronic kidney disease stage: on chronic dialysis Diabetes mellitus complication detail: with chronic kidney disease Diabetes mellitus complication status: with kidney complications Qualified Code(s): E10.22 - Type 1 diabetes mellitus with diabetic chronic kidney disease; N18.6 - End stage renal disease; Z99.2 - Dependence on renal dialysis Code(s): E10.9 - Type 1 diabetes mellitus without complications Status: Acute Assessment and Plan: * Current glucose 246 * Accu-Cheks AC and HS. * Sliding scale insulin. * A1c 6.6 * Continue home Lantus 15 units HS, hold lispro for now * Trend labs * Adjust medications as needed (4) Asthma: Qualifiers: Asthma complication type: uncomplicated Asthma persistence: intermi ttent Asthma severity: mild Qualified Code(s): J45.20 - Mild intermittent asthma, uncomplicated Code(s): J45.909 - Unspecified asthma, uncomplicated Status: Chronic Assessment and Plan: * Continue with albuterol PRN (5) Seizure disorder: Code(s): G40.909 - Epilepsy, unspecified, not intractable, without status epilepticus Status: Chronic Assessment and Plan: * Continue home medications valproic acid 250mg PO Q8hr, phenytoin 100mg PO TID * Lab indicate levels are low. * follow-up neurology outpatient * Seizure precautions * possible medication adjustments (6) End stage renal disease: Code(s): N18.6 - End stage renal disease Status: Chronic Assessment and Plan: * dialysis Wednesday and Wednesday missed 11/06/20 * Last treatment 11/04/20 * repeat his chest x-ray shows increase infiltrates. * Nephrology consulted thank you * K 5.1, PHos 8.2, BUN 54, Creatinine 8.50 (11/07/20) * Trend labs (7) Anxiety: Code(s): F41.9 - Anxiety disorder, unspecified Status: Chronic Assessment and Plan: * Continue with patient's home medications * Alprazolam filled in July will continue this (8) Depression: Code(s): F32.9 - Major depressive disorder, single episode, unspecified Status: Chronic Assessment and Plan: * Continue with home medication of Lexapro (9) Hypertension: Qualifiers:
--- NOTE | 2020-11-08 13:59 | PM.DS ---
DS: Admitting Diagnosis Discharge Date Date of service 11/08/2020 at 10:30 a.m. Admitting Diagnosis weakness and fatigue DS: Discharge Diagnosis Discharge Diagnosis (1) Person under investigation for COVID-19: Code(s): Z20.822 - Contact with and (suspected) exposure to COVID-19 Status: Acute Assessment and Plan: rapid COVID at [facility] was negative. PCR here negative contact and droplet isolation until results to rule out Complaints of SOB Chest xray shows patchy bilateral infiltrates increased since 10/12 Supplemental oxygen to maintain saturations >92% (2) Volume overload: Qualifiers: Hypervolemia type: unspecified Qualified Code(s): E87.70 - Fluid overload, unspecified Code(s): E87.70 - Fluid overload, unspecified Status: Acute Assessment and Plan: dialysis on Wednesday. Nephrology has been consulted thank you Trend electrolytes. IV Lasix, p.o. Lasix at home makes very little urine Strict I&Os patient received dialysis on 11/07 and 11/08/2020 (3) Type 1 diabetes mellitus: Qualifiers: Chronic kidney disease stage: on chronic dialysis Diabetes mellitus complication detail: with chronic kidney disease Diabetes mellitus complication status: with kidney complications Qualified Code(s): E10.22 - Type 1 diabetes mellitus with diabetic chronic kidney disease; N18.6 - End stage renal disease; Z99.2 - Dependence on renal dialysis Code(s): E10.9 - Type 1 diabetes mellitus without complications Status: Acute Assessment and Plan: Current glucose 246 Accu-Cheks AC and HS. Sliding scale insulin. A1c 6.6 Continue home Lantus 15 units HS, hold lispro for now Trend labs Adjust medications as needed (4) Asthma: Qualifiers: Asthma complication type: uncomplicated Asthma persistence: intermittent Asthma severity: mild Qualified Code(s): J45.20 - Mild intermittent asthma, uncomplicated Code(s): J45.909 - Unspecified asthma, uncomplicated Status: Chronic Assessment and Plan: Continue with albuterol PRN (5) Seizure disorder: Code(s): G40.909 - Epilepsy, unspecified, not intractable, without status epilepticus Status: Chronic Assessment and Plan: Continue home medications valproic acid 250mg PO Q8hr, phenytoin 100mg PO TID Lab indicate levels are low. follow-up neurology outpatient Seizure precautions possible medication adjustments (6) End stage renal disease: Code(s): N18.6 - End stage renal disease Status: Chronic Assessment and Plan: dialysis Wednesday and Wednesday missed 11/06/20 Last treatment 11/04/20 repeat his chest x-ray shows increase infiltrates. Nephrology consulted thank you K 5.1, PHos 8.2, BUN 54, Creatinine 8.50 (11/07/20) Trend labs (7) Anxiety: Code(s): F41.9 - Anxiety disorder, unspecified Status: Chronic Assessment and Plan: Continue with patient's home medications Alprazolam filled in July will continue this (8) Depression: Code(s): F32.9 - Major depressive disorder, single episode, unspecified Status: Chronic Assessment and Plan: Continue with home medication of Lexapro (9) Hypertension: Qualifiers: Hypertension type: essential hypertension Qualified Code(s): I10 - Essential (primary) hypertension Code(s): I10 - Essential (primary) hypertension Status: Chronic Assessment and Plan: Current BP 196/103 Continue with home medication looks like he is on amlodipine 10mg, hydralazine 50mg, labetalol 300mg, carvedilol 25mg, minoxidil 2.5, clonidine 0.2mg trend BP adjust medication DS: Summary Hospital Course Hospital Course: patient is a 40-year-old male who is here for shortness of breath. Patient stated that he
[2020-11-08] MEDS: EPOETIN ALFA-EPBX 10,000 UNITS/ML VIAL 10000 UNITS IV PUSH (17:45)
== END 2020-11-08 21:40 | disposition home or self-care (01) | DRG 640 ==
PROVIDERS: Internal Medicine Nephrology; Nurse Practitioner; Admitting Provider Internal Medicine; PCP Physician Assistant; Visit Provider Internal Medicine
DX: E87.79 Other fluid overload (principal); N18.6 End stage renal disease; I12.0 Hypertensive chronic kidney disease with stage 5 chronic kidney disease or end stage renal disease; Z91.15 Patient's noncompliance with renal dialysis; Z91.14 Patient's other noncompliance with medication regimen; E10.22 Type 1 diabetes mellitus with diabetic chronic kidney disease; Z20.822 Contact with and (suspected) exposure to COVID-19; J45.909 Unspecified asthma, uncomplicated; G40.909 Epilepsy, unspecified, not intractable, without status epilepticus; F41.9 Anxiety disorder, unspecified; F32.9 Major depressive disorder, single episode, unspecified; N25.0 Renal osteodystrophy; R07.89 Other chest pain; Z99.2 Dependence on renal dialysis; Z90.49 Acquired absence of other specified parts of digestive tract; Z87.891 Personal history of nicotine dependence
CPT/HCPCS: 36415; 71045; 80048; 80053; 82728; 82948; 83036; 83605; 83615; 83735; 84100; 85025; 85055; 87040; 87070; 87205; 87340; A9270; C9803; G0257; J0360; J1644; J1815; J1940; J7030; Q5106; U0003; U0005

== ENCOUNTER 2021-01-15 01:01 | Emergency (ER) | payer MEDICARE, MEDICAID, SELFPAY ==
[2021-01-15 01:06] VITALS: BP 197/100; PULSE 101; RESP 18; TEMP 36.4; O2SAT 93
[2021-01-15 01:15] VITALS: BP 183/96; PULSE 89; RESP 18; O2SAT 96
--- NOTE | 2021-01-15 01:22 | ED.SKABFB ---
HPI - Skin/Abscess/Foreign Bdy General Chief complaint: Skin/Abscess/Foreign Body Stated complaint: sores on ankles, itching Time Seen by Provider: 01/15/21 01:21 Source: patient Mode of arrival: ambulatory Limitations: no limitations History of Present Illness HPI narrative: Patient is a 40-year-old type I diabetic, hypertension, end-stage renal disease with Wednesday, Wednesday, Wednesday dialysis, presenting for evaluation of bleeding to the bilateral lower extremities. Patient has had a 1 month history of worsening itching to his lower legs, states that tonight he was soaking in a hot bath with increased itching, thus started to scratch both legs, causing open wounds to these areas. Patient denies fever, chills, nausea, vomiting. No purulent drainage. Patient has been applying bandages without much improvement in his symptoms. Patient states he has been seen by his primary care provider who has put him on hydrocortisone cream without much improvement. States that they are trying to not use steroids due to the patient's history of diabetes. Patient denies any headache, chest pain, shortness of breath. No lesions to the upper extremities. Patient's significant other in the room also states they have been treating him for scabies over the past month without much improvement in his symptoms. Patient denies any abdominal pain. No bloating. No jaundice. Related Data Allergies Allergy/AdvReac Type Severity Reaction Status Date / Time divalproex sodium Allergy Unknown Verified 01/15/21 01:13 [From Depakote] Penicillins Allergy Unknown Verified 01/15/21 01:13 Sulfa (Sulfonamide Allergy Unknown Verified 01/15/21 01:13 Antibiotics) valproic acid Allergy Unknown Verified 01/15/21 01:13 Review of Systems Review of Systems: CONSTITUTIONAL: Denies fever, chills, or sweats. EYES: Denies visual changes, redness, or discharge. ENT: Denies rhinorrhea, congestion, sore throat, or otalgia. CARDIOVASCULAR: Denies chest pain, palpitations, or edema. RESPIRATORY: Denies cough or dyspnea. GASTROINTESTINAL: Denies abdominal pain, nausea, vomiting, or diarrhea. GENITOURINARY: Denies dysuria or hematuria. SKIN: Reports itching, open wounds to posterior aspect bilateral lower extremity MUSCULOSKELETAL: Denies back pain, joint pain, or myalgia. NEUROLOGIC: Denies headache, numbness, or weakness. PSYCHIATRIC: Denies anxiety or depression. [facility] Social History Social History (Updated 01/15/21 @ 01:53 by Mabel Finnegan MD) Alcohol intake: never Substance use: never Living arrangements: with family Gender identity (if verbalized by the patient): Male Exam Narrative: GENERAL: Awake, alert, conversant HEAD: Normocephalic, atraumatic. EYES: PERRLA and EOMI. ENT: Nares clear, no rhinorrhea or epistaxis. Mucous membranes moist. NECK: Supple. CHEST: No respiratory distress, breathing even and non labored HEART: Regular rate, sinus rhythm ABDOMEN:Non distended, non tender EXTREMITIES: Normal range of motion. Pitting edema to the bilateral lower extremities, there is mild erythema to the posterior aspect of bilateral lower extremities, with open abrasions, weeping fluid. No purulence. No significant induration. No streaking erythema. SKIN: Warm NEURO:No focal deficits. Alert and oriented x3 Course Vital Signs Vital signs: Vital Signs Temperature 36.4 C L 01/15/21 01:06 Pulse Rate 101 H 01/15/21 01:06 Respiratory Rate 18 01/15/21 01:06 Blood Pressure 197/100 H 01/15/21 01:06 Pulse Oximetry 93 01/15/21 01:06 Temperature 36.4 C L 01/15/21 01:06 Pulse Rate 89 01/15/21 01:15 Respiratory Rate 18 01/15/21 01:15 Blood Pressure 183/96 H 01/15/21 01:15 Pulse Oximetry 96 01/15/21 01:15 MDM - Skin/Abscess/Foreign Bdy MDM Narrative Medical decision making narrative: Patient presenting for evaluation of wounds to bilateral lower extremities secondary to chronic itching over the past 4 weeks. Patient has
[2021-01-15] MEDS: CEPHALEXIN 500 MG CAPSULE PO (02:30)
[2021-01-15] MEDS: diphenhydrAMINE HCl CAP 25 MG CAPSULE PO (02:30)
[2021-01-15 02:35] VITALS: BP 197/106; PULSE 93; RESP 18; O2SAT 97
== END 2021-01-15 02:35 | disposition home or self-care (01) ==
PROVIDERS: Emergency Provider Emergency Medicine; PCP Physician Assistant
DX: S81.802A Unspecified open wound, left lower leg, initial encounter (principal); S81.801A Unspecified open wound, right lower leg, initial encounter; L29.9 Pruritus, unspecified; E10.22 Type 1 diabetes mellitus with diabetic chronic kidney disease; I12.0 Hypertensive chronic kidney disease with stage 5 chronic kidney disease or end stage renal disease; N18.6 End stage renal disease; Z99.2 Dependence on renal dialysis; X58.XXXA Exposure to other specified factors, initial encounter
CPT/HCPCS: 99283; A9270

== ENCOUNTER 2021-01-31 08:26 | Observation (INO) | payer MEDICARE, MEDICAID, SELFPAY ==
[2021-01-31] VITALS (15 sets, daily range): BP systolic 144–176; BP diastolic 80–103; PULSE 96–105; RESP 16–21; TEMP 36.5–37.1; O2SAT 94–100
--- NOTE | ~2021-01-31 | XR_ITS ---
EXAMINATION: XR chest 2V DATE: 01/31/2021 09:40 INDICATION: Shortness of breath. TECHNIQUE: Frontal and lateral views of the chest were obtained. COMPARISON: Chest single view 11/06/2020 FINDINGS: There are airspace opacities in the mid and lower lung zones. There are small pleural effus ions. No pneumothorax or cardiomegaly is noted. A right internal jugular central venous catheter is s een with tip in the proximal right atrium. IMPRESSION: 1. Worsened airspace opacities in the mid and lower lung zones, consistent with pulmonary edema versu s pneumonia. 2. Small pleural effusions. 3. Cardiomegaly. Reviewed, dictated and finalized at location A. [employer] IMPRESSION: 1. Worsened airspace opacities in the mid and lower lung zones, consistent with pulmonary edema versus pneumonia. 2. Small pleural effusions. 3. Cardiomegaly.
--- NOTE | 2021-01-31 09:26 | ECG_ITS ---
Measurements Intervals [place] Rate: 101 P: 53 DC: 136 QRS: 33 QRSD: 107 T: 98 QT: 362 QTc: 471 Interpretive Statements SINUS TACHYCARDIA POSSIBLE LEFT ATRIAL ENLARGEMENT BORDERLINE R WAVE PROGRESSION, ANTERIOR LEADS NONSPECIFIC ST & T-WAVE ABNORMALITY- HIGH LATERAL LEADS BASELINE WANDER- V6 BORDERLINE ECG Electronically Signed On 01-31-2021 16:27:30 IT SECURITY ADMINISTRATOR by Lokesh Luna D.O.
[2021-01-31 10:16] LABS: Basophils Percent Auto 0.3 % (0.2-1.2); Eosinophils Absolute Auto 0.7 K/mm3 (0-0.3); Eosinophils Percent Auto 11.1 % (0-4.4); Hematocrit 22.2 % (42.0-52.0); Hemoglobin 7.3 g/dL (14.0-18.0); Immature Granulocyte Absolute 0.02 K/mm3 (0.00-0.031); Immature Granulocyte Percent A 0.3 % (0-0.5); Lymphocytes Absolute Auto 0.62 K/mm3 (0.9-3.2); Lymphocytes Percent Auto 10.6 % (18.3-44.2); Mean Corpuscular HGB Conc 32.9 g/dl (32-36); Mean Corpuscular Hemoglobin 33.5 pg (26-34); Mean Corpuscular Volume 101.8 fl (80-100); Mean Platelet Volume 9.4 fl (7.4-10.4); Monocytes Absolute Auto 0.5 K/mm3 (0.1-0.6); Monocytes Percent Auto 8.9 % (2.6-8.5); Neutrophils Percent Auto 68.8 % (45.5-73.1); Platelet Count Result 154 k/mm3 (150-375); Red Blood Count 2.18 M/mm3 (4.6-6.20); Red Cell Distribution Width 14.6 % (11.5-14.5); White Blood Count 5.8 K/mm3 (4.5-10.0)
[2021-01-31 10:42] LABS: Alanine Aminotransferase 71 U/L (4-50); Albumin Level 4.3 g/dL (3.5-5.1); Alkaline Phosphatase 219 U/L (38-126); Anion Gap 13 mmol/L (8-16); Aspartate Amino Transferase 59 U/L (17-59); Bilirubin,Total 0.5 mg/dL (0.2-1.3); Blood Urea Nitrogen 71 mg/dL (9-20); Calcium 9.8 mg/dL (8.4-10.2); Carbon Dioxide 31 mmol/L (22-30); Chloride 90 mmol/L (98-107); Estimated CRCL calculation 16 ml/min; Estimated Glomerular Filt Rate 10; Glucose 115 mg/dL (65-110); Potassium 4.3 mmol/L (3.4-5.0); Sodium 134 mmol/L (137-145)
[2021-01-31 11:40] LABS: NT Pro B Type Natriuretic Pept > 35000 pg/mL (5-100)
--- NOTE | 2021-01-31 11:54 | PC.NURSE ---
Patient reports feeling anxious and requesting medication for this. Provider made aware.
--- NOTE | 2021-01-31 12:28 | ED.SOB ---
HPI - SOB/Dyspnea General Chief Complaint: Shortness of Breath/Dyspnea Stated Complaint: fluid retention, sob at dialysis Time Seen by Provider: 01/31/21 09:47 History of Present Illness HPI Narrative: Patient is a 40-year-old male who presents ER with shortness of breath. Patient was receiving dialysis when he became acutely dyspneic. They discontinue dialysis after 1 hour before our treatment. Patient reports he is currently up 20 pounds. Denies fevers or chills or sweats. No chest pain or pressure. He sees Dr. Carmichael to manage his renal disease. Reports he makes only minimal amount of urine. Related Data Home Medications Medication Instructions Recorded Confirmed albuterol sulfate [Ventolin HFA] 2 puff INHALATION Q6H PRN 11/04/19 11/06/20 hydralazine 100 mg PO TID 11/04/19 11/06/20 terazosin 2 mg PO BID 11/04/19 11/06/20 Lantus U-100 Insulin 15 unit SUBCUT HS 06/01/20 11/06/20 amitriptyline 50 mg PO HS 06/01/20 11/06/20 calcium acetate 2 tablet PO TIDWMEAL 06/01/20 11/06/20 escitalopram oxalate 20 mg PO DAILY #0 06/01/20 11/06/20 famotidine 20 mg PO BID 06/01/20 11/06/20 furosemide 80 mg PO BID 06/01/20 11/06/20 insulin lispro [Humalog U-100 See Rx Instructions .ROUTE .COMPLEX 06/02/20 11/06/20 Insulin] phenytoin sodium extended 100 mg PO TID 06/02/20 11/06/20 [Dilantin Extended] alprazolam 0.5 mg PO HS PRN 07/09/20 11/06/20 Allergies Allergy/AdvReac Type Severity Reaction Status Date / Time fluorescein Allergy Severe HIVES, BP Verified 11/06/20 18:09 DROPPED, SWELLING TONGUE Penicillins Allergy Unknown Unknown Verified 11/06/20 18:09 Sulfa (Sulfonamide Allergy Unknown Unknown Verified 11/06/20 18:09 Antibiotics) chlorpromazine Allergy Rash Verified 11/06/20 18:09 [From Thorazine] divalproex sodium AdvReac Confusion Verified 11/06/20 18:09 [From Depakote] Review of Systems Review of Systems: All systems reviewed & are unremarkable except as noted in HPI and below Constitutional: Constitutional: Denies chills, Denies fever(s) and Denies weakness ENT: Denies nasal congestion and Denies sore throat Cardiovascular: Cardiovascular: Denies chest pain, Denies rapid heart rate and Denies radiating jaw, neck or arm pain Respiratory: Respiratory: Denies cough, Reports dyspnea and Denies wheezing Gastrointestinal: Gastrointestinal: Denies abdominal pain, Denies nausea and Denies vomiting Neurologic: Denies syncope, Denies focal weakness and Denies numbness PMFSH Past Medical History Medical History Anemia requiring transfusions Anxiety Anxiety and depression Asthma Depression End stage renal disease on dialysis 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 He is disabled. The patient stated that he is on a transplant list for a kidney as well as pancreas but is currently on hold due to his illness. He has no biological children but is has 1 child that he is raising. He adopted a child. The patient is a lifelong nonsmoker. He denies any alcohol marijuana or illicit drug use. 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 He desires to be a full code.
[2021-01-31] MEDS: FUROSEMIDE INJ 100 MG/10 ML VIAL 80 MG IV PUSH (12:49)
[2021-01-31] MEDS: ONDANSETRON INJ 4 MG/2 ML VIAL IV PUSH (13:39)
[2021-01-31] MEDS: SODIUM CHLORIDE 0.9% IV 1,000 ML 999 ML IV CONT (13:40)
--- NOTE | 2021-01-31 13:55 | PC.NURSE ---
Patient was in bed and SPo2 monitor had gone down and patient became increasingly lethargic, and patient vomited in the sink. PRN medication given and he was temporarily placed on O2.
--- NOTE | 2021-01-31 13:57 | PC.NURSE ---
[facility] [phone]. states they will page out dialysis nurse.
[2021-01-31] MEDS: LORazepam INJ (*CRX) 2 MG/ML VIAL 0.5 MG IV PUSH (14:37)
--- NOTE | 2021-01-31 14:39 | PC.NURSE ---
Patient refusing to keep the bipap in place. Requested anxiety meds. Ordered and given. Will attempt to place it back on shortly.
--- NOTE | 2021-01-31 16:03 | PC.NURSE ---
Attempted to place bipap back on patient. Continues to refuse to wear it. Will continue to monitor. SPo2 continues to read WNL on 3L.
[2021-01-31 16:09] LABS: Iron 33 ug/dL (49-181)
[2021-01-31 16:18] LABS: Percent Iron Saturation 12 % (20-50)
--- NOTE | 2021-01-31 16:32 | PM.CNNEP ---
Assessment and Plan Assessment and plan (1) ESRD (end stage renal disease) on dialysis: Code(s): N18.6 - End stage renal disease; Z99.2 - Dependence on renal dialysis Status: Acute Assessment and Plan: The patient has end-stage renal disease. He has been on dialysis for a while. He frequently gains large amounts of weight. Then it is difficult to get the fluid off, for number reasons. Certainly not because his blood pressure is low. But rather due to cramping or possibly signing off early. He leaves above his dry weight and then comes on with even more fluid ultimately ending up like he is currently. Unfortunately he does not make very much urine so that does not help us with his weight gains. He is only on furosemide 20mg b.i.d.. Will increase this to80mg b.i.d. to see if that can help reduce some of the weight gain. His sodium level is mildly low. This tells us that he does eat a lot of salt which makes some thirsty and drinks fluid as a consequence. In addition however because of the low sodium he is drinking water beyond his thirst. Dr. Carmichael and I and the nurses at dialysis have talked to him at length about not gaining as much weight between treatments. Unfortunately because of his anxiety he did not stay on the machine today. Now he is still short of breath but has not gotten his dialysis yet because the nurses are short handed and were at other hospitals finishing off dialysis patients there. They will be here in anothercouple of hours they have assured me. (2) Volume overload: Qualifiers: Hypervolemia type: unspecified Qualified Code(s): E87.70 - Fluid overload, unspecified Code(s): E87.70 - Fluid overload, unspecified Status: Acute Assessment and Plan: The patient is volume overloaded by exam and by chest x-ray. Will try ir to remove some fluid this evening. (3) Severe hypertension: Code(s): I10 - Essential (primary) hypertension Status: Acute Assessment and Plan: Blood pressure is very high because of all the fluid. We will continue his outpatient medications. He does have high blood pressure apart from the fluid as well because when he is in the hospital and we have gotten all the fluid off his blood pressure is still high. (4) Erythropoietin deficiency anemia: Code(s): D63.1 - Anemia in chronic kidney disease Status: Acute Assessment and Plan: His hemoglobin is low. He does get Epogen. Give him [id number] tonight. (5) Hyponatremia: Code(s): E87.1 - Hypo-osmolality and hyponatremia Status: Acute Assessment and Plan: This is from drinking water (6) Renal osteodystrophy: Code(s): N25.0 - Renal osteodystrophy Status: Acute Assessment and Plan: Will check a phosphorus level in the morning (7) Anxiety and depression: Code(s): F41.9 - Anxiety disorder, unspecified; F32.9 - Major depressive disorder, single episode, unspecified Status: Acute Assessment and Plan: He is on medications for this (8) Type 1 diabetes mellitus: Qualifiers: Diabetes mellitus complication status: with kidney complications Diabetes mellitus complication detail: with chronic kidney disease Chronic kidney disease stage: on chronic dialysis Qualified Code(s): E10.22 - Type 1 diabetes mellitus with diabetic chronic kidney disease; N18.6 - End stage renal disease; Z99.2 - Dependence on renal dialysis Code(s): E10.9 - Type 1 diabetes mellitus without complications Status: Acute Assessment and Plan: He is on Accu-Cheks and sliding-scale insulin History of Present Illness Reason for Consult Consult date: 01/31/21 Chief Complaint Chief complaint: chf exacerbation/esrd with volume overload History of Present Illness Narrative: Ari is an unfortunate 40-year-old gentleman who has multiple medical problems including end-stage renal disease, hypertension, anemia of c
--- NOTE | 2021-01-31 17:30 | PM.IMHP ---
H&P: HPI History of Present Illness Date/Time: 01/31/21 17:30 Chief Complaint: Shortness of breath. Narrative: This is a 40-year-old male with end-stage renal disease on hemodialysis, insulin-dependent diabetes, and hypertension who presented to the emergency department earlier today via EMS from dialysis for evaluation of shortness of breath. About 1 hour into dialysis this morning he became acutely short of breath and very anxious and he was thus sent to the emergency department. He was started on BiPAP on arrival but has been able to come off of that and he reports feeling a bit better at this time. He is being admitted tonight for dialysis. Patient tells me that he is up approximately 20 lb from dry weight and he reports that he drinks quite a bit of water. It is my understanding that this is been a problem for the patient, gaining too much weight to get off with 1 dialysis session. He denies fever, chills, sweats, sinus congestion, rhinorrhea, otalgia, odynophagia, cough, nausea, vomiting, diarrhea, chest pain, pleuritic pain, palpitations, syncope, near syncope, and sick contacts. Review of Systems Review of Systems: Twelve systems were reviewed with pertinent positives and negatives as per HPI. Denies history of sleep apnea though he had witnessed apneic episodes while I was in the room. Denies hypersomnolence. Except as documented, all other systems were reviewed and are negative. [facility] Past Medical History Medical History (Updated 02/01/21 @ 00:14 by Shonna Nieto PA-C) Anemia requiring transfusions Anxiety and depression Asthma End stage renal disease on dialysis Erythropoietin deficiency anemia Hypertension Migraines Renal osteodystrophy Seizure disorder (10/2019) Type 1 diabetes Diagnosed at the age of 14. Hemoglobin A1c was 6.6% on 11/06/2020. Surgical History Surgical History (Updated 02/01/21 @ 00:07 by Shonna Nieto PA-C) History of appendectomy History of cholecystectomy Previous back surgery Status post creation of arteriovenous fistula Status post insertion of dialysis catheter Status post LASIK surgery of both eyes Family History Family History Mother Diabetes mellitus Cerebrovascular accident Father Hypertension Social History Social History (Updated 02/01/21 @ 00:08 by Shonna Nieto PA-C) Social History: The patient lives with his . He is disabled. The patient stated that he is on a transplant list for a kidney as well as pancreas but is currently on hold due to his illness. He has no biological children but is has 1 child that he is raising, he adopted a child. The patient is a lifelong nonsmoker. He denies any alcohol marijuana or illicit drug use. His is the durable power criminal defense attorney for healthcare. He desires to be a full code. Smoking packs per day: 0.5 Smoking cigarettes per day: 10.0 Years smoked: 6 Smoking pack-years: 3.00 Smoking status: Former smoker Tobacco type: cigarettes Smokeless tobacco user: chewing tobacco Second hand tobacco smoke exposure: Yes Alcohol intake: never Drinks per week: 10 Substance use: never Substance use type: does not use Last use: 04/23/2019 Gender identity (if verbalized by the patient): Male Spiritual care concerns: No Meds Home Medications and Allergies Home Medications Medication Instructions Recorded Confirmed Type albuterol sulfate [Ventolin HFA] 2 puff INHALATION Q6H PRN 11/04/19 11/06/20 History hydralazine 100 mg PO TID 11/04/19 11/06/20 History terazosin 2 mg PO BID 11/04/19 11/06/20 History valproic acid 250 mg PO Q8HR #90 cap 11/23/19 11/06/20 Rx Lantus U-100 Insulin 15 unit SUBCUT HS 06/01/20 11/06/20 History amitriptyline 50 mg PO HS 06/01/20 11/06/20 History calcium acetate 2 tablet PO TIDWMEAL 06/01/20 11/06/20 History escitalopram oxalate 20 mg PO DAILY #0 06/01/20 11/06/20 History famotidine 20 mg PO BID
[2021-01-31] MEDS: EPOETIN ALFA-EPBX 20,000 UNITS/ML VIAL 20000 UNITS SUB-Q (18:33)
--- NOTE | 2021-01-31 18:42 | PC.NURSE ---
Patient continues to rest in bed. Continues to be drowsy in bed, but awakens to verbal stimuli and responds appropriately to questions. Patient continues to refuse to wear bipap. SPo2 WNL on 3L nasal canula. Will continue to monitor.
--- NOTE | 2021-01-31 20:14 | PC.NURSE ---
Report given to equipment coordinator. pt taken to room 308 for dialysis treatment.
--- NOTE | 2021-01-31 21:14 | PC.NURSE ---
pt vomiting while receiving Dialysis. butcher helper called for PRN Zofran. administered 4mg of Zofran IV push.
--- NOTE | 2021-01-31 21:52 | PC.NURSE ---
pt still in dialysis at this time.
--- NOTE | 2021-01-31 23:57 | ADMGEN ---
This patient, Ari Zuniga, was admitted to IMU Room 206-01 on 01/31/21 at 2350. Patient/family oriented to hospital policies and general routines including ID bracelet, bed and alarms, visiting hours, pain management, procedures, bathroom and other care routines, personal items, smoking policy, room service/diet, and visiting hours. Report received from dialysis nurse but not ER nurse. Information on how to activate the Rapid Response Team has been discussed. Patient/Family are encouraged to report perceived risks to care and to ask questions if they do not understand what they are told or what they should do.
[2021-02-01] VITALS (9 sets, daily range): BP systolic 121–171; BP diastolic 53–122; PULSE 92–104; RESP 12–24; TEMP 36.2–37.1; O2SAT 90–100
[2021-02-01 03:47] LABS: Glucose Point of Care 206 mg/dl (65-105)
[2021-02-01 05:07] LABS: Hematocrit 24.4 % (42.0-52.0); Hemoglobin 7.7 g/dL (14.0-18.0); Mean Corpuscular HGB Conc 31.6 g/dl (32-36); Mean Corpuscular Hemoglobin 33.2 pg (26-34); Mean Corpuscular Volume 105.2 fl (80-100); Mean Platelet Volume 10.1 fl (7.4-10.4); Platelet Count Result 165 k/mm3 (150-375); Red Blood Count 2.32 M/mm3 (4.6-6.20); White Blood Count 6.9 K/mm3 (4.5-10.0)
[2021-02-01 05:25] LABS: Alanine Aminotransferase 110 U/L (4-50); Albumin Level 4.1 g/dL (3.5-5.1); Alkaline Phosphatase 246 U/L (38-126); Anion Gap 19 mmol/L (8-16); Aspartate Amino Transferase 161 U/L (17-59); Bilirubin,Total 0.8 mg/dL (0.2-1.3); Blood Urea Nitrogen 47 mg/dL (9-20); Calcium 9.4 mg/dL (8.4-10.2); Carbon Dioxide 25 mmol/L (22-30); Chloride 95 mmol/L (98-107); Estimated CRCL calculation 20 ml/min; Estimated Glomerular Filt Rate 13; Glucose 217 mg/dL (65-110); Magnesium 2.3 mg/dL (1.6-2.3); Phosphorus 6.8 mg/dL (2.5-4.5); Potassium 5.4 mmol/L (3.4-5.0); Sodium 139 mmol/L (137-145)
--- NOTE | 2021-02-01 09:46 | PM.IMPN ---
Progress Note: A&P Assessment and Plan (1) Volume overload: Qualifiers: Hypervolemia type: unspecified Qualified Code(s): E87.70 - Fluid overload, unspecified Code(s): E87.70 - Fluid overload, unspecified Status: Acute Assessment and Plan: 02/01 DOING MUCH BETTER AFTER DIALYSIS LIKELY HOME AFTER DIALYSIS TODAY (2) End-stage renal disease on hemodialysis: Code(s): N18.6 - End stage renal disease; Z99.2 - Dependence on renal dialysis Status: Acute Assessment and Plan: D/W PT COMPLETING EACH DIALYSIS SESSION (3) Anxiety: Code(s): F41.9 - Anxiety disorder, unspecified Status: Acute Assessment and Plan: HE WILL D/W PCP POSSIBLE CBT VS PHARMACEUTICAL TX OF HIS ANXIETY (4) Hypertension: Qualifiers: Hypertension type: essential hypertension Qualified Code(s): I10 - Essential (primary) hypertension Code(s): I10 - Essential (primary) hypertension Status: Chronic Assessment and Plan: IMPROVED AFTER DIALYSIS (5) Chronic anemia: Code(s): D64.9 - Anemia, unspecified Status: Acute Assessment and Plan: H/H STABLE (6) Type 1 diabetes mellitus: Qualifiers: Diabetes mellitus complication status: with kidney complications Diabetes mellitus complication detail: with chronic kidney disease Chronic kidney disease stage: on chronic dialysis Qualified Code(s): E10.22 - Type 1 diabetes mellitus with diabetic chronic kidney disease; N18.6 - End stage renal disease; Z99.2 - Dependence on renal dialysis Code(s): E10.9 - Type 1 diabetes mellitus without complications Status: Acute Assessment and Plan: AM BS 217 Subjective Date/time seen: 02/01/21 09:46 Interval history: 02/01 visit: Feels much better after dialysis last night. Still with leg and hand swelling. Would like another treatment prior to going home. Review of Systems Review of Systems: swelling in hands and legs All systems reviewed & are unremarkable except as noted in HPI and below Exam Narrative: HEENT: EOMI, PERRL, sclerae nonicteric, pharyngeal mucosa pink and intact NECK: No JVD, adenopathy, or thyromegaly CHEST: Clear to auscultation. Normal effort. HEART: NL S1/S2, regular, no murmur ABDOMEN: BS+, soft, nontender, no mass, no bruits EXTREMITIES: No cyanosis, TRACE PITTING EDEMA OF ANKLES, 1+ PITTING EDEMA OF THIGHS, NONPITTING PUFFINESS OF HANDS NEUROLOGIC: CN intact and symmetric to inspection. MUSCULOSKELETAL: Tone and strength symmetric. PSYCH: Alert. Oriented to person, place, and time. Objective Data Vital Signs Vital Signs: Vital Signs - 24 hr 01/31/21 10:45 01/31/21 14:40 01/31/21 16:33 Temperature Pulse Rate 104 H 97 96 Respiratory Rate 18 20 16 Blood Pressure 155/87 H 144/80 H Pulse Oximetry 94 100 99 01/31/21 17:57 01/31/21 19:49 01/31/21 20:13 Temperature 98.7 F Pulse Rate 100 101 H 105 H Respiratory Rate 16 17 20 Blood Pressure 170/90 H 165/103 H 166/96 H Pulse Oximetry 100 98 97 01/31/21 20:15 01/31/21 20:30 01/31/21 21:00 Temperature Pulse Rate 102 H 100 102 H Respiratory Rate Blood Pressure 161/93 H 164/90 H 153/89 H Pulse Oximetry 01/31/21 21:30 01/31/21 22:00 01/31/21 22:30 Temperature Pulse Rate 100 99 100 Respiratory Rate Blood Pressure 164/92 H 144/83 H 171/89 H Pulse Oximetry 01/31/21 23:00 01/31/21 23:15 02/01/21 00:00 Temperature 98.2 F 98.7 F Pulse Rate 96 98 97 Respiratory Rate 21 H 16 Blood Pressure 171/90 H 176/102 H 158/87 H Pulse Oximetry 98 99 02/01/21 02:00 02/01/21 03:41 02/01/21 04:00 Temperature 98.7 F Pulse Rate 103 H 101 H 103 H Respiratory Rate 12 Blood Pressure 121/53 L Pulse Oximetry 99 99 02/01/21 06:00 Temperature Pulse Rate 104 H Respiratory Rate Blood Pressure Pulse Oximetry Intake/Output Intake/Output: Intake & Output 01/29/21 01/30/21 01/31/21 02/01/21 23:5
[2021-02-01] MEDS: SODIUM POLYSTYRENE SULFONONATE 15 GM/60 ML BTL 30 GM PO (11:01)
--- NOTE | 2021-02-01 11:33 | PM.DS ---
DS: Admitting Diagnosis Discharge Date 02/01/2021 Admitting Diagnosis volume overload due to inadequate hemodialysis DS: Discharge Diagnosis Discharge Diagnosis (1) Volume overload: Qualifiers: Hypervolemia type: unspecified Qualified Code(s): E87.70 - Fluid overload, unspecified Code(s): E87.70 - Fluid overload, unspecified Status: Acute Assessment and Plan: 02/01 DOING MUCH BETTER AFTER DIALYSIS UNABLE TO GET HD TODAY DUE TO HD RN SHORTAGE PATIENT WISHES TO GO HOME WITH RESTRICTED FLUIDS AND GET HD OUTPATIENT ON WEDNESDAY (2) End-stage renal disease on hemodialysis: Code(s): N18.6 - End stage renal disease; Z99.2 - Dependence on renal dialysis Status: Acute Assessment and Plan: D/W PT COMPLETING EACH DIALYSIS SESSION (3) Anxiety: Code(s): F41.9 - Anxiety disorder, unspecified Status: Acute Assessment and Plan: HE WILL D/W PCP POSSIBLE CBT VS PHARMACEUTICAL TX OF HIS ANXIETY (4) Hypertension: Qualifiers: Hypertension type: essential hypertension Qualified Code(s): I10 - Essential (primary) hypertension Code(s): I10 - Essential (primary) hypertension Status: Chronic Assessment and Plan: IMPROVED AFTER DIALYSIS (5) Chronic anemia: Code(s): D64.9 - Anemia, unspecified Status: Acute Assessment and Plan: H/H STABLE (6) Type 1 diabetes mellitus: Qualifiers: Diabetes mellitus complication status: with kidney complications Diabetes mellitus complication detail: with chronic kidney disease Chronic kidney disease stage: on chronic dialysis Qualified Code(s): E10.22 - Type 1 diabetes mellitus with diabetic chronic kidney disease; N18.6 - End stage renal disease; Z99.2 - Dependence on renal dialysis Code(s): E10.9 - Type 1 diabetes mellitus without complications Status: Acute Assessment and Plan: AM BS 217 DS: Summary Hospital Course Reason for hospitalization: dyspnea and edema Hospital Course: Admitted with dyspnea, incomplete HD sessions, increasing dry weight of over 20 pounds. Underlying issues seems to be anxiety. Patient is willing to participate in CBT if PCP will refer. Improved sx's with HD session 01/31 with removal of 3 L. Unable to dialyze 02/01 but patient wished to discharge and f/u as outpatient. He has home oxygen and currently uses prn. He currently requires 4 L by NC. Status at Discharge Functional status at discharge: independent ambulation Overall status at discharge: patient is progressing back to baseline Time Spent with Patient Time attestation: Total time spent providing and/or coordinating discharge services: Time spent: Greater than 30 minutes Exam Narrative: HEENT: PERRL, sclerae nonicteric, pharyngeal mucosa pink and intact NECK: No JVD, adenopathy, or thyromegaly CHEST: Clear to auscultation. Normal effort. HEART: NL S1/S2, regular, no murmur ABDOMEN: BS+, soft, nontender, no mass, no bruits EXTREMITIES: No cyanosis, TRACE PITTING EDEMA OF ANKLES, 1+ PITTING EDEMA OF THIGHS, NONPITTING PUFFINESS OF HANDS NEUROLOGIC: CN intact and symmetric to inspection. MUSCULOSKELETAL: Tone and strength symmetric. PSYCH: Alert. Oriented to person, place, and time. DS: Data Data Completed and Pending Labs on day of discharge: Labs from last 24 hours 02/01/21 02/01/21 02/01/21 04:49 04:49 03:39 WBC 6.9 RBC 2.32 L Hgb 7.7 L Hct 24.4 L MCV 105.2 H MCH 33.2 MCHC 31.6 L RDW 15.0 H Plt Count 165 MPV 10.1 Sodium 139 Potassium 5.4 H Chloride 95 L Carbon Dioxide 25 Anion Gap 19 H BUN 47 H D Creatinine 5.10 H Estim Creat Clear Calc 20 Estimated GFR 13 L Glucose 217 H POC Capillary Glucose 206 H Calcium 9.4 Phosphorus 6.8 H Magnesium 2.3 Iron TIBC % Saturation Ferritin Total Bilirubin 0.8 AST 161 H ALT 110 H Alkaline Phosphatase 24
--- NOTE | 2021-02-01 12:14 | PM.PNNEP ---
Progress Note: A&P Assessment and Plan (1) ESRD (end stage renal disease) on dialysis: Code(s): N18.6 - End stage renal disease; Z99.2 - Dependence on renal dialysis Status: Acute Assessment and Plan: The patient has end-stage renal disease. He has been on dialysis for a while. We discussed at length his weight gains. He says that he drinks fluid because he is bored. We discuss that when he drinks that much fluid it stresses his heart and so he could develop congestive heart failure. At that point just gaining a L between treatment would make him more short of breath. So now is the time to cut back on the fluids so that he can be easier on his heart. I suggested he take an empty 2L bottle and draw line at the 1.5L viky. Feel that with water every morning and put it in the refrigerator. Any time he drinks water he should drink out of that. This way he can keep track of how much he is drinking and be mindful of where he is for his fluid restriction. If he does drink a cup of coffee then he would take that same cup and put water in it out of that bottle, poor that water out, then filled the cup with cough the and that keeps track of his overall fluid intake. He seem to like this idea. I told him it 1st that he will probably realize that he is drinking all 1.5L by noon but hopefully he can improve and slowly get more compliant with fluid intake. Dialysis nurses are short staffed and are taking care of ICU patient's here and at other hospitals. I do not think we can get to a dialysis today. Ari understands this and wants to go home if her just going to wait till Wednesday for another dialysis anyway. He will be extra careful with his water. (2) Volume overload: Qualifiers: Hypervolemia type: unspecified Qualified Code(s): E87.70 - Fluid overload, unspecified Code(s): E87.70 - Fluid overload, unspecified Status: Acute Assessment and Plan: The patient is volume overloaded by exam and by chest x-ray. This is much better today. (3) Severe hypertension: Code(s): I10 - Essential (primary) hypertension Status: Acute Assessment and Plan: Blood pressure is Much better today after fluid removal. (4) Erythropoietin deficiency anemia: Code(s): D63.1 - Anemia in chronic kidney disease Status: Acute Assessment and Plan: His hemoglobin is low. He does get Epogen. Give him [id number] tonight. (5) Hyponatremia: Code(s): E87.1 - Hypo-osmolality and hyponatremia Status: Acute Assessment and Plan: This is from drinking water . Sodium is better after dialysis. (6) Renal osteodystrophy: Code(s): N25.0 - Renal osteodystrophy Status: Acute Assessment and Plan: Phosphorus high at 6.8. He takes calcium acetate at home. (7) Anxiety and depression: Code(s): F41.9 - Anxiety disorder, unspecified; F32.9 - Major depressive disorder, single episode, unspecified Status: Acute Assessment and Plan: He is on medications for this (8) Type 1 diabetes mellitus: Qualifiers: Diabetes mellitus complication status: with kidney complications Diabetes mellitus complication detail: with chronic kidney disease Chronic kidney disease stage: on chronic dialysis Qualified Code(s): E10.22 - Type 1 diabetes mellitus with diabetic chronic kidney disease; N18.6 - End stage renal disease; Z99.2 - Dependence on renal dialysis Code(s): E10.9 - Type 1 diabetes mellitus without complications Status: Acute Assessment and Plan: He is on Accu-Cheks and sliding-scale insulin Subjective Date/time seen: 02/01/21 12:14 Interval history: the patient is feeling much better today. Coughing is less. Breathing is much better. He still has some swelling. Review of Systems Cardiovascular: Cardiovascular: Reports no additional cardiovascular complaints Respiratory: Respiratory: Re
[2021-02-01] MEDS: FUROSEMIDE INJ 100 MG/10 ML VIAL 60 MG IV PUSH ×2 (12:59→13:48)
== END 2021-02-01 13:57 | disposition home or self-care (01) ==
LOC: ANHED 11:48 → ANHICU 13:55 → ANHIMU 02-01 11:43 → ANHICU 02-04 11:03 → ANHIMU 02-04 11:03
PROVIDERS: Internal Medicine Nephrology; Physician Assistant; Admitting Provider Internal Medicine; Emergency Provider Emergency Medicine; PCP Physician Assistant; Visit Provider Internal Medicine
DX: E10.22 Type 1 diabetes mellitus with diabetic chronic kidney disease (principal); I12.0 Hypertensive chronic kidney disease with stage 5 chronic kidney disease or end stage renal disease; N18.6 End stage renal disease; Z99.2 Dependence on renal dialysis; R06.02 Shortness of breath; D63.1 Anemia in chronic kidney disease; E87.1 Hypo-osmolality and hyponatremia; E87.70 Fluid overload, unspecified; G40.909 Epilepsy, unspecified, not intractable, without status epilepticus; F41.9 Anxiety disorder, unspecified; N25.0 Renal osteodystrophy; Z79.4 Long term (current) use of insulin; Z99.81 Dependence on supplemental oxygen; Z87.891 Personal history of nicotine dependence; Z90.49 Acquired absence of other specified parts of digestive tract
CPT/HCPCS: 36415; 71046; 80053; 82728; 82948; 83540; 83550; 83735; 83880; 84100; 85025; 85027; 93005; 96372; 96374; 96375; 96376; 99285; A9270; G0257; G0378; J1940; J2060; J2405; J7030; Q5105

== ENCOUNTER 2021-04-14 09:30 | Inpatient (IN) | payer MEDICARE, MEDICAID, SELFPAY ==
[2021-04-14] VITALS (19 sets, daily range): BP systolic 166–197; BP diastolic 91–118; PULSE 62–98; RESP 13–27; TEMP 35.8–37; O2SAT 94–100; BMI 26.3
--- NOTE | ~2021-04-14 | XR_ITS ---
EXAMINATION: XR chest 1V portable DATE: 04/14/2021 10:32 INDICATION: Fluid overload TECHNIQUE: frontal view of the chest was obtained. COMPARISON: Chest radiograph dated 01/31/2021 FINDINGS: Increasing opacities in the bilateral lower lung zones consistent with enlarging small bilateral pleu ral effusions with bibasilar atelectasis and/or pneumonia. Pulmonary vascular congestion without defi nitive pulmonary edema. No pneumothorax. Cardiomegaly. IMPRESSION: 1. Enlarging small bilateral pleural effusions with associated basilar atelectasis and/or pneumonia. 2. Cardiomegaly with pulmonary vascular congestion but without definitive pulmonary edema. Reviewed, dictated and finalized at location A. ENTRY SPECIALIST IMPRESSION: 1. Enlarging small bilateral pleural effusions with associated basilar atelecta sis and/or pneumonia. 2. Cardiomegaly with pulmonary vascular congestion but without definitive pulmo nary edema.
--- NOTE | ~2021-04-14 | XR_ITS ---
EXAMINATION: XR chest 1V portable DATE: 04/16/2021 16:11 INDICATION: Tachypnea. Hypothermic. TECHNIQUE: frontal view of the chest was obtained. COMPARISON: Chest radiograph dated 04/14/2021 FINDINGS: Gradient of hazy basilar predominant airspace opacities throughout both lungs with more dense consoli dation at the lung bases. No pneumothorax. Prominent enlargement of the cardiac silhouette with globu lar silhouette which could be due to cardiomegaly and/or the presence of a pericardial effusion. Oblo ng density projecting over the left pectoral region likely representing an implantable cardiac monito r. IMPRESSION: 1. Moderate-sized bilateral pleural effusions with associated lung disease which could represent atel ectasis, pneumonia, pulmonary edema or some combination thereof. 2. Enlarged globular cardiac silhouette which could be due to cardiomegaly and/or pericardial effusio n. Reviewed, dictated and finalized at location A. H RECORDS CLERK IMPRESSION: 1. Moderate-sized bilateral pleural effusions with associated lung disease whic h could represent atelectasis, pneumonia, pulmonary edema or some combination t hereof. 2. Enlarged globular cardiac silhouette which could be due to cardiomegaly and/ or pericardial effusion.
--- NOTE | 2021-04-14 09:55 | ECG_ITS ---
Measurements Intervals [place] Rate: 91 P: 53 KS: 129 QRS: 19 QRSD: 101 T: 91 QT: 389 QTc: 479 Interpretive Statements SINUS RHYTHM DELAYED PRECORDIAL R/S TRANSITION LOW QRS VOLTAGE IN LIMB LEADS BORDERLINE ST-T WAVE ABNORMALITY- HIGH LATERAL LEADS BORDERLINE ECG Electronically Signed On 04-14-2021 13:05:33 HAND I THERMAL CUTTER by Lokesh Luna D.O.
--- NOTE | 2021-04-14 09:57 | ED.GENADULT ---
HPI - General Adult General Chief complaint: Weakness <Angel Shepard DO - Last Filed: 04/14/21 11:32> Stated complaint: weakness <Angel Shepard DO - Last Filed: 04/14/21 11:32> Time Seen by Provider: 04/14/21 09:45 <Angel Shepard DO - Last Filed: 04/14/21 11:32> Related Data Home medications: Home Medications Medication Instructions Recorded Confirmed albuterol sulfate [Ventolin HFA] 2 puff INHALATION Q6H PRN 11/04/19 11/06/20 hydralazine 100 mg PO TID 11/04/19 11/06/20 terazosin 2 mg PO BID 11/04/19 11/06/20 Lantus U-100 Insulin 15 unit SUBCUT HS 06/01/20 11/06/20 amitriptyline 50 mg PO HS 06/01/20 11/06/20 calcium acetate 2 tablet PO TIDWMEAL 06/01/20 11/06/20 escitalopram oxalate 20 mg PO DAILY #0 06/01/20 11/06/20 famotidine 20 mg PO BID 06/01/20 11/06/20 insulin lispro [Humalog U-100 See Rx Instructions .ROUTE .COMPLEX 06/02/20 11/06/20 Insulin] phenytoin sodium extended 100 mg PO TID 06/02/20 11/06/20 [Dilantin Extended] <Angel Shepard DO - Last Filed: 04/14/21 11:32> Allergies/adverse reactions: Allergies Allergy/AdvReac Type Severity Reaction Status Date / Time fluorescein Allergy Severe HIVES, BP Verified 04/14/21 10:09 DROPPED, SWELLING TONGUE Penicillins Allergy Unknown Unknown Verified 04/14/21 10:09 Sulfa (Sulfonamide Allergy Unknown Unknown Verified 04/14/21 10:09 Antibiotics) chlorpromazine Allergy Rash Verified 04/14/21 10:09 [From Thorazine] divalproex sodium AdvReac Confusion Verified 04/14/21 10:09 [From Depakote] <Angel Shepard DO - Last Filed: 04/14/21 11:32> [facility] Past Medical History Medical History: Medical History (Updated 02/01/21 @ 00:14 by Shonna Nieto PA-C) Anemia requiring transfusions Anxiety and depression Asthma End stage renal disease on dialysis Erythropoietin deficiency anemia Hypertension Migraines Renal osteodystrophy Seizure disorder (10/2019) Type 1 diabetes Diagnosed at the age of 14. Hemoglobin A1c was 6.6% on 11/06/2020. <DO Tal Hayden Last Filed: 04/14/21 11:32> Surgical History Surgical History: Surgical History (Updated 02/01/21 @ 00:07 by Shonna Nieto PA-C) History of appendectomy History of cholecystectomy Previous back surgery Status post creation of arteriovenous fistula Status post insertion of dialysis catheter Status post LASIK surgery of both eyes <DO Tal Hayden Last Filed: 04/14/21 11:32> Family History Family History: Family History Mother Diabetes mellitus Cerebrovascular accident Father Hypertension <DO Tal Hayden Last Filed: 04/14/21 11:32> Social History Social History: Social History (Updated 02/01/21 @ 00:08 by Shonna Nieto PA-C) Social History: The patient lives with his . He is disabled. The patient stated that he is on a transplant list for a kidney as well as pancreas but is currently on hold due to his illness. He has no biological children but is has 1 child that he is raising, he adopted a child. The patient is a lifelong nonsmoker. He denies any alcohol marijuana or illicit drug use. His is the durable power patent attorney for healthcare. He desires to be a full code. Smoking packs per day: 0.5 Smoking cigarettes per day: 10.0 Years smoked: 6 Smoking pack-years: 3.00 Smoking status: Former smoker Tobacco type: cigarettes Smokeless tobacco user: chewing tobacco Second hand tobacco smoke exposure: Yes Alcohol intake: never Drinks per week: 10 Substance use: never Substance use type: does not use Last use: 04/23/2019 Gender identity (if verbalized by the patient): Male Spiritual care concerns: No <DO Tal Hayden Last Filed: 04/14/21 11:32> Course [employer]/PA Physician Supervision For this encounter, I have reviewed the [employer] urine doc
[2021-04-14] MEDS: HYDROmorphone HCL INJ (*CRX) 1 MG/ML SYR 0.5 MG IV PUSH ×3 (10:11→21:31)
--- NOTE | 2021-04-14 10:14 | ED.GENADULT ---
HPI - General Adult General Chief complaint: Weakness Stated complaint: weakness Time Seen by Provider: 04/14/21 09:45 Source: patient Mode of arrival: EMS Limitations: no limitations History of Present Illness HPI narrative: 40 y/o male presents to the ER today for complaints of fluid overload. He is renal failure HD patient. He says that he has had problems with fluid overoload for several weeks. He missed a dialysis when we had a bad snow and he has struggled with fluid overload since then. He says that he went to all of his treatments last week but on Wednesday, he only recieved half of his dialysis treatment due to not feeling well. He was seen at [facility] on Wednesday and they discharged him from the ER so that he could go get his dialysis. He went home from dialysis and has been home over the weekend. He is due for his dialysis today but he is feeling poorly and he has increased swelling all the way up his legs and into his abdominal wall. He wears oxygen at home. He has some shortness of breath that is chronic but says that this is no worse than his normal. He denies having any chest pain. No cough or congestion. No fever or chills. He had left hip ORIF about 8 weeks ago. He had hip fracture related to fall. He says that he has been falling frequently lately. He has ongoing chronic pain in his left hip and is requesting something for pain. States that morphine does not help but dilaudid normally does. Related Data Home Medications Medication Instructions Recorded Confirmed albuterol sulfate [Ventolin HFA] 2 puff INHALATION Q6H PRN 11/04/19 11/06/20 hydralazine 100 mg PO TID 11/04/19 11/06/20 terazosin 2 mg PO BID 11/04/19 11/06/20 Lantus U-100 Insulin 15 unit SUBCUT HS 06/01/20 11/06/20 amitriptyline 50 mg PO HS 06/01/20 11/06/20 calcium acetate 2 tablet PO TIDWMEAL 06/01/20 11/06/20 escitalopram oxalate 20 mg PO DAILY #0 06/01/20 11/06/20 famotidine 20 mg PO BID 06/01/20 11/06/20 insulin lispro [Humalog U-100 See Rx Instructions .ROUTE .COMPLEX 06/02/20 11/06/20 Insulin] phenytoin sodium extended 100 mg PO TID 06/02/20 11/06/20 [Dilantin Extended] Allergies Allergy/AdvReac Type Severity Reaction Status Date / Time fluorescein Allergy Severe HIVES, BP Verified 04/14/21 10:09 DROPPED, SWELLING TONGUE Penicillins Allergy Unknown Unknown Verified 04/14/21 10:09 Sulfa (Sulfonamide Allergy Unknown Unknown Verified 04/14/21 10:09 Antibiotics) chlorpromazine Allergy Rash Verified 04/14/21 10:09 [From Thorazine] divalproex sodium AdvReac Confusion Verified 04/14/21 10:09 [From Depakote] Review of Systems Constitutional: Constitutional: Denies chills, Denies fever(s) and Reports weakness Cardiovascular: Cardiovascular: Denies chest pain, Denies rapid heart rate, Denies radiating jaw, neck or arm pain and Denies slow heart rate Respiratory: Respiratory: Denies chest congestion, Denies cough, Reports dyspnea and Denies wheezing Gastrointestinal: Gastrointestinal: Denies abdominal pain, Denies diarrhea, Denies nausea and Denies vomiting Musculoskeletal: Musculoskeletal: Denies myalgias Neurologic: Denies dizziness, Denies headache(s), Denies focal weakness and Denies numbness Psychiatric: Psychiatric: Reports no additional psychiatric complaints Endocrine: Endocrine: Denies polydipsia and Denies polyuria Hematologic/Lymphatic: Hematologic/Lymphatic: Reports no additional hematologic/lymphatic complaints Allergic/Immunologic: Allergic/Immunologic: Reports no additional allergic/immunologic complaints [facility] Past Medical History Medical History (Updated 04/14/21 @ 14:10 by Daphney Dacosta, RYNE) Anemia requiring transfusions Anxiety and depression Asthma End stage renal disease on dialysis Erythropoietin deficiency anemia Hypertension Migraines Renal osteodystrophy Seizure disorder (10/2019) Type 1 diabetes Diagnosed at the age of 14. Hemoglobin A1c was 6.6% on 11/06/2020. Melany
[2021-04-14 10:17] LABS: Basophils Percent Auto 0.5 % (0.2-1.2); Eosinophils Absolute Auto 0.5 K/mm3 (0-0.3); Eosinophils Percent Auto 8.9 % (0-4.4); Hematocrit 22.9 % (42.0-52.0); Hemoglobin 7.4 g/dL (14.0-18.0); Immature Granulocyte Absolute 0.01 K/mm3 (0.00-0.031); Immature Granulocyte Percent A 0.2 % (0-0.5); Lymphocytes Absolute Auto 0.65 K/mm3 (0.9-3.2); Lymphocytes Percent Auto 11.4 % (18.3-44.2); Mean Corpuscular HGB Conc 32.3 g/dl (32-36); Mean Corpuscular Hemoglobin 31.6 pg (26-34); Mean Corpuscular Volume 97.9 fl (80-100); Mean Platelet Volume 9.4 fl (7.4-10.4); Monocytes Absolute Auto 0.5 K/mm3 (0.1-0.6); Monocytes Percent Auto 9.1 % (2.6-8.5); Neutrophils Percent Auto 69.9 % (45.5-73.1); Platelet Count Result 207 k/mm3 (150-375); Red Blood Count 2.34 M/mm3 (4.6-6.20); Red Cell Distribution Width 15.3 % (11.5-14.5); White Blood Count 5.7 K/mm3 (4.5-10.0)
[2021-04-14 10:27] LABS: Alanine Aminotransferase 24 U/L (4-50); Alkaline Phosphatase 183 U/L (38-126); Anion Gap 16 mmol/L (8-16); Aspartate Amino Transferase 40 U/L (17-59); Bilirubin,Total 0.5 mg/dL (0.2-1.3); Blood Urea Nitrogen 85 mg/dL (9-20); Calcium 8.9 mg/dL (8.4-10.2); Carbon Dioxide 29 mmol/L (22-30); Chloride 95 mmol/L (98-107); Estimated CRCL calculation 13 ml/min; Estimated Glomerular Filt Rate 8; Glucose 181 mg/dL (65-110); Lipase 46 U/L (23-300); Potassium 4.6 mmol/L (3.4-5.0); Sodium 140 mmol/L (137-145)
[2021-04-14 10:30] LABS: INR 1.1; Prothrombin Time 13.6 Seconds (11.1-14.7)
[2021-04-14 10:31] LABS: Partial Thromboplastin Time 32.6 SECONDS (22.3-36.8)
[2021-04-14 10:36] LABS: NT Pro B Type Natriuretic Pept > 35000 pg/mL (5-100)
[2021-04-14 10:44] LABS: Troponin I 0.066 ng/mL (0.000-0.034)
[2021-04-14] MEDS: hydrALAZINE HCL 20 MG/ML VIAL 10 MG IV PUSH ×2 (11:45→14:32)
--- NOTE | 2021-04-14 13:56 | PM.IMHP ---
H&P: HPI History of Present Illness Date/Time: 04/14/21 13:56 Chief Complaint: Fluid overload Narrative: This is a 40-year-old male with end-stage renal disease on hemodialysis, insulin-dependent diabetes, and hypertension who presented to the emergency department for shortness of breath, leg swelling, weight gain. The patient states he had been doing well with his fluid restriction since his last hospitalization in January. Then on Wednesday04/09/2021 he had missed his dialysis due to the winter weather and began having some symptoms of leg swelling, shortness of breath and weight gain. He went to dialysis like normal on Wednesday but states he only had half of the treatment because he was having diarrhea. He states diarrhea is chronic for him to have. Since he was feeling so poorly he went to [place] [facility] on Wednesday and they discharged him home. Over the weekend, his symptoms became worse and finally today his dad went to pick him up to take him to dialysis and he was so weak and fatigued that he came to the emergency room for further evaluation instead. Patient also complains of having a productive cough with yellow phlegm production and some associated post-tussive emesis. Patient states he broke his hip after falling about 8 weeks ago and had surgery in [facility]. He still having home health work with him with therapy but states he sustained another fall on April 05, 2021. He went to the emergency room in [place] for further evaluation and they told him his x-ray was negative at that time. He also states he had a 2nd x-ray at [place] emergency room on 04/11/2021 which was also negative for fracture. Patient states he has been able to walk around with his walker without any increased pain or issues. Review of Systems Review of Systems: All systems reviewed & are unremarkable except as noted in HPI and below PMFSH Past Medical History Medical History Anemia requiring transfusions Anxiety and depression Asthma End stage renal disease on dialysis Erythropoietin deficiency anemia Hypertension Migraines Renal osteodystrophy Seizure disorder (10/2019) Type 1 diabetes Diagnosed at the age of 14. Hemoglobin A1c was 6.6% on 11/06/2020. Surgical History Surgical History History of appendectomy History of cholecystectomy Previous back surgery Status post creation of arteriovenous fistula Status post insertion of dialysis catheter Status post LASIK surgery of both eyes Family History Family History Mother Diabetes mellitus Cerebrovascular accident Father Hypertension Social History Social History (Updated 04/14/21 @ 14:12 by Kat Hoyos PA-C) Social History: The patient lives on his own and his parents live right next door. He is disabled. The patient stated that he is on a transplant list for a kidney as well as pancreas but is currently on hold due to his illness. He has no biological children but is has 1 child that he is raising, he adopted a child. The patient states he smoked cigarettes in the past but it was infrequent and not for a long period of time. He denies any alcohol marijuana or illicit drug use. His [id number] is his cousin's Marbella Zuniga and Father Oscar Zuniga. The patient wishes to be a full code. The patient also wishes that his not be informed of any of his medical information during hospitalization. Smoking packs per day: 0.5 Smoking cigarettes per day: 10.0 Years smoked: 6 Smoking pack-years: 3.00 Smoking status: Former smoker Tobacco type: cigarettes Smokeless tobacco user: chewing tobacco Second hand tobacco smoke exposure: Yes Alcohol intake: never Drinks per week: 10 Substance use: never Substance use type: does not use Last use:
--- NOTE | 2021-04-14 13:57 | PC.NURSE ---
mechanical unit repairer ordered room tray at [id number]
[2021-04-14] MEDS: HYDROmorphone HCL INJ (*CRX) 1 MG/ML SYR 0.25 MG IV PUSH (14:18)
[2021-04-14 14:58] LABS: Glucose Point of Care 205 mg/dl (65-105)
[2021-04-14] MEDS: INSULIN ASPART (*BKC) 100 UNITS/ML SUB-Q ×3 (15:01→18:30)
--- NOTE | 2021-04-14 16:22 | PM.CNNEP ---
Assessment and Plan Assessment and plan (1) End-stage renal disease (ESRD): Code(s): N18.6 - End stage renal disease Status: Acute Assessment and Plan: HD tomorrow and continue dialysis 3x/week follow electrolytes, volume status, and clearance (2) Fluid overload: Code(s): E87.70 - Fluid overload, unspecified Status: Acute Assessment and Plan: aggressive fluid removal with HD/DUF as tolerated on IV diuretics as well follow respiratory status (3) Hypertension: Qualifiers: Hypertension type: essential hypertension Qualified Code(s): I10 - Essential (primary) hypertension Code(s): I10 - Essential (primary) hypertension Status: Chronic Assessment and Plan: poor control at baseline question compliance with medications suspect volume overload not helping this issue follow trend with aggressive fluid intake PRN IV hydralazine titrate home medications as needed (4) Anemia: Code(s): D64.9 - Anemia, unspecified Status: Chronic Assessment and Plan: due to ESRD but recent hospitalizations playing a role H/H reading may be dilutional as well given fluid overload status Epogen with HD follow trend H/H PRBC transfusion per protocol (5) Type 1 diabetes: Qualifiers: Diabetes mellitus complication status: with kidney complications Diabetes mellitus complication detail: with chronic kidney disease Chronic kidney disease stage: on chronic dialysis Qualified Code(s): E10.22 - Type 1 diabetes mellitus with diabetic chronic kidney disease; N18.6 - End stage renal disease; Z99.2 - Dependence on renal dialysis Code(s): E10.9 - Type 1 diabetes mellitus without complications Status: Chronic Assessment and Plan: etiology of ESRD brittle control at baseline glycemic control Will continue to follow. History of Present Illness Reason for Consult Consult date: 04/14/21 Reason for consult: end stage renal disease Chief Complaint Chief complaint: Fluid overload History of Present Illness Narrative: The patient is a 40-year-old male with an extensive past medical history as outlined below who presented to [facility] Emergency room with complaints of shortness of breath and swelling/edema everywhere. Next Last week, he missed a session of dialysis due to the weather and since that time he has been having issues and problems with increasing shortness of breath associated with worsening edema in his face, legs, and arms as well as his abdomen. He did go to his dialysis treatment the following Wednesday but was unable to complete his full treatment as he had issues and problems with diarrhea. Following his partial treatment on Wednesday, he did go to [facility] in [place] ER for evaluation but they did not feel he required inpatient care and was discharged home. Subsequently, over the weekend, his shortness of breath and edema continued to deteriorate. He was scheduled to go to his outpatient dialysis treatment today but came to [facility] Emergency room for evaluation as he continued to feel quite poorly. Workup and evaluation in the emergency room demonstrated the patient to be hemodynamically stable ( he was actually quite hypertensive ) with routine blood tests that were consistent with his known history of end-stage renal disease although he was a bit more anemic than usual. However, his physical exam was quite significant for diffuse anasarca particularly with increased swelling/ edema in his face, arms, lower extremities, and abdomen. Not surprisingly, he had an elevated BNP as well. He also had increased pain in his hip and it should be noted that approximately eight weeks ago he broke his hip and had surgical repair of it while he was hospitalized at [place], [place]. He does report subsequent falls on that hip but repeat imaging on prior ER visits at [facility]
[2021-04-14 16:41] LABS: Glucose Point of Care 229 mg/dl (65-105)
--- NOTE | 2021-04-14 16:41 | PC.NURSE ---
Received report from Alissa, room 211 is not clean, charge nurse changed room to 212. Patient is AOX3, c/o left upper leg pain 11/01. Dr Foley informed.
[2021-04-14] MEDS: BUMETANIDE INJ 2.5 MG/10 ML VIAL 3 MG IV PUSH (18:28)
[2021-04-14] MEDS: hydrALAZINE HCL 50 MG TABLET 100 MG PO (18:30)
[2021-04-14] MEDS: PHENYTOIN SODIUM 100 MG EXTENDED RELEASE CAP PO (18:31)
[2021-04-14 18:53] LABS: Troponin I 0.066 ng/mL (0.000-0.034)
[2021-04-14 20:02] LABS: Glucose Point of Care 212 mg/dl (65-105)
[2021-04-14] MEDS: HYDROcodone/acetaminophen (*CRX) 5-325 MG TABLET 1 TAB PO (20:34)
[2021-04-14] MEDS: AMITRIPTYLINE HCL 25 MG TABLET 50 MG PO (22:24)
[2021-04-14] MEDS: INSULIN GLARGINE (*BKC) 100 UNITS/ML 15 UNITS SUB-Q (22:24)
[2021-04-14] MEDS: PANTOPRAZOLE SODIUM IV 40 MG VIAL IV PUSH (22:24)
[2021-04-14] MEDS: ATORVASTATIN 40 MG TABLET PO (22:24)
[2021-04-14] MEDS: VALPROIC ACID 250 MG CAPSULE PO (22:58)
[2021-04-15] VITALS (32 sets, daily range): BP systolic 125–202; BP diastolic 64–105; PULSE 84–115; RESP 14–22; TEMP 35–36.5; O2SAT 92–100
[2021-04-15] MEDS: HYDROmorphone HCL INJ (*CRX) 1 MG/ML SYR 0.5 MG IV PUSH ×3 (00:20→22:23)
[2021-04-15] MEDS: LEVOTHYROXINE SODIUM 50 MCG TABLET PO (05:43)
[2021-04-15] MEDS: VALPROIC ACID 250 MG CAPSULE PO ×3 (05:43→22:24)
--- NOTE | 2021-04-15 07:42 | PCOTNOTE ---
Attempted OT evaluation, per RN patient is off the unit at this time. Will follow and attempt at later time.
[2021-04-15] MEDS: EPOETIN ALFA-EPBX 20,000 UNITS/ML VIAL 20000 UNITS IV PUSH (09:17)
[2021-04-15] MEDS: SODIUM CHLORIDE 0.9% IV 1,000 ML 999 ML IV CONT (09:18)
--- NOTE | 2021-04-15 10:08 | P.PNNP_ITS ---
Progress Note: A&P Assessment and Plan (1) End-stage renal disease (ESRD): Code(s): N18.6 - End stage renal disease Status: Acute Assessment and Plan: * HD today and continue dialysis 3x/week * follow electrolytes, volume status, and clearance (2) Fluid overload: Code(s): E87.70 - Fluid overload, unspecified Status: Acute Assessment and Plan: * aggressive fluid removal with HD/DUF as tolerated * on IV diuretics as well * plan DUF treatment tomorrow for further fluid removal * follow respiratory status (3) Hypertension: Qualifiers: Hypertension type: essential hypertension Qualified Code(s): I10 - Essential (primary) hypertension Code(s): I10 - Essential (primary) hypertension Status: Chronic Assessment and Plan: * poor control at baseline * question compliance with medications as an outpatient * suspect volume overload not helping this issue * follow trend with aggressive fluid intake * would clonidine to PRN (high risk for rebound HTN given compliance issues) * favor titration of terazosin and/or minoxidil * follow trend of hemodynamics (4) Anemia: Code(s): D64.9 - Anemia, unspecified Status: Chronic Assessment and Plan: * due to ESRD but recent hospitalizations playing a role * H/H reading may be dilutional as well given fluid overload status * Epogen with HD * follow trend H/H * PRBC transfusion per protocol (5) Type 1 diabetes: Qualifiers: Diabetes mellitus complication status: with kidney complications Diabetes mellitus complication detail: with chronic kidney disease Chronic kidney disease stage: on chronic dialysis Qualified Code(s): E10.22 - Type 1 diabetes mellitus with diabetic chronic kidney disease; N18.6 - End stage renal disease; Z99.2 - Dependence on renal dialysis Code(s): E10.9 - Type 1 diabetes mellitus without complications Status: Chronic Assessment and Plan: * etiology of ESRD * follow accuchecks * on Lantus and SSI Will continue to follow. Subjective Date/time seen: 04/15/21 10:08 Tolerating dialysis treatment at the time of my visit (seen on HD at ~ 9:40AM); sleeping comfortably and apparently just received some pain medications; no other issues/events overnight or earlier this AM aside from hip pain in association with some anxiety; BP doing a bit better at thsi time. Exam Narrative: General: WD/WN Caucasain male in NAD Heart: normal S1 and S2; no rub Lungs: coarse with bivasilar crackles Abdomen: soft, nontender, nondistended, positive bowel sounds Extremities: no cyanosis or clubbing; 2 - 3+ edema Skin: warm and dry Objective Data Vital Signs Vital Signs: Vital Signs Temp Pulse Resp BP Pulse Ox 04/15/21 10:00 95 164/82 H 04/15/21 09:45 96 159/80 H 04/15/21 09:35 96 167/86 H 04/15/21 09:15 96 173/93 H 04/15/21 09:00 95 164/87 H 04/15/21 08:45 95 156/90 H 04/15/21 08:30 95 160/89 H 04/15/21 08:15 93 176/92 H 04/15/21 08:00 96 169/85 H 04/15/21 07:45 95 175/92 H 04/15/21 07:30 95 172/95 H 04/15/21 07:15 96 176/96 H 04/15/21 07:05 97 188/100 H 04/15/21 06:50 36.4 C L 96 16 193/105 H 04/15/21 06:00 98 04/15/21 04:40 36.3 C L 97 14 175/102 H 97
--- NOTE | 2021-04-15 10:08 | PM.PNNEP ---
Progress Note: A&P Assessment and Plan (1) End-stage renal disease (ESRD): Code(s): N18.6 - End stage renal disease Status: Acute Assessment and Plan: HD today and continue dialysis 3x/week follow electrolytes, volume status, and clearance (2) Fluid overload: Code(s): E87.70 - Fluid overload, unspecified Status: Acute Assessment and Plan: aggressive fluid removal with HD/DUF as tolerated on IV diuretics as well plan DUF treatment tomorrow for further fluid removal follow respiratory status (3) Hypertension: Qualifiers: Hypertension type: essential hypertension Qualified Code(s): I10 - Essential (primary) hypertension Code(s): I10 - Essential (primary) hypertension Status: Chronic Assessment and Plan: poor control at baseline question compliance with medications as an outpatient suspect volume overload not helping this issue follow trend with aggressive fluid intake would clonidine to PRN (high risk for rebound HTN given compliance issues) favor titration of terazosin and/or minoxidil follow trend of hemodynamics (4) Anemia: Code(s): D64.9 - Anemia, unspecified Status: Chronic Assessment and Plan: due to ESRD but recent hospitalizations playing a role H/H reading may be dilutional as well given fluid overload status Epogen with HD follow trend H/H PRBC transfusion per protocol (5) Type 1 diabetes: Qualifiers: Diabetes mellitus complication status: with kidney complications Diabetes mellitus complication detail: with chronic kidney disease Chronic kidney disease stage: on chronic dialysis Qualified Code(s): E10.22 - Type 1 diabetes mellitus with diabetic chronic kidney disease; N18.6 - End stage renal disease; Z99.2 - Dependence on renal dialysis Code(s): E10.9 - Type 1 diabetes mellitus without complications Status: Chronic Assessment and Plan: etiology of ESRD follow accuchecks on Lantus and SSI Will continue to follow. Subjective Date/time seen: 04/15/21 10:08 Tolerating dialysis treatment at the time of my visit (seen on HD at ~ 9:40AM); sleeping comfortably and apparently just received some pain medications; no other issues/events overnight or earlier this AM aside from hip pain in association with some anxiety; BP doing a bit better at thsi time. Exam Narrative: General: WD/WN Caucasain male in NAD Heart: normal S1 and S2; no rub Lungs: coarse with bivasilar crackles Abdomen: soft, nontender, nondistended, positive bowel sounds Extremities: no cyanosis or clubbing; 2 - 3+ edema Skin: warm and dry Objective Data Vital Signs Vital Signs: Vital Signs Temp Pulse Resp BP Pulse Ox 04/15/21 10:00 95 164/82 H 04/15/21 09:45 96 159/80 H 04/15/21 09:35 96 167/86 H 04/15/21 09:15 96 173/93 H 04/15/21 09:00 95 164/87 H 04/15/21 08:45 95 156/90 H 04/15/21 08:30 95 160/89 H 04/15/21 08:15 93 176/92 H 04/15/21 08:00 96 169/85 H 04/15/21 07:45 95 175/92 H 04/15/21 07:30 95 172/95 H 04/15/21 07:15 96 176/96 H 04/15/21 07:05 97 188/100 H 04/15/21 06:50 36.4 C L 96 16 193/105 H 04/15/21 06:00 98 04/15/21 04:40 36.3 C L 97 14 175/102 H 97 04/15/21 04:00 97 15 100 04/15/21 02:00 96 04/15/21 00:00 96 15 100 04/14/21 23:08 36.5 C 69 20 166/103 H 94 04/14/21 22:00 81 04/14/21 20:00 37.0 C 97 18 188/92 H 96 04/14/21 18:00 95 04/14/21 16:39 35.8 C L 95 22 H 197/108 H 100 04/14/21 16:06 97 18 180/99 H 100 04/14/21 14:31 98 21 H 176/95 H 04/14/21 14:30 96 18 04/14/21 14:19 95 13 185/100 H 95 04/14/21 14:16 95 15 189/105 H 04/14/21 14:01 97 17 171/101 H 04/14/21 13:46 187/102 H 04/14/21 13:31 96 17 180/104 H 04/14/21 13:30 96 21 H 04/14/21 11:27 99 04/14/21
[2021-04-15] MEDS: DEXTROSE 50% 25 GM/50 ML SYRINGE IV PUSH ×2 (11:15→13:18)
[2021-04-15] MEDS: PHENYTOIN SODIUM 100 MG EXTENDED RELEASE CAP PO ×3 (11:22→18:14)
[2021-04-15] MEDS: CALCIUM ACETATE 667 MG TABLET 1334 MG PO ×3 (11:22→18:18)
[2021-04-15] MEDS: BUMETANIDE INJ 2.5 MG/10 ML VIAL 3 MG IV PUSH ×2 (11:28→18:13)
--- NOTE | 2021-04-15 11:29 | PM.IMPN ---
Progress Note: A&P Assessment and Plan (1) Volume overload: Qualifiers: Hypervolemia type: unspecified Qualified Code(s): E87.70 - Fluid overload, unspecified Code(s): E87.70 - Fluid overload, unspecified Status: Acute Assessment and Plan: Due to the patient missing dialysis and only having a half of the treatment after that. Talked to the patient's pan reclaim processor who recommended trying IV Bumex 3 mg b.i.d. to help with removing fluid Continue dialysis at this time in as ordered by the pan reclaim processor Monitor weight daily Fluid restriction 1500 cc daily Strict intake and output Continue monitoring. Appreciate Nephrology's input (2) End-stage renal disease on hemodialysis: Code(s): N18.6 - End stage renal disease; Z99.2 - Dependence on renal dialysis Status: Acute Assessment and Plan: Received dialysis Wednesday. Creatinine is up to 7.8, BUN 85, but he has normal electrolytes Will recheck his labs after dialysis today Nephrology is consulted for further evaluation and dialysis orders (3) Uncontrolled hypertension: Code(s): I10 - Essential (primary) hypertension Status: Acute Assessment and Plan: Patient's blood pressure is elevated 164/82. Most likely due to fluid overload status Continuous home medications P.r.n. hydralazine as needed for systolic greater than 170 or diastolic greater than 100 Continue monitoring make adjustments if needed. (4) Type 1 diabetes mellitus: Qualifiers: Diabetes mellitus complication status: with kidney complications Diabetes mellitus complication detail: with chronic kidney disease Chronic kidney disease stage: on chronic dialysis Qualified Code(s): E10.22 - Type 1 diabetes mellitus with diabetic chronic kidney disease; N18.6 - End stage renal disease; Z99.2 - Dependence on renal dialysis Code(s): E10.9 - Type 1 diabetes mellitus without complications Status: Acute Assessment and Plan: Patient is an insulin-dependent diabetic and states his insulin dosing depends on his glucose reading. Normally his Lantus is 15-20 units depending on his glucose reading. He states sliding scale Humalog is 5 units to 20 units depending on his glucose reading. I will restart Lantus at 15 units HS Scheduled Novolog 4 Units TIDWM + SSI Continue monitoring glucose a.c. HS. Hypoglycemic protocol in place. Sliding scale insulin ordered. (5) Chronic anemia: Code(s): D64.9 - Anemia, unspecified Status: Acute Assessment and Plan: H&H is chronically low given his end-stage renal disease and dialysis. Hemoglobin of 7.4, hematocrit 22%. Appears to be at his baseline. No signs of acute bleeding at this time. Continue monitoring H&H and if hemoglobin gets below 7 will need transfusion. (6) Elevated troponin: Code(s): R77.8 - Other specified abnormalities of plasma proteins Status: Acute Assessment and Plan: Most likely due to a type 2 infarction because of his fluid overload status. Patient is not currently having any chest pain at this time. Review EKG from 01/31/2021 and today shows no acute change to ST T-waves, normal sinus rhythm with rate 91 beats per minute Continue monitoring for any chest pain or other concerns. Time Spent With Patient Time with patient: 25 - 35 minutes Subjective Date/time seen: 04/15/21 11:29 Interval history: Date of service 04/15/2021: Patient is a poor historian. He was evaluated while undergoing dialysis and was sleeping. He is arousable to touch and his name, but then quickly falls right back asleep after answering her question. Suppos
[2021-04-15 12:14] LABS: Albumin Level 3.6 g/dL (3.5-5.1); Anion Gap 13 mmol/L (8-16); Blood Urea Nitrogen 64 mg/dL (9-20); Calcium 8.3 mg/dL (8.4-10.2); Carbon Dioxide 29 mmol/L (22-30); Chloride 97 mmol/L (98-107); Estimated CRCL calculation 17 ml/min; Estimated Glomerular Filt Rate 10; Glucose 93 mg/dL (65-110); Phosphorus 8.2 mg/dL (2.5-4.5); Potassium 4.6 mmol/L (3.4-5.0); Sodium 139 mmol/L (137-145)
[2021-04-15 12:18] LABS: Glucose Point of Care 34 mg/dl (65-105)
[2021-04-15 12:18] LABS: Glucose Point of Care 84 mg/dl (65-105)
[2021-04-15 12:18] LABS: Glucose Point of Care 78 mg/dl (65-105)
[2021-04-15 12:21] LABS: Hematocrit 23.7 % (42.0-52.0); Hemoglobin 7.7 g/dL (14.0-18.0); Mean Corpuscular HGB Conc 32.5 g/dl (32-36); Mean Corpuscular Hemoglobin 31.6 pg (26-34); Mean Corpuscular Volume 97.1 fl (80-100); Mean Platelet Volume 9.4 fl (7.4-10.4); Platelet Count Result 206 k/mm3 (150-375); Red Blood Count 2.44 M/mm3 (4.6-6.20); Red Cell Distribution Width 15.4 % (11.5-14.5); White Blood Count 7.1 K/mm3 (4.5-10.0)
[2021-04-15 13:07] LABS: Glucose Point of Care 71 mg/dl (65-105)
[2021-04-15] MEDS: diphenhydrAMINE HCl CAP 25 MG CAPSULE 50 MG PO ×2 (15:52→22:23)
[2021-04-15] MEDS: ASPIRIN 81 MG CHEWABLE TABLET PO (15:52)
[2021-04-15] MEDS: LORATADINE/PSEUDOEPHEDRINE (*CRX) 10/240 MG TABLET ER 24 HR 1 TAB PO (15:53)
[2021-04-15] MEDS: hydrALAZINE HCL 50 MG TABLET 100 MG PO ×2 (15:55→18:18)
[2021-04-15] MEDS: HYDROcodone/acetaminophen (*CRX) 5-325 MG TABLET 1 TAB PO ×2 (16:07→20:11)
[2021-04-15 16:43] LABS: Glucose Point of Care 118 mg/dl (65-105)
[2021-04-15] MEDS: minoxidiL 2.5 MG TABLET PO (18:14)
[2021-04-15] MEDS: carvediloL 25 MG TABLET PO (18:18)
[2021-04-15] MEDS: cloNIDine HCL 0.1 MG TABLET 0.3 MG PO (18:20)
[2021-04-15] MEDS: TERAZOSIN HCL 1 MG CAPSULE 2 MG PO (18:21)
[2021-04-15] MEDS: SEVELAMER CARBONATE 800 MG TABLET PO (18:22)
[2021-04-15 19:49] LABS: Glucose Point of Care 135 mg/dl (65-105)
[2021-04-15] MEDS: AMITRIPTYLINE HCL 25 MG TABLET 50 MG PO (20:12)
[2021-04-15] MEDS: PANTOPRAZOLE SODIUM IV 40 MG VIAL IV PUSH (20:12)
[2021-04-15] MEDS: ATORVASTATIN 40 MG TABLET PO (20:12)
[2021-04-16] VITALS (40 sets, daily range): BP systolic 111–156; BP diastolic 60–96; PULSE 58–87; RESP 12–22; TEMP 34.3–36.6; O2SAT 95–100
[2021-04-16] MEDS: INSULIN GLARGINE (*BKC) 100 UNITS/ML SUB-Q
[2021-04-16 00:04] LABS: Glucose Point of Care 164 mg/dl (65-105)
[2021-04-16] MEDS: HYDROcodone/acetaminophen (*CRX) 5-325 MG TABLET 1 TAB PO ×4 (00:08→22:42)
[2021-04-16] MEDS: HYDROmorphone HCL INJ (*CRX) 1 MG/ML SYR 0.5 MG IV PUSH ×6 (01:40→23:43)
[2021-04-16] MEDS: diphenhydrAMINE HCl CAP 25 MG CAPSULE 50 MG PO (04:41)
[2021-04-16] MEDS: LEVOTHYROXINE SODIUM 50 MCG TABLET PO (05:43)
[2021-04-16] MEDS: VALPROIC ACID 250 MG CAPSULE PO ×3 (05:43→22:13)
[2021-04-16 06:51] LABS: Hematocrit 21.2 % (42.0-52.0); Mean Corpuscular HGB Conc 32.1 g/dl (32-36); Mean Corpuscular Hemoglobin 31.6 pg (26-34); Mean Corpuscular Volume 98.6 fl (80-100); Platelet Count Result 148 k/mm3 (150-375); Red Blood Count 2.15 M/mm3 (4.6-6.20); Red Cell Distribution Width 15.5 % (11.5-14.5); White Blood Count 6.2 K/mm3 (4.5-10.0)
[2021-04-16 07:05] LABS: Albumin Level 3.4 g/dL (3.5-5.1); Anion Gap 11 mmol/L (8-16); Blood Urea Nitrogen 67 mg/dL (9-20); Calcium 8.8 mg/dL (8.4-10.2); Carbon Dioxide 32 mmol/L (22-30); Chloride 96 mmol/L (98-107); Estimated CRCL calculation 14 ml/min; Estimated Glomerular Filt Rate 8; Glucose 123 mg/dL (65-110); Phosphorus 9.3 mg/dL (2.5-4.5); Potassium 4.6 mmol/L (3.4-5.0); Sodium 139 mmol/L (137-145)
[2021-04-16 07:42] LABS: Hemoglobin 6.8 g/dL (14.0-18.0)
[2021-04-16 08:13] LABS: Glucose Point of Care 97 mg/dl (65-105)
[2021-04-16] MEDS: carvediloL 25 MG TABLET PO ×2 (08:58→16:28)
[2021-04-16] MEDS: CALCIUM ACETATE 667 MG TABLET 1334 MG PO ×3 (08:58→16:27)
[2021-04-16] MEDS: SEVELAMER CARBONATE 800 MG TABLET PO ×3 (09:05→16:31)
[2021-04-16] MEDS: cloNIDine HCL 0.1 MG TABLET 0.3 MG PO ×2 (09:06→16:28)
[2021-04-16] MEDS: BUMETANIDE INJ 2.5 MG/10 ML VIAL 3 MG IV PUSH ×2 (09:06→16:26)
[2021-04-16] MEDS: ESCITALOPRAM OXALATE 10 MG TABLET 20 MG PO (09:07)
[2021-04-16] MEDS: ENOXAPARIN 30 MG/0.3 ML SYRINGE SUB-Q (09:07)
[2021-04-16] MEDS: minoxidiL 2.5 MG TABLET PO ×2 (09:08→16:29)
[2021-04-16] MEDS: hydrALAZINE HCL 50 MG TABLET 100 MG PO ×3 (09:08→16:29)
[2021-04-16] MEDS: PHENYTOIN SODIUM 100 MG EXTENDED RELEASE CAP PO ×3 (09:08→16:30)
[2021-04-16] MEDS: PANTOPRAZOLE SODIUM IV 40 MG VIAL IV PUSH ×2 (09:08→22:13)
[2021-04-16] MEDS: TERAZOSIN HCL 1 MG CAPSULE 2 MG PO ×2 (09:09→16:30)
[2021-04-16] MEDS: ASPIRIN 81 MG CHEWABLE TABLET PO (09:12)
[2021-04-16] MEDS: INSULIN ASPART (*BKC) 100 UNITS/ML SUB-Q ×2 (09:29→12:46)
--- NOTE | 2021-04-16 11:32 | P.CDI_ITS ---
CDI Query Clarification Request -04/14/21 ECG data in ER shows: Ischemic changes: acute NSTEMI, ST elevation and t wave inversions EKG Interpretation: sinus rhythm, no ectopy and NL axis -04/14/21 provider documented: Elevated troponin: Code(s): R77.8 - Other specified abnormalities of plasma proteins Status: Acute Assessment and Plan: Most likely due to a type 2 infarction because of his fluid overload status. Patient is not currently having any chest pain at this time. Review EKG from 01/31/2021 and today shows no acute change to ST T- waves, normal sinus rhythm with rate 91 beats per minute Please clarify if NSTEMI ruled in or ruled out or unable to determine Please clarify if type 2 infarct is corresponding diagnosis or unable to determine <Olya Denis - Last Filed: 04/16/21 11:43> Unable to determine. Pt's enzymes are elevated, but there has been no Cardiology evaluation. They are elevated chronically as a result of his ESRD. <SOM Erazo - Last Filed: 04/16/21 16:00>
[2021-04-16 13:18] LABS: Glucose Point of Care 106 mg/dl (65-105)
--- NOTE | 2021-04-16 13:47 | PM.PNNEP ---
Progress Note: A&P Assessment and Plan (1) End-stage renal disease (ESRD): Code(s): N18.6 - End stage renal disease Status: Acute Assessment and Plan: HD yesterday and continue dialysis 3x/week follow electrolytes, volume status, and clearance likely next HD treatment on Wednesday (2) Fluid overload: Code(s): E87.70 - Fluid overload, unspecified Status: Acute Assessment and Plan: aggressive fluid removal with HD/DUF as tolerated on IV diuretics as well plan DUF treatment today for further fluid removal follow respiratory status (3) Hypertension: Qualifiers: Hypertension type: essential hypertension Qualified Code(s): I10 - Essential (primary) hypertension Code(s): I10 - Essential (primary) hypertension Status: Chronic Assessment and Plan: poor control at baseline suspect volume overload not helping this issue follow trend with aggressive fluid intake changed clonidine to PRN (high risk for rebound HTN given compliance issues) favor titration of terazosin and/or minoxidil follow trend of hemodynamics (4) Anemia: Code(s): D64.9 - Anemia, unspecified Status: Chronic Assessment and Plan: due to ESRD but recent hospitalizations playing a role H/H reading may be dilutional as well given fluid overload status Epogen with HD follow trend H/H PRBC transfusion per protocol (5) Type 1 diabetes: Qualifiers: Diabetes mellitus complication status: with kidney complications Diabetes mellitus complication detail: with chronic kidney disease Chronic kidney disease stage: on chronic dialysis Qualified Code(s): E10.22 - Type 1 diabetes mellitus with diabetic chronic kidney disease; N18.6 - End stage renal disease; Z99.2 - Dependence on renal dialysis Code(s): E10.9 - Type 1 diabetes mellitus without complications Status: Chronic Assessment and Plan: etiology of ESRD follow accuchecks on Lantus and SSI Will continue to follow. Subjective Date/time seen: 04/16/21 13:47 Tolerated dialysis/DUF yesterday without any issue or problems; more fatigued today and noted to be hypothermic this afternoon as well - José hugger is in place now; shortness of breath seems to be doing better; scheduled for DUF treatment today for further fluid removal. Exam Narrative: General: WD/WN Caucasain male in NAD Heart: normal S1 and S2; no rub Lungs: coarse with a few basilar crackles Abdomen: soft, nontender, nondistended, positive bowel sounds Extremities: no cyanosis or clubbing; 2+ edema Skin: warm and intact Objective Data Vital Signs Vital Signs: Vital Signs Temp Pulse Resp BP Pulse Ox 04/16/21 13:38 34.9 C L 64 111/74 100 04/16/21 08:58 78 04/16/21 08:00 36.3 C L 74 18 150/96 H 98 04/16/21 06:00 58 L 04/16/21 04:00 35.6 C L 79 20 119/66 99 04/16/21 02:00 79 04/16/21 00:00 87 98 04/15/21 23:40 88 04/15/21 23:30 36.4 C 88 20 129/76 97 04/15/21 22:00 84 04/15/21 20:00 90 100 04/15/21 19:58 36.5 C 90 20 153/83 H 100 04/15/21 18:18 115 H Intake/Output Intake/Output: Intake & Output 04/13/21 04/14/21 04/15/21 04/16/21 23:59 23:59 23:59 23:59 Intake Total 240 1210 830 Output Total 0 5250 0 Balance 240 -4040 830 Meds/Results Medications: Active Medications Generic Name Dose Route Start Last Admin Trade Name Freq PRN Reason Stop Dose Admin Acetaminophen 650 mg 04/14/21 14:02 Acetaminophen 325 Mg Tablet PO Q4H PRN Mild Pain (1-3) or Fever Hydrocodone Bitart/Acetaminophen 1 tab 04/14/21 14:02 04/16/21 17:07 Hydrocodone/Acetaminophen (*Crx) 5-325 Mg Tablet PO 1 tab Q4H PRN Administration Pain Rated 4-6 Albuterol 2 puff 04/14/21 17:49 Albuterol Sulfate (*Sp) Aerosol 1 Puff INHALATION Q6H PRN Wheezing Amitriptyline HCl 50 mg 04/14/21 21:00
--- NOTE | 2021-04-16 13:47 | P.PNNP_ITS ---
Progress Note: A&P Assessment and Plan (1) End-stage renal disease (ESRD): Code(s): N18.6 - End stage renal disease Status: Acute Assessment and Plan: * HD yesterday and continue dialysis 3x/week * follow electrolytes, volume status, and clearance * likely next HD treatment on Wednesday (2) Fluid overload: Code(s): E87.70 - Fluid overload, unspecified Status: Acute Assessment and Plan: * aggressive fluid removal with HD/DUF as tolerated * on IV diuretics as well * plan DUF treatment today for further fluid removal * follow respiratory status (3) Hypertension: Qualifiers: Hypertension type: essential hypertension Qualified Code(s): I10 - Essential (primary) hypertension Code(s): I10 - Essential (primary) hypertension Status: Chronic Assessment and Plan: * poor control at baseline * suspect volume overload not helping this issue * follow trend with aggressive fluid intake * changed clonidine to PRN (high risk for rebound HTN given compliance issues) * favor titration of terazosin and/or minoxidil * follow trend of hemodynamics (4) Anemia: Code(s): D64.9 - Anemia, unspecified Status: Chronic Assessment and Plan: * due to ESRD but recent hospitalizations playing a role * H/H reading may be dilutional as well given fluid overload status * Epogen with HD * follow trend H/H * PRBC transfusion per protocol (5) Type 1 diabetes: Qualifiers: Diabetes mellitus complication status: with kidney complications Diabetes mellitus complication detail: with chronic kidney disease Chronic kidney disease stage: on chronic dialysis Qualified Code(s): E10.22 - Type 1 diabetes mellitus with diabetic chronic kidney disease; N18.6 - End stage renal disease; Z99.2 - Dependence on renal dialysis Code(s): E10.9 - Type 1 diabetes mellitus without complications Status: Chronic Assessment and Plan: * etiology of ESRD * follow accuchecks * on Lantus and SSI Will continue to follow. Subjective Date/time seen: 04/16/21 13:47 Tolerated dialysis/DUF yesterday without any issue or problems; more fatigued today and noted to be hypothermic this afternoon as well - José hugger is in place now; shortness of breath seems to be doing better; scheduled for DUF treatment today for further fluid removal. Exam Narrative: General: WD/WN Caucasain male in NAD Heart: normal S1 and S2; no rub Lungs: coarse with a few basilar crackles Abdomen: soft, nontender, nondistended, positive bowel sounds Extremities: no cyanosis or clubbing; 2+ edema Skin: warm and intact Objective Data Vital Signs Vital Signs: Vital Signs Temp Pulse Resp BP Pulse Ox 04/16/21 13:38 34.9 C L 64 111/74 100 04/16/21 08:58 78 04/16/21 08:00 36.3 C L 74 18 150/96 H 98 04/16/21 06:00 58 L 04/16/21 04:00 35.6 C L 79 20 119/66 99 04/16/21 02:00 79 04/16/21 00:00 87 98 04/15/21 23:40 88 04/15/21 23:30 36.4 C 88 20 129/76 97 04/15/21 22:00 84 04/15/21 20:00 90 100 04/15/21 19:58 36.5 C 90 20 153/83 H 100 04/15/21 18:18 115 H Intake/Output Intake/Output: Intake & Output 04/13/21 04/14/21 04/15/21 04/16/21 23:59 23:59 23:59 23:59
--- NOTE | 2021-04-16 14:20 | PCOTNOTE ---
Hold OT services this date per RN due to low temps. Continue per POC.
--- NOTE | 2021-04-16 16:00 | PM.IMPN ---
Progress Note: A&P Assessment and Plan (1) Hypothermia: Onset Date: ~04/16/21 Qualifiers: Encounter type: initial encounter Qualified Code(s): T68.XXXA - Hypothermia, initial encounter Code(s): T68.XXXA - Hypothermia, initial encounter Status: Acute Assessment and Plan: - Etiology unknown. - Remainder of VSS. - José Hugger ordered with rectal temperatures. - CBC, CMP, Lactic Acid, Blood Cultures x2 ordered to be drawn in Dialysis this evening. Stat Portable CXR ordered. - Continue to monitor labs and vitals. - Elevated TSH at >8, but preserved T4. This will need to be remotely followed upon discharge. Additional Plan Assessment and Plan (1) Volume overload: Qualifiers: Hypervolemia type: unspecified Qualified Code(s): E87.70 - Fluid overload, unspecified Code(s): E87.70 - Fluid overload, unspecified Status: Acute Assessment and Plan: - Due to the patient missing dialysis and only having a half of the treatment after that. 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 to help with removing fluid - Continue dialysis at this time in as ordered by the after school program director - Monitor weight daily - Fluid restriction 1500 cc daily - Strict intake and output - Nephrology covering. (2) End-stage renal disease on hemodialysis: Code(s): N18.6 - End stage renal disease; Z99.2 - Dependence on renal dialysis Status: Acute Assessment and Plan: - Received dialysis Wednesday. - Nephrology is consulted for further evaluation and dialysis orders (3) Uncontrolled hypertension: Code(s): I10 - Essential (primary) hypertension Status: Acute Assessment and Plan: - Poorly controlled likely due to poorly controlled Renal status and incomplete filtering from dialysis. - Continue home medications - P.r.n. hydralazine as needed for systolic greater than 170 or diastolic greater than 100 - Continue monitoring make adjustments if needed. (4) Type 1 diabetes mellitus: Qualifiers: Diabetes mellitus complication status: with kidney complications Diabetes mellitus complication detail: with chronic kidney disease Chronic kidney disease stage: on chronic dialysis Qualified Code(s): E10.22 - Type 1 diabetes mellitus with diabetic chronic kidney disease; N18.6 - End stage renal disease; Z99.2 - Dependence on renal dialysis Code(s): E10.9 - Type 1 diabetes mellitus without complications Status: Acute Assessment and Plan: - Patient is an insulin-dependent diabetic and states his insulin dosing depends on his glucose reading. Normally his Lantus is 15-20 units depending on his glucose reading. He states sliding scale Humalog is 5 units to 20 units depending on his glucose reading. - Continue home dose of Lantus at 15 units. - Scheduled Novolog 4 Units TIDWM + SSI - Continue monitoring glucose a.c. HS. Hypoglycemic protocol in place. Sliding scale insulin ordered. (5) Chronic anemia: Code(s): D64.9 - Anemia, unspecified Status: Acute Assessment and Plan: - H&H is chronically low given his end-stage renal disease and dialysis. - No signs of acute bleeding at this time. - Continue monitoring H&H and if hemoglobin gets below 7 will need transfusion. - Low Hgb today, so pt. will be transfused two units PRBC's. (6) Elevated troponin: Code(s): R77.8 - Other specified abnormalities of plasma proteins Status: Acute Assessment and Plan: - Likely due to ischemic demand from ESRD and chronic dialysis. - Asymptomatic of any Cardiac etiology. Low threshold for cardiac causation. - Review EKG from 01/31/2021 and today shows no ac
[2021-04-16 16:13] LABS: Basophils Percent Auto 0.4 % (0.2-1.2); Eosinophils Absolute Auto 0.5 K/mm3 (0-0.3); Eosinophils Percent Auto 10.1 % (0-4.4); Hematocrit 22.9 % (42.0-52.0); Hemoglobin 7.2 g/dL (14.0-18.0); Immature Granulocyte Absolute 0.01 K/mm3 (0.00-0.031); Immature Granulocyte Percent A 0.2 % (0-0.5); Lymphocytes Absolute Auto 0.49 K/mm3 (0.9-3.2); Lymphocytes Percent Auto 10.1 % (18.3-44.2); Mean Corpuscular HGB Conc 31.4 g/dl (32-36); Mean Corpuscular Hemoglobin 31.7 pg (26-34); Mean Corpuscular Volume 100.9 fl (80-100); Mean Platelet Volume 9.1 fl (7.4-10.4); Monocytes Absolute Auto 0.4 K/mm3 (0.1-0.6); Monocytes Percent Auto 7.2 % (2.6-8.5); Neutrophils Absolute Auto 3.5 K/mm3 (1.3-6.7); Platelet Count Result 140 k/mm3 (150-375); Red Blood Count 2.27 M/mm3 (4.6-6.20); Red Cell Distribution Width 15.7 % (11.5-14.5); White Blood Count 4.8 K/mm3 (4.5-10.0)
[2021-04-16] MEDS: DEXTROSE 50% 25 GM/50 ML SYRINGE IV PUSH (16:23)
[2021-04-16 16:27] LABS: Magnesium 2.3 mg/dL (1.6-2.3)
[2021-04-16] MEDS: SODIUM CHLORIDE 0.9% IV 250 ML 30 ML IV CONT (16:52)
[2021-04-16] MEDS: TUBING, BLOOD PLUM PUMP TUBING 1 EACH XX (16:52)
[2021-04-16 17:00] LABS: Glucose Point of Care 39 mg/dl (65-105)
[2021-04-16 17:00] LABS: Glucose Point of Care 35 mg/dl (65-105)
[2021-04-16 17:00] LABS: Lactic Acid Reflex < 0.5 mmol/L (0.7-2.1)
[2021-04-16 17:08] LABS: Glucose Point of Care 56 mg/dl (65-105)
[2021-04-16 17:50] LABS: Glucose Point of Care 117 mg/dl (65-105)
[2021-04-16] MEDS: SODIUM CHLORIDE 0.9% IV 1,000 ML 100 ML IV CONT (18:10)
[2021-04-16 18:49] LABS: Influenza A QL RT-PCR Negative (Negative); Influenza B QL RT-PCR Negative (Negative); SARS-CoV-2 RNA PCR Negative
--- NOTE | 2021-04-16 18:51 | PC.NURSE ---
Pt taken to dialysis with PRBC infusing, temp 97.2 at time of transfer, glu 117. Bedside report given to HD RN, states pt is not able to eat dinner in dialysis room.
[2021-04-16] MEDS: EPOETIN ALFA-EPBX 10,000 UNITS/ML VIAL 10000 UNITS IV PUSH (20:43)
[2021-04-16] MEDS: levETIRAcetam 500 MG TABLET PO (22:48)
[2021-04-16] MEDS: ATORVASTATIN 40 MG TABLET PO (22:49)
[2021-04-16] MEDS: AMITRIPTYLINE HCL 25 MG TABLET 50 MG PO (22:49)
[2021-04-16 23:25] LABS: Glucose Point of Care 100 mg/dl (65-105)
[2021-04-17] VITALS (8 sets, daily range): BP systolic 128–152; BP diastolic 71–87; PULSE 80–90; RESP 14–20; TEMP 36.3–36.8; O2SAT 90–97
[2021-04-17] MEDS: HYDROmorphone HCL INJ (*CRX) 1 MG/ML SYR 0.5 MG IV PUSH ×3 (02:46→09:27)
[2021-04-17 02:51] LABS: Vancomycin Trough < 5.0 ug/mL (10.0-20.0)
[2021-04-17] MEDS: diphenhydrAMINE HCl CAP 25 MG CAPSULE 50 MG PO (02:56)
[2021-04-17 04:48] LABS: Glucose Point of Care 143 mg/dl (65-105)
[2021-04-17 05:19] LABS: Basophils Percent Auto 0.3 % (0.2-1.2); Eosinophils Absolute Auto 0.8 K/mm3 (0-0.3); Eosinophils Percent Auto 13.1 % (0-4.4); Hematocrit 26.7 % (42.0-52.0); Hemoglobin 8.6 g/dL (14.0-18.0); Immature Granulocyte Absolute 0.03 K/mm3 (0.00-0.031); Immature Granulocyte Percent A 0.5 % (0-0.5); Lymphocytes Absolute Auto 0.94 K/mm3 (0.9-3.2); Mean Corpuscular HGB Conc 32.2 g/dl (32-36); Mean Corpuscular Hemoglobin 31.3 pg (26-34); Mean Corpuscular Volume 97.1 fl (80-100); Mean Platelet Volume 9.1 fl (7.4-10.4); Monocytes Absolute Auto 0.6 K/mm3 (0.1-0.6); Monocytes Percent Auto 9.4 % (2.6-8.5); Neutrophils Absolute Auto 3.6 K/mm3 (1.3-6.7); Neutrophils Percent Auto 60.7 % (45.5-73.1); Platelet Count Result 146 k/mm3 (150-375); Red Blood Count 2.75 M/mm3 (4.6-6.20); White Blood Count 5.9 K/mm3 (4.5-10.0)
[2021-04-17 05:42] LABS: Alanine Aminotransferase 16 U/L (4-50); Albumin Level 3.6 g/dL (3.5-5.1); Alkaline Phosphatase 172 U/L (38-126); Anion Gap 13 mmol/L (8-16); Aspartate Amino Transferase 24 U/L (17-59); Bilirubin,Total 0.5 mg/dL (0.2-1.3); Blood Urea Nitrogen 68 mg/dL (9-20); Calcium 8.7 mg/dL (8.4-10.2); Carbon Dioxide 27 mmol/L (22-30); Chloride 97 mmol/L (98-107); Estimated CRCL calculation 13 ml/min; Estimated Glomerular Filt Rate 8; Glucose 143 mg/dL (65-110); Magnesium 2.2 mg/dL (1.6-2.3); Potassium 4.8 mmol/L (3.4-5.0); Sodium 137 mmol/L (137-145)
[2021-04-17] MEDS: VALPROIC ACID 250 MG CAPSULE PO ×3 (06:05→20:15)
[2021-04-17] MEDS: LEVOTHYROXINE SODIUM 50 MCG TABLET PO (06:05)
[2021-04-17] MEDS: SEVELAMER CARBONATE 800 MG TABLET PO ×3 (09:29→16:56)
[2021-04-17] MEDS: cloNIDine HCL 0.1 MG TABLET 0.3 MG PO (09:29)
[2021-04-17] MEDS: INSULIN ASPART (*BKC) 100 UNITS/ML SUB-Q (09:29)
[2021-04-17] MEDS: BUMETANIDE INJ 2.5 MG/10 ML VIAL 3 MG IV PUSH ×2 (09:30→16:55)
[2021-04-17] MEDS: ENOXAPARIN 30 MG/0.3 ML SYRINGE SUB-Q (09:30)
[2021-04-17] MEDS: CALCIUM ACETATE 667 MG TABLET 1334 MG PO ×3 (09:31→16:56)
[2021-04-17] MEDS: hydrALAZINE HCL 50 MG TABLET 100 MG PO ×3 (09:31→16:56)
[2021-04-17] MEDS: TERAZOSIN HCL 1 MG CAPSULE 2 MG PO (09:31)
[2021-04-17] MEDS: minoxidiL 2.5 MG TABLET PO ×2 (09:31→16:56)
[2021-04-17] MEDS: PANTOPRAZOLE SODIUM IV 40 MG VIAL IV PUSH ×2 (09:31→20:15)
[2021-04-17] MEDS: ESCITALOPRAM OXALATE 10 MG TABLET 20 MG PO (09:32)
[2021-04-17] MEDS: carvediloL 25 MG TABLET PO ×2 (09:32→16:56)
[2021-04-17] MEDS: PHENYTOIN SODIUM 100 MG EXTENDED RELEASE CAP PO ×3 (09:32→16:56)
[2021-04-17] MEDS: LORATADINE/PSEUDOEPHEDRINE (*CRX) 10/240 MG TABLET ER 24 HR 1 TAB PO (10:33)
[2021-04-17] MEDS: ASPIRIN 81 MG CHEWABLE TABLET PO (10:33)
[2021-04-17] MEDS: HYDROcodone/acetaminophen (*CRX) 5-325 MG TABLET 1 TAB PO ×2 (10:34→20:16)
--- NOTE | 2021-04-17 11:30 | PC.NURSE ---
This patient, Ari Zuniga, was transferred to [facility] on 04/17/21 at 1120. Personal belongings sent with patient. Report given to Tenisha DESAI. Appropriate documentation sent with patient.
--- NOTE | 2021-04-17 11:45 | PM.PNNEP ---
Progress Note: A&P Assessment and Plan (1) End-stage renal disease (ESRD): Code(s): N18.6 - End stage renal disease Status: Acute Assessment and Plan: HD tomorrow and continue dialysis 3x/week follow electrolytes, volume status, and clearance continue to push fluid removal as tolerated (2) Fluid overload: Code(s): E87.70 - Fluid overload, unspecified Status: Acute Assessment and Plan: aggressive fluid removal with HD/DUF as tolerated on IV diuretics as well follow respiratory status (3) Hypothermia: Onset Date: ~04/16/21 Qualifiers: Encounter type: initial encounter Qualified Code(s): T68.XXXA - Hypothermia, initial encounter Code(s): T68.XXXA - Hypothermia, initial encounter Status: Acute Assessment and Plan: resolved but etiology unclear follow culture data empirically on antibiotics (4) Hypertension: Qualifiers: Hypertension type: essential hypertension Qualified Code(s): I10 - Essential (primary) hypertension Code(s): I10 - Essential (primary) hypertension Status: Chronic Assessment and Plan: poor control at baseline suspect volume overload status not helping this issue follow trend with aggressive fluid removal changed clonidine to PRN (high risk for rebound HTN given compliance issues) favor titration of terazosin and/or minoxidil follow trend of hemodynamics (5) Anemia: Code(s): D64.9 - Anemia, unspecified Status: Chronic Assessment and Plan: due to ESRD but recent hospitalizations playing a role H/H reading may be partly dilutional as well given fluid overload status Epogen with HD follow trend H/H PRBC transfusion per protocol (6) Type 1 diabetes: Qualifiers: Chronic kidney disease stage: on chronic dialysis Diabetes mellitus complication detail: with chronic kidney disease Diabetes mellitus complication status: with kidney complications Qualified Code(s): E10.22 - Type 1 diabetes mellitus with diabetic chronic kidney disease; N18.6 - End stage renal disease; Z99.2 - Dependence on renal dialysis Code(s): E10.9 - Type 1 diabetes mellitus without complications Status: Chronic Assessment and Plan: etiology of ESRD follow accuchecks - issues with hypoglycemia noted on Lantus and SSI Will continue to follow. Subjective Date/time seen: 04/17/21 11:45 Tolerated dry ultrafiltration treatment yesterday evening with approximately 5L fluid removal; blood pressures doing better; temperature appears to have normalized following dialysis treatment yesterday; s/p PRBC transfusion yesterday as well; no apparent distress voiced on my visit with him today. Exam Narrative: General: WD/WN Caucasain male in NAD Heart: normal S1 and S2; no rub Lungs: coarse with bivasilar crackles Abdomen: soft, nontender, nondistended, positive bowel sounds Extremities: no cyanosis or clubbing; 2+ edema Skin: warm and dry Objective Data Vital Signs Vital Signs: Vital Signs Temp Pulse Resp BP Pulse Ox 04/17/21 09:32 89 04/17/21 08:00 36.8 C 90 14 152/87 H 97 04/17/21 04:00 36.6 C 88 20 135/84 92 04/16/21 23:36 36.4 C 81 16 139/84 97 04/16/21 23:32 36.5 C 83 20 136/72 97 04/16/21 22:45 36.5 C 79 16 121/63 96 04/16/21 22:15 36.4 C 81 16 149/84 H 04/16/21 22:03 82 133/74 04/16/21 21:45 36.5 C 82 18 133/74 96 04/16/21 21:30 81 137/72 04/16/21 21:15 82 143/76 H 04/16/21 21:00 36.4 C 81 147/78 H 04/16/21 20:45 36.5 C 82 16 138/81 97 04/16/21 20:30 36.5 C 82 126/72 04/16/21 20:27 36.4 C L 80 18 156/68 H 96 04/16/21 20:15 80 156/68 H 04/16/21 20:00 36.5 C 80 134/71 04/16/21 19:45 81 129/76 04/16/21 19:30 81 139/74 04/16/21 19:15 81 142/82 H 04/16/21 19:03 80 136/79 04/16/21 18:56 36.4 C L 82 18 145/77 H
--- NOTE | 2021-04-17 11:45 | P.PNNP_ITS ---
Progress Note: A&P Assessment and Plan (1) End-stage renal disease (ESRD): Code(s): N18.6 - End stage renal disease Status: Acute Assessment and Plan: * HD tomorrow and continue dialysis 3x/week * follow electrolytes, volume status, and clearance * continue to push fluid removal as tolerated (2) Fluid overload: Code(s): E87.70 - Fluid overload, unspecified Status: Acute Assessment and Plan: * aggressive fluid removal with HD/DUF as tolerated * on IV diuretics as well * follow respiratory status (3) Hypothermia: Onset Date: ~04/16/21 Qualifiers: Encounter type: initial encounter Qualified Code(s): T68.XXXA - Hypothermia, initial encounter Code(s): T68.XXXA - Hypothermia, initial encounter Status: Acute Assessment and Plan: * resolved but etiology unclear * follow culture data * empirically on antibiotics (4) Hypertension: Qualifiers: Hypertension type: essential hypertension Qualified Code(s): I10 - Essential (primary) hypertension Code(s): I10 - Essential (primary) hypertension Status: Chronic Assessment and Plan: * poor control at baseline * suspect volume overload status not helping this issue * follow trend with aggressive fluid removal * changed clonidine to PRN (high risk for rebound HTN given compliance issues) * favor titration of terazosin and/or minoxidil * follow trend of hemodynamics (5) Anemia: Code(s): D64.9 - Anemia, unspecified Status: Chronic Assessment and Plan: * due to ESRD but recent hospitalizations playing a role * H/H reading may be partly dilutional as well given fluid overload status * Epogen with HD * follow trend H/H * PRBC transfusion per protocol (6) Type 1 diabetes: Qualifiers: Chronic kidney disease stage: on chronic dialysis Diabetes mellitus complication detail: with chronic kidney disease Diabetes mellitus complication status: with kidney complications Qualified Code(s): E10.22 - Type 1 diabetes mellitus with diabetic chronic kidney disease; N18.6 - End stage renal disease; Z99.2 - Dependence on renal dialysis Code(s): E10.9 - Type 1 diabetes mellitus without complications Status: Chronic Assessment and Plan: * etiology of ESRD * follow accuchecks - issues with hypoglycemia noted * on Lantus and SSI Will continue to follow. Subjective Date/time seen: 04/17/21 11:45 Tolerated dry ultrafiltration treatment yesterday evening with approximately 5L fluid removal; blood pressures doing better; temperature appears to have normalized following dialysis treatment yesterday; s/p PRBC transfusion yesterday as well; no apparent distress voiced on my visit with him today. Exam Narrative: General: WD/WN Caucasain male in NAD Heart: normal S1 and S2; no rub Lungs: coarse with bivasilar crackles Abdomen: soft, nontender, nondistended, positive bowel sounds Extremities: no cyanosis or clubbing; 2+ edema Skin: warm and dry Objective Data Vital Signs Vital Signs: Vital Signs Temp Pulse Resp BP Pulse Ox 04/17/21 09:32 89 04/17/21 08:00 36.8 C 90 14 152/87 H 97 04/17/21 04:00 36.6 C 88 20 135/84 92 04/16/21 23:36 36.4 C 81 16 139/84 97 04/16/21 23:32 36.5 C 83 20 136/72 97 04/16/21 22:45 36.5 C 79 16 121/63 96 04/16/21 22:15 36.4
[2021-04-17 12:16] LABS: Glucose Point of Care 169 mg/dl (65-105)
[2021-04-17 12:28] LABS: Glucose Point of Care 134 mg/dl (65-105)
--- NOTE | 2021-04-17 13:48 | PM.IMPN ---
Progress Note: A&P Additional Plan Assessment and Plan (1) Hypothermia: Onset Date: ~04/16/21 Qualifiers: Encounter type: initial encounter Qualified Code(s): T68.XXXA - Hypothermia, initial encounter Code(s): T68.XXXA - Hypothermia, initial encounter Status: Acute Assessment and Plan: - Etiology unknown. - Remainder of VSS. - José Hugger ordered with rectal temperatures. - CBC, CMP, Lactic Acid, Blood Cultures x2 ordered to be drawn in Dialysis this evening. Stat Portable CXR ordered. - Continue to monitor labs and vitals. - Elevated TSH at >8, but preserved T4. This will need to be remotely followed upon discharge. - Now resolved. Pt is normothermic. - Septic workup negative with BCx2 still pending. - Continue Imipenem and Vanc for a few days and review BC. Additional Plan Assessment and Plan (1) Volume overload: Qualifiers: Hypervolemia type: unspecified Qualified Code(s): E87.70 - Fluid overload, unspecified Code(s): E87.70 - Fluid overload, unspecified Status: Acute Assessment and Plan: - Due to the patient missing dialysis and only having a half of the treatment after that. - Talked to the patient's fire equipment inspector who recommended trying IV Bumex 3 mg b.i.d. to help with removing fluid - Continue dialysis at this time in as ordered by the fire equipment inspector - Monitor weight daily - Fluid restriction 1500 cc daily - Strict intake and output - Nephrology covering. - Dialyzed last evening with dry ultrafiltration. Pt. tolerated. (2) End-stage renal disease on hemodialysis: Code(s): N18.6 - End stage renal disease; Z99.2 - Dependence on renal dialysis Status: Acute Assessment and Plan: - Received dialysis Wednesday. - Nephrology is consulted for further evaluation and dialysis orders (3) Uncontrolled hypertension: Code(s): I10 - Essential (primary) hypertension Status: Acute Assessment and Plan: - Poorly controlled likely due to poorly controlled Renal status and incomplete filtering from dialysis. - Continue home medications - P.r.n. hydralazine as needed for systolic greater than 170 or diastolic greater than 100 - Continue monitoring make adjustments if needed. (4) Type 1 diabetes mellitus: Qualifiers: Diabetes mellitus complication status: with kidney complications Diabetes mellitus complication detail: with chronic kidney disease Chronic kidney disease stage: on chronic dialysis Qualified Code(s): E10.22 - Type 1 diabetes mellitus with diabetic chronic kidney disease; N18.6 - End stage renal disease; Z99.2 - Dependence on renal dialysis Code(s): E10.9 - Type 1 diabetes mellitus without complications Status: Acute Assessment and Plan: - Patient is an insulin-dependent diabetic and states his insulin dosing depends on his glucose reading. Normally his Lantus is 15-20 units depending on his glucose reading. He states sliding scale Humalog is 5 units to 20 units depending on his glucose reading. - Continue home dose of Lantus at 15 units. - Scheduled Novolog 4 Units TIDWM + SSI - Continue monitoring glucose a.c. HS. Hypoglycemic protocol in place. Sliding scale insulin ordered. - Pt. with hypoglycemic episode yesterday to 33. Recovered with two doses of 1 amp of 50% Dextrose. Now stable with glucose. We are continuing to monitor. (5) Chronic anemia: Code(s): D64.9 - Anemia, unspecified Status: Acute Assessment and Plan: - H&H is chronically low given his end-stage renal disease and dialysis. - No signs of acute bleeding at this time. - Continue monitoring H&H and if hemoglobin gets below 7 will need transfusion. - Low Hgb yesterday, and received two units of PRBC's. Hgb today is 8.6/
[2021-04-17 16:16] LABS: Glucose Point of Care 88 mg/dl (65-105)
[2021-04-17] MEDS: TERAZOSIN HCL 1 MG CAPSULE 3 MG PO (16:57)
[2021-04-17] MEDS: ATORVASTATIN 40 MG TABLET PO (20:15)
[2021-04-17] MEDS: AMITRIPTYLINE HCL 25 MG TABLET 50 MG PO (20:15)
[2021-04-18] VITALS (21 sets, daily range): BP systolic 123–182; BP diastolic 65–90; PULSE 85–92; RESP 16–20; TEMP 35.7–36.6; O2SAT 95–98
[2021-04-18 03:54] LABS: Glucose Point of Care 99 mg/dl (65-105)
[2021-04-18] MEDS: VALPROIC ACID 250 MG CAPSULE PO ×3 (06:32→21:14)
[2021-04-18] MEDS: LEVOTHYROXINE SODIUM 50 MCG TABLET PO (06:34)
[2021-04-18 07:58] LABS: Basophils Percent Auto 0.7 % (0.2-1.2); Eosinophils Absolute Auto 0.7 K/mm3 (0-0.3); Eosinophils Percent Auto 12.3 % (0-4.4); Hematocrit 27.3 % (42.0-52.0); Hemoglobin 8.8 g/dL (14.0-18.0); Immature Granulocyte Absolute 0.03 K/mm3 (0.00-0.031); Immature Granulocyte Percent A 0.5 % (0-0.5); Lymphocytes Absolute Auto 0.58 K/mm3 (0.9-3.2); Lymphocytes Percent Auto 9.8 % (18.3-44.2); Mean Corpuscular HGB Conc 32.2 g/dl (32-36); Mean Corpuscular Hemoglobin 31.4 pg (26-34); Mean Corpuscular Volume 97.5 fl (80-100); Monocytes Absolute Auto 0.7 K/mm3 (0.1-0.6); Monocytes Percent Auto 12.3 % (2.6-8.5); Neutrophils Absolute Auto 3.8 K/mm3 (1.3-6.7); Neutrophils Percent Auto 64.4 % (45.5-73.1); Platelet Count Result 128 k/mm3 (150-375); Red Cell Distribution Width 16.7 % (11.5-14.5); White Blood Count 5.9 K/mm3 (4.5-10.0)
[2021-04-18 08:10] LABS: Alanine Aminotransferase 16 U/L (4-50); Albumin Level 3.7 g/dL (3.5-5.1); Alkaline Phosphatase 168 U/L (38-126); Anion Gap 14 mmol/L (8-16); Aspartate Amino Transferase 21 U/L (17-59); Bilirubin,Total 0.6 mg/dL (0.2-1.3); Blood Urea Nitrogen 79 mg/dL (9-20); Carbon Dioxide 27 mmol/L (22-30); Chloride 96 mmol/L (98-107); Estimated CRCL calculation 12 ml/min; Estimated Glomerular Filt Rate 7; Glucose 138 mg/dL (65-110); Magnesium 2.3 mg/dL (1.6-2.3); Potassium 4.9 mmol/L (3.4-5.0); Sodium 137 mmol/L (137-145)
[2021-04-18 09:05] LABS: Glucose Point of Care 121 mg/dl (65-105)
[2021-04-18] MEDS: EPOETIN ALFA-EPBX 10,000 UNITS/ML VIAL 20000 UNITS IV PUSH (10:09)
[2021-04-18] MEDS: SODIUM CHLORIDE 0.9% IV 1,000 ML 999 ML IV CONT (10:10)
--- NOTE | 2021-04-18 11:06 | PCOTNOTE ---
Patient unavailable, in dialysis. Will continue OT per plan of care.
--- NOTE | 2021-04-18 11:35 | PM.PNNEP ---
Progress Note: A&P Assessment and Plan (1) End-stage renal disease (ESRD): Code(s): N18.6 - End stage renal disease Status: Acute Assessment and Plan: HD tomorrow and continue dialysis 3x/week follow electrolytes, volume status, and clearance continue to push fluid removal as tolerated (2) Fluid overload: Code(s): E87.70 - Fluid overload, unspecified Status: Acute Assessment and Plan: aggressive fluid removal with HD/DUF as tolerated on IV diuretics as well follow respiratory status (3) Hypothermia: Onset Date: ~04/16/21 Qualifiers: Encounter type: initial encounter Qualified Code(s): T68.XXXA - Hypothermia, initial encounter Code(s): T68.XXXA - Hypothermia, initial encounter Status: Acute Assessment and Plan: resolved - due to bacteremia(?) follow culture data on antibiotics (4) Hypertension: Qualifiers: Hypertension type: essential hypertension Qualified Code(s): I10 - Essential (primary) hypertension Code(s): I10 - Essential (primary) hypertension Status: Chronic Assessment and Plan: poor control at baseline suspect volume overload status not helping this issue follow trend with aggressive fluid removal changed clonidine to PRN (high risk for rebound HTN given compliance issues) favor titration of terazosin and/or minoxidil follow trend of hemodynamics (5) Anemia: Code(s): D64.9 - Anemia, unspecified Status: Chronic Assessment and Plan: due to ESRD but recent hospitalizations playing a role H/H reading may be partly dilutional as well given fluid overload status Epogen with HD follow trend H/H PRBC transfusion per protocol (6) Type 1 diabetes: Qualifiers: Diabetes mellitus complication status: with kidney complications Diabetes mellitus complication detail: with chronic kidney disease Chronic kidney disease stage: on chronic dialysis Qualified Code(s): E10.22 - Type 1 diabetes mellitus with diabetic chronic kidney disease; N18.6 - End stage renal disease; Z99.2 - Dependence on renal dialysis Code(s): E10.9 - Type 1 diabetes mellitus without complications Status: Chronic Assessment and Plan: etiology of ESRD follow accuchecks on Lantus and SSI Will continue to follow. Subjective Date/time seen: 04/18/21 11:35 Patient tolerating hemodialysis/DUF treatment at the time of my visit (seen on HD at ~ 11:25AM); overall, seems to be doing better; stable hemodynamics and no further hypothermia; + blood cultures noted and remains on antibiotics as this time. Exam Narrative: General: WD/WN Caucasain male in NAD Heart: normal S1 and S2; no rub Lungs: decreased breath sounds at the bases Abdomen: soft, nontender, nondistended, positive bowel sounds Extremities: no cyanosis or clubbing; 1+ edema Skin: warm and intact Objective Data Vital Signs Vital Signs: Vital Signs Temp Pulse Resp BP Pulse Ox 04/18/21 11:15 88 139/70 04/18/21 10:55 88 130/66 04/18/21 10:35 87 135/65 04/18/21 10:15 87 126/66 04/18/21 09:55 88 136/71 04/18/21 09:35 88 123/70 04/18/21 09:15 88 152/79 H 04/18/21 08:55 90 156/83 H 04/18/21 08:35 85 166/88 H 04/18/21 08:16 85 170/90 H 04/18/21 08:08 86 04/18/21 08:05 36.6 C 86 18 182/86 H 04/18/21 07:23 85 18 95 04/18/21 05:43 36.2 C L 85 18 159/83 H 95 04/17/21 22:00 36.3 C L 89 20 135/76 90 04/17/21 21:52 88 93 04/17/21 20:00 90 04/17/21 16:56 80 04/17/21 14:01 36.7 C 81 15 128/71 93 Intake/Output Intake/Output: Intake & Output 04/15/21 04/16/21 04/17/21 04/18/21 23:59 23:59 23:59 23:59 Intake Total 1210 1780 1170 200 Output Total 5250 5000 0 Balance -4040 -3220 1170 200 Meds/Results Medications: Active Medications Generic Name Dose Route Start Last Admin
--- NOTE | 2021-04-18 11:35 | P.PNNP_ITS ---
Progress Note: A&P Assessment and Plan (1) End-stage renal disease (ESRD): Code(s): N18.6 - End stage renal disease Status: Acute Assessment and Plan: * HD tomorrow and continue dialysis 3x/week * follow electrolytes, volume status, and clearance * continue to push fluid removal as tolerated (2) Fluid overload: Code(s): E87.70 - Fluid overload, unspecified Status: Acute Assessment and Plan: * aggressive fluid removal with HD/DUF as tolerated * on IV diuretics as well * follow respiratory status (3) Hypothermia: Onset Date: ~04/16/21 Qualifiers: Encounter type: initial encounter Qualified Code(s): T68.XXXA - Hypothermia, initial encounter Code(s): T68.XXXA - Hypothermia, initial encounter Status: Acute Assessment and Plan: * resolved - due to bacteremia(?) * follow culture data * on antibiotics (4) Hypertension: Qualifiers: Hypertension type: essential hypertension Qualified Code(s): I10 - Essential (primary) hypertension Code(s): I10 - Essential (primary) hypertension Status: Chronic Assessment and Plan: * poor control at baseline * suspect volume overload status not helping this issue * follow trend with aggressive fluid removal * changed clonidine to PRN (high risk for rebound HTN given compliance issues) * favor titration of terazosin and/or minoxidil * follow trend of hemodynamics (5) Anemia: Code(s): D64.9 - Anemia, unspecified Status: Chronic Assessment and Plan: * due to ESRD but recent hospitalizations playing a role * H/H reading may be partly dilutional as well given fluid overload status * Epogen with HD * follow trend H/H * PRBC transfusion per protocol (6) Type 1 diabetes: Qualifiers: Diabetes mellitus complication status: with kidney complications Diabetes mellitus complication detail: with chronic kidney disease Chronic kidney disease stage: on chronic dialysis Qualified Code(s): E10.22 - Type 1 diabetes mellitus with diabetic chronic kidney disease; N18.6 - End stage renal disease; Z99.2 - Dependence on renal dialysis Code(s): E10.9 - Type 1 diabetes mellitus without complications Status: Chronic Assessment and Plan: * etiology of ESRD * follow accuchecks * on Lantus and SSI Will continue to follow. Subjective Date/time seen: 04/18/21 11:35 Patient tolerating hemodialysis/DUF treatment at the time of my visit (seen on HD at ~ 11:25AM); overall, seems to be doing better; stable hemodynamics and no further hypothermia; + blood cultures noted and remains on antibiotics as this time. Exam Narrative: General: WD/WN Caucasain male in NAD Heart: normal S1 and S2; no rub Lungs: decreased breath sounds at the bases Abdomen: soft, nontender, nondistended, positive bowel sounds Extremities: no cyanosis or clubbing; 1+ edema Skin: warm and intact Objective Data Vital Signs Vital Signs: Vital Signs Temp Pulse Resp BP Pulse Ox 04/18/21 11:15 88 139/70 04/18/21 10:55 88 130/66 04/18/21 10:35 87 135/65 04/18/21 10:15 87 126/66 04/18/21 09:55 88 136/71 04/18/21 09:35 88 123/70 04/18/21 09:15 88 152/79 H 04/18/21 08:55 90 156/83 H 04/18/21 08:35 85 166/88 H 04/18/21 08:16 85 170/90
--- NOTE | 2021-04-18 11:38 | PM.IMPN ---
Progress Note: A&P Assessment and Plan (1) Bacteremia: Onset Date: ~04/16/21 Code(s): R78.81 - Bacteremia Status: Acute Assessment and Plan: - Initially symptomatic with hypothermia. - Pt. with improved status after starting Imipenem and Vancomycin. - Initial septic workup without abnormal findings. - Awaiting results of Sensitivity.from the anaerobic bottle that grew out of Gram +cocci. - Pt. currently stable and without any signs of sepsis. Additional Plan Additional Plan Assessment and Plan (2) Hypothermia: Onset Date: ~04/16/21 Qualifiers: Encounter type: initial encounter Qualified Code(s): T68.XXXA - Hypothermia, initial encounter Code(s): T68.XXXA - Hypothermia, initial encounter Status: Acute Assessment and Plan: - Etiology initially unknown now patient is known to be bacteremic. - Remainder of VSS. - Pt is now normothermic. - Bacteremic of Gram +Cocci in clusters. Susceptibility pending. - Continue to monitor labs and vitals. - Elevated TSH at >8, but preserved T4. This will need to be remotely followed upon discharge. - Now resolved. Pt is normothermic. - Septic workup with positive blood cultures in the anaerobic bottles of Gram +Cocci in clusters. - Continue Imipenem and Vanc until Susceptibility reports. Additional Plan Assessment and Plan (3) Volume overload: Qualifiers: Hypervolemia type: unspecified Qualified Code(s): E87.70 - Fluid overload, unspecified Code(s): E87.70 - Fluid overload, unspecified Status: Acute Assessment and Plan: - Initially due to the patient missing dialysis, now appears euvolemic and no difficulty breathing. Neprology is seeing patient and will continue to follow and order dialysis while pt. is here. - Monitor weight daily - Fluid restriction 1500 cc daily - Strict intake and output - Nephrology covering. (4) End-stage renal disease on hemodialysis: Code(s): N18.6 - End stage renal disease; Z99.2 - Dependence on renal dialysis Status: Acute Assessment and Plan: - Receives dialysis Wednesday. - Nephrology is consulted for further evaluation and dialysis orders (5) Uncontrolled hypertension: Code(s): I10 - Essential (primary) hypertension Status: Acute Assessment and Plan: - Poorly controlled likely due to poorly controlled Renal status. - Continue home medications - P.r.n. hydralazine as needed for systolic greater than 170 or diastolic greater than 100 - Continue monitoring make adjustments if needed. (6) Type 1 diabetes mellitus: Qualifiers: Diabetes mellitus complication status: with kidney complications Diabetes mellitus complication detail: with chronic kidney disease Chronic kidney disease stage: on chronic dialysis Qualified Code(s): E10.22 - Type 1 diabetes mellitus with diabetic chronic kidney disease; N18.6 - End stage renal disease; Z99.2 - Dependence on renal dialysis Code(s): E10.9 - Type 1 diabetes mellitus without complications Status: Acute Assessment and Plan: - Patient is an insulin-dependent diabetic and states his insulin dosing depends on his glucose reading. Normally his Lantus is 15-20 units depending on his glucose reading. He states sliding scale Humalog is 5 units to 20 units depending on his glucose reading. - Continue home dose of Lantus at 15 units. - Scheduled Novolog 4 Units TIDWM + SSI - Continue monitoring glucose a.c. HS. Hypoglycemic protocol in place. Sliding scale insulin ordered. - Pt. with two hypoglycemic episodes during this hospitalization. Has remained stable now. (7) Chronic anemia: Code(s): D64.9 - Anemia, unspecified Status: Acute Assessment and Plan: - H&H is c
[2021-04-18 12:02] LABS: Glucose Point of Care 117 mg/dl (65-105)
--- NOTE | 2021-04-18 12:28 | PC.NURSE ---
4L removed from pt this shift during dialysis.
[2021-04-18] MEDS: HYDROcodone/acetaminophen (*CRX) 5-325 MG TABLET 1 TAB PO ×2 (13:15→17:23)
[2021-04-18] MEDS: hydrALAZINE HCL 50 MG TABLET 100 MG PO ×2 (13:16→17:23)
[2021-04-18] MEDS: SEVELAMER CARBONATE 800 MG TABLET PO ×2 (13:16→17:23)
[2021-04-18] MEDS: CALCIUM ACETATE 667 MG TABLET 1334 MG PO ×2 (13:16→17:22)
[2021-04-18] MEDS: PHENYTOIN SODIUM 100 MG EXTENDED RELEASE CAP PO ×2 (13:41→17:23)
--- NOTE | 2021-04-18 15:05 | PC.NURSE ---
Gave report to Lucy director at [facility], director await pt will need to return to cardiology office Wednesday for Holter monitor placement. Pt to leave via cab.
[2021-04-18 16:55] LABS: Glucose Point of Care 171 mg/dl (65-105)
[2021-04-18] MEDS: BUMETANIDE INJ 2.5 MG/10 ML VIAL 3 MG IV PUSH (17:22)
[2021-04-18 17:23] LABS: Alanine Aminotransferase 16 U/L (4-50); Albumin Level 3.6 g/dL (3.5-5.1); Alkaline Phosphatase 179 U/L (38-126); Anion Gap 9 mmol/L (8-16); Aspartate Amino Transferase 21 U/L (17-59); Bilirubin,Total 0.6 mg/dL (0.2-1.3); Blood Urea Nitrogen 47 mg/dL (9-20); Calcium 9.1 mg/dL (8.4-10.2); Carbon Dioxide 28 mmol/L (22-30); Chloride 101 mmol/L (98-107); Estimated CRCL calculation 16 ml/min; Estimated Glomerular Filt Rate 10; Glucose 167 mg/dL (65-110); Potassium 4.1 mmol/L (3.4-5.0); Sodium 138 mmol/L (137-145)
[2021-04-18] MEDS: minoxidiL 2.5 MG TABLET PO (17:23)
[2021-04-18] MEDS: TERAZOSIN HCL 1 MG CAPSULE 3 MG PO (17:23)
[2021-04-18] MEDS: levETIRAcetam 500 MG TABLET PO (17:23)
[2021-04-18] MEDS: INSULIN ASPART (*BKC) 100 UNITS/ML SUB-Q (17:25)
[2021-04-18] MEDS: carvediloL 25 MG TABLET PO (17:25)
[2021-04-18 17:43] LABS: Basophils Absolute Auto 0.1 K/mm3 (0.0-0.1); Basophils Percent Auto 0.8 % (0.2-1.2); Eosinophils Absolute Auto 0.6 K/mm3 (0-0.3); Eosinophils Percent Auto 10.6 % (0-4.4); Hematocrit 28.3 % (42.0-52.0); Hemoglobin 9.2 g/dL (14.0-18.0); Immature Granulocyte Absolute 0.03 K/mm3 (0.00-0.031); Immature Granulocyte Percent A 0.5 % (0-0.5); Lymphocytes Absolute Auto 0.58 K/mm3 (0.9-3.2); Lymphocytes Percent Auto 9.8 % (18.3-44.2); Mean Corpuscular HGB Conc 32.5 g/dl (32-36); Mean Corpuscular Hemoglobin 31.6 pg (26-34); Mean Corpuscular Volume 97.3 fl (80-100); Mean Platelet Volume 9.7 fl (7.4-10.4); Monocytes Absolute Auto 0.7 K/mm3 (0.1-0.6); Monocytes Percent Auto 11.6 % (2.6-8.5); Neutrophils Percent Auto 66.7 % (45.5-73.1); Platelet Count Result 144 k/mm3 (150-375); Red Blood Count 2.91 M/mm3 (4.6-6.20); Red Cell Distribution Width 16.7 % (11.5-14.5); White Blood Count 5.9 K/mm3 (4.5-10.0)
--- NOTE | 2021-04-18 18:07 | PC.NURSE ---
Random vancomycin trough draw awaiting result for pharmacy to dose vancomycin.
[2021-04-18 19:51] LABS: Vancomycin Random < 5.0 ug/mL (10-20)
[2021-04-18] MEDS: ATORVASTATIN 40 MG TABLET PO (20:15)
[2021-04-18] MEDS: PANTOPRAZOLE SODIUM IV 40 MG VIAL IV PUSH (20:15)
[2021-04-18] MEDS: AMITRIPTYLINE HCL 25 MG TABLET 50 MG PO (20:16)
[2021-04-18] MEDS: fentaNYL CITRATE INJ (*CRX) 100 MCG/2 ML VIAL 25 MCG IV PUSH (21:11)
[2021-04-18 21:50] LABS: Glucose Point of Care 223 mg/dl (65-105)
[2021-04-19] VITALS (21 sets, daily range): BP systolic 116–168; BP diastolic 51–92; PULSE 78–92; RESP 16–20; TEMP 35.3–36.6; O2SAT 92–100
[2021-04-19] MEDS: HYDROcodone/acetaminophen (*CRX) 5-325 MG TABLET 1 TAB PO ×4 (04:04→20:06)
[2021-04-19] MEDS: LEVOTHYROXINE SODIUM 50 MCG TABLET PO (05:31)
[2021-04-19] MEDS: VALPROIC ACID 250 MG CAPSULE PO ×3 (05:31→21:07)
[2021-04-19 07:57] LABS: Glucose Point of Care 377 mg/dl (65-105)
[2021-04-19] MEDS: INSULIN ASPART (*BKC) 100 UNITS/ML SUB-Q ×4 (08:32→13:41)
[2021-04-19] MEDS: SEVELAMER CARBONATE 800 MG TABLET PO ×3 (08:34→17:59)
[2021-04-19] MEDS: hydrALAZINE HCL 50 MG TABLET 100 MG PO ×3 (08:34→17:57)
[2021-04-19] MEDS: PHENYTOIN SODIUM 100 MG EXTENDED RELEASE CAP PO ×3 (08:34→17:58)
[2021-04-19] MEDS: carvediloL 25 MG TABLET PO ×2 (08:34→17:57)
[2021-04-19] MEDS: TERAZOSIN HCL 1 MG CAPSULE 3 MG PO ×2 (08:35→17:59)
[2021-04-19] MEDS: CALCIUM ACETATE 667 MG TABLET 1334 MG PO ×3 (08:35→17:57)
[2021-04-19] MEDS: BUMETANIDE INJ 2.5 MG/10 ML VIAL 3 MG IV PUSH (08:36)
[2021-04-19] MEDS: ASPIRIN 81 MG CHEWABLE TABLET PO (08:36)
[2021-04-19] MEDS: ENOXAPARIN 30 MG/0.3 ML SYRINGE SUB-Q (08:37)
[2021-04-19] MEDS: ESCITALOPRAM OXALATE 10 MG TABLET 20 MG PO (08:37)
[2021-04-19] MEDS: PANTOPRAZOLE SODIUM IV 40 MG VIAL IV PUSH ×2 (08:38→20:07)
[2021-04-19] MEDS: minoxidiL 2.5 MG TABLET PO ×2 (08:38→17:58)
[2021-04-19] MEDS: EPOETIN ALFA-EPBX 10,000 UNITS/ML VIAL 10000 UNITS IV PUSH (10:38)
[2021-04-19] MEDS: SODIUM CHLORIDE 0.9% IV 1,000 ML 999 ML IV CONT (10:39)
--- NOTE | 2021-04-19 11:24 | PM.IMPN ---
Progress Note: A&P Assessment and Plan (1) Left shoulder pain: Code(s): M25.512 - Pain in left shoulder Status: Chronic Assessment and Plan: - Pt. states from acute injury at home previously and no other complaints of pain. Movement makes it worse. Negative physical assessment. - Pt. asks for his Dilaudid back saying it was the only thing that touched his pain. It is not ordered to be restarted as pt. had become very somnolent with it. - Advised I would try a muscle relaxer and pt. is agreeable. - Robaxin 500 mg 4 times daily prn for pain ordered. Additional Plan Assessment and Plan (1) Bacteremia: Onset Date: ~04/16/21 Code(s): R78.81 - Bacteremia Status: Acute Assessment and Plan: - Initially symptomatic with hypothermia. - Pt. with improved status after starting Imipenem and Vancomycin. - Initial septic workup without abnormal findings. - Awaiting results of ID and Sensitivity from the anaerobic bottle that grew out of Gram +cocci. - Pt. currently stable and without any signs of sepsis. (2) Hypothermia: Onset Date: ~04/16/21 Qualifiers: Encounter type: initial encounter Qualified Code(s): T68.XXXA - Hypothermia, initial encounter Code(s): T68.XXXA - Hypothermia, initial encounter Status: Acute Assessment and Plan: - Etiology initially unknown now patient is known to be bacteremic. - Remainder of VSS. - Pt is now normothermic. - Bacteremic of Gram +Cocci in clusters. Susceptibility pending. - Continue to monitor labs and vitals. - Elevated TSH at >8, but preserved T4. This will need to be remotely followed upon discharge. - Now resolved. Pt is normothermic. - Septic workup with positive blood cultures in the anaerobic bottles of Gram +Cocci in clusters. - Continue Imipenem and Vanc until Susceptibility reports. (3) Volume overload: Qualifiers: Hypervolemia type: unspecified Qualified Code(s): E87.70 - Fluid overload, unspecified Code(s): E87.70 - Fluid overload, unspecified Status: Acute Assessment and Plan: - Initially due to the patient missing dialysis, now appears euvolemic and no difficulty breathing. Nephrology is seeing patient and will continue to follow and order dialysis while pt. is here. - Monitor weight daily - Fluid restriction 1500 cc daily - Strict intake and output - Nephrology covering. (4) End-stage renal disease on hemodialysis: Code(s): N18.6 - End stage renal disease; Z99.2 - Dependence on renal dialysis Status: Acute Assessment and Plan: - Receives dialysis Wednesday. - Nephrology is consulted for further evaluation and dialysis orders (5) Uncontrolled hypertension: Code(s): I10 - Essential (primary) hypertension Status: Acute Assessment and Plan: - Poorly controlled likely due to poorly controlled Renal status. - Continue home medications - P.r.n. hydralazine as needed for systolic greater than 170 or diastolic greater than 100 - Continue monitoring make adjustments if needed. (6) Type 1 diabetes mellitus: Qualifiers: Diabetes mellitus complication status: with kidney complications Diabetes mellitus complication detail: with chronic kidney disease Chronic kidney disease stage: on chronic dialysis Qualified Code(s): E10.22 - Type 1 diabetes mellitus with diabetic chronic kidney disease; N18.6 - End stage renal disease; Z99.2 - Dependence on renal dialysis Code(s): E10.9 - Type 1 diabetes mellitus without complications Status: Acute Assessment and Plan: - Patient is an insulin-dependent diabetic and states his insulin dosing depends on his glucose reading. Normally his Lantus is 15-20 units depending on his glucose reading. He states sliding scale Humalog is 5 units to 20
[2021-04-19 11:31] LABS: Glucose Point of Care 211 mg/dl (65-105)
[2021-04-19] MEDS: methocarbamoL 500 MG TABLET PO (12:30)
--- NOTE | 2021-04-19 12:40 | P.PNNP_ITS ---
Progress Note: A&P Assessment and Plan (1) End-stage renal disease (ESRD): Code(s): N18.6 - End stage renal disease Status: Acute Assessment and Plan: * HD yesterday and continue dialysis 3x/week (M/W/F) * follow electrolytes, volume status, and clearance * continue to push fluid removal as tolerated (2) Fluid overload: Code(s): E87.70 - Fluid overload, unspecified Status: Acute Assessment and Plan: * aggressive fluid removal with HD/DUF as tolerated * HD/DUF today * switch diuretics to oral * follow respiratory status (3) Hypothermia: Onset Date: ~04/16/21 Qualifiers: Encounter type: initial encounter Qualified Code(s): T68.XXXA - Hypothermia, initial encounter Code(s): T68.XXXA - Hypothermia, initial encounter Status: Acute Assessment and Plan: * resolved - due to bacteremia(?) * follow culture data -- contamination versus real? * on antibiotics (4) Hypertension: Qualifiers: Hypertension type: essential hypertension Qualified Code(s): I10 - Essential (primary) hypertension Code(s): I10 - Essential (primary) hypertension Status: Chronic Assessment and Plan: * poor control at baseline * suspect volume overload status not helping this issue * follow trend with aggressive fluid removal * changed clonidine to PRN (high risk for rebound HTN given compliance issues) * favor titration of terazosin and/or minoxidil * follow trend of hemodynamics (5) Anemia: Code(s): D64.9 - Anemia, unspecified Status: Chronic Assessment and Plan: * due to ESRD but recent hospitalizations playing a role * H/H reading may be partly dilutional as well given fluid overload status * Epogen with HD * follow trend H/H * PRBC transfusion per protocol (6) Type 1 diabetes: Qualifiers: Chronic kidney disease stage: on chronic dialysis Diabetes mellitus complication detail: with chronic kidney disease Diabetes mellitus complication status: with kidney complications Qualified Code(s): E10.22 - Type 1 diabetes mellitus with diabetic chronic kidney disease; N18.6 - End stage renal disease; Z99.2 - Dependence on renal dialysis Code(s): E10.9 - Type 1 diabetes mellitus without complications Status: Chronic Assessment and Plan: * etiology of ESRD * follow accuchecks * on Lantus and SSI Will continue to follow. Subjective Date/time seen: 04/19/21 12:40 Tolerating hemodialysis/DUF treatment at the time of my visit (seen on HD at 12:30PM); breathing/respiratory status/edema seems to be slowly improving if not back to baseline; no apparent distress voiced; better hemodynamics and temperature curve in the last 24 - 48 hours. Exam Narrative: General: WD/WN male in NAD Heart: normal S1 and S2; no rub Lungs: decreased breath sounds at the bases Abdomen: soft, nontender, nondistended, positive bowel sounds Extremities: no cyanosis or clubbing; trace edema Skin: no rash Objective Data Vital Signs Vital Signs: Vital Signs Temp Pulse Resp BP Pulse Ox 04/19/21 12:30 87 122/68 04/19/21 12:10 89 129/51 L 04/19/21 11:50 91 116/63 04/19/21 11:30 92 118/60 04/19/21 11:10 92 138/56 L 04/19/21 10:50 92 136/62 04/19/21 10:30 89 157/69 H 04/19/21 10:11 90 141/64 H
--- NOTE | 2021-04-19 12:40 | PM.PNNEP ---
Progress Note: A&P Assessment and Plan (1) End-stage renal disease (ESRD): Code(s): N18.6 - End stage renal disease Status: Acute Assessment and Plan: HD yesterday and continue dialysis 3x/week (M/W/F) follow electrolytes, volume status, and clearance continue to push fluid removal as tolerated (2) Fluid overload: Code(s): E87.70 - Fluid overload, unspecified Status: Acute Assessment and Plan: aggressive fluid removal with HD/DUF as tolerated HD/DUF today switch diuretics to oral follow respiratory status (3) Hypothermia: Onset Date: ~04/16/21 Qualifiers: Encounter type: initial encounter Qualified Code(s): T68.XXXA - Hypothermia, initial encounter Code(s): T68.XXXA - Hypothermia, initial encounter Status: Acute Assessment and Plan: resolved - due to bacteremia(?) follow culture data -- contamination versus real? on antibiotics (4) Hypertension: Qualifiers: Hypertension type: essential hypertension Qualified Code(s): I10 - Essential (primary) hypertension Code(s): I10 - Essential (primary) hypertension Status: Chronic Assessment and Plan: poor control at baseline suspect volume overload status not helping this issue follow trend with aggressive fluid removal changed clonidine to PRN (high risk for rebound HTN given compliance issues) favor titration of terazosin and/or minoxidil follow trend of hemodynamics (5) Anemia: Code(s): D64.9 - Anemia, unspecified Status: Chronic Assessment and Plan: due to ESRD but recent hospitalizations playing a role H/H reading may be partly dilutional as well given fluid overload status Epogen with HD follow trend H/H PRBC transfusion per protocol (6) Type 1 diabetes: Qualifiers: Chronic kidney disease stage: on chronic dialysis Diabetes mellitus complication detail: with chronic kidney disease Diabetes mellitus complication status: with kidney complications Qualified Code(s): E10.22 - Type 1 diabetes mellitus with diabetic chronic kidney disease; N18.6 - End stage renal disease; Z99.2 - Dependence on renal dialysis Code(s): E10.9 - Type 1 diabetes mellitus without complications Status: Chronic Assessment and Plan: etiology of ESRD follow accuchecks on Lantus and SSI Will continue to follow. Subjective Date/time seen: 04/19/21 12:40 Tolerating hemodialysis/DUF treatment at the time of my visit (seen on HD at 12:30PM); breathing/respiratory status/edema seems to be slowly improving if not back to baseline; no apparent distress voiced; better hemodynamics and temperature curve in the last 24 - 48 hours. Exam Narrative: General: WD/WN male in NAD Heart: normal S1 and S2; no rub Lungs: decreased breath sounds at the bases Abdomen: soft, nontender, nondistended, positive bowel sounds Extremities: no cyanosis or clubbing; trace edema Skin: no rash Objective Data Vital Signs Vital Signs: Vital Signs Temp Pulse Resp BP Pulse Ox 04/19/21 12:30 87 122/68 04/19/21 12:10 89 129/51 L 04/19/21 11:50 91 116/63 04/19/21 11:30 92 118/60 04/19/21 11:10 92 138/56 L 04/19/21 10:50 92 136/62 04/19/21 10:30 89 157/69 H 04/19/21 10:11 90 141/64 H 04/19/21 10:00 36.5 C 90 16 159/82 H 04/19/21 08:55 93 04/19/21 08:34 88 04/19/21 08:00 93 04/19/21 06:00 36.2 C L 88 20 168/92 H 98 04/18/21 21:58 36.4 C L 92 20 160/81 H 97 04/18/21 20:00 98 04/18/21 17:25 90 Intake/Output Intake/Output: Intake & Output 04/16/21 04/17/21 04/18/21 04/19/21 23:59 23:59 23:59 23:59 Intake Total 1780 1170 1460 970 Output Total 5000 0 5000 4000 Balance -[phone] -[phone] -7592 Meds/Results Medications: Active Medications Generic Name Dose Route Start Last Admin Trade Name Catarinodino Torres
[2021-04-19] MEDS: LORATADINE/PSEUDOEPHEDRINE (*CRX) 10/240 MG TABLET ER 24 HR 1 TAB PO (13:42)
[2021-04-19] MEDS: HEPARIN SODIUM 5,000 UNITS/ML VIAL 5000 UNITS SUB-Q ×2 (13:43→21:07)
[2021-04-19 16:37] LABS: Basophils Absolute Auto 0.1 K/mm3 (0.0-0.1); Basophils Percent Auto 0.8 % (0.2-1.2); Eosinophils Absolute Auto 0.7 K/mm3 (0-0.3); Eosinophils Percent Auto 11.2 % (0-4.4); Hematocrit 31.4 % (42.0-52.0); Hemoglobin 10.1 g/dL (14.0-18.0); Immature Granulocyte Absolute 0.08 K/mm3 (0.00-0.031); Immature Granulocyte Percent A 1.2 % (0-0.5); Lymphocytes Absolute Auto 0.72 K/mm3 (0.9-3.2); Lymphocytes Percent Auto 11.1 % (18.3-44.2); Mean Corpuscular HGB Conc 32.2 g/dl (32-36); Mean Corpuscular Hemoglobin 31.5 pg (26-34); Mean Corpuscular Volume 97.8 fl (80-100); Mean Platelet Volume 9.2 fl (7.4-10.4); Monocytes Percent Auto 15.2 % (2.6-8.5); Neutrophils Absolute Auto 3.9 K/mm3 (1.3-6.7); Neutrophils Percent Auto 60.5 % (45.5-73.1); Nucleated Red Blood Cells Perc 0.3 % (0.0-0.2); Platelet Count Result 165 k/mm3 (150-375); Red Blood Count 3.21 M/mm3 (4.6-6.20); Red Cell Distribution Width 16.7 % (11.5-14.5); White Blood Count 6.5 K/mm3 (4.5-10.0)
[2021-04-19 16:44] LABS: Alanine Aminotransferase 15 U/L (4-50); Alkaline Phosphatase 177 U/L (38-126); Anion Gap 10 mmol/L (8-16); Aspartate Amino Transferase 21 U/L (17-59); Bilirubin,Total 0.6 mg/dL (0.2-1.3); Blood Urea Nitrogen 43 mg/dL (9-20); Calcium 9.4 mg/dL (8.4-10.2); Carbon Dioxide 28 mmol/L (22-30); Chloride 102 mmol/L (98-107); Estimated CRCL calculation 18 ml/min; Estimated Glomerular Filt Rate 11; Glucose 76 mg/dL (65-110); Potassium 4.1 mmol/L (3.4-5.0); Sodium 140 mmol/L (137-145)
[2021-04-19 17:08] LABS: Glucose Point of Care 69 mg/dl (65-105)
[2021-04-19] MEDS: AMITRIPTYLINE HCL 25 MG TABLET 50 MG PO (20:06)
[2021-04-19] MEDS: ATORVASTATIN 40 MG TABLET PO (20:06)
[2021-04-19 21:50] LABS: Glucose Point of Care 129 mg/dl (65-105)
[2021-04-19 22:55] LABS: Vancomycin Random 13.2 ug/mL (10-20)
[2021-04-20] MEDS: HYDROcodone/acetaminophen (*CRX) 5-325 MG TABLET 1 TAB PO (02:03)
[2021-04-20] MEDS: HEPARIN SODIUM 5,000 UNITS/ML VIAL 5000 UNITS SUB-Q ×2 (05:30→14:50)
[2021-04-20] MEDS: LEVOTHYROXINE SODIUM 50 MCG TABLET PO (05:30)
[2021-04-20] MEDS: VALPROIC ACID 250 MG CAPSULE PO ×2 (05:30→14:50)
[2021-04-20 05:33] VITALS: BP 164/88; PULSE 93; RESP 18; TEMP 36.8; O2SAT 99
[2021-04-20 08:00] VITALS: O2SAT 99
[2021-04-20 09:34] LABS: Glucose Point of Care 172 mg/dl (65-105)
--- NOTE | 2021-04-20 10:00 | PM.DS ---
DS: Admitting Diagnosis Discharge Date 04/20/2021 Admitting Diagnosis Fluid Overload, Chronic end stage renal failure on hemodialysis, Pleural Effusion DS: Discharge Diagnosis Discharge Diagnosis (1) Bacteremia: Onset Date: ~04/16/21 Code(s): R78.81 - Bacteremia Status: Acute Assessment and Plan: - Pt's blood culture, anerobic only grew out Staph Epidermis, sensitive to Doxycycline which would not need to be renally dosed, 100 mg BID for 10 days. - He has received five days of Vancomycin and Imipenem. - Does not currently meet any SIRS/Sepsis criteria and has no sign of systemic infection. - Hypothermia resolved. (2) Fluid overload: Onset Date: ~04/14/21 Qualifiers: Hypervolemia type: other Qualified Code(s): E87.79 - Other fluid overload Code(s): E87.70 - Fluid overload, unspecified Status: Acute Assessment and Plan: - Secondary to missing dialysis - Dialysis was administered as inpatient here managed by Dr. Carmichael. - Normal dialysis schedule days are , to resume normal schedule upon discharge. - Pt. currently appears Euvolemic. (3) End-stage renal disease (ESRD): Onset Date: Unknown Code(s): N18.6 - End stage renal disease Status: Chronic Assessment and Plan: - Continue regular dialysis schedule, . (4) Type 1 diabetes mellitus: Onset Date: Unknown Qualifiers: Diabetes mellitus complication status: with kidney complications Diabetes mellitus complication detail: with chronic kidney disease Chronic kidney disease stage: on chronic dialysis Qualified Code(s): E10.22 - Type 1 diabetes mellitus with diabetic chronic kidney disease; N18.6 - End stage renal disease; Z99.2 - Dependence on renal dialysis Code(s): E10.9 - Type 1 diabetes mellitus without complications Status: Chronic Assessment and Plan: - Continue home insulin dosing of Lantus 15 units SC HS - Continue home insulin with sliding scale. - Further management per patient's own physician. (5) Uncontrolled hypertension: Onset Date: Unknown Code(s): I10 - Essential (primary) hypertension Status: Chronic Assessment and Plan: - Stable currently. Continue home medications of Carvedilol, Clonidine, Furosemide, Hydralazine, Terazosin (6) Anemia: Onset Date: Unknown Qualifiers: Anemia type: due to chronic kidney disease Chronic kidney disease stage: on chronic dialysis Qualified Code(s): N18.6 - End stage renal disease; D63.1 - Anemia in chronic kidney disease; Z99.2 - Dependence on renal dialysis Code(s): D64.9 - Anemia, unspecified Status: Chronic Assessment and Plan: - Continue Epogen with dialysis. - Follow with PCP for further management of Hgb. (7) Elevated troponin: Onset Date: ~04/14/21 Code(s): R77.8 - Other specified abnormalities of plasma proteins Status: Chronic Assessment and Plan: - Secondary to renal failure DS: Summary Hospital Course Hospital Course: This 40 year old male patient with significant PMH of Type 1 DM, HTN, Chronic anemia, ESRD on HD, asthma, Renal osteodystrophy, Seizure disorder, presented to the ER on 04/14/2021 after having missed a dialysis session and having only half of another one due to the severe weather. He reported that he felt like he was in fluid overload. He presented with increased edema in his legs up to the abdominal wall, in addition he was increasingly dyspneic. He is 8 weeks status post left hip ORIF from a fracture due to fall. Pt. was hypertensive in ED, and his creatinine and BUN were 7.80/85 respectively. He did not show any signs of Sepsis at initial presentation. He was admitted to the hospital for dialysis and management of his concurrent conditions. While here he received HD and had the fluid gradually removed. On 04/16/2021, the pt. became hypothermic with a rectal temperature being 94. He was star
[2021-04-20 11:04] VITALS: PULSE 90
[2021-04-20] MEDS: CALCIUM ACETATE 667 MG TABLET 1334 MG PO (11:04)
[2021-04-20] MEDS: carvediloL 25 MG TABLET PO (11:04)
[2021-04-20] MEDS: minoxidiL 2.5 MG TABLET PO (11:05)
[2021-04-20] MEDS: ASPIRIN 81 MG CHEWABLE TABLET PO (11:05)
[2021-04-20] MEDS: SEVELAMER CARBONATE 800 MG TABLET PO (11:05)
[2021-04-20] MEDS: hydrALAZINE HCL 50 MG TABLET 100 MG PO ×2 (11:05→14:50)
[2021-04-20] MEDS: TERAZOSIN HCL 1 MG CAPSULE 3 MG PO (11:06)
[2021-04-20] MEDS: PHENYTOIN SODIUM 100 MG EXTENDED RELEASE CAP PO ×2 (11:06→14:50)
[2021-04-20] MEDS: PANTOPRAZOLE SODIUM IV 40 MG VIAL IV PUSH (11:06)
[2021-04-20] MEDS: ESCITALOPRAM OXALATE 10 MG TABLET 20 MG PO (11:06)
[2021-04-20] MEDS: LORATADINE/PSEUDOEPHEDRINE (*CRX) 10/240 MG TABLET ER 24 HR 1 TAB PO (11:09)
[2021-04-20] MEDS: INSULIN ASPART (*BKC) 100 UNITS/ML SUB-Q ×2 (11:52→11:53)
--- NOTE | 2021-04-20 12:01 | PM.PNNEP ---
Progress Note: A&P Assessment and Plan (1) End-stage renal disease (ESRD): Onset Date: Unknown Code(s): N18.6 - End stage renal disease Status: Chronic Assessment and Plan: HD tomorrow and continue dialysis 3x/week (M/W/F) follow electrolytes, volume status, and clearance continue to push fluid removal as tolerated (2) Fluid overload: Onset Date: ~04/14/21 Qualifiers: Hypervolemia type: other Qualified Code(s): E87.79 - Other fluid overload Code(s): E87.70 - Fluid overload, unspecified Status: Acute Assessment and Plan: aggressive fluid removal with HD/DUF as tolerated HD/DUF yesterday switch diuretics to oral follow respiratory status (3) Hypothermia: Onset Date: ~04/16/21 Qualifiers: Encounter type: initial encounter Qualified Code(s): T68.XXXA - Hypothermia, initial encounter Code(s): T68.XXXA - Hypothermia, initial encounter Status: Acute Assessment and Plan: resolved - due to bacteremia(?) follow culture data -- Staph epidermis switched to oral antibiotics (was on IV previously) (4) Hypertension: Qualifiers: Hypertension type: essential hypertension Qualified Code(s): I10 - Essential (primary) hypertension Code(s): I10 - Essential (primary) hypertension Status: Chronic Assessment and Plan: poor control at baseline but doing better suspect volume overload status not helping this issue follow trend with aggressive fluid removal changed clonidine to PRN (high risk for rebound HTN given compliance issues) favor titration of terazosin and/or minoxidil follow trend of hemodynamics (5) Anemia: Onset Date: Unknown Qualifiers: Anemia type: due to chronic kidney disease Chronic kidney disease stage: on chronic dialysis Qualified Code(s): N18.6 - End stage renal disease; D63.1 - Anemia in chronic kidney disease; Z99.2 - Dependence on renal dialysis Code(s): D64.9 - Anemia, unspecified Status: Chronic Assessment and Plan: due to ESRD but recent hospitalizations playing a role H/H reading may be partly dilutional as well given fluid overload status Epogen with HD follow trend H/H PRBC transfusion per protocol (6) Type 1 diabetes: Qualifiers: Diabetes mellitus complication status: with kidney complications Diabetes mellitus complication detail: with chronic kidney disease Chronic kidney disease stage: on chronic dialysis Qualified Code(s): E10.22 - Type 1 diabetes mellitus with diabetic chronic kidney disease; N18.6 - End stage renal disease; Z99.2 - Dependence on renal dialysis Code(s): E10.9 - Type 1 diabetes mellitus without complications Status: Chronic Assessment and Plan: etiology of ESRD follow accuchecks on Lantus and SSI Not opposed to discharge from renal perspective if otherwise medically stable - I will follow-up with patient at his outpatient dialysis unit. Will continue to follow. Subjective Date/time seen: 04/20/21 12:01 Noted plans for discharge and patient seems happy about this; breathing/swelling/edema continues to slowly improve -- tolerated HD/DUF session yesterday with another 4L fluid removal; no other acute issues/problems to report at this time; no events overnight or earlier this AM. Exam Narrative: General: WD/WN male in NAD Heart: normal S1 and S2; no rub Lungs: decreased breath sounds at the bases Abdomen: soft, nontender, nondistended, positive bowel sounds Extremities: no cyanosis or clubbing; trace edema Skin: no nodules Objective Data Vital Signs Vital Signs: Vital Signs Temp Pulse Resp BP Pulse Ox 04/20/21 11:04 90 04/20/21 08:00 99 04/20/21 05:33 36.8 C 93 18 164/88 H 99 04/19/21 22:57 36.2 C L 78 18 142/84 H 100 04/19/21 22:00 92 04/19/21 20:00 99 04/19/21 17:57 80
--- NOTE | 2021-04-20 12:01 | P.PNNP_ITS ---
Progress Note: A&P Assessment and Plan (1) End-stage renal disease (ESRD): Onset Date: Unknown Code(s): N18.6 - End stage renal disease Status: Chronic Assessment and Plan: * HD tomorrow and continue dialysis 3x/week (M/W/F) * follow electrolytes, volume status, and clearance * continue to push fluid removal as tolerated (2) Fluid overload: Onset Date: ~04/14/21 Qualifiers: Hypervolemia type: other Qualified Code(s): E87.79 - Other fluid overload Code(s): E87.70 - Fluid overload, unspecified Status: Acute Assessment and Plan: * aggressive fluid removal with HD/DUF as tolerated * HD/DUF yesterday * switch diuretics to oral * follow respiratory status (3) Hypothermia: Onset Date: ~04/16/21 Qualifiers: Encounter type: initial encounter Qualified Code(s): T68.XXXA - Hypothermia, initial encounter Code(s): T68.XXXA - Hypothermia, initial encounter Status: Acute Assessment and Plan: * resolved - due to bacteremia(?) * follow culture data -- Staph epidermis * switched to oral antibiotics (was on IV previously) (4) Hypertension: Qualifiers: Hypertension type: essential hypertension Qualified Code(s): I10 - Essential (primary) hypertension Code(s): I10 - Essential (primary) hypertension Status: Chronic Assessment and Plan: * poor control at baseline but doing better * suspect volume overload status not helping this issue * follow trend with aggressive fluid removal * changed clonidine to PRN (high risk for rebound HTN given compliance issues) * favor titration of terazosin and/or minoxidil * follow trend of hemodynamics (5) Anemia: Onset Date: Unknown Qualifiers: Anemia type: due to chronic kidney disease Chronic kidney disease stage: on chronic dialysis Qualified Code(s): N18.6 - End stage renal disease; D63.1 - Anemia in chronic kidney disease; Z99.2 - Dependence on renal dialysis Code(s): D64.9 - Anemia, unspecified Status: Chronic Assessment and Plan: * due to ESRD but recent hospitalizations playing a role * H/H reading may be partly dilutional as well given fluid overload status * Epogen with HD * follow trend H/H * PRBC transfusion per protocol (6) Type 1 diabetes: Qualifiers: Diabetes mellitus complication status: with kidney complications Diabetes mellitus complication detail: with chronic kidney disease Chronic kidney disease stage: on chronic dialysis Qualified Code(s): E10.22 - Type 1 diabetes mellitus with diabetic chronic kidney disease; N18.6 - End stage renal disease; Z99.2 - Dependence on renal dialysis Code(s): E10.9 - Type 1 diabetes mellitus without complications Status: Chronic Assessment and Plan: * etiology of ESRD * follow accuchecks * on Lantus and SSI Not opposed to discharge from renal perspective if otherwise medically stable - I will follow-up with patient at his outpatient dialysis unit. Will continue to follow. Subjective Date/time seen: 04/20/21 12:01 Noted plans for discharge and patient seems happy about this; breathing/swelling/edema continues to slowly improve -- tolerated HD/DUF session yesterday with another 4L fluid removal; no other acute issues/problems to report at this time; no events overnight or earlier this AM. Exam Narrative: General: WD/WN male in NAD Heart: normal S1 and S2; no rub Lungs: decreased breath sounds at the bases Ab
[2021-04-20 12:17] LABS: Glucose Point of Care 232 mg/dl (65-105)
[2021-04-20 14:00] VITALS: BP 155/86; PULSE 98; RESP 20; TEMP 36.7; O2SAT 97
[2021-04-20 14:20] VITALS: O2SAT 93
== END 2021-04-20 16:13 | disposition home or self-care (01) | DRG 640 ==
LOC: ANHED 09:55 → ANHIMU 13:43 → ANH3MEDSUR 04-17 11:20
PROVIDERS: Physician Assistant; Admitting Provider Internal Medicine; Emergency Provider Nurse Practitioner Family; PCP Physician Assistant; Visit Provider Nurse Practitioner Adult Health
DX: E87.79 Other fluid overload (principal); N18.6 End stage renal disease; I12.0 Hypertensive chronic kidney disease with stage 5 chronic kidney disease or end stage renal disease; R78.81 Bacteremia; B95.7 Other staphylococcus as the cause of diseases classified elsewhere; E10.22 Type 1 diabetes mellitus with diabetic chronic kidney disease; Z99.2 Dependence on renal dialysis; D63.1 Anemia in chronic kidney disease; T68.XXXA Hypothermia, initial encounter; Z20.822 Contact with and (suspected) exposure to COVID-19; N25.0 Renal osteodystrophy; R77.8 Other specified abnormalities of plasma proteins; F17.220 Nicotine dependence, chewing tobacco, uncomplicated; M25.512 Pain in left shoulder; J45.909 Unspecified asthma, uncomplicated; G40.909 Epilepsy, unspecified, not intractable, without status epilepticus; G43.909 Migraine, unspecified, not intractable, without status migrainosus; F32.A Depression, unspecified; F41.9 Anxiety disorder, unspecified; Z79.4 Long term (current) use of insulin; Z79.899 Other long term (current) drug therapy
CPT/HCPCS: 36415; 36430; 71045; 80053; 80069; 80202; 82948; 83605; 83690; 83735; 83880; 84484; 85025; 85027; 85610; 85730; 86850; 86900; 86901; 86920; 87040; 87077; 87186; 87502; 93005; 96374; 96375; 96376; 97110; 97116; 97161; 97165; 97530; 97535; 99285; A9270; C9113; C9803; G0257; G0378; J0360; J0743; J1170; J1644; J1650; J1815; J3010; J3370; J7030; J7050; P9016; Q5105; U0003; U0005

== ENCOUNTER 2021-04-29 15:39 | Emergency (ER) | payer MEDICARE, MEDICAID, SELFPAY ==
[2021-04-29] VITALS (8 sets, daily range): BP systolic 163–202; BP diastolic 87–109; PULSE 94–105; RESP 14–22; TEMP 36.6–36.9; O2SAT 96–100
--- NOTE | ~2021-04-29 | XR_ITS ---
EXAMINATION: XR chest 1V portable DATE: 04/29/2021 19:55 INDICATION: Cough TECHNIQUE: frontal view of the chest was obtained. COMPARISON: Chest radiograph dated 04/16/2021 FINDINGS: Airspace opacity in the bilateral mid and lower lung zones significantly decreased since the prior st udy. Blunting at the costophrenic angles consistent with small bilateral pleural effusions, left grea ter than right. No pneumothorax. Cardiomegaly. IMPRESSION: 1. Decreased small left and tiny right pleural effusions. 2. Opacities in the bilateral mid and lower lung zones which could represent pulmonary edema, pneumon ia, atelectasis or some combination thereof. 2. Cardiomegaly. Reviewed, dictated and finalized at location [facility]. [facility] IMPRESSION: 1. Decreased small left and tiny right pleural effusions. 2. Opacities in the bilateral mid and lower lung zones which could represent pu lmonary edema, pneumonia, atelectasis or some combination thereof. 2. Cardiomegaly.
[2021-04-29 18:53] LABS: Basophils Percent Auto 0.4 % (0.2-1.2); Eosinophils Absolute Auto 0.2 K/mm3 (0-0.3); Eosinophils Percent Auto 5.1 % (0-4.4); Hematocrit 32.2 % (42.0-52.0); Hemoglobin 10.4 g/dL (14.0-18.0); Immature Granulocyte Absolute 0.02 K/mm3 (0.00-0.031); Immature Granulocyte Percent A 0.4 % (0-0.5); Lymphocytes Absolute Auto 0.65 K/mm3 (0.9-3.2); Lymphocytes Percent Auto 14.3 % (18.3-44.2); Mean Corpuscular HGB Conc 32.3 g/dl (32-36); Mean Corpuscular Hemoglobin 31.3 pg (26-34); Monocytes Absolute Auto 0.8 K/mm3 (0.1-0.6); Monocytes Percent Auto 17.9 % (2.6-8.5); Neutrophils Absolute Auto 2.8 K/mm3 (1.3-6.7); Neutrophils Percent Auto 61.9 % (45.5-73.1); Platelet Count Result 118 k/mm3 (150-375); Red Blood Count 3.32 M/mm3 (4.6-6.20); Red Cell Distribution Width 17.8 % (11.5-14.5); White Blood Count 4.5 K/mm3 (4.5-10.0)
[2021-04-29 19:02] LABS: Alanine Aminotransferase 20 U/L (4-50); Albumin Level 3.9 g/dL (3.5-5.1); Alkaline Phosphatase 179 U/L (38-126); Anion Gap 10 mmol/L (8-16); Aspartate Amino Transferase 39 U/L (17-59); Bilirubin,Total 0.6 mg/dL (0.2-1.3); Blood Urea Nitrogen 48 mg/dL (9-20); Calcium 8.8 mg/dL (8.4-10.2); Carbon Dioxide 34 mmol/L (22-30); Chloride 90 mmol/L (98-107); Estimated CRCL calculation 16 ml/min; Estimated Glomerular Filt Rate 11; Glucose 199 mg/dL (65-110); Lipase 48 U/L (23-300); Potassium 4.3 mmol/L (3.4-5.0); Sodium 134 mmol/L (137-145)
--- NOTE | 2021-04-29 19:50 | ED.NAVMDI ---
HPI - Nausea/Vomiting/Diarrhea General Chief complaint: Nausea/Vomiting/Diarrhea Stated complaint: diarrhea Time Seen by Provider: 04/29/21 19:30 Source: patient Mode of arrival: ambulatory Limitations: no limitations History of Present Illness HPI Narrative: 40 year old male with history signficant for DM, HTN, renal failure on dialysis presents today with complaints of diarrhea for 2 days and cough that he has noted since about the . [facility]. Patient had concerns that hsi ribs were broken but they were not. Patient does dialysis wednesday, wednesday, and wednesday with last dialysis Wednesday. He also says he just doens't feel well. Left heel with necrotic area noted. Patient has not been seen for this yet but has an appointment scheduled on with his primary. Related Data Home Medications Medication Instructions Recorded Confirmed albuterol sulfate [Ventolin HFA] 2 puff INHALATION Q6H PRN 11/04/19 04/14/21 hydralazine 100 mg PO TID 11/04/19 04/14/21 terazosin 2 mg PO BID 11/04/19 04/14/21 Lantus U-100 Insulin 15 unit SUBCUT HS 06/01/20 04/14/21 amitriptyline 50 mg PO HS 06/01/20 04/14/21 calcium acetate 2 tablet PO TIDWMEAL 06/01/20 04/14/21 escitalopram oxalate 20 mg PO DAILY #0 06/01/20 04/14/21 famotidine 20 mg PO BID 06/01/20 04/14/21 insulin lispro [Humalog U-100 See Rx Instructions .ROUTE .COMPLEX 06/02/20 04/14/21 Insulin] phenytoin sodium extended 100 mg PO TID 06/02/20 04/14/21 [Dilantin Extended] aspirin 81 mg PO DAILY 04/14/21 04/14/21 atorvastatin 40 mg PO HS 04/14/21 04/14/21 carvedilol 25 mg PO BID 04/14/21 04/14/21 clonidine HCl 0.3 mg PO BID 04/14/21 04/14/21 levetiracetam See Rx Instructions .ROUTE .COMPLEX 04/14/21 04/14/21 levothyroxine 50 mcg PO DAILY 04/14/21 04/14/21 sevelamer carbonate [Renvela] 800 mg PO TIDWM 04/14/21 04/14/21 Allergies Allergy/AdvReac Type Severity Reaction Status Date / Time fluorescein Allergy Severe HIVES, BP Verified 04/23/21 08:23 DROPPED, SWELLING TONGUE Penicillins Allergy Unknown Unknown Verified 04/23/21 08:23 Sulfa (Sulfonamide Allergy Unknown Unknown Verified 04/23/21 08:23 Antibiotics) chlorpromazine Allergy Rash Verified 04/23/21 08:23 [From Thorazine] valproic acid Allergy Unknown Verified 04/23/21 08:23 divalproex sodium AdvReac Confusion Verified 04/23/21 08:23 [From Depakote] Review of Systems Review of Systems: CONSTITUTIONAL: Denies fever, chills, or sweats. EYES: Denies visual changes, redness, or discharge. ENT: Denies rhinorrhea, congestion, sore throat, or otalgia. CARDIOVASCULAR: Denies chest pain, palpitations, or edema. RESPIRATORY: Cough and SOB. GASTROINTESTINAL: positive for diarrhea and intermittent abdominal pain. Currently pain free. Denies nausea or vomitting. GENITOURINARY: Denies dysuria or hematuria. SKIN: Denies rash or itching. MUSCULOSKELETAL: Denies back pain, joint pain, or myalgia. NEUROLOGIC: Denies headache, numbness, dizziness, or weakness. PSYCHIATRIC: Denies anxiety or depression. [facility] Past Medical History Medical History Anemia requiring transfusions Anxiety and depression Asthma End stage renal disease on dialysis Erythropoietin deficiency anemia Hypertension Migraines Renal osteodystrophy Seizure disorder (10/2019) Type 1 diabetes Diagnosed at the age of 14. Hemoglobin A1c was 6.6% on 11/06/2020. Surgical History Surgical History History of appendectomy History of cholecystectomy Previous back surgery Status post creation of arteriovenous fistula Status post insertion of dialysis catheter Status post LASIK surgery of both eyes Family History Family History Mother Diabetes mellitus Cerebrovascular accident Father Hypertension Social Histo
[2021-04-29] MEDS: SODIUM CHLORIDE 0.9% IV 500 ML 125 ML IV CONT (20:00)
[2021-04-29] MEDS: hydrALAZINE HCL 20 MG/ML VIAL IV PUSH (20:00)
--- NOTE | 2021-04-29 20:06 | PC.NURSE ---
Patient placed on bed alarm because patient is a fall risk and has fallen 3 times in the past month
--- NOTE | 2021-04-29 20:06 | PC.NURSE ---
Patient refused strait cath.
--- NOTE | 2021-04-29 20:19 | PC.NURSE ---
BED ALARM PLACED ON BED
[2021-04-29] MEDS: HYDROcodone/acetaminophen (*CRX) 5-325 MG TABLET 1 TAB PO (20:47)
--- NOTE | 2021-04-29 20:53 | PC.NURSE ---
Patient asked to void again and was unable to yet. Patient refused catheter.
[2021-04-29 21:00] LABS: SARS-CoV-2 RNA PCR Negative
[2021-04-29 21:10] LABS: NT Pro B Type Natriuretic Pept > 35000 pg/mL (5-100)
--- NOTE | 2021-04-29 23:41 | PC.NURSE ---
patient fluids stopped at 2040 per EDP Winter verbal order.
== END 2021-04-29 22:14 | disposition home or self-care (01) ==
PROVIDERS: Emergency Medicine; Emergency Provider Nurse Practitioner Family; PCP Physician Assistant
DX: I12.0 Hypertensive chronic kidney disease with stage 5 chronic kidney disease or end stage renal disease (principal); N18.6 End stage renal disease; R19.7 Diarrhea, unspecified; E10.22 Type 1 diabetes mellitus with diabetic chronic kidney disease; Z20.822 Contact with and (suspected) exposure to COVID-19; D63.1 Anemia in chronic kidney disease; Z99.2 Dependence on renal dialysis; N25.0 Renal osteodystrophy; G40.909 Epilepsy, unspecified, not intractable, without status epilepticus; F41.9 Anxiety disorder, unspecified; F32.A Depression, unspecified; R06.02 Shortness of breath; Z79.4 Long term (current) use of insulin; Z79.82 Long term (current) use of aspirin; Z99.81 Dependence on supplemental oxygen; Z87.891 Personal history of nicotine dependence; I51.7 Cardiomegaly; R91.8 Other nonspecific abnormal finding of lung field
CPT/HCPCS: 36415; 71045; 80053; 83690; 83880; 85025; 96361; 96374; 99284; A9270; C9803; J0360; J7040; U0003; U0005

== ENCOUNTER 2021-05-18 11:56 | Inpatient (IN) | payer MEDICARE, MEDICAID, SELFPAY ==
[2021-05-18] VITALS (17 sets, daily range): BP systolic 161–218; BP diastolic 96–124; PULSE 82–104; RESP 16–22; TEMP 36.3–36.7; O2SAT 91–100; BMI 26.2
--- NOTE | ~2021-05-18 | XR_ITS ---
EXAMINATION: XR chest 1V portable DATE: 05/18/2021 12:42 INDICATION: Shortness of breath. TECHNIQUE: frontal view of the chest was obtained. COMPARISON: Chest radiograph dated 04/29/2021 FINDINGS: Diffuse hazy airspace opacities throughout both lungs with more dense opacities at the bilateral lowe r lung zones with blunting at the costophrenic angles consistent with small to moderate-sized bilater al posterior layering pleural effusions with associated bibasilar atelectasis versus less likely pneu monia. Cardiomegaly with pulmonary vascular congestion. And seen is a oblong metallic density project ing over the heart potentially a mitraclip. Visualized bones and soft tissues are unremarkable. IMPRESSION: 1. Cardiomegaly with pulmonary vascular congestion and small to moderate-sized bilateral pleural effu sions. 2. Associated bibasilar atelectasis versus less likely pneumonia. Reviewed, dictated and finalized at location A. IMPRESSION: 1. Cardiomegaly with pulmonary vascular congestion and small to moderate-sized bilateral pleural effusions. 2. Associated bibasilar atelectasis versus less likely pneumonia.
--- NOTE | ~2021-05-18 | NM_ITS ---
EXAMINATION: NM pulmonary perfusion DATE: 05/19/2021 15:29 INDICATION: Chest pain. Hypoxia. TECHNIQUE: 4.9 mCi Tc-99m MAA by intravenous route. Scintigraphic images of the chest were obtained. COMPARISON: Chest radiograph dated 05/18/2021 FINDINGS: Nonsegmental perfusion defects which occupy significant portion of the dependent bilateral mid and lo wer lung zones and appearing to track along the bilateral major fissures with matched airspace opacit ies consistent with likely moderate-sized bilateral pleural effusions on the prior radiographs. No pe rfusion defects evident in the remainder of the lungs. Cardiomegaly. IMPRESSION: 1. Low probability for pulmonary embolism with large bilateral perfusion defects which appear to cor relate with moderate-sized bilateral pleural effusions. 2. Cardiomegaly. Reviewed, dictated and finalized at location A. IMPRESSION: 1. Low probability for pulmonary embolism with large bilateral perfusion defec ts which appear to correlate with moderate-sized bilateral pleural effusions. 2. Cardiomegaly.
--- NOTE | ~2021-05-18 | US_ITS ---
EXAMINATION: US venous doppler [facility] DATE: 05/19/2021 15:21 INDICATION: Lower limb edema. TECHNIQUE: Grayscale ultrasound images without and with compression and Doppler ultrasound images of the bilateral lower extremity veins were obtained. COMPARISON: Ultrasound 08/26/2020 FINDINGS: The visualized portions of right common femoral vein, profunda (deep) femoral vein, femoral vein, pop liteal vein, peroneal veins, posterior tibial veins, and greater saphenous vein outflow are patent. The visualized portions of left common femoral vein, profunda femoral vein, femoral vein, popliteal v ein, peroneal veins, posterior tibial veins, and greater saphenous vein outflow are patent. IMPRESSION: 1. No deep venous thrombosis. Reviewed, dictated and finalized at location A.
--- NOTE | 2021-05-18 12:09 | ECG_ITS ---
Measurements Intervals [place] Rate: 102 P: 50 ND: 117 QRS: 35 QRSD: 102 T: 69 QT: 358 QTc: 466 Interpretive Statements SINUS TACHYCARDIA WITH SHORT ND INTERVAL V2] ABNORMAL RHYTHM ECG COMPARED TO ECG 04/14/2021 10:14:57 PATIENT IS NOW TACHYCARDIC, NO OTHER CHANGES Electronically Signed On 05-18-2021 20:49:52 CDT by Shekhar Cantu M.D.
[2021-05-18 12:32] LABS: Basophils Absolute Auto 0.1 K/mm3 (0.0-0.1); Basophils Percent Auto 0.6 % (0.2-1.2); Eosinophils Absolute Auto 0.6 K/mm3 (0-0.3); Eosinophils Percent Auto 7.2 % (0-4.4); Hematocrit 29.2 % (42.0-52.0); Hemoglobin 9.3 g/dL (14.0-18.0); Immature Granulocyte Absolute 0.04 K/mm3 (0.00-0.031); Immature Granulocyte Percent A 0.5 % (0-0.5); Lymphocytes Absolute Auto 1.03 K/mm3 (0.9-3.2); Lymphocytes Percent Auto 12.2 % (18.3-44.2); Mean Corpuscular HGB Conc 31.8 g/dl (32-36); Mean Corpuscular Hemoglobin 30.4 pg (26-34); Mean Corpuscular Volume 95.4 fl (80-100); Mean Platelet Volume 9.2 fl (7.4-10.4); Monocytes Absolute Auto 0.8 K/mm3 (0.1-0.6); Monocytes Percent Auto 9.2 % (2.6-8.5); Neutrophils Absolute Auto 5.9 K/mm3 (1.3-6.7); Neutrophils Percent Auto 70.3 % (45.5-73.1); Platelet Count Result 286 k/mm3 (150-375); Red Blood Count 3.06 M/mm3 (4.6-6.20); Red Cell Distribution Width 15.1 % (11.5-14.5); White Blood Count 8.5 K/mm3 (4.5-10.0)
--- NOTE | 2021-05-18 12:39 | ED.CHESTPAIN ---
HPI - Chest Pain General Chief Complaint: Shortness of Breath/Dyspnea Stated Complaint: SOB Time Seen by Provider: 05/18/21 12:06 Source: patient Mode of arrival: ambulatory Limitations: no limitations History of Present Illness HPI narrative: Patient is a 40-year-old male complaining of chest pain, tightness, midsternal, 8 out of 10, nonradiating accompanied by shortness of breath and nausea and vomiting that started today. Patient also noticed increasing lower extremity edema. Patient has a history of end-stage renal disease on dialysis Wednesdays and Fridays, states that he was able to get dialysis this past Wednesday. Patient states that he is usually on 2 L nasal cannula continuously at home, due to shortness of breath he increase it to 4 L, upon EMS arrival his oxygen saturation was in the 90% on 4 L. Patient denies any abdominal pain, diaphoresis, fever or chills. Related Data Home Medications Medication Instructions Recorded Confirmed albuterol sulfate [Ventolin HFA] 2 puff INHALATION Q6H PRN 11/04/19 04/14/21 hydralazine 100 mg PO TID 11/04/19 04/14/21 terazosin 2 mg PO BID 11/04/19 04/14/21 Lantus U-100 Insulin 15 unit SUBCUT HS 06/01/20 04/14/21 amitriptyline 50 mg PO HS 06/01/20 04/14/21 calcium acetate 2 tablet PO TIDWMEAL 06/01/20 04/14/21 escitalopram oxalate 20 mg PO DAILY #0 06/01/20 04/14/21 famotidine 20 mg PO BID 06/01/20 04/14/21 insulin lispro [Humalog U-100 See Rx Instructions .ROUTE .COMPLEX 06/02/20 04/14/21 Insulin] phenytoin sodium extended 100 mg PO TID 06/02/20 04/14/21 [Dilantin Extended] aspirin 81 mg PO DAILY 04/14/21 04/14/21 atorvastatin 40 mg PO HS 04/14/21 04/14/21 carvedilol 25 mg PO BID 04/14/21 04/14/21 clonidine HCl 0.3 mg PO BID 04/14/21 04/14/21 levetiracetam See Rx Instructions .ROUTE .COMPLEX 04/14/21 04/14/21 levothyroxine 50 mcg PO DAILY 04/14/21 04/14/21 sevelamer carbonate [Renvela] 800 mg PO TIDWM 04/14/21 04/14/21 Allergies Allergy/AdvReac Type Severity Reaction Status Date / Time fluorescein Allergy Severe HIVES, BP Verified 05/18/21 12:12 DROPPED, SWELLING TONGUE Penicillins Allergy Unknown Unknown Verified 05/18/21 12:12 Sulfa (Sulfonamide Allergy Unknown Unknown Verified 05/18/21 12:12 Antibiotics) chlorpromazine Allergy Rash Verified 05/18/21 12:12 [From Thorazine] valproic acid Allergy Unknown Verified 05/18/21 12:12 divalproex sodium AdvReac Confusion Verified 05/18/21 12:12 [From Depakote] Review of Systems Review of Systems: All systems reviewed & are unremarkable except as noted in HPI and below Constitutional: Constitutional: Denies body ache(s), Denies chills, Denies excessive sweating, Denies fatigue, Denies fever(s), Denies headache(s), Denies lethargy, Denies malaise, Denies weakness and Denies weight loss Eyes: Eyes: Denies blurry vision, Denies change in vision and Denies loss of vision ENT: Denies dizziness, Denies ear discharge, Denies headache(s), Denies lip swelling, Denies epistaxis, Denies nasal congestion, Denies neck pain, Denies throat swelling and Denies tongue swelling Cardiovascular: Cardiovascular: Denies diaphoresis, Denies rapid heart rate, Denies edema, Denies irregular heart rhythm, Denies lightheadedness and Denies palpitations Respiratory: Respiratory: Denies chest congestion, Denies cough and Denies hemoptysis Gastrointestinal: Gastrointestinal: Denies abdominal pain, Denies melena, Denies hematochezia, Denies diarrhea and Denies hematemesis Musculoskeletal: Musculoskeletal: Denies abnormal gait, Denies deformity, Denies joint swelling, Denies limited range of motion, Denies neck pain and Denies numbness Neurologic: Denies Abnormal speech present, Denies abnormal gait, Denies confusion, Denies dizziness, Denies headache(s), Denies focal weakness, Denies loss of vision, Denies numbness, Denies Other visual disturbances, Denies Sensory deficit (Neuro) and Denies weakness Psychiatric: Psychiatric:
[2021-05-18] MEDS: FUROSEMIDE INJ 40 MG/4 ML VIAL IV PUSH (12:48)
[2021-05-18] MEDS: PROMETHAZINE HCL 25 MG/ML AMPUL 12.5 MG IV PUSH (12:48)
[2021-05-18 13:08] LABS: Alanine Aminotransferase 33 U/L (4-50); Albumin Level 4.4 g/dL (3.5-5.1); Alkaline Phosphatase 192 U/L (38-126); Anion Gap 10 mmol/L (8-16); Aspartate Amino Transferase 50 U/L (17-59); Bilirubin,Total 0.8 mg/dL (0.2-1.3); Blood Urea Nitrogen 64 mg/dL (9-20); Calcium 9.4 mg/dL (8.4-10.2); Carbon Dioxide 35 mmol/L (22-30); Chloride 89 mmol/L (98-107); Estimated CRCL calculation 15 ml/min; Estimated Glomerular Filt Rate 9; Glucose 150 mg/dL (65-110); Potassium 5.2 mmol/L (3.4-5.0); Sodium 134 mmol/L (137-145)
[2021-05-18 13:21] LABS: Troponin I 0.145 ng/mL (0.000-0.034)
[2021-05-18] MEDS: MORPHINE SULFATE (*CRX) 4 MG/ML INJ IV PUSH (14:04)
[2021-05-18] MEDS: LABETALOL HCL INJ 100 MG/20 ML VIAL 20 MG IV PUSH (14:08)
[2021-05-18] MEDS: NITROGLYCERIN SL 0.4 MG TABLET SUBLINGUAL (16:32)
[2021-05-18] MEDS: NITROGLYCERIN OINTMENT 1 INCH DOSE TRANSDERM (16:32)
--- NOTE | 2021-05-18 17:59 | ADMGEN ---
This patient, Ari Zuniga, was admitted to IMU Room 201-01. Patient/family oriented to hospital policies and general routines including ID bracelet, bed and alarms, visiting hours, pain management, procedures, bathroom and other care routines, personal items, smoking policy, room service/diet, and visiting hours. Information on how to activate the Rapid Response Team has been discussed. Patient/Family are encouraged to report perceived risks to care and to ask questions if they do not understand what they are told or what they should do.
--- NOTE | 2021-05-18 19:30 | PM.IMHP ---
H&P: HPI History of Present Illness Date/Time: 05/18/21 19:30 Chief Complaint: Chest pain. Narrative: This is a 40-year-old male with end-stage renal disease on hemodialysis, insulin-dependent diabetes, hypertension, chronic respiratory failure on 2 L nasal cannula, hypothyroidism, and other comorbidities who presented to the emergency department earlier today via EMS for evaluation of shortness of breath and chest pain. Last night around midnight simply while laying down in bed he developed pretty sudden onset of a sharp stabbing pain just left of the midsternal region that has been nearly constant since the outset. Around the same time he also felt increasingly short of breath and in fact he turned his oxygen up to 4 L as his SpO2 was reportedly low on his usual 2 L. The pain does not radiate and he has not noticed any significant alleviating factors. It is worse with deep inspiration, cough, and movement. Additionally he has noticed an increasing in lower extremity edema. He denies presyncope, syncope, palpitations, sweats, nausea, and vomiting with the pain however he did have an episode of emesis yesterday afternoon. On arrival to the emergency department his blood pressure was 214/124 and his initial troponin was elevated 0.145. His EKG was personally reviewed and demonstrated a sinus tachycardia with a normal axis and no acute ST segment changes. His chest x-ray showed cardiomegaly with pulmonary vascular congestion small to moderate size bilateral pleural effusions. With further questioning he does state compliance with dialysis however over the past 2 weeks he has not been able to get down to dry weight. Review of Systems Review of Systems: Twelve systems were reviewed. No fever, chills, or sweats. No recent cold or flu symptoms. No melena, hematochezia, or hematemesis. He no longer urinates. He has not had any significant episodes of hyperglycemia or hypoglycemia. No blurry vision, polydipsia, or polyuria. Except as documented, all other systems were reviewed and are negative. [facility] Past Medical History Medical History Anemia requiring transfusions Anxiety and depression Asthma End stage renal disease on dialysis Erythropoietin deficiency anemia Hypertension Migraines Renal osteodystrophy Seizure disorder (10/2019) Type 1 diabetes Diagnosed at the age of 14. Hemoglobin A1c was 6.6% on 11/06/2020. Surgical History Surgical History History of appendectomy History of cholecystectomy Previous back surgery Status post creation of arteriovenous fistula Status post insertion of dialysis catheter Status post LASIK surgery of both eyes Family History Family History Mother Diabetes mellitus Cerebrovascular accident Father Hypertension Social History Social History (Updated 05/18/21 @ 20:14 by Shonna Nieto PA-C) Social History: The patient lives with his . He is disabled. He has no biological children but his has 1 child that he is raising. Former smoker. He denies any alcohol marijuana or illicit drug use. He designates his , Dorothea Zuniga, as his surrogate decision maker. Code status: Full code. Smoking packs per day: 0.5 Smoking cigarettes per day: 10.0 Years smoked: 6 Smoking pack-years: 3.00 Tobacco type: cigarettes Smokeless tobacco user: chewing tobacco Second hand tobacco smoke exposure: Yes Alcohol intake: current Drinks per week: 10 Substance use: former Substance use type: does not use Spiritual care concerns: No Meds Home Medications and Allergies Home Medications Medication Instructions Recorded Confirmed Type albuterol sulfate [Ventolin HFA] 2 puff INHALATION Q6H PRN 11/04/19 05/18/21 History hydralazine 100 mg PO TID 11/04/19 05/18/21 History terazosin 2 mg PO BID 11/04/19 05/18/21
[2021-05-18] MEDS: HYDROmorphone HCL INJ (*CRX) 1 MG/ML SYR 0.5 MG IV PUSH (20:47)
[2021-05-18] MEDS: HEPARIN SODIUM 5,000 UNITS/ML VIAL 5000 UNITS SUB-Q (21:04)
[2021-05-18] MEDS: carvediloL 25 MG TABLET PO (23:03)
[2021-05-18] MEDS: cloNIDine HCL 0.1 MG TABLET 0.3 MG PO (23:04)
[2021-05-18] MEDS: ESCITALOPRAM OXALATE 10 MG TABLET 20 MG PO (23:05)
[2021-05-18] MEDS: hydrALAZINE HCL 50 MG TABLET 100 MG PO (23:05)
[2021-05-18] MEDS: ATORVASTATIN 40 MG TABLET PO (23:06)
[2021-05-18] MEDS: AMITRIPTYLINE HCL 25 MG TABLET 50 MG PO (23:06)
[2021-05-18] MEDS: TERAZOSIN HCL 1 MG CAPSULE 2 MG PO (23:07)
[2021-05-18] MEDS: PHENYTOIN SODIUM 100 MG EXTENDED RELEASE CAP PO (23:07)
[2021-05-18] MEDS: FAMOTIDINE 20 MG TABLET PO (23:07)
[2021-05-18] MEDS: VALPROIC ACID 250 MG CAPSULE PO (23:08)
[2021-05-18 23:24] LABS: Glucose Point of Care 95 mg/dl (65-105)
[2021-05-18 23:26] LABS: Hemoglobin A1C 6.7 % (<5.7)
[2021-05-18 23:37] LABS: Anion Gap 14 mmol/L (8-16); Blood Urea Nitrogen 65 mg/dL (9-20); Carbon Dioxide 33 mmol/L (22-30); Chloride 91 mmol/L (98-107); Estimated CRCL calculation 14 ml/min; Estimated Glomerular Filt Rate 8; Glucose 96 mg/dL (65-110); Magnesium 2.1 mg/dL (1.6-2.3); Phenytoin Dilantin < 3 ug/mL (10-20); Phosphorus 8.4 mg/dL (2.5-4.5); Potassium 5.4 mmol/L (3.4-5.0); Sodium 138 mmol/L (137-145); Troponin I 0.135 ng/mL (0.000-0.034)
[2021-05-19] VITALS (27 sets, daily range): BP systolic 112–202; BP diastolic 64–113; PULSE 77–95; RESP 14–20; TEMP 36.1–36.9; O2SAT 94–99
[2021-05-19 00:02] LABS: Valproic Acid < 10.0 ug/mL (50-120)
[2021-05-19] MEDS: VANCOMYCIN ORAL 125 MG/2.5 ML SYRUP PO ×5 (00:42→23:07)
[2021-05-19] MEDS: HYDROmorphone HCL INJ (*CRX) 1 MG/ML SYR 0.5 MG IV PUSH (02:56)
[2021-05-19] MEDS: VALPROIC ACID 250 MG CAPSULE PO ×3 (06:13→21:46)
[2021-05-19] MEDS: LEVOTHYROXINE SODIUM 50 MCG TABLET PO (06:13)
[2021-05-19 08:02] LABS: Alanine Aminotransferase 30 U/L (4-50); Albumin Level 3.9 g/dL (3.5-5.1); Alkaline Phosphatase 190 U/L (38-126); Anion Gap 12 mmol/L (8-16); Aspartate Amino Transferase 35 U/L (17-59); Bilirubin,Total 0.7 mg/dL (0.2-1.3); Blood Urea Nitrogen 68 mg/dL (9-20); Calcium 8.9 mg/dL (8.4-10.2); Carbon Dioxide 31 mmol/L (22-30); Chloride 93 mmol/L (98-107); Estimated CRCL calculation 13 ml/min; Estimated Glomerular Filt Rate 8; Glucose 121 mg/dL (65-110); Magnesium 2.1 mg/dL (1.6-2.3); Potassium 5.9 mmol/L (3.4-5.0); Sodium 136 mmol/L (137-145)
[2021-05-19 08:18] LABS: Hematocrit 22.9 % (42.0-52.0); Hemoglobin 7.2 g/dL (14.0-18.0); Mean Corpuscular HGB Conc 31.4 g/dl (32-36); Mean Corpuscular Hemoglobin 31.2 pg (26-34); Mean Corpuscular Volume 99.1 fl (80-100); Mean Platelet Volume 9.5 fl (7.4-10.4); Platelet Count Result 233 k/mm3 (150-375); Red Blood Count 2.31 M/mm3 (4.6-6.20); White Blood Count 6.8 K/mm3 (4.5-10.0)
[2021-05-19 08:44] LABS: Hepatitis B Surface Antigen Negative (Negative)
[2021-05-19 09:07] LABS: Hepatitis B Surface Anti Res Positive
[2021-05-19] MEDS: HYDROcodone/acetaminophen (*CRX) 5-325 MG TABLET 1 TAB PO ×2 (09:16→21:49)
[2021-05-19] MEDS: FAMOTIDINE 20 MG TABLET PO ×2 (09:31→21:35)
[2021-05-19] MEDS: diazePAM (*CRX) 2 MG TABLET PO (09:32)
[2021-05-19] MEDS: cloNIDine HCL 0.1 MG TABLET 0.3 MG PO ×2 (09:32→21:36)
[2021-05-19] MEDS: CALCIUM ACETATE 667 MG TABLET 1334 MG PO ×3 (09:32→17:26)
[2021-05-19] MEDS: PHENYTOIN SODIUM 100 MG EXTENDED RELEASE CAP PO ×3 (09:33→21:43)
[2021-05-19] MEDS: minoxidiL 2.5 MG TABLET PO ×2 (09:33→17:26)
[2021-05-19] MEDS: SEVELAMER CARBONATE 800 MG TABLET PO ×3 (09:33→17:26)
[2021-05-19] MEDS: ASPIRIN 81 MG CHEWABLE TABLET PO (09:33)
[2021-05-19] MEDS: TERAZOSIN HCL 1 MG CAPSULE 2 MG PO ×2 (09:34→21:45)
[2021-05-19] MEDS: carvediloL 25 MG TABLET PO ×2 (09:35→21:38)
--- NOTE | 2021-05-19 09:57 | PC.NURSE ---
Patient transported to Dialysis at 0948.
[2021-05-19 09:58] LABS: Glucose Point of Care 130 mg/dl (65-105)
[2021-05-19] MEDS: EPOETIN ALFA-EPBX 10,000 UNITS/ML VIAL 10000 UNITS IV PUSH (12:45)
--- NOTE | 2021-05-19 12:46 | PM.CNNEP ---
Assessment and Plan Assessment and plan (1) End stage renal disease: Code(s): N18.6 - End stage renal disease Status: Chronic Assessment and Plan: HD today and continue M/W/F schedule for now follow electrolytes, volume status, and clearance (2) Volume overload: Code(s): E87.70 - Fluid overload, unspecified Status: Acute Assessment and Plan: this is an ongoing issue/problem has had multiple admissions to several hospitals for the same issue unfortunately, it would seem he does not know how to limit his fluid intake in general fluid removal with HD/DUF as tolerated (3) Hypertension: Code(s): I10 - Essential (primary) hypertension Status: Chronic Assessment and Plan: brittle control at baseline likely worsened by fluid overload state resume home medications follow trend of hemodynamics with fluid removal as well (4) Anemia: Onset Date: Unknown Qualifiers: Anemia type: due to chronic kidney disease Chronic kidney disease stage: on chronic dialysis Qualified Code(s): N18.6 - End stage renal disease; D63.1 - Anemia in chronic kidney disease; Z99.2 - Dependence on renal dialysis Code(s): D64.9 - Anemia, unspecified Status: Chronic Assessment and Plan: due to ESRD Epogen with HD follow trend of H/H (5) Type 1 diabetes: Code(s): E10.9 - Type 1 diabetes mellitus without complications Status: Chronic Assessment and Plan: follow accuchecks glycemic control Will continue to follow. History of Present Illness Reason for Consult Consult date: 05/19/21 Reason for consult: end stage renal disease Chief Complaint Chief complaint: Chest Pain, ESRD needing Dialysis, CHF History of Present Illness Narrative: The patient is a 40-year-old male with an extensive past medical history is outlined below who presented to [facility] Emergency room with complaints of shortness of breath. The patient reports that his chronic shortness of breath was somewhat worse in the last a year to to the point where dilan in bed makes his breathing worse. He also complained of chest pain that he described as a short stabbing pain in the midsternal region as well. It was seen that his shortness of breath seemed to worsen his chest pain. Furthermore, his shortness of breath as well as chest pain were somewhat worse with deep inspiration cough or any movement. He also reports increasing lower extremity edema as well. For all these reasons, he presented to the emergency room for further evaluation Workup and evaluation emergency room demonstrated the patient to be quite hypertensive with a systolic BP greater than 200, a mildly elevated initial troponin, and EKG did not show any acute ischemic changes. Routine blood tests also demonstrated labs consistent with his known history of end-stage renal disease. His chest x-ray showed cardiomegaly with pulmonary vascular congestion as well as small the moderate bilateral pleural effusions. He reports compliance with his dialysis treatments but he also reports that he has significant fluid gains in between his dialysis treatments making it extremely difficult to get to his dry weight. Given these constellation of symptoms, laboratory findings, and imaging studies, he is admitted the hospital for further evaluation and therapy Renal consultation was requested due to his end-stage renal disease. I have the patient is quite familiar to me as I take care of his outpatient dialysis needs. He currently dialyzes on a Wednesday, Wednesday, Wednesday dialysis schedule under my care at [facility] in [place]. As already mentioned, he is compliant with his dialysis treatments however he cannot seem to maintain any type of fluid restriction as he has severe fluid gains in between his dialysis treatments and unfortunately, getting him down to his dry weight is almost near imposs
--- NOTE | 2021-05-19 13:53 | PC.NURSE ---
Patient brought back to IMU from dialysis at 1354. Report received from guero Taylor RN. 5 Liters of fluid removed per GISELLE Taylor.
[2021-05-19] MEDS: hydrALAZINE HCL 50 MG TABLET 100 MG PO ×3 (14:09→21:50)
[2021-05-19] MEDS: INSULIN GLARGINE (*BKC) 100 UNITS/ML 15 UNITS SUB-Q (14:09)
[2021-05-19] MEDS: HEPARIN SODIUM 5,000 UNITS/ML VIAL 5000 UNITS SUB-Q ×2 (14:11→21:44)
[2021-05-19] MEDS: FUROSEMIDE 40 MG TABLET 120 MG PO ×2 (14:15→17:26)
--- NOTE | 2021-05-19 14:27 | PC.NURSE ---
Patient transported to nuclear medicine at 1428. Transported by stretcher by transport team.
[2021-05-19 14:42] LABS: Glucose Point of Care 110 mg/dl (65-105)
--- NOTE | 2021-05-19 15:23 | PC.NURSE ---
Patient back from nuclear medicine at 1524. Transported back to IMU by transport team.
[2021-05-19 16:34] LABS: Glucose Point of Care 88 mg/dl (65-105)
[2021-05-19] MEDS: levETIRAcetam 500 MG TABLET BY MOUTH (17:26)
--- NOTE | 2021-05-19 20:24 | ECHO_ITS ---
Patient Info Name: Ari Zuniga Age: 40 years : 1980 Gender: Male Ht: 72 in Wt: 192 lbs BSA: 2.11 m2 HR: 88 bpm BP: 145 / 83 mmHg Heart Rhythm: Sinus Rhythm Technical Quality: Fair Exam Date: 05/19/2021 4:08 PM Exam Location: [facility] Pulmonary Patient Status: Inpatient Admit Date: 05/19/2021 Staff Ordering Physician: Shonna Nieto PA-C Benzene Washer Operator: Stacey Baugh RDCS Attending Provider: Cyndee Cloud M.A., MD Referring Physician: Gerson GAMING; Exam Type: CA echo doppler color flow Study Info Indications - chest pain, elevated troponin, htn Complete two-dimensional, color flow and Doppler transthoracic echocardiogram is performed. Summary 1. Complete two-dimensional, color flow and Doppler transthoracic echocardiogram is performed. 2. Left ventricular chamber dimension is normal. 3. Left ventricular systolic function is normal, estimated at 60-65%. 4. There is moderately increased left ventricular wall thickness. 5. The left ventricular diastolic function is normal. 6. There is mild tricuspid valve regurgitation. 7. Moderate pulmonary hypertension, estimated pulmonary arterial systolic pressure is 46 mmHg. 8. There is mild aortic valve stenosis with a peak velocity of 178 cm/s, mean gradient of 7 mmHg, and aortic valve area of 1.8 cm2. 9. There is small circumferential pericardial effusion. Large left pleural effusion. Left Ventricle Left ventricular chamber dimension is normal. Left ventricular systolic function is normal, estimated at 60-65%. There is moderately increased left ventricular wall thickness. The left ventricular diastolic function is normal. E/e' 18.5 is moderately elevated. Right Ventricle Right ventricular chamber dimension is normal. Right ventricular systolic function is reduced. Left Atria Left atrial chamber dimension is mildly enlarged. Right Atria Right atrial chamber dimension is mildly enlarged. Aortic Valve The aortic valve is trileaflet. There is mild aortic valve sclerosis. There is mild aortic valve stenosis with a peak velocity of 178 cm/s, mean gradient of 7 mmHg, and aortic valve area of 1.8 cm2. There is trace aortic valve regurgitation. Pulmonic Valve The pulmonic valve is normal. There is trace pulmonic regurgitation. Mitral Valve The mitral valve has normal leaflets. There is trace mitral valve regurgitation. The mitral valve annulus is mildly calcified. Tricuspid Valve The tricuspid valve leaflets are normal. There is mild tricuspid valve regurgitation. Moderate pulmonary hypertension, estimated pulmonary arterial systolic pressure is 46 mmHg. Pericardium/Pleural The pericardium appears normal. There is small circumferential pericardial effusion. Large left pleural effusion. Inferior Vena Cava Dilated inferior vena cava with >50% collapse upon inspiration consistent with elevated right atrial pressure, 10 mmHg. Aorta The aortic root size at the sinus of Valsalva is normal. Left Ventricular Outflow Tract Name Value Normal LVOT 2D LVOT Diameter 2.0 cm LVOT Doppler LVOT Peak Gradient
[2021-05-19] MEDS: ATORVASTATIN 40 MG TABLET PO (21:43)
[2021-05-19] MEDS: AMITRIPTYLINE HCL 25 MG TABLET 50 MG PO (21:44)
[2021-05-19] MEDS: diphenhydrAMINE HCl CAP 25 MG CAPSULE PO (23:06)
--- NOTE | 2021-05-19 23:10 | PM.IMPN ---
Progress Note: A&P Assessment and Plan (1) Chest pain at rest: Code(s): R07.9 - Chest pain, unspecified Status: Acute Assessment and Plan: VQ scan w/ low probability of PE. Troponin downtrending 0.0145-->0.0135. Echo w/ normal EF, mild and pulmonary HTN. Symptoms have resolved S/p HD. Still requiring 4LNC but 97-98% and can likely titrated down to his baseline 2LNC. -Wean oxygen as tolerate -Appreciate recommendations from Nephrology (2) Elevated troponin: Code(s): R77.8 - Other specified abnormalities of plasma proteins Status: Acute Assessment and Plan: Plan is as detailed above. (3) End-stage renal disease needing dialysis: Code(s): N18.6 - End stage renal disease; Z99.2 - Dependence on renal dialysis Status: Acute Assessment and Plan: Appreciate recommendations from Nephrology (4) Hyperkalemia: Code(s): E87.5 - Hyperkalemia Status: Acute Assessment and Plan: Resolved. (5) Volume overload: Code(s): E87.70 - Fluid overload, unspecified Status: Acute Assessment and Plan: Per patient report he has not been at his baseline weight for couple of weeks. His increasing oxygen requirement is most likely related to volume overload with pulmonary vascular congestion and increasing pleural effusions. (6) Severe hypertension: Code(s): I10 - Essential (primary) hypertension Status: Acute Assessment and Plan: Blood pressures have been significantly elevated since arrival but have improved with IV labetalol. Will continue antihypertensives and add hydralazine p.r.n. Subjective Date/time seen: Date of Service 05/19/21 at 1340 Patient says he feels much better. When asked why he came to the ED patient says he felt like he had additional fluid that needed removal by dialysis. Patient says he missed dialysis on Wednesday, and has felt like he needed additional fluid removal by dailysis since then. Patient says he has rib pain and would like something for the pain. He says lidocaine patches do not help. He says he now feels much better after having dialysis. Review of Systems Cardiovascular: Cardiovascular: Denies chest pain and Denies dyspnea Exam Narrative: General: NAD, cooperative HEENT: normocephalic, atraumatic, anicteric Neck: Supple CV: Murmur, right UE fistula w/ bruit & thrill Resp: CTAB Abdomen: soft,NT,ND Extremities: RUE fistula Skin: warm, dry, intact Neuro: CN 2-12 grossly intact. Objective Data Vital Signs Vital Signs: Vital Signs - 24 hr 05/18/21 23:30 05/18/21 23:37 05/18/21 23:50 Temperature 97.6 F Pulse Rate 97 Respiratory Rate 20 Blood Pressure 192/112 H Pulse Oximetry 94 100 100 05/19/21 00:00 05/19/21 02:00 05/19/21 02:23 Temperature Pulse Rate 86 87 Respiratory Rate Blood Pressure 136/84 Pulse Oximetry 05/19/21 04:00 05/19/21 06:00 05/19/21 08:00 Temperature 97.9 F 97.5 F L Pulse Rate 88 95 92 Respiratory Rate 20 18 Blood Pressure 145/83 H 141/81 H Pulse Oximetry 99 94 05/19/21 08:48 05/19/21 09:35 05/19/21 09:59 Temperature 98.5 F Pulse Rate 90 88 Respiratory Rate 20 Blood Pressure 189/111 H Pulse Oximetry 94 05/19/21 10:00 05/19/21 10:30 05/19/21 11:00 Temperature Pulse Rate 88 91 86 Respiratory Rate Blood Pressure 202/113 H 163/84 H 123/74 Pulse Oximetry 05/19/21 11:30 05/19/21 12:00 05/19/21 12:45 Temperature Pulse Rate 77 80 81 Respiratory Rate Blood Pressure 120/64 112/66 122/69 Pulse Oximetry 05/19/21 13:00 05/19/21 13:30 05/19/21 13:40 Temperature 97.9 F Pulse Rate 81 82 89 Respiratory Rate 20 Blood Pressure 150/85 H 154/83 H 159/89 H Pulse Oximetry 05/19/21 13:54 05/19/21 14:00 05/19/21 14:04 Temperature 98.2 F Pulse Rate 93 87 Respiratory Rate 14 Blood Pressure 141/76 H Pulse Oximetry 97 97 05/19/21 16:00 05/19
[2021-05-19 23:27] LABS: Glucose Point of Care 89 mg/dl (65-105)
[2021-05-20] VITALS (28 sets, daily range): BP systolic 125–179; BP diastolic 64–101; PULSE 77–96; RESP 15–22; TEMP 35–36.6; O2SAT 93–97
[2021-05-20] MEDS: ACETAMINOPHEN 325 MG TABLET 650 MG PO (02:59)
[2021-05-20] MEDS: HYDROcodone/acetaminophen (*CRX) 5-325 MG TABLET 1 TAB PO ×3 (03:26→18:58)
[2021-05-20] MEDS: VALPROIC ACID 250 MG CAPSULE PO ×2 (06:00→20:39)
[2021-05-20] MEDS: VANCOMYCIN ORAL 125 MG/2.5 ML SYRUP PO ×4 (06:01→20:39)
[2021-05-20] MEDS: LEVOTHYROXINE SODIUM 50 MCG TABLET PO (06:01)
[2021-05-20 07:51] LABS: Basophils Percent Auto 0.6 % (0.2-1.2); Eosinophils Absolute Auto 0.4 K/mm3 (0-0.3); Eosinophils Percent Auto 7.1 % (0-4.4); Hematocrit 23.6 % (42.0-52.0); Hemoglobin 7.4 g/dL (14.0-18.0); Immature Granulocyte Absolute 0.02 K/mm3 (0.00-0.031); Immature Granulocyte Percent A 0.4 % (0-0.5); Lymphocytes Absolute Auto 1.16 K/mm3 (0.9-3.2); Lymphocytes Percent Auto 21.8 % (18.3-44.2); Mean Corpuscular HGB Conc 31.4 g/dl (32-36); Mean Corpuscular Volume 98.7 fl (80-100); Mean Platelet Volume 9.2 fl (7.4-10.4); Monocytes Absolute Auto 0.5 K/mm3 (0.1-0.6); Neutrophils Absolute Auto 3.3 K/mm3 (1.3-6.7); Neutrophils Percent Auto 61.1 % (45.5-73.1); Platelet Count Result 223 k/mm3 (150-375); Red Blood Count 2.39 M/mm3 (4.6-6.20); Red Cell Distribution Width 15.3 % (11.5-14.5); White Blood Count 5.3 K/mm3 (4.5-10.0)
[2021-05-20 08:03] LABS: Anion Gap 10 mmol/L (8-16); Blood Urea Nitrogen 56 mg/dL (9-20); Calcium 9.2 mg/dL (8.4-10.2); Carbon Dioxide 30 mmol/L (22-30); Chloride 100 mmol/L (98-107); Estimated CRCL calculation 17 ml/min; Estimated Glomerular Filt Rate 10; Glucose 41 mg/dL (65-110); Potassium 5.6 mmol/L (3.4-5.0); Sodium 140 mmol/L (137-145)
[2021-05-20] MEDS: GLUCOSE ORAL GEL 15 GM OF GLUCSE IN 37.5 GM TUBE PO ×2 (08:17→08:37)
[2021-05-20] MEDS: CALCIUM ACETATE 667 MG TABLET 1334 MG PO ×3 (08:20→18:59)
[2021-05-20] MEDS: SEVELAMER CARBONATE 800 MG TABLET PO ×3 (08:21→19:00)
[2021-05-20] MEDS: PHENYTOIN SODIUM 100 MG EXTENDED RELEASE CAP PO ×3 (08:21→20:39)
[2021-05-20 09:04] LABS: Glucose Point of Care 92 mg/dl (65-105)
[2021-05-20 09:04] LABS: Glucose Point of Care 35 mg/dl (65-105)
[2021-05-20 09:04] LABS: Glucose Point of Care 29 mg/dl (65-105)
[2021-05-20] MEDS: ASPIRIN 81 MG CHEWABLE TABLET PO (10:04)
[2021-05-20] MEDS: minoxidiL 2.5 MG TABLET PO ×2 (10:04→19:00)
[2021-05-20] MEDS: cloNIDine HCL 0.1 MG TABLET 0.3 MG PO ×2 (10:04→20:40)
[2021-05-20] MEDS: hydrALAZINE HCL 50 MG TABLET 100 MG PO ×3 (10:04→18:59)
[2021-05-20] MEDS: ESCITALOPRAM OXALATE 10 MG TABLET 20 MG PO (10:05)
[2021-05-20] MEDS: carvediloL 25 MG TABLET PO ×2 (10:05→20:40)
[2021-05-20] MEDS: FUROSEMIDE 40 MG TABLET 120 MG PO ×2 (10:06→18:59)
[2021-05-20] MEDS: TERAZOSIN HCL 1 MG CAPSULE 2 MG PO ×2 (10:06→20:40)
[2021-05-20] MEDS: FAMOTIDINE 20 MG TABLET PO ×2 (10:06→20:40)
[2021-05-20] MEDS: HEPARIN SODIUM 5,000 UNITS/ML VIAL 5000 UNITS SUB-Q ×2 (10:07→20:39)
--- NOTE | 2021-05-20 11:53 | PM.PNNEP ---
Progress Note: A&P Assessment and Plan (1) End stage renal disease: Code(s): N18.6 - End stage renal disease Status: Chronic Assessment and Plan: HD tomorrow and continue M/W/F schedule for now follow electrolytes, volume status, and clearance (2) Volume overload: Code(s): E87.70 - Fluid overload, unspecified Status: Acute Assessment and Plan: this is an ongoing issue/problem has had multiple admissions to several hospitals for the same issue unfortunately, it would seem he does not know how to limit his fluid intake in general fluid removal with HD/DUF as tolerated - DUF today (3) Hypertension: Code(s): I10 - Essential (primary) hypertension Status: Chronic Assessment and Plan: brittle control at baseline likely worsened by fluid overload state resume home medications follow trend of hemodynamics with fluid removal as well (4) Anemia: Onset Date: Unknown Qualifiers: Anemia type: due to chronic kidney disease Chronic kidney disease stage: on chronic dialysis Qualified Code(s): N18.6 - End stage renal disease; D63.1 - Anemia in chronic kidney disease; Z99.2 - Dependence on renal dialysis Code(s): D64.9 - Anemia, unspecified Status: Chronic Assessment and Plan: due to ESRD Epogen with HD follow trend of H/H (5) Type 1 diabetes: Code(s): E10.9 - Type 1 diabetes mellitus without complications Status: Chronic Assessment and Plan: follow accuchecks glycemic control Will continue to follow. Subjective Date/time seen: 05/20/21 11:53 Tolerated dialysis treatment yesterday with almost 5L fluid removal; plan HD/DUF again today later this afternoon further fluid removal; issues with hypoglycemia this AM; blood pressure and fluid status doing better at this time. Exam Narrative: General: somewhat chronically ill appearing male in NAD Heart: normal S1 and S2; no rub Lungs: decreased at bases Abdomen: soft, nontender, nondistended, positive bowel sounds Extremities: no cyanosis or clubbing; 1+ edema Skin: warm and dry Objective Data Vital Signs Vital Signs: Vital Signs Temp Pulse Resp BP Pulse Ox 05/20/21 10:05 81 05/20/21 10:00 86 05/20/21 08:07 94 05/20/21 08:00 36.6 C 82 16 179/96 H 93 05/20/21 06:00 81 05/20/21 04:00 36.2 C L 77 20 147/91 H 97 05/20/21 02:00 81 05/20/21 00:00 86 96 05/19/21 23:34 36.1 C L 87 20 155/89 H 99 05/19/21 22:00 89 05/19/21 21:38 90 05/19/21 20:00 36.7 C 94 20 152/83 H 96 05/19/21 18:00 89 05/19/21 16:00 36.6 C 92 18 156/85 H 98 05/19/21 14:04 36.8 C 87 14 141/76 H 97 05/19/21 14:00 93 05/19/21 13:54 97 05/19/21 13:40 36.6 C 89 20 159/89 H 05/19/21 13:30 82 154/83 H 05/19/21 13:00 81 150/85 H 05/19/21 12:45 81 122/69 05/19/21 12:00 80 112/66 Intake/Output Intake/Output: Intake & Output 05/17/21 05/18/21 05/19/21 05/20/21 23:59 23:59 23:59 23:59 Intake Total 1310 240 Output Total 5000 0 Balance -3690 240 Meds/Results Medications: Active Medications Generic Name Dose Route Start Last Admin Trade Name Freq PRN Reason Stop Dose Admin Acetaminophen 650 mg 05/18/21 20:03 05/20/21 02:59 Acetaminophen 325 Mg Tablet PO 650 mg Q6H PRN Administration Mild Pain (1-3) or Fever Hydrocodone Bitart/Acetaminophen 1 tab 05/18/21 20:03 05/20/21 10:08 Hydrocodone/Acetaminophen (*Crx) 5-325 Mg Tablet PO 1 tab Q6H PRN Administration Pain Rated 4-6 Albuterol 2 puff 05/18/21 21:33 Albuterol Sulfate (*Sp) Aerosol 1 Puff INHALATION Q6H PRN Wheezing Amitriptyline HCl 50 mg 05/18/21 21:40 05/19/21 21:44 Amitriptyline Hcl 25 Mg Tablet PO 50 mg HS BELKYS Administration Aspirin 81 mg 05/19/21 09:00 05/20/21 10:04 Aspirin 81 Mg Chewable Ta
[2021-05-20 12:09] LABS: Glucose Point of Care 207 mg/dl (65-105)
[2021-05-20] MEDS: INSULIN ASPART (*BKC) 100 UNITS/ML SUB-Q (12:33)
[2021-05-20] MEDS: INSULIN GLARGINE (*BKC) 100 UNITS/ML 15 UNITS SUB-Q (12:34)
[2021-05-20] MEDS: diazePAM (*CRX) 2 MG TABLET PO (15:26)
[2021-05-20] MEDS: EPOETIN ALFA-EPBX 10,000 UNITS/ML VIAL 10000 UNITS IV PUSH (16:25)
[2021-05-20] MEDS: SODIUM CHLORIDE 0.9% IV 1,000 ML 999 ML IV CONT (16:25)
[2021-05-20 19:08] LABS: Glucose Point of Care 141 mg/dl (65-105)
[2021-05-20 20:03] LABS: Glucose Point of Care 168 mg/dl (65-105)
[2021-05-20] MEDS: AMITRIPTYLINE HCL 25 MG TABLET 50 MG PO (20:39)
[2021-05-20] MEDS: ATORVASTATIN 40 MG TABLET PO (20:40)
--- NOTE | 2021-05-20 21:14 | PC.NURSE ---
patient refuses to do things for himself. he tries to get staff to do simple things for him. he wanted lotion rubbed on him and was asking everyone to do it. he wanted covered up, but was able to uncover himself and sit on the side of the bed. wants staff to help him walk, but also wants the freedom to walk all over by himself. stated that nobody comes in to move him, but he can move all extremities himself.
--- NOTE | 2021-05-20 22:00 | PM.IMPN ---
Progress Note: A&P Assessment and Plan (1) Chest pain at rest: Code(s): R07.9 - Chest pain, unspecified Status: Acute Assessment and Plan: VQ scan w/ low probability of PE. Troponin downtrending 0.0145-->0.0135. Echo w/ normal EF, mild and pulmonary HTN. Symptoms have resolved S/p HD. Still requiring 4LNC but 97-98% and can likely titrated down to his baseline 2LNC. -Wean oxygen as tolerate -Appreciate recommendations from Nephrology - planned for HD today -Plan for discharge tomorrow after HD if patient remains on 2LNC or less (2) Elevated troponin: Code(s): R77.8 - Other specified abnormalities of plasma proteins Status: Acute Assessment and Plan: Plan is as detailed above. (3) End-stage renal disease needing dialysis: Code(s): N18.6 - End stage renal disease; Z99.2 - Dependence on renal dialysis Status: Acute Assessment and Plan: Appreciate recommendations from Nephrology (4) Hyperkalemia: Code(s): E87.5 - Hyperkalemia Status: Acute Assessment and Plan: Resolved. (5) Volume overload: Code(s): E87.70 - Fluid overload, unspecified Status: Acute Assessment and Plan: Per patient report he has not been at his baseline weight for couple of weeks. His increasing oxygen requirement is most likely related to volume overload with pulmonary vascular congestion and increasing pleural effusions. (6) Severe hypertension: Code(s): I10 - Essential (primary) hypertension Status: Acute Assessment and Plan: Blood pressures have been significantly elevated since arrival but have improved with IV labetalol. Will continue antihypertensives and add hydralazine p.r.n. Subjective Date/time seen: Date of Service 05/20/21 1135 Patient says he has rib pain from falling backward while attempting to take off his croc in the kitchen. Says he does not want hydromorphone. Review of Systems Constitutional: Constitutional: Reports fatigue Musculoskeletal: Musculoskeletal: Reports myalgias and Reports arthralgias Exam Narrative: General: NAD, cooperative HEENT: normocephalic, atraumatic, anicteric Neck: Supple CV: Murmur, right UE fistula w/ bruit & thrill Resp: CTAB Abdomen: soft,NT,ND Extremities: RUE fistula Skin: warm, dry, intact Neuro: CN 2-12 grossly intact. Objective Data Vital Signs Vital Signs: Vital Signs - 24 hr 05/19/21 23:34 05/20/21 00:00 05/20/21 02:00 Temperature 97 F L Pulse Rate 87 86 81 Respiratory Rate 20 Blood Pressure 155/89 H Pulse Oximetry 99 96 05/20/21 04:00 05/20/21 06:00 05/20/21 08:00 Temperature 97.1 F L 97.9 F Pulse Rate 77 81 82 Respiratory Rate 20 16 Blood Pressure 147/91 H 179/96 H Pulse Oximetry 97 93 05/20/21 08:07 05/20/21 10:00 05/20/21 10:05 Temperature Pulse Rate 86 81 Respiratory Rate Blood Pressure Pulse Oximetry 94 05/20/21 12:00 05/20/21 14:00 05/20/21 15:35 Temperature 97.8 F 97.6 F Pulse Rate 79 77 79 Respiratory Rate 16 22 H Blood Pressure 173/93 H 165/101 H Pulse Oximetry 95 05/20/21 15:44 05/20/21 16:00 05/20/21 16:15 Temperature Pulse Rate 80 82 84 Respiratory Rate Blood Pressure 153/88 H 155/88 H 143/75 H Pulse Oximetry 05/20/21 16:30 05/20/21 16:45 05/20/21 17:07 Temperature Pulse Rate 85 85 86 Respiratory Rate Blood Pressure 134/77 144/72 H 142/76 H Pulse Oximetry 05/20/21 17:17 05/20/21 17:31 05/20/21 17:47 Temperature Pulse Rate 87 87 88 Respiratory Rate Blood Pressure 141/76 H 130/72 138/76 Pulse Oximetry 05/20/21 18:00 05/20/21 18:15 05/20/21 18:35 Temperature Pulse Rate 90 89 90 Respiratory Rate Blood Pressure 158/85 H 155/80 H 142/78 H Pulse Oximetry 05/20/21 18:38 05/20/21 20:00 05/20/21 20:40 Temperature 97.5 F L 97.8 F Pulse Rate 89 93 90 Respiratory Rate 20 20 Blood Pressure 163/83 H 125/64
[2021-05-21] VITALS (12 sets, daily range): BP systolic 98–167; BP diastolic 77–98; PULSE 77–92; RESP 12–16; TEMP 36.3–36.6; O2SAT 93–98
[2021-05-21] MEDS: HYDROcodone/acetaminophen (*CRX) 5-325 MG TABLET 1 TAB PO ×2 (02:27→08:31)
[2021-05-21] MEDS: diphenhydrAMINE HCl CAP 25 MG CAPSULE PO (02:27)
[2021-05-21] MEDS: VALPROIC ACID 250 MG CAPSULE PO (05:58)
[2021-05-21] MEDS: VANCOMYCIN ORAL 125 MG/2.5 ML SYRUP PO ×2 (05:59→13:09)
[2021-05-21] MEDS: LEVOTHYROXINE SODIUM 50 MCG TABLET PO (05:59)
[2021-05-21 07:46] LABS: Glucose Point of Care 256 mg/dl (65-105)
[2021-05-21] MEDS: hydrALAZINE HCL 50 MG TABLET 100 MG PO ×2 (08:29→16:52)
[2021-05-21] MEDS: PHENYTOIN SODIUM 100 MG EXTENDED RELEASE CAP PO ×2 (08:30→13:09)
[2021-05-21] MEDS: CALCIUM ACETATE 667 MG TABLET 1334 MG PO ×3 (08:30→16:52)
[2021-05-21] MEDS: TERAZOSIN HCL 1 MG CAPSULE 2 MG PO (08:31)
[2021-05-21] MEDS: SEVELAMER CARBONATE 800 MG TABLET PO ×3 (08:31→16:53)
[2021-05-21] MEDS: ESCITALOPRAM OXALATE 10 MG TABLET 20 MG PO (08:31)
[2021-05-21] MEDS: FAMOTIDINE 20 MG TABLET PO (08:32)
[2021-05-21] MEDS: cloNIDine HCL 0.1 MG TABLET 0.3 MG PO (08:32)
[2021-05-21] MEDS: ASPIRIN 81 MG CHEWABLE TABLET PO (08:32)
[2021-05-21] MEDS: carvediloL 25 MG TABLET PO (08:32)
[2021-05-21] MEDS: FUROSEMIDE 40 MG TABLET 120 MG PO ×2 (08:32→16:52)
[2021-05-21] MEDS: INSULIN GLARGINE (*BKC) 100 UNITS/ML 15 UNITS SUB-Q (08:33)
[2021-05-21] MEDS: minoxidiL 2.5 MG TABLET PO ×2 (08:33→16:54)
[2021-05-21] MEDS: HEPARIN SODIUM 5,000 UNITS/ML VIAL 5000 UNITS SUB-Q (08:33)
[2021-05-21] MEDS: INSULIN ASPART (*BKC) 100 UNITS/ML SUB-Q (08:34)
--- NOTE | 2021-05-21 12:02 | PM.PNNEP ---
Progress Note: A&P Assessment and Plan (1) End stage renal disease: Code(s): N18.6 - End stage renal disease Status: Chronic Assessment and Plan: HD tomorrow and resume M/W/F schedule next week follow electrolytes, volume status, and clearance (2) Volume overload: Code(s): E87.70 - Fluid overload, unspecified Status: Acute Assessment and Plan: this is an ongoing issue/problem has had multiple admissions to several hospitals for the same issue unfortunately, it would seem he does not know how to limit his fluid intake in general fluid removal with HD/DUF as tolerated (3) Hypertension: Code(s): I10 - Essential (primary) hypertension Status: Chronic Assessment and Plan: brittle control at baseline likely worsened by fluid overload state resume home medications follow trend of hemodynamics with fluid removal as well (4) Anemia: Onset Date: Unknown Qualifiers: Anemia type: due to chronic kidney disease Chronic kidney disease stage: on chronic dialysis Qualified Code(s): N18.6 - End stage renal disease; D63.1 - Anemia in chronic kidney disease; Z99.2 - Dependence on renal dialysis Code(s): D64.9 - Anemia, unspecified Status: Chronic Assessment and Plan: due to ESRD Epogen with HD follow trend of H/H (5) Type 1 diabetes: Code(s): E10.9 - Type 1 diabetes mellitus without complications Status: Chronic Assessment and Plan: follow accuchecks glycemic control Will continue to follow. Subjective Date/time seen: 05/21/21 12:02 Tolerated HD/DUF yesterday as well as the day before; BP and volume status appears to be improving; no issues/events/problems overnight or earlier this AM. Exam Narrative: General: chronically ill-appearing male in NAD Heart: normal S1 and S2; no rub Lungs: decreased at bases Abdomen: soft, nontender, nondistended, positive bowel sounds Extremities: no cyanosis or clubbing; 1+ edema Skin: warm and intact Objective Data Vital Signs Vital Signs: Vital Signs Temp Pulse Resp BP Pulse Ox 05/21/21 10:00 77 05/21/21 08:32 88 05/21/21 08:00 85 12 95 05/21/21 07:48 36.5 C 87 12 167/98 H 95 05/21/21 06:00 92 05/21/21 04:00 36.3 C L 86 16 152/79 H 97 05/21/21 02:00 91 05/21/21 00:00 89 15 93 05/20/21 23:41 36.3 C L 90 15 141/71 H 93 05/20/21 22:00 96 05/20/21 20:40 90 05/20/21 20:00 36.6 C 93 20 125/64 93 05/20/21 18:38 36.4 C L 89 20 163/83 H 05/20/21 18:35 90 142/78 H 05/20/21 18:15 89 155/80 H 05/20/21 18:00 90 158/85 H 05/20/21 17:47 88 138/76 05/20/21 17:31 87 130/72 05/20/21 17:17 87 141/76 H 05/20/21 17:07 86 142/76 H 05/20/21 16:45 85 144/72 H 05/20/21 16:30 85 134/77 05/20/21 16:15 84 143/75 H 05/20/21 16:00 82 155/88 H 05/20/21 15:44 80 153/88 H 05/20/21 15:35 36.4 C 79 22 H 165/101 H 05/20/21 14:00 77 Intake/Output Intake/Output: Intake & Output 05/18/21 05/19/21 05/20/21 05/21/21 23:59 23:59 23:59 23:59 Intake Total 1310 960 600 Output Total 5000 5000 Balance -3690 -4040 600 Meds/Results Medications: Active Medications Generic Name Dose Route Start Last Admin Trade Name Freq PRN Reason Stop Dose Admin Acetaminophen 650 mg 05/18/21 20:03 05/20/21 02:59 Acetaminophen 325 Mg Tablet PO 650 mg Q6H PRN Administration Mild Pain (1-3) or Fever Hydrocodone Bitart/Acetaminophen 1 tab 05/20/21 21:58 05/21/21 08:31 Hydrocodone/Acetaminophen (*Crx) 5-325 Mg Tablet PO 1 tab Q4H PRN Administration Pain Rated 4-6 Albuterol 2 puff 05/18/21 21:33 Albuterol Sulfate (*Sp) Aerosol 1 Puff INHALATION Q6H PRN Wheezing Amitriptyline HCl 50 mg 05/18/21 21:40 05/20/21 20:39 Amitriptyline Hcl 25 Mg Tablet PO 50 mg
[2021-05-21 12:48] LABS: Glucose Point of Care 148 mg/dl (65-105)
--- NOTE | 2021-05-21 16:16 | PM.DS ---
DS: Admitting Diagnosis Discharge Date 05/21/2021 Admitting Diagnosis Chest Pain DS: Discharge Diagnosis Discharge Diagnosis (1) Chest pain at rest: Code(s): R07.9 - Chest pain, unspecified Status: Acute Assessment and Plan: VQ scan w/ low probability of PE. Troponin downtrending 0.0145-->0.0135. Echo w/ normal EF, mild and pulmonary HTN. Symptoms have resolved S/p HD. Patient is back to his baseline of 2LNC oxygen with adequate saturation. -Appreciate recommendations from Nephrology - planned for HD today -Discharge to home (2) Elevated troponin: Code(s): R77.8 - Other specified abnormalities of plasma proteins Status: Acute Assessment and Plan: Plan is as detailed above. (3) End-stage renal disease needing dialysis: Code(s): N18.6 - End stage renal disease; Z99.2 - Dependence on renal dialysis Status: Acute Assessment and Plan: Appreciate recommendations from Nephrology (4) Hyperkalemia: Code(s): E87.5 - Hyperkalemia Status: Acute Assessment and Plan: Resolved. (5) Volume overload: Code(s): E87.70 - Fluid overload, unspecified Status: Acute Assessment and Plan: Per patient report he has not been at his baseline weight for couple of weeks. His increasing oxygen requirement is most likely related to volume overload with pulmonary vascular congestion and increasing pleural effusions. (6) Severe hypertension: Code(s): I10 - Essential (primary) hypertension Status: Acute Assessment and Plan: Blood pressures have been significantly elevated since arrival but have improved with IV labetalol. Will continue antihypertensives and add hydralazine p.r.n. DS: Summary Hospital Course Hospital Course: 40-year-old male with end-stage renal disease on hemodialysis, insulin-dependent diabetes, hypertension, chronic respiratory failure on 2 L nasal cannula, hypothyroidism, and other comorbidities who presented to the emergency department earlier today via EMS for evaluation of shortness of breath and chest pain. Last night around midnight simply while laying down in bed he developed pretty sudden onset of a sharp stabbing pain just left of the midsternal region that has been nearly constant since the outset. Around the same time he also felt increasingly short of breath and in fact he turned his oxygen up to 4 L as his SpO2 was reportedly low on his usual 2 L. The pain does not radiate and he has not noticed any significant alleviating factors. It is worse with deep inspiration, cough, and movement. Additionally he has noticed an increasing in lower extremity edema. He denies presyncope, syncope, palpitations, sweats, nausea, and vomiting with the pain however he did have an episode of emesis yesterday afternoon. On arrival to the emergency department his blood pressure was 214/124 and his initial troponin was elevated 0.145. His EKG was personally reviewed and demonstrated a sinus tachycardia with a normal axis and no acute ST segment changes. His chest x-ray showed cardiomegaly with pulmonary vascular congestion small to moderate size bilateral pleural effusions. With further questioning he does state compliance with dialysis however over the past 2 weeks he has not been able to get down to dry weight. Later patient reported to have missed a Wednesday dialysis session and believe this was what was causing his shortness of breath. Nephrology was consulted and the patient had hemodialysis. He had an echocardiogram which showed normal EF with pulmonary hypertension. During this hospitalization patient reported he was diagnosed with c. diff while at home, so oral vancomycin was continued while inpatient and this was continued at discharge. After hemodialysis for a few days the patient was able to titrate his oxygen from 4LPM back to his baseline home oxygen of 2LPM. Patient discharged to home. Status at Discharge Func
[2021-05-21] MEDS: FLUTICASONE PROPIONATE 0.05% NA SPR 16 GM BTL (*BKC) 1 SPRAY NASAL (16:51)
[2021-05-21] MEDS: levETIRAcetam 500 MG TABLET BY MOUTH (16:55)
[2021-05-21 16:58] LABS: Glucose Point of Care 165 mg/dl (65-105)
--- NOTE | 2021-05-21 19:23 | PC.NURSE ---
Patient discharged to home, discharge instructions signed at 1830. IV removed. Patient awaiting ride.
[2021-05-22 19:54] LABS: Hepatitis B Core Ab Total Nonreactive (Nonreactive)
== END 2021-05-21 19:25 | disposition home health service (06) | DRG 640 ==
LOC: ANHED 15:33 → ANHIMU 17:42
PROVIDERS: Internal Medicine Nephrology; Physician Assistant; Admitting Provider Internal Medicine; Emergency Provider Emergency Medicine; PCP Physician Assistant; Visit Provider Family Medicine
DX: E87.79 Other fluid overload (principal); N18.6 End stage renal disease; I12.0 Hypertensive chronic kidney disease with stage 5 chronic kidney disease or end stage renal disease; J90 Pleural effusion, not elsewhere classified; J96.10 Chronic respiratory failure, unspecified whether with hypoxia or hypercapnia; F41.8 Other specified anxiety disorders; E10.22 Type 1 diabetes mellitus with diabetic chronic kidney disease; D64.9 Anemia, unspecified; N25.0 Renal osteodystrophy; J45.909 Unspecified asthma, uncomplicated; E03.9 Hypothyroidism, unspecified; R79.89 Other specified abnormal findings of blood chemistry; E87.5 Hyperkalemia; Z99.2 Dependence on renal dialysis; Z90.49 Acquired absence of other specified parts of digestive tract; Z87.891 Personal history of nicotine dependence; I27.20 Pulmonary hypertension, unspecified
CPT/HCPCS: 36415; 71045; 78580; 80048; 80053; 80164; 80185; 82948; 83036; 83735; 84100; 84484; 85025; 85027; 86704; 86706; 87340; 93005; 93306; 93970; 96372; 96374; 96375; 96376; 99285; A9270; A9540; G0257; G0378; J1170; J1644; J1815; J1940; J2270; J2405; J2550; J7030; Q5105

== ENCOUNTER 2021-05-28 14:34 | Emergency (ER) | payer MEDICARE, MEDICAID, SELFPAY ==
[2021-05-28 15:02] VITALS: BP 155/84; PULSE 91; RESP 18; TEMP 36.8; O2SAT 100
[2021-05-28 15:28] LABS: Basophils Percent Auto 0.6 % (0.2-1.2); Eosinophils Absolute Auto 0.4 K/mm3 (0-0.3); Eosinophils Percent Auto 5.1 % (0-4.4); Hematocrit 25.4 % (42.0-52.0); Hemoglobin 7.7 g/dL (14.0-18.0); Immature Granulocyte Absolute 0.05 K/mm3 (0.00-0.031); Immature Granulocyte Percent A 0.7 % (0-0.5); Lymphocytes Absolute Auto 0.58 K/mm3 (0.9-3.2); Lymphocytes Percent Auto 8.4 % (18.3-44.2); Mean Corpuscular HGB Conc 30.3 g/dl (32-36); Mean Corpuscular Hemoglobin 30.9 pg (26-34); Mean Platelet Volume 10.2 fl (7.4-10.4); Monocytes Absolute Auto 0.6 K/mm3 (0.1-0.6); Monocytes Percent Auto 9.2 % (2.6-8.5); Neutrophils Absolute Auto 5.3 K/mm3 (1.3-6.7); Platelet Count Result 146 k/mm3 (150-375); Red Blood Count 2.49 M/mm3 (4.6-6.20); Red Cell Distribution Width 16.7 % (11.5-14.5); White Blood Count 6.9 K/mm3 (4.5-10.0)
[2021-05-28 15:38] LABS: Alanine Aminotransferase 39 U/L (4-50); Albumin Level 4.1 g/dL (3.5-5.1); Alkaline Phosphatase 223 U/L (38-126); Anion Gap 10 mmol/L (8-16); Aspartate Amino Transferase 39 U/L (17-59); Bilirubin,Total 0.6 mg/dL (0.2-1.3); Blood Urea Nitrogen 29 mg/dL (9-20); Calcium 8.8 mg/dL (8.4-10.2); Carbon Dioxide 35 mmol/L (22-30); Chloride 89 mmol/L (98-107); Estimated Glomerular Filt Rate 18; Glucose 283 mg/dL (65-110); Lipase 122 U/L (23-300); Potassium 4.6 mmol/L (3.4-5.0); Sodium 134 mmol/L (137-145)
[2021-05-28 15:39] LABS: INR 1.1; Prothrombin Time 13.7 Seconds (11.1-14.7)
[2021-05-28 15:40] LABS: Partial Thromboplastin Time 32.2 SECONDS (22.3-36.8)
--- NOTE | 2021-05-28 15:54 | ED.GENADULT ---
HPI - General Adult General Chief complaint: Nausea/Vomiting/Diarrhea Stated complaint: diarrhea Time Seen by Provider: 05/28/21 15:21 History of Present Illness HPI narrative: Patient is a 40-year-old male with a history of end-stage renal disease (MWF dialysis), heart failure, diabetes, hypertension, who presents via EMS from hemodialysis today for evaluation of diarrhea over the past 2 months. Patient states the diarrhea has been nearly constant and unrelenting over the past 2 months, but he denies any blood or mucus noted in his stool. Additionally reports some intermittent abdominal cramping for the past 2 months, and states the skin around his rectal region is sore. Patient was recently hospitalized for heart failure exacerbation, during which he was taking oral vancomycin for a reportedly positive C. difficile stool study. Patient had stool studies repeated during his hospitalization at [facility], which came back negative. He denies fevers, chest pain, shortness of breath. Received all but 20 minutes of his dialysis treatment today. Related Data Home Medications Medication Instructions Recorded Confirmed albuterol sulfate [Ventolin HFA] 2 puff INHALATION Q6H PRN 11/04/19 05/18/21 hydralazine 100 mg PO TID 11/04/19 05/18/21 terazosin 2 mg PO BID 11/04/19 05/18/21 Lantus U-100 Insulin 15 unit SUBCUT QAM 06/01/20 05/18/21 amitriptyline 50 mg PO HS 06/01/20 05/18/21 calcium acetate 2 tablet PO TIDWMEAL 06/01/20 05/18/21 escitalopram oxalate 20 mg PO DAILY #0 06/01/20 05/18/21 famotidine 20 mg PO BID 06/01/20 05/18/21 insulin lispro [Humalog U-100 See Rx Instructions .ROUTE .COMPLEX 06/02/20 05/18/21 Insulin] phenytoin sodium extended 100 mg PO TID 06/02/20 05/18/21 [Dilantin Extended] aspirin 81 mg PO DAILY 04/14/21 05/18/21 atorvastatin 40 mg PO HS 04/14/21 05/18/21 carvedilol 25 mg PO BID 04/14/21 05/18/21 clonidine HCl 0.3 mg PO BID 04/14/21 05/18/21 levetiracetam See Rx Instructions .ROUTE .COMPLEX 04/14/21 05/18/21 levothyroxine 50 mcg PO DAILY 04/14/21 05/18/21 sevelamer carbonate [Renvela] 800 mg PO TIDWM 04/14/21 05/18/21 Allergies Allergy/AdvReac Type Severity Reaction Status Date / Time fluorescein Allergy Severe HIVES, BP Verified 05/18/21 12:12 DROPPED, SWELLING TONGUE Penicillins Allergy Unknown Unknown Verified 05/18/21 12:12 Sulfa (Sulfonamide Allergy Unknown Unknown Verified 05/18/21 12:12 Antibiotics) chlorpromazine Allergy Rash Verified 05/18/21 12:12 [From Thorazine] iohexol Allergy Anaphylaxis Verified 05/19/21 02:28 [From contrast - CT, X-RAY] valproic acid Allergy Unknown Verified 05/18/21 12:12 divalproex sodium AdvReac Confusion Verified 05/18/21 12:12 [From Depakote] Review of Systems Review of Systems: Gen.: Denies fevers or chills Eyes: Denies eye pain or visual change ENT: Denies congestion Respiratory: Denies shortness of breath or cough CV: Denies chest pain or palpitations GI: Reports diarrhea and abdominal pain. denies nausea. denies burning, urgency, frequency or hematuria Musculoskeletal: Denies back pain or muscle pain Neuro: Denies numbness, tingling, weakness or focal weakness Skin: Denies rash Except as documented, all other systems reviewed and negative All systems reviewed & are unremarkable except as noted in HPI and below PMFSH Past Medical History Medical History Anemia requiring transfusions Anxiety and depression Asthma End stage renal disease on dialysis Erythropoietin deficiency anemia Hypertension Migraines Renal osteodystrophy Seizure disorder (10/2019) Type 1 diabetes Diagnosed at the age of 14. Hemoglobin A1c was 6.6% on 11/06/2020. Surgical History Surgical History History of appendectomy History of cholecystectomy Previous back surgery Status post creation of arteriovenous fistula Statu
[2021-05-28 16:00] VITALS: BP 150/84; PULSE 88; RESP 16; O2SAT 100
[2021-05-28] MEDS: DIPHENOXYLATE/ATROPINE (*CRX) 2.5 MG TABLET 2 TABLET PO (16:31)
[2021-05-28 16:48] VITALS: BP 142/78; PULSE 92; RESP 20; TEMP 36.3; O2SAT 100
--- NOTE | 2021-05-28 16:50 | PC.NURSE ---
FATHER CALLED AND REPORTS HE WILL COME AND PICK PT UP. HE REPORTS HE IS IN [place] AND WILL BE HERE SOON HE CAN
== END 2021-05-28 17:46 | disposition home or self-care (01) ==
PROVIDERS: Emergency Medicine; Emergency Provider Family Medicine; PCP Physician Assistant
DX: R19.7 Diarrhea, unspecified (principal)
CPT/HCPCS: 36415; 80053; 83690; 85025; 85610; 85730; 99283; A9270

== ENCOUNTER 2021-06-06 18:00 | Inpatient (IN) | payer MEDICARE, MEDICAID, SELFPAY ==
--- NOTE | ~2021-06-06 | XR_ITS ---
XR chest 2V DATE: 06/06/2021 18:47 INDICATION: Chest pain TECHNIQUE: AP and lateral views COMPARISON: 05/18/2021 portable AP chest FINDINGS: There is cardiomegaly. There is pulmonary vascular congestion and redistribution. There are bilateral mid and particularly lower lung infiltrates and atelectasis and moderate bilateral pleural effusions. There is prominence of the fissures consistent with subpleural edema. Tod B-lines are noted consistent with interstitial pulmonary edema. Diffuse osteopenia. IMPRESSION: Congestive heart failure, pulmonary edema, bilateral pleural effusions, mildly improved s arminda 05/18/2021 Reviewed, dictated and finalized at location A. IMPRESSION: Congestive heart failure, pulmonary edema, bilateral pleural effusi ons, mildly improved since 05/18/2021
--- NOTE | ~2021-06-06 | XR_ITS ---
EXAMINATION: XR barium swallow modified EXAM DATE: 06/10/2021 10:43 INDICATION: Dysphagia. TECHNIQUE: Modified barium esophagram was performed by speech pathologist with radiologist Dr. Billy Marin present to administered fluoroscopy. Speech pathologist administered barium in varying consis tencies as per speech pathologist documentation. This was recorded on tape. There was total fluorosc opic time of 0.5 minutes. The DAP for this procedure was 0.3 Gycm2. A total of 2 images sent to PAC S from the exam. FINDINGS: Oral stage: Adequate function. Pharyngeal phase: Adequate function. Laryngeal penetration: None. Aspiration: None. Laryngeal sensitivity: Present. IMPRESSION: Normal modified esophagram exam. Please refer to speech pathologist findings and specifi c feeding recommendations. Reviewed, dictated and finalized at location A. IMPRESSION: Normal modified esophagram exam. Please refer to speech pathologis t findings and specific feeding recommendations.
--- NOTE | ~2021-06-06 | XR_ITS ---
EXAMINATION: XR lumbar spine 2-3V DATE: 06/09/2021 16:37 INDICATION: Chronic back pain. TECHNIQUE: 3 views of lumbar spine were obtained. COMPARISON: CT abdomen and pelvis 12/01/2015 FINDINGS: Bone alignment is normal. Vertebral body heights are normal. There are changes of anterior and posterior fusion procedures at L5-S1 with interbody device and right-sided pedicle screws. There is multilevel mild facet joint osteoarthritis. There are surgical clips in right abdomen. Partially v isualized is a hip arthroplasty. IMPRESSION: 1. Anterior and posterior fusion procedures at L5-S1. Reviewed, dictated and finalized at location B.
[2021-06-06 18:05] VITALS: BP 177/99; PULSE 102; RESP 20; TEMP 36.4; O2SAT 94
--- NOTE | 2021-06-06 18:34 | ECG_ITS ---
Measurements Intervals [place] Rate: 95 P: 78 MD: 152 QRS: 31 QRSD: 102 T: 72 QT: 376 QTc: 474 Interpretive Statements SINUS RHYTHM LEFT ATRIAL ENLARGEMENT [-0.15mV P-WAVE IN V1/V2] LOW QRS VOLTAGE IN EXTREMITY LEADS [QRS DEFLECTION < 0.5 mV IN LIMB LEADS] ABNORMAL ECG COMPARED TO ECG 05/18/2021 12:10:38 SINUS RHYTHM NOW PRESENT Electronically Signed On 06-07-2021 11:43:21 CDT by Juan Manuel Dumont M.D.
[2021-06-06 18:53] LABS: Basophils Percent Auto 0.3 % (0.2-1.2); Eosinophils Absolute Auto 0.6 K/mm3 (0-0.3); Hematocrit 25.6 % (42.0-52.0); Hemoglobin 8.2 g/dL (14.0-18.0); Immature Granulocyte Absolute 0.03 K/mm3 (0.00-0.031); Immature Granulocyte Percent A 0.4 % (0-0.5); Lymphocytes Absolute Auto 0.66 K/mm3 (0.9-3.2); Lymphocytes Percent Auto 8.3 % (18.3-44.2); Mean Corpuscular Hemoglobin 30.9 pg (26-34); Mean Corpuscular Volume 96.6 fl (80-100); Mean Platelet Volume 9.7 fl (7.4-10.4); Monocytes Absolute Auto 0.6 K/mm3 (0.1-0.6); Neutrophils Absolute Auto 6.1 K/mm3 (1.3-6.7); Platelet Count Result 221 k/mm3 (150-375); Red Blood Count 2.65 M/mm3 (4.6-6.20); Red Cell Distribution Width 16.8 % (11.5-14.5)
--- NOTE | 2021-06-06 19:27 | ED.CHESTPAIN ---
HPI - Chest Pain General Chief Complaint: Chest Pain Stated Complaint: weakness & chest pain after dialysis Time Seen by Provider: 06/06/21 18:58 Source: patient Mode of arrival: ambulatory Limitations: no limitations History of Present Illness HPI narrative: 40-year-old male with extensive medical problems presents emergency room secondary shortness of breath and chest pain. Patient has multiple medical issues including diabetes, hypertension, end-stage renal disease on hemodialysis, congestive heart failure. He is on oxygen continuously secondary to fluid buildup in my lungs . He goes to dialysis on Wednesday, Wednesday, Wednesday schedule. He has been having a lot of diarrhea and he missed his dialysis session on Wednesday however he did go to dialysis today. He states that despite that he feels extremely fluid overloaded extremely short of breath and now he is having pressure in his chest. Describes it as a heaviness in the midportion of his chest. He is trying to get into a renal and pancreatic transplant program. He did have a cardiac catheterization performed at [facility] about 4 to 5 months ago which showed no occlusive coronary artery disease at that time. He did not take any of his medications today. Related Data Home Medications Medication Instructions Recorded Confirmed albuterol sulfate [Ventolin HFA] 2 puff INHALATION Q6H PRN 11/04/19 05/18/21 hydralazine 100 mg PO TID 11/04/19 05/18/21 terazosin 2 mg PO BID 11/04/19 05/18/21 Lantus U-100 Insulin 15 unit SUBCUT QAM 06/01/20 05/18/21 amitriptyline 50 mg PO HS 06/01/20 05/18/21 calcium acetate 2 tablet PO TIDWMEAL 06/01/20 05/18/21 escitalopram oxalate 20 mg PO DAILY #0 06/01/20 05/18/21 famotidine 20 mg PO BID 06/01/20 05/18/21 insulin lispro [Humalog U-100 See Rx Instructions .ROUTE .COMPLEX 06/02/20 05/18/21 Insulin] phenytoin sodium extended 100 mg PO TID 06/02/20 05/18/21 [Dilantin Extended] aspirin 81 mg PO DAILY 04/14/21 05/18/21 atorvastatin 40 mg PO HS 04/14/21 05/18/21 carvedilol 25 mg PO BID 04/14/21 05/18/21 clonidine HCl 0.3 mg PO BID 04/14/21 05/18/21 levetiracetam See Rx Instructions .ROUTE .COMPLEX 04/14/21 05/18/21 levothyroxine 50 mcg PO DAILY 04/14/21 05/18/21 sevelamer carbonate [Renvela] 800 mg PO TIDWM 04/14/21 05/18/21 Allergies Allergy/AdvReac Type Severity Reaction Status Date / Time fluorescein Allergy Severe HIVES, BP Verified 06/06/21 18:12 DROPPED, SWELLING TONGUE Penicillins Allergy Unknown Unknown Verified 06/06/21 18:12 Sulfa (Sulfonamide Allergy Unknown Unknown Verified 06/06/21 18:12 Antibiotics) chlorpromazine Allergy Rash Verified 06/06/21 18:12 [From Thorazine] iohexol Allergy Anaphylaxis Verified 06/06/21 18:12 [From contrast - CT, X-RAY] valproic acid Allergy Unknown Verified 06/06/21 18:12 divalproex sodium AdvReac Confusion Verified 06/06/21 18:12 [From Depakote] Review of Systems Review of Systems: CONSTITUTIONAL: Denies fever, chills, or sweats. EYES: Denies visual changes, redness, or discharge. ENT: Denies rhinorrhea, congestion, sore throat, or otalgia. CARDIOVASCULAR: Complaining of chest pressure with no palpitations. RESPIRATORY: Patient is having significant shortness of breath with any movement GASTROINTESTINAL: Denies abdominal pain, nausea, vomiting, or diarrhea. GENITOURINARY: Denies dysuria or hematuria. SKIN: Denies rash or itching. MUSCULOSKELETAL: Denies back pain, joint pain, or myalgia. Swelling to his legs noted NEUROLOGIC: Denies headache, numbness, or weakness. PSYCHIATRIC: Denies anxiety or depression. [facility] Past Medical History Medical History Anemia requiring transfusions Anxiety and depression Asthma End stage renal disease on dialysis Erythropoietin deficiency anemia Hypertension Migraines Renal osteodystrophy Seizure disorder (10/2019) Type 1 diabetes Diagnosed at the age of 14. H
--- NOTE | 2021-06-06 19:27 | PC.NURSE ---
Patient report given to GISELLE Wall. All questions answered and care of patient transferred.
[2021-06-06 19:40] LABS: INR 1.1
[2021-06-06 19:41] LABS: Partial Thromboplastin Time 32.7 SECONDS (22.3-36.8)
--- NOTE | 2021-06-06 19:41 | PC.NURSE ---
Report received from Samanta RN and care of pt assumed at this time.
[2021-06-06 19:46] LABS: Alanine Aminotransferase 29 U/L (4-50); Alkaline Phosphatase 229 U/L (38-126); Anion Gap 13 mmol/L (8-16); Aspartate Amino Transferase 36 U/L (17-59); Bilirubin,Total 0.8 mg/dL (0.2-1.3); Blood Urea Nitrogen 52 mg/dL (9-20); Calcium 8.7 mg/dL (8.4-10.2); Carbon Dioxide 32 mmol/L (22-30); Chloride 90 mmol/L (98-107); Estimated CRCL calculation 17 ml/min; Estimated Glomerular Filt Rate 10; Glucose 285 mg/dL (65-110); Lipase 58 U/L (23-300); Potassium 4.6 mmol/L (3.4-5.0); Sodium 135 mmol/L (137-145)
[2021-06-06 19:48] VITALS: BP 185/65; PULSE 96; RESP 12; O2SAT 100
[2021-06-06] MEDS: LABETALOL HCL INJ 100 MG/20 ML VIAL 20 MG IV PUSH (19:49)
[2021-06-06 19:54] LABS: NT Pro B Type Natriuretic Pept > 35000 pg/mL (5-100)
[2021-06-06 20:08] LABS: Troponin I 0.159 ng/mL (0.000-0.034)
[2021-06-06 21:13] LABS: SARS-CoV-2 RNA PCR Negative
--- NOTE | 2021-06-06 21:16 | PM.IMHP ---
H&P: HPI History of Present Illness Date/Time: 06/06/21 21:16 Chief Complaint: Chest pain. Narrative: This is a 40-year-old male with past medical history significant for end-stage renal disease on hemodialysis, hypertension, type 2 diabetes mellitus, hypothyroidism, peripheral neuropathy, anemia of chronic disease, seizure disorder. Patient presents to emergency room due to chest pain after dialysis according to patient's he has been having diarrhea for 2 weeks now on and has skipped dialysis. Patient denies any shortness of breath any cough sputum production fevers rigors chills nausea vomiting or abdominal pain he complains about overall generalized swelling. Preliminary workup was significant for elevated troponin. Patient has been admitted for further evaluation management and treatment. Review of Systems Review of Systems: Chest pain and swelling. Constitutional: Constitutional: Denies chills, Reports fatigue, Denies fever(s), Reports lethargy, Denies malaise, Denies night sweats and Reports weakness Eyes: Eyes: Denies change in vision ENT: Denies dysphagia, Denies vertigo, Denies dizziness, Denies nasal congestion, Denies nasal discharge, Denies nasal obstruction and Denies odynophagia Cardiovascular: Cardiovascular: Reports chest pain, Reports pedal edema, Reports edema, Reports leg edema, Denies lightheadedness, Denies radiating jaw, neck or arm pain, Denies palpitations, Denies dyspnea, Denies dyspnea on exertion, Denies orthopnea and Denies paroxysmal nocturnal dyspnea Respiratory: Respiratory: Denies cough Gastrointestinal: Gastrointestinal: Denies abdominal pain, Denies dyspepsia, Denies heartburn, Reports diarrhea, Denies nausea and Denies vomiting Genitourinary: Genitourinary: Denies dysuria Musculoskeletal: Musculoskeletal: Denies back pain, Denies arthralgias and Denies joint swelling Integumentary/Breasts: Skin/Breast: Denies rash Neurologic: Denies focal weakness and Denies Sensory deficit (Neuro) Psychiatric: Psychiatric: Reports no additional psychiatric complaints Endocrine: Endocrine: Denies cold intolerance, Denies fatigue, Denies flushing, Denies heat intolerance, Denies polyphagia, Denies polydipsia and Denies palpitations Hematologic/Lymphatic: Hematologic/Lymphatic: Reports no additional hematologic/lymphatic complaints and Reports as per HPI Allergic/Immunologic: Allergic/Immunologic: Reports no additional allergic/immunologic complaints and Reports as per HPI [facility] Past Medical History Medical History (Updated 06/07/21 @ 04:06 by Pascale Guillen MD) Anemia requiring transfusions Anxiety and depression Asthma End stage renal disease on dialysis Erythropoietin deficiency anemia Hypertension Migraines Renal osteodystrophy Seizure disorder (10/2019) Type 1 diabetes Diagnosed at the age of 14. Hemoglobin A1c was 6.6% on 11/06/2020. Surgical History Surgical History History of appendectomy History of cholecystectomy Previous back surgery Status post creation of arteriovenous fistula Status post insertion of dialysis catheter Status post LASIK surgery of both eyes Family History Family History Mother Diabetes mellitus Cerebrovascular accident Father Hypertension Social History Social History Social History: The patient lives with his . He is disabled. He has no biological children but his has 1 child that he is raising. Former smoker. He denies any alcohol marijuana or illicit drug use. He designates his , Dorothea Zuniga, as his surrogate decision maker. Code status: Full code. Smoking packs per day: 0.25 Smoking cigarettes per day: 5.0 Years smoked: 4 Smoking pack-years: 1.00 Smoking status: Former smoker Tobacco type: cigarettes Smokeless tobacco user: chewing tobacco Second hand tobac
[2021-06-06 21:19] VITALS: BP 183/86; PULSE 88; RESP 12; O2SAT 100
[2021-06-06] MEDS: MORPHINE SULFATE (*CRX) 4 MG/ML INJ IV PUSH (21:26)
[2021-06-06] MEDS: ASPIRIN 81 MG CHEWABLE TABLET 324 MG PO (21:26)
[2021-06-06] MEDS: FUROSEMIDE INJ 100 MG/10 ML VIAL 80 MG IV PUSH (21:26)
--- NOTE | 2021-06-06 21:30 | PC.NURSE ---
[facility] DR PEREZ TO CHANGE PATIENT FROM MT TO IMU AT THIS TIME.
--- NOTE | 2021-06-06 22:41 | ADMGEN ---
This patient, Ari Zuniga, was admitted to IMU Room 203-01 on 06/06/21 at 2240. Patient/family oriented to hospital policies and general routines including ID bracelet, bed and alarms, visiting hours, pain management, procedures, bathroom and other care routines, personal items, smoking policy, room service/diet, and visiting hours. Information on how to activate the Rapid Response Team has been discussed. Patient/Family are encouraged to report perceived risks to care and to ask questions if they do not understand what they are told or what they should do.
[2021-06-06 22:45] VITALS: PULSE 93; RESP 20; O2SAT 98
[2021-06-06 22:46] VITALS: PULSE 95
[2021-06-06 22:48] VITALS: BP 134/82; PULSE 93; RESP 20; TEMP 36.6; O2SAT 98
--- NOTE | 2021-06-06 22:58 | ADMGEN ---
This patient, Ari Zuniga, was admitted to IMU Room 203-01. Patient/family oriented to hospital policies and general routines including ID bracelet, bed and alarms, visiting hours, pain management, procedures, bathroom and other care routines, personal items, smoking policy, room service/diet, and visiting hours. Information on how to activate the Rapid Response Team has been discussed. Patient/Family are encouraged to report perceived risks to care and to ask questions if they do not understand what they are told or what they should do.
[2021-06-06 23:08] LABS: Troponin I 0.166 ng/mL (0.000-0.034)
[2021-06-07] VITALS (19 sets, daily range): BP systolic 140–157; BP diastolic 51–93; PULSE 72–96; RESP 14–20; TEMP 35.8–36.4; O2SAT 95–99; BMI 26.4
[2021-06-07] MEDS: HYDROmorphone HCL INJ (*CRX) 1 MG/ML SYR IV PUSH ×7 (00:18→18:59)
[2021-06-07] MEDS: LEVOTHYROXINE SODIUM 50 MCG TABLET PO (06:43)
[2021-06-07] MEDS: VALPROIC ACID 250 MG CAPSULE PO ×3 (06:43→22:24)
--- NOTE | 2021-06-07 08:07 | PM.IMPN ---
Progress Note: A&P Assessment and Plan (1) End-stage renal disease on hemodialysis: Code(s): N18.6 - End stage renal disease; Z99.2 - Dependence on renal dialysis Status: Acute Assessment and Plan: Admit to telemetry unit Nephrology consult 06/07/21: - Order placed for Nephrology consult as it was not present. - Continue Telemetry - Accurate I&O. - Daily weight - Renal/diabetic diet - Dialyzed yesterday, will dialyze again when [facility] can get a dialysis nurse in house. They apparently cannot today (2) Volume overload: Qualifiers: Hypervolemia type: unspecified Qualified Code(s): E87.70 - Fluid overload, unspecified Code(s): E87.70 - Fluid overload, unspecified Status: Acute Assessment and Plan: Patient has skipped several treatments of dialysis Continue to monitor 06/07/21: - Nephrology is consulted and appreciate their co-management of patient for HD. - Continue Lasix. - Monitor labs and VS. - Pt. is highly non-compliant. He is counseled for his non-compliance. (3) Acute exacerbation of congestive heart failure: Qualifiers: Heart failure type: unspecified Qualified Code(s): I50.9 - Heart failure, unspecified Code(s): I50.9 - Heart failure, unspecified Status: Acute Assessment and Plan: Patient with chronic elevation of brain natriuretic peptide Not different to prior admissions 06/07/21: - Again secondary to his missing HD multiple sessions. - Appreciate Nephrology and Cardiology inputs for continued management. (4) Type 1 diabetes: Qualifiers: Diabetes mellitus complication status: with other specified complication Qualified Code(s): E10.69 - Type 1 diabetes mellitus with other specified complication Code(s): E10.9 - Type 1 diabetes mellitus without complications Status: Chronic Assessment and Plan: Continue home meds Continue insulin Accu-Cheks AC and HS 06/07/21: - Fasting glucose this AM is >400. SSI dose changed to high dosing and his Lantus 15 units at AM is changed to 22 units HS. - Continue hypoglycemic panel. - Continue glucose checks AC and HS. - Renal/diabetic diet. (5) Seizure disorder: Onset Date: 10/2019 Code(s): G40.909 - Epilepsy, unspecified, not intractable, without status epilepticus Status: Inactive Assessment and Plan: Seizure-free Continue home meds (6) Elevated troponin: Code(s): R77.8 - Other specified abnormalities of plasma proteins Status: Acute Assessment and Plan: Patient with chronic elevation of troponins. 06/07/21: - Elevation is chronic in nature and is likely due to heart strain from missing several days of dialysis. - Cardiology has been consulted and agree that his elevated trop is not likely due to ACS, but instead from his renal disease. (7) Diarrhea: Qualifiers: Diarrhea type: unspecified type Qualified Code(s): R19.7 - Diarrhea, unspecified Code(s): R19.7 - Diarrhea, unspecified Status: Acute Assessment and Plan: 06/07/21: - Stool culture, Cryptosporidium, C-diff, and Giardia ordered. - Monitor labs and VS. - Accurate I&O ordered. - Will defer any anti-diarrheals until culture is obtained. (8) Non compliance with medical treatment: Code(s): Z91.19 - Patient's noncompliance with other medical treatment and regimen Status: Acute Assessment and Plan: 06/07/21: - Pt. is highly non-compliant with medical treatments such as dialysis and his medications, and has been admitted multiple times for the same complaint. He was counseled for this. Time Spent With Patient Time with patient: 15 - 25 minutes Subjective Date/time seen: 06/07/21 08:07 This pt. was examined at the bedside in interval assessment after being admitted to the hospital for chest pain, again missing dialysis and also for having diarrhea for 2 weeks. He has been admitted
[2021-06-07 08:16] LABS: Glucose Point of Care 447 mg/dl (65-105)
[2021-06-07] MEDS: ESCITALOPRAM OXALATE 10 MG TABLET 20 MG PO (08:30)
[2021-06-07] MEDS: minoxidiL 2.5 MG TABLET PO ×2 (08:30→18:09)
[2021-06-07] MEDS: VITAMIN B CMPLX/VIT C/FOLIC AC 1 CAPSULE 1 CAP PO (08:31)
[2021-06-07] MEDS: PHENYTOIN SODIUM 100 MG EXTENDED RELEASE CAP PO ×3 (08:31→20:26)
[2021-06-07] MEDS: FAMOTIDINE 20 MG TABLET PO ×2 (08:31→18:11)
[2021-06-07] MEDS: hydrALAZINE HCL 50 MG TABLET 100 MG PO ×3 (08:32→18:10)
[2021-06-07] MEDS: CALCIUM ACETATE 667 MG TABLET 1334 MG PO ×3 (08:32→18:11)
[2021-06-07] MEDS: carvediloL 25 MG TABLET PO ×2 (08:33→20:25)
[2021-06-07] MEDS: TERAZOSIN HCL 1 MG CAPSULE 2 MG PO ×2 (08:33→18:12)
[2021-06-07] MEDS: FUROSEMIDE 80 MG TABLET PO (08:34)
[2021-06-07] MEDS: ASPIRIN 81 MG CHEWABLE TABLET PO (08:47)
[2021-06-07] MEDS: INSULIN ASPART (*BKC) 100 UNITS/ML SUB-Q ×2 (08:47→13:12)
[2021-06-07] MEDS: cloNIDine HCL 0.1 MG TABLET 0.3 MG PO ×2 (08:47→18:08)
[2021-06-07] MEDS: INSULIN GLARGINE (*BKC) 100 UNITS/ML 22 UNITS SUB-Q (09:52)
[2021-06-07] MEDS: HEPARIN SODIUM 5,000 UNITS/ML VIAL 5000 UNITS SUB-Q ×2 (09:53→18:12)
--- NOTE | 2021-06-07 10:20 | PM.CNCAR ---
Assessment and Plan Assessment and plan (1) Elevated troponin: Code(s): R77.8 - Other specified abnormalities of plasma proteins Status: Acute Assessment and Plan: Mildly elevated troponins are not related to acute coronary syndrome. related to his end-stage renal disease. (2) Chest pain at rest: Code(s): R07.9 - Chest pain, unspecified Status: Acute Assessment and Plan: Non coronary chest pain. Probably related to volume overload plus/minus GI. Less likely pericarditic. Will request records from [facility] regarding most recent stress test (3) Volume overload: Qualifiers: Hypervolemia type: unspecified Qualified Code(s): E87.70 - Fluid overload, unspecified Code(s): E87.70 - Fluid overload, unspecified Status: Acute Assessment and Plan: Patient has volume overload likely from some missed dialysis/end-stage renal disease. I do not think that is true congestive heart failure. Most recent echocardiogram shows normal diastolic and systolic function. (4) End-stage renal disease on hemodialysis: Code(s): N18.6 - End stage renal disease; Z99.2 - Dependence on renal dialysis Status: Acute Assessment and Plan: Followed by Dr. Carmichael (5) Pericardial effusion: Code(s): I31.3 - Pericardial effusion (noninflammatory) Status: Acute Assessment and Plan: Small effusion noted by echocardiogram few weeks ago. No evidence of tamponade (6) Pacemaker: Code(s): Z95.0 - Presence of cardiac pacemaker Status: Acute Assessment and Plan: Followed in [facility] (7) Hypertension associated with diabetes: Code(s): E11.59 - Type 2 diabetes mellitus with other circulatory complications; I15.2 - Hypertension secondary to endocrine disorders Status: Acute Assessment and Plan: Continue current meds (8) Pulmonary hypertension: Code(s): I27.20 - Pulmonary hypertension, unspecified Status: Acute Assessment and Plan: Moderate History of Present Illness History of Present Illness Consult date/time: 06/07/21 10:20 Requesting physician: Pascale Guillen MD Consult reason: chest pain Reason For Visit: chest pain, CHF, ESRD on HD Narrative: Date of service: 06/07/2021 Reason for consultation: Chest pain, elevated troponins, CHF Requesting provider: Dr. Guillen History: Patient is 40 years old who has end-stage renal disease secondary to poorly controlled diabetes, hypertension. He does have a pacemaker and is followed in [facility]. He states that he had a stress test within the past year which was normal as he is on the renal transplant list. He states that yesterday he started to have some diarrhea while in dialysis. He went home and then developed some anterior chest discomfort which she describes as sharp in the middle of his chest. Did not radiate to his arm back neck or jaw. He does have some shortness of breath as of late which is more prominent in he thinks is related to excess fluid from his ESRD. He continues to have discomfort this morning. It has not gone away. Troponins are minimally elevated but there is no significant rise or fall. He denies any syncope, presyncope, paroxysmal nocturnal dyspnea, orthopnea, edema or palpitations. Review of Systems Review of Systems: All systems reviewed & are unremarkable except as noted in HPI and below Constitutional: Constitutional: Denies weakness Eyes: Eyes: Denies blurry vision ENT: Reports Normal hearing present Cardiovascular: Cardiovascular: Reports chest pain Respiratory: Respiratory: Reports dyspnea Gastrointestinal: Gastrointestinal: Denies abdominal pain Genitourinary: Genitourinary: Denies hematuria and Denies flank pain Musculoskeletal: Musculoskeletal: Denies neck pain Integumentary/Breasts: Skin/Breast: Reports dry skin Neurologic: Denies headache(s) Psychiatric: Psychiatric: Denies a
--- NOTE | 2021-06-07 10:24 | PM.CNNEP ---
Assessment and Plan Additional Plan 1. the patient has end-stage renal disease. This is due to diabetes and hypertension. He had his regular dialysis yesterday. He is due for another treatment Wednesday. 2. The paitent has chest pain. This sounds musculoskeletal. He is getting evaluation by the cardiac team. 3. the patient has volume overload. This is chronic and stable. I am going to change his Lasix to IV to see if we can get his kidneys to help us. Dialysis is unavailable at this hospital today. We will do him on Wednesday and possibly Wednesday if he is still here. If he just drinks less fluid than his usual 3 time a week dialysis should be able to get him to his euvolemic state within a couple of weeks. But we will do what we can while he is here. 4. Diabetes. The patient is on Accu-Cheks and sliding-scale insulin per hospitalist. 5. Renal osteodystrophy the patient will get a renal panel tomorrow to see how his phosphorus is. 6. Anemia of chronic kidney disease we can give EPO with dialysis and will check iron levels. 7. Depression the patient is on antidepressants. 8. Hypothyroidism the patient is on levothyroxine. History of Present Illness Reason for Consult Consult date: 06/07/21 Chief Complaint Chief complaint: chest pain, CHF, ESRD on HD History of Present Illness Narrative: Ari is a very pleasant 40-year-old gentleman who has multiple medical problems including end-stage renal disease on dialysis 3 times a week, diabetes, hyperlipidemia, depression, hypothyroidism, anemia of chronic kidney disease, renal osteodystrophy, migraines, asthma. The patient goes to dialysis 3 times a week. He generally gains lots and lots of fluid each time. He went to dialysis on Wednesday for his usual treatment and felt his usual self. He was 18 kg above his dry weight. They took off 4 kg which is all they can do in 1 treatment. After dialysis the patient felt better but then when he went home he started developing some chest pain. It was described as a dull pain which is constantly there. It does not wax and wane. It does not worsen with exertion or deep breath or lying down flat. It is not improved by anything. He came to the emergency room. He had x-rays done which showed some fluid in his lungs. He was admitted. He says that he is at the top of the transplant list but he is on hold right now because of his fluid issues. We have talked at length various times about how much fluid he drinks. The excessive fluid gains make it impossible for dialysis to keep up such that he is euvolemic. So for the past couple of years he has been constantly volume overloaded. He says he is coming to the realization that he does need to behave himself as far as his fluid goes. He is ready to turn over a new leaf. The patient says his sugars have been doing pretty well. He has been taking his binders he says. Review of Systems Constitutional: Constitutional: Reports no additional constitutional complaints Eyes: Eyes: Reports no additional eye complaints ENT: Reports system reviewed and no additional complaints, except as documented Cardiovascular: Cardiovascular: Reports no additional cardiovascular complaints Respiratory: Respiratory: Reports no additional respiratory complaints Gastrointestinal: Gastrointestinal: Reports no additional gastrointestinal complaints Genitourinary: Genitourinary: Reports no additional male genitourinary complaints Musculoskeletal: Musculoskeletal: Reports no additional musculoskeletal complaints Integumentary/Breasts: Skin/Breast: Reports system reviewed and no additional complaints, except as docu Neurologic: Reports system reviewed and no additional complaints, except as documented Psychiatric: Psychiatric: Reports no additional psychiatric complaints Endocrine: Endocrine: Reports no additional endocrine complaints [facility] Past Medical History Medical History (Reviewed 06/07/21 @
[2021-06-07 11:03] LABS: Iron 35 ug/dL (49-181)
[2021-06-07 11:09] LABS: Immature Reticulocyte Fraction 21.4 % (3.0-15.9); Reticulocyte Hemoglobin Conten 34.4 pg (28.2-35.7); Reticulocyte Percent 4.11 % (0.7-4.3); Reticulocytes Absolute 0.11 B/L (32.2-175.7)
[2021-06-07 11:14] LABS: Percent Iron Saturation 15 % (20-50)
[2021-06-07 12:16] LABS: Glucose Point of Care 349 mg/dl (65-105)
[2021-06-07 17:20] LABS: Glucose Point of Care 148 mg/dl (65-105)
[2021-06-07] MEDS: BUMETANIDE INJ 1 MG/4 ML VIAL 2 MG IV PUSH (18:11)
[2021-06-07 19:52] LABS: Glucose Point of Care 187 mg/dl (65-105)
[2021-06-07] MEDS: AMITRIPTYLINE HCL 25 MG TABLET 50 MG PO (20:25)
[2021-06-07] MEDS: ATORVASTATIN 40 MG TABLET PO (20:25)
[2021-06-08] VITALS (16 sets, daily range): BP systolic 108–134; BP diastolic 40–81; PULSE 72–87; RESP 14–22; TEMP 35.6–36.1; O2SAT 92–97
[2021-06-08] MEDS: HEPARIN SODIUM 5,000 UNITS/ML VIAL 5000 UNITS SUB-Q ×3 (01:13→17:39)
[2021-06-08] MEDS: HYDROmorphone HCL INJ (*CRX) 1 MG/ML SYR IV PUSH ×3 (02:13→08:36)
[2021-06-08 04:28] LABS: Basophils Percent Auto 0.5 % (0.2-1.2); Eosinophils Absolute Auto 0.9 K/mm3 (0-0.3); Eosinophils Percent Auto 15.7 % (0-4.4); Hematocrit 24.2 % (42.0-52.0); Hemoglobin 7.7 g/dL (14.0-18.0); Immature Granulocyte Absolute 0.04 K/mm3 (0.00-0.031); Immature Granulocyte Percent A 0.7 % (0-0.5); Lymphocytes Absolute Auto 0.92 K/mm3 (0.9-3.2); Lymphocytes Percent Auto 15.7 % (18.3-44.2); Mean Corpuscular HGB Conc 31.8 g/dl (32-36); Mean Corpuscular Hemoglobin 30.8 pg (26-34); Mean Corpuscular Volume 96.8 fl (80-100); Mean Platelet Volume 9.3 fl (7.4-10.4); Monocytes Absolute Auto 0.5 K/mm3 (0.1-0.6); Monocytes Percent Auto 9.2 % (2.6-8.5); Neutrophils Absolute Auto 3.4 K/mm3 (1.3-6.7); Neutrophils Percent Auto 58.2 % (45.5-73.1); Platelet Count Result 183 k/mm3 (150-375); Red Cell Distribution Width 16.3 % (11.5-14.5); White Blood Count 5.9 K/mm3 (4.5-10.0)
[2021-06-08 05:02] LABS: Alanine Aminotransferase 23 U/L (4-50); Albumin Level 3.5 g/dL (3.5-5.1); Alkaline Phosphatase 179 U/L (38-126); Anion Gap 14 mmol/L (8-16); Aspartate Amino Transferase 28 U/L (17-59); Bilirubin,Total 0.6 mg/dL (0.2-1.3); Blood Urea Nitrogen 64 mg/dL (9-20); Calcium 9.3 mg/dL (8.4-10.2); Carbon Dioxide 32 mmol/L (22-30); Chloride 90 mmol/L (98-107); Estimated CRCL calculation 14 ml/min; Estimated Glomerular Filt Rate 8; Glucose 137 mg/dL (65-110); Magnesium 2.2 mg/dL (1.6-2.3); Phosphorus 10.1 mg/dL (2.5-4.5); Potassium 5.4 mmol/L (3.4-5.0); Sodium 136 mmol/L (137-145)
[2021-06-08] MEDS: VALPROIC ACID 250 MG CAPSULE PO ×3 (05:16→20:19)
[2021-06-08] MEDS: LEVOTHYROXINE SODIUM 50 MCG TABLET PO (05:17)
[2021-06-08 07:50] LABS: Glucose Point of Care 158 mg/dl (65-105)
[2021-06-08] MEDS: minoxidiL 2.5 MG TABLET PO ×2 (08:32→17:40)
[2021-06-08] MEDS: TERAZOSIN HCL 1 MG CAPSULE 2 MG PO ×2 (08:32→17:40)
[2021-06-08] MEDS: VITAMIN B CMPLX/VIT C/FOLIC AC 1 CAPSULE 1 CAP PO (08:32)
[2021-06-08] MEDS: FAMOTIDINE 20 MG TABLET PO ×2 (08:33→17:39)
[2021-06-08] MEDS: ESCITALOPRAM OXALATE 10 MG TABLET 20 MG PO (08:33)
[2021-06-08] MEDS: carvediloL 25 MG TABLET PO ×2 (08:34→20:19)
[2021-06-08] MEDS: BUMETANIDE INJ 1 MG/4 ML VIAL 2 MG IV PUSH ×2 (08:34→17:37)
[2021-06-08] MEDS: PHENYTOIN SODIUM 100 MG EXTENDED RELEASE CAP PO ×3 (08:35→20:18)
[2021-06-08] MEDS: hydrALAZINE HCL 50 MG TABLET 100 MG PO ×3 (08:35→17:39)
[2021-06-08] MEDS: CALCIUM ACETATE 667 MG TABLET 1334 MG PO ×3 (08:35→17:38)
[2021-06-08] MEDS: ASPIRIN 81 MG CHEWABLE TABLET PO (08:42)
[2021-06-08] MEDS: cloNIDine HCL 0.1 MG TABLET 0.3 MG PO ×2 (08:42→17:42)
[2021-06-08] MEDS: INSULIN GLARGINE (*BKC) 100 UNITS/ML 22 UNITS SUB-Q (08:43)
--- NOTE | 2021-06-08 09:27 | PM.PNNEP ---
Progress Note: A&P Additional Plan 1. the patient has end-stage renal disease. This is due to diabetes and hypertension. He had his regular dialysis yesterday. He is due for another treatment tomorrow 2. The paitent has chest pain. This sounds musculoskeletal. He is getting evaluation by the cardiac team. 3. the patient has volume overload. This is chronic and stable. On IV Lasix. They are not recording urine output. Will get some fluid off tomorrow. Will do an extra long treatment to add extra dry ultrafiltration to remove more fluid. 4. Diabetes. The patient is on Accu-Cheks and sliding-scale insulin per hospitalist. 5. Renal osteodystrophy Phosphorus is 10.1. He needs more binders. Calcium is 9.3 already so will add a non calcium based binder. 6. Anemia of chronic kidney disease His iron levels are low. Will give Venofer. Will give a single dose of EPO today subcutaneously and will give IV EPO with dialysis. 7. Depression the patient is on antidepressants. 8. Hypothyroidism the patient is on levothyroxine. 9. Hypertension blood pressure has come down with reinstituting his home medications. Subjective Date/time seen: 06/08/21 09:27 Interval history: Patient is alert. He is up in a chair. Oxygenation is better. He is down to3L of oxygen. Review of Systems Cardiovascular: Cardiovascular: Reports no additional cardiovascular complaints Respiratory: Respiratory: Reports no additional respiratory complaints Gastrointestinal: Gastrointestinal: Reports no additional gastrointestinal complaints Genitourinary: Genitourinary: Reports no additional male genitourinary complaints Exam Narrative: WDWN in NAD skin no rash head ncat lungs clear cor reg no rub abd BS+ nontender and soft ext 2+ edema. Objective Data Vital Signs Vital Signs: Vital Signs - 24 hr 06/07/21 10:00 06/07/21 12:00 06/07/21 14:00 Temperature 35.9 C L Pulse Rate 88 77 76 Respiratory Rate 18 Blood Pressure 148/75 H Pulse Oximetry 99 06/07/21 16:00 06/07/21 18:00 06/07/21 19:51 Temperature 36.1 C L 36.4 C L Pulse Rate 80 82 81 Respiratory Rate 18 20 Blood Pressure 140/74 153/51 H Pulse Oximetry 99 95 06/07/21 20:00 06/07/21 20:25 06/07/21 21:04 Temperature Pulse Rate 81 81 76 Respiratory Rate 20 Blood Pressure Pulse Oximetry 95 06/07/21 23:41 06/08/21 00:00 06/08/21 01:47 Temperature 36.3 C L Pulse Rate 72 73 75 Respiratory Rate 18 18 Blood Pressure 143/71 H Pulse Oximetry 96 96 06/08/21 04:00 06/08/21 06:00 06/08/21 08:25 Temperature 35.7 C L 35.9 C L Pulse Rate 83 80 82 Respiratory Rate 14 22 H Blood Pressure 121/40 L 131/59 L Pulse Oximetry 97 93 06/08/21 08:34 Temperature Pulse Rate 82 Respiratory Rate Blood Pressure Pulse Oximetry Intake/Output Intake/Output: Intake & Output 06/05/21 06/06/21 06/07/21 06/08/21 23:59 23:59 23:59 23:59 Intake Total 760 300 Output Total 0 Balance 760 300 Meds/Results Medications: Active Medications Generic Name Dose Route Start Last Admin Trade Name Freq PRN Reason Stop Dose Admin Albuterol 2 puff 06/07/21 03:59 Albuterol Sulfate (*Sp) Aerosol 1 Puff INHALATION Q6H PRN Wheezing Amitriptyline HCl 50 mg 06/07/21 21:00 06/07/21 20:25 Amitriptyline Hcl 25 Mg Tablet PO 50 mg HS BELKYS Administration Aspirin 81 mg 06/07/21 08:00 06/08/21 08:42 Aspirin 81 Mg Chewable Tablet PO 81 mg DAILY@0800 BELKYS Administration Atorvastatin Calcium 40 mg 06/07/21 21:00 06/07/21 20:25 Atorvastatin 40 Mg Tablet PO 40 mg HS BELKYS Administration Bumetanide 2 mg 06/07/21 17:00 06/08/21 08:34 Bumetanide Inj 1 Mg/4 Ml Vial IV PUSH 2 mg BID BELKYS Administration Calcium Acetate 1,334 mg 06/07/21 08:00 06/08/21 08:35 Calcium Acetate 667 Mg Tablet PO 1,334 mg TIDWM BELKYS Administration Carvedilol 25 mg 06/07/21 09:00 06/08/21
--- NOTE | 2021-06-08 10:17 | PM.IMPN ---
Progress Note: A&P Assessment and Plan (1) End-stage renal disease on hemodialysis: Code(s): N18.6 - End stage renal disease; Z99.2 - Dependence on renal dialysis Status: Acute Assessment and Plan: -nephrology: - Continue Telemetry - Accurate I&O. - Daily weight - Renal/diabetic diet - patient still have significant fluid overload continue dialysis patient most likely will need daily dialysis (2) Volume overload: Qualifiers: Hypervolemia type: unspecified Qualified Code(s): E87.70 - Fluid overload, unspecified Code(s): E87.70 - Fluid overload, unspecified Status: Acute Assessment and Plan: Patient has skipped several treatments of dialysis Continue to monitor. (3) Acute exacerbation of congestive heart failure: Qualifiers: Heart failure type: unspecified Qualified Code(s): I50.9 - Heart failure, unspecified Code(s): I50.9 - Heart failure, unspecified Status: Acute Assessment and Plan: Patient with chronic elevation of brain natriuretic peptide associated with pulmonary edema Continue dialysis and diuresis (4) Type 1 diabetes: Qualifiers: Diabetes mellitus complication status: with other specified complication Qualified Code(s): E10.69 - Type 1 diabetes mellitus with other specified complication Code(s): E10.9 - Type 1 diabetes mellitus without complications Status: Chronic Assessment and Plan: Continue home meds Continue insulin Accu-Cheks AC and HS - Fasting glucose this AM is >400. SSI dose changed to high dosing and his Lantus 15 units at AM is changed to 22 units HS. - Continue hypoglycemic panel. - Continue glucose checks AC and HS. - Renal/diabetic diet. (5) Seizure disorder: Onset Date: 10/2019 Code(s): G40.909 - Epilepsy, unspecified, not intractable, without status epilepticus Status: Inactive Assessment and Plan: Seizure-free Continue home meds (6) Elevated troponin: Code(s): R77.8 - Other specified abnormalities of plasma proteins Status: Acute Assessment and Plan: Patient with chronic elevation of troponins. Echo Most likely related to NSTEMI type 2 secondary to demand ischemia monitor patient does not have chest pain (7) Diarrhea: Qualifiers: Diarrhea type: unspecified type Qualified Code(s): R19.7 - Diarrhea, unspecified Code(s): R19.7 - Diarrhea, unspecified Status: Acute Assessment and Plan: - Stool culture, Cryptosporidium, C-diff, and Giardia ordered. - Monitor labs and VS. - Accurate I&O ordered. -continue to monitor most likely related to renal failure (8) Non compliance with medical treatment: Code(s): Z91.19 - Patient's noncompliance with other medical treatment and regimen Status: Acute Assessment and Plan: Counseling Subjective Date/time seen: 06/08/21 10:17 Interval history: Patient has missed multiple dialysis chest x-ray on admission shows pulmonary edema Nephrology was consulted Started on dialysis IV diuresis Patient feels weak still short of breath Patient denies fever headache chest pain I am seeing the patient for shortness of breath Exam Narrative: Alert Chest decreased air entry bilateral positive bilateral crackles Abdomen nontender nondistended CVS S1 + S2 Positive bilateral lower extremity edema Objective Data Vital Signs Vital Signs: Vital Signs - 24 hr 06/07/21 12:00 06/07/21 14:00 06/07/21 16:00 Temperature 96.6 F L 97 F L Pulse Rate 77 76 80 Respiratory Rate 18 18 Blood Pressure 148/75 H 140/74 Pulse Oximetry 99 99 06/07/21 18:00 06/07/21 19:51 06/07/21 20:00 Temperature 97.5 F L Pulse Rate 82 81 81 Respiratory Rate 20 20 Blood Pressure 153/51 H Pulse Oximetry 95 95 06/07/21 20:25 06/07/21 21:04 06/07/21 23:41 Temperature 97.3 F L Pulse Rate 81 76 72 Respiratory Rate 18 Blood Pres
--- NOTE | 2021-06-08 10:46 | PM.PNCARD ---
Progress Note: A&P Assessment and Plan (1) Elevated troponin: Code(s): R77.8 - Other specified abnormalities of plasma proteins Status: Acute Assessment and Plan: Mildly elevated troponins are not related to acute coronary syndrome. related to his end-stage renal disease. (2) Chest pain at rest: Code(s): R07.9 - Chest pain, unspecified Status: Acute Assessment and Plan: Non coronary chest pain. Probably related to volume overload plus/minus GI. Less likely pericarditic. Will request records from [place] regarding most recent stress test. No changes from a cardiac perspective today (3) Volume overload: Qualifiers: Hypervolemia type: unspecified Qualified Code(s): E87.70 - Fluid overload, unspecified Code(s): E87.70 - Fluid overload, unspecified Status: Acute Assessment and Plan: Patient has volume overload likely from some missed dialysis/end-stage renal disease. I do not think that is true congestive heart failure. Most recent echocardiogram shows normal diastolic and systolic function. (4) End-stage renal disease on hemodialysis: Code(s): N18.6 - End stage renal disease; Z99.2 - Dependence on renal dialysis Status: Acute Assessment and Plan: Followed by Dr. Carmichael (5) Pericardial effusion: Code(s): I31.3 - Pericardial effusion (noninflammatory) Status: Acute Assessment and Plan: Small effusion noted by echocardiogram few weeks ago. No evidence of tamponade (6) Pacemaker: Code(s): Z95.0 - Presence of cardiac pacemaker Status: Acute Assessment and Plan: Followed in [place] (7) Hypertension associated with diabetes: Code(s): E11.59 - Type 2 diabetes mellitus with other circulatory complications; I15.2 - Hypertension secondary to endocrine disorders Status: Acute Assessment and Plan: Continue current meds. (8) Pulmonary hypertension: Code(s): I27.20 - Pulmonary hypertension, unspecified Status: Acute Assessment and Plan: Moderate Subjective Date/time seen: 06/08/21 10:46 Interval history: 40-year-old end-stage renal disease admitted for chest pain, volume overload Date of service 06/08/2021: Chest pain continues. No shortness of breath. No syncope Review of Systems Review of Systems: All systems reviewed & are unremarkable except as noted in HPI and below Constitutional: Constitutional: Denies fatigue, Denies headache(s) and Denies weakness Eyes: Eyes: Denies blurry vision ENT: Reports Normal hearing present, Denies headache(s) and Denies neck pain Cardiovascular: Cardiovascular: Reports chest pain and Reports dyspnea Respiratory: Respiratory: Reports dyspnea Gastrointestinal: Gastrointestinal: Denies abdominal pain Genitourinary: Genitourinary: Denies hematuria and Denies flank pain Musculoskeletal: Musculoskeletal: Denies neck pain Integumentary/Breasts: Skin/Breast: Reports dry skin Neurologic: Reports Normal hearing present, Denies headache(s) and Denies weakness Psychiatric: Psychiatric: Denies anxiety Endocrine: Endocrine: Denies fatigue Hematologic/Lymphatic: Hematologic/Lymphatic: Denies easy bleeding Allergic/Immunologic: Allergic/Immunologic: Denies GI upset with certain foods Exam Narrative: Awake alert and oriented appears older than stated age Const: General: comfortable and no acute distress HENMT: General nose exam: Normal nares present Eyes: Sclera: sclerae normal Neck: Neck: supple and no JVD Chest: Other: No reproducible chest wall pain to palpation Resp: Auscultation: clear to auscultation bilaterally Cardio: Rate: regular rate Rhythm: regular rhythm GI: Inspection: non-distended Auscultation: normal bowel sounds Skin: General skin exam: normal color Neuro: Cranial nerves: Yes Normal hearing present Cognition (Neuro): normal cognition Speech: normal speech Extrem: Gener
[2021-06-08] MEDS: IRON SUCROSE COMPLEX 200 MG in SODIUM CHLORIDE 0.9% IV 50 ML 120 MG IVPB (11:00)
[2021-06-08] MEDS: EPOETIN ALFA-EPBX 10,000 UNITS/ML VIAL 10000 UNITS SUB-Q (11:01)
[2021-06-08] MEDS: HYDROcodone/acetaminophen (*CRX) 5-325 MG TABLET 1 TAB PO ×2 (11:05→23:47)
[2021-06-08 12:11] LABS: Glucose Point of Care 137 mg/dl (65-105)
[2021-06-08] MEDS: SEVELAMER CARBONATE 800 MG TABLET 2400 MG PO ×2 (12:50→17:40)
[2021-06-08 15:49] LABS: Glucose Point of Care 124 mg/dl (65-105)
--- NOTE | 2021-06-08 18:36 | PC.NURSE ---
This patient, Ari Zuniga, was received from [ 203/] on 06/08/21 at 1835. Patient/family oriented to unit policies and routines
[2021-06-08] MEDS: AMITRIPTYLINE HCL 25 MG TABLET 50 MG PO (20:19)
[2021-06-08] MEDS: ATORVASTATIN 40 MG TABLET PO (20:19)
[2021-06-09] VITALS (27 sets, daily range): BP systolic 90–149; BP diastolic 22–99; PULSE 67–102; RESP 16–18; TEMP 36–37.2; O2SAT 90–94
--- NOTE | 2021-06-09 | ECHO_ITS ---
Patient Info Name: Ari Zuniga Age: 40 years : 1980 Gender: Male Ht: 72 in Wt: 195 lbs BSA: 2.13 m2 HR: 87 bpm BP: 108 / 50 mmHg Heart Rhythm: Sinus Rhythm Technical Quality: Fair Exam Date: 06/09/2021 3:27 PM Exam Location: [facility] Card Pulmonary Patient Status: Inpatient Admit Date: 06/06/2021 Staff Ordering Physician: Cyndee Cloud M.A., MD Benefits Manager: Stacey Baugh RDCS Attending Provider: Nicole Bhakta Referring Physician: John Paul IYER; Exam Type: CA echo doppler color flow Study Info Indications - elevated troponin Complete two-dimensional, color flow and Doppler transthoracic echocardiogram is performed. Summary 1. Left ventricular systolic function is hyperdynamic, estimated at >70%. 2. Left ventricular chamber dimension is normal. 3. There is mildly increased left ventricular wall thickness. 4. There is no aortic valve stenosis. 5. There is trace mitral valve regurgitation. 6. There is trace tricuspid valve regurgitation. 7. Moderate pulmonary hypertension, estimated pulmonary arterial systolic pressure is 46 mmHg. 8. Large left pleural effusion. 9. There is small pericardial effusion without tamponade physiology. 10. Normal inferior vena cava with >50% collapse upon inspiration consistent with normal right atrial pressure, 5 mmHg. Left Ventricle Left ventricular chamber dimension is normal. Left ventricular systolic function is hyperdynamic, estimated at >70%. There is mildly increased left ventricular wall thickness. The left ventricular diastolic function is abnormal. Right Ventricle Right ventricular chamber dimension is normal. Right ventricular systolic function is normal. Left Atria Left atrial chamber dimension is normal. Right Atria Right atrial chamber dimension is mildly enlarged. Aortic Valve The aortic valve is trileaflet. There is no aortic valve stenosis. There is no aortic valve regurgitation. Pulmonic Valve The pulmonic valve is normal. There is trace pulmonic regurgitation. Mitral Valve The mitral valve has normal leaflets. There is trace mitral valve regurgitation. Tricuspid Valve The tricuspid valve leaflets are normal. There is trace tricuspid valve regurgitation. Moderate pulmonary hypertension, estimated pulmonary arterial systolic pressure is 46 mmHg. Pericardium/Pleural The pericardium appears normal. There is small pericardial effusion without tamponade physiology. Large left pleural effusion. Inferior Vena Cava Normal inferior vena cava with >50% collapse upon inspiration consistent with normal right atrial pressure, 5 mmHg. Aorta The aortic root size at the sinus of Valsalva is normal. Left Ventricular Outflow Tract Name Value Normal LVOT 2D LVOT Diameter 2.0 cm LVOT Doppler LVOT Peak Gradient 9 mmHg LVOT Mean Gradient 4 mmHg LVOT VTI 28 cm LVOT VTI/AV VTI Ratio 0.7 LVOT Stroke Volume 85 ml LVOT CO
[2021-06-09] MEDS: DEXTROSE 50% 25 GM/50 ML SYRINGE IV PUSH ×3 (04:35→07:41)
[2021-06-09 04:46] LABS: Glucose Point of Care 40 mg/dl (65-105)
[2021-06-09 04:46] LABS: Glucose Point of Care 96 mg/dl (65-105)
[2021-06-09] MEDS: VALPROIC ACID 250 MG CAPSULE PO ×2 (05:24→21:02)
[2021-06-09] MEDS: LEVOTHYROXINE SODIUM 50 MCG TABLET PO (05:25)
[2021-06-09 05:44] LABS: Glucose Point of Care 98 mg/dl (65-105)
[2021-06-09 05:44] LABS: Glucose Point of Care 57 mg/dl (65-105)
[2021-06-09 06:11] LABS: Basophils Percent Auto 0.2 % (0.2-1.2); Eosinophils Absolute Auto 0.8 K/mm3 (0-0.3); Eosinophils Percent Auto 12.5 % (0-4.4); Immature Granulocyte Absolute 0.02 K/mm3 (0.00-0.031); Immature Granulocyte Percent A 0.3 % (0-0.5); Lymphocytes Absolute Auto 0.69 K/mm3 (0.9-3.2); Mean Corpuscular HGB Conc 30.4 g/dl (32-36); Mean Corpuscular Volume 98.7 fl (80-100); Mean Platelet Volume 9.2 fl (7.4-10.4); Monocytes Absolute Auto 0.6 K/mm3 (0.1-0.6); Monocytes Percent Auto 10.2 % (2.6-8.5); Neutrophils Absolute Auto 4.2 K/mm3 (1.3-6.7); Neutrophils Percent Auto 65.8 % (45.5-73.1); Platelet Count Result 190 k/mm3 (150-375); Red Blood Count 2.33 M/mm3 (4.6-6.20); Red Cell Distribution Width 16.3 % (11.5-14.5); White Blood Count 6.3 K/mm3 (4.5-10.0)
[2021-06-09 06:20] LABS: Potassium 5.5 mmol/L (3.4-5.0)
[2021-06-09 06:25] LABS: Albumin Level 3.5 g/dL (3.5-5.1); Anion Gap 12 mmol/L (8-16); Blood Urea Nitrogen 74 mg/dL (9-20); Calcium 9.1 mg/dL (8.4-10.2); Carbon Dioxide 32 mmol/L (22-30); Chloride 92 mmol/L (98-107); Estimated CRCL calculation 12 ml/min; Estimated Glomerular Filt Rate 7; Glucose 86 mg/dL (65-110); Phosphorus 9.7 mg/dL (2.5-4.5); Sodium 136 mmol/L (137-145)
[2021-06-09 07:35] LABS: Glucose Point of Care 49 mg/dl (65-105)
[2021-06-09 08:29] LABS: Glucose Point of Care 74 mg/dl (65-105)
[2021-06-09 09:34] LABS: Glucose Point of Care 82 mg/dl (65-105)
--- NOTE | 2021-06-09 09:49 | PM.PNCARD ---
Progress Note: A&P Assessment and Plan (1) Elevated troponin: Code(s): R77.8 - Other specified abnormalities of plasma proteins <Ruby McmanusLEONEL-C - Last Filed: 06/09/21 10:40> Status: Acute <Ruby Mcmanus APN-C - Last Filed: 06/09/21 10:40> Assessment and Plan: Mildly elevated troponins are not related to acute coronary syndrome. Related to his end-stage renal disease. <Ruby GarciaLEONEL langley-C - Last Filed: 06/09/21 10:40> (2) Chest pain at rest: Code(s): R07.9 - Chest pain, unspecified <Ruby Mcmanus COLLISION MECHANIC-C - Last Filed: 06/09/21 10:40> Status: Acute <Ruby Mcmanus COLLISION MECHANIC-C - Last Filed: 06/09/21 10:40> Assessment and Plan: Non coronary chest pain. Probably related to volume overload plus/minus GI. Per patient had a recent negative stress test per his report, I have requested records from [facility]. No cardiac workup recommended at this time. <Ruby GarciaLEONEL langley-C - Last Filed: 06/09/21 10:40> (3) Volume overload: Qualifiers: Hypervolemia type: unspecified Qualified Code(s): E87.70 - Fluid overload, unspecified <Ruby McmanusLEONEL-C - Last Filed: 06/09/21 10:40> Code(s): E87.70 - Fluid overload, unspecified <Ruby McmanusSAMANTAN-C - Last Filed: 06/09/21 10:40> Status: Acute <Ruby McmanusSAMANTAN-C - Last Filed: 06/09/21 10:40> Assessment and Plan: Recent echocardiogram showing normal LV systolic function with EF 60 - 65%, normal diastolic function. Volume overload probably related to missed dialysis treatment/ESRD rather than CHF. <Ruby JeanieFidel MariettaLEONEL langley-C - Last Filed: 06/09/21 10:40> (4) End-stage renal disease on hemodialysis: Code(s): N18.6 - End stage renal disease; Z99.2 - Dependence on renal dialysis <Ruby Mcmanus APN-C - Last Filed: 06/09/21 10:40> Status: Acute <Ruby Mcmanus APN-C - Last Filed: 06/09/21 10:40> Assessment and Plan: Followed by Dr. Carmichael <Ruby Mcmanus APN-C - Last Filed: 06/09/21 10:40> (5) Pericardial effusion: Code(s): I31.3 - Pericardial effusion (noninflammatory) <Ruby Mcmanus APN-C - Last Filed: 06/09/21 10:40> Status: Acute <Ruby Mcmanus APN-C - Last Filed: 06/09/21 10:40> Assessment and Plan: Small effusion noted by echocardiogram few weeks ago. No evidence of tamponade <Ruby Mcmanus APN-C - Last Filed: 06/09/21 10:40> (6) Pacemaker: Code(s): Z95.0 - Presence of cardiac pacemaker <Ruby Mcmanus APN-C - Last Filed: 06/09/21 10:40> Status: Acute <Ruby Mcmanus APN-C - Last Filed: 06/09/21 10:40> Assessment and Plan: Followed in [place] <Ruby Mcmanus APN-C - Last Filed: 06/09/21 10:40> (7) Hypertension associated with diabetes: Code(s): E11.59 - Type 2 diabetes mellitus with other circulatory complications; I15.2 - Hypertension secondary to endocrine disorders <Ruby Mcmanus APN-C - Last Filed: 06/09/21 10:40> Status: Acute <Ruby Mcmanus APN-C - Last Filed: 06/09/21 10:40> Assessment and Plan: Continue current meds. <Ruby Mcmanus APN-C - Last Filed: 06/09/21 10:40> (8) Pulmonary hypertension: Code(s): I27.20 - Pulmonary hypertension, unspecified <Ruby Mcmanus APN-C - Last Filed: 06/09/21 10:40> Status: Acute <SOM Rivas - Last Filed: 06/09/21 10:40> Assessment and Plan: Moderate <SOM Rivas - Last Filed: 06/09/21 10:40> Additional Plan Attending addendum: I agree with the above documentation and plan of care as outlined. Echocardiogram pending. <Jack Estrada MD - Last Filed: 06/09/21 16:34> Subjective Date/time seen: 06/09/21 09:49 <SOM Rivas - Last Filed: 06/09/21 10:40> Interval history: 40-year-old end-stage renal disease admitted for chest pain, volume overload Date
[2021-06-09] MEDS: HYDROcodone/acetaminophen (*CRX) 5-325 MG TABLET 1 TAB PO (10:45)
[2021-06-09] MEDS: MORPHINE SULFATE (*CRX) 2 MG/ML INJ IV PUSH ×3 (10:58→22:19)
--- NOTE | 2021-06-09 11:23 | PM.PNNEP ---
Progress Note: A&P Additional Plan 1. the patient has end-stage renal disease. This is due to diabetes and hypertension. He had his regular dialysis yesterday. Dialysis is underway. 2. The paitent has chest pain. This sounds musculoskeletal. He is getting evaluation by the cardiac team. 3. the patient has volume overload. This is chronic and stable. His urine output is minimal. Will stop the Lasix. Remove 6L today and another 4 or 5 tomorrow. 4. Diabetes. The patient is on Accu-Cheks and sliding-scale insulin per hospitalist. 5. Renal osteodystrophy Phosphorus is down to 9.7. 6. Anemia of chronic kidney disease On EPO and Venofer. 7. Depression the patient is on antidepressants. 8. He has back pain. Is longstanding. He says Tg works for him. We discussed the problem with rapid acting narcotics and tolerance thereto. Will try nonsteroidals. 9. Hypertension blood pressure has come down with reinstituting his home medications. With getting all this fluid off we may be able to reduce the blood pressure medications. Subjective Date/time seen: 06/09/21 11:23 Interval history: Patient is alert. He has back pain. He received morphine for this. Will try nonsteroidals as he does not make any urine any more he says. He is on dialysis and tolerating it well. He was seen at 11:15 a.m. we are going for a total of 6L today. Will try to do another treatment tomorrow as well. Exam Narrative: WDWN in NAD skin no rash or subQ nodules head ncat lungs clear cor reg no rub or gallop abd BS+ nontender and soft ext 2+ edema. Objective Data Vital Signs Vital Signs: Vital Signs - 24 hr 06/08/21 12:00 06/08/21 12:28 06/08/21 16:10 Temperature 35.6 C L 35.7 C L Pulse Rate 76 77 76 Respiratory Rate 20 20 Blood Pressure 109/62 134/81 Pulse Oximetry 97 95 06/08/21 18:29 06/08/21 20:00 06/08/21 20:19 Temperature 36.1 C L Pulse Rate 79 84 73 Respiratory Rate 16 Blood Pressure 108/50 L Pulse Oximetry 94 06/08/21 22:00 06/08/21 22:12 06/09/21 02:00 Temperature Pulse Rate 87 87 Respiratory Rate Blood Pressure Pulse Oximetry 92 06/09/21 08:00 06/09/21 09:00 06/09/21 09:19 Temperature 36.6 C Pulse Rate 95 74 Respiratory Rate 18 Blood Pressure 132/89 144/49 H Pulse Oximetry 92 06/09/21 09:30 06/09/21 09:45 06/09/21 10:00 Temperature Pulse Rate 80 67 68 Respiratory Rate Blood Pressure 146/60 H 123/57 L 127/53 L Pulse Oximetry 06/09/21 10:15 06/09/21 10:30 06/09/21 11:00 Temperature Pulse Rate 74 76 78 Respiratory Rate Blood Pressure 99/39 L 90/42 L 131/87 Pulse Oximetry 06/09/21 11:15 Temperature Pulse Rate 80 Respiratory Rate Blood Pressure 118/43 L Pulse Oximetry Intake/Output Intake/Output: Intake & Output 06/06/21 06/07/21 06/08/21 06/09/21 23:59 23:59 23:59 23:59 Intake Total 760 1170 976 Output Total 0 Balance 760 1170 976 Meds/Results Medications: Active Medications Generic Name Dose Route Start Last Admin Trade Name Freq PRN Reason Stop Dose Admin Hydrocodone Bitart/Acetaminophen 1 tab 06/08/21 10:14 06/09/21 10:45 Hydrocodone/Acetaminophen (*Crx) 5-325 Mg Tablet PO 1 tab Q8H PRN Administration Pain Rated 6 or Greater Albuterol 2 puff 06/07/21 03:59 Albuterol Sulfate (*Sp) Aerosol 1 Puff INHALATION Q6H PRN Wheezing Amitriptyline HCl 50 mg 06/07/21 21:00 06/08/21 20:19 Amitriptyline Hcl 25 Mg Tablet PO 50 mg HS BELKYS Administration Aspirin 81 mg 06/07/21 08:00 06/08/21 08:42 Aspirin 81 Mg Chewable Tablet PO 81 mg DAILY@0800 BELKYS Administration Atorvastatin Calcium 40 mg 06/07/21 21:00 06/08/21 20:19 Atorvastatin 40 Mg Tablet PO 40 mg HS BELKYS Administration Bumetanide 2 mg 06/07/21 17:00 06/08/21 17:37 Bumetanide Inj 1 Mg/4 Ml Vial IV PUSH 2 mg BID BELKYS Administration Calcium Acetate 1,3
[2021-06-09 11:49] LABS: Glucose Point of Care 77 mg/dl (65-105)
[2021-06-09] MEDS: SODIUM CHLORIDE 0.9% IV 1,000 ML 999 ML IV CONT (12:40)
[2021-06-09] MEDS: EPOETIN ALFA-EPBX 10,000 UNITS/ML VIAL 10000 UNITS IV PUSH (12:42)
[2021-06-09 14:52] LABS: Glucose Point of Care 75 mg/dl (65-105)
[2021-06-09] MEDS: LIDOCAINE 5% PATCH 1 PATCH TRANSDERM (15:17)
--- NOTE | 2021-06-09 15:45 | PM.IMPN ---
Progress Note: A&P Assessment and Plan (1) Non compliance with medical treatment: Code(s): Z91.19 - Patient's noncompliance with other medical treatment and regimen Status: Acute (2) End-stage renal disease on hemodialysis: Code(s): N18.6 - End stage renal disease; Z99.2 - Dependence on renal dialysis Status: Acute (3) Chest pain at rest: Code(s): R07.9 - Chest pain, unspecified Status: Acute (4) Type 1 diabetes: Qualifiers: Diabetes mellitus complication status: with other specified complication Qualified Code(s): E10.69 - Type 1 diabetes mellitus with other specified complication Code(s): E10.9 - Type 1 diabetes mellitus without complications Status: Chronic (5) Back pain: Code(s): M54.9 - Dorsalgia, unspecified Status: Acute (6) Dysphagia: Code(s): R13.10 - Dysphagia, unspecified Status: Acute Additional Plan 40-year-old male with past medical history significant for end-stage renal disease on hemodialysis, hypertension, type 2 diabetes mellitus, hypothyroidism, peripheral neuropathy, anemia of chronic disease, seizure disorder. Patient presents to emergency room due to chest pain after dialysis according to patient's he has been having diarrhea for 2 weeks now on and has skipped dialysis. 1) End-stage renal disease on hemodialysis: Appreciate renal Help Dialysis as per renal Electrolyte management as per renal (2) Type 1 diabetes: BG check TID AC and HS c/w high dose SS insulin Decrease dose of lantus Adjust dose as needed (3) Seizure disorder: Seizure-free Continue home meds (4) Elevated troponin: Appreciate cardiology help NOt related to ACS (5)Back pain: Acute on Chronic Pain control Obtain lumbar Xray (6)?Dysphagia: Obtain modified barium swallow (7) Non compliance with medical treatment: Counseling (8)DVT ppx:hep SQ (9)Code:Full (10)Dispo:?could be potential discharge in AM if ok with nephrology Time Spent With Patient Time with patient: 15 - 25 minutes Subjective Date/time seen: 06/09/21 15:45 c/o back pain c/o intermittent choking sensation, cough after eating few bites Review of Systems Review of Systems: All systems reviewed & are unremarkable except as noted in HPI and below Constitutional: Constitutional: Reports no additional constitutional complaints Eyes: Eyes: Reports no additional eye complaints ENT: Reports system reviewed and no additional complaints, except as documented Cardiovascular: Cardiovascular: Reports no additional cardiovascular complaints Respiratory: Respiratory: Reports no additional respiratory complaints Gastrointestinal: Gastrointestinal: Reports no additional gastrointestinal complaints Musculoskeletal: Musculoskeletal: Reports back pain Neurologic: Reports system reviewed and no additional complaints, except as documented Exam Const: General: no acute distress HENMT: Mouth: Yes moist mucous membranes Eyes: Pupils: Equal, round and reactive pupils present Neck: Neck: supple Resp: Auscultation: clear to auscultation bilaterally Cardio: Rate: regular rate Rhythm: regular rhythm GI: GI Palp: Yes Soft to palpation Auscultation: normal bowel sounds Psych: Mental Status: mental status grossly normal Objective Data Vital Signs Vital Signs: Vital Signs - 24 hr 06/08/21 16:10 06/08/21 18:29 06/08/21 20:00 Temperature 96.2 F L 96.9 F L Pulse Rate 76 79 84 Respiratory Rate 20 16 Blood Pressure 134/81 108/50 L Pulse Oximetry 95 94 06/08/21 20:19 06/08/21 22:00 06/08/21 22:12 Temperature Pulse Rate 73 87 Respiratory Rate Blood Pressure Pulse Oximetry 92 06/09/21 02:00 06/09/21 08:00 06/09/21 09:00 Temperature 97.8 F Pulse Rate 87 95 Respiratory Rate 18 Blood Pressure 132/89 Pulse Oximetry 92 06/09/21 09:19 06/09/21 09:30 06/09/21 09:45 Temperature Pulse Rate 74 80 67
[2021-06-09 17:12] LABS: Glucose Point of Care 135 mg/dl (65-105)
[2021-06-09] MEDS: BUMETANIDE INJ 1 MG/4 ML VIAL 2 MG IV PUSH (18:15)
[2021-06-09] MEDS: hydrALAZINE HCL 50 MG TABLET 100 MG PO (18:16)
[2021-06-09] MEDS: TERAZOSIN HCL 1 MG CAPSULE 2 MG PO (18:17)
[2021-06-09] MEDS: SEVELAMER CARBONATE 800 MG TABLET 2400 MG PO (18:18)
[2021-06-09] MEDS: cloNIDine HCL 0.1 MG TABLET 0.3 MG PO (18:18)
[2021-06-09] MEDS: FAMOTIDINE 20 MG TABLET PO (18:19)
[2021-06-09] MEDS: CALCIUM ACETATE 667 MG TABLET 1334 MG PO (18:19)
[2021-06-09] MEDS: HEPARIN SODIUM 5,000 UNITS/ML VIAL 5000 UNITS SUB-Q (18:20)
[2021-06-09 20:58] LABS: Glucose Point of Care 222 mg/dl (65-105)
[2021-06-09] MEDS: carvediloL 25 MG TABLET PO (21:02)
[2021-06-09] MEDS: ATORVASTATIN 40 MG TABLET PO (21:02)
[2021-06-09] MEDS: PHENYTOIN SODIUM 100 MG EXTENDED RELEASE CAP PO (21:02)
[2021-06-09] MEDS: AMITRIPTYLINE HCL 25 MG TABLET 50 MG PO (21:03)
[2021-06-10] VITALS (28 sets, daily range): BP systolic 112–176; BP diastolic 60–94; PULSE 79–101; RESP 16–18; TEMP 36–37.3; O2SAT 92–97
[2021-06-10] MEDS: MORPHINE SULFATE (*CRX) 2 MG/ML INJ IV PUSH ×3 (02:32→20:20)
[2021-06-10] MEDS: HYDROcodone/acetaminophen (*CRX) 5-325 MG TABLET 1 TAB PO ×2 (05:29→12:22)
[2021-06-10] MEDS: VALPROIC ACID 250 MG CAPSULE PO ×3 (05:29→20:18)
[2021-06-10] MEDS: LEVOTHYROXINE SODIUM 50 MCG TABLET PO (05:29)
[2021-06-10 06:07] LABS: Basophils Percent Auto 0.4 % (0.2-1.2); Eosinophils Absolute Auto 0.5 K/mm3 (0-0.3); Eosinophils Percent Auto 9.8 % (0-4.4); Hemoglobin 7.4 g/dL (14.0-18.0); Immature Granulocyte Absolute 0.03 K/mm3 (0.00-0.031); Immature Granulocyte Percent A 0.6 % (0-0.5); Lymphocytes Absolute Auto 0.52 K/mm3 (0.9-3.2); Lymphocytes Percent Auto 10.4 % (18.3-44.2); Mean Corpuscular HGB Conc 30.8 g/dl (32-36); Mean Corpuscular Volume 100.4 fl (80-100); Mean Platelet Volume 9.4 fl (7.4-10.4); Monocytes Absolute Auto 0.6 K/mm3 (0.1-0.6); Monocytes Percent Auto 12.8 % (2.6-8.5); Neutrophils Absolute Auto 3.3 K/mm3 (1.3-6.7); Platelet Count Result 197 k/mm3 (150-375); Red Blood Count 2.39 M/mm3 (4.6-6.20); Red Cell Distribution Width 16.3 % (11.5-14.5)
[2021-06-10 06:17] LABS: Albumin Level 3.5 g/dL (3.5-5.1); Anion Gap 12 mmol/L (8-16); Blood Urea Nitrogen 44 mg/dL (9-20); Calcium 8.9 mg/dL (8.4-10.2); Carbon Dioxide 29 mmol/L (22-30); Chloride 95 mmol/L (98-107); Estimated CRCL calculation 18 ml/min; Estimated Glomerular Filt Rate 11; Glucose 267 mg/dL (65-110); Phosphorus 6.6 mg/dL (2.5-4.5); Potassium 4.7 mmol/L (3.4-5.0); Sodium 136 mmol/L (137-145)
--- NOTE | 2021-06-10 08:17 | PM.PNNEP ---
Progress Note: A&P Additional Plan 1. the patient has end-stage renal disease. This is due to diabetes and hypertension. he had Dialysis yesterday. He will get dry ultrafiltration today. 2. The paitent has chest pain. This sounds musculoskeletal. He is getting evaluation by the cardiac team. 3. the patient has volume overload. This is chronic and stable. Removed 6L Yesterday and will take more off today. 4. Diabetes. The patient is on Accu-Cheks and sliding-scale insulin per hospitalist. 5. Renal osteodystrophy Phosphorus is down to 6.6 6. Anemia of chronic kidney disease On EPO and Venofer. Hemoglobin 7.4. 7. Depression the patient is on antidepressants. 8. Back pain is better today. 9. Hypertension blood pressure Is up this morning. This will allow is to take more fluid off this afternoon. Minoxidil is on hold. He may not be on as many blood pressure meds once the fluid is off. Subjective Date/time seen: 06/10/21 08:17 Interval history: Patient is alert. Back pain is better. Breathing is better. He still has lot of swelling Exam Narrative: WDWN in NAD skin no rash or subQ nodules head ncat lungs clear cor reg no rub or gallop abd BS+ nontender and soft ext 2+ edema. Objective Data Vital Signs Vital Signs: Vital Signs - 24 hr 06/09/21 09:00 06/09/21 09:19 06/09/21 09:30 Temperature 36.6 C Pulse Rate 95 74 80 Respiratory Rate 18 Blood Pressure 132/89 144/49 H 146/60 H Pulse Oximetry 06/09/21 09:45 06/09/21 10:00 06/09/21 10:15 Temperature Pulse Rate 67 68 74 Respiratory Rate Blood Pressure 123/57 L 127/53 L 99/39 L Pulse Oximetry 06/09/21 10:30 06/09/21 11:00 06/09/21 11:15 Temperature Pulse Rate 76 78 80 Respiratory Rate Blood Pressure 90/42 L 131/87 118/43 L Pulse Oximetry 06/09/21 11:30 06/09/21 11:45 06/09/21 12:00 Temperature Pulse Rate 74 74 95 Respiratory Rate Blood Pressure 96/26 L 101/53 L 95/79 L Pulse Oximetry 06/09/21 12:15 06/09/21 12:30 06/09/21 12:45 Temperature Pulse Rate 76 74 72 Respiratory Rate Blood Pressure 108/32 L 100/40 L 106/57 L Pulse Oximetry 06/09/21 13:00 06/09/21 13:20 06/09/21 13:35 Temperature Pulse Rate 76 74 82 Respiratory Rate Blood Pressure 117/99 H 96/71 L 111/54 L Pulse Oximetry 06/09/21 13:55 06/09/21 14:10 06/09/21 15:53 Temperature 36.4 C 36.0 C L Pulse Rate 86 94 96 Respiratory Rate 16 18 Blood Pressure 105/22 L 142/85 H 149/91 H Pulse Oximetry 94 06/09/21 16:00 06/09/21 20:00 06/09/21 21:02 Temperature 37.2 C Pulse Rate 97 102 H 99 Respiratory Rate 18 Blood Pressure 130/52 L Pulse Oximetry 90 06/10/21 00:00 06/10/21 04:00 06/10/21 06:05 Temperature 37.3 C Pulse Rate 94 99 101 H Respiratory Rate 16 Blood Pressure 176/90 H Pulse Oximetry 92 Intake/Output Intake/Output: Intake & Output 06/07/21 06/08/21 06/09/21 06/10/21 23:59 23:59 23:59 23:59 Intake Total 760 1170 1094 300 Output Total 0 6000 Balance 760 1170 -4906 300 Meds/Results Medications: Active Medications Generic Name Dose Route Start Last Admin Trade Name Freq PRN Reason Stop Dose Admin Hydrocodone Bitart/Acetaminophen 1 tab 06/09/21 15:48 06/10/21 05:29 Hydrocodone/Acetaminophen (*Crx) 5-325 Mg Tablet PO 1 tab Q6H PRN Administration Pain Rated 6 or Greater Albuterol 2 puff 06/07/21 03:59 Albuterol Sulfate (*Sp) Aerosol 1 Puff INHALATION Q6H PRN Wheezing Amitriptyline HCl 50 mg 06/07/21 21:00 06/09/21 21:03 Amitriptyline Hcl 25 Mg Tablet PO 50 mg HS BELKYS Administration Aspirin 81 mg 06/07/21 08:00 06/09/21 15:04 Aspirin 81 Mg Chewable Tablet PO Not Given DAILY@0800 BELKYS Atorvastatin Calcium 40 mg 06/07/21 21:00 06/09/21 21:02 Atorvastatin 40 Mg Tablet PO 40 mg HS BELKYS Administration Bumetanide 2 mg 06/07/21 17:00 06/09/21 18
[2021-06-10 08:48] LABS: Glucose Point of Care 260 mg/dl (65-105)
[2021-06-10] MEDS: INSULIN ASPART (*BKC) 100 UNITS/ML SUB-Q ×2 (09:02→12:20)
[2021-06-10] MEDS: SEVELAMER CARBONATE 800 MG TABLET 2400 MG PO ×2 (09:03→12:21)
[2021-06-10] MEDS: CALCIUM ACETATE 667 MG TABLET 1334 MG PO ×2 (09:04→12:21)
[2021-06-10] MEDS: cloNIDine HCL 0.1 MG TABLET 0.3 MG PO (09:04)
[2021-06-10] MEDS: PHENYTOIN SODIUM 100 MG EXTENDED RELEASE CAP PO ×3 (09:05→20:18)
[2021-06-10] MEDS: hydrALAZINE HCL 50 MG TABLET 100 MG PO ×2 (09:05→12:21)
[2021-06-10] MEDS: ESCITALOPRAM OXALATE 10 MG TABLET 20 MG PO (09:05)
[2021-06-10] MEDS: TERAZOSIN HCL 1 MG CAPSULE 2 MG PO (09:05)
[2021-06-10] MEDS: FAMOTIDINE 20 MG TABLET PO (09:05)
[2021-06-10] MEDS: VITAMIN B CMPLX/VIT C/FOLIC AC 1 CAPSULE 1 CAP PO (09:05)
[2021-06-10] MEDS: levETIRAcetam 500 MG TABLET BY MOUTH (09:06)
[2021-06-10] MEDS: carvediloL 25 MG TABLET PO ×2 (09:07→20:19)
[2021-06-10] MEDS: BUMETANIDE INJ 1 MG/4 ML VIAL 2 MG IV PUSH (09:08)
[2021-06-10] MEDS: HEPARIN SODIUM 5,000 UNITS/ML VIAL 5000 UNITS SUB-Q (09:09)
[2021-06-10] MEDS: ASPIRIN 81 MG CHEWABLE TABLET PO (09:10)
[2021-06-10] MEDS: IRON SUCROSE COMPLEX 200 MG in SODIUM CHLORIDE 0.9% IV 50 ML 120 MG IVPB (09:13)
[2021-06-10] MEDS: INSULIN GLARGINE (*BKC) 100 UNITS/ML 18 UNITS SUB-Q (09:13)
--- NOTE | 2021-06-10 09:46 | PM.PNCARD ---
Progress Note: A&P Assessment and Plan (1) Elevated troponin: Code(s): R77.8 - Other specified abnormalities of plasma proteins <Ruby GarciaESTEBAN langleyC - Last Filed: 06/10/21 10:13> Status: Acute <Ruby McmanusESTEBANC - Last Filed: 06/10/21 10:13> Assessment and Plan: Mildly elevated troponins are not related to acute coronary syndrome. Related to his end-stage renal disease. <Ruby GarciaESTEBAN langleyC - Last Filed: 06/10/21 10:13> (2) Chest pain at rest: Code(s): R07.9 - Chest pain, unspecified <Ruby GarciaESTEBAN langleyC - Last Filed: 06/10/21 10:13> Status: Acute <Ruby GarciaLEONEL langley-C - Last Filed: 06/10/21 10:13> Assessment and Plan: Non coronary chest pain. Probably related to volume overload plus/minus GI. Per patient had a recent negative stress test per his report, I have requested records from [facility]. No cardiac workup recommended at this time. <Ruby JeanieFidel MariettaESTEBAN langleyC - Last Filed: 06/10/21 10:13> (3) Volume overload: Qualifiers: Hypervolemia type: unspecified Qualified Code(s): E87.70 - Fluid overload, unspecified <Ruby WareFidel MariettaLEONEL langley-C - Last Filed: 06/10/21 10:13> Code(s): E87.70 - Fluid overload, unspecified <Ruby GarciaLEONEL langley-C - Last Filed: 06/10/21 10:13> Status: Acute <Ruby GarciaLEONEL langley-C - Last Filed: 06/10/21 10:13> Assessment and Plan: Recent echocardiogram showing normal LV systolic function with EF 60 - 65%, normal diastolic function. Volume overload probably related to missed dialysis treatment/ESRD rather than CHF. Echo from yesterday unchanged from previous study...EF >70%, no significant valvular abnormalities, small pericardial effusion once again noted, large pleural effusion. HD again today. <ESTEBAN RivasC - Last Filed: 06/10/21 10:13> (4) End-stage renal disease on hemodialysis: Code(s): N18.6 - End stage renal disease; Z99.2 - Dependence on renal dialysis <SOM Rivas - Last Filed: 06/10/21 10:13> Status: Acute <SOM Rivas - Last Filed: 06/10/21 10:13> Assessment and Plan: Followed by Dr. Carmichael <SOM Rivas - Last Filed: 06/10/21 10:13> (5) Pericardial effusion: Code(s): I31.3 - Pericardial effusion (noninflammatory) <SOM Rivas - Last Filed: 06/10/21 10:13> Status: Acute <SOM Rivas - Last Filed: 06/10/21 10:13> Assessment and Plan: Small effusion noted by echocardiogram few weeks ago and by repeat echo yesterday. No evidence of tamponade <SOM Rivas - Last Filed: 06/10/21 10:13> (6) Pacemaker: Code(s): Z95.0 - Presence of cardiac pacemaker <SOM Rivas - Last Filed: 06/10/21 10:13> Status: Acute <SOM Rivas - Last Filed: 06/10/21 10:13> Assessment and Plan: Followed in [place] <SOM Rivas - Last Filed: 06/10/21 10:13> (7) Hypertension associated with diabetes: Code(s): E11.59 - Type 2 diabetes mellitus with other circulatory complications; I15.2 - Hypertension secondary to endocrine disorders <SOM Rivas - Last Filed: 06/10/21 10:13> Status: Acute <SOM Rivas - Last Filed: 06/10/21 10:13> Assessment and Plan: Continue current meds. <SOM Rivas - Last Filed: 06/10/21 10:13> (8) Pulmonary hypertension: Code(s): I27.20 - Pulmonary hypertension, unspecified <SOM Rivas - Last Filed: 06/10/21 10:13> Status: Acute <SOM Rivas - Last Filed: 06/10/21 10:13> Assessment and Plan: Moderate <SOM Rivas - Last Filed: 06/10/21 10:13> Additional Plan Chronic chest pain that is atypical, musculoskeletal in nature. Improving with volume removal. He does not have any acute cardiac issues currently. Cardiology will sign o
--- NOTE | 2021-06-10 10:27 | PM.IMPN ---
Progress Note: A&P Assessment and Plan (1) Non compliance with medical treatment: Code(s): Z91.19 - Patient's noncompliance with other medical treatment and regimen Status: Acute Assessment and Plan: Counseling (2) End-stage renal disease on hemodialysis: Code(s): N18.6 - End stage renal disease; Z99.2 - Dependence on renal dialysis Status: Acute Assessment and Plan: -continue dialysis. Once patient reaches his euvolemic state he can likely be discharged. (3) Chest pain at rest: Code(s): R07.9 - Chest pain, unspecified Status: Acute (4) Type 1 diabetes: Qualifiers: Diabetes mellitus complication status: with other specified complication Qualified Code(s): E10.69 - Type 1 diabetes mellitus with other specified complication Code(s): E10.9 - Type 1 diabetes mellitus without complications Status: Chronic Assessment and Plan: Monitor blood sugars and continue insulin. (5) Back pain: Code(s): M54.9 - Dorsalgia, unspecified Status: Acute (6) Dysphagia: Code(s): R13.10 - Dysphagia, unspecified Status: Acute Assessment and Plan: Monitor for now Subjective Date/time seen: 06/10/21 10:27 Patient is still complaining of some mild chest discomfort. Also complaining of some mild back pain. Exam Narrative: Alert Chest decreased air entry bilateral positive bilateral crackles Abdomen nontender nondistended CVS S1 + S2 Positive bilateral lower extremity edema Const: General: cooperative, comfortable, no acute distress, well developed, alert, awake, ill appearing chronically and other (Anasarca) Nutritional Appearance: average body habitus Orientation/consciousness: patient oriented x3 HENMT: Head: normal to inspection, normocephalic and atraumatic Ears: hearing grossly normal bilaterally General nose exam: Normal external nose present Face and sinus: normal facial exam Mouth: Yes Normal oral and palatal mucosa present and Yes moist mucous membranes Eyes: General: appearance normal, both eyes and all related structures Alignment and Position: alignment normal Sclera: sclerae normal Pupils: Equal, round and reactive pupils present EOM: EOMs intact bilaterally Neck: Neck: normal visual inspection, full ROM, no lymphadenopathy, supple and no JVD Thyroid: thyroid normal Lymphatic: no lymphadenopathy noted Resp: Effort & Inspection: normal respiratory effort and able to speak in complete sentences Auscultation: clear to auscultation bilaterally, crackles, no rales, no rhonchi and no wheezes Cardio: Jugular venous distension: no JVD Rate: regular rate Rhythm: regular rhythm Heart sounds: S1 normal heart sound present and S2 normal heart sound present GI: Inspection: normal to inspection Auscultation: normal bowel sounds : General: Yes deferred Skin: General skin exam: normal color and pallor Rashes: no rashes Wounds: no wounds Neuro: General: patient oriented x3, CN's II-XI intact bilaterally and Unable to assess gait Cranial nerves: Yes CN's II-XII intact bilaterally and Yes Equal, round and reactive pupils present Cognition (Neuro): normal cognition Speech: normal speech Gait exam (Neuro): Unable to assess gait Motor exam (neuro): 5/5 motor strength present throughout Sensory Exam: No Sensory deficit (Neuro) Extrem: General: edema Psych: Mental Status: mental status grossly normal Affect: normal affect Objective Data Vital Signs Vital Signs: Vital Signs - 24 hr 06/09/21 10:30 06/09/21 11:00 06/09/21 11:15 Temperature Pulse Rate 76 78 80 Respiratory Rate Blood Pressure 90/42 L 131/87 118/43 L Pulse Oximetry 06/09/21 11:30 06/09/21 11:45 06/09/21 12:00 Temperature Pulse Rate 74 74 95 Respiratory Rate Blood Pressure 96/26 L 101/53 L 95/79 L Pulse Oximetry 06/09/21 12:15 06/09/21 12:30 06/09/21 12:45 Temperature Pulse Rate 76 74 72 Respiratory Rat
[2021-06-10 11:57] LABS: Glucose Point of Care 230 mg/dl (65-105)
--- NOTE | 2021-06-10 12:05 | PCSTNOTE ---
Please refer to the Modified Barium Swallow Evaluation in the EMR.
[2021-06-10 16:40] LABS: Glucose Point of Care 116 mg/dl (65-105)
[2021-06-10] MEDS: ATORVASTATIN 40 MG TABLET PO (20:19)
[2021-06-10] MEDS: AMITRIPTYLINE HCL 25 MG TABLET 50 MG PO (20:19)
[2021-06-10] MEDS: DEXTROSE 50% 25 GM/50 ML SYRINGE IV PUSH (20:45)
[2021-06-10 21:03] LABS: Glucose Point of Care 116 mg/dl (65-105)
[2021-06-10 21:03] LABS: Glucose Point of Care 50 mg/dl (65-105)
[2021-06-10 21:03] LABS: Glucose Point of Care 50 mg/dl (65-105)
[2021-06-11] VITALS (26 sets, daily range): BP systolic 106–161; BP diastolic 57–95; PULSE 66–91; RESP 14–20; TEMP 36.1–37.2; O2SAT 93–100
[2021-06-11] MEDS: HEPARIN SODIUM 5,000 UNITS/ML VIAL 5000 UNITS SUB-Q ×2 (00:17→08:40)
[2021-06-11] MEDS: HYDROcodone/acetaminophen (*CRX) 5-325 MG TABLET 1 TAB PO (00:17)
[2021-06-11] MEDS: DEXTROSE 50% 25 GM/50 ML SYRINGE IV PUSH ×2 (01:42→20:52)
[2021-06-11 02:00] LABS: Glucose Point of Care 42 mg/dl (65-105)
[2021-06-11 02:00] LABS: Glucose Point of Care 76 mg/dl (65-105)
[2021-06-11 03:20] LABS: Glucose Point of Care 79 mg/dl (65-105)
[2021-06-11] MEDS: LEVOTHYROXINE SODIUM 50 MCG TABLET PO (05:07)
[2021-06-11] MEDS: VALPROIC ACID 250 MG CAPSULE PO ×2 (05:07→20:46)
[2021-06-11] MEDS: MORPHINE SULFATE (*CRX) 2 MG/ML INJ IV PUSH (05:08)
[2021-06-11 05:16] LABS: Glucose Point of Care 92 mg/dl (65-105)
[2021-06-11 07:43] LABS: Glucose Point of Care 89 mg/dl (65-105)
[2021-06-11] MEDS: IRON SUCROSE COMPLEX 200 MG in SODIUM CHLORIDE 0.9% IV 50 ML 120 MG IVPB (08:36)
[2021-06-11] MEDS: CALCIUM ACETATE 667 MG TABLET 1334 MG PO ×3 (08:37→20:47)
[2021-06-11] MEDS: ESCITALOPRAM OXALATE 10 MG TABLET 20 MG PO (08:37)
[2021-06-11] MEDS: TERAZOSIN HCL 1 MG CAPSULE 2 MG PO ×2 (08:37→20:47)
[2021-06-11] MEDS: SEVELAMER CARBONATE 800 MG TABLET 2400 MG PO ×3 (08:38→20:47)
[2021-06-11] MEDS: PHENYTOIN SODIUM 100 MG EXTENDED RELEASE CAP PO ×2 (08:38→20:48)
[2021-06-11] MEDS: hydrALAZINE HCL 50 MG TABLET 100 MG PO ×2 (08:38→11:59)
[2021-06-11] MEDS: cloNIDine HCL 0.1 MG TABLET 0.3 MG PO (08:38)
--- NOTE | 2021-06-11 08:38 | PM.PNNEP ---
Progress Note: A&P Additional Plan 1. the patient has end-stage renal disease. This is due to diabetes and hypertension. he had Dialysis Wednesday and ultrafiltration yesterday and will do another dialysis today. 2. The patient has chest pain. This sounds musculoskeletal. He is getting evaluation by the cardiac team. 3. the patient has volume overload. This is chronic and stable. Removed 4 more L Yesterday and will take more off today. 4. Diabetes. The patient is on Accu-Cheks and sliding-scale insulin per hospitalist. 5. Renal osteodystrophy Phosphorus is down to 6.6 Yesterday. No labs back yet today. 6. Anemia of chronic kidney disease On EPO and Venofer. 7. Depression the patient is on antidepressants. 8. Back pain is better today. 9. Hypertension blood pressure Is up this morning Again. It improved with dialysis and stay low until this morning's level. This will enable us to remove more fluid. We might be able to cut back on some more medication as long as he does not drink a lot of fluid at home. He is on clonidine and carvedilol. Will try weaning clonidine so he is not on these 2 together. Okay for discharge at any time when okay with others. Subjective Date/time seen: 06/11/21 08:38 Interval history: Patient is alert. No back pain. Swelling is better. He has had 10L taken off over the last 2 days. Will try for another 6 today. Exam Narrative: WDWN in NAD skin no rash or subQ nodules head ncat lungs clear Bilaterally cor reg no rub or gallop abd BS+ nontender and soft ext 1-2+ edema. Objective Data Vital Signs Vital Signs: Vital Signs - 24 hr 06/10/21 09:05 06/10/21 09:07 06/10/21 12:00 Temperature Pulse Rate 92 87 Respiratory Rate Blood Pressure Pulse Oximetry 94 06/10/21 14:00 06/10/21 16:00 06/10/21 16:20 Temperature 36.3 C L 36.4 C L Pulse Rate 80 82 83 Respiratory Rate 18 18 Blood Pressure 133/76 126/71 Pulse Oximetry 97 06/10/21 16:30 06/10/21 16:45 06/10/21 17:00 Temperature Pulse Rate 83 83 82 Respiratory Rate Blood Pressure 127/75 126/70 122/68 Pulse Oximetry 06/10/21 17:15 06/10/21 17:30 06/10/21 17:45 Temperature Pulse Rate 83 82 82 Respiratory Rate Blood Pressure 112/60 118/69 118/68 Pulse Oximetry 06/10/21 18:00 06/10/21 18:15 06/10/21 18:30 Temperature Pulse Rate 82 82 83 Respiratory Rate Blood Pressure 122/68 119/68 124/69 Pulse Oximetry 06/10/21 18:45 06/10/21 19:00 06/10/21 19:15 Temperature Pulse Rate 83 82 83 Respiratory Rate Blood Pressure 115/69 123/66 135/78 Pulse Oximetry 06/10/21 19:31 06/10/21 19:45 06/10/21 19:52 Temperature 36.4 C L Pulse Rate 83 82 84 Respiratory Rate 18 Blood Pressure 114/71 120/60 Pulse Oximetry 06/10/21 20:00 06/10/21 20:19 06/11/21 00:00 Temperature 36.6 C Pulse Rate 83 79 90 Respiratory Rate 16 Blood Pressure 129/79 Pulse Oximetry 93 06/11/21 04:00 06/11/21 06:15 06/11/21 08:35 Temperature 36.5 C Pulse Rate 75 77 Respiratory Rate 16 Blood Pressure 160/89 H Pulse Oximetry 94 93 Intake/Output Intake/Output: Intake & Output 06/08/21 06/09/21 06/10/21 06/11/21 23:59 23:59 23:59 23:59 Intake Total 1170 1094 1260 Output Total 6000 4150 Balance 2392 -3349 -8823 Meds/Results Medications: Active Medications Generic Name Dose Route Start Last Admin Trade Name Freq PRN Reason Stop Dose Admin Hydrocodone Bitart/Acetaminophen 1 tab 06/09/21 15:48 06/11/21 00:17 Hydrocodone/Acetaminophen (*Crx) 5-325 Mg Tablet PO 1 tab Q6H PRN Administration Pain Rated 6 or Greater Albuterol 2 puff 06/07/21 03:59 Albuterol Sulfate (*Sp) Aerosol 1 Puff INHALATION Q6H PRN Wheezing Amitriptyline HCl 50 mg 06/07/21 21:00 06/10/21 20:19 Amitriptyline Hcl 25 Mg Tablet PO 50 mg HS BELKYS Administration Aspirin 81 mg
[2021-06-11] MEDS: FAMOTIDINE 20 MG TABLET PO (08:39)
[2021-06-11] MEDS: VITAMIN B CMPLX/VIT C/FOLIC AC 1 CAPSULE 1 CAP PO (08:39)
[2021-06-11] MEDS: LIDOCAINE 5% PATCH 1 PATCH TRANSDERM (08:40)
[2021-06-11] MEDS: carvediloL 25 MG TABLET PO ×2 (08:41→20:46)
[2021-06-11] MEDS: BUMETANIDE INJ 1 MG/4 ML VIAL 2 MG IV PUSH (08:41)
[2021-06-11] MEDS: levETIRAcetam 500 MG TABLET BY MOUTH (08:41)
[2021-06-11] MEDS: ASPIRIN 81 MG CHEWABLE TABLET PO (08:41)
[2021-06-11] MEDS: INSULIN GLARGINE (*BKC) 100 UNITS/ML 18 UNITS SUB-Q (08:45)
--- NOTE | 2021-06-11 10:20 | PM.IMPN ---
Progress Note: A&P Assessment and Plan (1) End-stage renal disease on hemodialysis: Code(s): N18.6 - End stage renal disease; Z99.2 - Dependence on renal dialysis Status: Acute Assessment and Plan: -nephrology: - Continue Telemetry - Accurate I&O. - Daily weight - Renal/diabetic diet -still have fluid overload continue dialysis and daily evaluation of diuresis (2) Volume overload: Qualifiers: Hypervolemia type: unspecified Qualified Code(s): E87.70 - Fluid overload, unspecified Code(s): E87.70 - Fluid overload, unspecified Status: Acute Assessment and Plan: Patient has skipped several treatments of dialysis Continue to monitor. Nephrology following status post dialysis IV albumin (3) Acute exacerbation of congestive heart failure: Qualifiers: Heart failure type: unspecified Qualified Code(s): I50.9 - Heart failure, unspecified Code(s): I50.9 - Heart failure, unspecified Status: Acute Assessment and Plan: Patient with chronic elevation of brain natriuretic peptide associated with pulmonary edema Continue dialysis and daily evaluation for diuresis diuresis (4) Type 1 diabetes: Qualifiers: Diabetes mellitus complication status: with other specified complication Qualified Code(s): E10.69 - Type 1 diabetes mellitus with other specified complication Code(s): E10.9 - Type 1 diabetes mellitus without complications Status: Chronic Assessment and Plan: Continue home meds Continue insulin Accu-Cheks AC and HS - Fasting glucose this AM is >400. SSI dose changed to high dosing and his Lantus 15 units at AM is changed to 22 units HS. - Continue hypoglycemic panel. - Continue glucose checks AC and HS. - Renal/diabetic diet. (5) Seizure disorder: Onset Date: 10/2019 Code(s): G40.909 - Epilepsy, unspecified, not intractable, without status epilepticus Status: Inactive Assessment and Plan: Seizure-free Continue home meds (6) Elevated troponin: Code(s): R77.8 - Other specified abnormalities of plasma proteins Status: Acute Assessment and Plan: Patient with chronic elevation of troponins. Echo Most likely related to NSTEMI type 2 secondary to demand ischemia monitor patient does not have chest pain (7) Diarrhea: Qualifiers: Diarrhea type: unspecified type Qualified Code(s): R19.7 - Diarrhea, unspecified Code(s): R19.7 - Diarrhea, unspecified Status: Acute Assessment and Plan: - Stool culture, Cryptosporidium, C-diff, and Giardia ordered. - Monitor labs and VS. - Accurate I&O ordered. -continue to monitor most likely related to renal failure (8) Non compliance with medical treatment: Code(s): Z91.19 - Patient's noncompliance with other medical treatment and regimen Status: Acute Assessment and Plan: Counseling Subjective Date/time seen: 06/11/21 10:20 Interval history: Patient has missed multiple dialysis chest x-ray on admission shows pulmonary edema Nephrology was consulted Status post dialysis diuresis IV albumin shortness of breath has improved but still patient have lower extremity edema Patient denies fever headache chest pain I am seeing the patient for shortness of breath Exam Narrative: Alert Chest decreased air entry bilateral positive bilateral crackles Abdomen nontender nondistended CVS S1 + S2 Positive bilateral lower extremity edema Objective Data Vital Signs Vital Signs: Vital Signs - 24 hr 06/10/21 12:00 06/10/21 14:00 06/10/21 16:00 Temperature 97.3 F L Pulse Rate 87 80 82 Respiratory Rate 18 Blood Pressure 133/76 Pulse Oximetry 97 06/10/21 16:20 06/10/21 16:30 06/10/21 16:45 Temperature 97.5 F L Pulse Rate 83 83 83 Respiratory Rate 18 Blood Pressure 126/71 127/75 126/70 Pulse Oximetry 06/10/21 17:00 06/10/21 17:15 06/10/21 17:
[2021-06-11 11:31] LABS: Basophils Percent Auto 0.3 % (0.2-1.2); Eosinophils Absolute Auto 0.7 K/mm3 (0-0.3); Hematocrit 23.8 % (42.0-52.0); Hemoglobin 7.4 g/dL (14.0-18.0); Immature Granulocyte Absolute 0.04 K/mm3 (0.00-0.031); Immature Granulocyte Percent A 0.6 % (0-0.5); Lymphocytes Percent Auto 16.4 % (18.3-44.2); Mean Corpuscular HGB Conc 31.1 g/dl (32-36); Mean Corpuscular Hemoglobin 30.6 pg (26-34); Mean Corpuscular Volume 98.3 fl (80-100); Mean Platelet Volume 9.4 fl (7.4-10.4); Monocytes Absolute Auto 0.9 K/mm3 (0.1-0.6); Monocytes Percent Auto 13.7 % (2.6-8.5); Neutrophils Absolute Auto 3.9 K/mm3 (1.3-6.7); Platelet Count Result 209 k/mm3 (150-375); Red Blood Count 2.42 M/mm3 (4.6-6.20); Red Cell Distribution Width 16.6 % (11.5-14.5); White Blood Count 6.7 K/mm3 (4.5-10.0)
[2021-06-11 11:46] LABS: Alanine Aminotransferase 18 U/L (4-50); Albumin Level 3.5 g/dL (3.5-5.1); Alkaline Phosphatase 158 U/L (38-126); Anion Gap 10 mmol/L (8-16); Aspartate Amino Transferase 28 U/L (17-59); Bilirubin,Total 0.5 mg/dL (0.2-1.3); Blood Urea Nitrogen 62 mg/dL (9-20); Calcium 9.1 mg/dL (8.4-10.2); Carbon Dioxide 31 mmol/L (22-30); Chloride 94 mmol/L (98-107); Estimated CRCL calculation 14 ml/min; Estimated Glomerular Filt Rate 9; Glucose 74 mg/dL (65-110); Potassium 5.3 mmol/L (3.4-5.0); Sodium 135 mmol/L (137-145)
[2021-06-11 11:53] LABS: Glucose Point of Care 57 mg/dl (65-105)
[2021-06-11 12:46] LABS: Glucose Point of Care 66 mg/dl (65-105)
[2021-06-11 15:09] LABS: Glucose Point of Care 77 mg/dl (65-105)
[2021-06-11 16:32] LABS: Glucose Point of Care 57 mg/dl (65-105)
--- NOTE | 2021-06-11 16:52 | PC.NURSE ---
Transferred to Dialysis [id number]
[2021-06-11] MEDS: EPOETIN ALFA-EPBX 10,000 UNITS/ML VIAL 10000 UNITS IV PUSH (18:52)
[2021-06-11] MEDS: GLUCAGON FOR INJ 1 MG VIAL IM (20:35)
[2021-06-11] MEDS: ATORVASTATIN 40 MG TABLET PO (20:46)
[2021-06-11] MEDS: AMITRIPTYLINE HCL 25 MG TABLET 50 MG PO (20:46)
[2021-06-11 21:51] LABS: Glucose Point of Care 33 mg/dl (65-105)
[2021-06-11 21:52] LABS: Glucose Point of Care 66 mg/dl (65-105)
[2021-06-11 21:52] LABS: Glucose Point of Care 154 mg/dl (65-105)
[2021-06-11 22:25] LABS: Glucose Point of Care 143 mg/dl (65-105)
[2021-06-12] VITALS (11 sets, daily range): BP systolic 130–160; BP diastolic 54–79; PULSE 80–93; RESP 12–18; TEMP 36.1–36.9; O2SAT 95–98
[2021-06-12 00:14] LABS: Glucose Point of Care 106 mg/dl (65-105)
[2021-06-12] MEDS: MORPHINE SULFATE (*CRX) 2 MG/ML INJ IV PUSH ×2 (02:48→21:46)
[2021-06-12] MEDS: GLUCOSE ORAL GEL 15 GM OF GLUCSE IN 37.5 GM TUBE PO (05:43)
[2021-06-12] MEDS: VALPROIC ACID 250 MG CAPSULE PO ×3 (05:44→21:28)
[2021-06-12] MEDS: LEVOTHYROXINE SODIUM 50 MCG TABLET PO (05:44)
[2021-06-12 06:04] LABS: Albumin Level 3.8 g/dL (3.5-5.1); Anion Gap 10 mmol/L (8-16); Blood Urea Nitrogen 45 mg/dL (9-20); Carbon Dioxide 31 mmol/L (22-30); Chloride 94 mmol/L (98-107); Estimated CRCL calculation 17 ml/min; Estimated Glomerular Filt Rate 11; Glucose 44 mg/dL (65-110); Phosphorus 5.9 mg/dL (2.5-4.5); Potassium 4.9 mmol/L (3.4-5.0); Sodium 135 mmol/L (137-145)
[2021-06-12] MEDS: DEXTROSE 50% 25 GM/50 ML SYRINGE IV PUSH (06:04)
[2021-06-12 06:25] LABS: Glucose Point of Care 45 mg/dl (65-105)
[2021-06-12 06:25] LABS: Glucose Point of Care 121 mg/dl (65-105)
[2021-06-12 06:25] LABS: Glucose Point of Care 45 mg/dl (65-105)
[2021-06-12 07:43] LABS: Glucose Point of Care 102 mg/dl (65-105)
[2021-06-12] MEDS: hydrALAZINE HCL 50 MG TABLET 100 MG PO ×3 (08:25→17:15)
[2021-06-12] MEDS: FAMOTIDINE 20 MG TABLET PO ×2 (08:25→17:15)
[2021-06-12] MEDS: HEPARIN SODIUM 5,000 UNITS/ML VIAL 5000 UNITS SUB-Q ×2 (08:25→17:16)
[2021-06-12] MEDS: LIDOCAINE 5% PATCH 1 PATCH TRANSDERM (08:27)
[2021-06-12] MEDS: cloNIDine HCL 0.2 MG TABLET PO ×2 (08:27→17:15)
[2021-06-12] MEDS: SEVELAMER CARBONATE 800 MG TABLET 2400 MG PO ×3 (08:27→17:14)
[2021-06-12] MEDS: PHENYTOIN SODIUM 100 MG EXTENDED RELEASE CAP PO ×3 (08:27→21:28)
[2021-06-12] MEDS: ESCITALOPRAM OXALATE 10 MG TABLET 20 MG PO (08:28)
[2021-06-12] MEDS: CALCIUM ACETATE 667 MG TABLET 1334 MG PO ×3 (08:28→17:14)
[2021-06-12] MEDS: carvediloL 25 MG TABLET PO ×2 (08:28→21:28)
[2021-06-12] MEDS: TERAZOSIN HCL 1 MG CAPSULE 2 MG PO ×2 (08:28→17:17)
[2021-06-12] MEDS: VITAMIN B CMPLX/VIT C/FOLIC AC 1 CAPSULE 1 CAP PO (08:29)
[2021-06-12] MEDS: ASPIRIN 81 MG CHEWABLE TABLET PO (08:30)
[2021-06-12] MEDS: IRON SUCROSE COMPLEX 200 MG in SODIUM CHLORIDE 0.9% IV 50 ML 120 MG IVPB (08:43)
--- NOTE | 2021-06-12 09:48 | PM.PNNEP ---
Progress Note: A&P Additional Plan 1. the patient has end-stage renal disease. This is due to diabetes and hypertension. he had Dialysis Wednesday and Wednesday. He will need not get dialysis today he will get his usual treatment tomorrow. This can happen either here if he is still here or at [facility] if he goes home. No objection for discharge from the kidney standpoint. 2. The patient has chest pain. This sounds musculoskeletal. He is getting evaluation by the cardiac team. 3. the patient has volume overload. This is chronic and Improving 4. Diabetes. The patient is on Accu-Cheks and sliding-scale insulin per hospitalist. 5. Renal osteodystrophy Phosphorus is down to 6.6 Yesterday. No labs back yet today. 6. Anemia of chronic kidney disease On EPO and Venofer. 7. Depression the patient is on antidepressants. 8. Back pain is better today. 9. Hypertension blood pressure this is up and down. It does decrease with removal of fluid. I think he will be on much less medication when he gets down to a real dry weight. Okay for discharge at any time when okay with others. Subjective Date/time seen: 06/12/21 09:48 Interval history: Patient is alert. No back pain. Swelling is better. Sitting up in a chair and eating. Exam Narrative: WDWN in NAD skin no rash or subQ nodules head ncat lungs clear Bilaterally cor reg no rub or gallop abd BS+ nontender and soft ext 1-2+ edema. Objective Data Vital Signs Vital Signs: Vital Signs - 24 hr 06/11/21 12:00 06/11/21 14:57 06/11/21 16:00 Temperature 36.1 C L Pulse Rate 81 77 81 Respiratory Rate 16 Blood Pressure 159/95 H Pulse Oximetry 98 06/11/21 16:10 06/11/21 16:15 06/11/21 16:30 Temperature 37.2 C Pulse Rate 89 81 78 Respiratory Rate 20 Blood Pressure 161/93 H 152/85 H 154/88 H Pulse Oximetry 06/11/21 16:45 06/11/21 17:00 06/11/21 17:15 Temperature Pulse Rate 81 81 82 Respiratory Rate Blood Pressure 145/72 H 130/70 139/82 Pulse Oximetry 06/11/21 17:30 06/11/21 18:00 06/11/21 18:15 Temperature Pulse Rate 81 82 86 Respiratory Rate Blood Pressure 118/69 122/64 133/72 Pulse Oximetry 06/11/21 18:30 06/11/21 18:45 06/11/21 19:00 Temperature Pulse Rate 83 87 66 Respiratory Rate Blood Pressure 121/70 119/61 120/62 Pulse Oximetry 06/11/21 19:15 06/11/21 19:50 06/11/21 20:00 Temperature 36.8 C Pulse Rate 87 91 84 Respiratory Rate 14 Blood Pressure 116/63 121/76 106/57 L Pulse Oximetry 100 06/11/21 20:20 06/11/21 20:46 06/12/21 00:00 Temperature 36.7 C Pulse Rate 89 68 83 Respiratory Rate 20 Blood Pressure 129/70 Pulse Oximetry 06/12/21 04:00 06/12/21 06:00 06/12/21 08:00 Temperature 36.9 C Pulse Rate 80 83 91 Respiratory Rate 12 Blood Pressure 149/71 H Pulse Oximetry 97 06/12/21 08:15 06/12/21 08:28 Temperature Pulse Rate 83 83 Respiratory Rate 14 Blood Pressure 160/79 H Pulse Oximetry 98 Intake/Output Intake/Output: Intake & Output 06/09/21 06/10/21 06/11/21 06/12/21 23:59 23:59 23:59 23:59 Intake Total 1094 1260 1012 0 Output Total 6000 4150 5684 0 Balance -4906 -2890 -4672 0 Meds/Results Medications: Active Medications Generic Name Dose Route Start Last Admin Trade Name Freq PRN Reason Stop Dose Admin Hydrocodone Bitart/Acetaminophen 1 tab 06/09/21 15:48 06/11/21 00:17 Hydrocodone/Acetaminophen (*Crx) 5-325 Mg Tablet PO 1 tab Q6H PRN Administration Pain Rated 6 or Greater Albuterol 2 puff 06/07/21 03:59 Albuterol Sulfate (*Sp) Aerosol 1 Puff INHALATION Q6H PRN Wheezing Amitriptyline HCl 50 mg 06/07/21 21:00 06/11/21 20:46 Amitriptyline Hcl 25 Mg Tablet PO 50 mg HS BELKYS Administration Aspirin 81 mg 06/07/21 08:00 06/12/21 08:30 Aspirin 81 Mg Chewable Tablet PO 81 mg DAILY@0800 BELKYS Administration Atorvastat
--- NOTE | 2021-06-12 10:10 | PM.IMPN ---
Progress Note: A&P Assessment and Plan (1) End-stage renal disease on hemodialysis: Code(s): N18.6 - End stage renal disease; Z99.2 - Dependence on renal dialysis Status: Acute Assessment and Plan: -nephrology: - Continue Telemetry - Accurate I&O. - Daily weight - Renal -still have fluid overload continue dialysis and daily evaluation of diuresis (2) Volume overload: Qualifiers: Hypervolemia type: unspecified Qualified Code(s): E87.70 - Fluid overload, unspecified Code(s): E87.70 - Fluid overload, unspecified Status: Acute Assessment and Plan: Patient has skipped several treatments of dialysis Continue to monitor. Nephrology following status post dialysis IV albumin (3) Acute exacerbation of congestive heart failure: Qualifiers: Heart failure type: unspecified Qualified Code(s): I50.9 - Heart failure, unspecified Code(s): I50.9 - Heart failure, unspecified Status: Acute Assessment and Plan: Patient with chronic elevation of brain natriuretic peptide associated with pulmonary edema Continue dialysis and daily evaluation for diuresis diuresis (4) Type 1 diabetes: Qualifiers: Diabetes mellitus complication status: with other specified complication Qualified Code(s): E10.69 - Type 1 diabetes mellitus with other specified complication Code(s): E10.9 - Type 1 diabetes mellitus without complications Status: Chronic Assessment and Plan: Continue home meds Continue insulin Accu-Cheks AC and HS -during admission Fasting glucose is >400. SSI dose changed to high dosing and his Lantus 15 units at AM is changed to 22 units HS. Then on 06/11/2021 patient blood sugar dropped to 50s and 30s Lantus dose was decreased to 9 units and on also changed to low sliding scale - Continue hypoglycemic panel. - Continue glucose checks AC and HS. - Renal -diabetic diet was discontinued due to hypoglycemia Monitor closely if blood sugar uncontrolled resume diabetic diet 1st then adjust the dose of insulin if appropriate. (5) Seizure disorder: Onset Date: 10/2019 Code(s): G40.909 - Epilepsy, unspecified, not intractable, without status epilepticus Status: Inactive Assessment and Plan: Seizure-free Continue home meds (6) Elevated troponin: Code(s): R77.8 - Other specified abnormalities of plasma proteins Status: Acute Assessment and Plan: Patient with chronic elevation of troponins. Echo Most likely related to NSTEMI type 2 secondary to demand ischemia monitor patient does not have chest pain (7) Diarrhea: Qualifiers: Diarrhea type: unspecified type Qualified Code(s): R19.7 - Diarrhea, unspecified Code(s): R19.7 - Diarrhea, unspecified Status: Acute Assessment and Plan: - Stool culture, Cryptosporidium, C-diff, and Giardia ordered. - Monitor labs and VS. - Accurate I&O ordered. -continue to monitor most likely related to renal failure (8) Non compliance with medical treatment: Code(s): Z91.19 - Patient's noncompliance with other medical treatment and regimen Status: Acute Assessment and Plan: Counseling Subjective Date/time seen: 06/12/21 10:10 Interval history: Patient has missed multiple dialysis chest x-ray on admission shows pulmonary edema Nephrology was consulted Status post dialysis diuresis IV albumin shortness of breath has improved but still patient have lower extremity edema Overnight patient has multiple episodes of hypoglycemia Lantus dose was adjusted sliding scale was adjusted patient was started on renal diet diabetic diet was discontinued Patient denies fever headache chest pain I am seeing the patient for shortness of breath Exam Narrative: Alert Chest decreased air entry bilateral positive bilateral crackles Abdomen nontender nondistended CVS S1 + S2 Positive bilateral lower extre
[2021-06-12] MEDS: HYDROcodone/acetaminophen (*CRX) 5-325 MG TABLET 1 TAB PO (10:25)
[2021-06-12 10:40] LABS: Glucose Point of Care 206 mg/dl (65-105)
[2021-06-12 11:43] LABS: Glucose Point of Care 241 mg/dl (65-105)
[2021-06-12 13:25] LABS: Glucose Point of Care 214 mg/dl (65-105)
[2021-06-12 16:45] LABS: Glucose Point of Care 233 mg/dl (65-105)
[2021-06-12] MEDS: INSULIN ASPART (*BKC) 100 UNITS/ML SUB-Q (17:16)
[2021-06-12] MEDS: ATORVASTATIN 40 MG TABLET PO (21:27)
[2021-06-12] MEDS: AMITRIPTYLINE HCL 25 MG TABLET 50 MG PO (21:28)
[2021-06-12 21:54] LABS: Glucose Point of Care 282 mg/dl (65-105)
[2021-06-13] VITALS (22 sets, daily range): BP systolic 101–195; BP diastolic 56–95; PULSE 70–95; RESP 17–19; TEMP 36–37; O2SAT 92–100
[2021-06-13] MEDS: HEPARIN SODIUM 5,000 UNITS/ML VIAL 5000 UNITS SUB-Q ×3 (00:56→16:17)
[2021-06-13] MEDS: MORPHINE SULFATE (*CRX) 2 MG/ML INJ IV PUSH ×5 (02:10→22:27)
[2021-06-13] MEDS: LEVOTHYROXINE SODIUM 50 MCG TABLET PO (05:44)
[2021-06-13] MEDS: VALPROIC ACID 250 MG CAPSULE PO ×3 (05:45→21:58)
[2021-06-13 07:48] LABS: Glucose Point of Care 202 mg/dl (65-105)
[2021-06-13] MEDS: INSULIN ASPART (*BKC) 100 UNITS/ML SUB-Q (09:08)
[2021-06-13] MEDS: TERAZOSIN HCL 1 MG CAPSULE 2 MG PO ×2 (09:11→16:15)
[2021-06-13] MEDS: PHENYTOIN SODIUM 100 MG EXTENDED RELEASE CAP PO ×3 (09:11→21:58)
[2021-06-13] MEDS: SEVELAMER CARBONATE 800 MG TABLET 2400 MG PO ×3 (09:11→16:16)
[2021-06-13] MEDS: hydrALAZINE HCL 50 MG TABLET 100 MG PO ×3 (09:12→16:16)
[2021-06-13] MEDS: CALCIUM ACETATE 667 MG TABLET 1334 MG PO ×3 (09:12→16:15)
[2021-06-13] MEDS: VITAMIN B CMPLX/VIT C/FOLIC AC 1 CAPSULE 1 CAP PO (09:13)
[2021-06-13] MEDS: carvediloL 25 MG TABLET PO ×2 (09:13→21:58)
[2021-06-13] MEDS: cloNIDine HCL 0.2 MG TABLET PO ×2 (09:13→16:17)
[2021-06-13] MEDS: ESCITALOPRAM OXALATE 10 MG TABLET 20 MG PO (09:13)
[2021-06-13] MEDS: FAMOTIDINE 20 MG TABLET PO ×2 (09:13→16:17)
[2021-06-13] MEDS: ASPIRIN 81 MG CHEWABLE TABLET PO (09:14)
--- NOTE | 2021-06-13 09:39 | PCCDE ---
Chart reviewed due to notification of severe hypoglycemia on 06/09 and 06/11. Pt was receiving 22 units Lantus and high dose correction scale at that time. Noted Lantus to be on hold this am. Pt has Type 1 DM and requires basal insulin. Called hospitalist who has not yet arrived to the hospital and brought to his attention. Also discussed with RN. Considering T1D and ESRD would recommend: 11 units Lantus daily, 3 units Novolog TIDWM and LOW dose correction scale.
[2021-06-13 11:06] LABS: Alanine Aminotransferase 17 U/L (4-50); Albumin Level 3.5 g/dL (3.5-5.1); Alkaline Phosphatase 181 U/L (38-126); Anion Gap 10 mmol/L (8-16); Aspartate Amino Transferase 42 U/L (17-59); Bilirubin,Total 0.5 mg/dL (0.2-1.3); Blood Urea Nitrogen 60 mg/dL (9-20); Calcium 9.2 mg/dL (8.4-10.2); Carbon Dioxide 32 mmol/L (22-30); Chloride 91 mmol/L (98-107); Estimated CRCL calculation 14 ml/min; Estimated Glomerular Filt Rate 8; Glucose 223 mg/dL (65-110); Potassium 5.2 mmol/L (3.4-5.0); Sodium 133 mmol/L (137-145)
[2021-06-13 11:09] LABS: Basophils Percent Auto 0.4 % (0.2-1.2); Eosinophils Absolute Auto 0.8 K/mm3 (0-0.3); Eosinophils Percent Auto 11.8 % (0-4.4); Hematocrit 25.5 % (42.0-52.0); Immature Granulocyte Absolute 0.04 K/mm3 (0.00-0.031); Immature Granulocyte Percent A 0.6 % (0-0.5); Lymphocytes Absolute Auto 0.96 K/mm3 (0.9-3.2); Mean Corpuscular HGB Conc 31.4 g/dl (32-36); Mean Corpuscular Hemoglobin 30.7 pg (26-34); Mean Corpuscular Volume 97.7 fl (80-100); Mean Platelet Volume 8.9 fl (7.4-10.4); Monocytes Absolute Auto 0.7 K/mm3 (0.1-0.6); Monocytes Percent Auto 10.5 % (2.6-8.5); Neutrophils Absolute Auto 4.3 K/mm3 (1.3-6.7); Neutrophils Percent Auto 62.7 % (45.5-73.1); Platelet Count Result 220 k/mm3 (150-375); Red Blood Count 2.61 M/mm3 (4.6-6.20); Red Cell Distribution Width 16.8 % (11.5-14.5); White Blood Count 6.9 K/mm3 (4.5-10.0)
--- NOTE | 2021-06-13 11:21 | PCNWS ---
Weekly nutritional screen. Patient screened in for 7 day length of stay. Patient is tolerating current diet with adequate intake. No nutritional interventions at this time. No nutritional needs at this time. Will follow up in 7 days if pt has not been discharged.
[2021-06-13 12:32] LABS: Glucose Point of Care 163 mg/dl (65-105)
--- NOTE | 2021-06-13 13:13 | P.PNNP_ITS ---
Progress Note: A&P Assessment and Plan (1) End stage renal disease: Code(s): N18.6 - End stage renal disease Status: Chronic Assessment and Plan: * HD today and continue M/W/F dialysis schedule * due to diabetes and hypertension * follow electrolytes, volume status, and clearance (2) Volume overload: Code(s): E87.70 - Fluid overload, unspecified Status: Chronic Assessment and Plan: * ongoing and chronic issue * suspect chest pain on admission related to this issue * history of large fluid gain inbetween dialysis treatments - this was worsened by his missed treatments * fluid fluid removal with HD/DUF as tolerated (3) Hypertension: Code(s): I10 - Essential (primary) hypertension Status: Chronic Assessment and Plan: * chronically elevated but suspect related to fluid overload * BP usually improved with ultrafiltration as noted today * continue home medications * follow trend of hemodynamics (4) Anemia: Code(s): D64.9 - Anemia, unspecified Status: Chronic Assessment and Plan: * related to ESRD and iron deficiency * getting Epogen and venofer * follow trend of H/H (5) Anxiety and depression: Code(s): F41.9 - Anxiety disorder, unspecified; F32.A - Depression, unspecified Status: Chronic Assessment and Plan: * chronic issue * continue current medications (6) Diabetes: Code(s): E11.9 - Type 2 diabetes mellitus without complications Status: Chronic Assessment and Plan: * brittle control at baseline * follow accuchecks * on Lantus and SSI Not opposed to discharge from renal perspective if otherwise medically stable. Will continue to follow. Subjective Date/time seen: 06/13/21 13:13 Chart reviewed - assuming care from Dr. Sage; patient tolerating hemodialysis at the time of my visit (seen on HD at ~ 1:00PM); fluid removal turned off at this time due to cramping but was able to get off another 3L of fluid; overall, he states that he feels better since admission; asking about potential discharge today. Exam 2 Narrative: General: WD/WN male in NAD Heart: normal S1 and S2; no rub Lungs: clear anteriorly but decreased at bases Abdomen: soft, nontender, nondistended, positive bowel sounds Extremities: no cyanosis or clubbing; trace - 1+ edema Skin: warm and dry Objective Data Vital Signs Vital Signs: Vital Signs Temp Pulse Resp BP Pulse Ox 06/13/21 13:00 78 115/67 06/13/21 12:45 79 120/68 06/13/21 12:30 81 118/69 06/13/21 12:15 79 115/71 06/13/21 12:00 81 126/84 06/13/21 11:45 79 131/81 06/13/21 11:30 80 143/77 H 06/13/21 11:15 81 157/87 H 06/13/21 11:00 80 183/95 H 06/13/21 10:47 36.2 C L 81 19 195/89 H 92 06/13/21 09:13 86 06/13/21 08:00 93 06/13/21 06:00 36.2 C L 86 18 182/80 H 100 06/12/21 21:28 93 96 06/12/21 20:00 36.1 C L 93 18 152/54 H 96 06/12/21 16:00 83 Intake/Output Intake/Output: Intake & Output 06/10/21 06/11/21 06/12/21 06/13/21 23:59 23:59 23:59 23:59 Intake Total 1260 1012 360 658 Output Total 0742 5797 0 Zkjnmuf -9705 -4679 808 778 Meds/Res
--- NOTE | 2021-06-13 13:13 | PM.PNNEP ---
Progress Note: A&P Assessment and Plan (1) End stage renal disease: Code(s): N18.6 - End stage renal disease Status: Chronic Assessment and Plan: HD today and continue M/W/F dialysis schedule due to diabetes and hypertension follow electrolytes, volume status, and clearance (2) Volume overload: Code(s): E87.70 - Fluid overload, unspecified Status: Chronic Assessment and Plan: ongoing and chronic issue suspect chest pain on admission related to this issue history of large fluid gain inbetween dialysis treatments - this was worsened by his missed treatments fluid fluid removal with HD/DUF as tolerated (3) Hypertension: Code(s): I10 - Essential (primary) hypertension Status: Chronic Assessment and Plan: chronically elevated but suspect related to fluid overload BP usually improved with ultrafiltration as noted today continue home medications follow trend of hemodynamics (4) Anemia: Code(s): D64.9 - Anemia, unspecified Status: Chronic Assessment and Plan: related to ESRD and iron deficiency getting Epogen and venofer follow trend of H/H (5) Anxiety and depression: Code(s): F41.9 - Anxiety disorder, unspecified; F32.A - Depression, unspecified Status: Chronic Assessment and Plan: chronic issue continue current medications (6) Diabetes: Code(s): E11.9 - Type 2 diabetes mellitus without complications Status: Chronic Assessment and Plan: brittle control at baseline follow accuchecks on Lantus and SSI Not opposed to discharge from renal perspective if otherwise medically stable. Will continue to follow. Subjective Date/time seen: 06/13/21 13:13 Chart reviewed - assuming care from Dr. Sage; patient tolerating hemodialysis at the time of my visit (seen on HD at ~ 1:00PM); fluid removal turned off at this time due to cramping but was able to get off another 3L of fluid; overall, he states that he feels better since admission; asking about potential discharge today. Exam Narrative: General: WD/WN male in NAD Heart: normal S1 and S2; no rub Lungs: clear anteriorly but decreased at bases Abdomen: soft, nontender, nondistended, positive bowel sounds Extremities: no cyanosis or clubbing; trace - 1+ edema Skin: warm and dry Objective Data Vital Signs Vital Signs: Vital Signs Temp Pulse Resp BP Pulse Ox 06/13/21 13:00 78 115/67 06/13/21 12:45 79 120/68 06/13/21 12:30 81 118/69 06/13/21 12:15 79 115/71 06/13/21 12:00 81 126/84 06/13/21 11:45 79 131/81 06/13/21 11:30 80 143/77 H 06/13/21 11:15 81 157/87 H 06/13/21 11:00 80 183/95 H 06/13/21 10:47 36.2 C L 81 19 195/89 H 92 06/13/21 09:13 86 06/13/21 08:00 93 06/13/21 06:00 36.2 C L 86 18 182/80 H 100 06/12/21 21:28 93 96 06/12/21 20:00 36.1 C L 93 18 152/54 H 96 06/12/21 16:00 83 Intake/Output Intake/Output: Intake & Output 06/10/21 06/11/21 06/12/21 06/13/21 23:59 23:59 23:59 23:59 Intake Total 1260 1012 360 658 Output Total 4150 5684 0 Balance -2890 -4672 360 658 Meds/Results Medications: Active Medications Generic Name Dose Route Start Last Admin Trade Name Catarinoq PRN Reason Stop Dose Admin Hydrocodone Bitart/Acetaminophen 1 tab 06/09/21 15:48 06/12/21 10:25 Hydrocodone/Acetaminophen (*Crx) 5-325 Mg Tablet PO 1 tab Q6H PRN Administration Pain Rated 6 or Greater Albuterol 2 puff 06/07/21 03:59 Albuterol Sulfate (*Sp) Aerosol 1 Puff INHALATION Q6H PRN Wheezing Amitriptyline HCl 50 mg 06/07/21 21:00 06/12/21 21:28 Amitriptyline Hcl 25 Mg Tablet PO 50 mg HS BELKYS Administration Aspirin 81 mg 06/07/21 08:00 06/13/21 09:14 Aspirin 81 Mg Chewable Tablet PO 81 mg DAILY@0800 BELKYS Administration Atorvastatin Calcium 40 mg 06/07/21 21:00 06/12/21
[2021-06-13] MEDS: EPOETIN ALFA-EPBX 10,000 UNITS/ML VIAL 10000 UNITS IV PUSH (13:35)
[2021-06-13 15:56] LABS: Glucose Point of Care 174 mg/dl (65-105)
--- NOTE | 2021-06-13 18:41 | PM.IMPN ---
Progress Note: A&P Assessment and Plan (1) End-stage renal disease on hemodialysis: Code(s): N18.6 - End stage renal disease; Z99.2 - Dependence on renal dialysis Status: Acute Assessment and Plan: -nephrology: - Continue Telemetry - Accurate I&O. - Daily weight - Renal -still have fluid overload continue dialysis and daily evaluation of diuresis 06/13/2021 Interval history: 40-year-old male with history of end-stage renal disease on hemodialysis patient states prior to coming to emergency department was having diarrhea and and missed his couple of hemodialysis and presented emergency department with complaint of chest pain secondary to volume overload resulting exacerbation of congestive heart failure patient was started on hemodialysis since then symptoms have improved patient was also found to have elevated tropes mild most likely secondary to demand ischemia due to volume overload patient was seen by parking patroller would not suspect acute coronary syndrome and there was no systemic workup was recommended, today patient seen in dialysis is feeling much better compared to when he arrived denies any abdominal pain nausea or vomiting, will continue to monitor patient be seen by his tire buster further recommendation to follow. (2) Volume overload: Qualifiers: Hypervolemia type: unspecified Qualified Code(s): E87.70 - Fluid overload, unspecified Code(s): E87.70 - Fluid overload, unspecified Status: Acute Assessment and Plan: Patient has skipped several treatments of dialysis Continue to monitor. Nephrology following status post dialysis IV albumin (3) Acute exacerbation of congestive heart failure: Qualifiers: Heart failure type: unspecified Qualified Code(s): I50.9 - Heart failure, unspecified Code(s): I50.9 - Heart failure, unspecified Status: Acute Assessment and Plan: Patient with chronic elevation of brain natriuretic peptide associated with pulmonary edema Continue dialysis and daily evaluation for diuresis diuresis (4) Type 1 diabetes: Qualifiers: Diabetes mellitus complication status: with other specified complication Qualified Code(s): E10.69 - Type 1 diabetes mellitus with other specified complication Code(s): E10.9 - Type 1 diabetes mellitus without complications Status: Chronic Assessment and Plan: Continue home meds Continue insulin Accu-Cheks AC and HS -during admission Fasting glucose is >400. SSI dose changed to high dosing and his Lantus 15 units at AM is changed to 22 units HS. Then on 06/11/2021 patient blood sugar dropped to 50s and 30s Lantus dose was decreased to 9 units and on also changed to low sliding scale - Continue hypoglycemic panel. - Continue glucose checks AC and HS. - Renal -diabetic diet was discontinued due to hypoglycemia Monitor closely if blood sugar uncontrolled resume diabetic diet 1st then adjust the dose of insulin if appropriate. (5) Seizure disorder: Onset Date: 10/2019 Code(s): G40.909 - Epilepsy, unspecified, not intractable, without status epilepticus Status: Inactive Assessment and Plan: Seizure-free Continue home meds (6) Elevated troponin: Code(s): R77.8 - Other specified abnormalities of plasma proteins Status: Acute Assessment and Plan: Patient with chronic elevation of troponins. Echo Most likely related to NSTEMI type 2 secondary to demand ischemia monitor patient does not have chest pain (7) Diarrhea: Qualifiers: Diarrhea type: unspecified type Qualified Code(s): R19.7 - Diarrhea, unspecified Code(s): R19.7 - Diarrhea, unspecified Status: Acute Assessment and Plan: - Stool culture, Cryptosporidium, C-diff, and Giardia ordered. - Monitor labs and VS. - Accurate I&O ordered. -continue to monitor most likely related to renal failure (8) Non compliance with me
[2021-06-13] MEDS: AMITRIPTYLINE HCL 25 MG TABLET 50 MG PO (21:57)
[2021-06-13] MEDS: ATORVASTATIN 40 MG TABLET PO (21:57)
[2021-06-13 22:08] LABS: Glucose Point of Care 199 mg/dl (65-105)
[2021-06-14] MEDS: HEPARIN SODIUM 5,000 UNITS/ML VIAL 5000 UNITS SUB-Q ×2 (00:51→09:14)
[2021-06-14] MEDS: VALPROIC ACID 250 MG CAPSULE PO (05:21)
[2021-06-14] MEDS: MORPHINE SULFATE (*CRX) 2 MG/ML INJ IV PUSH ×3 (05:21→12:48)
[2021-06-14] MEDS: LEVOTHYROXINE SODIUM 50 MCG TABLET PO (05:30)
[2021-06-14 06:00] VITALS: BP 180/79; PULSE 83; RESP 18; TEMP 36.3; O2SAT 97
[2021-06-14 08:00] VITALS: PULSE 79; RESP 14; O2SAT 95
[2021-06-14 08:17] LABS: Glucose Point of Care 190 mg/dl (65-105)
[2021-06-14] MEDS: TERAZOSIN HCL 1 MG CAPSULE 2 MG PO (09:13)
[2021-06-14] MEDS: hydrALAZINE HCL 50 MG TABLET 100 MG PO ×2 (09:13→12:53)
[2021-06-14] MEDS: PHENYTOIN SODIUM 100 MG EXTENDED RELEASE CAP PO ×2 (09:13→12:53)
[2021-06-14] MEDS: levETIRAcetam 500 MG TABLET BY MOUTH (09:13)
[2021-06-14] MEDS: FAMOTIDINE 20 MG TABLET PO (09:14)
[2021-06-14] MEDS: ASPIRIN 81 MG CHEWABLE TABLET PO (09:14)
[2021-06-14] MEDS: SEVELAMER CARBONATE 800 MG TABLET 2400 MG PO ×2 (09:14→12:53)
[2021-06-14] MEDS: VITAMIN B CMPLX/VIT C/FOLIC AC 1 CAPSULE 1 CAP PO (09:14)
[2021-06-14] MEDS: CALCIUM ACETATE 667 MG TABLET 1334 MG PO ×2 (09:15→12:52)
[2021-06-14] MEDS: carvediloL 25 MG TABLET PO (09:15)
[2021-06-14] MEDS: cloNIDine HCL 0.2 MG TABLET PO (09:15)
[2021-06-14] MEDS: LIDOCAINE 5% PATCH 1 PATCH TRANSDERM (09:16)
[2021-06-14] MEDS: ESCITALOPRAM OXALATE 10 MG TABLET 20 MG PO (09:16)
[2021-06-14 11:47] LABS: Hematocrit 25.2 % (42.0-52.0); Hemoglobin 8.1 g/dL (14.0-18.0); Mean Corpuscular HGB Conc 32.1 g/dl (32-36); Mean Corpuscular Hemoglobin 31.3 pg (26-34); Mean Corpuscular Volume 97.3 fl (80-100); Mean Platelet Volume 8.6 fl (7.4-10.4); Platelet Count Result 214 k/mm3 (150-375); Red Blood Count 2.59 M/mm3 (4.6-6.20); Red Cell Distribution Width 17.1 % (11.5-14.5); White Blood Count 6.4 K/mm3 (4.5-10.0)
[2021-06-14 11:58] LABS: Magnesium 2.3 mg/dL (1.6-2.3)
[2021-06-14 12:01] LABS: Albumin Level 3.6 g/dL (3.5-5.1); Anion Gap 10 mmol/L (8-16); Blood Urea Nitrogen 33 mg/dL (9-20); Carbon Dioxide 30 mmol/L (22-30); Chloride 95 mmol/L (98-107); Estimated CRCL calculation 18 ml/min; Estimated Glomerular Filt Rate 12; Glucose 266 mg/dL (65-110); Sodium 135 mmol/L (137-145)
[2021-06-14 12:28] LABS: Glucose Point of Care 252 mg/dl (65-105)
[2021-06-14] MEDS: INSULIN ASPART (*BKC) 100 UNITS/ML SUB-Q (12:54)
--- NOTE | 2021-06-14 13:02 | P.PNNP_ITS ---
Progress Note: A&P Assessment and Plan (1) End stage renal disease: Code(s): N18.6 - End stage renal disease Status: Chronic Assessment and Plan: * HD yesterday and continue M/W/F dialysis schedule * due to diabetes and hypertension * follow electrolytes, volume status, and clearance (2) Volume overload: Code(s): E87.70 - Fluid overload, unspecified Status: Chronic Assessment and Plan: * ongoing and chronic issue * suspect chest pain on admission related to this issue * history of large fluid gain inbetween dialysis treatments - this was worsened by his missed treatments * fluid fluid removal with HD/DUF as tolerated (3) Hypertension: Code(s): I10 - Essential (primary) hypertension Status: Chronic Assessment and Plan: * chronically elevated but suspect related to fluid overload * BP usually improved with ultrafiltration as noted today * continue home medications * follow trend of hemodynamics (4) Anemia: Code(s): D64.9 - Anemia, unspecified Status: Chronic Assessment and Plan: * related to ESRD and iron deficiency * getting Epogen and venofer * follow trend of H/H (5) Anxiety and depression: Code(s): F41.9 - Anxiety disorder, unspecified; F32.A - Depression, unspecified Status: Chronic Assessment and Plan: * chronic issue * continue current medications (6) Diabetes: Code(s): E11.9 - Type 2 diabetes mellitus without complications Status: Chronic Assessment and Plan: * brittle control at baseline * follow accuchecks * on Lantus and SSI Not opposed to discharge from renal perspective if otherwise medically stable. Will continue to follow. Subjective Date/time seen: 06/14/21 13:02 Tolerated dialysis yesterday with ~ 3L fluid removal -- attempted more aggressiv e fluid removal but he did not tolerated due to severe cramping; breathing/respiratory status doing much better in general; no acute issues/events overnight or earlier this AM. Exam Narrative: General: WD/WN male in NAD Heart: normal S1 and S2; no rub Lungs: clear anteriorly but decreased at bases Abdomen: soft, nontender, nondistended, positive bowel sounds Extremities: no cyanosis or clubbing; trace - 1+ edema Skin: warm and intact Objective Data Vital Signs Vital Signs: Vital Signs Temp Pulse Resp BP Pulse Ox 06/14/21 08:00 79 14 95 06/14/21 06:00 36.3 C L 83 18 180/79 H 97 06/13/21 21:58 88 06/13/21 20:00 36.6 C 95 18 155/68 H 95 Intake/Output Intake/Output: Intake & Output 06/11/21 06/12/21 06/13/21 06/14/21 23:59 23:59 23:59 23:59 Intake Total 1012 492 277 7167 Output Total 5684 0 3036 Bmihvmd -5503 360 -3008 1500 Meds/Results Medications: Active Medications Generic Name Dose Route Start Last Admin Trade Name Freq PRN Reason Stop Dose Admin Hydrocodone Bitart/Acetaminophen 1 tab 06/09/21 15:48 06/12/21 10:25 Hydrocodone/Acetaminophen (*Crx) 5-325 Mg Tablet PO 1 tab Q6H PRN Administration Pain Rated 6 or Greater Albuterol 2 puff 06/07/21 03:59 Albuterol Sulfate (*Sp) Aerosol 1 Puff INHALATION Q6H PRN Wheezing Am
--- NOTE | 2021-06-14 13:02 | PM.PNNEP ---
Progress Note: A&P Assessment and Plan (1) End stage renal disease: Code(s): N18.6 - End stage renal disease Status: Chronic Assessment and Plan: HD yesterday and continue M/W/F dialysis schedule due to diabetes and hypertension follow electrolytes, volume status, and clearance (2) Volume overload: Code(s): E87.70 - Fluid overload, unspecified Status: Chronic Assessment and Plan: ongoing and chronic issue suspect chest pain on admission related to this issue history of large fluid gain inbetween dialysis treatments - this was worsened by his missed treatments fluid fluid removal with HD/DUF as tolerated (3) Hypertension: Code(s): I10 - Essential (primary) hypertension Status: Chronic Assessment and Plan: chronically elevated but suspect related to fluid overload BP usually improved with ultrafiltration as noted today continue home medications follow trend of hemodynamics (4) Anemia: Code(s): D64.9 - Anemia, unspecified Status: Chronic Assessment and Plan: related to ESRD and iron deficiency getting Epogen and venofer follow trend of H/H (5) Anxiety and depression: Code(s): F41.9 - Anxiety disorder, unspecified; F32.A - Depression, unspecified Status: Chronic Assessment and Plan: chronic issue continue current medications (6) Diabetes: Code(s): E11.9 - Type 2 diabetes mellitus without complications Status: Chronic Assessment and Plan: brittle control at baseline follow accuchecks on Lantus and SSI Not opposed to discharge from renal perspective if otherwise medically stable. Will continue to follow. Subjective Date/time seen: 06/14/21 13:02 Tolerated dialysis yesterday with ~ 3L fluid removal -- attempted more aggressive fluid removal but he did not tolerated due to severe cramping; breathing/respiratory status doing much better in general; no acute issues/events overnight or earlier this AM. Exam Narrative: General: WD/WN male in NAD Heart: normal S1 and S2; no rub Lungs: clear anteriorly but decreased at bases Abdomen: soft, nontender, nondistended, positive bowel sounds Extremities: no cyanosis or clubbing; trace - 1+ edema Skin: warm and intact Objective Data Vital Signs Vital Signs: Vital Signs Temp Pulse Resp BP Pulse Ox 06/14/21 08:00 79 14 95 06/14/21 06:00 36.3 C L 83 18 180/79 H 97 06/13/21 21:58 88 06/13/21 20:00 36.6 C 95 18 155/68 H 95 Intake/Output Intake/Output: Intake & Output 06/11/21 06/12/21 06/13/21 06/14/21 23:59 23:59 23:59 23:59 Intake Total 1012 224 803 3697 Output Total 5684 0 3036 Balance -4672 360 -2138 1500 Meds/Results Medications: Active Medications Generic Name Dose Route Start Last Admin Trade Name Freq PRN Reason Stop Dose Admin Hydrocodone Bitart/Acetaminophen 1 tab 06/09/21 15:48 06/12/21 10:25 Hydrocodone/Acetaminophen (*Crx) 5-325 Mg Tablet PO 1 tab Q6H PRN Administration Pain Rated 6 or Greater Albuterol 2 puff 06/07/21 03:59 Albuterol Sulfate (*Sp) Aerosol 1 Puff INHALATION Q6H PRN Wheezing Amitriptyline HCl 50 mg 06/07/21 21:00 06/13/21 21:57 Amitriptyline Hcl 25 Mg Tablet PO 50 mg HS BELKYS Administration Aspirin 81 mg 06/07/21 08:00 06/14/21 09:14 Aspirin 81 Mg Chewable Tablet PO 81 mg DAILY@0800 BELKYS Administration Atorvastatin Calcium 40 mg 06/07/21 21:00 06/13/21 21:57 Atorvastatin 40 Mg Tablet PO 40 mg HS BELKYS Administration Calcium Acetate 1,334 mg 06/07/21 08:00 06/14/21 12:52 Calcium Acetate 667 Mg Tablet PO 1,334 mg TIDWM BELKYS Administration Carvedilol 25 mg 06/07/21 09:00 06/14/21 09:15 Carvedilol 25 Mg Tablet PO 25 mg Q12HR BELKYS Administration Clonidine HCl 0.2 mg 06/11/21 17:00 06/14/21 09:15 Clonidine Hcl 0.2 Mg Tablet PO 0.2 mg BID BELKYS Administration
[2021-06-14 14:00] VITALS: BP 148/57; PULSE 79; RESP 14; TEMP 36.1; O2SAT 97
--- NOTE | 2021-06-14 15:03 | PM.DS ---
DS: Admitting Diagnosis Discharge Date 06/14/2021 Admitting Diagnosis chest pain DS: Discharge Diagnosis Discharge Diagnosis (1) End-stage renal disease on hemodialysis: Code(s): N18.6 - End stage renal disease; Z99.2 - Dependence on renal dialysis Status: Acute Assessment and Plan: -nephrology: - Continue Telemetry - Accurate I&O. - Daily weight - Renal -still have fluid overload continue dialysis and daily evaluation of diuresis 06/13/2021 Interval history: 40-year-old male with history of end-stage renal disease on hemodialysis patient states prior to coming to emergency department was having diarrhea and and missed his couple of hemodialysis and presented emergency department with complaint of chest pain secondary to volume overload resulting exacerbation of congestive heart failure patient was started on hemodialysis since then symptoms have improved patient was also found to have elevated tropes mild most likely secondary to demand ischemia due to volume overload patient was seen by product development ecologist would not suspect acute coronary syndrome and there was no systemic workup was recommended, today patient seen in dialysis is feeling much better compared to when he arrived denies any abdominal pain nausea or vomiting, will continue to monitor patient be seen by his bottle tester further recommendation to follow. (2) Volume overload: Qualifiers: Hypervolemia type: unspecified Qualified Code(s): E87.70 - Fluid overload, unspecified Code(s): E87.70 - Fluid overload, unspecified Status: Acute Assessment and Plan: Patient has skipped several treatments of dialysis Continue to monitor. Nephrology following status post dialysis IV albumin (3) Acute exacerbation of congestive heart failure: Qualifiers: Heart failure type: unspecified Qualified Code(s): I50.9 - Heart failure, unspecified Code(s): I50.9 - Heart failure, unspecified Status: Acute Assessment and Plan: Patient with chronic elevation of brain natriuretic peptide associated with pulmonary edema Continue dialysis and daily evaluation for diuresis diuresis (4) Type 1 diabetes: Qualifiers: Diabetes mellitus complication status: with other specified complication Qualified Code(s): E10.69 - Type 1 diabetes mellitus with other specified complication Code(s): E10.9 - Type 1 diabetes mellitus without complications Status: Chronic Assessment and Plan: Continue home meds Continue insulin Accu-Cheks AC and HS -during admission Fasting glucose is >400. SSI dose changed to high dosing and his Lantus 15 units at AM is changed to 22 units HS. Then on 06/11/2021 patient blood sugar dropped to 50s and 30s Lantus dose was decreased to 9 units and on also changed to low sliding scale - Continue hypoglycemic panel. - Continue glucose checks AC and HS. - Renal -diabetic diet was discontinued due to hypoglycemia Monitor closely if blood sugar uncontrolled resume diabetic diet 1st then adjust the dose of insulin if appropriate. (5) Seizure disorder: Onset Date: 10/2019 Code(s): G40.909 - Epilepsy, unspecified, not intractable, without status epilepticus Status: Inactive Assessment and Plan: Seizure-free Continue home meds (6) Elevated troponin: Code(s): R77.8 - Other specified abnormalities of plasma proteins Status: Acute Assessment and Plan: Patient with chronic elevation of troponins. Echo Most likely related to NSTEMI type 2 secondary to demand ischemia monitor patient does not have chest pain (7) Diarrhea: Qualifiers: Diarrhea type: unspecified type Qualified Code(s): R19.7 - Diarrhea, unspecified Code(s): R19.7 - Diarrhea, unspecified Status: Acute Assessment and Plan: - Stool culture, Cryptosporidium, C-diff, and Giardia ordered. - Monitor labs and VS. - Accurate I&O orde
[2021-06-14 15:07] VITALS: O2SAT 95
== END 2021-06-14 16:48 | disposition home or self-care (01) | DRG 640 ==
LOC: ANHED 18:58 → ANHIMU 23:10 → ANH3MEDSUR 06-09 09:51 → ANH2MED 06-17 10:55 → ANH3MEDSUR 06-17 10:55 → ANHIMU 06-17 10:55
PROVIDERS: Emergency Medicine; Family Medicine; Internal Medicine; Internal Medicine Nephrology; Admitting Provider Internal Medicine; Emergency Provider Emergency Medicine; PCP Physician Assistant; Visit Provider Nurse Practitioner Adult Health
DX: E87.79 Other fluid overload (principal); N18.6 End stage renal disease; I21.A1 Myocardial infarction type 2; I31.3 Pericardial effusion (noninflammatory); I13.2 Hypertensive heart and chronic kidney disease with heart failure and with stage 5 chronic kidney disease, or end stage renal disease; I50.9 Heart failure, unspecified; Z91.15 Patient's noncompliance with renal dialysis; Z20.822 Contact with and (suspected) exposure to COVID-19; E10.22 Type 1 diabetes mellitus with diabetic chronic kidney disease; D63.1 Anemia in chronic kidney disease; D50.9 Iron deficiency anemia, unspecified; G40.909 Epilepsy, unspecified, not intractable, without status epilepticus; F41.8 Other specified anxiety disorders; E03.9 Hypothyroidism, unspecified; F41.9 Anxiety disorder, unspecified; F32.A Depression, unspecified; R13.10 Dysphagia, unspecified; E10.42 Type 1 diabetes mellitus with diabetic polyneuropathy; E10.59 Type 1 diabetes mellitus with other circulatory complications; I15.2 Hypertension secondary to endocrine disorders; E10.649 Type 1 diabetes mellitus with hypoglycemia without coma; I27.20 Pulmonary hypertension, unspecified; M54.9 Dorsalgia, unspecified; R19.7 Diarrhea, unspecified; N25.0 Renal osteodystrophy; R07.89 Other chest pain; Z99.2 Dependence on renal dialysis; Z90.49 Acquired absence of other specified parts of digestive tract; Z87.891 Personal history of nicotine dependence; Z79.4 Long term (current) use of insulin; Z95.0 Presence of cardiac pacemaker
CPT/HCPCS: 36415; 71046; 72100; 80053; 80069; 82728; 82948; 83540; 83550; 83690; 83735; 83880; 84100; 84484; 85025; 85027; 85046; 85610; 85730; 87040; 92611; 93005; 93306; 96374; 99285; A9270; C9803; G0257; J1170; J1610; J1644; J1756; J1815; J1940; J2270; J7030; Q5105; U0003; U0005

== ENCOUNTER 2021-07-18 15:19 | Observation (INO) | payer MEDICARE, MEDICAID, SELFPAY ==
[2021-07-18] VITALS (29 sets, daily range): BP systolic 104–155; BP diastolic 54–99; PULSE 70–86; RESP 13–23; TEMP 36.1–36.7; O2SAT 95–100; BMI 25.3
--- NOTE | ~2021-07-18 | CT_ITS ---
EXAMINATION: CT brain wo con DATE: 07/18/2021 20:13 INDICATION: Syncope TECHNIQUE: Computed tomography (CT) of the head was performed without intravenous contrast. The dose- length product was 605.33 mGy-cm. Automated exposure control and iterative reconstruction technique w ere employed. COMPARISON: 02/2019 FINDINGS: There are chronic bilateral lacunar and left parietal lobe infarctions. No ventriculomegaly or midline shift. Basilar cisterns are patent. There is intracranial atherosclerosis. Paranasal sinu ses and mastoids are pneumatized. No depressed skull fractures. There are scattered mild periventricu lar and subcortical white matter changes, most likely related to small vessel ischemic disease (micro angiopathy). Paranasal sinuses and mastoids are pneumatized. No depressed skull fractures. IMPRESSION: 1. No acute intracranial abnormality. 2: Chronic bilateral lacunar and left parietal lobe infarctions. 3: Chronic age-related findings. Reviewed, dictated and finalized at location A.
--- NOTE | ~2021-07-18 | XR_ITS ---
XR chest 1V portable 07/18/2021 21:27 Indication: Shortness of breath. Procedure: AP portable chest Comparison: Comparison to multiple prior studies sequentially, with oldest reviewed study dated 04/16. Findings: Moderate cardiomegaly. There is pulmonary edema. Bilateral pleural effusions. No pneumothor ax. Impression: 1: Cardiomegaly with progression of pulmonary edema. Superimposed pneumonia not excluded. 2: Bilateral pleural effusions. Reviewed, dictated and finalized at location A. Impression: 1: Cardiomegaly with progression of pulmonary edema. Superimposed pneumonia not excluded. 2: Bilateral pleural effusions.
--- NOTE | 2021-07-18 15:27 | ECG_ITS ---
Measurements Intervals [place] Rate: 75 P: 35 UT: 150 QRS: 41 QRSD: 107 T: 62 QT: 410 QTc: 458 Interpretive Statements SINUS RHYTHM DELAYED PRECORDIAL R/S TRANSITION NONSPECIFIC T-WAVE ABNORMALITY- HIGH LATERAL LEADS BASELINE ARTIFACT- I, II, III BORDERLINE ECG Electronically Signed On 07-18-2021 17:19:02 CDT by Lokesh Luna D.O.
--- NOTE | 2021-07-18 15:33 | ED.SYNCOPE ---
HPI - Syncope General Chief Complaint: Syncope Stated Complaint: PRE-SYNCOPE Time Seen by Provider: 07/18/21 15:24 Source: patient and EMS Mode of arrival: EMS Limitations: no limitations History of Present Illness HPI narrative: Patient is 40 years old white male brought to the emergency room from the dialysis center because of syncope, the staff had trouble to wake him up at the end of dialysis. Patient is on chronic oxygen by nasal cannula 2 to 3 L. He denies any fever, chills, nausea, vomiting, chest pain, shortness of breath, back pain, headache or abdominal pain. He denies having syncope like this before. Related Data Home Medications Medication Instructions Recorded Confirmed albuterol sulfate 90 mcg/actuation 2 puff inhalation Q6H PRN Wheezing 11/04/19 06/07/21 aerosol inhaler (Ventolin HFA) hydralazine 50 mg tablet 100 mg PO TID 11/04/19 06/06/21 terazosin 2 mg capsule 2 mg PO BID 11/04/19 06/07/21 amitriptyline 25 mg tablet 50 mg PO HS 06/01/20 06/06/21 calcium acetate 2 tablet PO TIDWMEAL 06/01/20 06/07/21 escitalopram oxalate 20 mg tablet 20 mg PO DAILY ##0 06/01/20 06/06/21 famotidine 20 mg tablet 20 mg PO BID 06/01/20 06/06/21 insulin glargine 100 unit/mL 15 unit subcut QAM 06/01/20 06/07/21 subcutaneous solution (Lantus U-100 Insulin) insulin lispro 100 unit/mL See Rx Instructions .Route .COMPLEX 06/02/20 06/07/21 subcutaneous solution (Humalog U-100 Insulin) phenytoin sodium extended 100 mg 100 mg PO TID 06/02/20 06/06/21 capsule (Dilantin Extended) aspirin 81 mg chewable tablet 81 mg PO DAILY 04/14/21 06/07/21 atorvastatin 40 mg tablet 40 mg PO HS 04/14/21 06/06/21 carvedilol 25 mg tablet 25 mg PO BID 04/14/21 06/06/21 clonidine HCl 0.3 mg tablet 0.3 mg PO BID 04/14/21 06/06/21 levetiracetam 500 mg tablet See Rx Instructions .Route .COMPLEX 04/14/21 06/06/21 levothyroxine 50 mcg tablet 50 mcg PO DAILY 04/14/21 06/06/21 furosemide 80 mg tablet 80 mg PO BID 06/06/21 06/06/21 vitamin B comp no.3-folic acid 1 1 tablet PO DAILY 06/06/21 06/06/21 mg-vit C 60 mg-biotin 300 mcg tablet ([facility]) lidocaine 5 % topical patch 1 patch transdermal DAILY PRN Pain 06/07/21 06/07/21 (Lidoderm) Allergies Allergy/AdvReac Type Severity Reaction Status Date / Time Penicillins Allergy Unknown Unknown Verified 06/06/21 18:12 Sulfa (Sulfonamide Allergy Unknown Unknown Verified 06/06/21 18:12 Antibiotics) chlorpromazine Allergy Rash Verified 06/06/21 18:12 [From Thorazine] iohexol Allergy Anaphylaxis Verified 06/06/21 18:12 [From contrast - CT, X-RAY] valproic acid Allergy Unknown Verified 06/06/21 18:12 divalproex sodium AdvReac Severe Confusion, Verified 06/06/21 23:07 [From Depakote] Seizure, Hallucinations fluorescein AdvReac Severe HIVES, BP Verified 06/06/21 23:07 DROPPED, SWELLING TONGUE Review of Systems Review of Systems: All systems reviewed & are unremarkable except as noted in HPI and below PMFSH Past Medical History Medical History Anemia requiring transfusions Anxiety and depression Asthma End stage renal disease on dialysis Erythropoietin deficiency anemia Hypertension Migraines Renal osteodystrophy Seizure disorder (10/2019) Type 1 diabetes Diagnosed at the age of 14. Hemoglobin A1c was 6.6% on 11/06/2020. Surgical History Surgical History History of appendectomy History of cholecystectomy Previous back surgery Status post creation of arteriovenous fistula Status post insertion of dialysis catheter Status post LASIK surgery of both eyes Family History Family History Mother Diabetes mellitus Cerebrovascular accident Father Hypertension Social History Social History Social History: The patient lives with his .
--- NOTE | 2021-07-18 15:37 | PC.NURSE ---
Pt difficult stick, GISELLE Sotelo at bedside with ultrasound.
--- NOTE | 2021-07-18 15:37 | PC.NURSE ---
Provider at bedside.
[2021-07-18 15:55] LABS: Basophils Percent Auto 0.6 % (0.2-1.2); Eosinophils Percent Auto 15.1 % (0-4.4); Hematocrit 29.5 % (42.0-52.0); Hemoglobin 9.2 g/dL (14.0-18.0); Immature Granulocyte Absolute 0.04 K/mm3 (0.00-0.031); Immature Granulocyte Percent A 0.6 % (0-0.5); Lymphocytes Absolute Auto 0.61 K/mm3 (0.9-3.2); Lymphocytes Percent Auto 9.5 % (18.3-44.2); Mean Corpuscular HGB Conc 31.2 g/dl (32-36); Mean Corpuscular Hemoglobin 30.6 pg (26-34); Mean Platelet Volume 9.6 fl (7.4-10.4); Monocytes Absolute Auto 0.6 K/mm3 (0.1-0.6); Monocytes Percent Auto 9.5 % (2.6-8.5); Neutrophils Absolute Auto 4.2 K/mm3 (1.3-6.7); Neutrophils Percent Auto 64.7 % (45.5-73.1); Platelet Count Result 175 k/mm3 (150-375); Red Blood Count 3.01 M/mm3 (4.6-6.20); Red Cell Distribution Width 16.1 % (11.5-14.5); White Blood Count 6.4 K/mm3 (4.5-10.0)
[2021-07-18 16:04] LABS: Alanine Aminotransferase 30 U/L (6-50); Alkaline Phosphatase 227 U/L (38-126); Anion Gap 9 mmol/L (8-16); Aspartate Amino Transferase 39 U/L (17-59); Bilirubin,Total 0.7 mg/dL (0.2-1.3); Blood Urea Nitrogen 29 mg/dL (9-20); Carbon Dioxide 39 mmol/L (22-30); Chloride 90 mmol/L (98-107); Estimated CRCL calculation 25 ml/min; Estimated Glomerular Filt Rate 17; Glucose 88 mg/dL (65-110); Potassium 3.5 mmol/L (3.4-5.0); Sodium 138 mmol/L (137-145)
[2021-07-18 17:38] LABS: Valproic Acid < 10.0 ug/mL (50-120)
[2021-07-18 19:24] LABS: Phenytoin Dilantin < 3 ug/mL (10-20)
--- NOTE | 2021-07-18 19:50 | PM.IMHP ---
H&P: HPI History of Present Illness Date/Time: Patient was placed observation status for expected length of stay less than 23 hours for management, will plan to re-evaluate tomorrow for improvement. 07/18/21 19:50 Chief Complaint: Syncopal episode Narrative: Mr. Zuniga is a 40-year-old male who presented to the emergency room after questionable syncopal episode at dialysis. Patient states that he is end-stage renal disease and is on hemodialysis every Wednesday, Wednesday, and Wednesday. Patient states that he remembers falling asleep dialysis and then at the end of the treatment the nurses will, but he felt odd. Patient states he did not lose consciousness he just went to sleep. Patient was sent to the emergency room because the nurses felt that he had a syncopal episode and he was difficult to arouse. Patient states he did take a Vicodin prior to dialysis for neck pain and sometimes it does make him somewhat sleepy during or after dialysis. Patient denies any lightheadedness, dizziness, changes in vision, blurred vision, double vision, chest pain, or shortness of breath. Patient states he has been taking all medications at home without any difficulty. Patient states he has not recently missed any hemodialysis treatments. Patient states he has no complaints at this time. Patient states he recently had laser surgery to his left eye after a hemorrhage was noted. Patient has a known history of hypertension, type 1 diabetes mellitus, dyslipidemia, hypothyroidism, seizure disorder, anemia of chronic disease, migraine, and end-stage renal disease with hemodialysis on Wednesday, Wednesday, and Wednesday. Patient states that he is on the kidney transplant list and awaiting a kidney at this time. Review of Systems Review of Systems: A 12 point review of systems was completed patient all pertinent positive and negative per HPI the remainder are unremarkable. FORMERLY [facility] Past Medical History Medical History Anemia requiring transfusions Anxiety and depression Asthma End stage renal disease on dialysis Erythropoietin deficiency anemia Hypertension Migraines Renal osteodystrophy Seizure disorder (10/2019) Type 1 diabetes Diagnosed at the age of 14. Hemoglobin A1c was 6.6% on 11/06/2020. Surgical History Surgical History History of appendectomy History of cholecystectomy Previous back surgery Status post creation of arteriovenous fistula Status post insertion of dialysis catheter Status post LASIK surgery of both eyes Family History Family History Mother Diabetes mellitus Cerebrovascular accident Father Hypertension Social History Social History Social History: The patient lives with his . He is disabled. He has no biological children but his has 1 child that he is raising. Former smoker. He denies any alcohol marijuana or illicit drug use. He designates his , Dorothea Zuniga, as his surrogate decision maker. Code status: Full code. Smoking packs per day: 0.25 Smoking cigarettes per day: 5.0 Years smoked: 4 Smoking pack-years: 1.00 Smoking status: Former smoker Tobacco type: cigarettes Smokeless tobacco user: chewing tobacco Second hand tobacco smoke exposure: No Alcohol intake: former Drinks per week: 10 Substance use: never Substance use type: does not use Spiritual care concerns: No Meds Home Medications and Allergies Home Medications Medication Instructions Recorded Confirmed Type albuterol sulfate 90 mcg/actuation 2 puff inhalation Q6H PRN Wheezing 11/04/19 06/07/21 History aerosol inhaler (Ventolin HFA) hydralazine 50 mg tablet 100 mg PO TID 11/04/19 06/06/21 History amitriptyline 25 mg tablet 50 mg PO HS 06/01/20 07/18/21 History calcium acetate 2 tablet PO TIDWMEAL 06/01/20
[2021-07-18] MEDS: ACETAMINOPHEN 325 MG TABLET 650 MG PO (21:55)
[2021-07-18] MEDS: LIDOCAINE 5% PATCH 1 PATCH TRANSDERM (21:55)
[2021-07-18] MEDS: ATORVASTATIN 40 MG TABLET PO (21:59)
[2021-07-18] MEDS: minoxidiL 2.5 MG TABLET PO (21:59)
[2021-07-18] MEDS: FAMOTIDINE 20 MG TABLET PO (21:59)
[2021-07-18] MEDS: AMITRIPTYLINE HCL 25 MG TABLET 50 MG PO (21:59)
[2021-07-18] MEDS: PHENYTOIN SODIUM 100 MG EXTENDED RELEASE CAP BY MOUTH (21:59)
[2021-07-18] MEDS: cloNIDine HCL 0.1 MG TABLET 0.3 MG PO (22:00)
[2021-07-18] MEDS: carvediloL 25 MG TABLET PO (22:00)
[2021-07-18 22:09] LABS: Glucose Point of Care 133 mg/dl (65-105)
--- NOTE | 2021-07-18 22:45 | ADMGEN ---
This patient, Ari Zuniga, was admitted to [facility] Surg Room 330-02. Patient/family oriented to hospital policies and general routines including ID bracelet, bed and alarms, visiting hours, pain management, procedures, bathroom and other care routines, personal items, smoking policy, room service/diet, and visiting hours. Information on how to activate the Rapid Response Team has been discussed. Patient/Family are encouraged to report perceived risks to care and to ask questions if they do not understand what they are told or what they should do.
[2021-07-18] MEDS: prednisoLONE ACETATE 1% OPHTH 5 ML 1 DROP LEFT EYE (23:04)
[2021-07-18] MEDS: HEPARIN SODIUM 5,000 UNITS/ML VIAL 5000 UNITS SUB-Q (23:04)
[2021-07-18] MEDS: OFLOXACIN 0.3% OPHTH SOLN 5 ML BTL 1 DROP LEFT EYE (23:05)
[2021-07-18] MEDS: HYDROcodone/acetaminophen (*CRX) 5-325 MG TABLET 1 TAB PO (23:31)
[2021-07-19] VITALS (13 sets, daily range): BP systolic 133–189; BP diastolic 83–102; PULSE 77–89; RESP 18; TEMP 35.8–36.6; O2SAT 92–100
[2021-07-19] MEDS: LEVOTHYROXINE SODIUM 50 MCG TABLET PO (05:57)
[2021-07-19 06:02] LABS: Basophils Percent Auto 0.4 % (0.2-1.2); Eosinophils Absolute Auto 0.7 K/mm3 (0-0.3); Eosinophils Percent Auto 13.7 % (0-4.4); Hematocrit 26.1 % (42.0-52.0); Hemoglobin 8.3 g/dL (14.0-18.0); Immature Granulocyte Absolute 0.02 K/mm3 (0.00-0.031); Immature Granulocyte Percent A 0.4 % (0-0.5); Lymphocytes Absolute Auto 0.88 K/mm3 (0.9-3.2); Lymphocytes Percent Auto 16.8 % (18.3-44.2); Mean Corpuscular HGB Conc 31.8 g/dl (32-36); Mean Corpuscular Volume 97.4 fl (80-100); Mean Platelet Volume 9.9 fl (7.4-10.4); Monocytes Absolute Auto 0.6 K/mm3 (0.1-0.6); Monocytes Percent Auto 11.6 % (2.6-8.5); Neutrophils Percent Auto 57.1 % (45.5-73.1); Platelet Count Result 158 k/mm3 (150-375); Red Blood Count 2.68 M/mm3 (4.6-6.20); Red Cell Distribution Width 16.2 % (11.5-14.5); White Blood Count 5.3 K/mm3 (4.5-10.0)
[2021-07-19 06:14] LABS: Albumin Level 3.7 g/dL (3.5-5.1); Anion Gap 6 mmol/L (8-16); Blood Urea Nitrogen 36 mg/dL (9-20); Calcium 8.9 mg/dL (8.4-10.2); Carbon Dioxide 38 mmol/L (22-30); Chloride 91 mmol/L (98-107); Estimated CRCL calculation 20 ml/min; Estimated Glomerular Filt Rate 13; Glucose 297 mg/dL (65-110); Phosphorus 6.3 mg/dL (2.5-4.5); Sodium 135 mmol/L (137-145)
[2021-07-19] MEDS: ESCITALOPRAM OXALATE 10 MG TABLET 20 MG PO (08:00)
[2021-07-19] MEDS: CALCIUM ACETATE 667 MG TABLET 1334 MG PO ×3 (08:01→17:06)
[2021-07-19] MEDS: minoxidiL 2.5 MG TABLET PO ×2 (08:01→21:10)
[2021-07-19] MEDS: cloNIDine HCL 0.1 MG TABLET 0.3 MG PO ×2 (08:01→21:10)
[2021-07-19] MEDS: hydrALAZINE HCL 50 MG TABLET 100 MG PO ×3 (08:01→17:06)
[2021-07-19] MEDS: SEVELAMER CARBONATE 800 MG TABLET 1600 MG PO ×3 (08:02→17:07)
[2021-07-19] MEDS: ASPIRIN 81 MG CHEWABLE TABLET PO (08:02)
[2021-07-19] MEDS: PHENYTOIN SODIUM 100 MG EXTENDED RELEASE CAP BY MOUTH ×2 (08:02→12:31)
[2021-07-19] MEDS: VITAMIN B CMPLX/VIT C/FOLIC AC 1 CAPSULE 1 CAP PO (08:03)
[2021-07-19] MEDS: HEPARIN SODIUM 5,000 UNITS/ML VIAL 5000 UNITS SUB-Q ×2 (08:03→21:12)
[2021-07-19] MEDS: carvediloL 25 MG TABLET PO ×2 (08:03→21:10)
[2021-07-19] MEDS: INSULIN ASPART (*BKC) 100 UNITS/ML SUB-Q (08:03)
[2021-07-19] MEDS: FUROSEMIDE 80 MG TABLET PO ×2 (08:03→17:06)
[2021-07-19] MEDS: INSULIN GLARGINE (*BKC) 100 UNITS/ML 15 UNITS SUB-Q (08:03)
[2021-07-19] MEDS: FAMOTIDINE 20 MG TABLET PO ×2 (08:03→21:10)
[2021-07-19 08:04] LABS: Glucose Point of Care 253 mg/dl (65-105)
[2021-07-19] MEDS: prednisoLONE ACETATE 1% OPHTH 5 ML 1 DROP LEFT EYE ×4 (08:04→21:13)
[2021-07-19] MEDS: OFLOXACIN 0.3% OPHTH SOLN 5 ML BTL 1 DROP LEFT EYE ×4 (08:04→21:13)
--- NOTE | 2021-07-19 09:22 | PM.IMPN ---
Progress Note: A&P Assessment and Plan (1) Syncope: Code(s): R55 - Syncope and collapse Status: Acute Plan Assessment and plan (1) Syncope: ?Code(s): R55 - Syncope and collapse ?Status:?Acute ?Assessment and Plan: possibly secondary to hypotension after dialysis Street .? Patient will have orthostatic blood pressures Q shift.? Neuro checks have been ordered every [address] of the head no new findings (2) Hypertension associated with diabetes: ?Code(s): E11.59 - Type 2 diabetes mellitus with other circulatory complications; I15.2 - Hypertension secondary to endocrine disorders ?Status:?Acute ?Assessment and Plan: continue home medication vital signs as ordered adjust medication as needed (3) End-stage renal disease on hemodialysis: ?Code(s): N18.6 - End stage renal disease; Z99.2 - Dependence on renal dialysis ?Status:?Acute ?Assessment and Plan: Patient does receive hemodialysis on Wednesday, Wednesday, and Wednesday.? Nephrology has been consult and do appreciate further recommendations. (4) Type 1 diabetes: ?Qualifiers: ?Diabetes mellitus complication status:?with other specified complication? Qualified Code(s):?E10.69 - Type 1 diabetes mellitus with other specified complication ?Code(s): E10.9 - Type 1 diabetes mellitus without complications ?Status:?Chronic ?Assessment and Plan: continue home medication continue Accu-Chek with sliding scale and hypoglycemic protocol will adjust medication as needed Subjective Date/time seen: 07/19/21 09:22 Interval history: patient notes that he has not had any more syncopal episodes to the admission. Patient notes that he believes that his blood pressure dropped which has happened in the past after his dialysis caused him to have a syncopal episode. Patient notes that he has also noticed excessive swelling to his bilateral lower extremity. His manager plan is Dr. Carmichael. his manager plan has been consulted. patient diagnostic tests have all been negative. He can possibly discharge home after does consult tomorrow. he also complains chronic back pain. Review of Systems Review of Systems: All systems reviewed & are unremarkable except as noted in HPI and below Exam Narrative: General: Pleasant, no obvious distress noted HEENT: PERRLA, Mucous Membranes Moist and [place], Nares Patent, Sclera Clear Neck: JVD, Supple Pulmonary: Clear to Auscultation, Normal Air Movement Cardiovascular: No Murmurs, Gallops, or Rubs, Regular Rhythm, Regular Rate Abdominal: Abdomen Soft, Non-Distended, Normal Bowel Sounds Extremities: Normal Pulses bilateral 2+ edema to the lower extremity Integumentary: No Abnormalities Neurological: Normal Gait, Normal Speech Psychological: Mental Status NL, Mood NL Objective Data Vital Signs Vital Signs: Vital Signs - 24 hr 07/18/21 15:21 07/18/21 15:27 07/18/21 15:25 Temperature 97.6 F Pulse Rate 77 76 77 Respiratory Rate 14 14 Blood Pressure 125/88 Pulse Oximetry 100 99 Oxygen Delivery Nasal Cannula Oxygen Flow Rate 3 07/18/21 15:26 07/18/21 15:30 07/18/21 15:31 Temperature Pulse Rate 77 75 75 Respiratory Rate 16 16 17 Blood Pressure 125/88 132/92 H Pulse Oximetry 95 99 100 Oxygen Delivery Oxygen Flow Rate 07/18/21 15:45 07/18/21 16:00 07/18/21 16:15 Temperature Pulse Rate 74 74 73 Respiratory Rate 13 13 17 Blood Pressure Pulse Oximetry Oxygen Delivery Oxygen Flow Rate 07/18/21 16:30 07/18/21 16:45 07/18/21 17:00 Temperature Pulse Rate 73 73 73 Respiratory Rate 14 13 15 Blood Pressure Pulse Oximetry Oxygen Delivery Oxygen Flow Rate 07/18/21 17:15 07/18/21 17:30 07/18/21 17:45 Temperature Pulse Rate 73 74 74 Respiratory Rate 13 18 19 Blood Pressure Pulse Oximetry 99 Oxygen Delivery Oxygen Flow Rate 07/18/21 17:53 07/18/21 17:54
[2021-07-19] MEDS: HYDROmorphone HCL INJ (*CRX) 1 MG/ML SYR IV PUSH (10:07)
[2021-07-19 12:29] LABS: Glucose Point of Care 183 mg/dl (65-105)
--- NOTE | 2021-07-19 13:04 | PM.CNNEP ---
Assessment and Plan Assessment and plan (1) End-stage renal disease (ESRD): Onset Date: Unknown Code(s): N18.6 - End stage renal disease Status: Chronic Assessment and Plan: HD yesterday and continue dialysis 3x/week (Wed/Wed/Wednesday) follow electrolytes, volume status, and clearance (2) Syncope: Code(s): R55 - Syncope and collapse Status: Acute Assessment and Plan: from my discussion with outpatient dialysis unit, no syncopal episode occurred rather, he had post-HD relative hypotension associated with transient lethargy since he usually is hypertensive at baseline, suspicion falls on hypotension as cause of symptoms on presetation CT of head negative mentation seems back to baseline (3) Hypertension: Qualifiers: Hypertension type: essential hypertension Qualified Code(s): I10 - Essential (primary) hypertension Code(s): I10 - Essential (primary) hypertension Status: Chronic Assessment and Plan: well controlled at this time concern that initial presentation could have related to overcontrol of his BP follow trend of hemodynamics (4) Anemia: Onset Date: Unknown Qualifiers: Anemia type: due to chronic kidney disease Chronic kidney disease stage: on chronic dialysis Qualified Code(s): N18.6 - End stage renal disease; D63.1 - Anemia in chronic kidney disease; Z99.2 - Dependence on renal dialysis Code(s): D64.9 - Anemia, unspecified Status: Chronic Assessment and Plan: due to ESRD Epogen with HD follow trend H/H (5) Type 1 diabetes: Qualifiers: Chronic kidney disease stage: on chronic dialysis Diabetes mellitus complication detail: with chronic kidney disease Diabetes mellitus complication status: with kidney complications Qualified Code(s): E10.22 - Type 1 diabetes mellitus with diabetic chronic kidney disease; N18.6 - End stage renal disease; Z99.2 - Dependence on renal dialysis Code(s): E10.9 - Type 1 diabetes mellitus without complications Status: Chronic Assessment and Plan: etiology of ESRD brittle control at baseline glycemic control Will continue to follow - would not be opposed to discharge from renal perspective if he is otherwise medically stable History of Present Illness Reason for Consult Consult date: 07/19/21 Reason for consult: end stage renal disease Chief Complaint Chief complaint: syncope, hemodialysis status, chronic back pain, History of Present Illness Narrative: The patient is a 40-year-old male with an extensive past medical history is outlined below who presented to [facility] Emergency room for further evaluation of possible syncope.Next The patient underwent his scheduled dialysis treatment yesterday. As per his usual routine, he had a significant amount of fluid on and they were unable to get him to his dry weight. However, he did tolerate the procedure reasonably well however, post procedure, he seemed to be somewhat sleepy/ lethargic. He describes a sensation as not feeling right. It was also noted that his postprocedure / dialysis blood pressure was in the 100-110 systolic which is quite low for the patient as he normally runs hypertensive anywhere from 150-200 systolic. He was given some IV fluids back at the end of his treatment but he still remained somewhat sleepy/ lethargic and hence EMS was called and he was transferred to [facility] for further evaluation. Workup and evaluation in the emergency room demonstrated the patient to be hemodynamically stable and apparently back to his baseline mentation. Routine blood test demonstrated labs consistent with his known history of end-stage renal disease and a CBC was only remarkable for mild anemia also attributed to his end-stage renal disease. However, given his complex medical history and the constellation of symptoms that led to his presentation, he
[2021-07-19 16:52] LABS: Glucose Point of Care 123 mg/dl (65-105)
[2021-07-19] MEDS: ATORVASTATIN 40 MG TABLET PO (21:10)
[2021-07-19] MEDS: AMITRIPTYLINE HCL 25 MG TABLET 50 MG PO (21:11)
[2021-07-19 21:30] LABS: Glucose Point of Care 138 mg/dl (65-105)
[2021-07-19] MEDS: HYDROcodone/acetaminophen (*CRX) 5-325 MG TABLET 1 TAB PO (21:52)
[2021-07-20] VITALS (8 sets, daily range): BP systolic 139–164; BP diastolic 54–89; PULSE 70–89; RESP 18; TEMP 36.5–36.6; O2SAT 95–99
[2021-07-20] MEDS: HYDROcodone/acetaminophen (*CRX) 5-325 MG TABLET 1 TAB PO (03:44)
[2021-07-20] MEDS: LEVOTHYROXINE SODIUM 50 MCG TABLET PO (05:48)
[2021-07-20 06:32] LABS: Hematocrit 29.4 % (42.0-52.0); Mean Corpuscular HGB Conc 30.6 g/dl (32-36); Mean Corpuscular Hemoglobin 30.8 pg (26-34); Mean Corpuscular Volume 100.7 fl (80-100); Mean Platelet Volume 10.1 fl (7.4-10.4); Platelet Count Result 175 k/mm3 (150-375); Red Blood Count 2.92 M/mm3 (4.6-6.20); Red Cell Distribution Width 16.3 % (11.5-14.5); White Blood Count 6.5 K/mm3 (4.5-10.0)
[2021-07-20 06:39] LABS: Alanine Aminotransferase 23 U/L (6-50); Albumin Level 3.7 g/dL (3.5-5.1); Alkaline Phosphatase 188 U/L (38-126); Anion Gap 10 mmol/L (8-16); Aspartate Amino Transferase 31 U/L (17-59); Bilirubin,Total 0.6 mg/dL (0.2-1.3); Blood Urea Nitrogen 51 mg/dL (9-20); Calcium 9.2 mg/dL (8.4-10.2); Carbon Dioxide 34 mmol/L (22-30); Chloride 91 mmol/L (98-107); Estimated CRCL calculation 17 ml/min; Estimated Glomerular Filt Rate 11; Glucose 288 mg/dL (65-110); Potassium 4.5 mmol/L (3.4-5.0); Sodium 135 mmol/L (137-145)
[2021-07-20 08:11] LABS: Glucose Point of Care 292 mg/dl (65-105)
[2021-07-20] MEDS: hydrALAZINE HCL 50 MG TABLET 100 MG PO ×2 (08:19→11:54)
[2021-07-20] MEDS: VITAMIN B CMPLX/VIT C/FOLIC AC 1 CAPSULE 1 CAP PO (08:19)
[2021-07-20] MEDS: CALCIUM ACETATE 667 MG TABLET 1334 MG PO ×2 (08:19→11:54)
[2021-07-20] MEDS: PHENYTOIN SODIUM 100 MG EXTENDED RELEASE CAP BY MOUTH ×2 (08:20→11:59)
[2021-07-20] MEDS: FUROSEMIDE 80 MG TABLET PO (08:20)
[2021-07-20] MEDS: minoxidiL 2.5 MG TABLET PO (08:20)
[2021-07-20] MEDS: carvediloL 25 MG TABLET PO (08:20)
[2021-07-20] MEDS: ASPIRIN 81 MG CHEWABLE TABLET PO (08:20)
[2021-07-20] MEDS: ESCITALOPRAM OXALATE 10 MG TABLET 20 MG PO (08:20)
[2021-07-20] MEDS: SEVELAMER CARBONATE 800 MG TABLET 1600 MG PO ×2 (08:20→11:53)
[2021-07-20] MEDS: INSULIN ASPART (*BKC) 100 UNITS/ML SUB-Q ×2 (08:21→11:58)
[2021-07-20] MEDS: INSULIN GLARGINE (*BKC) 100 UNITS/ML 15 UNITS SUB-Q (08:21)
[2021-07-20] MEDS: cloNIDine HCL 0.1 MG TABLET 0.3 MG PO (08:21)
[2021-07-20] MEDS: prednisoLONE ACETATE 1% OPHTH 5 ML 1 DROP LEFT EYE ×2 (08:21→11:59)
[2021-07-20] MEDS: HEPARIN SODIUM 5,000 UNITS/ML VIAL 5000 UNITS SUB-Q (08:21)
[2021-07-20] MEDS: OFLOXACIN 0.3% OPHTH SOLN 5 ML BTL 1 DROP LEFT EYE ×2 (08:22→11:59)
[2021-07-20] MEDS: FAMOTIDINE 20 MG TABLET PO (08:27)
--- NOTE | 2021-07-20 11:33 | PM.DS ---
DS: Admitting Diagnosis Discharge Date 07/20/21 Admitting Diagnosis Syncope DS: Discharge Diagnosis Discharge Diagnosis (1) Syncope: Code(s): R55 - Syncope and collapse Status: Acute Assessment and Plan: Patient denies syncope and reports he fell asleep during hemodialysis. Orthostatic negative. CT head negative. 06/09/21 echo shows no aortic stenosis, moderate pulmonary hypertension and EF 70%. Could have autonomic dysfunction due to chronic uncontrolled diabetes but patient. CT head negative for acute process. Per Nephrology, patient had post-hemodialysis hypotension and was a little lethargic. Neurologically intact and at his baseline. Patient is clinically stable. -Discharge to home with follow up with PCP (2) Anemia: Code(s): D64.9 - Anemia, unspecified Status: Chronic Assessment and Plan: Stable and chronic likely due to AOCD & ESRD. (3) End-stage renal disease on hemodialysis: Code(s): N18.6 - End stage renal disease; Z99.2 - Dependence on renal dialysis Status: Acute Assessment and Plan: / to diabetes. HD on MWF. Appreciate recommendations from Nephrology. (4) Anxiety and depression: Code(s): F41.9 - Anxiety disorder, unspecified; F32.A - Depression, unspecified Status: Chronic Assessment and Plan: Continue home medications. (5) Pulmonary hypertension: Code(s): I27.20 - Pulmonary hypertension, unspecified Status: Acute Assessment and Plan: Moderate on May echo. Wears oxygen chronically. (6) CVA (cerebral vascular accident): Code(s): I63.9 - Cerebral infarction, unspecified Status: Acute Assessment and Plan: On bb, statin, ASA. Continue. (7) Type 1 diabetes: Qualifiers: Diabetes mellitus complication status: with other specified complication Qualified Code(s): E10.69 - Type 1 diabetes mellitus with other specified complication Code(s): E10.9 - Type 1 diabetes mellitus without complications Status: Chronic Assessment and Plan: Continue insulin. (8) Hypertension: Code(s): I10 - Essential (primary) hypertension Status: Chronic Assessment and Plan: Continue home medications. DS: Summary Hospital Course Reason for hospitalization: Syncope Hospital Course: 40M with a past medical history of ESRD MWF on HD, hyperlipidemia, hypertension , type 1 diabetes, hypothyroidism, seizure disorder, anemia, migraine who presented to the ED from hemodialysis with concern for syncope. Per Nephrology, patient had an episode of post hemodialysis hypotension and was a little lethargic. CT head negative and echo from 06/09/21 w/ no , moderate pulmonary hypertension and EF 70%. Orthostatic vitals were negative. Patient was at baseline. Patient discharged to home. Time Spent with Patient Time attestation: Total time spent providing and/or coordinating discharge services: Exam Narrative: GENERAL: NAD, cooperative HEENT: Normocephalic, atraumatic, anicteric, nares clear, oropharynx moist and clear, poor dentition NECK: Supple CV: Normal S1, S2, RRR, No MRG RESP: CTAB, Normal work of breathing. EXTREMITIES: Warm and well perfused, no clubbing, cyanosis, or edema SKIN: warm, dry and intact. Multiple tattoos. NEURO: CN 2-12 grossly intact. DS: Data Data Completed and Pending Labs on day of discharge: Labs from last 24 hours 07/20/21 07/20/21 07/20/21 08:00 05:35 05:35 WBC 6.5 RBC 2.92 L Hgb 9.0 L Hct 29.4 L MCV 100.7 H MCH 30.8 MCHC 30.6 L RDW 16.3 H Plt Count 175 MPV 10.1 Sodium 135 L Potassium 4.5 Chloride 91 L Carbon Dioxide 34 H Anion Gap 10 BUN 51 H D Creatinine 6.00 H Estim Creat Clear Calc 17 Estimated GFR 11 L Glucose 288 H POC Capillary Glucose 292 H Calcium 9.2 Total Bilirubin 0.6 AST 31 ALT 23 Alkaline Phosphatase 1
[2021-07-20 12:06] LABS: Glucose Point of Care 289 mg/dl (65-105)
== END 2021-07-20 15:05 | disposition home or self-care (01) ==
LOC: ANHED 18:13 → ANH3MEDSUR 18:48
PROVIDERS: Nurse Practitioner; Nurse Practitioner Adult Health; Admitting Provider Family Medicine; Emergency Provider Emergency Medicine; PCP Physician Assistant; Visit Provider Family Medicine
DX: I63.9 Cerebral infarction, unspecified (principal); R55 Syncope and collapse; M54.9 Dorsalgia, unspecified; G89.29 Other chronic pain; I27.20 Pulmonary hypertension, unspecified; I12.0 Hypertensive chronic kidney disease with stage 5 chronic kidney disease or end stage renal disease; E10.22 Type 1 diabetes mellitus with diabetic chronic kidney disease; N18.6 End stage renal disease; Z99.2 Dependence on renal dialysis; G40.909 Epilepsy, unspecified, not intractable, without status epilepticus; N25.0 Renal osteodystrophy; J45.909 Unspecified asthma, uncomplicated; F41.8 Other specified anxiety disorders; D64.9 Anemia, unspecified; Z79.51 Long term (current) use of inhaled steroids; Z79.4 Long term (current) use of insulin; Z79.82 Long term (current) use of aspirin; Z87.891 Personal history of nicotine dependence
CPT/HCPCS: 36415; 70450; 71045; 80053; 80069; 80164; 80185; 82948; 83735; 85025; 85027; 87040; 93005; 96372; 96374; 99285; A9270; G0378; J1170; J1644; J1815

== ENCOUNTER 2021-07-23 04:45 | Emergency (ER) | payer MEDICARE, MEDICAID, SELFPAY ==
--- NOTE | ~2021-07-23 | XR_ITS ---
XR chest 2V 07/23/2021 06:01 Indication: Shortness of breath Procedure: PA and lateral views of the chest Comparison: Comparison to multiple prior studies sequentially, with oldest reviewed study dated 09/2021. Findings: Cardiomegaly with improving pulmonary edema. There is a nodular density left upper thorax. Recommend follow-up CT chest to exclude parenchymal nodule in the patient's condition permits. Small pleural effusions. Impression: 1: Cardiomegaly with improving pulmonary edema. 2: Small pleural effusions. 3.: Nodular density left upper thorax. Follow-up CT chest recommended. Reviewed, dictated and finalized at location A. Impression: 1: Cardiomegaly with improving pulmonary edema. 2: Small pleural effusions. 3.: Nodular density left upper thorax. Follow-up CT chest recommended.
--- NOTE | ~2021-07-23 | US_ITS ---
EXAMINATION: US venous doppler UE LT DATE: 07/23/2021 08:13 INDICATION: Left upper extremity swelling TECHNIQUE: Garcia scale images with and without compression and Doppler images of the left upper extrem ity veins were obtained. COMPARISON: None. FINDINGS: The left internal jugular vein, subclavian vein, axillary vein, brachial veins, basilic vein, cephali c vein, radial vein, and ulnar vein are patent. IMPRESSION: 1. Patent left upper extremity veins. No evidence of deep venous thrombosis. Reviewed, dictated and finalized at location A.
--- NOTE | ~2021-07-23 | XR_ITS ---
XR elbow LT min 3V 07/23/2021 06:01 INDICATION: Left elbow swelling after trauma PROCEDURE: 4 views left elbow COMPARISON: No prior studies for comparison. FINDINGS: Fracture, dislocation or subluxation is not identified. There are extensive vascular calcif ications. There is moderate soft tissue swelling dorsal to the elbow, likely posttraumatic. No forei gn bodies are identified. IMPRESSION: 1: Moderate soft tissue swelling dorsal to the elbow. 2: No acute fracture.. Reviewed, dictated and finalized at location A.
--- NOTE | 2021-07-23 04:54 | ECG_ITS ---
Measurements Intervals [place] Rate: 90 P: 50 AK: 132 QRS: 45 QRSD: 105 T: 91 QT: 388 QTc: 476 Interpretive Statements SINUS RHYTHM POSSIBLE LEFT ATRIAL ENLARGEMENT [-0.1mV P WAVE IN V1/V2] LOW QRS VOLTAGE IN EXTREMITY LEADS [QRS DEFLECTION < 0.5 mV IN LIMB LEADS] NONSPECIFIC T-WAVE ABNORMALITY LATERAL LEADS BORDERLINE ECG COMPARED TO ECG 07/18/2021 15:29:54 NO SIGNIFICANT CHANGES Electronically Signed On 07-23-2021 11:32:51 CDT by Jack Estrada M.D.
[2021-07-23 04:59] VITALS: BP 168/70; PULSE 90; RESP 20; TEMP 36.5; O2SAT 96
[2021-07-23 05:17] LABS: Alveolar/Arterial O2 Gradient 99.7 mmHg; Base Excess ABG 5.6 mEq/l (+/-2.0); Carboxyhemoglobin 1.6 % THb (0-2.0); Fractional Inspired Oxygen 32 %; HCO3 ABG 30.6 mEq/l (22.0-26.0); Methemoglobin ABG 0.1 %THb (0-1.5); Oxygen Content ABG 17.5 %vol (16.0-22.0); Oxygen Saturation ABG 95.3 % (95.0-100.0); Oxyhemoglobin 92.2 % THb (90.0-100.0); PCO2 ABG 46.1 mmHg (35.0-45.0); PO2 ABG 74.5 mmHg (80.0-100.0); PO2 FiO2 Ratio Arterial Blood 2.33 %; Reduced Hemoglobin 6.1 %THb (0-5.0); Total Hemoglobin 13.5 g/dL (12.0-18.0)
[2021-07-23 05:18] LABS: Device NASAL CANNULA; Modified Allen's Test Pass; Site Drawn LEFT RADIAL
[2021-07-23 05:47] LABS: Basophils Percent Auto 0.5 % (0.2-1.2); Eosinophils Absolute Auto 0.9 K/mm3 (0-0.3); Hematocrit 27.1 % (42.0-52.0); Hemoglobin 8.4 g/dL (14.0-18.0); Immature Granulocyte Absolute 0.04 K/mm3 (0.00-0.031); Immature Granulocyte Percent A 0.5 % (0-0.5); Lymphocytes Percent Auto 10.1 % (18.3-44.2); Mean Corpuscular Hemoglobin 30.5 pg (26-34); Mean Corpuscular Volume 98.5 fl (80-100); Mean Platelet Volume 9.4 fl (7.4-10.4); Monocytes Absolute Auto 1.1 K/mm3 (0.1-0.6); Monocytes Percent Auto 13.9 % (2.6-8.5); Neutrophils Absolute Auto 5.1 K/mm3 (1.3-6.7); Platelet Count Result 172 k/mm3 (150-375); Red Blood Count 2.75 M/mm3 (4.6-6.20); Red Cell Distribution Width 16.6 % (11.5-14.5); White Blood Count 7.9 K/mm3 (4.5-10.0)
[2021-07-23 06:00] LABS: Alanine Aminotransferase 20 U/L (6-50); Albumin Level 3.8 g/dL (3.5-5.1); Alkaline Phosphatase 171 U/L (38-126); Anion Gap 13 mmol/L (8-16); Aspartate Amino Transferase 29 U/L (17-59); Bilirubin,Total 0.5 mg/dL (0.2-1.3); Blood Urea Nitrogen 57 mg/dL (9-20); Calcium 9.2 mg/dL (8.4-10.2); Carbon Dioxide 32 mmol/L (22-30); Chloride 91 mmol/L (98-107); Estimated CRCL calculation 13 ml/min; Estimated Glomerular Filt Rate 8; Glucose 179 mg/dL (65-110); Potassium 4.5 mmol/L (3.4-5.0); Sodium 136 mmol/L (137-145)
--- NOTE | 2021-07-23 06:02 | ED.GENADULT ---
HPI - General Adult General Chief complaint: Shortness of Breath/Dyspnea <Pascual Arevalo MD - Last Filed: 07/23/21 06:12> Stated complaint: o2 off for 3 min, needs dialysis today <Pascual Arevalo MD - Last Filed: 07/23/21 06:12> Time Seen by Provider: 07/23/21 04:51 <Pascual Arevalo MD - Last Filed: 07/23/21 06:12> History of Present Illness HPI narrative: Patient is a 40-year-old male who presents ER with shortness of breath. Patient was at home and his oxygen came off. He typically wears 3 L of oxygen. EMS arrived and he was placed back on. Right now he is wearing his home oxygen and his shortness of breath is improving. He gets dialysis Wednesday and has not missed his dialysis. No chest pain or chest pressure. No new cough. He has edema to his lower extremities and left arm that he reports is worse than usual but still a chronic issue for him. He also reports 4 to 5 days ago he had a slip and fall in his bathtub and his left elbow hurts. He is able to perform extension and flexion but has some mild tenderness. Did not strike his head or lose consciousness. Patient also has subconjunctival hemorrhage related to a recent eye surgery. He is unsure what his surgery was for but reports he had a blood clot behind his eye related to his diabetes that had to be addressed. No new eye pain or vision changes. <Pascual Arevalo MD - Last Filed: 07/23/21 06:12> Related Data Home medications: Home Medications Medication Instructions Recorded Confirmed albuterol sulfate 90 mcg/actuation 2 puff inhalation Q6H PRN Wheezing 11/04/19 07/18/21 aerosol inhaler (Ventolin HFA) hydralazine 50 mg tablet 100 mg PO TID 11/04/19 07/18/21 amitriptyline 25 mg tablet 50 mg PO HS 06/01/20 07/18/21 calcium acetate 2 tablet PO TIDWMEAL 06/01/20 07/18/21 escitalopram oxalate 20 mg tablet 20 mg PO DAILY ##0 06/01/20 07/18/21 famotidine 20 mg tablet 20 mg PO BID 06/01/20 07/18/21 insulin glargine 100 unit/mL 15 unit subcut QAM 06/01/20 07/18/21 subcutaneous solution (Lantus U-100 Insulin) insulin lispro 100 unit/mL See Rx Instructions .Route .COMPLEX 06/02/20 07/18/21 subcutaneous solution (Humalog U-100 Insulin) phenytoin sodium extended 100 mg See Rx Instructions .Route .COMPLEX 06/02/20 07/18/21 capsule (Dilantin Extended) aspirin 81 mg chewable tablet 81 mg PO DAILY 04/14/21 07/18/21 atorvastatin 40 mg tablet 40 mg PO HS 04/14/21 07/18/21 carvedilol 25 mg tablet 25 mg PO BID 04/14/21 07/18/21 clonidine HCl 0.3 mg tablet 0.3 mg PO BID 04/14/21 07/18/21 levetiracetam 500 mg tablet See Rx Instructions .Route .COMPLEX 04/14/21 07/18/21 levothyroxine 50 mcg tablet 50 mcg PO DAILY 04/14/21 07/18/21 furosemide 80 mg tablet 80 mg PO BID 06/06/21 07/18/21 vitamin B comp no.3-folic acid 1 1 tablet PO DAILY 06/06/21 07/18/21 mg-vit C 60 mg-biotin 300 mcg tablet ([facility] Rx) lidocaine 5 % topical patch 1 patch transdermal DAILY PRN Pain 06/07/21 07/18/21 (Lidoderm) ofloxacin 0.3 % LEFT EYE QID 07/18/21 07/18/21 prednisolone acetate (PF) 1 % eye 1 drp LEFT EYE QID 07/18/21 07/18/21 drops,suspension sevelamer carbonate 800 mg tablet 1,600 mg PO TIDWM 07/18/21 07/18/21 (Renvela) <Pascual Arevalo MD - Last Filed: 07/23/21 06:12> Allergies/adverse reactions: Allergies Allergy/AdvReac Type Severity Reaction Status Date / Time Penicillins Allergy Unknown Unknown Verified 07/18/21 19:44 Sulfa (Sulfonamide Allergy Unknown Unknown Verified 07/18/21 19:44 Antibiotics) chlorpromazine Allergy Rash Verified 07/18/21 19:45 [From Thorazine] iohexol Allergy Anaphylaxis Verified 07/18/21 19:45 [From contrast - CT, X-RAY] valproic acid Allergy Hallucinati Verified 07/18/21 19:44 ng divalproex sodium AdvReac Severe Confusion, Verified 07/18/21 19:45 [From Depakote] Seizure, Hallucinations fluorescein AdvReac Severe HIVES, BP Verified 07/18/21 19:45 D
[2021-07-23 06:09] LABS: NT Pro B Type Natriuretic Pept > 35000 pg/mL (5-100)
[2021-07-23] MEDS: oxyCODONE/ACETAMINOPHEN (*CRX) 5-325 MG TABLET 1 TABLET PO (06:28)
[2021-07-23 07:05] VITALS: O2SAT 94
[2021-07-23 07:06] VITALS: BP 149/64; PULSE 89; RESP 16; O2SAT 94
[2021-07-23 07:10] VITALS: O2SAT 94
--- NOTE | 2021-07-23 09:08 | PC.NURSE ---
At approximately 0845 I spoke to pt. and his mother because they had requested a subwarehouse supervisor over the ED per primary RN. Mother wants pt. admitted to get dialysis because he goes out of his head every time he gets it . I informed her pt. needed a medical reason to be admitted and but I would check with Dr. Shepard. Pt. wanted to look at the rash on his legs; posterior ankles with multiple small abrasions. Primary RN informed of rash complaint and asked to document. Per Dr. Shepard, he had just spoke with both of them and made aware there was no medical justification to admit pt. and how that is necessary for admission. I repeated this to the mother and pt. again.
--- NOTE | 2021-07-23 09:23 | PC.NURSE ---
Patient's family at bedside states that they have no way to get him his oxygen tank to get to dialysis. Patient's family states I cant go home and get it and my sister has no alexander to my house, and we did not bring his tank so we need this figured out. Patient's family also requesting more pain medications to take home with them. Care coordination called at this time to assist with patient. Patient's family also angry that we are not sending them home with more scripts for pain medications.
[2021-07-23 09:29] VITALS: BP 157/76; PULSE 84; RESP 19; O2SAT 97
--- NOTE | 2021-07-23 10:11 | PCCCNOTE ---
Called by ED to get O2 for transport to dialysis. Pt unable to get home supply at present and has treatment appt at 10 AM. Resp called and unable to determine his O2 provider. Pt given one from ED supply and pt's sister Ronel Zuniga [phone] is to return O2 by this evening and will provide information on current O2 supplier.
--- NOTE | 2021-07-23 10:12 | PC.NURSE ---
patient sent home with O2 from the hospital per Care Coordination, patient also informed to bring tank back and to call care coordination with company that provided in home oxygen for the patient.
--- NOTE | 2021-07-24 10:53 | PCCCNOTE ---
VM received at 210 from Oscar Zuniga, states he is returning the Oxygen tank and if any questions to call [phone]. Phone to Oscar to confirm, he states that the time he left me the message that he was returning the tank to the triage desk and a nurse took the tank, he does not know who he returned it to. Asked if he had the name of the home oxygen supplier and he states that he does not and advised to call patient directly. Called to patient directly he states that he has [employer] and it wasn't through local supplier he contacted [employer] directly and they sent it to him. civil preparedness coordinator confirms that [employer] does have its own direct supplier.
== END 2021-07-23 10:15 | disposition home or self-care (01) ==
PROVIDERS: Emergency Medicine; Emergency Provider Emergency Medicine; PCP Physician Assistant
DX: R06.00 Dyspnea, unspecified (principal); N18.6 End stage renal disease; S50.01XA Contusion of right elbow, initial encounter; E10.22 Type 1 diabetes mellitus with diabetic chronic kidney disease; I12.0 Hypertensive chronic kidney disease with stage 5 chronic kidney disease or end stage renal disease; D63.1 Anemia in chronic kidney disease; N25.0 Renal osteodystrophy; G40.909 Epilepsy, unspecified, not intractable, without status epilepticus; J45.909 Unspecified asthma, uncomplicated; F41.9 Anxiety disorder, unspecified; F32.A Depression, unspecified; Z87.891 Personal history of nicotine dependence; Z99.2 Dependence on renal dialysis; Z99.81 Dependence on supplemental oxygen; Z79.4 Long term (current) use of insulin; Z79.82 Long term (current) use of aspirin; R94.31 Abnormal electrocardiogram [ECG] [EKG]; W18.2XXA Fall in (into) shower or empty bathtub, initial encounter
CPT/HCPCS: 36415; 36600; 71046; 73080; 80053; 82375; 82805; 83050; 83880; 85025; 93005; 93971; 99284; A9270

== ENCOUNTER 2021-08-20 03:54 | Inpatient (IN) | payer MEDICARE, MEDICAID, SELFPAY ==
[2021-08-20] VITALS (45 sets, daily range): BP systolic 94–162; BP diastolic 19–108; PULSE 60–108; RESP 12–29; TEMP 34.9–38.9; O2SAT 92–100
--- NOTE | ~2021-08-20 | XR_ITS ---
XR chest 1V portable 08/20/2021 04:15 Indication: Shortness of breath and fever Procedure: AP portable chest Comparison: Comparison to multiple prior studies sequentially, with oldest reviewed study dated 05/18. Findings: Cardiomegaly. Diffuse bilateral airspace disease. Bilateral pleural effusions, left greater than right. No pneumothorax. No acute osseous abnormality. Impression: 1: Diffuse bilateral airspace disease may represent edema or pneumonia. 2: Bilateral pleural effusions, left greater than right. 3: Cardiomegaly. Reviewed, dictated and finalized at location A. Impression: 1: Diffuse bilateral airspace disease may represent edema or pneumonia. 2: Bilateral pleural effusions, left greater than right. 3: Cardiomegaly.
--- NOTE | ~2021-08-20 | CT_ITS ---
EXAMINATION: CT chest abdomen pelvis wo con DATE: 08/22/2021 14:09 INDICATION: Fever and bacteremia TECHNIQUE: Transaxial computed tomographic images of the chest, abdomen, and pelvis were obtained wit hout intravenous contrast. The dose-length product (DLP) was 673.09 mGy-cm. Automated exposure contro l and iterative reconstruction technique were employed. COMPARISON: 12/01/2015 FINDINGS: CHEST CT: There are moderate to large pleural effusions with passive atelectasis of the lungs. There are widesp read interstitial opacities throughout the lungs. There is no pneumothorax. Cardiomegaly is noted. Th ere is a eirhv-go-ficumkhr size pericardial effusion. There are no pathologically enlarged thoracic l ymph nodes. ABDOMEN/PELVIS CT: The liver, spleen, pancreas, and adrenal glands are normal. The gallbladder is surgically absent. The re is mild atrophy of the kidneys. There is widespread calcified atherosclerosis. There is diffuse an asarca. A small to moderate volume of ascites is present. No pathologically enlarged abdominal or pel johnie lymph nodes are identified. There is severe lumbar spondylosis at L5-S1. There are changes of lef t hip arthroplasty. There is L5-S1 fusion on the right. IMPRESSION: 1. Moderate to large pleural effusions with passive atelectasis. 2. Diffuse interstitial opacities of the lungs, consistent with pulmonary edema. 3. Cardiomegaly with vjibj-ux-qwgjgcny size pericardial effusion. 4. Small to moderate volume of ascites. Reviewed, dictated and finalized at location F. IMPRESSION: 1. Moderate to large pleural effusions with passive atelectasis. 2. Diffuse interstitial opacities of the lungs, consistent with pulmonary edema . 3. Cardiomegaly with [id number] size pericardial effusion. 4. Small to moderate volume of ascites.
--- NOTE | 2021-08-20 04:02 | ECG_ITS ---
Measurements Intervals [place] Rate: 104 P: 61 FL: 126 QRS: 70 QRSD: 104 T: 82 QT: 353 QTc: 465 Interpretive Statements SINUS TACHYCARDIA LEFT ATRIAL ENLARGEMENT [-0.15mV P-WAVE IN V1/V2] LOW QRS VOLTAGE IN EXTREMITY LEADS NONSPECIFIC ST & T-WAVE ABNORMALITY COMPARED TO ECG 07/23/2021 05:26:33 SINUS TACHYCARDIA NOW PRESENT Electronically Signed On 08-20-2021 12:42:42 CDT by Ellie Hagan M.D.
[2021-08-20 06:10] LABS: Hematocrit 26.2 % (42.0-52.0); Hemoglobin 8.3 g/dL (14.0-18.0); Mean Corpuscular HGB Conc 31.7 g/dl (32-36); Mean Corpuscular Volume 94.6 fl (80-100); Mean Platelet Volume 9.6 fl (7.4-10.4); Platelet Count Result 213 k/mm3 (150-375); Red Blood Count 2.77 M/mm3 (4.6-6.20); Red Cell Distribution Width 15.1 % (11.5-14.5); White Blood Count 11.5 K/mm3 (4.5-10.0)
[2021-08-20 06:22] LABS: Alanine Aminotransferase 17 U/L (6-50); Albumin Level 3.7 g/dL (3.5-5.1); Alkaline Phosphatase 188 U/L (38-126); Anion Gap 9 mmol/L (8-16); Aspartate Amino Transferase 27 U/L (17-59); Bilirubin,Total 0.4 mg/dL (0.2-1.3); Blood Urea Nitrogen 50 mg/dL (9-20); Calcium 8.3 mg/dL (8.4-10.2); Carbon Dioxide 31 mmol/L (22-30); Chloride 93 mmol/L (98-107); Estimated CRCL calculation 17 ml/min; Estimated Glomerular Filt Rate 11; Glucose 329 mg/dL (65-110); Potassium 3.7 mmol/L (3.4-5.0); Sodium 133 mmol/L (137-145)
[2021-08-20] MEDS: HYDROmorphone HCL INJ (*CRX) 1 MG/ML SYR IV PUSH (06:25)
[2021-08-20 06:34] LABS: Band Neutrophils Percent 14 % (0-6); Eosinophils Absolute Manual 0.11 K/mm3 (0.02-0.5); Eosinophils Percent Manual 1 % (0-4); Lymphocytes Absolute Manual 0.23 K/mm3 (1.1-4.5); Metamyelocytes Percent 3 %; Monocytes Absolute Manual 0.34 K/mm3 (0.1-0.90); Monocytes Percent Manual 3 % (3-9); Neutrophils Absolute Manual 10.46 K/mm3 (1.3-6.7); Neutrophils Percent Manual 77 % (46-73); Total Cells Counted 100
[2021-08-20 06:36] LABS: Anisocytosis 2+ (NORMAL); Hypochromasia 2+ (NORMAL); Large Platelets Present; Microcytosis 1+ (NORMAL); Platelet Estimate Adequate (Adequate)
--- NOTE | 2021-08-20 06:36 | ED.GENADULT ---
HPI - General Adult General Chief complaint: Shortness of Breath/Dyspnea Stated complaint: increasing SOB Time Seen by Provider: 08/20/21 04:01 History of Present Illness HPI narrative: 40-year-old male history of chronic kidney disease on dialysis presenting to the emergency department for evaluation of worsening generalized fatigue and fever. Patient states over the last few days he has had increasing fatigue, increased shortness of breath and low-grade fever. Patient called EMS and was found to have increased oxygen requirement. Patient is normally on 3 L but was requiring 6 L of oxygen by nasal cannula. Patient does get dialysis on Wednesday and Wednesday. Patient did get his dialysis on Wednesday and is due dialysis today. Patient denies any abdominal pain. Patient did have a fall a few days ago and was evaluated at an outside hospital. Patient does complain of tailbone pain. Patient does have some bruising on his left lower abdomen but denies any significant abdominal pain. Patient states he does not produce much urine. Patient does have chronic wounds on both feet, none of which appear to be the active source of infection. Patient states he has previously had COVID, approximately 2 years ago. Patient is vaccinated against COVID. Patient follows up with Dr. Carmichael Related Data Home Medications Medication Instructions Recorded Confirmed albuterol sulfate 90 mcg/actuation 2 puff inhalation Q6H PRN Wheezing 11/04/19 07/18/21 aerosol inhaler (Ventolin HFA) hydralazine 50 mg tablet 100 mg PO TID 11/04/19 07/18/21 amitriptyline 25 mg tablet 50 mg PO HS 06/01/20 07/18/21 calcium acetate 2 tablet PO TIDWMEAL 06/01/20 07/18/21 escitalopram oxalate 20 mg tablet 20 mg PO DAILY ##0 06/01/20 07/18/21 famotidine 20 mg tablet 20 mg PO BID 06/01/20 07/18/21 insulin glargine 100 unit/mL 15 unit subcut QAM 06/01/20 07/18/21 subcutaneous solution (Lantus U-100 Insulin) insulin lispro 100 unit/mL See Rx Instructions .Route .COMPLEX 06/02/20 07/18/21 subcutaneous solution (Humalog U-100 Insulin) phenytoin sodium extended 100 mg See Rx Instructions .Route .COMPLEX 06/02/20 07/18/21 capsule (Dilantin Extended) aspirin 81 mg chewable tablet 81 mg PO DAILY 04/14/21 07/18/21 atorvastatin 40 mg tablet 40 mg PO HS 04/14/21 07/18/21 carvedilol 25 mg tablet 25 mg PO BID 04/14/21 07/18/21 clonidine HCl 0.3 mg tablet 0.3 mg PO BID 04/14/21 07/18/21 levetiracetam 500 mg tablet See Rx Instructions .Route .COMPLEX 04/14/21 07/18/21 levothyroxine 50 mcg tablet 50 mcg PO DAILY 04/14/21 07/18/21 furosemide 80 mg tablet 80 mg PO BID 06/06/21 07/18/21 vitamin B comp no.3-folic acid 1 1 tablet PO DAILY 06/06/21 07/18/21 mg-vit C 60 mg-biotin 300 mcg tablet ([facility]hanna Rx) lidocaine 5 % topical patch 1 patch transdermal DAILY PRN Pain 06/07/21 07/18/21 (Lidoderm) ofloxacin 0.3 % LEFT EYE QID 07/18/21 07/18/21 prednisolone acetate (PF) 1 % eye 1 drp LEFT EYE QID 07/18/21 07/18/21 drops,suspension sevelamer carbonate 800 mg tablet 1,600 mg PO TIDWM 07/18/21 07/18/21 (Renvela) Allergies Allergy/AdvReac Type Severity Reaction Status Date / Time Penicillins Allergy Unknown Unknown Verified 07/18/21 19:44 Sulfa (Sulfonamide Allergy Unknown Unknown Verified 07/18/21 19:44 Antibiotics) chlorpromazine Allergy Rash Verified 07/18/21 19:45 [From Thorazine] iohexol Allergy Anaphylaxis Verified 07/18/21 19:45 [From contrast - CT, X-RAY] valproic acid Allergy Hallucinati Verified 07/18/21 19:44 ng divalproex sodium AdvReac Severe Confusion, Verified 07/18/21 19:45 [From Depakote] Seizure, Hallucinations fluorescein AdvReac Severe HIVES, BP Verified 07/18/21 19:45 DROPPED, SWELLING TONGUE Review of Systems Review of Systems: CONSTITUTIONAL: Febrile, see HPI EYES: Denies visual changes, redness, or discharge. ENT: Denies rhinorrhea, congestion, sore throat, or otalgia. CARDIOVASCULAR: [place]
[2021-08-20 06:46] LABS: Influenza A QL RT-PCR Negative (Negative); Influenza B QL RT-PCR Negative (Negative); SARS-CoV-2 RNA PCR Negative
--- NOTE | 2021-08-20 08:11 | PC.NURSE ---
call from dialysis,pt to leave ED for treatment
--- NOTE | 2021-08-20 08:42 | PC.NURSE ---
received call from dialysis c/o pump beeping. will call vascular access to hopefully find better area for IV
[2021-08-20] MEDS: SODIUM CHLORIDE 0.9% IV 1,000 ML 999 ML IV CONT (10:24)
[2021-08-20] MEDS: EPOETIN ALFA-EPBX 20,000 UNITS/ML VIAL 20000 UNITS IV PUSH (10:36)
--- NOTE | 2021-08-20 12:46 | PM.CNNEP ---
Assessment and Plan Assessment and plan (1) End-stage renal disease (ESRD): Onset Date: Unknown Code(s): N18.6 - End stage renal disease Status: Chronic Assessment and Plan: HD todayand continue dialysis 3x/week (Wed/Wed/Wednesday) follow electrolytes, volume status, and clearance push fluid removal with dialysis and reassess respiratory status (2) Pneumonia: Qualifiers: Laterality: left Lung location: lower lobe of lung Pneumonia type: due to unspecified organism Qualified Code(s): J18.9 - Pneumonia, unspecified organism Code(s): J18.9 - Pneumonia, unspecified organism Status: Acute Assessment and Plan: etiology of fever(?) follow culture data empiric antibiotics follow respiratory status (3) Hypertension: Qualifiers: Hypertension type: essential hypertension Qualified Code(s): I10 - Essential (primary) hypertension Code(s): I10 - Essential (primary) hypertension Status: Chronic Assessment and Plan: well controlled at this time follow trend of hemodynamics (4) Anemia: Onset Date: Unknown Qualifiers: Anemia type: due to chronic kidney disease Chronic kidney disease stage: on chronic dialysis Qualified Code(s): N18.6 - End stage renal disease; D63.1 - Anemia in chronic kidney disease; Z99.2 - Dependence on renal dialysis Code(s): D64.9 - Anemia, unspecified Status: Chronic Assessment and Plan: due to ESRD Ep[facility] with HD follow trend H/H (5) Type 1 diabetes: Qualifiers: Chronic kidney disease stage: on chronic dialysis Diabetes mellitus complication detail: with chronic kidney disease Diabetes mellitus complication status: with kidney complications Qualified Code(s): E10.22 - Type 1 diabetes mellitus with diabetic chronic kidney disease; N18.6 - End stage renal disease; Z99.2 - Dependence on renal dialysis Code(s): E10.9 - Type 1 diabetes mellitus without complications Status: Chronic Assessment and Plan: etiology of ESRD brittle control at baseline glycemic control Will continue to follow History of Present Illness Reason for Consult Consult date: 08/20/21 Reason for consult: end stage renal disease Chief Complaint Chief complaint: pneumonia,pleural effusion, febrile illness,end-st History of Present Illness Narrative: The patient is a 40-year-old male with a past medical history as outlined below who presented to [facility] Emergency room for further evaluation shortness of breath, weakness, and fevers. The patient reports in the last few days he has had increasing/ progressive fatigue in association with worsening shortness of breath and low-grade fevers. As the symptoms continued to progress and the patient continued to feel worse, EMS was called for further evaluation. Upon her presentation, the patient was found to be hypoxic requiring an increase of his supplemental oxygen to 6 L from his baseline of 3 L. he was subsequently transferred to the emergency room for further evaluation. Workup and evaluation in the emergency room demonstrate patient be in mild respiratory distress and febrile. His major complaint was actually pain in his back, ribs, and tailbone that he attributes to a fall about a week ago. Routine blood test demonstrated labs consistent with his known history of end-stage renal disease and his chest x-ray showed evidence of fluid overload with the possibility of pneumonia as well. Appropriate cultures were obtained and he was started on broad-spectrum IV antibiotic therapy with subsequent admission to the hospital for further evaluation and therapy. The patient is currently receiving dialysis the time of my visit (he was seen on dialysis at 12:20PM). he appears to be tolerating the treatment but appears quite anxious and restless and is requesting stronger pain medications (Dilaudid) for his pain.
--- NOTE | 2021-08-20 14:07 | PM.IMHP ---
H&P: HPI History of Present Illness Date/Time: 08/20/21 14:07 Chief Complaint: 40-year-old male history of chronic kidney disease on dialysis presenting to the emergency department for evaluation of worsening generalized fatigue and fever.? Patient states over the last few days he has had increasing fatigue, increased shortness of breath and low-grade fever.? Patient called EMS and was found to have increased oxygen requirement.? Patient is normally on 3 L but was requiring 6 L of oxygen by nasal cannula.? Patient does get dialysis on Wednesday and Wednesday.? Patient did get his dialysis on Wednesday and is due dialysis today.? Patient denies any abdominal pain.? Patient did have a fall a few days ago and was evaluated at an outside hospital.? Patient does complain of tailbone pain.? Patient does have some bruising on his left lower abdomen but denies any significant abdominal pain.? Patient states he does not produce much urine.? Patient does have chronic wounds on both feet, none of which appear to be the active source of infection.? Patient states he has previously had COVID, approximately 2 years ago.? Patient is vaccinated against COVID.\ when I evaluated the patient he was not complaining of any shortness of breath. He was still on 6liters per likely did not require 6liters of oxygen. He appears to be calm and was finishing up with dialysis. His main complaint really wanted Dilaudid for tailbone pain because he had a fall over a week ago. Initially when I asked him when he fell, he said it was yesterday and he changed his story stated it was over week ago. currently denies any shortness of breath chest pain nausea vomiting etc. Review of Systems Review of Systems: 10 point ROS negative except as stated in HPI / Subjective PMFSH Past Medical History Medical History Anemia requiring transfusions Anxiety and depression Asthma End stage renal disease on dialysis Erythropoietin deficiency anemia Hypertension Migraines Renal osteodystrophy Seizure disorder (10/2019) Type 1 diabetes Diagnosed at the age of 14. Hemoglobin A1c was 6.6% on 11/06/2020. Surgical History Surgical History History of appendectomy History of cholecystectomy Previous back surgery Status post creation of arteriovenous fistula Status post insertion of dialysis catheter Status post LASIK surgery of both eyes Family History Family History Mother Diabetes mellitus Cerebrovascular accident Father Hypertension Social History Social History Social History: The patient lives with his . He is disabled. He has no biological children but his has 1 child that he is raising. Former smoker. He denies any alcohol marijuana or illicit drug use. He designates his , Dorothea Zuniga, as his surrogate decision maker. Code status: Full code. Smoking packs per day: 0.25 Smoking cigarettes per day: 5.0 Years smoked: 4 Smoking pack-years: 1.00 Smoking status: Former smoker Tobacco type: cigarettes Smokeless tobacco user: chewing tobacco Second hand tobacco smoke exposure: No Alcohol intake: never Drinks per week: 10 Substance use: never Substance use type: does not use Spiritual care concerns: Yes Meds Home Medications and Allergies Home Medications Medication Instructions Recorded Confirmed Type albuterol sulfate 90 mcg/actuation 2 puff inhalation Q6H PRN Wheezing 11/04/19 08/20/21 History aerosol inhaler (Ventolin HFA) hydralazine 50 mg tablet 100 mg PO TID 11/04/19 08/20/21 History amitriptyline 25 mg tablet 50 mg PO HS 06/01/20 08/20/21 History calcium acetate 2 tablet PO TIDWMEAL 06/01/20 08/20/21 History escitalopram oxalate 20 mg tablet 20 mg PO DAILY ##0 06/01/20 08/20/21 History famotidine 20 mg
--- NOTE | 2021-08-20 14:45 | ADMGEN ---
This patient, Ari Zuniga, was admitted to Medical Room 261-01. Patient/family oriented to hospital policies and general routines including ID bracelet, bed and alarms, visiting hours, pain management, procedures, bathroom and other care routines, personal items, smoking policy, room service/diet, and visiting hours. Information on how to activate the Rapid Response Team has been discussed. Patient/Family are encouraged to report perceived risks to care and to ask questions if they do not understand what they are told or what they should do.
[2021-08-20 16:27] LABS: Glucose Point of Care 334 mg/dl (65-105)
[2021-08-20] MEDS: INSULIN ASPART (*BKC) 100 UNITS/ML SUB-Q (16:57)
[2021-08-20] MEDS: hydrALAZINE HCL 50 MG TABLET 100 MG PO (17:03)
[2021-08-20] MEDS: SEVELAMER CARBONATE 800 MG TABLET 1600 MG PO (17:03)
[2021-08-20] MEDS: CALCIUM ACETATE 667 MG TABLET 1334 MG PO (17:03)
[2021-08-20] MEDS: FUROSEMIDE 80 MG TABLET PO (17:03)
[2021-08-20] MEDS: cloNIDine HCL 0.1 MG TABLET 0.3 MG PO (17:04)
[2021-08-20] MEDS: minoxidiL 2.5 MG TABLET PO (17:04)
[2021-08-20] MEDS: ONDANSETRON INJ 4 MG/2 ML VIAL IV PUSH (18:13)
[2021-08-20] MEDS: ATORVASTATIN 40 MG TABLET PO (21:47)
[2021-08-20] MEDS: PHENYTOIN SODIUM 100 MG EXTENDED RELEASE CAP BY MOUTH (21:47)
[2021-08-20] MEDS: carvediloL 25 MG TABLET PO (21:47)
[2021-08-20] MEDS: FAMOTIDINE 20 MG TABLET PO (21:47)
[2021-08-21] VITALS (11 sets, daily range): BP systolic 93–141; BP diastolic 56–82; PULSE 65–88; RESP 18–20; TEMP 36.3–37; O2SAT 95–100
[2021-08-21] MEDS: AMITRIPTYLINE HCL 25 MG TABLET 50 MG PO ×2 (01:14→20:39)
[2021-08-21 03:13] LABS: Glucose Point of Care 240 mg/dl (65-105)
[2021-08-21] MEDS: LEVOTHYROXINE SODIUM 50 MCG TABLET PO (06:09)
[2021-08-21 06:41] LABS: Estimated CRCL calculation 20 ml/min; Estimated Glomerular Filt Rate 13
[2021-08-21 07:50] LABS: Glucose Point of Care 420 mg/dl (65-105)
[2021-08-21] MEDS: INSULIN GLARGINE (*BKC) 100 UNITS/ML 15 UNITS SUB-Q (08:01)
[2021-08-21] MEDS: INSULIN ASPART (*BKC) 100 UNITS/ML 14 UNITS SUB-Q (08:01)
[2021-08-21] MEDS: FUROSEMIDE 80 MG TABLET PO ×2 (08:07→16:37)
[2021-08-21] MEDS: hydrALAZINE HCL 50 MG TABLET 100 MG PO ×2 (08:07→16:37)
[2021-08-21] MEDS: CALCIUM ACETATE 667 MG TABLET 1334 MG PO ×3 (08:07→16:37)
[2021-08-21] MEDS: carvediloL 25 MG TABLET PO ×2 (08:08→20:39)
[2021-08-21] MEDS: FAMOTIDINE 20 MG TABLET PO ×2 (08:08→20:40)
[2021-08-21] MEDS: ASPIRIN 81 MG CHEWABLE TABLET PO (08:08)
[2021-08-21] MEDS: ESCITALOPRAM OXALATE 10 MG TABLET 20 MG PO (08:09)
[2021-08-21] MEDS: VITAMIN B CMPLX/VIT C/FOLIC AC 1 CAPSULE 1 CAP PO (08:10)
[2021-08-21] MEDS: minoxidiL 2.5 MG TABLET PO ×2 (08:10→16:37)
[2021-08-21] MEDS: SEVELAMER CARBONATE 800 MG TABLET 1600 MG PO ×3 (08:16→16:37)
[2021-08-21] MEDS: cloNIDine HCL 0.1 MG TABLET 0.3 MG PO ×2 (08:18→16:41)
--- NOTE | 2021-08-21 12:05 | PM.IMPN ---
Progress Note: A&P Assessment and Plan (1) Pneumonia: Qualifiers: Laterality: left Lung location: lower lobe of lung Pneumonia type: due to unspecified organism Qualified Code(s): J18.9 - Pneumonia, unspecified organism Code(s): J18.9 - Pneumonia, unspecified organism Status: Acute Assessment and Plan: Likely volume overload. Hemodialysis has been started. Will see how the patient responds to getting fluid. Continue IV antibiotics. Respiratory status much improved after receiving hemodialysis (2) Chronic back pain: Code(s): M54.9 - Dorsalgia, unspecified; G89.29 - Other chronic pain Status: Acute Assessment and Plan: with no pain medicine. patient is requesting Dilaudid. Does not appear to be in no acute pain. (3) Volume overload: Code(s): E87.70 - Fluid overload, unspecified Status: Chronic Assessment and Plan: status post hemodialysis. respiratory status improved (4) Anxiety and depression: Code(s): F41.9 - Anxiety disorder, unspecified; F32.A - Depression, unspecified Status: Chronic Assessment and Plan: continue home meds (5) Anemia: Code(s): D64.9 - Anemia, unspecified Status: Chronic Assessment and Plan: secondary to renal insufficiency and chronic disease (6) Diabetes: Code(s): E11.9 - Type 2 diabetes mellitus without complications Status: Chronic Assessment and Plan: monitor blood sugars and insulin (7) Hypertension: Code(s): I10 - Essential (primary) hypertension Status: Chronic Assessment and Plan: monitor blood pressure Subjective Date/time seen: 08/21/21 12:05 No new complaints Exam Narrative: General: alert and oriented Psych: appropriate mood nad affect Eyes: PERRLA Neck: Trachea midline, no new lesions Skin: no changes Lungs: CTA Cardiac: Normal S1,S2, no MGR ABD: soft, nd, nt, nbs Ext: no new lesions, no cce Vasc: Pulses intact Objective Data Vital Signs Vital Signs: Vital Signs - 24 hr 08/20/21 12:10 08/20/21 12:20 08/20/21 13:09 Temperature 97.5 F L Pulse Rate 102 H 102 H 107 H Respiratory Rate 18 12 Blood Pressure 136/88 143/91 H 138/92 H Pulse Oximetry 92 Oxygen Delivery Oxygen Flow Rate 08/20/21 14:00 08/20/21 20:00 08/20/21 21:47 Temperature 99.4 F Pulse Rate 104 H 104 H 104 H Respiratory Rate 16 Blood Pressure 160/88 H Pulse Oximetry 98 98 Oxygen Delivery Nasal Cannula Oxygen Flow Rate 6 08/20/21 22:00 08/21/21 06:00 08/21/21 08:08 Temperature 98.4 F 98.6 F Pulse Rate 95 88 75 Respiratory Rate 21 H 20 Blood Pressure 162/91 H 140/76 Pulse Oximetry 100 98 Oxygen Delivery Oxygen Flow Rate 08/21/21 08:00 08/21/21 10:00 08/21/21 09:55 Temperature Pulse Rate 65 Respiratory Rate Blood Pressure 93/79 L Pulse Oximetry 100 98 Oxygen Delivery Nasal Cannula Nasal Cannula Oxygen Flow Rate 6 3 08/21/21 09:57 08/21/21 10:00 Temperature Pulse Rate Respiratory Rate Blood Pressure 98/62 L 98/56 L Pulse Oximetry Oxygen Delivery Oxygen Flow Rate Intake/Output Intake/Output: Intake & Output 08/18/21 08/19/21 08/20/21 08/21/21 23:59 23:59 23:59 23:59 Intake Total 1850 780 Output Total 3720 Balance -1870 780 Meds/Results Medications: Active Medications Generic Name Dose Route Start Last Admin Trade Name Freq PRN Reason Stop Dose Admin Acetaminophen 1,000 mg 08/21/21 11:11 Acetaminophen 500 Mg Tablet PO Q6H PRN Pain or Fever Albuterol 2 puff 08/20/21 14:09 Albuterol Sulfate (*Sp) Aerosol 1 Puff INHALATION Q6H PRN Wheezing Amitriptyline HCl 50 mg 08/20/21 21:00 08/21/21 01:14 Amitriptyline Hcl 25 Mg Tablet PO 50 mg HS BELKYS Administration Aspirin 81 mg 08/21/21 09:00 08/21/21 08:08 Aspirin 81 Mg Chewable Tablet PO 81 mg DAILY BELKYS Administration Brett
[2021-08-21 12:28] LABS: Glucose Point of Care 298 mg/dl (65-105)
[2021-08-21] MEDS: INSULIN ASPART (*BKC) 100 UNITS/ML SUB-Q (12:41)
[2021-08-21] MEDS: ACETAMINOPHEN 500 MG TABLET 1000 MG PO ×2 (12:42→20:40)
[2021-08-21] MEDS: LIDOCAINE 5% PATCH 1 PATCH TRANSDERM (14:56)
--- NOTE | 2021-08-21 15:26 | PM.PNNEP ---
Progress Note: A&P Assessment and Plan (1) End-stage renal disease (ESRD): Onset Date: Unknown Code(s): N18.6 - End stage renal disease Status: Chronic Assessment and Plan: HD todayand continue dialysis 3x/week (Wed/Wed/Wednesday) follow electrolytes, volume status, and clearance push fluid removal with dialysis and reassess respiratory status (2) Pneumonia: Qualifiers: Laterality: left Lung location: lower lobe of lung Pneumonia type: due to unspecified organism Qualified Code(s): J18.9 - Pneumonia, unspecified organism Code(s): J18.9 - Pneumonia, unspecified organism Status: Acute Assessment and Plan: etiology of fever(?) follow culture data empiric antibiotics follow respiratory status -- seems better more so secondary to fluid removal... (3) Hypertension: Qualifiers: Hypertension type: essential hypertension Qualified Code(s): I10 - Essential (primary) hypertension Code(s): I10 - Essential (primary) hypertension Status: Chronic Assessment and Plan: well controlled at this time follow trend of hemodynamics (4) Anemia: Onset Date: Unknown Qualifiers: Anemia type: due to chronic kidney disease Chronic kidney disease stage: on chronic dialysis Qualified Code(s): N18.6 - End stage renal disease; D63.1 - Anemia in chronic kidney disease; Z99.2 - Dependence on renal dialysis Code(s): D64.9 - Anemia, unspecified Status: Chronic Assessment and Plan: due to ESRD Epogen with HD follow trend H/H (5) Type 1 diabetes: Qualifiers: Chronic kidney disease stage: on chronic dialysis Diabetes mellitus complication detail: with chronic kidney disease Diabetes mellitus complication status: with kidney complications Qualified Code(s): E10.22 - Type 1 diabetes mellitus with diabetic chronic kidney disease; N18.6 - End stage renal disease; Z99.2 - Dependence on renal dialysis Code(s): E10.9 - Type 1 diabetes mellitus without complications Status: Chronic Assessment and Plan: etiology of ESRD brittle control at baseline glycemic control Will continue to follow Subjective Date/time seen: 08/21/21 15:26 Tolerated hemodialysis treatment yesterday with improvement in respiratory status after dialysis; no apparent issues or concerns voiced at this time; no events overnight or earlier this AM; no further fevers in the last 24 hours. Exam Narrative: General: WD/WN male in NAD Heart: normal S1 and S2; no rub Lungs: coarse with decreased breath sounds at bases Abdomen: soft, nontender, nondistended, positive bowel sounds Extremities: no cyanosis or clubbing; 1+ edema Skin: warm and dry Objective Data Vital Signs Vital Signs: Vital Signs Temp Pulse Resp BP Pulse Ox O2 Del Method O2 Flow Rate 08/21/21 14:00 36.3 C L 74 18 118/68 95 08/21/21 12:33 71 141/82 H 97 08/21/21 10:00 98/56 L 08/21/21 09:57 98/62 L 08/21/21 09:55 65 93/79 L 08/21/21 10:00 98 Nasal Cannula 3 08/21/21 08:00 100 Nasal Cannula 6 08/21/21 08:08 75 08/21/21 06:00 37.0 C 88 20 140/76 98 08/20/21 22:00 36.9 C 95 21 H 162/91 H 100 08/20/21 21:47 104 H 08/20/21 20:00 104 H 98 Nasal Cannula 6 Intake/Output Intake/Output: Intake & Output 08/18/21 08/19/21 08/20/21 08/21/21 23:59 23:59 23:59 23:59 Intake Total 1850 1015 Output Total 3720 0 Balance -1870 1015 Meds/Results Medications: Active Medications Generic Name Dose Route Start Last Admin Trade Name Freq PRN Reason Stop Dose Admin Acetaminophen 1,000 mg 08/21/21 11:11 08/21/21 12:42 Acetaminophen 500 Mg Tablet PO 1,000 mg Q6H PRN Administration Pain or Fever Albuterol 2 puff 08/20/21 14:09 Albuterol Sulfate (*Sp) Aerosol 1 Puff INHALATION Q6H PRN Wheezing
[2021-08-21 15:52] LABS: Vancomycin Trough 13.1 ug/mL (10.0-20.0)
[2021-08-21 16:26] LABS: Glucose Point of Care 136 mg/dl (65-105)
[2021-08-21] MEDS: ATORVASTATIN 40 MG TABLET PO (20:39)
[2021-08-22] VITALS (17 sets, daily range): BP systolic 126–199; BP diastolic 66–124; PULSE 74–93; RESP 16–20; TEMP 36–36.4; O2SAT 91–97
[2021-08-22] MEDS: ACETAMINOPHEN 500 MG TABLET 1000 MG PO (02:45)
[2021-08-22] MEDS: LORazepam INJ (*CRX) 2 MG/ML VIAL 1 MG IV PUSH ×2 (03:04→21:28)
[2021-08-22 03:15] LABS: Glucose Point of Care 103 mg/dl (65-105)
[2021-08-22] MEDS: LEVOTHYROXINE SODIUM 50 MCG TABLET PO (06:13)
[2021-08-22 07:04] LABS: Basophils Percent Auto 0.4 % (0.2-1.2); Eosinophils Absolute Auto 0.4 K/mm3 (0-0.3); Eosinophils Percent Auto 7.1 % (0-4.4); Hematocrit 27.4 % (42.0-52.0); Hemoglobin 8.6 g/dL (14.0-18.0); Immature Granulocyte Absolute 0.01 K/mm3 (0.00-0.031); Immature Granulocyte Percent A 0.2 % (0-0.5); Lymphocytes Absolute Auto 1.04 K/mm3 (0.9-3.2); Lymphocytes Percent Auto 18.9 % (18.3-44.2); Mean Corpuscular HGB Conc 31.4 g/dl (32-36); Mean Corpuscular Hemoglobin 29.9 pg (26-34); Mean Corpuscular Volume 95.1 fl (80-100); Mean Platelet Volume 9.9 fl (7.4-10.4); Monocytes Absolute Auto 0.9 K/mm3 (0.1-0.6); Monocytes Percent Auto 16.5 % (2.6-8.5); Neutrophils Absolute Auto 3.1 K/mm3 (1.3-6.7); Neutrophils Percent Auto 56.9 % (45.5-73.1); Platelet Count Result 218 k/mm3 (150-375); Red Blood Count 2.88 M/mm3 (4.6-6.20); Red Cell Distribution Width 15.3 % (11.5-14.5); White Blood Count 5.5 K/mm3 (4.5-10.0)
[2021-08-22] MEDS: INSULIN ASPART (*BKC) 100 UNITS/ML SUB-Q ×2 (07:33→16:29)
[2021-08-22] MEDS: CALCIUM ACETATE 667 MG TABLET 1334 MG PO ×3 (07:35→16:33)
[2021-08-22] MEDS: SEVELAMER CARBONATE 800 MG TABLET 1600 MG PO ×3 (07:35→16:33)
[2021-08-22 07:36] LABS: Glucose Point of Care 280 mg/dl (65-105)
[2021-08-22] MEDS: PHENYTOIN SODIUM 100 MG EXTENDED RELEASE CAP BY MOUTH ×3 (07:36→21:42)
[2021-08-22 07:38] LABS: Albumin Level 3.8 g/dL (3.5-5.1); Anion Gap 12 mmol/L (8-16); Blood Urea Nitrogen 59 mg/dL (9-20); Calcium 8.6 mg/dL (8.4-10.2); Carbon Dioxide 28 mmol/L (22-30); Chloride 93 mmol/L (98-107); Estimated CRCL calculation 16 ml/min; Estimated Glomerular Filt Rate 10; Glucose 272 mg/dL (65-110); Phosphorus 5.9 mg/dL (2.5-4.5); Potassium 4.2 mmol/L (3.4-5.0); Sodium 133 mmol/L (137-145)
[2021-08-22] MEDS: INSULIN GLARGINE (*BKC) 100 UNITS/ML 15 UNITS SUB-Q (07:38)
[2021-08-22] MEDS: LIDOCAINE 5% PATCH 1 PATCH TRANSDERM (07:39)
--- NOTE | 2021-08-22 07:55 | PC.NURSE ---
Patient to dialysis per bed at 0755.
--- NOTE | 2021-08-22 08:59 | PC.NURSE ---
Patient offered Tylenol for pain. Patient refused and wants to see the doctor to discuss pain medication.
--- NOTE | 2021-08-22 10:25 | PM.PNNEP ---
Progress Note: A&P Assessment and Plan (1) End-stage renal disease (ESRD): Onset Date: Unknown Code(s): N18.6 - End stage renal disease Status: Chronic Assessment and Plan: HD todayand continue dialysis 3x/week (Wed/Wed/Wednesday) follow electrolytes, volume status, and clearance push fluid removal with dialysis and reassess respiratory status (2) Pneumonia: Qualifiers: Laterality: left Lung location: lower lobe of lung Pneumonia type: due to unspecified organism Qualified Code(s): J18.9 - Pneumonia, unspecified organism Code(s): J18.9 - Pneumonia, unspecified organism Status: Acute Assessment and Plan: etiology of fever(?) follow culture data empiric antibiotics follow respiratory status (3) Bacteremia: Code(s): R78.81 - Bacteremia Status: Acute Assessment and Plan: blood culture results noted on antibioitics secondary to pneumonia(?) follow repeat cultures (4) Hypertension: Qualifiers: Hypertension type: essential hypertension Qualified Code(s): I10 - Essential (primary) hypertension Code(s): I10 - Essential (primary) hypertension Status: Chronic Assessment and Plan: well controlled at this time follow trend of hemodynamics (5) Anemia: Onset Date: Unknown Qualifiers: Anemia type: due to chronic kidney disease Chronic kidney disease stage: on chronic dialysis Qualified Code(s): N18.6 - End stage renal disease; D63.1 - Anemia in chronic kidney disease; Z99.2 - Dependence on renal dialysis Code(s): D64.9 - Anemia, unspecified Status: Chronic Assessment and Plan: due to ESRD Epogen with HD follow trend H/H (6) Type 1 diabetes: Qualifiers: Chronic kidney disease stage: on chronic dialysis Diabetes mellitus complication detail: with chronic kidney disease Diabetes mellitus complication status: with kidney complications Qualified Code(s): E10.22 - Type 1 diabetes mellitus with diabetic chronic kidney disease; N18.6 - End stage renal disease; Z99.2 - Dependence on renal dialysis Code(s): E10.9 - Type 1 diabetes mellitus without complications Status: Chronic Assessment and Plan: etiology of ESRD brittle control at baseline glycemic control Will continue to follow. Subjective Date/time seen: 08/22/21 10:25 Tolerating dialysis treatment at the time of my visit (seen on HD at ~ 10:00am) but is extremely anxious and restless associated with some cramping and pain in this tail bone and ribs that has been an issue secondary to fall about a week ago; requesting Dilaudid for these issues(?) since home hydrocodone is not helping him; asking to end his treatment early but myself and HD nurse are trying to convince to stay on treatment to maximize fluid removal. Exam Narrative: General: WD/WN male in NAD Heart: normal S1 and S2; no rub Lungs: coarse with decreased breath sounds at bases Abdomen: soft, nontender, nondistended, positive bowel sounds Extremities: no cyanosis or clubbing; 1+ edema Skin: warm and intact Objective Data Vital Signs Vital Signs: Vital Signs Temp Pulse Resp BP Pulse Ox O2 Del Method O2 Flow Rate 08/22/21 10:20 85 187/117 H 08/22/21 07:42 95 Nasal Cannula 3 08/22/21 10:00 86 191/66 H 08/22/21 09:40 84 187/124 H 08/22/21 09:20 91 177/111 H 08/22/21 09:00 83 171/99 H 08/22/21 08:40 84 199/100 H 08/22/21 08:20 74 173/95 H 08/22/21 08:08 80 177/103 H 08/22/21 08:00 36.4 C L 80 20 175/103 H 08/22/21 08:00 3 08/22/21 06:00 36.4 C 84 16 126/73 92 08/21/21 20:00 95 Nasal Cannula 3 08/21/21 21:51 36.4 C 72 20 123/78 95 08/21/21 20:39 70 08/21/21 14:00 36.3 C L 74 18 118/68 08/21/21 12:33 71 141/82 H 97 Intake/Output Intake/Output
--- NOTE | 2021-08-22 11:00 | PM.IMPN ---
Progress Note: A&P Assessment and Plan (1) Sepsis: Code(s): A41.9 - Sepsis, unspecified organism Status: Acute Assessment and Plan: Present on admission with leukocytosis, fever and tachycardia. Now with bacteremia consistent with septicemia. Probably related to pneumonia. Consider skin source although no obvious nidus with the exception that he has the fistula that is accessed frequently. Started on Rocephin and vancomycin. One blood culture growing coag-negative staph so this might be contaminant. Repeat blood cultures. Continue current IV antibiotics. (2) Pneumonia: Qualifiers: Laterality: left Lung location: lower lobe of lung Pneumonia type: due to unspecified organism Qualified Code(s): J18.9 - Pneumonia, unspecified organism Code(s): J18.9 - Pneumonia, unspecified organism Status: Acute Assessment and Plan: Chest x-ray shows diffuse bilateral airspace disease and bowel pleural effusions present on admission. Suspect majority this is related to his inability to tolerate a full dialysis treatment. He may have underlying pneumonia as well given the fever to 102. COVID and influenza tests were negative. Continue aggressive dialysis to improve fluid status. Check sputum. Continue IV antibiotics. Wean oxygen as tolerated. (3) Chronic back pain: Code(s): M54.9 - Dorsalgia, unspecified; G89.29 - Other chronic pain Status: Acute Assessment and Plan: Patient with complaints of back pain and rib pain after fall. He does have bruising noted in left flank. He takes hydrocodone home which will continue here. Will hold on starting Dilaudid. Check CT A/P to exclude intrabd hemorrhage (4) End stage renal disease: Code(s): N18.6 - End stage renal disease Status: Chronic Assessment and Plan: As above. Continue aggressive dialysis to improve fluid status. Appreciate Nephrology input. Anemia noted and probably related to renal failure. EPO has been started. (5) Volume overload: Code(s): E87.70 - Fluid overload, unspecified Status: Chronic Assessment and Plan: As above. (6) Anxiety and depression: Code(s): F41.9 - Anxiety disorder, unspecified; F32.A - Depression, unspecified Status: Chronic Assessment and Plan: Anxious today. Continue Lexapro. (7) Anemia: Code(s): D64.9 - Anemia, unspecified Status: Chronic Assessment and Plan: Secondary to renal insufficiency and chronic disease. TSAT low in May. Continue Epogen. Add iron (8) Diabetes: Code(s): E11.9 - Type 2 diabetes mellitus without complications Status: Chronic Assessment and Plan: A1c 6.7 in April. The patient's blood glucose was reviewed on 08/22 Glucose remains labile. Continue AccuCheks covering with sliding scale. Hypoglycemia protocol available as needed. Continue current medications. (9) Hypertension: Code(s): I10 - Essential (primary) hypertension Status: Chronic Assessment and Plan: Blood pressure is extremely labile since admission. Will continue current medications for now and adjust as needed. Suspect some of this elevated blood pressures related to fluid overload. Plan DVT prophylaxis: SCDs Code status: Full Subjective Date/time seen: 08/22/21 11:00 Interval history: 40yo male with DM, seizure d/o, ESRD and asthma here for GNW and fevers. Assuming care. Chart reviewed. Patient is complaining of pain in his tailbone, left ribs and back. This is related to a fall about a week ago. He is requesting Dilaudid. He normally takes hydrocodone at home but states this has not been helping. He states he has had x-rays elsewhere showing no fracture. He feels short of breath. He has cough that is nonproductive. Normal flatus and bowel movements. He does have some sores on his feet but they have been dry crusted without drain
[2021-08-22] MEDS: cloNIDine HCL 0.1 MG TABLET 0.3 MG PO ×2 (11:40→16:37)
[2021-08-22] MEDS: HYDROcodone/acetaminophen (*CRX) 5-325 MG TABLET 1 TAB PO ×2 (11:40→21:17)
[2021-08-22] MEDS: carvediloL 25 MG TABLET PO ×2 (11:42→21:16)
[2021-08-22] MEDS: FUROSEMIDE 80 MG TABLET PO ×2 (11:42→16:33)
[2021-08-22] MEDS: ESCITALOPRAM OXALATE 10 MG TABLET 20 MG PO (11:43)
[2021-08-22] MEDS: ASPIRIN 81 MG CHEWABLE TABLET PO (11:43)
[2021-08-22] MEDS: hydrALAZINE HCL 50 MG TABLET 100 MG PO ×2 (11:43→16:33)
[2021-08-22] MEDS: minoxidiL 2.5 MG TABLET PO ×2 (11:44→16:33)
[2021-08-22] MEDS: FAMOTIDINE 20 MG TABLET PO ×2 (11:44→21:16)
--- NOTE | 2021-08-22 11:53 | PC.NURSE ---
PER , DUE TO PT ENDING HD EARLY AND NOT RECEIVING RETOCRIT, 08/22/21 DOSE CAN BE HELD AND GIVEN DURING 08/23/21 HD TX
[2021-08-22 12:10] LABS: Glucose Point of Care 146 mg/dl (65-105)
[2021-08-22] MEDS: VITAMIN B CMPLX/VIT C/FOLIC AC 1 CAPSULE 1 CAP PO (12:38)
[2021-08-22 16:27] LABS: Glucose Point of Care 228 mg/dl (65-105)
[2021-08-22] MEDS: FERROUS SULFATE 324 MG TABLET PO (16:33)
[2021-08-22 21:09] LABS: Glucose Point of Care 232 mg/dl (65-105)
[2021-08-22] MEDS: AMITRIPTYLINE HCL 25 MG TABLET 50 MG PO (21:16)
[2021-08-22] MEDS: ATORVASTATIN 40 MG TABLET PO (21:16)
[2021-08-23] VITALS (15 sets, daily range): BP systolic 158–201; BP diastolic 86–109; PULSE 80–91; RESP 16–21; TEMP 35.8–36.5; O2SAT 94–97
[2021-08-23] MEDS: LEVOTHYROXINE SODIUM 50 MCG TABLET PO (05:30)
[2021-08-23 07:46] LABS: Glucose Point of Care 373 mg/dl (65-105)
[2021-08-23] MEDS: INSULIN ASPART (*BKC) 100 UNITS/ML SUB-Q ×2 (07:58→12:01)
[2021-08-23] MEDS: CALCIUM ACETATE 667 MG TABLET 1334 MG PO ×3 (08:03→18:04)
[2021-08-23] MEDS: SEVELAMER CARBONATE 800 MG TABLET 1600 MG PO ×3 (08:03→18:04)
[2021-08-23] MEDS: carvediloL 25 MG TABLET PO ×2 (08:04→21:09)
[2021-08-23] MEDS: minoxidiL 2.5 MG TABLET PO ×2 (08:04→18:07)
[2021-08-23] MEDS: FAMOTIDINE 20 MG TABLET PO ×2 (08:05→21:09)
[2021-08-23] MEDS: FERROUS SULFATE 324 MG TABLET PO ×2 (08:05→18:05)
[2021-08-23] MEDS: FUROSEMIDE 80 MG TABLET PO ×2 (08:05→18:05)
[2021-08-23] MEDS: ESCITALOPRAM OXALATE 10 MG TABLET 20 MG PO (08:05)
[2021-08-23] MEDS: ASPIRIN 81 MG CHEWABLE TABLET PO (08:06)
[2021-08-23] MEDS: VITAMIN B CMPLX/VIT C/FOLIC AC 1 CAPSULE 1 CAP PO (08:06)
[2021-08-23] MEDS: hydrALAZINE HCL 50 MG TABLET 100 MG PO ×2 (08:06→18:06)
[2021-08-23] MEDS: HYDROcodone/acetaminophen (*CRX) 5-325 MG TABLET 1 TAB PO ×2 (08:08→13:41)
[2021-08-23] MEDS: INSULIN GLARGINE (*BKC) 100 UNITS/ML 15 UNITS SUB-Q (08:13)
[2021-08-23] MEDS: HEPARIN SODIUM 5,000 UNITS/ML VIAL 5000 UNITS SUB-Q ×2 (08:16→21:09)
[2021-08-23 11:52] LABS: Glucose Point of Care 291 mg/dl (65-105)
--- NOTE | 2021-08-23 12:24 | PC.NURSE ---
pt wishes to take clonidine after his dialysis treatment
--- NOTE | 2021-08-23 13:44 | PC.NURSE ---
pt to dialysis via bed
[2021-08-23] MEDS: EPOETIN ALFA-EPBX 10,000 UNITS/ML VIAL 10000 UNITS IV PUSH (14:04)
--- NOTE | 2021-08-23 14:20 | PM.PNNEP ---
Progress Note: A&P Assessment and Plan (1) End-stage renal disease (ESRD): Onset Date: Unknown Code(s): N18.6 - End stage renal disease Status: Chronic Assessment and Plan: HD today and continue dialysis 3x/week (Wed/Wed/Wednesday) plan another session of HD/UF today to further optimize volume status follow electrolytes, volume status, and clearance push fluid removal with dialysis and reassess respiratory status (2) Pneumonia: Qualifiers: Laterality: left Lung location: lower lobe of lung Pneumonia type: due to unspecified organism Qualified Code(s): J18.9 - Pneumonia, unspecified organism Code(s): J18.9 - Pneumonia, unspecified organism Status: Acute Assessment and Plan: etiology of fever(?) follow culture data on antibiotics follow respiratory status (3) Bacteremia: Code(s): R78.81 - Bacteremia Status: Acute Assessment and Plan: blood culture results noted on antibioitics secondary to pneumonia(?) follow repeat cultures (4) Hypertension: Qualifiers: Hypertension type: essential hypertension Qualified Code(s): I10 - Essential (primary) hypertension Code(s): I10 - Essential (primary) hypertension Status: Chronic Assessment and Plan: elevated but he is quite hypertensive at baseline continue home medications follow trend of hemodynamics (5) Anemia: Onset Date: Unknown Qualifiers: Anemia type: due to chronic kidney disease Chronic kidney disease stage: on chronic dialysis Qualified Code(s): N18.6 - End stage renal disease; D63.1 - Anemia in chronic kidney disease; Z99.2 - Dependence on renal dialysis Code(s): D64.9 - Anemia, unspecified Status: Chronic Assessment and Plan: due to ESRD Epogen with HD follow trend H/H (6) Type 1 diabetes: Qualifiers: Chronic kidney disease stage: on chronic dialysis Diabetes mellitus complication detail: with chronic kidney disease Diabetes mellitus complication status: with kidney complications Qualified Code(s): E10.22 - Type 1 diabetes mellitus with diabetic chronic kidney disease; N18.6 - End stage renal disease; Z99.2 - Dependence on renal dialysis Code(s): E10.9 - Type 1 diabetes mellitus without complications Status: Chronic Assessment and Plan: etiology of ESRD brittle control at baseline glycemic control Will continue to follow. Subjective Date/time seen: 08/23/21 14:20 Tolerating hemodialysis treatment at the time of my visit (seen on HD at 2:00pm); ended his dialysis treatment early yesterday due to cramping and pain in association with anxiety; blood culture results noted; breathing/respiratory status seems better/improved currently; no issues/events overnight or earlier this AM. Exam Narrative: General: WD/WN male in NAD Heart: normal S1 and S2; no rub Lungs: coarse with decreased breath sounds at bases Abdomen: soft, nontender, nondistended, positive bowel sounds Extremities: no cyanosis or clubbing; 1+ edema Skin: no rash Objective Data Vital Signs Vital Signs: Vital Signs Temp Pulse Resp BP Pulse Ox O2 Del Method O2 Flow Rate 08/23/21 14:20 86 173/106 H 08/23/21 14:00 81 181/101 H 08/23/21 13:55 36.2 C L 85 21 H 178/108 H 08/23/21 13:55 6 08/23/21 08:04 80 08/23/21 03:39 35.8 C L 85 18 180/86 H 97 08/23/21 01:37 96 08/22/21 22:18 91 Nasal Cannula 3 08/22/21 21:16 84 08/22/21 19:50 36.0 C L 84 18 152/90 H 91 Intake/Output Intake/Output: Intake & Output 08/20/21 08/21/21 08/22/21 08/23/21 23:59 23:59 23:59 23:59 Intake Total 1850 1015 1250 920 Output Total 3720 0 2300 Balance -1870 1015 -1050 920 Meds/Results Medications: Active Medications Generic Name Dose Route Start Last Admin Trade Name Freq PRN Reason Stop Dos
--- NOTE | 2021-08-23 14:20 | P.PNNP_ITS ---
Progress Note: A&P Assessment and Plan (1) End-stage renal disease (ESRD): Onset Date: Unknown Code(s): N18.6 - End stage renal disease Status: Chronic Assessment and Plan: * HD today and continue dialysis 3x/week (Wed/Wed/Wednesday) * plan another session of HD/UF today to further optimize volume status * follow electrolytes, volume status, and clearance * push fluid removal with dialysis and reassess respiratory status (2) Pneumonia: Qualifiers: Laterality: left Lung location: lower lobe of lung Pneumonia type: due to unspecified organism Qualified Code(s): J18.9 - Pneumonia, unspecified organism Code(s): J18.9 - Pneumonia, unspecified organism Status: Acute Assessment and Plan: * etiology of fever(?) * follow culture data * on antibiotics * follow respiratory status (3) Bacteremia: Code(s): R78.81 - Bacteremia Status: Acute Assessment and Plan: * blood culture results noted * on antibioitics * secondary to pneumonia(?) * follow repeat cultures (4) Hypertension: Qualifiers: Hypertension type: essential hypertension Qualified Code(s): I10 - Essential (primary) hypertension Code(s): I10 - Essential (primary) hypertension Status: Chronic Assessment and Plan: * elevated but he is quite hypertensive at baseline * continue home medications * follow trend of hemodynamics (5) Anemia: Onset Date: Unknown Qualifiers: Anemia type: due to chronic kidney disease Chronic kidney disease stage: on chronic dialysis Qualified Code(s): N18.6 - End stage renal disease; D63.1 - Anemia in chronic kidney disease; Z99.2 - Dependence on renal dialysis Code(s): D64.9 - Anemia, unspecified Status: Chronic Assessment and Plan: * due to ESRD * Epogen with HD * follow trend H/H (6) Type 1 diabetes: Qualifiers: Chronic kidney disease stage: on chronic dialysis Diabetes mellitus complication detail: with chronic kidney disease Diabetes mellitus complication status: with kidney complications Qualified Code(s): E10.22 - Type 1 diabetes mellitus with diabetic chronic kidney disease; N18.6 - End stage renal disease; Z99.2 - Dependence on renal dialysis Code(s): E10.9 - Type 1 diabetes mellitus without complications Status: Chronic Assessment and Plan: * etiology of ESRD * brittle control at baseline * glycemic control Will continue to follow. Subjective Date/time seen: 08/23/21 14:20 Tolerating hemodialysis treatment at the time of my visit (seen on HD at 2:00pm); ended his dialysis treatment early yesterday due to cramping and pain in association with anxiety; blood culture results noted; breathing/respiratory status seems better/improved currently; no issues/events overnight or earlier this AM. Exam Narrative: General: WD/WN male in NAD Heart: normal S1 and S2; no rub Lungs: coarse with decreased breath sounds at bases Abdomen: soft, nontender, nondistended, positive bowel sounds Extremities: no cyanosis or clubbing; 1+ edema Skin: no rash Objective Data Vital Signs Vital Signs: Vital Signs Temp Pulse Resp BP Pulse Ox O2 Del Method O2 Flow Rate 08/23/21 14:20 86 173/106 H 08/23/21 14:00 81
--- NOTE | 2021-08-23 16:45 | PM.IMPN ---
Progress Note: A&P Assessment and Plan (1) Sepsis: Code(s): A41.9 - Sepsis, unspecified organism Status: Acute Assessment and Plan: Present on admission with leukocytosis, fever and tachycardia. Now with bacteremia consistent with septicemia. Probably related to pneumonia. Consider skin source although no obvious nidus with the exception that he has the fistula that is accessed frequently. Started on Rocephin and vancomycin. One blood culture growing coag-negative staph and the 2nd growing Group G Streptococcus. Repeat blood cultures NGTD. Continue current IV antibiotics but will advance Rocephin to 2gm. (2) Pneumonia: Qualifiers: Laterality: left Lung location: lower lobe of lung Pneumonia type: due to unspecified organism Qualified Code(s): J18.9 - Pneumonia, unspecified organism Code(s): J18.9 - Pneumonia, unspecified organism Status: Acute Assessment and Plan: Chest x-ray shows diffuse bilateral airspace disease and bilateral pleural effusions present on admission. Suspect majority this is related to his inability to tolerate a full dialysis treatment. He may have underlying pneumonia as well given the fever to 102. COVID and influenza tests were negative. Continue aggressive dialysis to improve fluid status. Continue IV antibiotics. Wean oxygen as tolerated. (3) Volume overload: Code(s): E87.70 - Fluid overload, unspecified Status: Chronic Assessment and Plan: CT shows moderate to large pleural effusions with passive atelectasis, diffuse interstitial opacities in the lung consistent with pulmonary edema and moderate ascites. Clinically he has anasarca related to inability tolerate dialysis. Encouraged compliance with dialysis. Continue dialysis per Nephrology. (4) Chronic back pain: Code(s): M54.9 - Dorsalgia, unspecified; G89.29 - Other chronic pain Status: Acute Assessment and Plan: Patient with complaints of back pain and rib pain after fall. He does have bruising noted in left flank. He takes hydrocodone at home which will continue here. Will hold on starting Dilaudid. CT Jeni/P does not reveal any concerning findings to suggest internal bleeding. (5) End stage renal disease: Code(s): N18.6 - End stage renal disease Status: Chronic Assessment and Plan: As above. Continue aggressive dialysis to improve fluid status. Appreciate Nephrology input. Anemia noted and probably related to renal failure. EPO has been started. (6) Anxiety and depression: Code(s): F41.9 - Anxiety disorder, unspecified; F32.A - Depression, unspecified Status: Chronic Assessment and Plan: Mood stable today. Continue Lexapro. (7) Anemia: Code(s): D64.9 - Anemia, unspecified Status: Chronic Assessment and Plan: Secondary to renal insufficiency and chronic disease. TSAT low in May. Continue Epogen. Continue iron. (8) Diabetes: Code(s): E11.9 - Type 2 diabetes mellitus without complications Status: Chronic Assessment and Plan: A1c 6.7 in April. The patient's blood glucose was reviewed on 08/23 Glucose remains labile. Continue AccuCheks covering with sliding scale. Hypoglycemia protocol available as needed. Continue current medications. (9) Hypertension: Code(s): I10 - Essential (primary) hypertension Status: Chronic Assessment and Plan: Blood pressure was labile but now more consistently elevated probably related to fluid overload. Will continue current medications for now and adjust as needed. Plan DVT prophylaxis: Heparin Code status: Full Subjective Date/time seen: 08/23/21 16:45 Interval history: 40yo male with DM, seizure d/o, ESRD and asthma here for GNW and fevers. Patient slept poorly last night. He believes the medication he uses to sleep causes paranoia. He had hemodialysis again today but
--- NOTE | 2021-08-23 17:11 | PC.NURSE ---
pt returned from dialysis
[2021-08-23 17:18] LABS: Glucose Point of Care 150 mg/dl (65-105)
[2021-08-23] MEDS: cloNIDine HCL 0.1 MG TABLET 0.3 MG PO (18:08)
[2021-08-23] MEDS: AMITRIPTYLINE HCL 25 MG TABLET 50 MG PO (21:09)
[2021-08-23] MEDS: ATORVASTATIN 40 MG TABLET PO (21:09)
[2021-08-23] MEDS: cefTRIAXone 1 GM VIAL IM (21:58)
[2021-08-23 23:50] LABS: Glucose Point of Care 287 mg/dl (65-105)
[2021-08-24] VITALS (9 sets, daily range): BP systolic 160–195; BP diastolic 84–100; PULSE 83–96; RESP 16–18; TEMP 36–36.5; O2SAT 93–96
[2021-08-24] MEDS: MELATONIN 5 MG TABLET PO ×2 (01:15→21:14)
[2021-08-24] MEDS: HYDROcodone/acetaminophen (*CRX) 5-325 MG TABLET 1 TAB PO ×2 (02:51→08:31)
[2021-08-24 05:45] LABS: Hematocrit 31.5 % (42.0-52.0); Mean Corpuscular HGB Conc 31.7 g/dl (32-36); Mean Corpuscular Hemoglobin 29.6 pg (26-34); Mean Corpuscular Volume 93.2 fl (80-100); Mean Platelet Volume 9.2 fl (7.4-10.4); Platelet Count Result 241 k/mm3 (150-375); Red Blood Count 3.38 M/mm3 (4.6-6.20); Red Cell Distribution Width 15.3 % (11.5-14.5); White Blood Count 6.5 K/mm3 (4.5-10.0)
[2021-08-24] MEDS: LEVOTHYROXINE SODIUM 50 MCG TABLET PO (05:58)
[2021-08-24 06:02] LABS: Albumin Level 3.8 g/dL (3.5-5.1); Anion Gap 8 mmol/L (8-16); Blood Urea Nitrogen 41 mg/dL (9-20); Calcium 8.6 mg/dL (8.4-10.2); Carbon Dioxide 32 mmol/L (22-30); Chloride 93 mmol/L (98-107); Estimated CRCL calculation 20 ml/min; Estimated Glomerular Filt Rate 13; Glucose 477 mg/dL (65-110); Magnesium 2.3 mg/dL (1.6-2.3); Phosphorus 3.9 mg/dL (2.5-4.5); Potassium 4.1 mmol/L (3.4-5.0); Sodium 133 mmol/L (137-145)
[2021-08-24 07:47] LABS: Glucose Point of Care 462 mg/dl (65-105)
[2021-08-24 07:52] LABS: Phenytoin Dilantin < 3 ug/mL (10-20)
[2021-08-24] MEDS: INSULIN ASPART (*BKC) 100 UNITS/ML 10 UNITS SUB-Q (08:17)
[2021-08-24] MEDS: INSULIN GLARGINE (*BKC) 100 UNITS/ML 15 UNITS SUB-Q (08:19)
[2021-08-24] MEDS: VITAMIN B CMPLX/VIT C/FOLIC AC 1 CAPSULE 1 CAP PO (08:27)
[2021-08-24] MEDS: CALCIUM ACETATE 667 MG TABLET 1334 MG PO ×3 (08:27→17:12)
[2021-08-24] MEDS: FUROSEMIDE 80 MG TABLET PO ×2 (08:27→17:13)
[2021-08-24] MEDS: SEVELAMER CARBONATE 800 MG TABLET 1600 MG PO ×3 (08:27→17:14)
[2021-08-24] MEDS: ESCITALOPRAM OXALATE 10 MG TABLET 20 MG PO (08:27)
[2021-08-24] MEDS: ASPIRIN 81 MG CHEWABLE TABLET PO (08:27)
[2021-08-24] MEDS: minoxidiL 2.5 MG TABLET PO ×2 (08:27→17:13)
[2021-08-24] MEDS: FERROUS SULFATE 324 MG TABLET PO ×2 (08:27→17:13)
[2021-08-24] MEDS: HEPARIN SODIUM 5,000 UNITS/ML VIAL 5000 UNITS SUB-Q ×2 (08:28→21:15)
[2021-08-24] MEDS: FAMOTIDINE 20 MG TABLET PO ×2 (08:28→21:14)
[2021-08-24] MEDS: carvediloL 25 MG TABLET PO ×2 (08:28→21:14)
[2021-08-24] MEDS: hydrALAZINE HCL 50 MG TABLET 100 MG PO ×3 (08:29→21:14)
[2021-08-24] MEDS: cloNIDine HCL 0.1 MG TABLET 0.3 MG PO ×2 (08:31→17:12)
[2021-08-24 08:36] LABS: Vancomycin Random 20.1 ug/mL (10-20)
[2021-08-24 11:38] LABS: Glucose Point of Care 328 mg/dl (65-105)
[2021-08-24] MEDS: INSULIN ASPART (*BKC) 100 UNITS/ML SUB-Q (12:22)
--- NOTE | 2021-08-24 12:45 | PM.PNNEP ---
Progress Note: A&P Assessment and Plan (1) End-stage renal disease (ESRD): Onset Date: Unknown Code(s): N18.6 - End stage renal disease Status: Chronic Assessment and Plan: HD tomorrowand continue dialysis 3x/week (Wed/Wed/Wednesday) follow electrolytes, volume status, and clearance push fluid removal with dialysis as tolerated (2) Pneumonia: Qualifiers: Laterality: left Lung location: lower lobe of lung Pneumonia type: due to unspecified organism Qualified Code(s): J18.9 - Pneumonia, unspecified organism Code(s): J18.9 - Pneumonia, unspecified organism Status: Acute Assessment and Plan: etiology of fever(?) follow culture data on antibiotics follow respiratory status (3) Bacteremia: Code(s): R78.81 - Bacteremia Status: Acute Assessment and Plan: blood culture results noted on antibioitics secondary to pneumonia(?) follow repeat cultures (4) Hypertension: Qualifiers: Hypertension type: essential hypertension Qualified Code(s): I10 - Essential (primary) hypertension Code(s): I10 - Essential (primary) hypertension Status: Chronic Assessment and Plan: elevated but he is quite hypertensive at baseline continue home medications follow trend of hemodynamics (5) Anemia: Onset Date: Unknown Qualifiers: Anemia type: due to chronic kidney disease Chronic kidney disease stage: on chronic dialysis Qualified Code(s): N18.6 - End stage renal disease; D63.1 - Anemia in chronic kidney disease; Z99.2 - Dependence on renal dialysis Code(s): D64.9 - Anemia, unspecified Status: Chronic Assessment and Plan: due to ESRD Epogen with HD follow trend H/H (6) Type 1 diabetes: Qualifiers: Chronic kidney disease stage: on chronic dialysis Diabetes mellitus complication detail: with chronic kidney disease Diabetes mellitus complication status: with kidney complications Qualified Code(s): E10.22 - Type 1 diabetes mellitus with diabetic chronic kidney disease; N18.6 - End stage renal disease; Z99.2 - Dependence on renal dialysis Code(s): E10.9 - Type 1 diabetes mellitus without complications Status: Chronic Assessment and Plan: etiology of ESRD brittle control at baseline glycemic control Will continue to follow. Subjective Date/time seen: 08/24/21 12:45 Tolerated dialysis treatment yesterday but once again, fluid removal/ultrafiltration was limited by cramping; no other acute distress voiced at the time of my visit; asking me about potential discharge. Exam Narrative: General: WD/WN male in NAD Heart: normal S1 and S2; no rub Lungs: coarse with decreased breath sounds at bases Abdomen: soft, nontender, nondistended, positive bowel sounds Extremities: no cyanosis or clubbing; 1+ edema Skin: warm and intact Objective Data Vital Signs Vital Signs: Vital Signs Temp Pulse Resp BP Pulse Ox O2 Del Method O2 Flow Rate 08/24/21 12:00 36.4 C 84 16 184/91 H 96 08/24/21 08:15 96 16 95 Nasal Cannula 4 08/24/21 08:55 95 Nasal Cannula 4 08/24/21 08:28 96 08/24/21 04:26 36.5 C 96 16 195/100 H 95 08/23/21 21:09 91 08/23/21 19:56 36.5 C 91 16 158/92 H 94 08/23/21 19:46 97 Nasal Cannula 6 Intake/Output Intake/Output: Intake & Output 08/21/21 08/22/21 08/23/21 08/24/21 23:59 23:59 23:59 23:59 Intake Total 1015 1250 1520 1176 Output Total 0 2300 1300 0 Balance 1015 -3228 826 6034 Meds/Results Medications: Active Medications Generic Name Dose Route Start Last Admin Trade Name Freq PRN Reason Stop Dose Admin Acetaminophen 650 mg 08/22/21 11:27 Acetaminophen 325 Mg Tablet PO Q6H PRN Mild Pain (1-5) Or Fever Hydrocodone Bitart/Acetaminophen 1 tab 08/22/21 11:27 08/24/21 08:31 Hydrocodone/Acetaminophen (*Crx) 5-
--- NOTE | 2021-08-24 14:07 | PM.IMPN ---
Progress Note: A&P Assessment and Plan (1) Sepsis: Code(s): A41.9 - Sepsis, unspecified organism Status: Acute Assessment and Plan: Present on admission with leukocytosis, fever and tachycardia. Now with bacteremia consistent with septicemia. Probably related to pneumonia. Consider skin source although no obvious nidus with the exception that he has the fistula that is accessed frequently. Started on Rocephin and vancomycin. One blood culture growing coag-negative staph and the 2nd growing Group G Streptococcus both sensitive to Vancomycin. Repeat blood cultures NGTD. We have lost his IV site and can not put in Midline due to his ESRD. Will stop Rocephin and continue Vanco monotherapy to cover both to complete a 2 week course. He can receive Vanco during HD. Vanco random level at 20 (2) Pneumonia: Qualifiers: Laterality: left Lung location: lower lobe of lung Pneumonia type: due to unspecified organism Qualified Code(s): J18.9 - Pneumonia, unspecified organism Code(s): J18.9 - Pneumonia, unspecified organism Status: Acute Assessment and Plan: Chest x-ray shows diffuse bilateral airspace disease and bilateral pleural effusions present on admission. Suspect majority this is fluid overload related to his inability to tolerate a full dialysis treatment. He may have underlying pneumonia as well given the fever to 102 and bacteremia. COVID and influenza tests were negative. Down to 4L. Continue aggressive dialysis to improve fluid status. Continue IV antibiotics. Wean oxygen as tolerated. (3) Volume overload: Code(s): E87.70 - Fluid overload, unspecified Status: Chronic Assessment and Plan: CT shows moderate to large pleural effusions with passive atelectasis, diffuse interstitial opacities in the lung consistent with pulmonary edema and moderate ascites. Clinically he has anasarca related to inability tolerate dialysis. Encouraged compliance with dialysis. Continue dialysis per Nephrology. (4) Chronic back pain: Code(s): M54.9 - Dorsalgia, unspecified; G89.29 - Other chronic pain Status: Acute Assessment and Plan: Patient with complaints of back pain and rib pain after fall. He does have bruising noted in left flank. CT Jeni/P does not reveal any concerning findings to suggest internal bleeding. He takes hydrocodone at home which we continued here. (5) End stage renal disease: Code(s): N18.6 - End stage renal disease Status: Chronic Assessment and Plan: As above. Continue aggressive dialysis to improve fluid status. Appreciate Nephrology input. Anemia noted and probably related to renal failure. EPO has been started. (6) Anxiety and depression: Code(s): F41.9 - Anxiety disorder, unspecified; F32.A - Depression, unspecified Status: Chronic Assessment and Plan: In good spirits today. Continue Lexapro. (7) Anemia: Code(s): D64.9 - Anemia, unspecified Status: Chronic Assessment and Plan: Secondary to renal insufficiency and chronic disease. TSAT low in May. Continue Epogen. Continue iron. (8) Diabetes: Code(s): E11.9 - Type 2 diabetes mellitus without complications Status: Chronic Assessment and Plan: A1c 6.7 in April. The patient's blood glucose was reviewed on 08/24 Glucose remains labile but much higher today. Continue AccuCheks covering with sliding scale. Hypoglycemia protocol available as needed. Advance Lantus. (9) Hypertension: Code(s): I10 - Essential (primary) hypertension Status: Chronic Assessment and Plan: Blood pressure was labile but now more consistently elevated probably related to fluid overload. Plan DVT prophylaxis: Heparin Code status: Full Subjective Date/time seen: 08/24/21 14:07 Interval history: 40yo male with DM, seizure d/o, ESRD and asthma here for GNW and fevers
[2021-08-24] MEDS: INSULIN GLARGINE (*BKC) 100 UNITS/ML SUB-Q (14:59)
[2021-08-24 16:47] LABS: Glucose Point of Care 145 mg/dl (65-105)
[2021-08-24] MEDS: ATORVASTATIN 40 MG TABLET PO (21:14)
[2021-08-24 21:48] LABS: Glucose Point of Care 134 mg/dl (65-105)
[2021-08-24] MEDS: AMITRIPTYLINE HCL 25 MG TABLET 50 MG PO (23:25)
[2021-08-25] VITALS (12 sets, daily range): BP systolic 150–190; BP diastolic 86–116; PULSE 64–91; RESP 18; TEMP 35.9–36.5; O2SAT 92–98
[2021-08-25] MEDS: HYDROcodone/acetaminophen (*CRX) 5-325 MG TABLET 1 TAB PO (01:12)
[2021-08-25] MEDS: hydrALAZINE HCL 50 MG TABLET 100 MG PO ×2 (05:46→21:10)
[2021-08-25] MEDS: LEVOTHYROXINE SODIUM 50 MCG TABLET PO (05:46)
[2021-08-25 06:21] LABS: Estimated CRCL calculation 17 ml/min; Estimated Glomerular Filt Rate 11
[2021-08-25 06:24] LABS: Albumin Level 3.7 g/dL (3.5-5.1); Anion Gap 9 mmol/L (8-16); Blood Urea Nitrogen 53 mg/dL (9-20); Carbon Dioxide 30 mmol/L (22-30); Chloride 96 mmol/L (98-107); Estimated CRCL calculation 17 ml/min; Estimated Glomerular Filt Rate 10; Glucose 191 mg/dL (65-110); Phosphorus 4.3 mg/dL (2.5-4.5); Sodium 135 mmol/L (137-145)
[2021-08-25] MEDS: PHENYTOIN SODIUM 100 MG EXTENDED RELEASE CAP BY MOUTH ×3 (08:17→20:41)
[2021-08-25] MEDS: SEVELAMER CARBONATE 800 MG TABLET 1600 MG PO ×3 (08:17→17:07)
[2021-08-25] MEDS: carvediloL 25 MG TABLET PO ×2 (08:18→21:10)
[2021-08-25] MEDS: VITAMIN B CMPLX/VIT C/FOLIC AC 1 CAPSULE 1 CAP PO (08:18)
[2021-08-25] MEDS: FUROSEMIDE 80 MG TABLET PO ×2 (08:19→17:08)
[2021-08-25] MEDS: FERROUS SULFATE 324 MG TABLET PO ×2 (08:19→17:08)
[2021-08-25] MEDS: minoxidiL 2.5 MG TABLET PO ×2 (08:19→17:08)
[2021-08-25] MEDS: FAMOTIDINE 20 MG TABLET PO ×2 (08:19→20:36)
[2021-08-25] MEDS: ASPIRIN 81 MG CHEWABLE TABLET PO (08:19)
[2021-08-25] MEDS: ESCITALOPRAM OXALATE 10 MG TABLET 20 MG PO (08:19)
[2021-08-25] MEDS: CALCIUM ACETATE 667 MG TABLET 1334 MG PO ×3 (08:24→17:07)
[2021-08-25] MEDS: HEPARIN SODIUM 5,000 UNITS/ML VIAL 5000 UNITS SUB-Q ×2 (08:25→20:40)
[2021-08-25] MEDS: LIDOCAINE 5% PATCH 1 PATCH TRANSDERM (08:29)
[2021-08-25] MEDS: INSULIN ASPART (*BKC) 100 UNITS/ML SUB-Q ×2 (08:29→12:19)
[2021-08-25 08:33] LABS: Glucose Point of Care 223 mg/dl (65-105)
[2021-08-25] MEDS: INSULIN GLARGINE (*BKC) 100 UNITS/ML 18 UNITS SUB-Q (08:33)
[2021-08-25] MEDS: cloNIDine HCL 0.1 MG TABLET 0.3 MG PO ×2 (08:36→17:11)
--- NOTE | 2021-08-25 08:36 | PM.PNNEP ---
Progress Note: A&P Assessment and Plan (1) End-stage renal disease (ESRD): Onset Date: Unknown Code(s): N18.6 - End stage renal disease Status: Chronic Assessment and Plan: HD scheduled for today. follow electrolytes, volume status, and clearance push fluid removal with dialysis and reassess respiratory status (2) Pneumonia: Qualifiers: Laterality: left Lung location: lower lobe of lung Pneumonia type: due to unspecified organism Qualified Code(s): J18.9 - Pneumonia, unspecified organism Code(s): J18.9 - Pneumonia, unspecified organism Status: Acute Assessment and Plan: etiology of fever(?) follow culture data empiric antibiotics He is back down to2L of oxygen. He is on this at home. follow respiratory status (3) Hypertension: Qualifiers: Hypertension type: essential hypertension Qualified Code(s): I10 - Essential (primary) hypertension Code(s): I10 - Essential (primary) hypertension Status: Chronic Assessment and Plan: Blood pressure is a bit high today. It is difficult to control as an outpatient. He still has some fluid on. Will remove fluid today and see how the blood pressure is after fluid removal. Continue to adjust meds as an outpatient to help his blood pressure. (4) Anemia: Onset Date: Unknown Qualifiers: Anemia type: due to chronic kidney disease Chronic kidney disease stage: on chronic dialysis Qualified Code(s): N18.6 - End stage renal disease; D63.1 - Anemia in chronic kidney disease; Z99.2 - Dependence on renal dialysis Code(s): D64.9 - Anemia, unspecified Status: Chronic Assessment and Plan: due to ESRD Epogen with HD Hemoglobin 10 yesterday (5) Type 1 diabetes: Qualifiers: Diabetes mellitus complication status: with kidney complications Diabetes mellitus complication detail: with chronic kidney disease Chronic kidney disease stage: on chronic dialysis Qualified Code(s): E10.22 - Type 1 diabetes mellitus with diabetic chronic kidney disease; N18.6 - End stage renal disease; Z99.2 - Dependence on renal dialysis Code(s): E10.9 - Type 1 diabetes mellitus without complications Status: Chronic Assessment and Plan: etiology of ESRD brittle control at baseline glycemic control Will continue to follow (6) Bacteremia: Code(s): R78.81 - Bacteremia Status: Acute Subjective Date/time seen: 08/25/21 08:36 Interval history: Ari feels better today. Eager for discharge. He is due for dialysis today. Exam Narrative: General: WD/WN male in NAD Heart: normal S1 and S2; no rub or gallop Lungs: coarse with decreased breath sounds at bases Abdomen: soft, nontender, nondistended, positive bowel sounds Extremities: no cyanosis or clubbing; 1+ Bilateral edema Skin: warm and intact Objective Data Vital Signs Vital Signs: Vital Signs - 24 hr 08/24/21 08:55 08/24/21 14:00 08/24/21 17:53 Temperature 36.4 C Pulse Rate 84 Respiratory Rate 16 Blood Pressure 184/91 H Pulse Oximetry 95 96 93 Oxygen Delivery Nasal Cannula Nasal Cannula Oxygen Flow Rate 4 2 08/24/21 19:23 08/24/21 21:14 08/24/21 20:00 Temperature 36.0 C L Pulse Rate 83 83 Respiratory Rate 18 Blood Pressure 160/84 H Pulse Oximetry 94 94 Oxygen Delivery Nasal Cannula Oxygen Flow Rate 3 08/25/21 03:39 08/25/21 08:18 Temperature 35.9 C L Pulse Rate 91 91 Respiratory Rate 18 Blood Pressure 162/86 H Pulse Oximetry 92 Oxygen Delivery Oxygen Flow Rate Intake/Output Intake/Output: Intake & Output 08/22/21 08/23/21 08/24/21 08/25/21 23:59 23:59 23:59 23:59 Intake Total 1250 1520 1356 100 Output Total 2300 1300 0 Balance -3265 207 4900 100 Meds/Results Medications: Active Medications Generic Name Dose Route Start Last Admin Trade Name Freq
[2021-08-25 11:55] LABS: Glucose Point of Care 294 mg/dl (65-105)
[2021-08-25] MEDS: EPOETIN ALFA-EPBX 10,000 UNITS/ML VIAL 10000 UNITS IV PUSH (15:44)
--- NOTE | 2021-08-25 16:45 | PM.IMPN ---
Progress Note: A&P Assessment and Plan (1) Sepsis: Code(s): A41.9 - Sepsis, unspecified organism Status: Acute Assessment and Plan: Present on admission with leukocytosis, fever and tachycardia.? Now with bacteremia consistent with septicemia.? Probably related to pneumonia.? Consider skin source although no obvious nidus with the exception that he has the fistula that is accessed frequently.?He has chronic lesions on his feet but dry without evidence of infection. Was started on Rocephin and vancomycin (started 08/20).? One blood culture growing coag-negative staph and the 2nd growing Group G Streptococcus both sensitive to Vancomycin. Suspect Strept PNA and that the CNStaph is a contaminant but can not completely exclude given the fevers. Repeat blood cultures NGTD. We have lost his IV site and can not put in Midline due to his ESRD. Thus we stopped Rocephin and will continue Vanco monotherapy for now. PharmD ID consult. Could use Vanco monotherapy with HD for 2 weeks (2) Pneumonia: Qualifiers: Laterality: left Lung location: lower lobe of lung Pneumonia type: due to unspecified organism Qualified Code(s): J18.9 - Pneumonia, unspecified organism Code(s): J18.9 - Pneumonia, unspecified organism Status: Acute Assessment and Plan: Chest x-ray shows diffuse bilateral airspace disease and bilateral pleural effusions present on admission.? Suspect majority this is fluid overload related to his inability to tolerate a full dialysis treatment.? He may have underlying pneumonia as well given the fever to 102 and bacteremia.? COVID and influenza tests were negative.? Still on 5L. Continue aggressive dialysis to improve fluid status.? Continue IV antibiotics.? Wean oxygen as tolerated. (3) Acute and chronic respiratory failure: Code(s): J96.20 - Acute and chronic respiratory failure, unspecified whether with hypoxia or hypercapnia Status: Acute Assessment and Plan: Patient wears 2-3 L of oxygen at home. He is still on 5 L despite dialysis. Fluid balance is about even. Discussed with Nephrology with plans for dialysis again tomorrow hopefully. Home O2 evaluation. (4) Volume overload: Code(s): E87.70 - Fluid overload, unspecified Status: Chronic Assessment and Plan: CT shows moderate to large pleural effusions with passive atelectasis, diffuse interstitial opacities in the lung consistent with pulmonary edema and moderate ascites.? Clinically he has anasarca related to inability tolerate dialysis.? Encouraged compliance with dialysis.? Thoracentesis is a consideration but would only be a temporary fix. Continue dialysis per Nephrology. (5) Chronic back pain: Code(s): M54.9 - Dorsalgia, unspecified; G89.29 - Other chronic pain Status: Acute Assessment and Plan: Patient with complaints of back pain and rib pain after fall.? He does have bruising noted in left flank.? CT Jeni/P does not reveal any concerning findings to suggest internal bleeding. He takes hydrocodone at home which we continued here. (6) End stage renal disease: Code(s): N18.6 - End stage renal disease Status: Chronic Assessment and Plan: As above.?Patient not able to tolerate HD well due to cramping pain. Patient was encouraged by multiple providers to be compliant with HD. Continue dialysis to improve fluid status as he tolerates.? Appreciate Nephrology input.? Anemia noted and probably related to renal failure.? EPO has been started. Plan for HD again tomorrow (7) Anemia: Code(s): D64.9 - Anemia, unspecified Status: Chronic Assessment and Plan: Secondary to renal insufficiency and chronic disease.? TSAT low in May. Continue Epogen.? Continue iron. (8) Diabetes: Code(s): E11.9 - Type 2 diabetes mellitus without complications Status: Chronic Assessment and Plan: A1c 6.7 in April.? The patient's blood gl
[2021-08-25 16:59] LABS: Vancomycin Random 12.6 ug/mL (10-20)
[2021-08-25 17:11] LABS: Glucose Point of Care 114 mg/dl (65-105)
[2021-08-25 19:26] LABS: Pneumococcal Antigen Urine Not Detected (Not Detected)
[2021-08-25 20:22] LABS: Glucose Point of Care 154 mg/dl (65-105)
[2021-08-25] MEDS: AMITRIPTYLINE HCL 25 MG TABLET 50 MG PO (20:36)
[2021-08-25] MEDS: ATORVASTATIN 40 MG TABLET PO (20:37)
[2021-08-25] MEDS: MELATONIN 5 MG TABLET PO (20:37)
--- NOTE | 2021-08-25 23:08 | PC.NURSE ---
PT STATES HE FELL 2 WEEKS AGO, INFORMED PT WE NEED TO PUT BED ALARM ON FOR HIS SAFETY. PT EXTREMELY UPSET STATES HE DOES NOT WANT BED ALARM ON. STARTED YELLING AND BECOMING AGITATED.
[2021-08-25 23:55] LABS: Legionella pneumophila Ag Ur Not Detected (Not Detected)
[2021-08-26 00:13] LABS: Glucose Point of Care 242 mg/dl (65-105)
[2021-08-26 04:31] VITALS: BP 165/86; PULSE 95; RESP 18; TEMP 36.1; O2SAT 94
[2021-08-26] MEDS: hydrALAZINE HCL 50 MG TABLET 100 MG PO (06:20)
[2021-08-26] MEDS: LEVOTHYROXINE SODIUM 50 MCG TABLET PO (06:21)
[2021-08-26 08:00] VITALS: O2SAT 95
[2021-08-26 08:00] LABS: Glucose Point of Care 290 mg/dl (65-105)
[2021-08-26] MEDS: SEVELAMER CARBONATE 800 MG TABLET 1600 MG PO ×2 (08:08→12:17)
[2021-08-26] MEDS: FERROUS SULFATE 324 MG TABLET PO (08:08)
[2021-08-26] MEDS: VITAMIN B CMPLX/VIT C/FOLIC AC 1 CAPSULE 1 CAP PO (08:09)
[2021-08-26] MEDS: CALCIUM ACETATE 667 MG TABLET 1334 MG PO ×2 (08:09→12:17)
[2021-08-26] MEDS: ASPIRIN 81 MG CHEWABLE TABLET PO (08:09)
[2021-08-26] MEDS: ESCITALOPRAM OXALATE 10 MG TABLET 20 MG PO (08:10)
[2021-08-26] MEDS: minoxidiL 2.5 MG TABLET PO (08:10)
[2021-08-26] MEDS: FUROSEMIDE 80 MG TABLET PO (08:10)
[2021-08-26] MEDS: FAMOTIDINE 20 MG TABLET PO (08:10)
[2021-08-26 08:11] VITALS: PULSE 95
[2021-08-26] MEDS: carvediloL 25 MG TABLET PO (08:11)
[2021-08-26] MEDS: HEPARIN SODIUM 5,000 UNITS/ML VIAL 5000 UNITS SUB-Q (08:12)
[2021-08-26] MEDS: cloNIDine HCL 0.1 MG TABLET 0.3 MG PO (08:12)
[2021-08-26] MEDS: INSULIN ASPART (*BKC) 100 UNITS/ML SUB-Q ×2 (08:18→12:18)
[2021-08-26] MEDS: INSULIN GLARGINE (*BKC) 100 UNITS/ML 18 UNITS SUB-Q (08:24)
--- NOTE | 2021-08-26 08:31 | PM.IMPN ---
Progress Note: A&P Assessment and Plan (1) Sepsis: Code(s): A41.9 - Sepsis, unspecified organism Status: Acute Assessment and Plan: Present on admission with leukocytosis, fever and tachycardia.? Now with bacteremia consistent with septicemia.? Probably related to pneumonia.? Consider skin source although no obvious nidus with the exception that he has the fistula that is accessed frequently.?He has chronic lesions on his feet but dry without evidence of infection. Was started on Rocephin and vancomycin (started 08/20).? One blood culture growing coag-negative staph and the 2nd growing Group G Streptococcus both sensitive to Vancomycin. Suspect Strept PNA and that the CNStaph is a contaminant but can not completely exclude given the fevers. Repeat blood cultures NGTD. 08/26: Patient completed 7 days of vancomycin, repeat cultures negative, suspect source is pneumonia, however, clinical picture was complicated by volume overload. Recommended the patient stay for IV antibiotics until repeat blood cultures finalized. Patient refused. He stated he was going home today either way. Will arrange for vancomycin infusions with dialysis for the next 2 weeks and have blood cultures followed up outpatient to confirm resolution. If they remain positive, patient will need further care and workup to find the source. If they are negative, patient can complete the 14 day course of vancomycin. (2) Pneumonia: Qualifiers: Laterality: left Lung location: lower lobe of lung Pneumonia type: due to unspecified organism Qualified Code(s): J18.9 - Pneumonia, unspecified organism Code(s): J18.9 - Pneumonia, unspecified organism Status: Acute Assessment and Plan: Chest x-ray shows diffuse bilateral airspace disease and bilateral pleural effusions present on admission.? Suspect majority this is fluid overload related to his inability to tolerate a full dialysis treatment.? He may have underlying pneumonia as well given the fever to 102 and bacteremia.? COVID and influenza tests were negative.? Weaned back to home O2. (3) Acute and chronic respiratory failure: Code(s): J96.20 - Acute and chronic respiratory failure, unspecified whether with hypoxia or hypercapnia Status: Acute Assessment and Plan: Patient wears 2-3 L of oxygen at home. Back to O2 baseline at this point (4) Volume overload: Code(s): E87.70 - Fluid overload, unspecified Status: Chronic Assessment and Plan: CT shows moderate to large pleural effusions with passive atelectasis, diffuse interstitial opacities in the lung consistent with pulmonary edema and moderate ascites.? Clinically he has anasarca related to inability tolerate dialysis.? Encouraged compliance with dialysis. Continue dialysis per Nephrology. (5) Chronic back pain: Code(s): M54.9 - Dorsalgia, unspecified; G89.29 - Other chronic pain Status: Acute Assessment and Plan: Patient with complaints of back pain and rib pain after fall.? He does have bruising noted in left flank.? CT Jeni/P does not reveal any concerning findings to suggest internal bleeding. He takes hydrocodone at home which we continued here. (6) End stage renal disease: Code(s): N18.6 - End stage renal disease Status: Chronic Assessment and Plan: As above.?Patient not able to tolerate HD well due to cramping pain. Patient was encouraged by multiple providers to be compliant with HD. Continue dialysis to improve fluid status as he tolerates.? Appreciate Nephrology input.? Anemia noted and probably related to renal failure.? EPO has been started. Plan for HD again tomorrow (7) Anemia: Code(s): D64.9 - Anemia, unspecified Status: Chronic Assessment and Plan: Secondary to renal insufficiency and chronic disease.? TSAT low in May. Continue Epogen.? Continue iron. (8) Diabetes: Code(s): E11.9 - Type 2 diabet
[2021-08-26 09:16] LABS: Basophils Absolute Auto 0.1 K/mm3 (0.0-0.1); Basophils Percent Auto 0.9 % (0.2-1.2); Eosinophils Absolute Auto 0.4 K/mm3 (0-0.3); Eosinophils Percent Auto 5.6 % (0-4.4); Hematocrit 29.1 % (42.0-52.0); Hemoglobin 9.1 g/dL (14.0-18.0); Immature Granulocyte Absolute 0.05 K/mm3 (0.00-0.031); Immature Granulocyte Percent A 0.7 % (0-0.5); Lymphocytes Absolute Auto 1.19 K/mm3 (0.9-3.2); Lymphocytes Percent Auto 17.4 % (18.3-44.2); Mean Corpuscular HGB Conc 31.3 g/dl (32-36); Mean Corpuscular Hemoglobin 29.4 pg (26-34); Mean Corpuscular Volume 93.9 fl (80-100); Mean Platelet Volume 9.3 fl (7.4-10.4); Monocytes Absolute Auto 0.5 K/mm3 (0.1-0.6); Monocytes Percent Auto 7.5 % (2.6-8.5); Neutrophils Absolute Auto 4.6 K/mm3 (1.3-6.7); Neutrophils Percent Auto 67.9 % (45.5-73.1); Platelet Count Result 208 k/mm3 (150-375); Red Cell Distribution Width 15.8 % (11.5-14.5); White Blood Count 6.8 K/mm3 (4.5-10.0)
[2021-08-26 09:45] VITALS: O2SAT 93
[2021-08-26 09:50] VITALS: O2SAT 89
[2021-08-26 10:00] VITALS: O2SAT 94
--- NOTE | 2021-08-26 10:02 | PM.PNNEP ---
Progress Note: A&P Assessment and Plan (1) End-stage renal disease (ESRD): Onset Date: Unknown Code(s): N18.6 - End stage renal disease Status: Chronic Assessment and Plan: HD Wednesday schedule. Will get next treatment tomorrow. Either here or at [place]. follow electrolytes, volume status, and clearance Okay for discharge from the kidney standpoint. (2) Pneumonia: Qualifiers: Laterality: left Lung location: lower lobe of lung Pneumonia type: due to unspecified organism Qualified Code(s): J18.9 - Pneumonia, unspecified organism Code(s): J18.9 - Pneumonia, unspecified organism Status: Acute Assessment and Plan: etiology of fever(?) follow culture data empiric antibiotics He is back down to2L of oxygen. He is on this at home. follow respiratory status . Pulse ox 95% on 3L. (3) Hypertension: Qualifiers: Hypertension type: essential hypertension Qualified Code(s): I10 - Essential (primary) hypertension Code(s): I10 - Essential (primary) hypertension Status: Chronic Assessment and Plan: Blood pressure is ranging from 150-170. It is difficult to control as an outpatient. He still has some fluid on. Will continue to remove this on his dialysis days. Unfortunately he signed off 2hours early yesterday so not as much fluid was removed as we potentially could have. He does this as an outpatient as well. He gains large amounts of weight between treatments and then cannot take fluid off during the treatments. We discussed multiple times how he needs to cut back on salt and fluid intake. Continue to adjust meds as an outpatient to help his blood pressure. (4) Anemia: Onset Date: Unknown Qualifiers: Anemia type: due to chronic kidney disease Chronic kidney disease stage: on chronic dialysis Qualified Code(s): N18.6 - End stage renal disease; D63.1 - Anemia in chronic kidney disease; Z99.2 - Dependence on renal dialysis Code(s): D64.9 - Anemia, unspecified Status: Chronic Assessment and Plan: due to ESRD Epogen with HD Hemoglobin 10 yesterday (5) Type 1 diabetes: Qualifiers: Diabetes mellitus complication status: with kidney complications Diabetes mellitus complication detail: with chronic kidney disease Chronic kidney disease stage: on chronic dialysis Qualified Code(s): E10.22 - Type 1 diabetes mellitus with diabetic chronic kidney disease; N18.6 - End stage renal disease; Z99.2 - Dependence on renal dialysis Code(s): E10.9 - Type 1 diabetes mellitus without complications Status: Chronic Assessment and Plan: etiology of ESRD brittle control at baseline glycemic control Will continue to follow (6) Bacteremia: Code(s): R78.81 - Bacteremia Status: Acute Subjective Date/time seen: 08/26/21 10:02 Interval history: I feel back to baseline Eager for discharge. he had dialysis yesterday but signed off 2hours early. UF not documented but probably at least 2L was removed Since they were going for 4. Exam Narrative: General: WD/WN male in NAD Heart: normal S1 and S2; no rub or gallop Lungs: coarse with decreased breath sounds at bases Abdomen: soft, nontender, nondistended, positive bowel sounds Extremities: no cyanosis or clubbing; 1+ Bilateral edema Skin: no rash Objective Data Vital Signs Vital Signs: Vital Signs - 24 hr 08/25/21 14:10 08/25/21 14:20 08/25/21 14:20 Temperature 35.9 C L Pulse Rate 80 80 Respiratory Rate 18 Blood Pressure 190/116 H 190/116 H Pulse Oximetry Oxygen Delivery Oxygen Flow Rate 5 08/25/21 14:40 08/25/21 15:00 08/25/21 15:20 Temperature Pulse Rate 82 84 86 Respiratory Rate Blood Pressure 170/111 H 180/113 H 171/98 H Pulse Oximetry Oxygen Delivery Oxygen Flow Rate 08/25/21 15:40
--- NOTE | 2021-08-26 10:50 | HOMEO2EVAL ---
Evaluation was performed at [facility] Home Oxygen Evaluation RC: Home Oxygen (O2) Evaluation Start: 08/25/21 17:09 Freq: ONCE Status: Active Protocol: RPE Activity Type Activity Date Activity User E-sign Co-sign Detail Recorded Client Recorded Date Recorded By Document 08/26/21 09:45 TAMIKA [id number] 08/26/21 10:50 TAMIKA Document 08/26/21 09:50 TAMIKA [id number] 08/26/21 10:50 TAMIKA Document 08/26/21 10:00 TAMIKA [id number] 08/26/21 10:50 TAMIKA 08/26/21 08/26/21 08/26/21 09:45 09:50 10:00 Home O2 Evaluation Test Phase Resting Exercise Resting Oxygen Delivery Nasal Cannula Nasal Cannula Nasal Cannula Oxygen Flow Rate (L/min) 3 3 3 Pulse Oximetry (90-100 %) 93 89 L 94 Home Oxygen Evaluation Comments PT REQUIRES 3 L REST AND ACTIVITY. PT HAS PORTABLE CONCENTRATOR Treatment Charges O2 Evaluation - Inpatient
--- NOTE | 2021-08-26 10:50 | PCRCNOTE ---
HOME O2 EVAL DONE. 3 L AT REST AND WITH ACTIVITY. PT HAS A PORTABLE CONCENTRATOR, STATES HE DOESNT HAVE A DME THAT SERVICES HIS O2. MOTHER WILL BRING HOS O2 WHEN D/C. RN NOTIFIED
[2021-08-26 12:05] LABS: Glucose Point of Care 303 mg/dl (65-105)
--- NOTE | 2021-08-30 17:41 | PM.DS ---
DS: Admitting Diagnosis Discharge Date 08/26/21 Admitting Diagnosis Fever with fatigue and shortness of breath DS: Discharge Diagnosis Discharge Diagnosis (1) Sepsis: Code(s): A41.9 - Sepsis, unspecified organism Status: Acute Assessment and Plan: Present on admission with leukocytosis, fever and tachycardia.? Now with bacteremia consistent with septicemia.? Probably related to pneumonia.? Consider skin source although no obvious nidus with the exception that he has the fistula that is accessed frequently.?He has chronic lesions on his feet but dry without evidence of infection. Was started on Rocephin and vancomycin (started 08/20).? One blood culture growing coag-negative staph and the 2nd growing Group G Streptococcus both sensitive to Vancomycin. Suspect Strept PNA and that the CNStaph is a contaminant but can not completely exclude given the fevers. Repeat blood cultures NGTD. 08/26: Patient completed 7 days of vancomycin, repeat cultures negative, suspect source is pneumonia, however, clinical picture was complicated by volume overload. Recommended the patient stay for IV antibiotics until repeat blood cultures finalized. Patient refused. He stated he was going home today either way. Will arrange for vancomycin infusions with dialysis for the next 2 weeks and have blood cultures followed up as outpatient to confirm resolution. If they remain positive, patient will need further care and workup to find the source. If they are negative, patient can complete the 14 day course of vancomycin. Blood cultures from August 22 were both negative. (2) Pneumonia: Qualifiers: Laterality: left Lung location: lower lobe of lung Pneumonia type: due to unspecified organism Qualified Code(s): J18.9 - Pneumonia, unspecified organism Code(s): J18.9 - Pneumonia, unspecified organism Status: Acute Assessment and Plan: Chest x-ray shows diffuse bilateral airspace disease and bilateral pleural effusions present on admission.? Suspect majority this is fluid overload related to his inability to tolerate a full dialysis treatment.? He may have underlying pneumonia as well given the fever to 102 and bacteremia.? COVID and influenza tests were negative.? Weaned back to home O2. (3) Acute and chronic respiratory failure: Code(s): J96.20 - Acute and chronic respiratory failure, unspecified whether with hypoxia or hypercapnia Status: Acute Assessment and Plan: Patient wears 2-3 L of oxygen at home. Back to O2 baseline at this point (4) Volume overload: Code(s): E87.70 - Fluid overload, unspecified Status: Chronic Assessment and Plan: CT shows moderate to large pleural effusions with passive atelectasis, diffuse interstitial opacities in the lung consistent with pulmonary edema and moderate ascites.? Clinically he has anasarca related to inability tolerate dialysis.? Encouraged compliance with dialysis. Continue dialysis per Nephrology. (5) Chronic back pain: Code(s): M54.9 - Dorsalgia, unspecified; G89.29 - Other chronic pain Status: Acute Assessment and Plan: Patient with complaints of back pain and rib pain after fall.? He does have bruising noted in left flank.? CT Jeni/P does not reveal any concerning findings to suggest internal bleeding. He takes hydrocodone at home which we continued here. (6) End stage renal disease: Code(s): N18.6 - End stage renal disease Status: Chronic Assessment and Plan: As above.?Patient not able to tolerate HD well due to cramping pain. Patient was encouraged by multiple providers to be compliant with HD. Continue dialysis to improve fluid status as he tolerates.? Appreciate Nephrology input.? Anemia noted and probably related to renal failure.? EPO has been started. (7) Anemia: Code(s): D64.9 - Anemia, unspecified Status: Chronic Assessment and Plan: Secondary t
== END 2021-08-26 13:33 | disposition home or self-care (01) | DRG 871 ==
LOC: ANHED 06:50 → ANHIMU 08:03 → ANH2MED 13:37
PROVIDERS: Internal Medicine; Internal Medicine Nephrology; Admitting Provider Internal Medicine; Emergency Provider Emergency Medicine; PCP Physician Assistant; Visit Provider Student in an Organized Health Care Education/Training Program
DX: A41.9 Sepsis, unspecified organism; J18.9 Pneumonia, unspecified organism; N18.6 End stage renal disease; J96.20 Acute and chronic respiratory failure, unspecified whether with hypoxia or hypercapnia; I12.0 Hypertensive chronic kidney disease with stage 5 chronic kidney disease or end stage renal disease; D63.1 Anemia in chronic kidney disease; G40.909 Epilepsy, unspecified, not intractable, without status epilepticus; E10.22 Type 1 diabetes mellitus with diabetic chronic kidney disease; Z99.2 Dependence on renal dialysis; E87.70 Fluid overload, unspecified; N25.0 Renal osteodystrophy; Z20.822 Contact with and (suspected) exposure to COVID-19; F17.220 Nicotine dependence, chewing tobacco, uncomplicated; J45.909 Unspecified asthma, uncomplicated; M54.9 Dorsalgia, unspecified; G89.29 Other chronic pain; Z91.81 History of falling; F32.A Depression, unspecified; F41.9 Anxiety disorder, unspecified; Z79.4 Long term (current) use of insulin; Z79.899 Other long term (current) drug therapy; Z86.16 Personal history of COVID-19; Z99.81 Dependence on supplemental oxygen
CPT/HCPCS: 36415; 71045; 71250; 74176; 80053; 80069; 80185; 80202; 82565; 82948; 83735; 85025; 85027; 87040; 87070; 87147; 87186; 87205; 87449; 87502; 87899; 93005; 94618; 96365; 96366; 96367; 96368; 96375; 96376; 99285; A9270; C9803; G0257; G0378; J0131; J0456; J0696; J1170; J1644; J1815; J2060; J2405; J2543; J3370; J7030; Q5105; U0003; U0005

== ENCOUNTER 2021-09-02 20:04 | Observation (INO) | payer MEDICARE, MEDICAID, SELFPAY ==
--- NOTE | ~2021-09-02 | XR_ITS ---
XR chest 1V portable 09/02/2021 20:47 Indication: Shortness of breath. Hypertension. Low oxygen saturations. Procedure: AP portable chest Comparison: Comparison to multiple prior studies sequentially, with oldest reviewed study dated 06/06. Findings: Cardiomegaly with interstitial edema. Large left and small right pleural effusions. No pneu mothorax. Impression: 1: Cardiomegaly with interstitial edema. 2: Bilateral pleural effusions, left greater than right. Reviewed, dictated and finalized at location A. Impression: 1: Cardiomegaly with interstitial edema. 2: Bilateral pleural effusions, left greater than right.
--- NOTE | 2021-09-02 20:12 | ECG_ITS ---
Measurements Intervals [place] Rate: 81 P: 56 VA: 145 QRS: 43 QRSD: 102 T: 73 QT: 417 QTc: 485 Interpretive Statements SINUS RHYTHM LOW QRS VOLTAGE IN LIMB LEADS CANNOT RULE OUT SEPTAL INFARCT, AGE INDETERMINATE BORDERLINE ST-T WAVE ABNORMALITY- HIGH LATERAL LEADS BASELINE ARTIFACT- I, III, AVR, AVL, AVF, V1-V3, V6 ABNORMAL ECG Electronically Signed On 09-02-2021 21:28:37 CDT by Lokesh Luna D.O.
[2021-09-02 20:20] VITALS: BP 170/87; PULSE 92; RESP 32; TEMP 36.3; O2SAT 80
--- NOTE | 2021-09-02 20:35 | ED.SOB ---
HPI - SOB/Dyspnea General Chief Complaint: Shortness of Breath/Dyspnea Stated Complaint: sob Time Seen by Provider: 09/02/21 20:31 History of Present Illness HPI Narrative: Patient is a 40-year-old male who presents ER with shortness of breath. Has history of end-stage renal disease and gets dialysis. Last dialysis was yesterday and it pulled out 4.5 L. He is oxygen dependent on home O2. He was wearing his home O2 and was satting 80% upon arrival. Reports he has felt persistently short of breath since leaving the hospital on 08/29/2021. No chest pain or chest pressure. Mild cough that is nonproductive. He did feel some chills last night but no documented fevers. Patient is unsure if he has had increased weight gain. Denies any increase in lower extremity edema. Related Data Home Medications Medication Instructions Recorded Confirmed albuterol sulfate 90 mcg/actuation 2 puff inhalation Q6H PRN Wheezing 11/04/19 08/20/21 aerosol inhaler (Ventolin HFA) hydralazine 50 mg tablet 100 mg PO TID 11/04/19 08/20/21 amitriptyline 25 mg tablet 50 mg PO HS 06/01/20 08/20/21 calcium acetate 2 tablet PO TIDWMEAL 06/01/20 08/20/21 escitalopram oxalate 20 mg tablet 20 mg PO DAILY ##0 06/01/20 08/20/21 famotidine 20 mg tablet 20 mg PO BID 06/01/20 08/20/21 insulin glargine 100 unit/mL 15 unit subcut QAM 06/01/20 08/20/21 subcutaneous solution (Lantus U-100 Insulin) insulin lispro 100 unit/mL See Rx Instructions .Route .COMPLEX 06/02/20 08/20/21 subcutaneous solution (Humalog U-100 Insulin) phenytoin sodium extended 100 mg See Rx Instructions .Route .COMPLEX 06/02/20 08/20/21 capsule (Dilantin Extended) aspirin 81 mg chewable tablet 81 mg PO DAILY 04/14/21 08/20/21 atorvastatin 40 mg tablet 40 mg PO HS 04/14/21 08/20/21 carvedilol 25 mg tablet 25 mg PO BID 04/14/21 08/20/21 clonidine HCl 0.3 mg tablet 0.3 mg PO BID 04/14/21 08/20/21 levothyroxine 50 mcg tablet 50 mcg PO DAILY 04/14/21 08/20/21 furosemide 80 mg tablet 80 mg PO BID 06/06/21 08/20/21 vitamin B comp no.3-folic acid 1 1 tablet PO DAILY 06/06/21 08/20/21 mg-vit C 60 mg-biotin 300 mcg tablet ([facility] Rx) sevelamer carbonate 800 mg tablet 1,600 mg PO TIDWM 07/18/21 08/20/21 (Renvela) Allergies Allergy/AdvReac Type Severity Reaction Status Date / Time Penicillins Allergy Unknown Unknown Verified 08/20/21 14:59 Sulfa (Sulfonamide Allergy Unknown Unknown Verified 08/20/21 14:59 Antibiotics) chlorpromazine Allergy Rash Verified 08/20/21 14:59 [From Thorazine] iohexol Allergy Anaphylaxis Verified 08/20/21 14:59 [From contrast - CT, X-RAY] divalproex sodium AdvReac Severe Confusion, Verified 08/20/21 14:59 [From Depakote] Seizure, Hallucinations fluorescein AdvReac Severe HIVES, BP Verified 08/20/21 14:59 DROPPED, SWELLING TONGUE valproic acid AdvReac Hallucinati Verified 08/20/21 15:56 ng Review of Systems Review of Systems: All systems reviewed & are unremarkable except as noted in HPI and below Constitutional: Constitutional: Reports chills and Denies fever(s) ENT: Denies nasal congestion and Denies sore throat Cardiovascular: Cardiovascular: Denies chest pain, Denies rapid heart rate and Denies radiating jaw, neck or arm pain Respiratory: Respiratory: Reports cough, Reports dyspnea and Denies wheezing Gastrointestinal: Gastrointestinal: Denies abdominal pain, Denies nausea and Denies vomiting Musculoskeletal: Musculoskeletal: Denies myalgias, Denies arthralgias and Denies joint swelling [facility] Past Medical History Medical History Anemia requiring transfusions Anxiety and depression Asthma End stage renal disease on dialysis Erythropoietin deficiency anemia Hypertension Migraines Renal osteodystrophy Seizure disorder (10/2019) Type 1 diabetes Diagnosed at the age of 14. Hemoglobin A1c was 6.6% on 11/06/2020. Surgical History Surgical
[2021-09-02 20:45] VITALS: O2SAT 100
[2021-09-02 20:46] VITALS: PULSE 82
[2021-09-02 21:00] LABS: Alveolar/Arterial O2 Gradient 323.1 mmHg; Carboxyhemoglobin 1.9 % THb (0-2.0); Device NON-REBREATHER MASK; Fractional Inspired Oxygen 90 %; Methemoglobin ABG 0.1 %THb (0-1.5); Modified Allen's Test Pass; Oxygen Content ABG 21.7 %vol (16.0-22.0); Oxygen Saturation ABG 99.7 % (95.0-100.0); Oxyhemoglobin 97.4 % THb (90.0-100.0); PCO2 ABG 45.6 mmHg (35.0-45.0); PO2 ABG 271.9 mmHg (80.0-100.0); PO2 FiO2 Ratio Arterial Blood 3.02 %; Reduced Hemoglobin 0.6 %THb (0-5.0); Site Drawn LEFT RADIAL; Total Hemoglobin 15.4 g/dL (12.0-18.0)
[2021-09-02 21:04] VITALS: PULSE 86; RESP 19; O2SAT 100
[2021-09-02 22:59] LABS: Basophils Absolute Auto 0.1 K/mm3 (0.0-0.1); Basophils Percent Auto 0.6 % (0.2-1.2); Eosinophils Absolute Auto 0.6 K/mm3 (0-0.3); Eosinophils Percent Auto 6.7 % (0-4.4); Hematocrit 30.8 % (42.0-52.0); Hemoglobin 9.5 g/dL (14.0-18.0); Immature Granulocyte Absolute 0.03 K/mm3 (0.00-0.031); Immature Granulocyte Percent A 0.4 % (0-0.5); Lymphocytes Absolute Auto 0.79 K/mm3 (0.9-3.2); Lymphocytes Percent Auto 9.3 % (18.3-44.2); Mean Corpuscular HGB Conc 30.8 g/dl (32-36); Mean Corpuscular Hemoglobin 29.3 pg (26-34); Mean Corpuscular Volume 95.1 fl (80-100); Mean Platelet Volume 9.6 fl (7.4-10.4); Monocytes Absolute Auto 0.6 K/mm3 (0.1-0.6); Monocytes Percent Auto 6.7 % (2.6-8.5); Neutrophils Absolute Auto 6.5 K/mm3 (1.3-6.7); Neutrophils Percent Auto 76.3 % (45.5-73.1); Platelet Count Result 235 k/mm3 (150-375); Red Blood Count 3.24 M/mm3 (4.6-6.20); Red Cell Distribution Width 16.2 % (11.5-14.5); White Blood Count 8.5 K/mm3 (4.5-10.0)
[2021-09-02 23:11] LABS: Alanine Aminotransferase 35 U/L (6-50); Albumin Level 4.2 g/dL (3.5-5.1); Alkaline Phosphatase 226 U/L (38-126); Anion Gap 12 mmol/L (8-16); Aspartate Amino Transferase 39 U/L (17-59); Bilirubin,Total 0.8 mg/dL (0.2-1.3); Blood Urea Nitrogen 44 mg/dL (9-20); Calcium 8.9 mg/dL (8.4-10.2); Carbon Dioxide 33 mmol/L (22-30); Chloride 87 mmol/L (98-107); Estimated Glomerular Filt Rate 11; Glucose 517 mg/dL (65-110); Potassium 4.7 mmol/L (3.4-5.0); Sodium 132 mmol/L (137-145)
[2021-09-02 23:14] LABS: NT Pro B Type Natriuretic Pept > 35000 pg/mL (5-100)
--- NOTE | 2021-09-02 23:46 | PC.NURSE ---
3 nurse have tried to get an IV on this patient with no success including ED charge nurse. EDP cher aware of situation with no IV ultrasound RN on staff.
[2021-09-03] VITALS (30 sets, daily range): BP systolic 99–214; BP diastolic 47–101; PULSE 74–94; RESP 18–29; TEMP 35.5–36.9; O2SAT 91–100; BMI 19.1
--- NOTE | 2021-09-03 00:14 | PM.IMHP ---
H&P: HPI History of Present Illness Date/Time: 09/03/21 00:14 Chief Complaint: shortness of breath Narrative: This is a 41-year-old male with past medical history significant for type 1 diabetes mellitus, end-stage renal disease on hemodialysis, chronic right toe ulcer, hypertension, bacteremia. patient was just recently released from the hospital sent home with vancomycin treatments with dialysis for positive blood cultures however he returns through the emergency room due to worsening bilateral lower extremity edema and shortness of breath had his dialysis treatment as scheduled, at the time of my visit patient is on BiPAP so history taking is limited most has been obtain upon reviewing medical records and speaking to emergency room doctor. Preliminary workup was significant for chest x-ray with bilateral pleural effusions right-sided larger in size. Patient is been admitted for further evaluation management and treatment. Review of Systems Review of Systems: ROS unobtainable: Yes unobtainable due to medical condition ( on BiPAP) PMFSH Past Medical History Medical History Anemia requiring transfusions Anxiety and depression Asthma End stage renal disease on dialysis Erythropoietin deficiency anemia Hypertension Migraines Renal osteodystrophy Seizure disorder (10/2019) Type 1 diabetes Diagnosed at the age of 14. Hemoglobin A1c was 6.6% on 11/06/2020. Surgical History Surgical History History of appendectomy History of cholecystectomy Previous back surgery Status post creation of arteriovenous fistula Status post insertion of dialysis catheter Status post LASIK surgery of both eyes Family History Family History Mother Diabetes mellitus Cerebrovascular accident Father Hypertension Social History Social History Social History: The patient lives with his . He is disabled. He has no biological children but his has 1 child that he is raising. Former smoker. He denies any alcohol marijuana or illicit drug use. He designates his , Dorothea Zuniga, as his surrogate decision maker. Code status: Full code. Smoking packs per day: 0.25 Smoking cigarettes per day: 5.0 Years smoked: 4 Smoking pack-years: 1.00 Smoking status: Never smoker Smokeless tobacco user: chewing tobacco Second hand tobacco smoke exposure: No Alcohol intake: never Drinks per week: 10 Substance use: never Substance use type: does not use Spiritual care concerns: No Meds Home Medications and Allergies Home Medications Medication Instructions Recorded Confirmed Type albuterol sulfate 90 mcg/actuation 2 puff inhalation Q6H PRN Wheezing 11/04/19 09/03/21 History aerosol inhaler (Ventolin HFA) hydralazine 50 mg tablet 100 mg PO TID 11/04/19 09/03/21 History amitriptyline 25 mg tablet 50 mg PO HS 06/01/20 09/03/21 History calcium acetate 667 mg tablet 667 mg PO TIDWM ##0 06/01/20 09/03/21 History escitalopram oxalate 20 mg tablet 20 mg PO DAILY ##0 06/01/20 09/03/21 History famotidine 20 mg tablet 20 mg PO BID 06/01/20 09/03/21 History insulin glargine 100 unit/mL 15 unit subcut QAM 06/01/20 09/03/21 History subcutaneous solution (Lantus U-100 Insulin) insulin lispro 100 unit/mL See Rx Instructions .Route .COMPLEX 06/02/20 09/03/21 History subcutaneous solution (Humalog U-100 Insulin) phenytoin sodium extended 100 mg See Rx Instructions .Route .COMPLEX 06/02/20 09/03/21 History capsule (Dilantin Extended) minoxidil 2.5 mg tablet 2.5 mg PO BID #60 tabs 09/25/20 09/03/21 Rx aspirin 81 mg chewable tablet 81 mg PO DAILY 04/14/21 09/03/21 History atorvastatin 40 mg tablet 40 mg PO HS 04/14/21 09/03/21 History carvedilol 25 mg tablet 25 mg PO BID 04/14/21 09/03/21 History clonidine HCl 0.3 mg
[2021-09-03] MEDS: INSULIN ASPART (*BKC) 100 UNITS/ML 20 UNITS SUB-Q (00:56)
[2021-09-03] MEDS: INSULIN GLARGINE (*BKC) 100 UNITS/ML 15 UNITS SUB-Q ×2 (00:57→09:05)
--- NOTE | 2021-09-03 01:55 | PC.NURSE ---
NO IV ACCESS. TRIED TO GET IV ACCESS BY 3 NURSES, ED CHARGE NURSE AND COMPRESSOR STATION OPERATOR. EDP LEONEL AWARE AND STATES THERE IS NO REASON TO PUT A CENTRAL LINE IN THIS PATIENT. THIS PATIENT DOES NOT NEED AN IV UNLESS NECESSARY BECAUSE WE ARE UNABLE TO GET IV ACCESS AT THIS TIME.
[2021-09-03 02:08] LABS: Glucose Point of Care 420 mg/dl (65-105)
[2021-09-03 02:50] LABS: SARS-CoV-2 RNA PCR Negative
[2021-09-03] MEDS: HYDROmorphone HCL (*CRX) 2 MG TABLET 4 MG PO (03:20)
--- NOTE | 2021-09-03 03:30 | ADMGEN ---
This patient, Ari Zuniga, was admitted to IMU Room 200-01 on 09/03/21 at 0240. Patient/family oriented to hospital policies and general routines including ID bracelet, bed and alarms, visiting hours, pain management, procedures, bathroom and other care routines, personal items, smoking policy, room service/diet, and visiting hours. Information on how to activate the Rapid Response Team has been discussed. Patient/Family are encouraged to report perceived risks to care and to ask questions if they do not understand what they are told or what they should do.
[2021-09-03] MEDS: LEVOTHYROXINE SODIUM 50 MCG TABLET PO (07:03)
[2021-09-03 07:30] LABS: Vancomycin Random < 5.0 ug/mL (10-20)
[2021-09-03 08:14] LABS: Glucose Point of Care 168 mg/dl (65-105)
[2021-09-03] MEDS: hydrALAZINE HCL 50 MG TABLET 100 MG PO ×3 (08:38→18:25)
[2021-09-03] MEDS: carvediloL 25 MG TABLET PO ×2 (08:38→18:34)
[2021-09-03] MEDS: minoxidiL 2.5 MG TABLET PO ×2 (08:38→18:27)
[2021-09-03] MEDS: OPTI-GEN TAB 1 TABLET PO (08:39)
[2021-09-03] MEDS: FAMOTIDINE 20 MG TABLET PO ×2 (08:39→18:27)
[2021-09-03] MEDS: SEVELAMER CARBONATE 800 MG TABLET 1600 MG PO ×3 (08:39→18:26)
[2021-09-03] MEDS: cloNIDine HCL 0.1 MG TABLET 0.3 MG PO ×2 (08:39→18:26)
[2021-09-03] MEDS: ESCITALOPRAM OXALATE 10 MG TABLET 20 MG PO (08:39)
[2021-09-03] MEDS: CALCIUM ACETATE 667 MG TABLET PO ×3 (08:39→18:26)
[2021-09-03] MEDS: FUROSEMIDE 80 MG TABLET PO ×2 (08:40→18:26)
[2021-09-03] MEDS: PHENYTOIN SODIUM 100 MG EXTENDED RELEASE CAP BY MOUTH ×3 (08:40→18:27)
[2021-09-03] MEDS: SILVERGEL (ELTA) 45 ML 1 APPLIC TOPICAL (08:43)
[2021-09-03] MEDS: MORPHINE SULFATE (*CRX) 4 MG/ML INJ IV PUSH ×3 (09:09→22:25)
[2021-09-03 12:08] LABS: Glucose Point of Care 112 mg/dl (65-105)
[2021-09-03] MEDS: ONDANSETRON INJ 4 MG/2 ML VIAL IV PUSH (13:13)
--- NOTE | 2021-09-03 13:17 | PM.CNPUL ---
Assessment and Plan Assessment and plan (1) Pleural effusion: Code(s): J90 - Pleural effusion, not elsewhere classified Status: Acute Assessment and Plan: Due to noncompliance with medical regimen; noncompliant with diet and fluid restriction, drinks too much, feels depressed and anxious. This worsens his diabetes and volume overload. He had HD today with 3.8 L removed. He does not have symptoms c/w pneumonia. PLAN: thoracentesis tomorrow, evaluate the effusion and help remove some of the large volume of fluid he has. Wean O2 as tolerated. He saturation is better now, 98% on 3 L. At home uses 2 L/min, increases when his saturation drops with vol overload. He needs to have psychiatric evaluation for his anxiety and depression, now on escitalopram 20 mg a day for his mood. Has been on Xanax before. Needs talk therapy to help him take better care of himslef; would save on re-admissions. Part of his depression is divorce and of his step son in June 2021 with brain cancer. He had a thoracentesis x 2 when he was in the hospital in [place], [place] Jan 2021 with his broken hip, cardiac arrest, says that he on the table and had a pacemaker. I see no pacemaker on the CXR. Maybe he was temporarily paced. He says he was in the hospital a month and . (2) Acute and chronic respiratory failure: Code(s): J96.20 - Acute and chronic respiratory failure, unspecified whether with hypoxia or hypercapnia Status: Acute Assessment and Plan: Wears O2 at 2 L/min at baseline. His needs increase when he drinks too much fluid and has worsening anasarca. Nonsmoker. No history of lung disease. History of Present Illness History of Present Illness Consult date: 09/03/21 Requesting physician: Pascale Guillen MD Chief complaint: hypoxia,pleural effusion Narrative: patient was seen 09/03/2021 at 19:30; his father Oscar was at the bedside NEW CONSULT: Ari Zuniga is a 41 year old man admitted September 02 with acute hypoxemic respiratory failure and a very large left pleural effusion. He has DM type I since age 14, is on HD waiting a kidney transplant but is noncompliant with all management of his ESRD. 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 He always coughs, but does not have a diagnosis of lung disease. He has no sputum production, no wheezing. He was discharged on August 26, earlier than recommended because he did not want to stay for the antibiotics for his bacteremia. He has end-stage renal disease with anasarca. Arterial blood gas on admission pH 7.45, pCO2 45.6, pO2 271.9, HCO3 is 31, saturation 99% on 90% oxygen. Oxygen has been weaned. His WBC is normal. He is had HD today, 3.8 L removed. I saw him after this, after his dinner. DATA * 08/22/2021 - CT chest/abd/pelvis ?Moderate to large pleural effusions with passive atelectasis. Diffuse interstitial opacities of the lungs, consistent with pulmonary edema. Cardiomegaly with [id number] size pericardial effusion. Small to moderate volume of ascites. * 08/20/2021- CXR - Diffuse bilateral airspace disease may represent edema or pneumonia. ? Bilateral pleural effusions, left greater than right. Cardiomegaly. He tells me he had a seizure in August 2020, was treated at [facility] then transferred to [facility] in [place], [place]:, had a stroke. He has residual deficit including numbness in 4th and 5th fingers on right hand, weakness and poor balance. Review of Systems Review of Systems: All systems reviewed & are unremarkable except as noted in HPI and below PMFSH Past Medical History Medical History Anemia requiring transfusions Anxiety and depressi
--- NOTE | 2021-09-03 13:36 | PM.IMPN ---
Progress Note: A&P Assessment and Plan (1) Acute and chronic respiratory failure: Code(s): J96.20 - Acute and chronic respiratory failure, unspecified whether with hypoxia or hypercapnia Status: Acute Assessment and Plan: Patient with acute on chronic respiratory failure requiring BiPAP. Acute respiratory failure related to fluid overload possibly from noncompliance with fluid restriction. Patient also with chronic fluid overload related to inability to tolerate full dialysis treatments. Off BiPAP at this time. Continue aggressive hemodialysis to improve his fluid balance. Wean oxygen as tolerated. (2) Pleural effusion: Code(s): J90 - Pleural effusion, not elsewhere classified Status: Acute Assessment and Plan: Patient had a CT of the chest on 08/22/2021 showing moderate to large pleural effusions with passive atelectasis. Chest x-ray on admission here shows cardiomegaly with interstitial edema and left> right bilateral pleural effusion White count is normal. No fevers. He remains on vancomycin. Blood cultures are pending. Complete vancomycin but then hold further antibiotics at this time. (3) End-stage renal disease on hemodialysis: Code(s): N18.6 - End stage renal disease; Z99.2 - Dependence on renal dialysis Status: Acute Assessment and Plan: Patient has a history of inability to tolerate dialysis for full treatment. He also has history of noncompliance with fluid restriction between dialysis treatments. Patient is chronically fluid overloaded with pedal edema, ascites, and pleural effusions. Hemodialysis to continue while hospitalized. Nephrology consulted for hemodialysis instructions and appreciate their input. Continue PhosLo and Renvela (4) Hypertension: Qualifiers: Hypertension type: essential hypertension Qualified Code(s): I10 - Essential (primary) hypertension Code(s): I10 - Essential (primary) hypertension Status: Chronic Assessment and Plan: Blood pressure was markedly elevated to 214/101. He states he is compliant with his medications. We have restarted his minoxidil, hydralazine, clonidine, Coreg. He is also on Lasix. Blood pressure soft today. Will place parameters on some of his medications. (5) Type 1 diabetes mellitus: Onset Date: Unknown Qualifiers: Chronic kidney disease stage: on chronic dialysis Diabetes mellitus complication detail: with chronic kidney disease Diabetes mellitus complication status: with kidney complications Qualified Code(s): E10.22 - Type 1 diabetes mellitus with diabetic chronic kidney disease; N18.6 - End stage renal disease; Z99.2 - Dependence on renal dialysis Code(s): E10.9 - Type 1 diabetes mellitus without complications Status: Chronic Assessment and Plan: A1c 6.7 in April.? The patient's blood glucose was reviewed on 09/03 Glucose was 517 on admission but better now.? Continue AccuCheks covering with sliding scale.? Hypoglycemia protocol available as needed.? Continue current mediations (6) Bacteremia: Code(s): R78.81 - Bacteremia Status: Acute Assessment and Plan: Patient was hospitalized here on August 20 for fevers. Blood culture grew coag-negative staph and group G strep both sensitive to vancomycin. Sputum was positive for MRSA on 08/24/2021. After discussion with PharmD ID, plan was for vancomycin monotherapy with hemodialysis for 2 weeks. Treatment should be through 09/04/2021. (7) Chronic back pain: Code(s): M54.9 - Dorsalgia, unspecified; G89.29 - Other chronic pain Status: Acute Assessment and Plan: Patient was chronic back pain. He is requesting Dilaudid. Will instead use Tylenol and [place] which he takes at home. Have encouraged him to be out of bed. Plan DVT prophylaxis: Heparin Code status: Full Subjective Date/time seen: 09/03/21 13:36 Interval history: 41yo m
--- NOTE | 2021-09-03 14:08 | PC.NURSE ---
Patient off floor to dialysis at 1407. All vitals stable upon transfer to dialysis room.
--- NOTE | 2021-09-03 15:33 | P.CONNP_ITS ---
Assessment and Plan Assessment and plan (1) End-stage renal disease (ESRD): Onset Date: Unknown Code(s): N18.6 - End stage renal disease Status: Chronic Assessment and Plan: * HD today and continue dialysis 3x/week (Wed/Wed/Wednesday) * follow electrolytes, volume status, and clearance * push fluid removal with dialysis and reassess respiratory status * consider DUF treatment tomorrow for further fluid removal (2) Acute and chronic respiratory failure: Code(s): J96.20 - Acute and chronic respiratory failure, unspecified whether with hypoxia or hypercapnia Status: Acute Assessment and Plan: * due to fluid overload, pleural effusions along with recent hospitalization for pneumonia * HOWEVER, his chronic/recurrent fluid overload seems to be the major issue... * he signs off/ends his dialysis treatments early which limits how much fluid can be removed (does this both as an inpatient as well as outpatinet) * this is further complicated by his large fluid gains between treatments and subsequent inability to get to his dry weight * he has been counselled innumerable times how he needs to cut back on his salt and fluid take * continue aggressive fluid removal with dialysis as tolerated by hemodynamics * need thoracentesis??? * continue supplemental oxygen and BiPAP as needed (3) Hypertension: Qualifiers: Hypertension type: essential hypertension Qualified Code(s): I10 - Essential (primary) hypertension Code(s): I10 - Essential (primary) hypertension Status: Chronic Assessment and Plan: * quite hypertensive on admisson * well controlled at this time -- BP medications with parameters * suspect compliance issues since BP stable during previous hospitalization with taking home medications * follow trend of hemodynamics (4) Anemia: Onset Date: Unknown Qualifiers: Anemia type: due to chronic kidney disease Chronic kidney disease stage: on chronic dialysis Qualified Code(s): N18.6 - End stage renal disease; D63.1 - Anemia in chronic kidney disease; Z99.2 - Dependence on renal dialysis Code(s): D64.9 - Anemia, unspecified Status: Chronic Assessment and Plan: * due to ESRD * Epogen with HD * follow trend H/H (5) Bacteremia: Code(s): R78.81 - Bacteremia Status: Acute Assessment and Plan: * on last hospitalization earlier this month, blood cutures grew TONGUER and Group G strep * continue vancomycin with hemodialysis for 2 weeks (till 09/04/21). (6) Type 1 diabetes: Qualifiers: Chronic kidney disease stage: on chronic dialysis Diabetes mellitus com plication detail: with chronic kidney disease Diabetes mellitus complication status: with kidney complications Qualified Code(s): E10.22 - Type 1 diabetes mellitus with diabetic chronic kidney disease; N18.6 - End stage renal disease; Z99.2 - Dependence on renal dialysis Code(s): E10.9 - Type 1 diabetes mellitus without complications Status: Chronic Assessment and Plan: * etiology of ESRD * brittle control at baseline * glycemic control Will continue to follow History of Present Illness Reason for Consult Consult date: 09/03/21 Reason for consult: end stage renal disease Chief Complaint Chief complaint: hypoxia,pleural effusion History of Present Illness Narrative: 41-year-old male with past medical history significant for type 1 diabetes mellitus, end-stag
--- NOTE | 2021-09-03 15:33 | PM.CNNEP ---
Assessment and Plan Assessment and plan (1) End-stage renal disease (ESRD): Onset Date: Unknown Code(s): N18.6 - End stage renal disease Status: Chronic Assessment and Plan: HD today and continue dialysis 3x/week (Wed/Wed/Wednesday) follow electrolytes, volume status, and clearance push fluid removal with dialysis and reassess respiratory status consider DUF treatment tomorrow for further fluid removal (2) Acute and chronic respiratory failure: Code(s): J96.20 - Acute and chronic respiratory failure, unspecified whether with hypoxia or hypercapnia Status: Acute Assessment and Plan: due to fluid overload, pleural effusions along with recent hospitalization for pneumonia HOWEVER, his chronic/recurrent fluid overload seems to be the major issue... he signs off/ends his dialysis treatments early which limits how much fluid can be removed (does this both as an inpatient as well as outpatinet) this is further complicated by his large fluid gains between treatments and subsequent inability to get to his dry weight he has been counselled innumerable times how he needs to cut back on his salt and fluid take continue aggressive fluid removal with dialysis as tolerated by hemodynamics need thoracentesis??? continue supplemental oxygen and BiPAP as needed (3) Hypertension: Qualifiers: Hypertension type: essential hypertension Qualified Code(s): I10 - Essential (primary) hypertension Code(s): I10 - Essential (primary) hypertension Status: Chronic Assessment and Plan: quite hypertensive on admisson well controlled at this time -- BP medications with parameters suspect compliance issues since BP stable during previous hospitalization with taking home medications follow trend of hemodynamics (4) Anemia: Onset Date: Unknown Qualifiers: Anemia type: due to chronic kidney disease Chronic kidney disease stage: on chronic dialysis Qualified Code(s): N18.6 - End stage renal disease; D63.1 - Anemia in chronic kidney disease; Z99.2 - Dependence on renal dialysis Code(s): D64.9 - Anemia, unspecified Status: Chronic Assessment and Plan: due to ESRD Epogen with HD follow trend H/H (5) Bacteremia: Code(s): R78.81 - Bacteremia Status: Acute Assessment and Plan: on last hospitalization earlier this month, blood cutures grew [employer] and Group G strep continue vancomycin with hemodialysis for 2 weeks (till 09/04/21). (6) Type 1 diabetes: Qualifiers: Chronic kidney disease stage: on chronic dialysis Diabetes mellitus complication detail: with chronic kidney disease Diabetes mellitus complication status: with kidney complications Qualified Code(s): E10.22 - Type 1 diabetes mellitus with diabetic chronic kidney disease; N18.6 - End stage renal disease; Z99.2 - Dependence on renal dialysis Code(s): E10.9 - Type 1 diabetes mellitus without complications Status: Chronic Assessment and Plan: etiology of ESRD brittle control at baseline glycemic control Will continue to follow History of Present Illness Reason for Consult Consult date: 09/03/21 Reason for consult: end stage renal disease Chief Complaint Chief complaint: hypoxia,pleural effusion History of Present Illness Narrative: 41-year-old male with past medical history significant for type 1 diabetes mellitus, end-stage renal disease on hemodialysis, chronic right toe ulcer, hypertension, bacteremia. patient was just recently released from the hospital sent home with vancomycin treatments with dialysis for positive blood cultures however he returns through the emergency room due to worsening bilateral lower extremity edema and shortness of breath had his dialysis treatment as scheduled,? at the time of my visit patient is on BiPAP so history taking is limited most has been obtain upon reviewing medical records and spe
--- NOTE | 2021-09-03 15:34 | WPDPROCEDUR ---
Procedures Other Procedures Procedure 1: Other Procedure: HEMODIALYSIS PROCEDURE NOTE: Patient seen/evaluated on hemodialysis treatment at 3:00PM. He appears to be tolerating treatment reasonably well.
--- NOTE | 2021-09-03 18:22 | PC.NURSE ---
Patient returned to room 200 from dialysis. Report received from GISELLE Garcia. All vitals stable at this time.
[2021-09-03 18:30] LABS: Glucose Point of Care 56 mg/dl (65-105)
[2021-09-03 18:48] LABS: Glucose Point of Care 71 mg/dl (65-105)
[2021-09-03 19:00] LABS: Glucose Point of Care 81 mg/dl (65-105)
[2021-09-03 19:56] LABS: Glucose Point of Care 96 mg/dl (65-105)
[2021-09-03] MEDS: HEPARIN SODIUM 5,000 UNITS/ML VIAL 5000 UNITS SUB-Q (21:01)
[2021-09-03] MEDS: ATORVASTATIN 40 MG TABLET PO (21:02)
[2021-09-03] MEDS: AMITRIPTYLINE HCL 25 MG TABLET 50 MG PO (21:02)
[2021-09-04] VITALS: PULSE 97; RESP 20; O2SAT 100
[2021-09-04 02:00] VITALS: PULSE 72
--- NOTE | 2021-09-04 04:17 | PDCODEBLUE ---
Code Blue Note Code Blue Note Time Arrived at Code Blue: 4:00 am Initial Rhythm on Arrival: PEA Airway Management: Pt being bagged on arrival Chest Compressions: In process on arrival to bedside Result of Code Blue: Pt Cardiac Rhythm Post Code: Asystole Code Blue Summary: CODE [facility]IXON WAS CALLED PATIENT FOUND UNRESPONSIVE INITIAL RHYTHM PEA CHEST COMPRESSIONS AND BAG-VALVE ONGOING PATIENT RECEIVE EPINEPHRINE 1 MG IV PUSH X 3 CALCIUM GLUCONATE X1 FATHER WAS CALLED AND CODE WAS CALLED OFF. PATIENT
--- NOTE | 2021-09-04 04:25 | PC.NURSE ---
Rn walked enter pt's room to put on a monitor lead that had come on. Pt. was not responding or waking up. Pulse check showed no pulse. cpr was started at 0400 and gray batres was called. At 0408 pt's father was called to be informed of code blue. Rn talked to pt's father about pt's condition and pt's father decided to stop cpr and any other interventions. At 0410 time of was called.
--- NOTE | 2021-09-04 20:28 | P.DN_ITS ---
Discharge Summary Date and Time Date of : 09/04/21 Time of : 04:10 Provider Pronounced By: Dr. Guillen Probable Cause of Probable Cause of : Cardiac arrest Summary Hospital Course: Patient presented with acute respiratory failure requiring BiPAP. Patient has chronic fluid overload related to his inability to tolerate full dialysis treatments. History with BiPAP but was able to be weaned off. He received dialysis with improvement. In the machine set up operator paper goods hours, it was noted that patient's leads may have been off so the nursing went to check on him and found the patient unresponsive. Initial rhythm was PEA. CPR was started. He received epinephrine. Father was called but he does not want further attempts to resuscitate the patient. Patient at 4:10 a.m. on 09/04/2021. Additional Data Name of Provider Notified: Dr. Guillen at bedside Time Provider Notified: 04:10 Provider Requests Autopsy: No [employer] Officer Notified: Yes Date [facility] Notified of : 09/04/21 Time [facility] Notified of : 04:28
== END 2021-09-04 06:17 | disposition expired ==
LOC: ANHED 09-03 00:24 → ANHIMU 09-03 13:19
PROVIDERS: General Practice; Admitting Provider Internal Medicine; Emergency Provider Emergency Medicine; PCP Physician Assistant; Visit Provider Internal Medicine
DX: I46.9 Cardiac arrest, cause unspecified (principal); J96.20 Acute and chronic respiratory failure, unspecified whether with hypoxia or hypercapnia; Z99.81 Dependence on supplemental oxygen; F41.9 Anxiety disorder, unspecified; F32.A Depression, unspecified; N18.6 End stage renal disease; I13.11 Hypertensive heart and chronic kidney disease without heart failure, with stage 5 chronic kidney disease, or end stage renal disease; E11.22 Type 2 diabetes mellitus with diabetic chronic kidney disease; Z99.2 Dependence on renal dialysis; D63.1 Anemia in chronic kidney disease; N25.0 Renal osteodystrophy; Z90.49 Acquired absence of other specified parts of digestive tract; Z87.891 Personal history of nicotine dependence; R60.9 Edema, unspecified; J90 Pleural effusion, not elsewhere classified; Z20.822 Contact with and (suspected) exposure to COVID-19; R78.81 Bacteremia; L97.519 Non-pressure chronic ulcer of other part of right foot with unspecified severity; Z79.4 Long term (current) use of insulin; Z79.82 Long term (current) use of aspirin; Z79.899 Other long term (current) drug therapy
CPT/HCPCS: 36415; 36600; 71045; 80053; 80202; 82375; 82805; 82948; 83050; 83880; 85025; 87040; 92950; 93005; 94002; 96365; 96367; 96372; 96375; 96376; 99285; A9270; C9803; G0257; G0378; J0171; J0692; J1644; J1815; J2270; J2405; J3370; U0003; U0005